=== PATIENT | female | born 1945 | race Caucasian/White ===

== ENCOUNTER → 2017-06-17 | Day surgery (SDC) | payer MEDICARE, BC ==
[~2017-06-17] VITALS: Ht 162.6 cm; Wt 83.9 kg
[~2017-06-17] MED LIST: ACET-1697 PO; ASCO100T6 PO; ASCORBIC ACID PO; ASP81CT PO; CA C1TAB26 PO; CARV12.52; CHELATED ZINC PO; CHOL10008 PO; CHOL200018 PO; CLOP75TA PO; CLPD75T PO; DCS100C PO; FISH1CAP15 PO; FLINTSTONES; FLONASE; GABA-488 PO; GLIP5TAB13 PO; GLUCOSAMINE; HYDR-2890 PO; HYDR-31; HYDR-34 PO; HYDR-3720 PO; HYDR-3816 PO; HYDR1TAB75 PO; HYDR1TAB86 PO; IBP800T PO; IRON; JANUVIA PO; LSRT50T; LTN005OP2 OU; LVT.025T PO; LVT.05T PO; MAG PO; MAGN250T7 PO; MAGN27TA2 PO; METO50TA7 PO; MNTL10T PO; MTF500T PO; MULT-241 PO; MULT-974 PO; NTR.4SL SL; OMG1KC PO; Oxycodone Hcl/Acetaminophen PO; PRV20T PO; PYRI100T6 PO; PYRI200T5 PO; SITA100T PO; SMV20T PO; SODI0.5GEL TOP; VITA1CAP42 PO; VITAMIN B6 PO; ZINC LOZENGES; ZINC PO; [UNRECOGNIZED DRUG - CODE] PO
[2017-06-17 09:03] VITALS: BP 168/74
--- NOTE | 2017-06-17 12:19 | Cardiac Procedure Note-CS/ASA ---
Pre-Procedure Note Pre-Op Procedure Note H&P Reviewed The H&P was reviewed, patient examined and no changes noted. Date H&P Reviewed: Jun 17, 2017 Time H&P Reviewed: 11:45 Conscious Sedation Pre-Proced Time Reviewed: 11:45 ASA Class: 3 Airway Mallampati Classification: ([place] appropriate class) I. II. III, IV Lungs Heart ASA score ASA 1: a normal healthy patient ASA 2: a patient with a mild systemic disease (mid diabetes, controlled hypertension, obesity ASA 3: a patient with a severe systemic disease that limits activity (angina , COPD, prior Myocardial infarction) ASA 4: a patient with an incapacitating disease that is a constant threat to life (CHF, renal failure) ASA 5: a moribund patient not expected to survive 24 hrs. (ruptured aneurysm) ASA 6: a declared brain patient whose organs are being harvested. For emergent operations, add the letter E after the classification Grade 3 Sedation Plan: Analgesia, Amnesia, Plan communicated to team members, Discussed options with patient/fam, Discussed risks with patient/fam Note The patient is an appropriate candidate to undergo the planned procedure, sedation, and anesthesia. The patient immediately re-assessed prior to indication. CLARICE RUTH MD FACP FAC CCDS Jun 17, 2017 12:19
--- NOTE | 2017-06-17 15:47 | OPERATIVE REPORT ---
PROCEDURE PHYSICIAN: CLARICE RUTH DATE OF PROCEDURE: 06/17/2017 PREOPERATIVE DIAGNOSIS: Syncope, near syncope. PROCEDURE: Syncope, near syncope. PROCEDURE: Implantable loop recorder implantation. Aleyda Fontanez is a 71-year-old lady who has been experiencing episodes of near syncope. Implantable loop recorder was implanted after having obtained an informed consent. The left prepectoral area and the sternal area were prepared and draped in the usual sterile fashion. We made a small incision just to the left the sternum and used the tool provided with the [employer] implantable loop recorder to tunnel the device into a subcutaneous pocket and the pocket was closed with 3.0 Vicryl. She tolerated the procedure well. The device is [employer] device with the reference number [id number] and serial number [id number]. Job ID: [id number] Dictated Date: 06/17/2017 12:11:18 Resp Therapist Date: 06/17/2017 15:43:54 / stephani
== END | disposition home or self-care (01) ==
LOC: CATH 08:35
PROVIDERS: ATTEND Internal Medicine Cardiovascular Disease
DX: R55 Syncope and collapse (principal); G47.33 Obstructive sleep apnea (adult) (pediatric); I25.10 Atherosclerotic heart disease of native coronary artery without angina pectoris; R00.2 Palpitations; E78.5 Hyperlipidemia, unspecified; I10 Essential (primary) hypertension; E03.9 Hypothyroidism, unspecified; E66.9 Obesity, unspecified; F41.9 Anxiety disorder, unspecified; Z79.899 Other long term (current) drug therapy; Z68.34 Body mass index [BMI] 34.0-34.9, adult; Z95.1 Presence of aortocoronary bypass graft
CPT/HCPCS: 33282

== ENCOUNTER → 2018-03-05 | Outpatient (CLI) | payer MEDICARE, BC ==
[~2018-03-05] VITALS: Ht 160 cm; Wt 85.7 kg
[~2018-03-05] MED LIST changes: +DEXAMETHASONE 10 MG/ML (DECADRON) 1 ML VIAL ONE; +methylPREDNISolone 80 MG/ML (DEPO MEDROL) VIAL ONE
[2018-03-05 14:40] VITALS: BP 177/74
[2018-03-05 15:11] VITALS: BP 186/74
--- NOTE | 2018-03-05 23:43 | OPERATIVE REPORT ---
DATE OF SERVICE: 03/05/2018 PREOPERATIVE AND POSTOPERATIVE DIAGNOSIS: Lumbar radiculopathy OPERATIVE PROCEDURE: Bilateral L5-S1 transforaminal epidural steroid injection. ANESTHESIA: Propofol. COMPLICATIONS: None. CLINICAL SURGICAL COURSE: After being placed in the prone position upon a procedure table, we then administered Propofol for anesthesia. The area overlying the (higher process, sacral ala) transverse process was identified under fluoroscopic guidance. The skin overlying the area was prepped with Betadine. The skin and the deep structures were anesthetized with 5 mL of 1% Lidocaine. A 25 gauge needle was then carried down to the neural foramen under direct fluoroscopic guidance. The needle was directed to lie under the pedicle at a 6 o'clock position. The needle depth was confirmed by lateral fluoroscopy. The tip of the needle was directed to the posterior aspect of the foramen. Following the appropriate positioning of the needle in the foramen, 1 cc of Isovue 300 was injected. A proximal and distal spread of the dye was noted. No vascular uptake was noted. Finally, 80 mg of Dexamethasone diluted in a total volume of 3 mms of preservative free saline was injected with good wash out of the contrast media observed. No blood, CSF or paresthesia was noted during the procedure. Job ID: [id number] DocumentID: [id number] Dictated Date: 03/05/2018 15:08:57 Studio Producer Date: 03/05/2018 23:43:28 Dictated By: ASH FRIEND DO
== END ==
LOC: CARD 13:39
PROVIDERS: ATTEND Pain Medicine Interventional Pain Medicine
DX: M54.16 Radiculopathy, lumbar region (principal)
CPT/HCPCS: 62321

== ENCOUNTER 2018-06-12 14:25 | Outpatient (RCR) | payer MEDICARE, BC ==
[~2018-06-12 14:25] MED LIST changes: -DEXAMETHASONE 10 MG/ML (DECADRON) 1 ML VIAL ONE; -methylPREDNISolone 80 MG/ML (DEPO MEDROL) VIAL ONE
== END 2018-06-15 | disposition home or self-care (01) ==
PROVIDERS: ATTEND Physician Assistant
DX: R26.9 Unspecified abnormalities of gait and mobility (principal)

== ENCOUNTER 2018-06-26 13:00 | Outpatient (RCR) | payer MEDICARE, BC | END 2018-06-26 15:11 | disposition home or self-care (01) | PROVIDERS: ATTEND Physician Assistant | DX: R26.9 Unspecified abnormalities of gait and mobility (principal); Z98.1 Arthrodesis status; E11.9 Type 2 diabetes mellitus without complications; F32.9 Major depressive disorder, single episode, unspecified; M81.0 Age-related osteoporosis without current pathological fracture; R42 Dizziness and giddiness ==

== ENCOUNTER → 2018-12-30 | Outpatient (CLI) | payer MEDICARE, BC ==
--- NOTE | 2018-12-30 19:45 | Diagnostic Imaging Report ---
INDICATION: Routine screening. Comparison is made with prior mammograms from 07/09/2016 and 11/19/2013. 2-D and 3-D bilateral screening mammography was performed with computer-aided Detection (CAD) system. FINDINGS: Scattered fibroglandular densities are identified bilaterally. There are benign calcifications bilaterally, more numerous on the right than the left. There is a biopsy clip in the upper right breast. No dominant mass or malignant-appearing microcalcifications are seen. A metallic device overlies the left axillary tail. The axillae are otherwise unremarkable. IMPRESSION: No mammographic features suspicious for malignancy are identified. ACR BI-RADS Category 2: Benign findings. Result letter will be mailed to the patient. Note: At least 10% of breast cancer is not imaged by mammography. Dictated by: Dictated on workstation # [id number]
== END ==
LOC: RAD 09:54
PROVIDERS: ATTEND Nurse Practitioner Family
DX: Z12.31 Encounter for screening mammogram for malignant neoplasm of breast (principal)
CPT/HCPCS: 77067

== ENCOUNTER → 2019-11-05 | Outpatient (CLI) | payer MEDICARE, BC | LOC: CARD 13:58 | PROVIDERS: ATTEND Nurse Practitioner Family | DX: I25.10 Atherosclerotic heart disease of native coronary artery without angina pectoris (principal); R07.9 Chest pain, unspecified; R06.09 Other forms of dyspnea; I10 Essential (primary) hypertension; E78.5 Hyperlipidemia, unspecified; I07.1 Rheumatic tricuspid insufficiency | CPT/HCPCS: 93306 ==

== ENCOUNTER → 2019-12-14 | Outpatient (CLI) | payer MEDICARE, BC ==
[~2019-12-14] VITALS: Ht 160 cm; Wt 87.0 kg
[~2019-12-14] MED LIST changes: +CATHETER FLUSH 10 ML SYR IV PRN; +REGADENOSON 0.4 MG/5 ML SYR (LEXISCAN) IV ONE; +meTOprolol 5 MG/5 ML (LOPRESSOR) VIAL IV ONE; +meTOprolol 5 MG/5 ML (LOPRESSOR) VIAL ONE
--- NOTE | 2019-12-14 11:11 | STRESS TEST ---
DATE OF SERVICE: 12/14/2019 RESTING AND POST REGADENOSON TECHNETIUM-99M TETROFOSMIN SPECT CT IMAGING ORDERING PHYSICIAN: Nataly Goodwin APRN PRIMARY PHYSICIAN: Dr. Ott. OTHER PHYSICIAN: Dr. Ruth. CLINICAL DIAGNOSES: Coronary artery disease. Baseline images were carried out after injection of 10.86 mCi of technetium-99m Tetrofosmin. This was followed by 0.4 mg regadenoson and 30.6 mCi of technetium-99m Tetrofosmin for stress imaging. There was subtle nonspecific ST abnormality at baseline. It did not change significantly with regadenoson infusion. The patient noted some headache following regadenoson infusion, which resolved in a few minutes. Overall, she tolerated the procedure well. Review of images at rest and following stress does not indicate significant perfusion defects consistent with myocardial ischemia or infarction. Gated images show normal global left ventricular systolic function with normal regional wall motion. Left ventricular ejection fraction is calculated to be 81%. Left ventricular end diastolic volume 37 mL. TID is absent (1). CONCLUSIONS: 1. No evidence of significant myocardial ischemia or infarction on this study. 2. Normal regional wall motion. 3. Normal to hyperdynamic left ventricular systolic function with a calculated ejection fraction of 81%. Job ID: [id number] DocumentID: [id number] Dictated Date: 12/14/2019 10:53:29 Math Professor Date: 12/14/2019 11:11:02 Dictated By: CLARICE RUTH MD, MA, FACP, FACC,
== END ==
LOC: CARD 07:33
PROVIDERS: ATTEND Nurse Practitioner Family
DX: I25.10 Atherosclerotic heart disease of native coronary artery without angina pectoris (principal); R07.89 Other chest pain; R06.09 Other forms of dyspnea; I10 Essential (primary) hypertension; E78.5 Hyperlipidemia, unspecified
CPT/HCPCS: 78452; 93017

== ENCOUNTER → 2020-01-27 | Outpatient (CLI) | payer MEDICARE, BC ==
[~2020-01-27] MED LIST changes: -CATHETER FLUSH 10 ML SYR IV PRN; -REGADENOSON 0.4 MG/5 ML SYR (LEXISCAN) IV ONE; -meTOprolol 5 MG/5 ML (LOPRESSOR) VIAL IV ONE; -meTOprolol 5 MG/5 ML (LOPRESSOR) VIAL ONE
== END ==
LOC: RAD 14:35
PROVIDERS: ATTEND Nurse Practitioner Family
DX: I70.213 Atherosclerosis of native arteries of extremities with intermittent claudication, bilateral legs (principal)
CPT/HCPCS: 93923

== ENCOUNTER 2020-05-23 06:28 | Outpatient (RCR) | payer MEDICARE, BC ==
[~2020-05-23] VITALS: Ht 162 cm; Wt 85.0 kg
[2020-05-24] MEDS ORDERED: CHOL20003 PO (13:34)
[2020-05-24] MEDS ORDERED: APIX5TAB PO (13:34)
[2020-05-24] MEDS ORDERED: NITR0.4T39 SL (13:34)
[2020-05-24] MEDS ORDERED: ASPI-586 PO (13:34)
[2020-05-24] MEDS ORDERED: [UNRECOGNIZED DRUG - CODE] PO (13:34)
[2020-05-24] MEDS ORDERED: FISH1CAP15 PO (13:34)
[2020-05-24] MEDS ORDERED: POLY15DR14 OP (13:34)
[2020-05-24] MEDS ORDERED: LEVO75TA PO (13:34)
[2020-05-24] MEDS ORDERED: CA C1TAB70 PO (13:34)
[2020-05-24] MEDS ORDERED: PEDI1TAB46 PO (13:34)
[2020-05-24] MEDS ORDERED: ATOR10TA66 PO (13:34)
[2020-05-24] MEDS ORDERED: PYRI100T10 PO (13:34)
[2020-05-24] MEDS ORDERED: LORA10CA PO (13:34)
[2020-05-24] MEDS ORDERED: LATA2.5D5 OP (13:34)
[2020-05-24] MEDS ORDERED: METO50TA7 PO (13:34)
== END 2020-05-24 13:47 | disposition home or self-care (01) ==
LOC: PREOP 06:28
PROVIDERS: ATTEND Specialist
DX: Z01.812 Encounter for preprocedural laboratory examination (principal); H26.9 Unspecified cataract; Z20.828 Contact with and (suspected) exposure to other viral communicable diseases
CPT/HCPCS: 87635

== ENCOUNTER 2020-05-26 07:57 | Day surgery (SDC) | payer MEDICARE, BC ==
[~2020-05-26] VITALS: Ht 160 cm; Wt 85.0 kg
[~2020-05-26 07:57] MED LIST changes: +APIX5TAB PO; +ASPI-586 PO; +ATOR10TA66 PO; +CA C1TAB70 PO; +CHOL20003 PO; +LATA2.5D5 OP; +LEVO75TA PO; +LORA10CA PO; +NITR0.4T39 SL; +PEDI1TAB46 PO; +POLY15DR14 OP; +PYRI100T10 PO; +[UNRECOGNIZED DRUG - CODE] PO
[2020-05-26] MEDS ORDERED: TIMOLOL MALEATE 0.5% 5 ML (TIMOPTIC) BTL OU PRN (08:00)
[2020-05-26] MEDS ORDERED: MOXIFLOXACIN OPHTH SOLN 5 MG/ML 0.3 ML SYRINGE OP ONE (08:00)
[2020-05-26] MEDS ORDERED: LIDOCAINE PF 1% 2 ML VIAL IR PRN (08:00)
[2020-05-26] MEDS ORDERED: POVIDONE (BETADINE) OPHTH SOLN 5% 30 ML OP ONE (08:00)
[2020-05-26 08:05] VITALS: BP 187/80
[2020-05-26] MEDS: TETRACAINE 0.5% OPHTH SOLN 4 ML BTL (SINGLE DOSE ONLY) OU PRN ×4 (08:16→08:32)
[2020-05-26] MEDS: PHENYLEPHRINE 10% OPHTH (NEO-SYN) 5 ML BTL OU SCH ×3 (08:22→08:32)
[2020-05-26] MEDS: CYCLOPENTOLATE 1% (CYCLOGYL) 2 ML DROPS OP SCH ×3 (08:22→08:32)
--- NOTE | 2020-05-26 09:22 | Ophthalmologist Pre-Op Note ---
Pre-Operative Progress Note H&P Reviewed The H&P was reviewed, patient examined and no changes noted. Date H&P Reviewed: May 26, 2020 Time H&P Reviewed: 09:22 Pre-Op Dx Cataract, Right Eye DEBBIE VIDAL MD May 26, 2020 09:22
[2020-05-26] MEDS ORDERED: MIDAZOLAM 2 MG/2 ML (VERSED) VIAL ONE (09:24)
[2020-05-26] MEDS ORDERED: acetaZOLAMIDE ER 500 MG CAP (DIAMOX SEQUELS) PO ONE (09:30)
--- NOTE | 2020-05-26 09:47 | Ophthalmology Operative Report ---
Cataract removal/placement IOL PREOPERATIVE DIAGNOSIS: Cataract Right Eye POSTOPERATIVE DIAGNOSIS: Cataract Right Eye PROCEDURE: Cataract removal and placement of posterior chamber implant, right eye SURGEON: Chuck Vidal ANESTHESIA: Topical with sedation COMPLICATIONS: None ESTIMATED BLOOD LOSS: Minimal DESCRIPTION OF PROCEDURE: After proper informed consent was obtained, the patient, a 75 female, was taken to the Operating Room and the right eye was anesthetized with tetracaine. The right eye was then prepped and draped in the usual manner. A wire lid speculum was placed. A paracentesis was made at the left hand position. Preservative free lidocaine was injected into the anterior chamber followed by viscoelastic. A clear corneal incision was made in the temporal position. A capsulorrhexis was preformed and the central nuclear and cortical material were removed. The posterior capsule was polished and Inder 22.5 AU00T0 IOL was placed into the capsular bag. The residual viscoelastic was aspirated and balanced saline solution was injected into the anterior chamber. Moxifloxacin was injected into the anterior chamber. The wound was checked and found to be water tight. The patient tolerated the procedure well without complications. CHUCK VIDAL MD May 26, 2020 09:47
[2020-05-26 09:55] VITALS: BP 172/75
--- OUTSIDE RECORDS SUMMARY | 2020-05-26 12:03 | XMS REPORT | CCD ---
Author Author Aleyda Ott la Organization Carmelina Ott MD, [facility] Address [facility] [place] [address] Phone Care Team Providers Care X Ray Developer Name Role Phone PP Unavailable CCM Unavailable Summary Purpose Interface Exchange Insurance Providers Payer name Policy type / Coverage type Covered alliance party ID Effective Begin Date Effective End Date WPS Medicare Part B Medicare Part B [id number] 2013 Unknown [facility] icare Part B [id number] 2013 Unkno wn Family history Brother Diagnosis Age At Onset Heart disease Unknown Sister Diagnosis Age At Onset endometrial cancer Unknown Father Diagnosis Age At Onset Heart disease Unknown Mother Diagnosis Age At Onset Heart disease Unknown Social History Social History Element Codes Description Effective Dates Marital status Unknown W idowed 01/14/[address]: [id number] Nonsmoker 01/14/2012 Has the patient ever used illegal drugs? Unknown Has never used illegal drugs 012 Allergies, Adverse Reactions, Alerts Substance Reaction Codes Entered Date Inactivated Date Status * NO KNOWN FOOD CAROLA RGIES Unknown 01/14/2012 No Inactive Date Active * NO KNOWN DRUG CAROLA RGIES Unknown 01/14/2012 No Inactive Date Active Past Medical History Illness Codes Condition Status Onset Date Resolved Date Essential (primary) hypertension ICD-9: 401.1 ICD-10: I10 Active 08/20/2016 Unknown Other specified hypo thyroidism ICD-9: 244.8 ICD-10: E03.8 Active 10/02/2016 Unknown Type 2 diabetes moisés itus without complications ICD-9: 250.00 ICD-10: E11.9 Active 07/07/2014 Unknown Allergic contact hortencia matitis due to cosmetics ICD-9: 692.81 ICD-10: L23.2 Active 06/24/2019 Unknown Rash and other nonsp ecific skin eruption ICD-9: 782.1 ICD-10: R21 Active 03/04/2017 Unknown Atrophy of thyroid ( acquired) ICD-9: 244.8 ICD-10: E03.4 Active 10/23/2016 Unknown Mixed hyperlipidemia ICD-9: 272.4 ICD-10: E78.2 Active 07/07/2014 Unknown Acute laryngopharyng itis ICD-9: 465.0 ICD-10: J06.0 Active 02/17/2019 Unknown Other allergic rhinitis ICD-9: 477.8 ICD-10: J30.89 Active 08/08/2017 Unknown Encounter for screen ing mammogram for malignant neoplasm of breast ICD-9: V76.10 ICD-10: Z12.31 Active 12/31/2018 Unknown Hypothyroidism, unsp ecified ICD-9: 244.9 ICD-10: E03.9 Active 07/07/2014 Unknown Other specified anemias ICD-9: 285.8 ICD-10: D64.89 Active 10/02/2016 Unknown 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 ICD-9: 250.60 ICD-10: E11.42 Active 01/17/2016 Unknown Pain in left leg ICD-9: 729.5 ICD-10: M79.605 Active 08/27/2018 Unknown Pain in right leg ICD-9: 729.5 ICD-10: M79.604 Active 08/27/2018 Unknown Other fatigue ICD-9: 780.79 ICD-10: R53.83 Active 07/23/2016 Unknown Chronic pain syndrome ICD-9: 338.4 ICD-10: G89.4 Active 07/10/2017 Unknown Unsteadiness on feet ICD-9: 781.2 ICD-10: R26.81 Active 02/24/2018 Unknown Vitamin B12 deficien cy anemia, unspecified ICD-9: 281.1 ICD-10: D51.9 Active 02/24/2018 Unknown Pain in left shoulder ICD-9: 719.41 ICD-10: M25.512 Active 11/03/2017 Unknown Major depressive dis order, recurrent, mild ICD-9: 296.31 ICD-10: F33.0 Active 07/10/2017 Unknown Myalgia ICD-9: 729.1 ICD-10: M79.1 Active 07/07/2014 Unknown Sacroiliitis, not el sewhere classified ICD-9: 720.2 ICD-10: M46.1 Active 03/06/2017 Unknown Encounter for genera l adult medical examination with abnormal findings ICD-9: V70.0 ICD-10: Z00.01 Active 11/03/2016 Unknown Pain in thoracic spine ICD-9: 724.1 ICD-10: M54.6 Active 10/02/2016 Unknown Insect bite (nonveno mous) of other part of head, initial encounter ICD-9: 910.4 ICD-10: S00.86XA Active 09/02/2016 Unknown Supraventricular tac hycardia ICD-9: 785.0 ICD-10: I47.1 Active 06/20/2015 Unknown Dermatographic urtic aria ICD-9: 708.3 ICD-10: L50.3 Active 12/20/2015 Unknown Essential (primary) hypertension ICD-9: 401.9 ICD-10: I10 Active 07/07/2014 Unknown Urticaria, unspecified ICD-9: 708.9 ICD-10: L50.9 Active 12/20/2015 Unknown EDEMA ICD-9: 782.3 Active 06/22/2015 Unknow n Elevated temperature ICD-9: 780.60 Active 06/22/2015 Unknown Dyspnea ICD-9: 786.09 Active 06/20/2015 Unknow n TACHYCARDIA ICD-9: 785.0 Active 06/20/2015 Unknow n LUMBAGO ICD-9: 724.2 Active 03/27/2015 Unknow n Sacroiliitis ICD-9: 720.2 Active 03/27/2015 Unknown Hyperlipidemia Unknown Active 07/07/2014 Unknow n DIABETES TYPE II ICD-9: 250.00 Active 07/07/2014 Unknown ESSENTIAL HYPERTENSION ICD-9: 401.9 Active 07/07/2014 Unknown HYPERLIPIDEMIA ICD-9: 272.4 Active 07/07/2014 Unknown HYPOTHYROIDISM ICD-9: 244.9 Active 07/07/2014 Unknown Muscle ache ICD-9: 729.1 Active 07/07/2014 Unknow n Peripheral neuropath y, idiopathic ICD-9: 356.9 Active 01/2014 Unknown Dietary counseling a nd surveillance ICD-9: V65.3 Active 07/2013 Unknown Hypertension Unknown Active 05/18/2012 Unknow n Diabetes Unknown Active 02/11/2012 Unknow n Hypothryroidism Unknown Active 02/11/2012 Unknow n Abdominal bloating ICD- 9: 787.3 Active 02/11/2012 Unknown Rectal lump ICD-9: 787.99 Active 02/11/2012 Unknown UTI (lower urinary t ract infection) ICD-9: 599.0 Active 01/16 Unknown Vaginal yeast infection ICD-9: 112.1 Active 02/11/2012 Unknown Allergies Unknown Inactive 01/14/2012 Unkn own Fibromyalgia Unknown Inactive 01/14/2012 Unkn own Glaucoma Unknown Inactive 01/14/2012 Unkn own Incontinence Unknown Inactive 01/14/2012 Unkn own Problems Condition Codes Effectiv e Dates Condition Status Essential (primary) hypertension ICD-9: 401.1 ICD-10: I10 08/20/2016 Active Other specified hypo thyroidism ICD-9: 244.8 ICD-10: E03.8 10/02/2016 Active Type 2 diabetes moisés itus without complications ICD-9: 250.00 ICD-10: E11.9 07/07/2014 Active Allergic contact hortencia matitis due to cosmetics ICD-9: 692.81 ICD-10: L23.2 06/24/2019 Active Rash and other nonsp ecific skin eruption ICD-9: 782.1 ICD-10: R21 03/04/2017 Active Atrophy of thyroid ( acquired) ICD-9: 244.8 ICD-10: E03.4 10/23/2016 Active Mixed hyperlipidemia ICD-9: 272.4 ICD-10: E78.2 07/07/2014 Active Acute laryngopharyng itis ICD-9: 465.0 ICD-10: J06.0 02/17/2019 Active Other allergic rhinitis ICD-9: 477.8 ICD-10: J30.89 08/08/2017 Active Encounter for screen ing mammogram for malignant neoplasm of breast ICD-9: V76.10 ICD-10: Z12.31 12/31/2018 Active Hypothyroidism, unsp ecified ICD-9: 244.9 ICD-10: E03.9 07/07/2014 Active Other specified anemias ICD-9: 285.8 ICD-10: D64.89 10/02/2016 Active 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 ICD-9: 250.60 ICD-10: E11.42 01/17/2016 Active Pain in left leg ICD-9: 729.5 ICD-10: M79.605 08/27/2018 Active Pain in right leg ICD-9: 729.5 ICD-10: M79.604 08/27/2018 Active Other fatigue ICD-9: 780.79 ICD-10: R53.83 07/23/2016 Active Chronic pain syndrome ICD-9: 338.4 ICD-10: G89.4 07/10/2017 Active Unsteadiness on feet ICD-9: 781.2 ICD-10: R26.81 02/24/2018 Active Vitamin B12 deficien cy anemia, unspecified ICD-9: 281.1 ICD-10: D51.9 02/24/2018 Active Pain in left shoulder ICD-9: 719.41 ICD-10: M25.512 11/03/2017 Active Major depressive dis order, recurrent, mild ICD-9: 296.31 ICD-10: F33.0 07/10/2017 Active Myalgia ICD-9: 729.1 ICD-10: M79.1 07/07/2014 Active Sacroiliitis, not el sewhere classified ICD-9: 720.2 ICD-10: M46.1 03/06/2017 Active Encounter for genera l adult medical examination with abnormal findings ICD-9: V70.0 ICD-10: Z00.01 11/03/2016 Active Pain in thoracic spine ICD-9: 724.1 ICD-10: M54.6 10/02/2016 Active Insect bite (nonveno mous) of other part of head, initial encounter ICD-9: 910.4 ICD-10: S00.86XA 09/02/2016 Active Supraventricular tac hycardia ICD-9: 785.0 ICD-10: I47.1 06/20/2015 Active Dermatographic urtic aria ICD-9: 708.3 ICD-10: L50.3 12/20/2015 Active Essential (primary) hypertension ICD-9: 401.9 ICD-10: I10 07/07/2014 Active Urticaria, unspecified ICD-9: 708.9 ICD-10: L50.9 12/20/2015 Active EDEMA ICD-9: 782.3 06/22/2015 Active Elevated temperature ICD-9: 780.60 06/22/2015 Active Dyspnea ICD-9: 786.09 06/20/2015 Active TACHYCARDIA ICD-9: 785.0 06/20/2015 Active LUMBAGO ICD-9: 724.2 03/27/2015 Active Sacroiliitis ICD-9: 720.2 03/27/2015 Active Hyperlipidemia Unknown 07/07/2014 Active DIABETES TYPE II ICD-9: 250.00 07/07/2014 Active ESSENTIAL HYPERTENSION ICD-9: 401.9 07/07/2014 Active HYPERLIPIDEMIA ICD-9: 272.4 07/07/2014 Active HYPOTHYROIDISM ICD-9: 244.9 07/07/2014 Active Muscle ache ICD-9: 729.1 07/07/2014 Active Peripheral neuropath y, idiopathic ICD-9: 356.9 12/20/2013 Active Dietary counseling a nd surveillance ICD-9: V65.3 10/25/2013 Active Hypertension Unknown 05/18/2012 Active Diabetes Unknown 02/11/2012 Active Hypothryroidism Unknown 02/11/2012 Active Abdominal bloating ICD- 9: 787.3 02/11/2012 Active Rectal lump ICD-9: 787.99 02/11/2012 Active UTI (lower urinary t ract infection) ICD-9: 599.0 02/11/2012 Active Vaginal yeast infection ICD-9: 112.1 02/11/2012 Active Allergies Unknown 01/14/2012 Inactive Fibromyalgia Unknown 01/14/2012 Inactive Glaucoma Unknown 01/14/2012 Inactive Incontinence Unknown 01/14/2012 Inactive Medications Medication Codes Instruc tions Start Date Stop Date Sta tus Fill Instructions atorvastatin 10 mg t ablet RxNorm: 981358 1 Tablet(s) PO every other day 06/30/2019 03/25/2020 Ac tive Synthroid 75 mcg tablet RxNorm: 674314 1 Tablet(s) PO daily 06/30/2019 06/23/2020 Active dispense brand name only - did not herminio ate generic Kenalog 40 mg/mL marguerite pension for injection RxNorm: 6958046 Milliliter(s) Inj 06/24/2019 06/24/2019 In active prednisone 20 mg tablet RxNorm: 158407 2 Tablet(s) PO daily 06/24/2019 06/28/2019 Inactive Zithromax Z-Sony 250 mg tablet RxNorm: 251433 Tablet(s) PO UD 02/17/2019 06/29/2019 Inactive Synthroid 50 mcg tablet RxNorm: 580064 TAKE ONE TABLET BY MOUTH DAILY (DISCONTI NUE LEVOTHYROXINE) 12/14/2018 06/29/2019 Inactive metoprolol succinate ER 50 mg tablet,extended release 24 hr RxNorm: 172267 1 Tablet(s) PO QPM TAKE ONE TABLET BY MOUTH EVERY EVENING 10/20/2018 03/18/2019 Inactive metoprolol succinate ER 50 mg tablet,extended release 24 hr RxNorm: 294741 1 Tablet(s) PO QPM TAKE ONE TABLET BY MOUTH EVERY EVENING 05/08/2018 10/19/2018 Inactive Cymbalta 30 mg capsu le,delayed release RxNorm: 503622 TAKE ONE CAPSULE BY M OUTH DAILY 11/24/2017 06/29/2019 Inactive Synthroid 50 mcg tablet RxNorm: 145250 TAKE ONE TABLET BY MOUTH DAILY (DISCONTI NUE LEVOTHYROXINE) 11/24/2017 12/13/2018 Inactive Voltaren 1 % topical gel RxNorm: 512719 TOP 11/0306/29/2019 Inactive metoprolol succinate ER 50 mg tablet,extended release 24 hr RxNorm: 111556 1 Tablet(s) PO QPM TAKE ONE TABLET BY MOUTH EVERY EVENING 10/06/2017 05/03/2018 Inactive Synthroid 50 mcg tablet RxNorm: 463245 TAKE ONE TABLET BY MOUTH DAILY (DISCONTI NUE LEVOTHYROXINE) 09/04/2017 11/23/2017 Inactive Cymbalta 30 mg capsu le,delayed release RxNorm: 441527 1 Capsule(s) PO daily 07/10/2017 10/07/2017 In active metoprolol succinate ER 50 mg tablet,extended release 24 hr RxNorm: 457121 TAKE ONE TABLET BY MOUTH EVERY EVENING 03/06/2017 10/01/2017 Inactive Kenalog 40 mg/mL marguerite pension for injection RxNorm: 9292732 Milliliter(s) Inj 09/03/2016 09/03/2016 In active Synthroid 50 mcg tablet RxNorm: 423972 1 Tablet(s) PO daily 08/21/2016 08/15/2017 Inactive DC levothyroxine tramadol 50 mg tablet RxNorm: 896614 1 Tablet(s) PO Q4-6H as needed 08/21/2016 06/29/2019 In active metoprolol succinate ER 25 mg tablet,extended release 24 hr RxNorm: 538550 1 Tablet(s) PO QAM 07/24/2016 08/20/2016 Inactive metoprolol succinate ER 50 mg tablet,extended release 24 hr RxNorm: 560676 1 Tablet(s) PO QPM 07/24/2016 02/18/2017 Inactive Synthroid 50 mcg tablet RxNorm: 035450 1 Tablet(s) PO daily 06/10/2016 08/20/2016 Inactive DC levothyroxine Synthroid 50 mcg tablet RxNorm: 798199 1 Tablet(s) PO daily 05/16/2016 06/09/2016 Inactive hydrocortisone 2.5 % topical cream RxNorm: 633912 1 Application TOP TID 05/08/2016 08/05/2016 In active hydrocortisone 2.5 % topical cream RxNorm: 161265 1 Application TOP TID 05/08/2016 05/07/2016 In active betamethasone diprop ionate 0.05 % topical cream RxNorm: 281662 1 Application TOP BID as needed 04/24/2016 05/07/2016 Inactive betamethasone diprop ionate 0.05 % topical cream RxNorm: 379847 1 Application TOP BID as needed 04/24/2016 04/23/2016 Inactive loratadine 10 mg tablet RxNorm: 139757 1 Tablet(s) PO daily 01/18/2016 05/16/2016 Inactive loratadine 10 mg dis integrating tablet RxNorm: 677733 1 Tablet(s) PO daily 01/18/2016 01/17/2016 In active Synthroid 50 mcg tablet RxNorm: 855773 1 Tablet(s) PO daily 01/01/2016 04/29/2016 Inactive Synthroid 50 mcg tablet RxNorm: 003560 1 Tablet(s) PO daily 01/01/2016 12/31/2015 Inactive prednisone 20 mg tablet RxNorm: 780968 3 Tablet(s) PO daily 09/11/2015 09/15/2015 Inactive prednisone 20 mg tablet RxNorm: 602968 3 Tablet(s) PO daily 09/11/2015 09/10/2015 Inactive Abreva 10 % topical cream RxNorm: 373093 1 Application TOP 5x daily 06/23/2015 07/12/2015 Inactive Apply to lip lesions 5 times per day for 10 days prednisone 20 mg tablet RxNorm: 740515 2 Tablet(s) PO daily x3 06/12/2015 06/14/2015 Inactive prednisone 20 mg tablet RxNorm: 635111 2 Tablet(s) PO daily x3 06/12/2015 06/11/2015 Inactive Kenalog 40 mg/mL marguerite pension for injection RxNorm: 2521378 1 Milliliter(s) Inj 03/28/2015 03/28/2015 In active hydrocodone 7.5 mg-a cetaminophen 325 mg tablet RxNorm: 730125 1 Tablet(s) PO Q4-6H as needed for back pain 03/28/2015 06/11/2015 Inactive Synthroid 50 mcg tablet RxNorm: 568384 1 Tablet(s) PO daily TAKE ONE TABLET BY MOUTH EVERY DAY 12/12/2014 12/11/2014 Inactive Synthroid 50 mcg tablet RxNorm: 660489 TAKE ONE TABLET BY MOUTH EVERY DAY 12/12/2014 12/20/2015 In active hydrocodone 7.5 mg-a cetaminophen 325 mg tablet RxNorm: 367018 1 Tablet(s) PO Q4-6H as needed for back pain 07/07/2014 09/04/2014 Inactive Synthroid 50 mcg tablet RxNorm: 492942 1 Tablet(s) PO daily TAKE ONE TABLET BY MOUTH EVERY DAY 07/07/2014 12/11/2014 Inactive Synthroid 50 mcg tablet RxNorm: 823084 TAKE ONE TABLET BY MOUTH EVERY DAY 06/06/2014 06/10/2014 In active Synthroid 50 mcg tablet RxNorm: 814687 TAKE ONE TABLET BY MOUTH EVERY DAY 06/06/2014 06/10/2014 In active Singulair 10 mg tablet RxNorm: 084920 Tablet(s) PO TAKE ONE TABLET BY MOUTH EV FCO03/03/2014 06/22/2015 Inactive hydrocodone 5 mg-kristofer taminophen 500 mg tablet RxNorm: 056237 Tablet(s) PO PRN 01/20/2014 07/06/2014 In active Synthroid 50 mcg tablet RxNorm: 877348 1 Tablet(s) PO daily name brand only 12/14/2013 12/13/2013 In active name brand only Synthroid 50 mcg tablet RxNorm: 107033 1 Tablet(s) PO daily name brand only 12/14/2013 06/05/2014 In active name brand only Januvia 50 mg tablet RxNorm: 828937 1 Tablet(s) PO daily 03/24/2013 05/25/2013 Inactive Singulair 10 mg tablet RxNorm: 629773 Tablet(s) PO TAKE ONE TABLET BY MOUTH EV FCO DAY 03/02/2013 03/02/2014 Inactive levothyroxine 50 mcg tablet RxNorm: 622812 1 Tablet(s) PO daily 02/03/2013 02/02/2013 Inactive levothyroxine 50 mcg tablet RxNorm: 377290 1 Tablet(s) PO daily 02/03/2013 10/18/2013 Inactive levothyroxine 25 mcg tablet RxNorm: 689876 1 1/2 Tablet(s) PO daily 01/29/2013 02/02/2013 Inactive one and one half tab daily (1 11/18)may zhang ve 90 day supply if cheaper levothyroxine 25 mcg tablet RxNorm: 515303 Tablet(s) PO TAKE 1 A ND 1/2 TABLETS ONCE DAILY 11/02/2012 05/25/2013 Inactive glipizide 5 mg tablet RxNorm: 620438 Tablet(s) PO TAKE ONE-HALF TABLET BY ADÁN TH EVERY DAY 10/19/2012 05/25/2013 Inactive metformin 500 mg tablet RxNorm: 837177 Tablet(s) PO TAKE ONE-HALF TABLET BY ADÁN TH TWICE A DAY 10/19/2012 05/25/2013 Inactive Voltaren 1 % Topical Gel RxNorm: 074030 4 Gram(s) TOP QID 10/01/2012 12/25/2015 Inactive levothyroxine 25 mcg tablet RxNorm: 625291 1 1/2 Tablet(s) PO daily 08/03/2012 01/28/2013 Inactive one and one half tab daily (1 2)may zhang ve 90 day supply if cheaper metformin 500 mg tablet RxNorm: 778252 1/2 Tablet(s) PO BID 03/03/2012 08/29/2012 Inactive glipizide 5 mg Tab RxNorm: 835437 1/2 Tablet(s) PO daily 03/03/2012 03/02/2012 Inactive metformin 500 mg Tab RxNorm: 658504 1/2 Tablet(s) PO BID 03/03/2012 03/02/2012 Inactive glipizide 5 mg tablet RxNorm: 931441 1/2 Tablet(s) PO daily 03/03/2012 08/29/2012 Inactive Singulair 10 mg tablet RxNorm: 963242 1 Tablet(s) PO daily 03/02/2012 03/01/2013 Inactive Bactrim DS 800 mg-16 0 mg Tab RxNorm: 345935 1 Tablet(s) PO BID 02/11/2012 02/20/2012 Inactive fluconazole 150 mg Tab RxNorm: 330726 1 Tablet(s) PO daily 02/11/2012 05/25/2013 Inactive levothyroxine 25 mcg tablet RxNorm: 854868 1 /2 Tablet(s) PO daily 01/15/2012 07/12/2012 Inactive one and one half tab daily (11/18)march ve 90 day supply if cheaper levothyroxine 100 mc g Tab RxNorm: 127709 1 Tablet(s) PO daily 09/04/2011 01/14/2012 Inactive Singulair 10 mg Tab RxNorm: 427451 1 Tablet(s) PO daily 09/04/2011 03/01/2012 Inactive Vitamin B-6 100 mg t ablet RxNorm: 302109 2 Tablet(s) PO QPM No Start Date Active Zinc Chelate 15 mg t ablet RxNorm: 1 Tablet(s) PO daily with 1 ,000 mg calcium No Start Date Active Vitamin D3 2,000 uni t tablet RxNorm: 504193 1 Tablet(s) PO QPM No Start Date Active Artificial Tears RxNorm: 966053 ophthalmic No Start Date Active Nitrostat 0.4 mg Sub lingual Tab RxNorm: 752590 Tablet(s) SL PRN No Start Date Active Fish Oil 360 mg-1,20 0 mg capsule RxNorm: 694694 1 Capsule(s) PO daily No Start Date Active latanoprost 0.005 % eye drops RxNorm: 170258 1 Drop(s) OPH each ey e QHS No Start Date Active Vitamin B-12 1,000 m cg tablet RxNorm: 658595 1 Tablet(s) PO daily No Start Date Active Iola Saline nasal RxNorm: 9863 nasal No Start Date Active Flintstones Complete oral RxNorm: oral No Start D ate Active aspirin 81 mg Tab, D elayed Release RxNorm: 100963 1 Tablet(s) PO daily No Start Date Active zinc lozenges RxNorm: 1 PO QHS No Start Date 06/30/2019 Inactive vitamin D3-menaquino ne 7 Oral RxNorm: Oral No Start D ate 12/26/2015 Inactive vitamin B6-vitamin E -magnesium Tab RxNorm: 1 Tablet(s) PO daily No Start Date 12/26/2015 Inactive Zinc Chelate 15 mg t ablet RxNorm: 1 Tablet(s) PO daily with 4 00 mg Magnesium No Start Date 10/23/2016 Inactive pravastatin 20 mg ta blet RxNorm: 609587 1 Tablet(s) PO daily No Start Date 01/19/2014 Inactive Zocor 20 mg Tab RxNorm: 478372 1 Tablet(s) PO QHS No Start Date 05/25/2013 Inactive Plavix 75 mg tablet RxNorm: 020986 1 Tablet(s) PO daily No Start Date 03/28/2015 Inactive metoprolol succinate ER 100 mg tablet,extended release 24 hr RxNorm: 595646 1 Tablet(s) PO daily No Start Date 07/23/2016 Inactive Januvia 100 mg Tab RxNorm: 005611 1 Tablet(s) PO daily No Start Date 05/25/2013 Inactive tramadol 50 mg tablet RxNorm: 331148 1 Tablet(s) PO as needed No Start Date 08/20/2016 Inactive Flintstones Complete Oral RxNorm: Oral No Start D ate 12/26/2015 Inactive Plavix 75 mg Tab RxNorm: 828102 1 Tablet(s) PO every other day No Start Date 05/25/2013 In[address] Accu-Chek Compact Te st strips RxNorm: 1 test Miscellaneous BID No Start Date 10/22/2016 Inactive accu-chek compact plus Accu-Chek Softclix L ancets RxNorm: 1 test Miscellaneous daily No Start Date 10/22/2016 Inactive Fish Oil 1,000 mg Cap RxNorm: 1 Capsule(s) PO daily No Start Date 12/26/2015 Inactive Januvia 50 mg tablet RxNorm: 285525 Tablet(s) PO No Start Date 03/23/2013 Inactive hydrocodone 5 mg-kristofer taminophen 500 mg tablet RxNorm: 967162 Tablet(s) PO PRN No Start Date 01/19/2014 Inactive Synthroid 50 mcg tablet RxNorm: 180034 1 Tablet(s) PO daily name brand only No Start Date 12/13/2013 Inactive name brand only pravastatin 20 mg ta blet RxNorm: 837113 1 Tablet(s) PO QHS No Start Date 06/24/2019 Inactive levothyroxine 25 mcg Tab RxNorm: 759800 1 Tablet(s) PO daily 1 tab q morning on empty stomach No Start Date 01/13/2012 Inactive metoprolol succinate ER 50 mg 24 hr Tab RxNorm: 139562 1 Tablet(s) PO daily No Start Date 12/25/2015 Inactive Vitamin C 100 mg tablet RxNorm: 115048 1 Tablet(s) PO QHS No Start Date 06/29/2019 Inactive pravastatin 40 mg ta blet RxNorm: 841331 Tablet(s) PO No Start Date 12/25/2015 Inactive latanoprost Opht RxNorm: Ophthalmic No Start Date 12/26/2015 Inactive cranberry Oral RxNorm: Oral No Start Date 06/22/2015 Inactive Medication Administered Medication Codes Instruc tions Start Date Status Kenalog 40 mg/mL suspension for injection RxNorm: 2046144 Milliliter 06/24/2019 No longer Active Kenalog 40 mg/mL suspension for injection RxNorm: 2953466 Milliliter 09/03/2016 No longer Active Kenalog 40 mg/mL suspension for injection RxNorm: 8454175 1Milliliter 03/28/2015 N o longer Active Immunizations Vaccine Codes Date Status PPD Unknown 06/23/2015 completed Influenza CVX: 141 10/19 completed Assessments Condition Codes Effectiv e Dates Other specified hypothyroidism ICD-1 0: E03.8 ICD-9: 244.8 06/30/2019 Type 2 diabetes mellitus without complications ICD-10: E11.9 ICD-9: 250.00 06/30/2019 Essential (primary) hypertension ICD -10: I10 ICD-9: 401.1 06/30/2019 Rash and other nonspecific skin eruption ICD-10: R21 ICD-9: 782.1 06/24/2019 Allergic contact dermatitis due to cosmetics ICD-10: L23.2 ICD-9: 692.81 06/24/2019 Atrophy of thyroid (acquired) ICD-10 : E03.4 ICD-9: 244.8 04/21/2019 Mixed hyperlipidemia ICD-10: E78.2 ICD-9: 272.4 04/21/2019 Other allergic rhinitis ICD-10: J30. 89 ICD-9: 477.8 02/17/2019 Acute laryngopharyngitis ICD-10: J06 .0 ICD-9: 465.0 02/17/2019 Encounter for screening mammogram for ma lignant neoplasm of breast ICD-10: Z12.31 ICD-9: V76.10 12/31/2018 Hypothyroidism, unspecified ICD-10: E03.9 ICD-9: 244.9 12/21/2018 Type 2 diabetes mellitus with diabetic polyneuropathy ICD-10: E11.42 ICD-9: 250.60 12/21/2018 Other specified anemias ICD-10: D64. 89 ICD-9: 285.8 12/21/2018 Pain in left leg ICD-10: M79.605 ICD-9: 729.5 08/27/2018 Pain in right leg ICD-10: M79.604 ICD-9: 729.5 08/27/2018 Other fatigue ICD-10: R53.83 ICD-9: 780.79 06/17/2018 Chronic pain syndrome ICD-10: G89.4 ICD-9: 338.4 02/24/2018 Vitamin B12 deficiency anemia, unspecified ICD-10: D51.9 ICD-9: 281.1 02/24/2018 Unsteadiness on feet ICD-10: R26.81 ICD-9: 781.2 02/24/2018 Pain in left shoulder ICD-10: M25.51 2 ICD-9: 719.41 11/03/2017 Major depressive disorder, recurrent, mild ICD-10: F33.0 ICD-9: 296.31 08/08/2017 Myalgia ICD-10: M79.1 ICD-9: 729.1 07/10/2017 Sacroiliitis, not elsewhere classified ICD-10: M46.1 ICD-9: 720.2 03/06/2017 Encounter for general adult medical exam ination with abnormal findings ICD-10: Z00.01 ICD-9: V70.0 11/04/2016 Pain in thoracic spine ICD-10: M54.6 ICD-9: 724.1 10/03/2016 Insect bite (nonvenomous) of other part of head, initial encounter ICD-10: S00.86XA ICD-9: 910.4 09/03/2016 Supraventricular tachycardia ICD-10: I47.1 ICD-9: 785.0 07/24/2016 Urticaria, unspecified ICD-10: L50.9 ICD-9: 708.9 12/21/2015 Essential (primary) hypertension ICD -10: I10 ICD-9: 401.9 12/21/2015 Dermatographic urticaria ICD-10: L50 .3 ICD-9: 708.3 12/21/2015 EDEMA ICD-9: 782.3 06/23 ESSENTIAL HYPERTENSION ICD-9: 401.9 06/23/2015 Elevated temperature ICD-9: 780.60 06/23/2015 TACHYCARDIA ICD-9: 785.0 06/21/2015 Dyspnea ICD-9: 786.09 LUMBAGO ICD-9: 724.2 10/2015 Sacroiliitis ICD-9: 720.2 03/28/2015 HYPOTHYROIDISM ICD-9: 244.9 07/07/2014 Muscle ache ICD-9: 729.1 07/07/2014 HYPERLIPIDEMIA ICD-9: 272.4 07/07/2014 DIABETES TYPE II ICD-9: 250.00 07/07/2014 Peripheral neuropathy, idiopathic IC D-9: 356.9 12/20/2013 Dietary counseling and surveillance ICD-9: V65.3 10/25/2013 Rectal lump ICD-9: 787.99 02/11/2012 UTI (lower urinary tract infection) ICD-9: 599.0 02/11/2012 Vaginal yeast infection ICD-9: 112.1 02/11/2012 DYSURIA ICD-9: 788.1 Abdominal bloating ICD-9: 787.3 02/11/2012 Reason For Visit Reason For Visit Effective Dates Notes hypertension 06/30/2019 rash 06/24/2019 hypertension 04/21/2019 sore throat 02/17/2019 diabetic foot exam 08/27/2018 hypertension 02/24/2018 depression 11/03/2017 le ft shoulder medication follow up 08/08/2017 hypertension 07/10/2017 hypertension 03/06/2017 rash 03/04/2017 Annual Medicare Wellness Exam 11/04/2016 hypertension 10/23/2016 flank pain 10/03/2016 rash 09/03/2016 hypertension 08/21/2016 hypertension 07/24/2016 hypertension 04/24/2016 hypertension 01/18/2016 hypertension 12/21/2015 hypertension 08/17/2015 edema 06/23/2015 shortness of breath 06/21/2015 back pain 03/28/2015 diabetes mellitus 07/07/2014 diabetes mellitus 03/24/2014 diabetes mellitus 01/20/2014 diabetes mellitus 12/20/2013 diabetes mellitus 10/25/2013 diabetes mellitus 10/19/2013 diabetes mellitus 05/25/2013 diabetes mellitus 02/18/2013 hip pain 10/01/2012 diabetes mellitus 05/18/2012 diabetes mellitus 02/11/2012 urinary incontinence 01/14/2012 pt states she had a hysterectomy on 05-27-11 and has had slight incontinence since Results Observation Observation Code Item Item Code Result Date Cbc With Differential Ord2 WBC 7.23 K/ul 06/25/2019 Cbc With Differential Ord2 RBC 4.05 M/ul 06/25/2019 Cbc With Differential Ord2 HGB 12.2 g/dl 06/25/2019 Cbc With Differential Ord2 HCT 37.0 % 06/25/2019 Cbc With Differential Ord2 Neut% 62.8 % 06/25/2019 Cbc With Differential Ord2 MCV 91.4 fl 06/25/2019 Cbc With Differential Ord2 Lymph% 26.3 % 06/25/2019 Cbc With Differential Ord2 MCH 30.1 pg 06/25/2019 Cbc With Differential Ord2 [place]% 9.1 % 06/25/2019 Cbc With Differential Ord2 Eos% 1.5 % 06/25/2019 Cbc With Differential Ord2 MCHC 33.0 pg 06/25/2019 Cbc With Differential Ord2 PLT 277 K/ul 06/25/2019 Cbc With Differential Ord2 Baso% 0.3 % 06/25/2019 Cbc With Differential Ord2 RDW 13.8 % 06/25/2019 Cbc With Differential Ord2 Neut ABS# 4.54 K/ul 06/25/2019 Cbc With Differential Ord2 Lymph ABS# 1.90 K/ul 06/25/2019 Cbc With Differential Ord2 [place] ABS# 0.7 K/ul 06/25/2019 Cbc With Differential Ord2 Eos ABS# 0.1 K/ul 06/25/2019 Cbc With Differential Ord2 Baso ABS# 0.0 K/ul 06/25/2019 Lipid Ord30 CHOL 225 mg/dL 06/25/2019 Lipid Ord30 HDL 46.0 mg/dl 06/25/2019 Lipid Ord30 TRIG 96 mg/dL 06/25/2019 Lipid Ord30 LDL 160 mg/dL 06/25/2019 Lipid Ord30 C/HDL 4.9 Ratio 06/25/2019 Comp Metabolic Aro835 NA 139 mEq/L 06/25/2019 Comp Metabolic Jww832 K 4.3 mEq/L 06/25/2019 Comp Metabolic Eid645 CL 104 mEq/L 06/25/2019 Comp Metabolic Byr640 CO2 28.0 mEq/L 06/25/2019 Comp Metabolic Zpf074 AN ION GAP 11 06/25/2019 Comp Metabolic Mdj784 GL UCOSE 111 mg/dL 06/25/2019 Comp Metabolic Gqg172 Cr eat 0.9 mg/dL 06/25/2019 Comp Metabolic Ibz766 eG FR 62 ml/min/1.73m2 06/25 Comp Metabolic Gwv551 BUN 21 mg/dL 06/25/2019 Comp Metabolic Gok284 B/ C Ratio 22.6 Ratio 06/25/2019 Comp Metabolic Gke149 CA LCIUM 9.6 mg/dL 06/25/2019 Comp Metabolic Hli565 AL K PHOS 66 U/L 06/25/2019 Comp Metabolic Pil830 T(SGOT) 21 U/L 06/25/2019 Comp Metabolic Hkj813 AL T(SGPT) 26 U/L 06/25/2019 Comp Metabolic Nag516 BI LI T 0.4 mg/dL 06/25/2019 Comp Metabolic Tfc817 AL BUMIN 4.2 g/dL 06/25/2019 Comp Metabolic Uuv113 TP RO 6.7 g/dL 06/25/2019 Comp Metabolic Bfv836 GL OB 2.6 g/dL 06/25/2019 Comp Metabolic Ppc811 A/ G Ratio 1.6 Ratio 06/25/2019 Comp Metabolic Hux498 Os mo 281 mOsmo 06/25/2019 %Hba1C Ybv447 % HbA1c 52406-8 6.7 % 06/25/2019 %Hba1C Ouh984 Gluc Ave 146 mg/dL 06/25/2019 Tsh Ord6 TSH (3rd IS) 8.61 uIU/mL 06/25/2019 Free T4 Hfc408 FREE T4 0.61 ng/dL 06/25/2019 Lipid Ord30 CHOL 152 mg/dL 12/30/2018 Lipid Ord30 HDL 44.0 mg/dl 12/30/2018 Lipid Ord30 TRIG 224 mg/dL 12/30/2018 Lipid Ord30 LDL 63 mg/dL 12/30/2018 Lipid Ord30 C/HDL 3.5 Ratio 12/30/2018 Free T4 Lyl683 FREE T4 0.64 ng/dL 12/30/2018 %Hba1C Bor005 % HbA1c 78474-3 6.9 % 12/30/2018 %Hba1C Smf014 Gluc Ave 151 mg/dL 12/30/2018 Comp Metabolic Ysy977 NA 140 mEq/L 12/30/2018 Comp Metabolic Hzn867 K 4.5 mEq/L 12/30/2018 Comp Metabolic Wcm363 CL 107 mEq/L 12/30/2018 Comp Metabolic Oju810 CO2 25.0 mEq/L 12/30/2018 Comp Metabolic Zhe219 AN ION GAP 13 12/30/2018 Comp Metabolic Irt867 GL UCOSE 117 mg/dL 12/30/2018 Comp Metabolic Ysc483 Cr eat 0.8 mg/dL 12/30/2018 Comp Metabolic Bny799 eG FR 79 ml/min/1.73m2 12/30 Comp Metabolic Kpb755 BUN 17 mg/dL 12/30/2018 Comp Metabolic Pyo418 B/ C Ratio 22.4 Ratio 12/30/2018 Comp Metabolic Ulv605 CA LCIUM 9.6 mg/dL 12/30/2018 Comp Metabolic Gpd814 AL K PHOS 69 U/L 12/30/2018 Comp Metabolic Icn486 T(SGOT) 23 U/L 12/30/2018 Comp Metabolic Pcg405 AL T(SGPT) 30 U/L 12/30/2018 Comp Metabolic Tgk548 BI LI T 0.4 mg/dL 12/30/2018 Comp Metabolic Kqr484 AL BUMIN 4.2 g/dL 12/30/2018 Comp Metabolic Hcv247 TP RO 6.6 g/dL 12/30/2018 Comp Metabolic Zrc546 GL OB 2.4 g/dL 12/30/2018 Comp Metabolic Qer302 A/ G Ratio 1.8 Ratio 12/30/2018 Comp Metabolic Dlj596 Os mo 282 mOsmo 12/30/2018 Tsh Ord6 TSH (3rd IS) 3.74 uIU/mL 12/30/2018 Cbc With Differential Ord2 WBC 6.54 K/ul 12/30/2018 Cbc With Differential Ord2 RBC 4.13 M/ul 12/30/2018 Cbc With Differential Ord2 HGB 12.8 g/dl 12/30/2018 Cbc With Differential Ord2 HCT 37.5 % 12/30/2018 Cbc With Differential Ord2 Neut% 61.6 % 12/30/2018 Cbc With Differential Ord2 MCV 90.8 fl 12/30/2018 Cbc With Differential Ord2 Lymph% 28.0 % 12/30/2018 Cbc With Differential Ord2 MCH 31.0 pg 12/30/2018 Cbc With Differential Ord2 [place]% 8.1 % 12/30/2018 Cbc With Differential Ord2 MCHC 34.1 pg 12/30/2018 Cbc With Differential Ord2 Eos% 2.0 % 12/30/2018 Cbc With Differential Ord2 PLT 276 K/ul 12/30/2018 Cbc With Differential Ord2 Baso% 0.3 % 12/30/2018 Cbc With Differential Ord2 RDW 13.6 % 12/30/2018 Cbc With Differential Ord2 Neut ABS# 4.03 K/ul 12/30/2018 Cbc With Differential Ord2 Lymph ABS# 1.83 K/ul 12/30/2018 Cbc With Differential Ord2 [place] ABS# 0.5 K/ul 12/30/2018 Cbc With Differential Ord2 Eos ABS# 0.1 K/ul 12/30/2018 Cbc With Differential Ord2 Baso ABS# 0.0 K/ul 12/30/2018 Comp Metabolic Cgy665 NA 138 mEq/L 02/24/2018 Comp Metabolic Gqd932 K 4.3 mEq/L 02/24/2018 Comp Metabolic Bac482 CL 103 mEq/L 02/24/2018 Comp Metabolic Fgp360 CO2 27.0 mEq/L 02/24/2018 Comp Metabolic Hlc402 AN ION GAP 12 02/24/2018 Comp Metabolic Vsx955 GL UCOSE 96 mg/dL 02/24/2018 Comp Metabolic Dfz457 Cr eat 0.7 mg/dL 02/24/2018 Comp Metabolic Ats297 eG FR 86 ml/min/1.73m2 02/24 Comp Metabolic Qaf757 BUN 17 mg/dL 02/24/2018 Comp Metabolic Abj501 B/ C Ratio 23.9 Ratio 02/24/2018 Comp Metabolic Vit211 CA LCIUM 9.2 mg/dL 02/24/2018 Comp Metabolic Ctr852 AL K PHOS 67 U/L 02/24/2018 Comp Metabolic Ntl161 T(SGOT) 25 U/L 02/24/2018 Comp Metabolic Got242 AL T(SGPT) 25 U/L 02/24/2018 Comp Metabolic Ewi971 BI LI T 0.3 mg/dL 02/24/2018 Comp Metabolic Yly194 AL BUMIN 3.9 g/dL 02/24/2018 Comp Metabolic Fav546 TP RO 6.5 g/dL 02/24/2018 Comp Metabolic Lpd853 GL OB 2.6 g/dL 02/24/2018 Comp Metabolic Otd147 A/ G Ratio 1.5 Ratio 02/24/2018 Comp Metabolic Ahw760 Os mo 277 mOsmo 02/24/2018 Free T4 Xlc792 FREE T4 0.71 ng/dL 02/24/2018 Tsh Ord6 TSH (3rd IS) 2.53 uIU/mL 02/24/2018 B12 Ogt714 B12 360.00 pg/ml 02/24/2018 Cbc With Differential Ord2 WBC 6.99 K/ul 02/24/2018 Cbc With Differential Ord2 RBC 3.98 M/ul 02/24/2018 Cbc With Differential Ord2 HGB 12.1 g/dl 02/24/2018 Cbc With Differential Ord2 HCT 36.4 % 02/24/2018 Cbc With Differential Ord2 Neut% 54.5 % 02/24/2018 Cbc With Differential Ord2 MCV 91.5 fl 02/24/2018 Cbc With Differential Ord2 Lymph% 31.2 % 02/24/2018 Cbc With Differential Ord2 MCH 30.4 pg 02/24/2018 Cbc With Differential Ord2 [place]% 11.3 % 02/24/2018 Cbc With Differential Ord2 MCHC 33.2 pg 02/24/2018 Cbc With Differential Ord2 Eos% 2.7 % 02/24/2018 Cbc With Differential Ord2 PLT 131 K/ul 02/24/2018 Cbc With Differential Ord2 Baso% 0.3 % 02/24/2018 Cbc With Differential Ord2 RDW 13.5 % 02/24/2018 Cbc With Differential Ord2 Neut ABS# 3.81 K/ul 02/24/2018 Cbc With Differential Ord2 Lymph ABS# 2.18 K/ul 02/24/2018 Cbc With Differential Ord2 [place] ABS# 0.8 K/ul 02/24/2018 Cbc With Differential Ord2 Eos ABS# 0.2 K/ul 02/24/2018 Cbc With Differential Ord2 Baso ABS# 0.0 K/ul 02/24/2018 %Hba1C Kqm855 % HbA1c 82349-3 6.5 % 02/24/2018 %Hba1C Aok240 Gluc Ave 140 mg/dL 02/24/2018 Tsh Ord6 hTSH II 3.98 uIU/mL 11/03/2017 Comp Metabolic Ayf584 NA 139 mEq/L 11/03/2017 Comp Metabolic Ggt293 K 4.1 mEq/L 11/03/2017 Comp Metabolic Jaz609 CL 102 mEq/L 11/03/2017 Comp Metabolic Uds067 CO2 28.0 mEq/L 11/03/2017 Comp Metabolic Kif399 AN ION GAP 13 11/03/2017 Comp Metabolic Xxd330 GL UCOSE 96 mg/dL 11/03/[address] Cr eat 0.8 mg/dL 11/03/2017 Comp Metabolic Srq287 eG FR 80 ml/min/1.73m2 11/03 Comp Metabolic Lmh069 BUN 16 mg/dL 11/03/2017 Comp Metabolic Lni868 B/ C Ratio 21.3 Ratio 11/03/2017 Comp Metabolic Oji619 CA LCIUM 9.5 mg/dL 11/03/2017 Comp Metabolic Xha268 AL K PHOS 73 U/L 11/03/2017 Comp Metabolic Zgm710 T(SGOT) 26 U/L 11/03/2017 Comp Metabolic Yzl257 AL T(SGPT) 22 U/L 11/03/2017 Comp Metabolic Kop367 BI LI T 0.4 mg/dL 11/03/2017 Comp Metabolic Tib474 AL BUMIN 4.1 g/dL 11/03/2017 Comp Metabolic Tlv439 TP RO 6.3 g/dL 11/03/2017 Comp Metabolic Fxv703 GL OB 2.2 g/dL 11/03/2017 Comp Metabolic Ihp062 A/ G Ratio 1.9 Ratio 11/03/2017 Comp Metabolic Irm657 Os mo 279 mOsmo 11/03/2017 Cbc With Differential Ord2 WBC 6.55 K/ul 11/03/2017 Cbc With Differential Ord2 RBC 4.09 M/ul 11/03/2017 Cbc With Differential Ord2 HGB 12.2 g/dl 11/03/2017 Cbc With Differential Ord2 HCT 37.5 % 11/03/2017 Cbc With Differential Ord2 Neut% 54.0 % 11/03/2017 Cbc With Differential Ord2 MCV 91.7 fl 11/03/2017 Cbc With Differential Ord2 Lymph% 33.3 % 11/03/2017 Cbc With Differential Ord2 MCH 29.8 pg 11/03/2017 Cbc With Differential Ord2 [place]% 10.4 % 11/03/2017 Cbc With Differential Ord2 MCHC 32.5 pg 11/03/2017 Cbc With Differential Ord2 Eos% 2.0 % 11/03/2017 Cbc With Differential Ord2 PLT 228 K/ul 11/03/2017 Cbc With Differential Ord2 Baso% 0.3 % 11/03/2017 Cbc With Differential Ord2 RDW 13.9 % 11/03/2017 Cbc With Differential Ord2 Neut ABS# 3.54 K/ul 11/03/2017 Cbc With Differential Ord2 Lymph ABS# 2.18 K/ul 11/03/2017 Cbc With Differential Ord2 [place] ABS# 0.7 K/ul 11/03/2017 Cbc With Differential Ord2 Eos ABS# 0.1 K/ul 11/03/2017 Cbc With Differential Ord2 Baso ABS# 0.0 K/ul 11/03/2017 Free T4 Lah912 FREE T4 0.75 ng/dL 11/03/2017 %Hba1C Ktj717 % HbA1c 14283-4 6.4 % 11/03/2017 %Hba1C Epc728 Gluc Ave 137 mg/dL 11/03/2017 Tsh Ord6 hTSH II 1.77 uIU/mL 03/04/2017 Lipid Ord30 CHOL 125 mg/dL 03/04/2017 Lipid Ord30 HDL 38.0 mg/dl 03/04/2017 Lipid Ord30 TRIG 144 mg/dL 03/04/2017 Lipid Ord30 LDL 58 mg/dL 03/04/2017 Lipid Ord30 C/HDL 3.3 Ratio 03/04/2017 Microalbumin Uub785 Micr oAlb <0.7 mg/dL 03/04/2017 Comp Metabolic Epg836 NA 139 mEq/L 03/04/2017 Comp Metabolic Ojg137 K 4.4 mEq/L 03/04/2017 Comp Metabolic Wqd988 CL 104 mEq/L 03/04/2017 Comp Metabolic Pzn328 CO2 27.0 mEq/L 03/04/2017 Comp Metabolic Kgu648 AN ION GAP 12 03/04/2017 Comp Metabolic Pxj358 GL UCOSE 95 mg/dL 03/04/2017 Comp Metabolic Shq498 Cr eat 0.8 mg/dL 03/04/2017 Comp Metabolic Xzb367 eG FR 79 ml/min/1.73m2 03/04 Comp Metabolic Poz970 BUN 13 mg/dL 03/04/2017 Comp Metabolic Sjk562 B/ C Ratio 17.1 Ratio 03/04/2017 Comp Metabolic Bru706 CA LCIUM 9.2 mg/dL 03/04/2017 Comp Metabolic Tar191 AL K PHOS 62 U/L 03/04/2017 Comp Metabolic Zpg865 T(SGOT) 22 U/L 03/04/2017 Comp Metabolic Lbb802 AL T(SGPT) 22 U/L 03/04/2017 Comp Metabolic Ych291 BI LI T 0.5 mg/dL 03/04/2017 Comp Metabolic Ovp620 AL BUMIN 3.8 g/dL 03/04/2017 Comp Metabolic Xpa576 TP RO 6.2 g/dL 03/04/2017 Comp Metabolic Ozd981 GL OB 2.4 g/dL 03/04/2017 Comp Metabolic Qic066 A/ G Ratio 1.6 Ratio 03/04/2017 Comp Metabolic Axc319 Os mo 277 mOsmo 03/04/2017 %Hba1C Mqs995 % HbA1c 50036-7 6.2 % 03/04/2017 %Hba1C Nok341 Gluc Ave 131 mg/dL 03/04/2017 Cbc With Differential Ord2 WBC 6.02 K/ul 03/04/2017 Cbc With Differential Ord2 RBC 4.15 M/ul 03/04/2017 Cbc With Differential Ord2 HGB 12.7 g/dl 03/04/2017 Cbc With Differential Ord2 HCT 38.5 % 03/04/2017 Cbc With Differential Ord2 Neut% 57.0 % 03/04/2017 Cbc With Differential Ord2 MCV 92.8 fl 03/04/2017 Cbc With Differential Ord2 Lymph% 30.6 % 03/04/2017 Cbc With Differential Ord2 MCH 30.6 pg 03/04/2017 Cbc With Differential Ord2 [place]% 9.6 % 03/04/2017 Cbc With Differential Ord2 MCHC 33.0 pg 03/04/2017 Cbc With Differential Ord2 Eos% 2.3 % 03/04/2017 Cbc With Differential Ord2 PLT 262 K/ul 03/04/2017 Cbc With Differential Ord2 Baso% 0.5 % 03/04/2017 Cbc With Differential Ord2 RDW 13.3 % 03/04/2017 Cbc With Differential Ord2 Neut ABS# 3.43 K/ul 03/04/2017 Cbc With Differential Ord2 Lymph ABS# 1.84 K/ul 03/04/2017 Cbc With Differential Ord2 [place] ABS# 0.6 K/ul 03/04/2017 Cbc With Differential Ord2 Eos ABS# 0.1 K/ul 03/04/2017 Cbc With Differential Ord2 Baso ABS# 0.0 K/ul 03/04/2017 B12 Agf651 B12 440.00 pg/ml 10/04/2016 Free T4 Kru308 FREE T4 0.77 ng/dL 10/04/2016 Cbc With Differential Ord2 WBC 9.00 K/ul 10/04/2016 Cbc With Differential Ord2 RBC 4.18 M/ul 10/04/2016 Cbc With Differential Ord2 HGB 12.8 g/dl 10/04/2016 Cbc With Differential Ord2 HCT 38.5 % 10/04/2016 Cbc With Differential Ord2 Neut% 59.4 % 10/04/2016 Cbc With Differential Ord2 MCV 92.1 fl 10/04/2016 Cbc With Differential Ord2 Lymph% 30.8 % 10/04/2016 Cbc With Differential Ord2 MCH 30.6 pg 10/04/2016 Cbc With Differential Ord2 [place]% 8.0 % 10/04/2016 Cbc With Differential Ord2 MCHC 33.2 pg 10/04/2016 Cbc With Differential Ord2 Eos% 1.6 % 10/04/2016 Cbc With Differential Ord2 PLT 303 K/ul 10/04/2016 Cbc With Differential Ord2 Baso% 0.2 % 10/04/2016 Cbc With Differential Ord2 RDW 14.1 % 10/04/2016 Cbc With Differential Ord2 Neut ABS# 5.35 K/ul 10/04/2016 Cbc With Differential Ord2 Lymph ABS# 2.77 K/ul 10/04/2016 Cbc With Differential Ord2 [place] ABS# 0.7 K/ul 10/04/2016 Cbc With Differential Ord2 Eos ABS# 0.1 K/ul 10/04/2016 Cbc With Differential Ord2 Baso ABS# 0.0 K/ul 10/04/2016 Comp Metabolic Znr294 NA 136 mEq/L 10/04/2016 Comp Metabolic Qur149 K 4.0 mEq/L 10/04/2016 Comp Metabolic Irm693 CL 100 mEq/L 10/04/2016 Comp Metabolic Tpx963 CO2 29.0 mEq/L 10/04/2016 Comp Metabolic Wgt391 AN ION GAP 11 10/04/2016 Comp Metabolic Tcw455 GL UCOSE 92 mg/dL 10/04/2016 Comp Metabolic Lnf714 Cr eat 0.7 mg/dL 10/04/2016 Comp Metabolic Cer747 eG FR 85 ml/min/1.73m2 10/04 Comp Metabolic Xja647 BUN 17 mg/dL 10/04/2016 Comp Metabolic Dtr360 B/ C Ratio 23.6 Ratio 10/04/2016 Comp Metabolic Suw024 CA LCIUM 9.7 mg/dL 10/04/2016 Comp Metabolic Cck950 AL K PHOS 86 U/L 10/04/2016 Comp Metabolic Apu114 T(SGOT) 23 U/L 10/04/2016 Comp Metabolic Uhy059 AL T(SGPT) 27 U/L 10/04/2016 Comp Metabolic Rza029 BI LI T 0.3 mg/dL 10/04/2016 Comp Metabolic Zki288 AL BUMIN 4.3 g/dL 10/04/2016 Comp Metabolic Zou010 TP RO 6.9 g/dL 10/04/2016 Comp Metabolic Etf512 GL OB 2.6 g/dL 10/04/2016 Comp Metabolic Qpu030 A/ G Ratio 1.6 Ratio 10/04/2016 Comp Metabolic Cnt492 Os mo 273 mOsmo 10/04/2016 Tsh Ord6 hTSH II 3.75 uIU/mL 10/04/2016 Free T4 Fvy210 FREE T4 0.68 ng/dL 05/17/2016 Tsh Ord6 hTSH II 3.31 uIU/mL 05/17/2016 Alyssa Reflex Profile [id number] ALYSSA (MARCELLA) SCREEN NONE DETECTED 016 Tsh Ord6 hTSH II 6.78 uIU/mL 12/22/2015 C-Reactive Protein Qnt Crqnt CRP 0.2 mg/dl 12/22/2015 Sed Rate Ord21 ESR 15 mm/hr 12/22/2015 Free T4 Luh685 FREE T4 0.70 ng/dL 12/22/2015 Comp Metabolic Zec212 NA 138 mEq/L 12/22/2015 Comp Metabolic Vku528 K 4.3 mEq/L 12/22/2015 Comp Metabolic Uek938 CL 102 mEq/L 12/22/2015 Comp Metabolic Qbt028 CO2 28.0 mEq/L 12/22/2015 Comp Metabolic Fkq131 AN ION GAP 12 12/22/2015 Comp Metabolic Qcj336 GL UCOSE 114 mg/dL 12/22/2015 Comp Metabolic Axm021 Cr eat 0.8 mg/dL 12/22/2015 Comp Metabolic Kum211 eG FR 80 ml/min/1.73m2 12/22 Comp Metabolic Xfr566 BUN 18 mg/dL 12/22/2015 Comp Metabolic Tbj237 B/ C Ratio 23.7 Ratio 12/22/2015 Comp Metabolic Wyv619 CA LCIUM 9.4 mg/dL 12/22/2015 Comp Metabolic Yuw788 AL K PHOS 75 U/L 12/22/2015 Comp Metabolic Hmr115 T(SGOT) 19 U/L 12/22/2015 Comp Metabolic Nca633 AL T(SGPT) 20 U/L 12/22/2015 Comp Metabolic Xec929 BI LI T 0.5 mg/dL 12/22/2015 Comp Metabolic Onw080 AL BUMIN 3.9 g/dL 12/22/2015 Comp Metabolic Fwv963 TP RO 6.2 g/dL 12/22/2015 Comp Metabolic Duz479 GL OB 2.3 g/dL 12/22/2015 Comp Metabolic Kzt958 A/ G Ratio 1.7 Ratio 12/22/2015 Comp Metabolic Fqu568 Os mo 278 mOsmo 12/22/2015 Ra Factor Szh725 RA FACT OR <10 IU/ml 12/22/2015 Lipid Ord30 CHOL 150 mg/dL 12/22/2015 Lipid Ord30 HDL 49.0 mg/dl 12/22/2015 Lipid Ord30 TRIG 108 mg/dL 12/22/2015 Lipid Ord30 LDL 79 mg/dL 12/22/2015 Lipid Ord30 C/HDL 3.1 Ratio 12/22/2015 %Hba1C Mgy772 % HbA1c 54848-3 6.2 % 12/22/2015 %Hba1C Jer184 Gluc Ave 131 mg/dL 12/22/2015 Cbc With Differential Ord2 WBC 5.83 K/ul 12/22/2015 Cbc With Differential Ord2 RBC 4.17 M/ul 12/22/2015 Cbc With Differential Ord2 HGB 12.5 g/dl 12/22/2015 Cbc With Differential Ord2 HCT 38.5 % 12/22/2015 Cbc With Differential Ord2 Neut% 54.7 % 12/22/2015 Cbc With Differential Ord2 MCV 92.3 fl 12/22/2015 Cbc With Differential Ord2 Lymph% 35.3 % 12/22/2015 Cbc With Differential Ord2 MCH 30.0 pg 12/22/2015 Cbc With Differential Ord2 [place]% 7.5 % 12/22/2015 Cbc With Differential Ord2 MCHC 32.5 pg 12/22/2015 Cbc With Differential Ord2 Eos% 2.2 % 12/22/2015 Cbc With Differential Ord2 PLT 260 K/ul 12/22/2015 Cbc With Differential Ord2 Baso% 0.3 % 12/22/2015 Cbc With Differential Ord2 RDW 14.1 % 12/22/2015 Cbc With Differential Ord2 Neut ABS# 3.18 K/ul 12/22/2015 Cbc With Differential Ord2 Lymph ABS# 2.06 K/ul 12/22/2015 Cbc With Differential Ord2 [place] ABS# 0.4 K/ul 12/22/2015 Cbc With Differential Ord2 Eos ABS# 0.1 K/ul 12/22/2015 Cbc With Differential Ord2 Baso ABS# 0.0 K/ul 12/22/2015 Cbc With Differential Ord2 New Analyzer Notice Please note new ref ranges s tarting 11-29-2015 due to implemntation of new five part differential hematolgy analyzer. 12/22/2015 Cbc With Differential Ord2 WBC 8.2 K/uL 06/21/2015 Cbc With Differential Ord2 LYM 2.1 K/uL 06/21/2015 Cbc With Differential Ord2 LYM% 25.3 % 06/21/2015 Cbc With Differential Ord2 NEUT/GRAN 5.5 K/uL 06/21/2015 Cbc With Differential Ord2 NEUT/GRAN % 67.6 % 06/21/2015 Cbc With Differential Ord2 MID 0.6 K/uL 06/21/2015 Cbc With Differential Ord2 MID% 7.1 % 06/21/2015 Cbc With Differential Ord2 RBC 3.72 M/uL 06/21/2015 Cbc With Differential Ord2 HGB 11.0 g/dL 06/21/2015 Cbc With Differential Ord2 HCT 34.6 % 06/21/2015 Cbc With Differential Ord2 MCV 93 fL 06/21/2015 Cbc With Differential Ord2 MCH 30 pg 06/21/2015 Cbc With Differential Ord2 MCHC 32 g/dL 06/21/2015 Cbc With Differential Ord2 PLT 469 K/uL 06/21/2015 Cbc With Differential Ord2 RDW 14.2 % 06/21/2015 Comp Metabolic Pny509 NA 135 mEq/L 06/21/2015 Comp Metabolic Tqh979 K 4.2 mEq/L 06/21/2015 Comp Metabolic Jdd798 CL 99 mEq/L 06/21/2015 Comp Metabolic Aoj135 CO2 27.0 mEq/L 06/21/2015 Comp Metabolic Lvu072 AN ION GAP 13 06/21/2015 Comp Metabolic Ozi009 GL UCOSE 94 mg/dL 06/21/2015 Comp Metabolic Fwu758 Cr eat 0.8 mg/dL 06/21/2015 Comp Metabolic Lzp359 eG FR 81 ml/min/1.73m2 06/21 Comp Metabolic Sri320 BUN 16 mg/dL 06/21/2015 Comp Metabolic Dfh873 B/ C Ratio 21.3 Ratio 06/21/2015 Comp Metabolic Ckw542 CA LCIUM 9.4 mg/dL 06/21/2015 Comp Metabolic Lti832 AL K PHOS 164 U/L 06/21/2015 Comp Metabolic Jtu286 T(SGOT) 22 U/L 06/21/2015 Comp Metabolic Wur332 AL T(SGPT) 23 U/L 06/21/2015 Comp Metabolic Zyv117 BI LI T 0.4 mg/dL 06/21/2015 Comp Metabolic Nld973 AL BUMIN 4.0 g/dL 06/21/2015 Comp Metabolic Key979 TP RO 6.6 g/dL 06/21/2015 Comp Metabolic Doy909 GL OB 2.6 g/dL 06/21/2015 Comp Metabolic Ode590 A/ G Ratio 1.5 Ratio 06/21/2015 Comp Metabolic Dhr938 Os mo 271 mOsmo 06/21/2015 URINALYSIS NONAUTO W/O SCOPE 89864 Specific [place] 1.010 DateTime(Free Text in Apr[employer]) URINALYSIS NONAUTO W/O SCOPE 09537 PH 6.0 DateTime(Free [place] t in ) URINALYSIS NONAUTO W/O SCOPE 38484 GLUCOSE NEG DateTime(Free [place] t in ) URINALYSIS NONAUTO W/O SCOPE 73025 Protein NEG DateTime(Free [place] in ) URINALYSIS NONAUTO W/O SCOPE 76039 Blood TRACE DateTime(Free T ext in ) URINALYSIS NONAUTO W/O SCOPE 08791 Bilirubin NEG DateTime(Free [place] t in [employer]) URINALYSIS NONAUTO W/O SCOPE 60589 Ketones NEG DateTime(Free Te xt in [employer]) URINALYSIS NONAUTO W/O SCOPE 46586 Urobilinogen NEG DateTime(Free Text in [employer]) URINALYSIS NONAUTO W/O SCOPE 36904 Nitrite NEG DateTime(Free [place] t in [employer]) URINALYSIS NONAUTO W/O SCOPE 98102 Leukocytes NEG DateTime(Free Text in Apr[employer]) UA 40397 Specific [place] 1.020 DateTime(Free Text in ) UA 13284 PH 5.0 DateTime(Free Text in ) UA 33041 Protein neg DateTime(Free Text in ) UA 47340 Blood neg DateTime(Free Text in ) UA 77841 Bilirubin neg DateTime(Free Text in ) UA 92789 Ketones neg DateTime(Free Text in ) UA 47694 Urobilinogen 0.2 DateTime(Free Text in ) UA 47605 Nitrite neg DateTime(Free Text in ) UA 62564 Leukocytes neg DateTime(Free Text in ) Review of Systems System Result Effective Dates Constitutional No recent illness 06/30/2019 Constitutional No anorexia 06/30/2019 Constitutional No night sweats 06/30/2019 Constitutional No chills 06/30/2019 Constitutional No diaphoresis 06/30/2019 Constitutional fatigue 0 06/30/2019 Constitutional No fever 06/30/2019 Constitutional No insomnia 06/30/2019 Constitutional No malaise 06/30/2019 Eyes No eye discharge Eyes No eye erythema Ears/Nose/Throat/Neck No dizziness 06/30/2019 Ears/Nose/Throat/Neck No headache 06/30/2019 Ears/Nose/Throat/Neck No otalgia 06/30/2019 Cardiovascular No chest pain/pressure 06/30/2019 Cardiovascular No dyspnea 06/30/2019 Respiratory No productive sputum 06/30/2019 Respiratory No cough Gastrointestinal No abdominal pain 06/30/2019 Gastrointestinal No constipation 06/30/2019 Gastrointestinal No diarrhea 06/30/2019 Genitourinary/Nephrology No dysuria 06/30/2019 Musculoskeletal arthralgia(s) 06/30/2019 Musculoskeletal back pain 06/30/2019 Musculoskeletal joint complaint 06/30/2019 Musculoskeletal myalgias 06/30/2019 Dermatologic pigmentation change 06/30/2019 Dermatologic No rash Neurologic No alteration of consciousness 06/30/2019 Neurologic paresthesia 0 06/30/2019 Psychiatric anxiety 06/17 Psychiatric depression 0 06/30/2019 Endocrine diabetes mellitus type 2 06/30/2019 Constitutional No recent illness 06/24/2019 Cardiovascular hypertension 06/24/2019 Cardiovascular No fatigue 06/24/2019 Dermatologic rash 2018 Respiratory No cough 06/2019 Respiratory No chest congestion 06/24/2019 Respiratory No dyspnea on exertion 06/24/2019 Constitutional No fever 06/24/2019 Constitutional No recent illness 04/21/2019 Constitutional No anorexia 04/21/2019 Constitutional No night sweats 04/21/2019 Constitutional No chills 04/21/2019 Constitutional No diaphoresis 04/21/2019 Constitutional fatigue 0 04/21/2019 Constitutional No fever 04/21/2019 Constitutional No insomnia 04/21/2019 Constitutional No malaise 04/21/2019 Eyes No eye discharge Eyes No eye erythema 03/2019 Ears/Nose/Throat/Neck No dizziness 04/21/2019 Ears/Nose/Throat/Neck No headache 04/21/2019 Ears/Nose/Throat/Neck No otalgia 04/21/2019 Ears/Nose/Throat/Neck sore throat 04/21/2019 Cardiovascular No chest pain/pressure 04/21/2019 Cardiovascular No dyspnea 04/21/2019 Respiratory No productive sputum 04/21/2019 Respiratory No cough 03/2019 Gastrointestinal No abdominal pain 04/21/2019 Gastrointestinal No constipation 04/21/2019 Gastrointestinal No diarrhea 04/21/2019 Genitourinary/Nephrology No dysuria 04/21/2019 Musculoskeletal arthralgia(s) 04/21/2019 Musculoskeletal back pain 04/21/2019 Musculoskeletal joint complaint 04/21/2019 Musculoskeletal myalgias 04/21/2019 Dermatologic No rash 03/2019 Neurologic No alteration of consciousness 04/21/2019 Neurologic paresthesia 0 04/21/2019 Psychiatric anxiety 03/2019 Psychiatric depression 0 04/21/2019 Endocrine diabetes mellitus type 2 04/21/2019 Dermatologic pigmentation change 04/21/2019 Constitutional recent illness 02/17/2019 Constitutional chills Constitutional No diaphoresis 02/17/2019 Constitutional No fever 02/17/2019 Eyes No eye erythema 01/2019 Ears/Nose/Throat/Neck nasal allergies 02/17/2019 Ears/Nose/Throat/Neck nasal discharge 02/17/2019 Ears/Nose/Throat/Neck postnasal drip 02/17/2019 Ears/Nose/Throat/Neck sinus congestion 02/17/2019 Ears/Nose/Throat/Neck sore throat 02/17/2019 Cardiovascular No chest pain/pressure 02/17/2019 Cardiovascular No dyspnea 02/17/2019 Respiratory No chest congestion 02/17/2019 Respiratory cough 2018 Respiratory No dyspnea 0 02/17/2019 Gastrointestinal No constipation 02/17/2019 Gastrointestinal No diarrhea 02/17/2019 Gastrointestinal No nausea 02/17/2019 Gastrointestinal No vomiting 02/17/2019 Dermatologic No rash 01/2019 Neurologic No alteration of consciousness 02/17/2019 Neurologic No mental status change 02/17/2019 Constitutional No recent illness 08/27/2018 Constitutional No anorexia 08/27/2018 Constitutional No night sweats 08/27/2018 Constitutional No chills 08/27/2018 Constitutional No diaphoresis 08/27/2018 Constitutional fatigue 1 Constitutional No fever 08/27/2018 Constitutional No insomnia 08/27/2018 Constitutional No malaise 08/27/2018 Eyes No eye discharge Eyes No eye erythema 09/2018 Ears/Nose/Throat/Neck nasal allergies 08/27/2018 Cardiovascular No chest pain/pressure 08/27/2018 Cardiovascular No dyspnea 08/27/2018 Cardiovascular No edema 08/27/2018 Respiratory No productive sputum 08/27/2018 Respiratory No cough 09/2018 Gastrointestinal No abdominal pain 08/27/2018 Gastrointestinal No constipation 08/27/2018 Gastrointestinal No diarrhea 08/27/2018 Genitourinary/Nephrology No dysuria 08/27/2018 Musculoskeletal back pain 08/27/2018 Musculoskeletal joint complaint 08/27/2018 Dermatologic No rash 09/2018 Neurologic No alteration of consciousness 08/27/2018 Psychiatric depression 1 Neurologic paresthesia 1 Neurologic pain, limb Constitutional No recent illness 02/24/2018 Constitutional No anorexia 02/24/2018 Constitutional No night sweats 02/24/2018 Constitutional No chills 02/24/2018 Constitutional No diaphoresis 02/24/2018 Constitutional fatigue 0 02/24/2018 Constitutional No fever 02/24/2018 Constitutional No insomnia 02/24/2018 Constitutional No malaise 02/24/2018 Constitutional No weight loss 02/24/2018 Constitutional No weight gain 02/24/2018 Eyes No eye discharge Eyes No eye erythema 08/2018 Ears/Nose/Throat/Neck nasal allergies 02/24/2018 Ears/Nose/Throat/Neck nasal discharge 02/24/2018 Cardiovascular No chest pain/pressure 02/24/2018 Cardiovascular No dyspnea 02/24/2018 Cardiovascular No edema 02/24/2018 Respiratory No productive sputum 02/24/2018 Respiratory No cough 08/2018 Gastrointestinal No abdominal pain 02/24/2018 Genitourinary/Nephrology No dysuria 02/24/2018 Musculoskeletal joint complaint 02/24/2018 Dermatologic No rash 08/2018 Neurologic No alteration of consciousness 02/24/2018 Psychiatric depression 0 02/24/2018 Musculoskeletal back pain 02/24/2018 Gastrointestinal No constipation 02/24/2018 Gastrointestinal No diarrhea 02/24/2018 Musculoskeletal No joint complaint 11/03/2017 Constitutional No recent illness 11/03/2017 Constitutional No anorexia 11/03/2017 Constitutional No night sweats 11/03/2017 Constitutional No chills 11/03/2017 Constitutional No diaphoresis 11/03/2017 Constitutional fatigue 1 01/04/2017 Constitutional No fever 11/03/2017 Constitutional No insomnia 11/03/2017 Constitutional No malaise 11/03/2017 Constitutional No weight loss 11/03/2017 Constitutional No weight gain 11/03/2017 Eyes No eye discharge Eyes No eye erythema Ears/Nose/Throat/Neck nasal allergies 11/03/2017 Ears/Nose/Throat/Neck nasal discharge 11/03/2017 Cardiovascular No chest pain/pressure 11/03/2017 Cardiovascular No dyspnea 11/03/2017 Cardiovascular No edema 11/03/2017 Respiratory No productive sputum 11/03/2017 Respiratory No cough Gastrointestinal No abdominal pain 11/03/2017 Genitourinary/Nephrology No dysuria 11/03/2017 Dermatologic No rash Neurologic No alteration of consciousness 11/03/2017 Psychiatric depression 1 01/04/2017 Constitutional No recent illness 08/08/2017 Constitutional No anorexia 08/08/2017 Constitutional No night sweats 08/08/2017 Constitutional No chills 08/08/2017 Constitutional No diaphoresis 08/08/2017 Constitutional fatigue 0 08/08/2017 Constitutional No fever 08/08/2017 Constitutional No insomnia 08/08/2017 Constitutional No malaise 08/08/2017 Constitutional No weight loss 08/08/2017 Constitutional No weight gain 08/08/2017 Eyes No eye erythema Eyes No eye discharge Ears/Nose/Throat/Neck nasal allergies 08/08/2017 Ears/Nose/Throat/Neck nasal discharge 08/08/2017 Cardiovascular No chest pain/pressure 08/08/2017 Cardiovascular No dyspnea 08/08/2017 Cardiovascular No edema 08/08/2017 Respiratory No productive sputum 08/08/2017 Respiratory chest congestion 08/08/2017 Respiratory No cough Gastrointestinal No abdominal pain 08/08/2017 Genitourinary/Nephrology No dysuria 08/08/2017 Dermatologic No rash Musculoskeletal No joint complaint 08/08/2017 Neurologic No alteration of consciousness 08/08/2017 Psychiatric depression 0 08/08/2017 Endocrine No dry or coarse skin 08/08/2017 Constitutional No recent illness 07/10/2017 Constitutional No anorexia 07/10/2017 Constitutional No night sweats 07/10/2017 Constitutional No chills 07/10/2017 Constitutional No diaphoresis 07/10/2017 Constitutional fatigue 0 07/10/2017 Constitutional No fever 07/10/2017 Constitutional No insomnia 07/10/2017 Constitutional No malaise 07/10/2017 Constitutional No weight loss 07/10/2017 Constitutional No weight gain 07/10/2017 Eyes No eye discharge Eyes No eye erythema Ears/Nose/Throat/Neck No dizziness 07/10/2017 Ears/Nose/Throat/Neck No headache 07/10/2017 Ears/Nose/Throat/Neck No otalgia 07/10/2017 Ears/Nose/Throat/Neck sore throat 07/10/2017 Cardiovascular No chest pain/pressure 07/10/2017 Cardiovascular No dyspnea 07/10/2017 Respiratory No productive sputum 07/10/2017 Respiratory No cough Gastrointestinal No abdominal pain 07/10/2017 Gastrointestinal No constipation 07/10/2017 Gastrointestinal No diarrhea 07/10/2017 Genitourinary/Nephrology No dysuria 07/10/2017 Musculoskeletal joint complaint 07/10/2017 Dermatologic No rash Neurologic No alteration of consciousness 07/10/2017 Musculoskeletal arthralgia(s) 07/10/2017 Musculoskeletal myalgias 07/10/2017 Musculoskeletal back pain 07/10/2017 Neurologic paresthesia 0 07/10/2017 Psychiatric anxiety 06/18 Psychiatric depression 0 07/10/2017 Constitutional No recent illness 03/06/2017 Constitutional No anorexia 03/06/2017 Constitutional No night sweats 03/06/2017 Constitutional No chills 03/06/2017 Constitutional No diaphoresis 03/06/2017 Constitutional fatigue 0 03/06/2017 Constitutional No fever 03/06/2017 Constitutional No insomnia 03/06/2017 Constitutional No malaise 03/06/2017 Eyes No blindness 2016 Eyes No vision change Ears/Nose/Throat/Neck No dizziness 03/06/2017 Ears/Nose/Throat/Neck No headache 03/06/2017 Ears/Nose/Throat/Neck No nasal allergies 03/06/2017 Cardiovascular No chest pain/pressure 03/06/2017 Cardiovascular No dyspnea 03/06/2017 Cardiovascular No edema 03/06/2017 Cardiovascular No exercise intolerance 03/06/2017 Cardiovascular No fatigue 03/06/2017 Cardiovascular No near-syncope/dizziness 03/06/2017 Respiratory No productive sputum 03/06/2017 Respiratory No chest congestion 03/06/2017 Respiratory No cough Gastrointestinal No abdominal pain 03/06/2017 Gastrointestinal No constipation 03/06/2017 Gastrointestinal No nausea 03/06/2017 Gastrointestinal No vomiting 03/06/2017 Dermatologic No rash Dermatologic No sores Neurologic No alteration of consciousness 03/06/2017 Psychiatric No anxiety 0 03/06/2017 Psychiatric No depression 03/06/2017 Musculoskeletal stiffness 03/06/2017 Constitutional No recent illness 03/04/2017 Constitutional No anorexia 03/04/2017 Constitutional No night sweats 03/04/2017 Constitutional No chills 03/04/2017 Constitutional No diaphoresis 03/04/2017 Constitutional fatigue 0 03/04/2017 Constitutional No fever 03/04/2017 Constitutional No insomnia 03/04/2017 Constitutional No malaise 03/04/2017 Constitutional No weight loss 03/04/2017 Constitutional No weight gain 03/04/2017 Dermatologic rash 2016 Musculoskeletal joint complaint 03/04/2017 Constitutional No recent illness 11/04/2016 Constitutional No chills 11/04/2016 Constitutional No diaphoresis 11/04/2016 Constitutional No fever 11/04/2016 Eyes No eye erythema Ears/Nose/Throat/Neck No nasal allergies 11/04/2016 Ears/Nose/Throat/Neck No nasal discharge 11/04/2016 Cardiovascular No dyspnea 11/04/2016 Respiratory No chest congestion 11/04/2016 Respiratory No cough Respiratory No dyspnea 1 01/05/2016 Gastrointestinal No abdominal pain 11/04/2016 Gastrointestinal No vomiting 11/04/2016 Musculoskeletal joint complaint 11/04/2016 Dermatologic No rash Neurologic No alteration of consciousness 11/04/2016 Neurologic No mental status change 11/04/2016 Cardiovascular No chest pain/pressure 11/04/2016 Respiratory dyspnea on exertion 11/04/2016 Constitutional No recent illness 10/23/2016 Constitutional No anorexia 10/23/2016 Constitutional No night sweats 10/23/2016 Constitutional No chills 10/23/2016 Constitutional No diaphoresis 10/23/2016 Constitutional fatigue 1 12/24/2015 Constitutional No fever 10/23/2016 Constitutional No insomnia 10/23/2016 Constitutional No malaise 10/23/2016 Ears/Nose/Throat/Neck No dizziness 10/23/2016 Ears/Nose/Throat/Neck No headache 10/23/2016 Ears/Nose/Throat/Neck No nasal allergies 10/23/2016 Cardiovascular No chest pain/pressure 10/23/2016 Cardiovascular No dyspnea 10/23/2016 Cardiovascular No edema 10/23/2016 Cardiovascular No exercise intolerance 10/23/2016 Cardiovascular No fatigue 10/23/2016 Cardiovascular No near-syncope/dizziness 10/23/2016 Respiratory No productive sputum 10/23/2016 Respiratory No chest congestion 10/23/2016 Respiratory No cough 05/2016 Gastrointestinal No abdominal pain 10/23/2016 Gastrointestinal No constipation 10/23/2016 Gastrointestinal No nausea 10/23/2016 Gastrointestinal No vomiting 10/23/2016 Musculoskeletal swelling 10/23/2016 Dermatologic No rash 05/2016 Dermatologic No sores Neurologic No alteration of consciousness 10/23/2016 Psychiatric No anxiety 1 12/24/2015 Psychiatric No depression 10/23/2016 Eyes No blindness 2015 Eyes No vision change Dermatologic ecchymosis 10/23/2016 Constitutional No recent illness 10/03/2016 Constitutional No chills 10/03/2016 Constitutional No fever 10/03/2016 Eyes No eye erythema Ears/Nose/Throat/Neck No nasal discharge 10/03/2016 Cardiovascular No chest pain/pressure 10/03/2016 Cardiovascular No dyspnea 10/03/2016 Respiratory No cough Respiratory No dyspnea 1 12/03/2015 Musculoskeletal joint complaint 10/03/2016 Neurologic No alteration of consciousness 10/03/2016 Neurologic No mental status change 10/03/2016 Constitutional No recent illness 09/03/2016 Constitutional No anorexia 09/03/2016 Constitutional No night sweats 09/03/2016 Constitutional No chills 09/03/2016 Constitutional No diaphoresis 09/03/2016 Constitutional fatigue 1 Constitutional No fever 09/03/2016 Constitutional No insomnia 09/03/2016 Constitutional No weight gain 09/03/2016 Constitutional No weight loss 09/03/2016 Constitutional No malaise 09/03/2016 Dermatologic erythema Constitutional No recent illness 08/21/2016 Constitutional No anorexia 08/21/2016 Constitutional No night sweats 08/21/2016 Constitutional No chills 08/21/2016 Constitutional No diaphoresis 08/21/2016 Constitutional fatigue 1 Constitutional No fever 08/21/2016 Constitutional No insomnia 08/21/2016 Constitutional No malaise 08/21/2016 Ears/Nose/Throat/Neck No dizziness 08/21/2016 Ears/Nose/Throat/Neck No headache 08/21/2016 Ears/Nose/Throat/Neck No nasal allergies 08/21/2016 Cardiovascular No chest pain/pressure 08/21/2016 Cardiovascular No dyspnea 08/21/2016 Cardiovascular No edema 08/21/2016 Cardiovascular No exercise intolerance 08/21/2016 Cardiovascular No fatigue 08/21/2016 Cardiovascular No near-syncope/dizziness 08/21/2016 Respiratory No productive sputum 08/21/2016 Respiratory No chest congestion 08/21/2016 Respiratory No cough 03/2016 Gastrointestinal No abdominal pain 08/21/2016 Gastrointestinal No constipation 08/21/2016 Gastrointestinal No nausea 08/21/2016 Gastrointestinal No vomiting 08/21/2016 Musculoskeletal swelling 08/21/2016 Dermatologic No rash 03/2016 Dermatologic No sores Dermatologic ecchymosis 08/21/2016 Neurologic No alteration of consciousness 08/21/2016 Psychiatric No anxiety 1 Psychiatric No depression 08/21/2016 Constitutional No anorexia 07/24/2016 Constitutional No night sweats 07/24/2016 Constitutional No chills 07/24/2016 Constitutional No diaphoresis 07/24/2016 Constitutional fatigue 0 07/24/2016 Constitutional No fever 07/24/2016 Constitutional No insomnia 07/24/2016 Constitutional No malaise 07/24/2016 Eyes No eye discharge Eyes No eye erythema 05/2016 Ears/Nose/Throat/Neck No dizziness 07/24/2016 Ears/Nose/Throat/Neck No headache 07/24/2016 Ears/Nose/Throat/Neck No nasal allergies 07/24/2016 Cardiovascular No chest pain/pressure 07/24/2016 Cardiovascular No dyspnea 07/24/2016 Cardiovascular No edema 07/24/2016 Cardiovascular No exercise intolerance 07/24/2016 Cardiovascular No fatigue 07/24/2016 Cardiovascular No near-syncope/dizziness 07/24/2016 Respiratory No productive sputum 07/24/2016 Respiratory No chest congestion 07/24/2016 Respiratory No cough 05/2016 Gastrointestinal No abdominal pain 07/24/2016 Gastrointestinal No constipation 07/24/2016 Gastrointestinal No nausea 07/24/2016 Gastrointestinal No vomiting 07/24/2016 Genitourinary/Nephrology No dysuria 07/24/2016 Musculoskeletal swelling 07/24/2016 Dermatologic rash 2015 Dermatologic No sores Dermatologic ecchymosis 07/24/2016 Neurologic No alteration of consciousness 07/24/2016 Psychiatric No anxiety 0 07/24/2016 Psychiatric No depression 07/24/2016 Constitutional No recent illness 04/24/2016 Constitutional No anorexia 04/24/2016 Constitutional No night sweats 04/24/2016 Constitutional No chills 04/24/2016 Constitutional No diaphoresis 04/24/2016 Constitutional fatigue 0 04/24/2016 Constitutional No fever 04/24/2016 Constitutional No insomnia 04/24/2016 Constitutional No malaise 04/24/2016 Eyes No eye discharge Eyes No eye erythema 06/2016 Ears/Nose/Throat/Neck No dizziness 04/24/2016 Ears/Nose/Throat/Neck No headache 04/24/2016 Ears/Nose/Throat/Neck No nasal allergies 04/24/2016 Cardiovascular No chest pain/pressure 04/24/2016 Cardiovascular No dyspnea 04/24/2016 Cardiovascular No edema 04/24/2016 Cardiovascular No exercise intolerance 04/24/2016 Cardiovascular No fatigue 04/24/2016 Cardiovascular No near-syncope/dizziness 04/24/2016 Respiratory No productive sputum 04/24/2016 Respiratory No chest congestion 04/24/2016 Respiratory No cough 06/2016 Gastrointestinal No abdominal pain 04/24/2016 Gastrointestinal No constipation 04/24/2016 Gastrointestinal No nausea 04/24/2016 Gastrointestinal No vomiting 04/24/2016 Genitourinary/Nephrology No dysuria 04/24/2016 Musculoskeletal swelling 04/24/2016 Dermatologic No rash 06/2016 Dermatologic No sores Dermatologic ecchymosis 04/24/2016 Neurologic No alteration of consciousness 04/24/2016 Constitutional No recent illness 01/18/2016 Constitutional No anorexia 01/18/2016 Constitutional No night sweats 01/18/2016 Constitutional No chills 01/18/2016 Constitutional No diaphoresis 01/18/2016 Constitutional fatigue 0 01/18/2016 Constitutional No fever 01/18/2016 Constitutional No insomnia 01/18/2016 Constitutional No malaise 01/18/2016 Eyes No eye discharge Eyes No eye erythema 01/2016 Ears/Nose/Throat/Neck No dizziness 01/18/2016 Ears/Nose/Throat/Neck No headache 01/18/2016 Ears/Nose/Throat/Neck No nasal allergies 01/18/2016 Respiratory No productive sputum 01/18/2016 Respiratory No chest congestion 01/18/2016 Respiratory No cough 01/2016 Gastrointestinal No abdominal pain 01/18/2016 Gastrointestinal No constipation 01/18/2016 Gastrointestinal No nausea 01/18/2016 Gastrointestinal No vomiting 01/18/2016 Genitourinary/Nephrology No dysuria 01/18/2016 Musculoskeletal swelling 01/18/2016 Dermatologic No rash 01/2016 Dermatologic No sores Dermatologic ecchymosis 01/18/2016 Neurologic No alteration of consciousness 01/18/2016 Cardiovascular No chest pain/pressure 01/18/2016 Cardiovascular No dyspnea 01/18/2016 Cardiovascular No edema 01/18/2016 Cardiovascular No exercise intolerance 01/18/2016 Cardiovascular No fatigue 01/18/2016 Cardiovascular No near-syncope/dizziness 01/18/2016 Constitutional No recent illness 12/21/2015 Constitutional No anorexia 12/21/2015 Constitutional No night sweats 12/21/2015 Constitutional No chills 12/21/2015 Constitutional No diaphoresis 12/21/2015 Constitutional fatigue 0 12/21/2015 Constitutional No fever 12/21/2015 Constitutional No insomnia 12/21/2015 Constitutional No malaise 12/21/2015 Eyes No eye discharge Eyes No eye erythema 02/2016 Ears/Nose/Throat/Neck No dizziness 12/21/2015 Ears/Nose/Throat/Neck No headache 12/21/2015 Ears/Nose/Throat/Neck No nasal allergies 12/21/2015 Respiratory No productive sputum 12/21/2015 Respiratory No chest congestion 12/21/2015 Respiratory No cough 02/2016 Gastrointestinal No abdominal pain 12/21/2015 Gastrointestinal No constipation 12/21/2015 Gastrointestinal No nausea 12/21/2015 Gastrointestinal No vomiting 12/21/2015 Genitourinary/Nephrology No dysuria 12/21/2015 Musculoskeletal swelling 12/21/2015 Dermatologic No rash 02/2016 Dermatologic No sores Dermatologic ecchymosis 12/21/2015 Neurologic No alteration of consciousness 12/21/2015 Constitutional No recent illness 08/17/2015 Constitutional No anorexia 08/17/2015 Constitutional No night sweats 08/17/2015 Constitutional No chills 08/17/2015 Constitutional No diaphoresis 08/17/2015 Constitutional fatigue 1 Constitutional No fever 08/17/2015 Constitutional No insomnia 08/17/2015 Constitutional No malaise 08/17/2015 Eyes No eye discharge Eyes No eye erythema 11/2014 Ears/Nose/Throat/Neck No dizziness 08/17/2015 Ears/Nose/Throat/Neck No headache 08/17/2015 Ears/Nose/Throat/Neck No nasal allergies 08/17/2015 Respiratory No productive sputum 08/17/2015 Respiratory No chest congestion 08/17/2015 Respiratory No cough 11/2014 Gastrointestinal No abdominal pain 08/17/2015 Gastrointestinal No constipation 08/17/2015 Gastrointestinal No nausea 08/17/2015 Gastrointestinal No vomiting 08/17/2015 Genitourinary/Nephrology No dysuria 08/17/2015 Musculoskeletal swelling 08/17/2015 Dermatologic No rash 11/2014 Dermatologic No sores Dermatologic ecchymosis 08/17/2015 Neurologic No alteration of consciousness 08/17/2015 Constitutional No recent illness 06/23/2015 Constitutional No anorexia 06/23/2015 Constitutional No night sweats 06/23/2015 Constitutional No chills 06/23/2015 Constitutional No diaphoresis 06/23/2015 Constitutional No fatigue 06/23/2015 Constitutional No fever 06/23/2015 Constitutional insomnia 06/23/2015 Eyes No blindness 2014 Eyes No eye discharge Eyes No eye erythema 05/2015 Ears/Nose/Throat/Neck No headache 06/23/2015 Ears/Nose/Throat/Neck No sore throat 06/23/2015 Cardiovascular No chest pain/pressure 06/23/2015 Cardiovascular No fatigue 06/23/2015 Respiratory No chest congestion 06/23/2015 Respiratory No chest tightness 06/23/2015 Respiratory cough 2014 Respiratory dyspnea on exertion 06/23/2015 Gastrointestinal No abdominal pain 06/23/2015 Gastrointestinal No constipation 06/23/2015 Gastrointestinal No diarrhea 06/23/2015 Gastrointestinal No nausea 06/23/2015 Gastrointestinal No vomiting 06/23/2015 Genitourinary/Nephrology No dysuria 06/23/2015 Genitourinary/Nephrology No hematuria 06/23/2015 Musculoskeletal back pain 06/23/2015 Dermatologic No rash 05/2015 Dermatologic sores 06/23 Gastrointestinal No constipation 06/21/2015 Gastrointestinal No diarrhea 06/21/2015 Gastrointestinal No abdominal pain 06/21/2015 Gastrointestinal No vomiting 06/21/2015 Gastrointestinal No nausea 06/21/2015 Constitutional No recent illness 06/21/2015 Constitutional No anorexia 06/21/2015 Constitutional No night sweats 06/21/2015 Constitutional No chills 06/21/2015 Constitutional No diaphoresis 06/21/2015 Constitutional No fatigue 06/21/2015 Constitutional No fever 06/21/2015 Constitutional insomnia 06/21/2015 Eyes No blindness 2014 Eyes No eye discharge Eyes No eye erythema 03/2015 Ears/Nose/Throat/Neck No sore throat 06/21/2015 Ears/Nose/Throat/Neck No headache 06/21/2015 Cardiovascular No chest pain/pressure 06/21/2015 Cardiovascular No fatigue 06/21/2015 Respiratory cough 2014 Respiratory No chest tightness 06/21/2015 Respiratory No chest congestion 06/21/2015 Genitourinary/Nephrology No dysuria 06/21/2015 Genitourinary/Nephrology No hematuria 06/21/2015 Dermatologic No rash 03/2015 Dermatologic sores 06/21 Musculoskeletal back pain 06/21/2015 Respiratory dyspnea on exertion 06/21/2015 Constitutional No recent illness 03/28/2015 Constitutional No anorexia 03/28/2015 Constitutional No night sweats 03/28/2015 Constitutional No chills 03/28/2015 Constitutional No diaphoresis 03/28/2015 Constitutional fatigue 0 03/28/2015 Constitutional No fever 03/28/2015 Constitutional No insomnia 03/28/2015 Constitutional No malaise 03/28/2015 Constitutional No weight loss 03/28/2015 Constitutional No weight gain 03/28/2015 Cardiovascular chest pain/pressure 03/28/2015 Cardiovascular No edema 03/28/2015 Respiratory No productive sputum 03/28/2015 Respiratory No chest congestion 03/28/2015 Respiratory cough 2014 Ears/Nose/Throat/Neck nasal allergies 03/28/2015 Ears/Nose/Throat/Neck nasal discharge 03/28/2015 Eyes No eye discharge Eyes No eye erythema 10/2015 Gastrointestinal No nausea 03/28/2015 Gastrointestinal No vomiting 03/28/2015 Genitourinary/Nephrology No dysuria 03/28/2015 Musculoskeletal back pain 03/28/2015 Dermatologic No rash 10/2015 Neurologic No alteration of consciousness 03/28/2015 Constitutional No recent illness 07/07/2014 Constitutional No anorexia 07/07/2014 Constitutional No night sweats 07/07/2014 Constitutional No chills 07/07/2014 Constitutional No diaphoresis 07/07/2014 Constitutional fatigue 0 07/07/2014 Constitutional No fever 07/07/2014 Constitutional No insomnia 07/07/2014 Constitutional No malaise 07/07/2014 Eyes No eye discharge Eyes No eye erythema Ears/Nose/Throat/Neck No dizziness 07/07/2014 Ears/Nose/Throat/Neck No headache 07/07/2014 Ears/Nose/Throat/Neck No nasal allergies 07/07/2014 Respiratory No productive sputum 07/07/2014 Respiratory No chest congestion 07/07/2014 Respiratory No cough Gastrointestinal No abdominal pain 07/07/2014 Gastrointestinal No constipation 07/07/2014 Gastrointestinal No nausea 07/07/2014 Gastrointestinal No vomiting 07/07/2014 Genitourinary/Nephrology No dysuria 07/07/2014 Musculoskeletal swelling 07/07/2014 Dermatologic No rash Dermatologic No sores Dermatologic ecchymosis 07/07/2014 Neurologic No alteration of consciousness 07/07/2014 Constitutional No recent illness 03/24/2014 Constitutional No anorexia 03/24/2014 Constitutional No night sweats 03/24/2014 Constitutional No chills 03/24/2014 Constitutional No diaphoresis 03/24/2014 Constitutional fatigue 0 03/24/2014 Constitutional No fever 03/24/2014 Constitutional No insomnia 03/24/2014 Constitutional No malaise 03/24/2014 Eyes No eye discharge Eyes No eye erythema 06/2014 Ears/Nose/Throat/Neck No dizziness 03/24/2014 Ears/Nose/Throat/Neck No headache 03/24/2014 Ears/Nose/Throat/Neck No nasal allergies 03/24/2014 Respiratory No productive sputum 03/24/2014 Respiratory No chest congestion 03/24/2014 Respiratory No cough 06/2014 Gastrointestinal No abdominal pain 03/24/2014 Gastrointestinal No constipation 03/24/2014 Gastrointestinal No diarrhea 03/24/2014 Gastrointestinal No nausea 03/24/2014 Gastrointestinal No vomiting 03/24/2014 Genitourinary/Nephrology No dysuria 03/24/2014 Musculoskeletal swelling 03/24/2014 Musculoskeletal joint complaint 03/24/2014 Dermatologic No rash 06/2014 Dermatologic No sores Dermatologic ecchymosis 03/24/2014 Neurologic No alteration of consciousness 03/24/2014 Constitutional No recent illness 01/20/2014 Constitutional No anorexia 01/20/2014 Constitutional No night sweats 01/20/2014 Constitutional No chills 01/20/2014 Constitutional No diaphoresis 01/20/2014 Constitutional fatigue 0 01/20/2014 Constitutional No fever 01/20/2014 Constitutional No insomnia 01/20/2014 Constitutional No malaise 01/20/2014 Eyes No eye erythema 04/2014 Eyes No eye discharge Ears/Nose/Throat/Neck No dizziness 01/20/2014 Ears/Nose/Throat/Neck No headache 01/20/2014 Ears/Nose/Throat/Neck No nasal allergies 01/20/2014 Respiratory No productive sputum 01/20/2014 Respiratory No chest congestion 01/20/2014 Respiratory No cough 04/2014 Gastrointestinal No abdominal pain 01/20/2014 Gastrointestinal No constipation 01/20/2014 Gastrointestinal No diarrhea 01/20/2014 Gastrointestinal No vomiting 01/20/2014 Gastrointestinal No nausea 01/20/2014 Genitourinary/Nephrology No dysuria 01/20/2014 Musculoskeletal swelling 01/20/2014 Dermatologic No sores Dermatologic No rash 04/2014 Neurologic No alteration of consciousness 01/20/2014 Musculoskeletal joint complaint 01/20/2014 Dermatologic ecchymosis 01/20/2014 Constitutional No recent illness 12/20/2013 Constitutional No anorexia 12/20/2013 Constitutional No night sweats 12/20/2013 Constitutional No chills 12/20/2013 Constitutional No diaphoresis 12/20/2013 Constitutional No fatigue 12/20/2013 Constitutional No fever 12/20/2013 Constitutional No insomnia 12/20/2013 Constitutional No malaise 12/20/2013 Eyes No eye discharge Eyes No eye erythema 01/2014 Ears/Nose/Throat/Neck No nasal discharge 12/20/2013 Cardiovascular No chest pain/pressure 12/20/2013 Respiratory No cough 01/2014 Gastrointestinal No nausea 12/20/2013 Gastrointestinal No vomiting 12/20/2013 Genitourinary/Nephrology No dysuria 12/20/2013 Psychiatric No anxiety 0 12/20/2013 Psychiatric No depression 12/20/2013 Dermatologic No rash 01/2014 Dermatologic No scar 01/2014 Constitutional No anorexia 10/25/2013 Constitutional No recent illness 10/25/2013 Constitutional No night sweats 10/25/2013 Constitutional No chills 10/25/2013 Constitutional No diaphoresis 10/25/2013 Constitutional No fatigue 10/25/2013 Constitutional No fever 10/25/2013 Constitutional No insomnia 10/25/2013 Constitutional No malaise 10/25/2013 Eyes No eye discharge Eyes No eye erythema 07/2013 Ears/Nose/Throat/Neck No nasal discharge 10/25/2013 Cardiovascular No chest pain/pressure 10/25/2013 Respiratory No cough 07/2013 Gastrointestinal No nausea 10/25/2013 Gastrointestinal No vomiting 10/25/2013 Genitourinary/Nephrology No dysuria 10/25/2013 Constitutional No recent illness 10/19/2013 Constitutional No anorexia 10/19/2013 Constitutional No night sweats 10/19/2013 Constitutional No chills 10/19/2013 Constitutional No diaphoresis 10/19/2013 Constitutional No fatigue 10/19/2013 Constitutional No fever 10/19/2013 Eyes No eye discharge Eyes No eye erythema 01/2013 Ears/Nose/Throat/Neck dizziness 10/19/2013 Ears/Nose/Throat/Neck No nasal discharge 10/19/2013 Ears/Nose/Throat/Neck No sore throat 10/19/2013 Ears/Nose/Throat/Neck No sinus congestion 10/19/2013 Cardiovascular No chest pain/pressure 10/19/2013 Cardiovascular No dyspnea 10/19/2013 Respiratory No chest congestion 10/19/2013 Respiratory No cough 01/2013 Gastrointestinal No abdominal pain 10/19/2013 Gastrointestinal constipation 10/19/2013 Gastrointestinal No diarrhea 10/19/2013 Gastrointestinal No nausea 10/19/2013 Gastrointestinal No vomiting 10/19/2013 Psychiatric No anxiety 1 12/20/2012 Psychiatric No depression 10/19/2013 Dermatologic No rash 01/2013 Dermatologic No scar 01/2013 Musculoskeletal No stiffness 10/19/2013 Musculoskeletal No swelling 10/19/2013 Musculoskeletal No muscle weakness 10/19/2013 Musculoskeletal No myalgias 10/19/2013 Musculoskeletal back pain 10/19/2013 Constitutional No recent illness 05/25/2013 Constitutional No anorexia 05/25/2013 Constitutional No night sweats 05/25/2013 Constitutional No chills 05/25/2013 Constitutional No diaphoresis 05/25/2013 Constitutional No fatigue 05/25/2013 Constitutional No fever 05/25/2013 Eyes No eye discharge Eyes No eye erythema 07/2013 Ears/Nose/Throat/Neck dizziness 05/25/2013 Ears/Nose/Throat/Neck No nasal discharge 05/25/2013 Ears/Nose/Throat/Neck No sore throat 05/25/2013 Ears/Nose/Throat/Neck No sinus congestion 05/25/2013 Cardiovascular No chest pain/pressure 05/25/2013 Cardiovascular No dyspnea 05/25/2013 Respiratory No chest congestion 05/25/2013 Respiratory No cough 07/2013 Gastrointestinal No abdominal pain 05/25/2013 Gastrointestinal constipation 05/25/2013 Gastrointestinal No diarrhea 05/25/2013 Gastrointestinal No nausea 05/25/2013 Gastrointestinal No vomiting 05/25/2013 Psychiatric No anxiety 0 05/25/2013 Psychiatric No depression 05/25/2013 Constitutional No recent illness 02/18/2013 Constitutional No anorexia 02/18/2013 Constitutional No night sweats 02/18/2013 Constitutional No chills 02/18/2013 Constitutional No diaphoresis 02/18/2013 Constitutional No fatigue 02/18/2013 Constitutional No fever 02/18/2013 Eyes No eye discharge Eyes No eye erythema 02/2013 Ears/Nose/Throat/Neck dizziness 02/18/2013 Ears/Nose/Throat/Neck No nasal discharge 02/18/2013 Ears/Nose/Throat/Neck No sore throat 02/18/2013 Ears/Nose/Throat/Neck No sinus congestion 02/18/2013 Cardiovascular No chest pain/pressure 02/18/2013 Cardiovascular No dyspnea 02/18/2013 Respiratory No chest congestion 02/18/2013 Respiratory No cough 02/2013 Gastrointestinal No abdominal pain 02/18/2013 Gastrointestinal constipation 02/18/2013 Gastrointestinal No diarrhea 02/18/2013 Gastrointestinal No nausea 02/18/2013 Gastrointestinal No vomiting 02/18/2013 Psychiatric No anxiety 0 02/18/2013 Psychiatric No depression 02/18/2013 Constitutional No recent illness 10/01/2012 Constitutional No anorexia 10/01/2012 Constitutional No night sweats 10/01/2012 Constitutional No chills 10/01/2012 Constitutional No diaphoresis 10/01/2012 Constitutional No fatigue 10/01/2012 Constitutional No fever 10/01/2012 Eyes No eye discharge Eyes No eye erythema Ears/Nose/Throat/Neck dizziness 10/01/2012 Ears/Nose/Throat/Neck No nasal discharge 10/01/2012 Ears/Nose/Throat/Neck No sinus congestion 10/01/2012 Ears/Nose/Throat/Neck No sore throat 10/01/2012 Cardiovascular No chest pain/pressure 10/01/2012 Cardiovascular No dyspnea 10/01/2012 Respiratory No chest congestion 10/01/2012 Respiratory No cough Gastrointestinal No abdominal pain 10/01/2012 Gastrointestinal constipation 10/01/2012 Gastrointestinal No diarrhea 10/01/2012 Gastrointestinal No nausea 10/01/2012 Gastrointestinal No vomiting 10/01/2012 Psychiatric No anxiety 1 12/01/2011 Psychiatric No depression 10/01/2012 Constitutional No chills 05/18/2012 Constitutional No anorexia 05/18/2012 Constitutional No diaphoresis 05/18/2012 Constitutional No fatigue 05/18/2012 Constitutional No fever 05/18/2012 Constitutional No night sweats 05/18/2012 Constitutional No recent illness 05/18/2012 Eyes No eye discharge Eyes No eye erythema 12/2011 Ears/Nose/Throat/Neck dizziness 05/18/2012 Ears/Nose/Throat/Neck No nasal discharge 05/18/2012 Ears/Nose/Throat/Neck No sinus congestion 05/18/2012 Ears/Nose/Throat/Neck No sore throat 05/18/2012 Cardiovascular No chest pain/pressure 05/18/2012 Cardiovascular No dyspnea 05/18/2012 Respiratory No chest congestion 05/18/2012 Respiratory No cough 12/2011 Gastrointestinal No abdominal pain 05/18/2012 Gastrointestinal constipation 05/18/2012 Gastrointestinal No diarrhea 05/18/2012 Gastrointestinal No nausea 05/18/2012 Gastrointestinal No vomiting 05/18/2012 Genitourinary/Nephrology urinary inc ontinence 05/18/2012 Genitourinary/Nephrology urinary urgency 05/18/2012 Genitourinary/Nephrology urinary frequency 05/18/2012 Psychiatric No anxiety 0 05/18/2012 Psychiatric No depression 05/18/2012 Constitutional No recent illness 02/11/2012 Constitutional No chills 02/11/2012 Constitutional fatigue 0 02/11/2012 Constitutional No fever 02/11/2012 Eyes No vision change Ears/Nose/Throat/Neck No dizziness 02/11/2012 Ears/Nose/Throat/Neck No headache 02/11/2012 Respiratory No chest congestion 02/11/2012 Respiratory No chest tightness 02/11/2012 Respiratory No cough Gastrointestinal No abdominal pain 02/11/2012 Gastrointestinal No constipation 02/11/2012 Gastrointestinal No diarrhea 02/11/2012 Genitourinary/Nephrology urinary urgency 02/11/2012 Genitourinary/Nephrology urinary inc ontinence 02/11/2012 Musculoskeletal No stiffness 02/11/2012 Musculoskeletal No arthralgia(s) 02/11/2012 Neurologic No ataxia Neurologic No dizziness 02/11/2012 Neurologic No headache 0 02/11/2012 Psychiatric anxiety 01/16 Psychiatric No depression 02/11/2012 Gastrointestinal gas and bloating 02/11/2012 Gastrointestinal hematochezia 02/11/2012 Constitutional No recent illness 01/14/2012 Constitutional No chills 01/14/2012 Constitutional fatigue 0 01/14/2012 Constitutional No fever 01/14/2012 Eyes No vision change Ears/Nose/Throat/Neck No dizziness 01/14/2012 Ears/Nose/Throat/Neck No headache 01/14/2012 Psychiatric anxiety 12/19 Psychiatric No depression 01/14/2012 Neurologic No ataxia Neurologic No dizziness 01/14/2012 Neurologic No headache 0 01/14/2012 Musculoskeletal No stiffness 01/14/2012 Musculoskeletal No arthralgia(s) 01/14/2012 Gastrointestinal No abdominal pain 01/14/2012 Gastrointestinal No constipation 01/14/2012 Gastrointestinal No diarrhea 01/14/2012 Genitourinary/Nephrology urinary inc ontinence 01/14/2012 Genitourinary/Nephrology urinary urgency 01/14/2012 Respiratory No cough Respiratory No chest congestion 01/14/2012 Respiratory No chest tightness 01/14/2012 Physical Exam Exam Name System Name It em Name Status Result Effective Dates Notes Full Exam - General 1994 Constitutional general appearance Overall: well developed 06/30/2019 None Full Exam - General 1994 Constitutional general appearance Overall: in no acute distress 06/30/2019 None Full Exam - General 1994 Constitutional general appearance Overall: well nourished 06/30/2019 None Full Exam - General 1994 Eyes pupils and irises Overall: pupils equal, round, reactive to light and accomodation 06/30/2019 None Full Exam - General 1994 Ears/Nose/Throat oral cavity/pharynx/larynx Overall: oral mucosa clear 06/30/2019 None Full Exam - General 1994 Ears/Nose/Throat oral cavity/pharynx/larynx Overall: oropharyngeal mucosa clear 06/30/2019 None Full Exam - General 1994 Ears/Nose/Throat oral cavity/pharynx/larynx Overall: no masses 06/30/2019 None Full Exam - General 1994 Respiratory auscultation Overall: breath sounds clear bilaterally 06/30/2019 None Full Exam - General 1994 Respiratory respiratory effort/rhythm Overall: no retractions 06/30/2019 None Full Exam - General 1994 Respiratory respiratory effort/rhythm Overall: normal rate 06/30/2019 None Full Exam - General 1994 Cardiovascular inspection of carotid pulses Overall: strong, bilaterally equal, no bruits 06/30/2019 None Full Exam - General 1994 Cardiovascular auscultation of heart Overall: regular rate 06/30/2019 None Full Exam - General 1994 Cardiovascular auscultation of heart Overall: normal heart sounds 06/30/2019 None Full Exam - General 1994 Cardiovascular auscultation of heart Overall: no murmurs 06/30/2019 None Full Exam - General 1994 Abdomen abdominal exam Overall: no tenderness 06/30/2019 None Full Exam - General 1994 Abdomen abdominal exam Overall: normal bowel sounds 06/30/2019 None Full Exam - General 1994 Musculoskeletal spine, ribs and pelvis Overall: good posture 06/30/2019 None Full Exam - General 1994 Musculoskeletal gait and station Overall: normal gait 06/30/2019 None Full Exam - General 1994 Musculoskeletal gait and station Overall: normal station 06/30/2019 None Full Exam - General 1994 Musculoskeletal head and neck Overall: head atraumatic 06/30/2019 None Full Exam - General 1994 Musculoskeletal head and neck Overall: cervical spine benign 06/30/2019 None Full Exam - General 1994 Neurologic cranial nerves Overall: crainial nerves 2 - 12 grossly intact 06/30/2019 None Full Exam - General 1994 Psychiatric orientation/consciousness Overall: oriented to person, place and time 06/30/2019 None Full Exam - General 1994 Psychiatric mood and affect Overall: normal mood and affect 06/30/2019 None Full Exam - General 1994 Psychiatric mood and affect Mood: happy 06/30/2019 None Full Exam - General 1994 Constitutional general appearance Overall: well nourished 06/24/2019 None Full Exam - General 1994 Constitutional general appearance Overall: well developed 06/24/2019 None Full Exam - General 1994 Constitutional general appearance Overall: in no acute distress 06/24/2019 None Full Exam - General 1995 Eyes pupils and irises Overall: pupils equal, round, reactive to light and accomodation 06/24/2019 None Full Exam - General 1995 Ears/Nose/Throat oral cavity/pharynx/larynx Overall: oropharyngeal mucosa clear 06/24/2019 None Full Exam - General 1995 Ears/Nose/Throat oral cavity/pharynx/larynx Overall: no masses 06/24/2019 None Full Exam - General 1995 Ears/Nose/Throat oral cavity/pharynx/larynx Overall: oral mucosa clear 06/24/2019 None Full Exam - General 1994 Respiratory auscultation Overall: breath sounds clear bilaterally 06/24/2019 None Full Exam - General 1994 Respiratory respiratory effort/rhythm Overall: normal rate 06/24/2019 None Full Exam - General 1994 Respiratory respiratory effort/rhythm Overall: no retractions 06/24/2019 None Full Exam - General 1994 Cardiovascular auscultation of heart Overall: regular rate 06/24/2019 None Full Exam - General 1994 Cardiovascular auscultation of heart Overall: normal heart sounds 06/24/2019 None Full Exam - General 1994 Cardiovascular auscultation of heart Overall: no murmurs 06/24/2019 None Full Exam - General 1994 Integument inspection of skin Location: face 06/24/2019 swelling below eyes, roug h skin over forehead, cheeks, chin, right lower neck Full Exam - General 1994 Psychiatric orientation/consciousness Overall: oriented to person, place and time 06/24/2019 None Full Exam - General 1994 Psychiatric mood and affect Mood: happy 06/24/2019 None Full Exam - General 1994 Psychiatric mood and affect Overall: normal mood and affect 06/24/2019 None Full Exam - General 1994 Constitutional general appearance Overall: well developed 04/21/2019 None Full Exam - General 1994 Constitutional general appearance Overall: in no acute distress 04/21/2019 None Full Exam - General 1994 Constitutional general appearance Overall: well nourished 04/21/2019 None Full Exam - General 1994 Eyes pupils and irises Overall: pupils equal, round, reactive to light and accomodation 04/21/2019 None Full Exam - General 1994 Ears/Nose/Throat otoscopic exam Overall: external auditory canals clear 04/21/2019 None Full Exam - General 1994 Ears/Nose/Throat otoscopic exam Overall: tympanic membranes clear 04/21/2019 None Full Exam - General 1995 Ears/Nose/Throat oral cavity/pharynx/larynx Overall: oral mucosa clear 04/21/2019 None Full Exam - General 1995 Ears/Nose/Throat oral cavity/pharynx/larynx Overall: oropharyngeal mucosa clear 04/21/2019 None Full Exam - General 1995 Ears/Nose/Throat oral cavity/pharynx/larynx Overall: no masses 04/21/2019 None Full Exam - General 1994 Respiratory auscultation Overall: breath sounds clear bilaterally 04/21/2019 None Full Exam - General 1994 Respiratory respiratory effort/rhythm Overall: no retractions 04/21/2019 None Full Exam - General 1994 Respiratory respiratory effort/rhythm Overall: normal rate 04/21/2019 None Full Exam - General 1994 Cardiovascular inspection of carotid pulses Overall: strong, bilaterally equal, no bruits 04/21/2019 None Full Exam - General 1994 Cardiovascular auscultation of heart Overall: regular rate 04/21/2019 None Full Exam - General 1994 Cardiovascular auscultation of heart Overall: normal heart sounds 04/21/2019 None Full Exam - General 1994 Cardiovascular auscultation of heart Overall: no murmurs 04/21/2019 None Full Exam - General 1994 Abdomen abdominal exam Overall: no tenderness 04/21/2019 None Full Exam - General 1994 Abdomen abdominal exam Overall: normal bowel sounds 04/21/2019 None Full Exam - General 1994 Musculoskeletal spine, ribs and pelvis Overall: good posture 04/21/2019 None Full Exam - General 1994 Musculoskeletal gait and station Overall: normal gait 04/21/2019 None Full Exam - General 1994 Musculoskeletal gait and station Overall: normal station 04/21/2019 None Full Exam - General 1994 Musculoskeletal head and neck Overall: head atraumatic 04/21/2019 None Full Exam - General 1994 Musculoskeletal head and neck Overall: cervical spine benign 04/21/2019 None Full Exam - General 1994 Neurologic cranial nerves Overall: crainial nerves 2 - 12 grossly intact 04/21/2019 None Full Exam - General 1994 Psychiatric orientation/consciousness Overall: oriented to person, place and time 04/21/2019 None Full Exam - General 1994 Psychiatric mood and affect Overall: normal mood and affect 04/21/2019 None Full Exam - General 1994 Psychiatric mood and affect Mood: happy 04/21/2019 None Full Exam - General 1994 Integument inspection of skin Dermatitis: erythema 04/21/2019 on back of neck - has bee n present for a long time per pt report - this area is blanchable, non indurated Full Exam - ENT Constitutional general appearance Overall: well nourished 02/17/2019 None Full Exam - ENT Constitutional general appearance Overall: well developed 02/17/2019 None Full Exam - ENT Constitutional general appearance Overall: in no acute distress 02/17/2019 None Full Exam - ENT Ears/Nose/Throat otoscopic exam Overall: external auditory canals normal 02/17/2019 None Full Exam - ENT Ears/Nose/Throat otoscopic exam Left tympanic membrane: air-fluid le martin 02/17/2019 None Full Exam - ENT Ears/Nose/Throat otoscopic exam Right tympanic membrane: air-fluid level 02/17/2019 None Full Exam - ENT Ears/Nose/Throat lips/teeth/gingiva Overall: benign lips 02/17/2019 None Full Exam - ENT Ears/Nose/Throat oropharynx Overall: oral mucosa clear 02/17/2019 None Full Exam - ENT Ears/Nose/Throat oropharynx Posterior Pharynx: clear post nasal drainage 02/17/2019 None Full Exam - ENT Ears/Nose/Throat oropharynx Posterior Pharynx: erythema 02/17/2019 None Full Exam - ENT Respiratory inspection Overall: no retractions 02/17/2019 None Full Exam - ENT Respiratory inspection Overall: normal rate 01/2019 None Full Exam - ENT Respiratory auscultation Overall: breath sounds clear bilater ally 02/17/2019 None Full Exam - ENT Cardiovascular auscultation of heart Rate: normal rate 02/17/2019 None Full Exam - ENT Cardiovascular auscultation of heart Rhythm: regular rhythm 02/17/2019 None Full Exam - ENT Lymphatic palpation of lymph nodes Overall: anterior cervical chain benign 02/17/2019 None Full Exam - ENT Lymphatic palpation of lymph nodes Overall: posterior cervical chain benign 02/17/2019 None Full Exam - ENT Neurologic mood and affect Overall: normal mood 02/17/2019 None Full Exam - ENT Neurologic mood and affect Overall: normal affect 02/17/2019 None Full Exam - ENT Neurologic orientation Overall: oriented to person, place a nd time 02/17/2019 None Full Exam - General 1994 Constitutional general appearance Overall: well developed 08/27/2018 None Full Exam - General 1994 Constitutional general appearance Overall: in no acute distress 08/27/2018 None Full Exam - General 1994 Constitutional general appearance Overall: well nourished 08/27/2018 None Full Exam - General 1994 Eyes pupils and irises Overall: pupils equal, round, reactive to light and accomodation 08/27/2018 None Full Exam - General 1994 Ears/Nose/Throat otoscopic exam Overall: external auditory canals clear 08/27/2018 None Full Exam - General 1994 Ears/Nose/Throat otoscopic exam Overall: tympanic membranes clear 08/27/2018 None Full Exam - General 1994 Ears/Nose/Throat oral cavity/pharynx/larynx Overall: oral mucosa clear 08/27/2018 None Full Exam - General 1994 Ears/Nose/Throat oral cavity/pharynx/larynx Overall: oropharyngeal mucosa clear 08/27/2018 None Full Exam - General 1994 Ears/Nose/Throat oral cavity/pharynx/larynx Overall: no masses 08/27/2018 None Full Exam - General 1994 Respiratory auscultation Overall: breath sounds clear bilaterally 08/27/2018 None Full Exam - General 1994 Respiratory respiratory effort/rhythm Overall: no retractions 08/27/2018 None Full Exam - General 1994 Respiratory respiratory effort/rhythm Overall: normal rate 08/27/2018 None Full Exam - General 1994 Cardiovascular inspection of carotid pulses Overall: strong, bilaterally equal, no bruits 08/27/2018 None Full Exam - General 1994 Cardiovascular auscultation of heart Overall: regular rate 08/27/2018 None Full Exam - General 1994 Cardiovascular auscultation of heart Overall: normal heart sounds 08/27/2018 None Full Exam - General 1994 Cardiovascular auscultation of heart Overall: no murmurs 08/27/2018 None Full Exam - General 1994 Musculoskeletal upper extremity Palpation - shoulder: tenderness @ bicipital groove 08/27/2018 None Full Exam - General 1994 Musculoskeletal spine, ribs and pelvis Overall: good posture 08/27/2018 None Full Exam - General 1994 Musculoskeletal gait and station Overall: normal gait 08/27/2018 None Full Exam - General 1994 Musculoskeletal gait and station Overall: normal station 08/27/2018 None Full Exam - General 1994 Musculoskeletal head and neck Overall: head atraumatic 08/27/2018 None Full Exam - General 1994 Musculoskeletal head and neck Overall: cervical spine benign 08/27/2018 None Full Exam - General 1994 Neurologic cranial nerves Overall: crainial nerves 2 - 12 grossly intact 08/27/2018 None Full Exam - General 1994 Psychiatric orientation/consciousness Overall: oriented to person, place and time 08/27/2018 None Full Exam - General 1994 Psychiatric mood and affect Mood: flat 08/27/2018 None Full Exam - General 1994 Neurologic sensation Touch: (specify location of deficit): vibration 7 seconds medial great toe, 6 seconds on end of great toes, left ankle 6 seconds medially and 9 seconds laterally, right ankle medially 4 seconds and laterally 4 seconds, at patella on right 4 seconds and left could not feel 08/27/2018 None Full Exam - General 1994 Neurologic sensation Touch: (specify location of deficit): light touch intact on plantar surface o f foot and on left intact on plantar surface except for great toe 08/27/2018 None Full Exam - General 1994 Neurologic deep tendon reflexes Overall: deep tendon reflexes intact 08/27/2018 None Full Exam - General 1994 Constitutional general appearance Overall: well developed 02/24/2018 None Full Exam - General 1994 Constitutional general appearance Overall: in no acute distress 02/24/2018 None Full Exam - General 1994 Constitutional general appearance Overall: well nourished 02/24/2018 None Full Exam - General 1994 Eyes pupils and irises Overall: pupils equal, round, reactive to light and accomodation 02/24/2018 None Full Exam - General 1994 Ears/Nose/Throat otoscopic exam Overall: external auditory canals clear 02/24/2018 None Full Exam - General 1994 Ears/Nose/Throat otoscopic exam Overall: tympanic membranes clear 02/24/2018 None Full Exam - General 1994 Ears/Nose/Throat oral cavity/pharynx/larynx Overall: oral mucosa clear 02/24/2018 None Full Exam - General 1994 Ears/Nose/Throat oral cavity/pharynx/larynx Overall: oropharyngeal mucosa clear 02/24/2018 None Full Exam - General 1994 Ears/Nose/Throat oral cavity/pharynx/larynx Overall: no masses 02/24/2018 None Full Exam - General 1994 Respiratory auscultation Overall: breath sounds clear bilaterally 02/24/2018 None Full Exam - General 1994 Respiratory respiratory effort/rhythm Overall: no retractions 02/24/2018 None Full Exam - General 1994 Respiratory respiratory effort/rhythm Overall: normal rate 02/24/2018 None Full Exam - General 1994 Cardiovascular inspection of carotid pulses Overall: strong, bilaterally equal, no bruits 02/24/2018 None Full Exam - General 1994 Cardiovascular auscultation of heart Overall: regular rate 02/24/2018 None Full Exam - General 1994 Cardiovascular auscultation of heart Overall: normal heart sounds 02/24/2018 None Full Exam - General 1994 Cardiovascular auscultation of heart Overall: no murmurs 02/24/2018 None Full Exam - General 1994 Abdomen abdominal exam Overall: no tenderness 02/24/2018 None Full Exam - General 1994 Abdomen abdominal exam Overall: normal bowel sounds 02/24/2018 None Full Exam - General 1994 Musculoskeletal upper extremity Palpation - shoulder: tenderness @ bicipital groove 02/24/2018 None Full Exam - General 1994 Musculoskeletal spine, ribs and pelvis Overall: good posture 02/24/2018 None Full Exam - General 1994 Musculoskeletal gait and station Overall: normal gait 02/24/2018 None Full Exam - General 1994 Musculoskeletal gait and station Overall: normal station 02/24/2018 None Full Exam - General 1994 Musculoskeletal head and neck Overall: head atraumatic 02/24/2018 None Full Exam - General 1994 Musculoskeletal head and neck Overall: cervical spine benign 02/24/2018 None Full Exam - General 1994 Neurologic cranial nerves Overall: crainial nerves 2 - 12 grossly intact 02/24/2018 None Full Exam - General 1994 Psychiatric orientation/consciousness Overall: oriented to person, place and time 02/24/2018 None Full Exam - General 1994 Psychiatric mood and affect Mood: flat 02/24/2018 None Full Exam - General 1994 Constitutional general appearance Overall: well developed 11/03/2017 None Full Exam - General 1994 Constitutional general appearance Overall: in no acute distress 11/03/2017 None Full Exam - General 1994 Constitutional general appearance Overall: well nourished 11/03/2017 None Full Exam - General 1994 Eyes pupils and irises Overall: pupils equal, round, reactive to light and accomodation 11/03/2017 None Full Exam - General 1994 Ears/Nose/Throat otoscopic exam Overall: external auditory canals clear 11/03/2017 None Full Exam - General 1994 Ears/Nose/Throat otoscopic exam Overall: tympanic membranes clear 11/03/2017 None Full Exam - General 1994 Ears/Nose/Throat oral cavity/pharynx/larynx Overall: oral mucosa clear 11/03/2017 None Full Exam - General 1994 Ears/Nose/Throat oral cavity/pharynx/larynx Overall: oropharyngeal mucosa clear 11/03/2017 None Full Exam - General 1994 Ears/Nose/Throat oral cavity/pharynx/larynx Overall: no masses 11/03/2017 None Full Exam - General 1994 Respiratory auscultation Overall: breath sounds clear bilaterally 11/03/2017 None Full Exam - General 1994 Respiratory respiratory effort/rhythm Overall: no retractions 11/03/2017 None Full Exam - General 1994 Respiratory respiratory effort/rhythm Overall: normal rate 11/03/2017 None Full Exam - General 1994 Cardiovascular inspection of carotid pulses Overall: strong, bilaterally equal, no bruits 11/03/2017 None Full Exam - General 1994 Cardiovascular auscultation of heart Overall: regular rate 11/03/2017 None Full Exam - General 1994 Cardiovascular auscultation of heart Overall: normal heart sounds 11/03/2017 None Full Exam - General 1994 Cardiovascular auscultation of heart Overall: no murmurs 11/03/2017 None Full Exam - General 1994 Abdomen abdominal exam Overall: no tenderness 11/03/2017 None Full Exam - General 1994 Abdomen abdominal exam Overall: normal bowel sounds 11/03/2017 None Full Exam - General 1994 Musculoskeletal spine, ribs and pelvis Overall: good posture 11/03/2017 None Full Exam - General 1994 Musculoskeletal gait and station Overall: normal gait 11/03/2017 None Full Exam - General 1994 Musculoskeletal gait and station Overall: normal station 11/03/2017 None Full Exam - General 1994 Musculoskeletal head and neck Overall: head atraumatic 11/03/2017 None Full Exam - General 1994 Musculoskeletal head and neck Overall: cervical spine benign 11/03/2017 None Full Exam - General 1994 Neurologic cranial nerves Overall: crainial nerves 2 - 12 grossly intact 11/03/2017 None Full Exam - General 1994 Psychiatric orientation/consciousness Overall: oriented to person, place and time 11/03/2017 None Full Exam - General 1994 Psychiatric mood and affect Mood: flat 11/03/2017 None Full Exam - General 1994 Musculoskeletal upper extremity Palpation - shoulder: tenderness @ bicipital groove 11/03/2017 None Full Exam - General 1994 Constitutional general appearance Overall: well developed 08/08/2017 None Full Exam - General 1994 Constitutional general appearance Overall: in no acute distress 08/08/2017 None Full Exam - General 1994 Constitutional general appearance Overall: well nourished 08/08/2017 None Full Exam - General 1994 Eyes pupils and irises Overall: pupils equal, round, reactive to light and accomodation 08/08/2017 None Full Exam - General 1994 Ears/Nose/Throat otoscopic exam Overall: external auditory canals clear 08/08/2017 None Full Exam - General 1994 Ears/Nose/Throat otoscopic exam Overall: tympanic membranes clear 08/08/2017 None Full Exam - General 1994 Ears/Nose/Throat oral cavity/pharynx/larynx Overall: oral mucosa clear 08/08/2017 None Full Exam - General 1994 Ears/Nose/Throat oral cavity/pharynx/larynx Overall: oropharyngeal mucosa clear 08/08/2017 None Full Exam - General 1994 Ears/Nose/Throat oral cavity/pharynx/larynx Overall: no masses 08/08/2017 None Full Exam - General 1994 Respiratory auscultation Overall: breath sounds clear bilaterally 08/08/2017 None Full Exam - General 1994 Respiratory respiratory effort/rhythm Overall: no retractions 08/08/2017 None Full Exam - General 1994 Respiratory respiratory effort/rhythm Overall: normal rate 08/08/2017 None Full Exam - General 1994 Cardiovascular inspection of carotid pulses Overall: strong, bilaterally equal, no bruits 08/08/2017 None Full Exam - General 1994 Cardiovascular auscultation of heart Overall: regular rate 08/08/2017 None Full Exam - General 1994 Cardiovascular auscultation of heart Overall: normal heart sounds 08/08/2017 None Full Exam - General 1994 Cardiovascular auscultation of heart Overall: no murmurs 08/08/2017 None Full Exam - General 1994 Abdomen abdominal exam Overall: no tenderness 08/08/2017 None Full Exam - General 1994 Abdomen abdominal exam Overall: normal bowel sounds 08/08/2017 None Full Exam - General 1994 Musculoskeletal spine, ribs and pelvis Overall: good posture 08/08/2017 None Full Exam - General 1994 Musculoskeletal gait and station Overall: normal gait 08/08/2017 None Full Exam - General 1994 Musculoskeletal gait and station Overall: normal station 08/08/2017 None Full Exam - General 1994 Musculoskeletal head and neck Overall: head atraumatic 08/08/2017 None Full Exam - General 1994 Musculoskeletal head and neck Overall: cervical spine benign 08/08/2017 None Full Exam - General 1994 Neurologic cranial nerves Overall: crainial nerves 2 - 12 grossly intact 08/08/2017 None Full Exam - General 1994 Psychiatric orientation/consciousness Overall: oriented to person, place and time 08/08/2017 None Full Exam - General 1994 Psychiatric mood and affect Mood: flat 08/08/2017 None Full Exam - General 1994 Constitutional general appearance Overall: well developed 07/10/2017 None Full Exam - General 1994 Constitutional general appearance Overall: in no acute distress 07/10/2017 None Full Exam - General 1994 Constitutional general appearance Overall: well nourished 07/10/2017 None Full Exam - General 1994 Eyes pupils and irises Overall: pupils equal, round, reactive to light and accomodation 07/10/2017 None Full Exam - General 1994 Ears/Nose/Throat otoscopic exam Overall: external auditory canals clear 07/10/2017 None Full Exam - General 1994 Ears/Nose/Throat otoscopic exam Overall: tympanic membranes clear 07/10/2017 None Full Exam - General 1994 Ears/Nose/Throat oral cavity/pharynx/larynx Overall: oral mucosa clear 07/10/2017 None Full Exam - General 1994 Ears/Nose/Throat oral cavity/pharynx/larynx Overall: oropharyngeal mucosa clear 07/10/2017 None Full Exam - General 1994 Ears/Nose/Throat oral cavity/pharynx/larynx Overall: no masses 07/10/2017 None Full Exam - General 1994 Respiratory auscultation Overall: breath sounds clear bilaterally 07/10/2017 None Full Exam - General 1994 Respiratory respiratory effort/rhythm Overall: no retractions 07/10/2017 None Full Exam - General 1994 Respiratory respiratory effort/rhythm Overall: normal rate 07/10/2017 None Full Exam - General 1994 Cardiovascular inspection of carotid pulses Overall: strong, bilaterally equal, no bruits 07/10/2017 None Full Exam - General 1994 Cardiovascular auscultation of heart Overall: regular rate 07/10/2017 None Full Exam - General 1994 Cardiovascular auscultation of heart Overall: normal heart sounds 07/10/2017 None Full Exam - General 1994 Cardiovascular auscultation of heart Overall: no murmurs 07/10/2017 None Full Exam - General 1994 Abdomen abdominal exam Overall: no tenderness 07/10/2017 None Full Exam - General 1994 Abdomen abdominal exam Overall: normal bowel sounds 07/10/2017 None Full Exam - General 1994 Musculoskeletal spine, ribs and pelvis Overall: good posture 07/10/2017 None Full Exam - General 1994 Musculoskeletal gait and station Overall: normal gait 07/10/2017 None Full Exam - General 1994 Musculoskeletal gait and station Overall: normal station 07/10/2017 None Full Exam - General 1994 Musculoskeletal head and neck Overall: head atraumatic 07/10/2017 None Full Exam - General 1994 Musculoskeletal head and neck Overall: cervical spine benign 07/10/2017 None Full Exam - General 1994 Neurologic cranial nerves Overall: crainial nerves 2 - 12 grossly intact 07/10/2017 None Full Exam - General 1994 Psychiatric orientation/consciousness Overall: oriented to person, place and time 07/10/2017 None Full Exam - General 1994 Psychiatric mood and affect Overall: normal mood and affect 07/10/2017 None Full Exam - General 1994 Psychiatric mood and affect Mood: happy 07/10/2017 None Full Exam - General 1994 Constitutional general appearance Overall: well developed 03/06/2017 None Full Exam - General 1994 Constitutional general appearance Overall: in no acute distress 03/06/2017 None Full Exam - General 1994 Constitutional general appearance Overall: well nourished 03/06/2017 None Full Exam - General 1994 Eyes pupils and irises Overall: pupils equal, round, reactive to light and accomodation 03/06/2017 None Full Exam - General 1994 Ears/Nose/Throat otoscopic exam Overall: external auditory canals clear 03/06/2017 None Full Exam - General 1994 Ears/Nose/Throat otoscopic exam Overall: tympanic membranes clear 03/06/2017 None Full Exam - General 1994 Ears/Nose/Throat oral cavity/pharynx/larynx Overall: oral mucosa clear 03/06/2017 None Full Exam - General 1994 Ears/Nose/Throat oral cavity/pharynx/larynx Overall: oropharyngeal mucosa clear 03/06/2017 None Full Exam - General 1994 Ears/Nose/Throat oral cavity/pharynx/larynx Overall: no masses 03/06/2017 None Full Exam - General 1994 Respiratory auscultation Overall: breath sounds clear bilaterally 03/06/2017 None Full Exam - General 1994 Respiratory respiratory effort/rhythm Overall: no retractions 03/06/2017 None Full Exam - General 1994 Respiratory respiratory effort/rhythm Overall: normal rate 03/06/2017 None Full Exam - General 1994 Cardiovascular inspection of carotid pulses Overall: strong, bilaterally equal, no bruits 03/06/2017 None Full Exam - General 1994 Cardiovascular auscultation of heart Overall: regular rate 03/06/2017 None Full Exam - General 1994 Cardiovascular auscultation of heart Overall: normal heart sounds 03/06/2017 None Full Exam - General 1994 Cardiovascular auscultation of heart Overall: no murmurs 03/06/2017 None Full Exam - General 1994 Abdomen abdominal exam Overall: no tenderness 03/06/2017 None Full Exam - General 1994 Abdomen abdominal exam Overall: normal bowel sounds 03/06/2017 None Full Exam - General 1994 Musculoskeletal spine, ribs and pelvis Overall: good posture 03/06/2017 None Full Exam - General 1994 Musculoskeletal gait and station Overall: normal gait 03/06/2017 None Full Exam - General 1994 Musculoskeletal gait and station Overall: normal station 03/06/2017 None Full Exam - General 1994 Musculoskeletal head and neck Overall: head atraumatic 03/06/2017 None Full Exam - General 1994 Musculoskeletal head and neck Overall: cervical spine benign 03/06/2017 None Full Exam - General 1994 Neurologic sensation Touch: (specify location of deficit): vibration no vibration sense on feet bi laterally until at ankles - the pt had sensation but decreased amount of time pt only had about 4 seconds 03/06/2017 None Full Exam - General 1994 Neurologic cranial nerves Overall: crainial nerves 2 - 12 grossly intact 03/06/2017 None Full Exam - General 1994 Psychiatric orientation/consciousness Overall: oriented to person, place and time 03/06/2017 None Full Exam - General 1994 Psychiatric mood and affect Overall: normal mood and affect 03/06/2017 None Full Exam - General 1994 Psychiatric mood and affect Mood: happy 03/06/2017 None Full Exam - Dermatology Constitutional general appearance Overall: well nourished 03/04/2017 None Full Exam - Dermatology Constitutional general appearance Overall: well developed 03/04/2017 None Full Exam - Dermatology Constitutional general appearance Overall: in no acute distress 03/04/2017 None Full Exam - Dermatology Constitutional general appearance Overall: of normal body habitus 03/04/2017 None Full Exam - Dermatology Constitutional general appearance Overall: well groomed 03/04/2017 None Full Exam - Dermatology Psychiatric orientation Overall: oriented to person, place and time 03/04/2017 None Full Exam - Dermatology Ears/Nose/Throat oropharynx Overall: clear oral mucosa 03/04/2017 None Full Exam - Dermatology Integument insp & palp - head/face Location: on the left cheek 03/04/2017 None Full Exam - Dermatology Integument insp & palp - head/face Location: on the right cheek 03/04/2017 None Full Exam - Dermatology Integument insp & palp - neck Location: on the anterior neck 03/04/2017 very small area of erythe ma to left and righ cheeks and anterior neck-culture obtained Full Exam - General 1994 Constitutional general appearance Overall: well developed 11/04/2016 None Full Exam - General 1994 Constitutional general appearance Overall: in no acute distress 11/04/2016 None Full Exam - General 1994 Constitutional general appearance Overall: well nourished 11/04/2016 None Full Exam - General 1994 Eyes conjunctiva/eyelids Overall: conjunctiva clear 11/04/2016 None Full Exam - General 1994 Eyes conjunctiva/eyelids Overall: eyelids normal 11/04/2016 None Full Exam - General 1994 Eyes pupils and irises Overall: pupils equal, round, reactive to light and accomodation 11/04/2016 None Full Exam - General 1994 Ears/Nose/Throat otoscopic exam Overall: external auditory canals clear 11/04/2016 None Full Exam - General 1994 Ears/Nose/Throat otoscopic exam Overall: tympanic membranes clear 11/04/2016 None Full Exam - General 1994 Ears/Nose/Throat lips/teeth/gingiva Overall: benign lips 11/04/2016 None Full Exam - General 1994 Ears/Nose/Throat oral cavity/pharynx/larynx Overall: oral mucosa clear 11/04/2016 None Full Exam - General 1994 Respiratory auscultation Overall: breath sounds clear bilaterally 11/04/2016 None Full Exam - General 1994 Respiratory respiratory effort/rhythm Overall: no retractions 11/04/2016 None Full Exam - General 1994 Respiratory respiratory effort/rhythm Overall: normal rate 11/04/2016 None Full Exam - General 1994 Cardiovascular extremities Overall: no clubbing 11/04/2016 None Full Exam - General 1994 Cardiovascular auscultation of heart Overall: regular rate 11/04/2016 None Full Exam - General 1994 Cardiovascular auscultation of heart Overall: normal heart sounds 11/04/2016 None Full Exam - General 1994 Abdomen abdominal exam Overall: no tenderness 11/04/2016 None Full Exam - General 1994 Abdomen abdominal exam Overall: normal bowel sounds 11/04/2016 None Full Exam - General 1994 Musculoskeletal head and neck Overall: head atraumatic 11/04/2016 None Full Exam - General 1994 Integument inspection of skin Overall: few scattered moles, no gross abnormalities 11/04/2016 None Full Exam - General 1994 Psychiatric orientation/consciousness Overall: oriented to person, place and time 11/04/2016 None Full Exam - General 1994 Psychiatric mood and affect Overall: normal mood and affect 11/04/2016 None Full Exam - General 1994 Psychiatric appearance Overall: well-groomed, good eye contact 11/04/2016 None Full Exam - General 1994 Constitutional general appearance Overall: well developed 10/23/2016 None Full Exam - General 1994 Constitutional general appearance Overall: in no acute distress 10/23/2016 None Full Exam - General 1994 Constitutional general appearance Overall: well nourished 10/23/2016 None Full Exam - General 1994 Eyes pupils and irises Overall: pupils equal, round, reactive to light and accomodation 10/23/2016 None Full Exam - General 1994 Ears/Nose/Throat otoscopic exam Overall: external auditory canals clear 10/23/2016 None Full Exam - General 1994 Ears/Nose/Throat otoscopic exam Overall: tympanic membranes clear 10/23/2016 None Full Exam - General 1994 Ears/Nose/Throat oral cavity/pharynx/larynx Overall: oral mucosa clear 10/23/2016 None Full Exam - General 1994 Ears/Nose/Throat oral cavity/pharynx/larynx Overall: oropharyngeal mucosa clear 10/23/2016 None Full Exam - General 1994 Ears/Nose/Throat oral cavity/pharynx/larynx Overall: no masses 10/23/2016 None Full Exam - General 1994 Respiratory auscultation Overall: breath sounds clear bilaterally 10/23/2016 None Full Exam - General 1994 Respiratory respiratory effort/rhythm Overall: no retractions 10/23/2016 None Full Exam - General 1994 Respiratory respiratory effort/rhythm Overall: normal rate 10/23/2016 None Full Exam - General 1994 Cardiovascular inspection of carotid pulses Overall: strong, bilaterally equal, no bruits 10/23/2016 None Full Exam - General 1994 Cardiovascular auscultation of heart Overall: regular rate 10/23/2016 None Full Exam - General 1994 Cardiovascular auscultation of heart Overall: normal heart sounds 10/23/2016 None Full Exam - General 1994 Cardiovascular auscultation of heart Overall: no murmurs 10/23/2016 None Full Exam - General 1994 Abdomen abdominal exam Overall: no tenderness 10/23/2016 None Full Exam - General 1994 Abdomen abdominal exam Overall: normal bowel sounds 10/23/2016 None Full Exam - General 1994 Musculoskeletal spine, ribs and pelvis Overall: good posture 10/23/2016 None Full Exam - General 1994 Musculoskeletal gait and station Overall: normal gait 10/23/2016 None Full Exam - General 1994 Musculoskeletal gait and station Overall: normal station 10/23/2016 None Full Exam - General 1994 Musculoskeletal head and neck Overall: head atraumatic 10/23/2016 None Full Exam - General 1994 Musculoskeletal head and neck Overall: cervical spine benign 10/23/2016 None Full Exam - General 1994 Neurologic sensation Touch: (specify location of deficit): vibration no vibration sense on feet bi laterally until at ankles - the pt had sensation but decreased amount of time pt only had about 4 seconds 10/23/2016 None Full Exam - General 1994 Neurologic cranial nerves Overall: crainial nerves 2 - 12 grossly intact 10/23/2016 None Full Exam - General 1994 Psychiatric orientation/consciousness Overall: oriented to person, place and time 10/23/2016 None Full Exam - General 1994 Psychiatric mood and affect Overall: normal mood and affect 10/23/2016 None Full Exam - General 1994 Psychiatric mood and affect Mood: happy 10/23/2016 None Full Exam - Orthopedics Constitutional general appearance Overall: well nourished 10/03/2016 None Full Exam - Orthopedics Constitutional general appearance Overall: well developed 10/03/2016 None Full Exam - Orthopedics Constitutional general appearance Overall: in no acute distress 10/03/2016 None Full Exam - Orthopedics Eyes conjunctiva/eyelids Overall: conjunctiva clear 10/03/2016 None Full Exam - Orthopedics Eyes conjunctiva/eyelids Overall: eyelids normal 10/03/2016 None Full Exam - Orthopedics Ears/Nose/Throat lips/teeth/gingiva Overall: benign lips 10/03/2016 None Full Exam - Orthopedics Ears/Nose/Throat oral cavity/pharynx/larynx Overall: oral mucosa clear 10/03/2016 None Full Exam - Orthopedics Respiratory respiratory effort/rhythm Overall: no retractions 10/03/2016 None Full Exam - Orthopedics Respiratory respiratory effort/rhythm Overall: normal rate 10/03/2016 None Full Exam - Orthopedics Psychiatric orientation/consciousness Overall: oriented to person, place and time 10/03/2016 None Full Exam - Orthopedics Psychiatric mood and affect Overall: normal mood and affect 10/03/2016 None Full Exam - Orthopedics Psychiatric appearance Overall: well-groomed, good eye contact 10/03/2016 None Full Exam - Orthopedics MS: spine/ri b/pelvis range of motion - S/R/P Right latera l thoracic bending: painful thoracic muscles with right late ral bending 10/03/2016 None Full Exam - Dermatology Constitutional general appearance Overall: well nourished 09/03/2016 None Full Exam - Dermatology Constitutional general appearance Overall: well developed 09/03/2016 None Full Exam - Dermatology Constitutional general appearance Overall: in no acute distress 09/03/2016 None Full Exam - Dermatology Constitutional general appearance Overall: of normal body habitus 09/03/2016 None Full Exam - Dermatology Constitutional general appearance Overall: well groomed 09/03/2016 None Full Exam - Dermatology Psychiatric orientation Overall: oriented to person, place and time 09/03/2016 None Full Exam - Dermatology Integument insp & palp - head/face Lesion: papule 09/03/2016 None Full Exam - Dermatology Integument insp & palp - head/face Distribution: localized 09/03/2016 None Full Exam - Dermatology Integument insp & palp - head/face Location: on the right cheek 09/03/2016 None Full Exam - Dermatology Integument insp & palp - head/face Color: erythematous 09/03/2016 None Full Exam - Dermatology Eyes conjunctiva/eyelids Overall: clear conjunctiva bilaterally 09/03/2016 None Full Exam - General 1994 Constitutional general appearance Overall: well developed 08/21/2016 None Full Exam - General 1994 Constitutional general appearance Overall: in no acute distress 08/21/2016 None Full Exam - General 1994 Constitutional general appearance Overall: well nourished 08/21/2016 None Full Exam - General 1994 Eyes pupils and irises Overall: pupils equal, round, reactive to light and accomodation 08/21/2016 None Full Exam - General 1994 Ears/Nose/Throat otoscopic exam Overall: external auditory canals clear 08/21/2016 None Full Exam - General 1994 Ears/Nose/Throat otoscopic exam Overall: tympanic membranes clear 08/21/2016 None Full Exam - General 1994 Ears/Nose/Throat oral cavity/pharynx/larynx Overall: oral mucosa clear 08/21/2016 None Full Exam - General 1994 Ears/Nose/Throat oral cavity/pharynx/larynx Overall: oropharyngeal mucosa clear 08/21/2016 None Full Exam - General 1994 Ears/Nose/Throat oral cavity/pharynx/larynx Overall: no masses 08/21/2016 None Full Exam - General 1994 Respiratory auscultation Overall: breath sounds clear bilaterally 08/21/2016 None Full Exam - General 1994 Respiratory respiratory effort/rhythm Overall: no retractions 08/21/2016 None Full Exam - General 1994 Respiratory respiratory effort/rhythm Overall: normal rate 08/21/2016 None Full Exam - General 1994 Cardiovascular inspection of carotid pulses Overall: strong, bilaterally equal, no bruits 08/21/2016 None Full Exam - General 1994 Cardiovascular auscultation of heart Overall: regular rate 08/21/2016 None Full Exam - General 1994 Cardiovascular auscultation of heart Overall: normal heart sounds 08/21/2016 None Full Exam - General 1994 Cardiovascular auscultation of heart Overall: no murmurs 08/21/2016 None Full Exam - General 1994 Abdomen abdominal exam Overall: no tenderness 08/21/2016 None Full Exam - General 1994 Abdomen abdominal exam Overall: normal bowel sounds 08/21/2016 None Full Exam - General 1994 Musculoskeletal spine, ribs and pelvis Overall: good posture 08/21/2016 None Full Exam - General 1994 Musculoskeletal gait and station Overall: normal gait 08/21/2016 None Full Exam - General 1994 Musculoskeletal gait and station Overall: normal station 08/21/2016 None Full Exam - General 1994 Musculoskeletal head and neck Overall: head atraumatic 08/21/2016 None Full Exam - General 1994 Musculoskeletal head and neck Overall: cervical spine benign 08/21/2016 None Full Exam - General 1994 Neurologic sensation Touch: (specify location of deficit): vibration no vibration sense on feet bi laterally until at ankles - the pt had sensation but decreased amount of time pt only had about 4 seconds 08/21/2016 None Full Exam - General 1994 Neurologic cranial nerves Overall: crainial nerves 2 - 12 grossly intact 08/21/2016 None Full Exam - General 1994 Psychiatric orientation/consciousness Overall: oriented to person, place and time 08/21/2016 None Full Exam - General 1994 Psychiatric mood and affect Overall: normal mood and affect 08/21/2016 None Full Exam - General 1994 Psychiatric mood and affect Mood: happy 08/21/2016 None Full Exam - General 1994 Constitutional general appearance Overall: well developed 07/24/2016 None Full Exam - General 1994 Constitutional general appearance Overall: in no acute distress 07/24/2016 None Full Exam - General 1994 Constitutional general appearance Overall: well nourished 07/24/2016 None Full Exam - General 1994 Eyes pupils and irises Overall: pupils equal, round, reactive to light and accomodation 07/24/2016 None Full Exam - General 1994 Ears/Nose/Throat otoscopic exam Overall: external auditory canals clear 07/24/2016 None Full Exam - General 1994 Ears/Nose/Throat otoscopic exam Overall: tympanic membranes clear 07/24/2016 None Full Exam - General 1994 Ears/Nose/Throat oral cavity/pharynx/larynx Overall: oral mucosa clear 07/24/2016 None Full Exam - General 1994 Ears/Nose/Throat oral cavity/pharynx/larynx Overall: oropharyngeal mucosa clear 07/24/2016 None Full Exam - General 1994 Ears/Nose/Throat oral cavity/pharynx/larynx Overall: no masses 07/24/2016 None Full Exam - General 1994 Respiratory auscultation Overall: breath sounds clear bilaterally 07/24/2016 None Full Exam - General 1994 Respiratory respiratory effort/rhythm Overall: no retractions 07/24/2016 None Full Exam - General 1994 Respiratory respiratory effort/rhythm Overall: normal rate 07/24/2016 None Full Exam - General 1994 Cardiovascular inspection of carotid pulses Overall: strong, bilaterally equal, no bruits 07/24/2016 None Full Exam - General 1994 Cardiovascular auscultation of heart Overall: regular rate 07/24/2016 None Full Exam - General 1994 Cardiovascular auscultation of heart Overall: normal heart sounds 07/24/2016 None Full Exam - General 1994 Cardiovascular auscultation of heart Overall: no murmurs 07/24/2016 None Full Exam - General 1994 Abdomen abdominal exam Overall: no tenderness 07/24/2016 None Full Exam - General 1994 Abdomen abdominal exam Overall: normal bowel sounds 07/24/2016 None Full Exam - General 1994 Musculoskeletal spine, ribs and pelvis Overall: good posture 07/24/2016 None Full Exam - General 1994 Musculoskeletal gait and station Overall: normal gait 07/24/2016 None Full Exam - General 1994 Musculoskeletal gait and station Overall: normal station 07/24/2016 None Full Exam - General 1994 Musculoskeletal head and neck Overall: head atraumatic 07/24/2016 None Full Exam - General 1994 Musculoskeletal head and neck Overall: cervical spine benign 07/24/2016 None Full Exam - General 1994 Neurologic sensation Touch: (specify location of deficit): vibration no vibration sense on feet bi laterally until at ankles - the pt had sensation but decreased amount of time pt only had about 4 seconds 07/24/2016 None Full Exam - General 1994 Neurologic cranial nerves Overall: crainial nerves 2 - 12 grossly intact 07/24/2016 None Full Exam - General 1994 Psychiatric orientation/consciousness Overall: oriented to person, place and time 07/24/2016 None Full Exam - General 1994 Psychiatric mood and affect Overall: normal mood and affect 07/24/2016 None Full Exam - General 1994 Psychiatric mood and affect Mood: happy 07/24/2016 None Full Exam - General 1994 Constitutional general appearance Overall: well developed 04/24/2016 None Full Exam - General 1994 Constitutional general appearance Overall: in no acute distress 04/24/2016 None Full Exam - General 1994 Constitutional general appearance Overall: well nourished 04/24/2016 None Full Exam - General 1994 Eyes pupils and irises Overall: pupils equal, round, reactive to light and accomodation 04/24/2016 None Full Exam - General 1994 Ears/Nose/Throat otoscopic exam Overall: external auditory canals clear 04/24/2016 None Full Exam - General 1994 Ears/Nose/Throat otoscopic exam Overall: tympanic membranes clear 04/24/2016 None Full Exam - General 1994 Ears/Nose/Throat oral cavity/pharynx/larynx Overall: oral mucosa clear 04/24/2016 None Full Exam - General 1994 Ears/Nose/Throat oral cavity/pharynx/larynx Overall: oropharyngeal mucosa clear 04/24/2016 None Full Exam - General 1994 Ears/Nose/Throat oral cavity/pharynx/larynx Overall: no masses 04/24/2016 None Full Exam - General 1994 Respiratory auscultation Overall: breath sounds clear bilaterally 04/24/2016 None Full Exam - General 1994 Respiratory respiratory effort/rhythm Overall: no retractions 04/24/2016 None Full Exam - General 1994 Respiratory respiratory effort/rhythm Overall: normal rate 04/24/2016 None Full Exam - General 1994 Cardiovascular inspection of carotid pulses Overall: strong, bilaterally equal, no bruits 04/24/2016 None Full Exam - General 1994 Cardiovascular auscultation of heart Overall: regular rate 04/24/2016 None Full Exam - General 1994 Cardiovascular auscultation of heart Overall: normal heart sounds 04/24/2016 None Full Exam - General 1994 Cardiovascular auscultation of heart Overall: no murmurs 04/24/2016 None Full Exam - General 1994 Abdomen abdominal exam Overall: no tenderness 04/24/2016 None Full Exam - General 1994 Abdomen abdominal exam Overall: normal bowel sounds 04/24/2016 None Full Exam - General 1994 Musculoskeletal spine, ribs and pelvis Overall: good posture 04/24/2016 None Full Exam - General 1994 Musculoskeletal gait and station Overall: normal gait 04/24/2016 None Full Exam - General 1994 Musculoskeletal gait and station Overall: normal station 04/24/2016 None Full Exam - General 1994 Musculoskeletal head and neck Overall: head atraumatic 04/24/2016 None Full Exam - General 1994 Musculoskeletal head and neck Overall: cervical spine benign 04/24/2016 None Full Exam - General 1994 Neurologic sensation Touch: (specify location of deficit): vibration no vibration sense on feet bi laterally until at ankles - the pt had sensation but decreased amount of time pt only had about 4 seconds 04/24/2016 None Full Exam - General 1994 Neurologic cranial nerves Overall: crainial nerves 2 - 12 grossly intact 04/24/2016 None Full Exam - General 1994 Psychiatric orientation/consciousness Overall: oriented to person, place and time 04/24/2016 None Full Exam - General 1994 Psychiatric mood and affect Overall: normal mood and affect 04/24/2016 None Full Exam - General 1994 Psychiatric mood and affect Mood: happy 04/24/2016 None Full Exam - General 1994 Constitutional general appearance Overall: well developed 01/18/2016 None Full Exam - General 1994 Constitutional general appearance Overall: in no acute distress 01/18/2016 None Full Exam - General 1994 Constitutional general appearance Overall: well nourished 01/18/2016 None Full Exam - General 1994 Eyes pupils and irises Overall: pupils equal, round, reactive to light and accomodation 01/18/2016 None Full Exam - General 1994 Ears/Nose/Throat otoscopic exam Overall: external auditory canals clear 01/18/2016 None Full Exam - General 1994 Ears/Nose/Throat otoscopic exam Overall: tympanic membranes clear 01/18/2016 None Full Exam - General 1994 Ears/Nose/Throat oral cavity/pharynx/larynx Overall: oral mucosa clear 01/18/2016 None Full Exam - General 1994 Ears/Nose/Throat oral cavity/pharynx/larynx Overall: oropharyngeal mucosa clear 01/18/2016 None Full Exam - General 1994 Ears/Nose/Throat oral cavity/pharynx/larynx Overall: no masses 01/18/2016 None Full Exam - General 1994 Respiratory auscultation Overall: breath sounds clear bilaterally 01/18/2016 None Full Exam - General 1994 Respiratory respiratory effort/rhythm Overall: no retractions 01/18/2016 None Full Exam - General 1994 Respiratory respiratory effort/rhythm Overall: normal rate 01/18/2016 None Full Exam - General 1994 Cardiovascular inspection of carotid pulses Overall: strong, bilaterally equal, no bruits 01/18/2016 None Full Exam - General 1994 Cardiovascular auscultation of heart Overall: regular rate 01/18/2016 None Full Exam - General 1994 Cardiovascular auscultation of heart Overall: normal heart sounds 01/18/2016 None Full Exam - General 1994 Cardiovascular auscultation of heart Overall: no murmurs 01/18/2016 None Full Exam - General 1994 Musculoskeletal spine, ribs and pelvis Overall: good posture 01/18/2016 None Full Exam - General 1994 Musculoskeletal gait and station Overall: normal gait 01/18/2016 None Full Exam - General 1994 Musculoskeletal gait and station Overall: normal station 01/18/2016 None Full Exam - General 1994 Musculoskeletal head and neck Overall: head atraumatic 01/18/2016 None Full Exam - General 1994 Musculoskeletal head and neck Overall: cervical spine benign 01/18/2016 None Full Exam - General 1994 Neurologic cranial nerves Overall: crainial nerves 2 - 12 grossly intact 01/18/2016 None Full Exam - General 1994 Psychiatric orientation/consciousness Overall: oriented to person, place and time 01/18/2016 None Full Exam - General 1994 Psychiatric mood and affect Overall: normal mood and affect 01/18/2016 None Full Exam - General 1994 Psychiatric mood and affect Mood: happy 01/18/2016 None Full Exam - General 1994 Abdomen abdominal exam Overall: no tenderness 01/18/2016 None Full Exam - General 1994 Abdomen abdominal exam Overall: normal bowel sounds 01/18/2016 None Full Exam - General 1994 Neurologic sensation Touch: (specify location of deficit): vibration no vibration sense on feet bi laterally until at ankles - the pt had sensation but decreased amount of time pt only had about 4 seconds 01/18/2016 None Full Exam - General 1994 Constitutional general appearance Overall: well developed 12/21/2015 None Full Exam - General 1994 Constitutional general appearance Overall: in no acute distress 12/21/2015 None Full Exam - General 1994 Constitutional general appearance Overall: well nourished 12/21/2015 None Full Exam - General 1994 Eyes pupils and irises Overall: pupils equal, round, reactive to light and accomodation 12/21/2015 None Full Exam - General 1994 Ears/Nose/Throat otoscopic exam Overall: external auditory canals clear 12/21/2015 None Full Exam - General 1994 Ears/Nose/Throat otoscopic exam Overall: tympanic membranes clear 12/21/2015 None Full Exam - General 1994 Ears/Nose/Throat oral cavity/pharynx/larynx Overall: oral mucosa clear 12/21/2015 None Full Exam - General 1994 Ears/Nose/Throat oral cavity/pharynx/larynx Overall: oropharyngeal mucosa clear 12/21/2015 None Full Exam - General 1994 Ears/Nose/Throat oral cavity/pharynx/larynx Overall: no masses 12/21/2015 None Full Exam - General 1994 Respiratory auscultation Overall: breath sounds clear bilaterally 12/21/2015 None Full Exam - General 1994 Respiratory respiratory effort/rhythm Overall: no retractions 12/21/2015 None Full Exam - General 1994 Respiratory respiratory effort/rhythm Overall: normal rate 12/21/2015 None Full Exam - General 1994 Cardiovascular inspection of carotid pulses Overall: strong, bilaterally equal, no bruits 12/21/2015 None Full Exam - General 1994 Cardiovascular auscultation of heart Overall: regular rate 12/21/2015 None Full Exam - General 1994 Cardiovascular auscultation of heart Overall: normal heart sounds 12/21/2015 None Full Exam - General 1994 Cardiovascular auscultation of heart Overall: no murmurs 12/21/2015 None Full Exam - General 1994 Musculoskeletal spine, ribs and pelvis Overall: good posture 12/21/2015 None Full Exam - General 1994 Musculoskeletal gait and station Overall: normal gait 12/21/2015 None Full Exam - General 1994 Musculoskeletal gait and station Overall: normal station 12/21/2015 None Full Exam - General 1994 Musculoskeletal head and neck Overall: head atraumatic 12/21/2015 None Full Exam - General 1994 Musculoskeletal head and neck Overall: cervical spine benign 12/21/2015 None Full Exam - General 1994 Neurologic cranial nerves Overall: crainial nerves 2 - 12 grossly intact 12/21/2015 None Full Exam - General 1994 Psychiatric orientation/consciousness Overall: oriented to person, place and time 12/21/2015 None Full Exam - General 1994 Psychiatric mood and affect Overall: normal mood and affect 12/21/2015 None Full Exam - General 1994 Psychiatric mood and affect Mood: happy 12/21/2015 None Full Exam - General 1994 Abdomen abdominal exam Overall: no tenderness 12/21/2015 None Full Exam - General 1994 Abdomen abdominal exam Overall: normal bowel sounds 12/21/2015 None Full Exam - General 1994 Constitutional general appearance Overall: well developed 08/17/2015 None Full Exam - General 1994 Constitutional general appearance Overall: in no acute distress 08/17/2015 None Full Exam - General 1994 Constitutional general appearance Overall: well nourished 08/17/2015 None Full Exam - General 1994 Eyes pupils and irises Overall: pupils equal, round, reactive to light and accomodation 08/17/2015 None Full Exam - General 1994 Ears/Nose/Throat otoscopic exam Overall: external auditory canals clear 08/17/2015 None Full Exam - General 1994 Ears/Nose/Throat otoscopic exam Overall: tympanic membranes clear 08/17/2015 None Full Exam - General 1994 Ears/Nose/Throat oral cavity/pharynx/larynx Overall: oral mucosa clear 08/17/2015 None Full Exam - General 1994 Ears/Nose/Throat oral cavity/pharynx/larynx Overall: oropharyngeal mucosa clear 08/17/2015 None Full Exam - General 1994 Ears/Nose/Throat oral cavity/pharynx/larynx Overall: no masses 08/17/2015 None Full Exam - General 1994 Respiratory auscultation Overall: breath sounds clear bilaterally 08/17/2015 None Full Exam - General 1994 Respiratory respiratory effort/rhythm Overall: no retractions 08/17/2015 None Full Exam - General 1994 Respiratory respiratory effort/rhythm Overall: normal rate 08/17/2015 None Full Exam - General 1994 Cardiovascular inspection of carotid pulses Overall: strong, bilaterally equal, no bruits 08/17/2015 None Full Exam - General 1994 Cardiovascular auscultation of heart Overall: regular rate 08/17/2015 None Full Exam - General 1994 Cardiovascular auscultation of heart Overall: normal heart sounds 08/17/2015 None Full Exam - General 1994 Cardiovascular auscultation of heart Overall: no murmurs 08/17/2015 None Full Exam - General 1994 Musculoskeletal spine, ribs and pelvis Overall: good posture 08/17/2015 None Full Exam - General 1994 Musculoskeletal gait and station Overall: normal gait 08/17/2015 None Full Exam - General 1994 Musculoskeletal gait and station Overall: normal station 08/17/2015 None Full Exam - General 1994 Musculoskeletal head and neck Overall: head atraumatic 08/17/2015 None Full Exam - General 1994 Musculoskeletal head and neck Overall: cervical spine benign 08/17/2015 None Full Exam - General 1994 Neurologic cranial nerves Overall: crainial nerves 2 - 12 grossly intact 08/17/2015 None Full Exam - General 1994 Psychiatric orientation/consciousness Overall: oriented to person, place and time 08/17/2015 None Full Exam - General 1994 Psychiatric mood and affect Overall: normal mood and affect 08/17/2015 None Full Exam - General 1994 Psychiatric mood and affect Mood: happy 08/17/2015 None Full Exam - General 1994 Constitutional general appearance Overall: well developed 06/23/2015 None Full Exam - General 1994 Constitutional general appearance Overall: in no acute distress 06/23/2015 None Full Exam - General 1994 Constitutional general appearance Overall: well nourished 06/23/2015 None Full Exam - General 1994 Eyes pupils and irises Overall: pupils equal, round, reactive to light and accomodation 06/23/2015 None Full Exam - General 1994 Ears/Nose/Throat otoscopic exam Overall: external auditory canals clear 06/23/2015 None Full Exam - General 1994 Ears/Nose/Throat oral cavity/pharynx/larynx Overall: oral mucosa clear 06/23/2015 None Full Exam - General 1994 Ears/Nose/Throat oral cavity/pharynx/larynx Overall: oropharyngeal mucosa clear 06/23/2015 None Full Exam - General 1994 Ears/Nose/Throat oral cavity/pharynx/larynx Overall: no masses 06/23/2015 None Full Exam - General 1994 Respiratory auscultation Overall: breath sounds clear bilaterally 06/23/2015 None Full Exam - General 1994 Respiratory respiratory effort/rhythm Overall: no retractions 06/23/2015 None Full Exam - General 1994 Respiratory respiratory effort/rhythm Overall: normal rate 06/23/2015 None Full Exam - General 1994 Cardiovascular extremities Overall: no clubbing 06/23/2015 None Full Exam - General 1994 Cardiovascular extremities Edema present: pitting 06/23/2015 left ankle/foot 2-3+ Full Exam - General 1994 Cardiovascular extremities Edema present: non-pitting 06/23/2015 right ankle 1+ Full Exam - General 1994 Cardiovascular auscultation of heart Overall: regular rate 06/23/2015 None Full Exam - General 1994 Cardiovascular auscultation of heart Overall: normal heart sounds 06/23/2015 None Full Exam - General 1994 Cardiovascular auscultation of heart Overall: no murmurs 06/23/2015 None Full Exam - General 1994 Abdomen abdominal exam Overall: no tenderness 06/23/2015 None Full Exam - General 1994 Abdomen abdominal exam Overall: normal bowel sounds 06/23/2015 None Full Exam - General 1994 Musculoskeletal lower extremity Inspection - foot: hallux valgus 06/23/2015 None Full Exam - General 1994 Integument inspection of skin Location: back 06/23/2015 None Full Exam - General 1994 Integument inspection of skin Overall: few scattered moles, no gross abnormalities 06/23/2015 None Full Exam - General 1994 Integument inspection of skin Rash/Lesions: surgical site 06/23/2015 midline low back with wel l approximated surgical incision, no redness, warmth, edema or drainage, left hip with well approximated surgical incision also with no redness, warmth, edema or drainage Full Exam - General 1994 Neurologic cranial nerves Overall: crainial nerves 2 - 12 grossly intact 06/23/2015 None Full Exam - General 1994 Psychiatric orientation/consciousness Overall: oriented to person, place and time 06/23/2015 None Full Exam - General 1994 Psychiatric mood and affect Overall: normal mood and affect 06/23/2015 None Full Exam - General 1994 Ears/Nose/Throat otoscopic exam Tympanic membrane: air-fluid level 06/23/2015 mild Full Exam - General 1994 Ears/Nose/Throat otoscopic exam Tympanic membrane: a normal exam 06/23/2015 None Full Exam - General 1994 Cardiovascular inspection of pedal pulses Dorsalis pedis: a normal exam 06/23/2015 None Full Exam - General 1994 Cardiovascular inspection of pedal pulses Overall: strong, equal bilaterally 06/23/2015 None Full Exam - General 1994 Cardiovascular inspection of pedal pulses Posterior tibial pulse: a normal exam 06/23/2015 None Full Exam - General 1994 Constitutional general appearance Overall: well developed 06/21/2015 None Full Exam - General 1994 Constitutional general appearance Overall: in no acute distress 06/21/2015 None Full Exam - General 1994 Constitutional general appearance Overall: well nourished 06/21/2015 None Full Exam - General 1994 Eyes pupils and irises Overall: pupils equal, round, reactive to light and accomodation 06/21/2015 None Full Exam - General 1994 Ears/Nose/Throat otoscopic exam Overall: external auditory canals clear 06/21/2015 None Full Exam - General 1994 Ears/Nose/Throat otoscopic exam Overall: tympanic membranes clear 06/21/2015 None Full Exam - General 1994 Ears/Nose/Throat oral cavity/pharynx/larynx Overall: oral mucosa clear 06/21/2015 None Full Exam - General 1994 Ears/Nose/Throat oral cavity/pharynx/larynx Overall: oropharyngeal mucosa clear 06/21/2015 None Full Exam - General 1994 Ears/Nose/Throat oral cavity/pharynx/larynx Overall: no masses 06/21/2015 None Full Exam - General 1994 Respiratory auscultation Overall: breath sounds clear bilaterally 06/21/2015 None Full Exam - General 1994 Respiratory respiratory effort/rhythm Overall: no retractions 06/21/2015 None Full Exam - General 1994 Respiratory respiratory effort/rhythm Overall: normal rate 06/21/2015 None Full Exam - General 1994 Cardiovascular inspection of carotid pulses Overall: strong, bilaterally equal, no bruits 06/21/2015 None Full Exam - General 1994 Cardiovascular auscultation of heart Overall: regular rate 06/21/2015 None Full Exam - General 1994 Cardiovascular auscultation of heart Overall: normal heart sounds 06/21/2015 None Full Exam - General 1994 Cardiovascular auscultation of heart Overall: no murmurs 06/21/2015 None Full Exam - General 1994 Abdomen abdominal exam Overall: no tenderness 06/21/2015 None Full Exam - General 1994 Abdomen abdominal exam Overall: normal bowel sounds 06/21/2015 None Full Exam - General 1994 Neurologic cranial nerves Overall: crainial nerves 2 - 12 grossly intact 06/21/2015 None Full Exam - General 1994 Psychiatric orientation/consciousness Overall: oriented to person, place and time 06/21/2015 None Full Exam - General 1994 Psychiatric mood and affect Overall: normal mood and affect 06/21/2015 None Full Exam - General 1994 Integument inspection of skin Overall: few scattered moles, no gross abnormalities 06/21/2015 None Full Exam - General 1994 Integument inspection of skin Location: back 06/21/2015 None Full Exam - General 1994 Integument inspection of skin Rash/Lesions: surgical site 06/21/2015 midline low back with wel l approximated surgical incision, no redness, warmth, edema or drainage, left hip with well approximated surgical incision also with no redness, warmth, edema or drainage Full Exam - General 1994 Musculoskeletal lower extremity Inspection - foot: hallux valgus 06/21/2015 None Full Exam - General 1994 Cardiovascular extremities Overall: no clubbing 06/21/2015 None Full Exam - General 1994 Cardiovascular extremities Edema present: pitting 06/21/2015 left ankle 1+ Full Exam - General 1994 Cardiovascular extremities Edema present: non-pitting 06/21/2015 right ankle 1+ Full Exam - General 1994 Constitutional general appearance Overall: well developed 03/28/2015 None Full Exam - General 1994 Constitutional general appearance Overall: in no acute distress 03/28/2015 None Full Exam - General 1994 Constitutional general appearance Overall: well nourished 03/28/2015 None Full Exam - General 1994 Eyes pupils and irises Overall: pupils equal, round, reactive to light and accomodation 03/28/2015 None Full Exam - General 1994 Ears/Nose/Throat otoscopic exam Overall: external auditory canals clear 03/28/2015 None Full Exam - General 1994 Ears/Nose/Throat otoscopic exam Overall: tympanic membranes clear 03/28/2015 None Full Exam - General 1994 Ears/Nose/Throat oral cavity/pharynx/larynx Overall: oral mucosa clear 03/28/2015 None Full Exam - General 1994 Ears/Nose/Throat oral cavity/pharynx/larynx Overall: oropharyngeal mucosa clear 03/28/2015 None Full Exam - General 1994 Ears/Nose/Throat oral cavity/pharynx/larynx Overall: no masses 03/28/2015 None Full Exam - General 1994 Respiratory auscultation Overall: breath sounds clear bilaterally 03/28/2015 None Full Exam - General 1994 Respiratory respiratory effort/rhythm Overall: no retractions 03/28/2015 None Full Exam - General 1994 Respiratory respiratory effort/rhythm Overall: normal rate 03/28/2015 None Full Exam - General 1994 Cardiovascular inspection of carotid pulses Overall: strong, bilaterally equal, no bruits 03/28/2015 None Full Exam - General 1994 Cardiovascular auscultation of heart Overall: regular rate 03/28/2015 None Full Exam - General 1994 Cardiovascular auscultation of heart Overall: normal heart sounds 03/28/2015 None Full Exam - General 1994 Cardiovascular auscultation of heart Overall: no murmurs 03/28/2015 None Full Exam - General 1994 Abdomen abdominal exam Overall: no tenderness 03/28/2015 None Full Exam - General 1994 Abdomen abdominal exam Overall: normal bowel sounds 03/28/2015 None Full Exam - General 1994 Neurologic cranial nerves Overall: crainial nerves 2 - 12 grossly intact 03/28/2015 None Full Exam - General 1994 Psychiatric orientation/consciousness Overall: oriented to person, place and time 03/28/2015 None Full Exam - General 1994 Psychiatric mood and affect Overall: normal mood and affect 03/28/2015 None Full Exam - General 1994 Psychiatric mood and affect Mood: happy 03/28/2015 None Full Exam - General 1994 Musculoskeletal spine, ribs and pelvis Sacroiliac joints: tender right sacroiliac joint 03/28/2015 None Full Exam - General 1994 Constitutional general appearance Overall: well developed 07/07/2014 None Full Exam - General 1994 Constitutional general appearance Overall: in no acute distress 07/07/2014 None Full Exam - General 1994 Constitutional general appearance Overall: well nourished 07/07/2014 None Full Exam - General 1994 Eyes pupils and irises Overall: pupils equal, round, reactive to light and accomodation 07/07/2014 None Full Exam - General 1994 Ears/Nose/Throat otoscopic exam Overall: external auditory canals clear 07/07/2014 None Full Exam - General 1994 Ears/Nose/Throat otoscopic exam Overall: tympanic membranes clear 07/07/2014 None Full Exam - General 1994 Ears/Nose/Throat oral cavity/pharynx/larynx Overall: oral mucosa clear 07/07/2014 None Full Exam - General 1994 Ears/Nose/Throat oral cavity/pharynx/larynx Overall: oropharyngeal mucosa clear 07/07/2014 None Full Exam - General 1994 Ears/Nose/Throat oral cavity/pharynx/larynx Overall: no masses 07/07/2014 None Full Exam - General 1994 Respiratory auscultation Overall: breath sounds clear bilaterally 07/07/2014 None Full Exam - General 1994 Respiratory respiratory effort/rhythm Overall: no retractions 07/07/2014 None Full Exam - General 1994 Respiratory respiratory effort/rhythm Overall: normal rate 07/07/2014 None Full Exam - General 1994 Cardiovascular inspection of carotid pulses Overall: strong, bilaterally equal, no bruits 07/07/2014 None Full Exam - General 1994 Cardiovascular auscultation of heart Overall: regular rate 07/07/2014 None Full Exam - General 1994 Cardiovascular auscultation of heart Overall: normal heart sounds 07/07/2014 None Full Exam - General 1994 Cardiovascular auscultation of heart Overall: no murmurs 07/07/2014 None Full Exam - General 1994 Musculoskeletal spine, ribs and pelvis Overall: good posture 07/07/2014 None Full Exam - General 1994 Neurologic cranial nerves Overall: crainial nerves 2 - 12 grossly intact 07/07/2014 None Full Exam - General 1994 Psychiatric orientation/consciousness Overall: oriented to person, place and time 07/07/2014 None Full Exam - General 1994 Psychiatric mood and affect Overall: normal mood and affect 07/07/2014 None Full Exam - General 1994 Psychiatric mood and affect Mood: happy 07/07/2014 None Full Exam - General 1994 Musculoskeletal gait and station Overall: normal gait 07/07/2014 None Full Exam - General 1994 Musculoskeletal gait and station Overall: normal station 07/07/2014 None Full Exam - General 1994 Musculoskeletal head and neck Overall: cervical spine benign 07/07/2014 None Full Exam - General 1994 Musculoskeletal head and neck Overall: head atraumatic 07/07/2014 None Full Exam - General 1994 Constitutional general appearance Overall: well developed 03/24/2014 None Full Exam - General 1994 Constitutional general appearance Overall: in no acute distress 03/24/2014 None Full Exam - General 1994 Constitutional general appearance Overall: well nourished 03/24/2014 None Full Exam - General 1994 Eyes pupils and irises Overall: pupils equal, round, reactive to light and accomodation 03/24/2014 None Full Exam - General 1994 Ears/Nose/Throat otoscopic exam Overall: external auditory canals clear 03/24/2014 None Full Exam - General 1994 Ears/Nose/Throat otoscopic exam Overall: tympanic membranes clear 03/24/2014 None Full Exam - General 1994 Ears/Nose/Throat oral cavity/pharynx/larynx Overall: oral mucosa clear 03/24/2014 None Full Exam - General 1994 Ears/Nose/Throat oral cavity/pharynx/larynx Overall: oropharyngeal mucosa clear 03/24/2014 None Full Exam - General 1994 Ears/Nose/Throat oral cavity/pharynx/larynx Overall: no masses 03/24/2014 None Full Exam - General 1994 Respiratory auscultation Overall: breath sounds clear bilaterally 03/24/2014 None Full Exam - General 1994 Respiratory respiratory effort/rhythm Overall: no retractions 03/24/2014 None Full Exam - General 1994 Respiratory respiratory effort/rhythm Overall: normal rate 03/24/2014 None Full Exam - General 1994 Cardiovascular inspection of carotid pulses Overall: strong, bilaterally equal, no bruits 03/24/2014 None Full Exam - General 1994 Cardiovascular auscultation of heart Overall: regular rate 03/24/2014 None Full Exam - General 1994 Cardiovascular auscultation of heart Overall: normal heart sounds 03/24/2014 None Full Exam - General 1994 Cardiovascular auscultation of heart Overall: no murmurs 03/24/2014 None Full Exam - General 1994 Abdomen abdominal exam Overall: no tenderness 03/24/2014 None Full Exam - General 1994 Abdomen abdominal exam Overall: normal bowel sounds 03/24/2014 None Full Exam - General 1994 Musculoskeletal spine, ribs and pelvis Overall: good posture 03/24/2014 None Full Exam - General 1994 Integument inspection of skin Location: right leg 03/24/2014 bruising noted for riight thigh to right foot Full Exam - General 1994 Neurologic cranial nerves Overall: crainial nerves 2 - 12 grossly intact 03/24/2014 None Full Exam - General 1994 Psychiatric orientation/consciousness Overall: oriented to person, place and time 03/24/2014 None Full Exam - General 1994 Psychiatric mood and affect Overall: normal mood and affect 03/24/2014 None Full Exam - General 1994 Psychiatric mood and affect Mood: happy 03/24/2014 None Full Exam - General 1994 Constitutional general appearance Overall: well developed 01/20/2014 None Full Exam - General 1994 Constitutional general appearance Overall: in no acute distress 01/20/2014 None Full Exam - General 1994 Constitutional general appearance Overall: well nourished 01/20/2014 None Full Exam - General 1994 Eyes pupils and irises Overall: pupils equal, round, reactive to light and accomodation 01/20/2014 None Full Exam - General 1994 Ears/Nose/Throat otoscopic exam Overall: external auditory canals clear 01/20/2014 None Full Exam - General 1994 Ears/Nose/Throat otoscopic exam Overall: tympanic membranes clear 01/20/2014 None Full Exam - General 1994 Ears/Nose/Throat oral cavity/pharynx/larynx Overall: oral mucosa clear 01/20/2014 None Full Exam - General 1994 Ears/Nose/Throat oral cavity/pharynx/larynx Overall: oropharyngeal mucosa clear 01/20/2014 None Full Exam - General 1994 Ears/Nose/Throat oral cavity/pharynx/larynx Overall: no masses 01/20/2014 None Full Exam - General 1994 Respiratory auscultation Overall: breath sounds clear bilaterally 01/20/2014 None Full Exam - General 1994 Respiratory respiratory effort/rhythm Overall: no retractions 01/20/2014 None Full Exam - General 1994 Respiratory respiratory effort/rhythm Overall: normal rate 01/20/2014 None Full Exam - General 1994 Cardiovascular inspection of carotid pulses Overall: strong, bilaterally equal, no bruits 01/20/2014 None Full Exam - General 1994 Cardiovascular auscultation of heart Overall: regular rate 01/20/2014 None Full Exam - General 1994 Cardiovascular auscultation of heart Overall: normal heart sounds 01/20/2014 None Full Exam - General 1994 Cardiovascular auscultation of heart Overall: no murmurs 01/20/2014 None Full Exam - General 1994 Abdomen abdominal exam Overall: no tenderness 01/20/2014 None Full Exam - General 1994 Abdomen abdominal exam Overall: normal bowel sounds 01/20/2014 None Full Exam - General 1994 Musculoskeletal spine, ribs and pelvis Overall: good posture 01/20/2014 None Full Exam - General 1994 Neurologic cranial nerves Overall: crainial nerves 2 - 12 grossly intact 01/20/2014 None Full Exam - General 1994 Psychiatric orientation/consciousness Overall: oriented to person, place and time 01/20/2014 None Full Exam - General 1994 Psychiatric mood and affect Overall: normal mood and affect 01/20/2014 None Full Exam - General 1994 Psychiatric mood and affect Mood: happy 01/20/2014 None Full Exam - General 1994 Integument inspection of skin Location: right leg 01/20/2014 bruising noted for riight thigh to right foot Full Exam - General 1994 Constitutional general appearance Overall: well developed 12/20/2013 None Full Exam - General 1994 Constitutional general appearance Overall: in no acute distress 12/20/2013 None Full Exam - General 1994 Constitutional general appearance Overall: well nourished 12/20/2013 None Full Exam - General 1994 Eyes pupils and irises Overall: pupils equal, round, reactive to light and accomodation 12/20/2013 None Full Exam - General 1994 Ears/Nose/Throat otoscopic exam Overall: external auditory canals clear 12/20/2013 None Full Exam - General 1994 Ears/Nose/Throat otoscopic exam Overall: tympanic membranes clear 12/20/2013 None Full Exam - General 1994 Ears/Nose/Throat oral cavity/pharynx/larynx Overall: oral mucosa clear 12/20/2013 None Full Exam - General 1994 Ears/Nose/Throat oral cavity/pharynx/larynx Overall: oropharyngeal mucosa clear 12/20/2013 None Full Exam - General 1994 Ears/Nose/Throat oral cavity/pharynx/larynx Overall: no masses 12/20/2013 None Full Exam - General 1994 Respiratory auscultation Overall: breath sounds clear bilaterally 12/20/2013 None Full Exam - General 1994 Respiratory respiratory effort/rhythm Overall: no retractions 12/20/2013 None Full Exam - General 1994 Respiratory respiratory effort/rhythm Overall: normal rate 12/20/2013 None Full Exam - General 1994 Cardiovascular inspection of carotid pulses Overall: strong, bilaterally equal, no bruits 12/20/2013 None Full Exam - General 1994 Cardiovascular auscultation of heart Overall: regular rate 12/20/2013 None Full Exam - General 1994 Cardiovascular auscultation of heart Overall: normal heart sounds 12/20/2013 None Full Exam - General 1994 Cardiovascular auscultation of heart Overall: no murmurs 12/20/2013 None Full Exam - General 1994 Abdomen abdominal exam Overall: no tenderness 12/20/2013 None Full Exam - General 1994 Abdomen abdominal exam Overall: normal bowel sounds 12/20/2013 None Full Exam - General 1994 Musculoskeletal spine, ribs and pelvis Overall: good posture 12/20/2013 None Full Exam - General 1994 Neurologic gait Overall: no ataxia, no unsteadiness 12/20/2013 None Full Exam - General 1994 Neurologic cranial nerves Overall: crainial nerves 2 - 12 grossly intact 12/20/2013 None Full Exam - General 1994 Psychiatric orientation/consciousness Overall: oriented to person, place and time 12/20/2013 None Full Exam - General 1994 Psychiatric mood and affect Overall: normal mood and affect 12/20/2013 None Full Exam - General 1994 Psychiatric mood and affect Mood: happy 12/20/2013 None Full Exam - General 1994 Neurologic sensation Touch: (specify location of deficit): vibration decreased - right greater braulio n left - right 6 seconds, left 10 seconds 12/20/2013 None Full Exam - General 1994 Neurologic sensation Touch: (specify location of deficit): point localization decreased on right - great toe, over callus at 5th toe, and metatarsal head on right foot great toe, digit #3, and 5th toe, on left great toe and 5th toe and heel with decreased sensation 12/20/2013 None Full Exam - General 1994 Constitutional general appearance Overall: well developed 10/25/2013 None Full Exam - General 1994 Constitutional general appearance Overall: in no acute distress 10/25/2013 None Full Exam - General 1994 Constitutional general appearance Overall: well nourished 10/25/2013 None Full Exam - General 1994 Eyes pupils and irises Overall: pupils equal, round, reactive to light and accomodation 10/25/2013 None Full Exam - General 1995 Ears/Nose/Throat otoscopic exam Overall: external auditory canals clear 10/25/2013 None Full Exam - General 1995 Ears/Nose/Throat otoscopic exam Overall: tympanic membranes clear 10/25/2013 None Full Exam - General 1995 Ears/Nose/Throat oral cavity/pharynx/larynx Overall: oral mucosa clear 10/25/2013 None Full Exam - General 1995 Ears/Nose/Throat oral cavity/pharynx/larynx Overall: oropharyngeal mucosa clear 10/25/2013 None Full Exam - General 1995 Ears/Nose/Throat oral cavity/pharynx/larynx Overall: no masses 10/25/2013 None Full Exam - General 1994 Respiratory auscultation Overall: breath sounds clear bilaterally 10/25/2013 None Full Exam - General 1994 Respiratory respiratory effort/rhythm Overall: no retractions 10/25/2013 None Full Exam - General 1994 Respiratory respiratory effort/rhythm Overall: normal rate 10/25/2013 None Full Exam - General 1994 Cardiovascular inspection of carotid pulses Overall: strong, bilaterally equal, no bruits 10/25/2013 None Full Exam - General 1994 Cardiovascular auscultation of heart Overall: regular rate 10/25/2013 None Full Exam - General 1994 Cardiovascular auscultation of heart Overall: normal heart sounds 10/25/2013 None Full Exam - General 1994 Cardiovascular auscultation of heart Overall: no murmurs 10/25/2013 None Full Exam - General 1994 Abdomen abdominal exam Overall: no tenderness 10/25/2013 None Full Exam - General 1994 Abdomen abdominal exam Overall: normal bowel sounds 10/25/2013 None Full Exam - General 1994 Musculoskeletal spine, ribs and pelvis Overall: good posture 10/25/2013 None Full Exam - General 1994 Neurologic gait Overall: no ataxia, no unsteadiness 10/25/2013 None Full Exam - General 1994 Neurologic cranial nerves Overall: crainial nerves 2 - 12 grossly intact 10/25/2013 None Full Exam - General 1994 Psychiatric orientation/consciousness Overall: oriented to person, place and time 10/25/2013 None Full Exam - General 1994 Psychiatric mood and affect Overall: normal mood and affect 10/25/2013 None Full Exam - General 1994 Psychiatric mood and affect Mood: happy 10/25/2013 None Full Exam - General 1994 Ears/Nose/Throat otoscopic exam Overall: tympanic membranes clear 10/19/2013 None Full Exam - General 1995 Ears/Nose/Throat oral cavity/pharynx/larynx Overall: oral mucosa clear 10/19/2013 None Full Exam - General 1995 Ears/Nose/Throat oral cavity/pharynx/larynx Overall: oropharyngeal mucosa clear 10/19/2013 None Full Exam - General 1995 Ears/Nose/Throat oral cavity/pharynx/larynx Overall: no masses 10/19/2013 None Full Exam - General 1994 Respiratory auscultation Overall: breath sounds clear bilaterally 10/19/2013 None Full Exam - General 1994 Respiratory respiratory effort/rhythm Overall: no retractions 10/19/2013 None Full Exam - General 1994 Respiratory respiratory effort/rhythm Overall: normal rate 10/19/2013 None Full Exam - General 1994 Cardiovascular inspection of carotid pulses Overall: strong, bilaterally equal, no bruits 10/19/2013 None Full Exam - General 1994 Cardiovascular auscultation of heart Overall: regular rate 10/19/2013 None Full Exam - General 1994 Cardiovascular auscultation of heart Overall: normal heart sounds 10/19/2013 None Full Exam - General 1994 Cardiovascular auscultation of heart Overall: no murmurs 10/19/2013 None Full Exam - General 1994 Abdomen abdominal exam Overall: no tenderness 10/19/2013 None Full Exam - General 1994 Abdomen abdominal exam Overall: normal bowel sounds 10/19/2013 None Full Exam - General 1994 Musculoskeletal spine, ribs and pelvis Overall: good posture 10/19/2013 None Full Exam - General 1994 Constitutional general appearance Overall: well developed 10/19/2013 None Full Exam - General 1994 Constitutional general appearance Overall: in no acute distress 10/19/2013 None Full Exam - General 1994 Constitutional general appearance Overall: well nourished 10/19/2013 None Full Exam - General 1994 Eyes pupils and irises Overall: pupils equal, round, reactive to light and accomodation 10/19/2013 None Full Exam - General 1994 Ears/Nose/Throat otoscopic exam Overall: external auditory canals clear 10/19/2013 None Full Exam - General 1994 Musculoskeletal spine, ribs and pelvis Palpation: a normal exam 10/19/2013 previous left inner thigh tenderness resolved. Full Exam - General 1994 Musculoskeletal head and neck Overall: head atraumatic 10/19/2013 None Full Exam - General 1994 Musculoskeletal head and neck Overall: cervical spine benign 10/19/2013 None Full Exam - General 1995 Neurologic gait Overall: no ataxia, no unsteadiness 10/19/2013 None Full Exam - General 1995 Neurologic cranial nerves Overall: crainial nerves 2 - 12 grossly intact 10/19/2013 None Full Exam - General 1995 Psychiatric orientation/consciousness Overall: oriented to person, place and time 10/19/2013 None Full Exam - General 1995 Psychiatric mood and affect Overall: normal mood and affect 10/19/2013 None Full Exam - General 1995 Psychiatric mood and affect Mood: happy 10/19/2013 None Full Exam - General 1995 Musculoskeletal head and neck Overall: cervical spine benign 05/25/2013 None Full Exam - General 1995 Neurologic gait Overall: no ataxia, no unsteadiness 05/25/2013 None Full Exam - General 1995 Neurologic cranial nerves Overall: crainial nerves 2 - 12 grossly intact 05/25/2013 None Full Exam - General 1994 Psychiatric orientation/consciousness Overall: oriented to person, place and time 05/25/2013 None Full Exam - General 1994 Psychiatric mood and affect Overall: normal mood and affect 05/25/2013 None Full Exam - General 1994 Psychiatric mood and affect Mood: happy 05/25/2013 None Full Exam - General 1994 Constitutional general appearance Overall: well developed 05/25/2013 None Full Exam - General 1994 Constitutional general appearance Overall: in no acute distress 05/25/2013 None Full Exam - General 1994 Constitutional general appearance Overall: well nourished 05/25/2013 None Full Exam - General 1994 Eyes pupils and irises Overall: pupils equal, round, reactive to light and accomodation 05/25/2013 None Full Exam - General 1994 Ears/Nose/Throat otoscopic exam Overall: external auditory canals clear 05/25/2013 None Full Exam - General 1994 Ears/Nose/Throat otoscopic exam Overall: tympanic membranes clear 05/25/2013 None Full Exam - General 1995 Ears/Nose/Throat oral cavity/pharynx/larynx Overall: oral mucosa clear 05/25/2013 None Full Exam - General 1995 Ears/Nose/Throat oral cavity/pharynx/larynx Overall: oropharyngeal mucosa clear 05/25/2013 None Full Exam - General 1995 Ears/Nose/Throat oral cavity/pharynx/larynx Overall: no masses 05/25/2013 None Full Exam - General 1994 Respiratory auscultation Overall: breath sounds clear bilaterally 05/25/2013 None Full Exam - General 1994 Respiratory respiratory effort/rhythm Overall: no retractions 05/25/2013 None Full Exam - General 1994 Respiratory respiratory effort/rhythm Overall: normal rate 05/25/2013 None Full Exam - General 1994 Cardiovascular inspection of carotid pulses Overall: strong, bilaterally equal, no bruits 05/25/2013 None Full Exam - General 1994 Cardiovascular auscultation of heart Overall: regular rate 05/25/2013 None Full Exam - General 1994 Cardiovascular auscultation of heart Overall: normal heart sounds 05/25/2013 None Full Exam - General 1994 Cardiovascular auscultation of heart Overall: no murmurs 05/25/2013 None Full Exam - General 1994 Abdomen abdominal exam Overall: no tenderness 05/25/2013 None Full Exam - General 1995 Abdomen abdominal exam Overall: normal bowel sounds 05/25/2013 None Full Exam - General 1994 Musculoskeletal spine, ribs and pelvis Overall: good posture 05/25/2013 None Full Exam - General 1994 Musculoskeletal spine, ribs and pelvis Palpation: a normal exam 05/25/2013 previous left inner thigh tenderness resolved. Full Exam - General 1994 Musculoskeletal head and neck Overall: head atraumatic 05/25/2013 None Full Exam - General 1994 Constitutional general appearance Overall: well developed 02/18/2013 None Full Exam - General 1994 Constitutional general appearance Overall: in no acute distress 02/18/2013 None Full Exam - General 1994 Constitutional general appearance Overall: well nourished 02/18/2013 None Full Exam - General 1994 Eyes pupils and irises Overall: pupils equal, round, reactive to light and accomodation 02/18/2013 None Full Exam - General 1994 Ears/Nose/Throat otoscopic exam Overall: external auditory canals clear 02/18/2013 None Full Exam - General 1994 Ears/Nose/Throat otoscopic exam Overall: tympanic membranes clear 02/18/2013 None Full Exam - General 1994 Ears/Nose/Throat oral cavity/pharynx/larynx Overall: oral mucosa clear 02/18/2013 None Full Exam - General 1995 Ears/Nose/Throat oral cavity/pharynx/larynx Overall: oropharyngeal mucosa clear 02/18/2013 None Full Exam - General 1995 Ears/Nose/Throat oral cavity/pharynx/larynx Overall: no masses 02/18/2013 None Full Exam - General 1994 Respiratory auscultation Overall: breath sounds clear bilaterally 02/18/2013 None Full Exam - General 1994 Respiratory respiratory effort/rhythm Overall: no retractions 02/18/2013 None Full Exam - General 1995 Respiratory respiratory effort/rhythm Overall: normal rate 02/18/2013 None Full Exam - General 1995 Cardiovascular inspection of carotid pulses Overall: strong, bilaterally equal, no bruits 02/18/2013 None Full Exam - General 1995 Cardiovascular auscultation of heart Overall: regular rate 02/18/2013 None Full Exam - General 1995 Cardiovascular auscultation of heart Overall: normal heart sounds 02/18/2013 None Full Exam - General 1995 Cardiovascular auscultation of heart Overall: no murmurs 02/18/2013 None Full Exam - General 1995 Abdomen abdominal exam Overall: no tenderness 02/18/2013 None Full Exam - General 1995 Abdomen abdominal exam Overall: normal bowel sounds 02/18/2013 None Full Exam - General 1995 Musculoskeletal spine, ribs and pelvis Overall: good posture 02/18/2013 None Full Exam - General 1994 Musculoskeletal spine, ribs and pelvis Palpation: a normal exam 02/18/2013 previous left inner thigh tenderness resolved. Full Exam - General 1994 Musculoskeletal head and neck Overall: head atraumatic 02/18/2013 None Full Exam - General 1994 Musculoskeletal head and neck Overall: cervical spine benign 02/18/2013 None Full Exam - General 1994 Neurologic gait Overall: no ataxia, no unsteadiness 02/18/2013 None Full Exam - General 1994 Neurologic cranial nerves Overall: crainial nerves 2 - 12 grossly intact 02/18/2013 None Full Exam - General 1994 Psychiatric orientation/consciousness Overall: oriented to person, place and time 02/18/2013 None Full Exam - General 1994 Psychiatric mood and affect Overall: normal mood and affect 02/18/2013 None Full Exam - General 1994 Psychiatric mood and affect Mood: happy 02/18/2013 None Full Exam - General 1994 Respiratory respiratory effort/rhythm Overall: no retractions 10/01/2012 None Full Exam - General 1994 Respiratory respiratory effort/rhythm Overall: normal rate 10/01/2012 None Full Exam - General 1994 Cardiovascular inspection of carotid pulses Overall: strong, bilaterally equal, no bruits 10/01/2012 None Full Exam - General 1994 Cardiovascular auscultation of heart Overall: regular rate 10/01/2012 None Full Exam - General 1994 Cardiovascular auscultation of heart Overall: normal heart sounds 10/01/2012 None Full Exam - General 1994 Cardiovascular auscultation of heart Overall: no murmurs 10/01/2012 None Full Exam - General 1994 Abdomen abdominal exam Overall: no tenderness 10/01/2012 None Full Exam - General 1994 Abdomen abdominal exam Overall: normal bowel sounds 10/01/2012 None Full Exam - General 1994 Musculoskeletal spine, ribs and pelvis Overall: good posture 10/01/2012 None Full Exam - General 1994 Musculoskeletal head and neck Overall: head atraumatic 10/01/2012 None Full Exam - General 1994 Musculoskeletal head and neck Overall: cervical spine benign 10/01/2012 None Full Exam - General 1994 Neurologic gait Overall: no ataxia, no unsteadiness 10/01/2012 None Full Exam - General 1994 Neurologic cranial nerves Overall: crainial nerves 2 - 12 grossly intact 10/01/2012 None Full Exam - General 1994 Psychiatric orientation/consciousness Overall: oriented to person, place and time 10/01/2012 None Full Exam - General 1994 Constitutional general appearance Overall: well developed 10/01/2012 None Full Exam - General 1994 Constitutional general appearance Overall: in no acute distress 10/01/2012 None Full Exam - General 1994 Constitutional general appearance Overall: well nourished 10/01/2012 None Full Exam - General 1994 Eyes pupils and irises Overall: pupils equal, round, reactive to light and accomodation 10/01/2012 None Full Exam - General 1994 Ears/Nose/Throat otoscopic exam Overall: external auditory canals clear 10/01/2012 None Full Exam - General 1994 Ears/Nose/Throat otoscopic exam Overall: tympanic membranes clear 10/01/2012 None Full Exam - General 1994 Ears/Nose/Throat oral cavity/pharynx/larynx Overall: oral mucosa clear 10/01/2012 None Full Exam - General 1994 Ears/Nose/Throat oral cavity/pharynx/larynx Overall: oropharyngeal mucosa clear 10/01/2012 None Full Exam - General 1995 Ears/Nose/Throat oral cavity/pharynx/larynx Overall: no masses 10/01/2012 None Full Exam - General 1994 Respiratory auscultation Overall: breath sounds clear bilaterally 10/01/2012 None Full Exam - General 1994 Psychiatric mood and affect Overall: normal mood and affect 10/01/2012 None Full Exam - General 1994 Psychiatric mood and affect Mood: happy 10/01/2012 None Full Exam - General 1994 Musculoskeletal spine, ribs and pelvis Palpation: a normal exam 10/01/2012 previous left inner thigh tenderness resolved. Full Exam - General 1994 Constitutional general appearance Overall: well developed 05/18/2012 None Full Exam - General 1994 Constitutional general appearance Overall: in no acute distress 05/18/2012 None Full Exam - General 1994 Constitutional general appearance Overall: well nourished 05/18/2012 None Full Exam - General 1994 Eyes pupils and irises Overall: pupils equal, round, reactive to light and accomodation 05/18/2012 None Full Exam - General 1994 Ears/Nose/Throat otoscopic exam Overall: external auditory canals clear 05/18/2012 None Full Exam - General 1994 Ears/Nose/Throat otoscopic exam Overall: tympanic membranes clear 05/18/2012 None Full Exam - General 1994 Ears/Nose/Throat oral cavity/pharynx/larynx Overall: oral mucosa clear 05/18/2012 None Full Exam - General 1994 Ears/Nose/Throat oral cavity/pharynx/larynx Overall: oropharyngeal mucosa clear 05/18/2012 None Full Exam - General 1994 Ears/Nose/Throat oral cavity/pharynx/larynx Overall: no masses 05/18/2012 None Full Exam - General 1994 Respiratory auscultation Overall: breath sounds clear bilaterally 05/18/2012 None Full Exam - General 1994 Respiratory respiratory effort/rhythm Overall: no retractions 05/18/2012 None Full Exam - General 1994 Respiratory respiratory effort/rhythm Overall: normal rate 05/18/2012 None Full Exam - General 1994 Cardiovascular auscultation of heart Overall: regular rate 05/18/2012 None Full Exam - General 1994 Cardiovascular auscultation of heart Overall: normal heart sounds 05/18/2012 None Full Exam - General 1994 Cardiovascular auscultation of heart Overall: no murmurs 05/18/2012 None Full Exam - General 1994 Cardiovascular inspection of carotid pulses Overall: strong, bilaterally equal, no bruits 05/18/2012 None Full Exam - General 1994 Abdomen abdominal exam Overall: no tenderness 05/18/2012 None Full Exam - General 1994 Abdomen abdominal exam Overall: normal bowel sounds 05/18/2012 None Full Exam - General 1994 Musculoskeletal head and neck Overall: head atraumatic 05/18/2012 None Full Exam - General 1994 Musculoskeletal head and neck Overall: cervical spine benign 05/18/2012 None Full Exam - General 1994 Musculoskeletal spine, ribs and pelvis Overall: good posture 05/18/2012 None Full Exam - General 1994 Neurologic gait Overall: no ataxia, no unsteadiness 05/18/2012 None Full Exam - General 1994 Neurologic cranial nerves Overall: crainial nerves 2 - 12 grossly intact 05/18/2012 None Full Exam - General 1994 Psychiatric orientation/consciousness Overall: oriented to person, place and time 05/18/2012 None Full Exam - General 1994 Psychiatric mood and affect Overall: normal mood and affect 05/18/2012 None Full Exam - General 1994 Psychiatric mood and affect Mood: happy 05/18/2012 None Full Exam - General 1995 Ears/Nose/Throat oral cavity/pharynx/larynx Overall: oral mucosa clear 02/11/2012 None Full Exam - General 1995 Ears/Nose/Throat oral cavity/pharynx/larynx Overall: oropharyngeal mucosa clear 02/11/2012 None Full Exam - General 1994 Ears/Nose/Throat oral cavity/pharynx/larynx Overall: no masses 02/11/2012 None Full Exam - General 1994 Respiratory auscultation Overall: breath sounds clear bilaterally 02/11/2012 None Full Exam - General 1994 Respiratory respiratory effort/rhythm Overall: no retractions 02/11/2012 None Full Exam - General 1994 Respiratory respiratory effort/rhythm Overall: normal rate 02/11/2012 None Full Exam - General 1994 Cardiovascular auscultation of heart Overall: regular rate 02/11/2012 None Full Exam - General 1994 Cardiovascular auscultation of heart Overall: normal heart sounds 02/11/2012 None Full Exam - General 1994 Cardiovascular auscultation of heart Overall: no murmurs 02/11/2012 None Full Exam - General 1994 Cardiovascular inspection of carotid pulses Overall: strong, bilaterally equal, no bruits 02/11/2012 None Full Exam - General 1994 Abdomen abdominal exam Overall: no tenderness 02/11/2012 None Full Exam - General 1994 Abdomen abdominal exam Overall: normal bowel sounds 02/11/2012 None Full Exam - General 1994 Musculoskeletal head and neck Overall: head atraumatic 02/11/2012 None Full Exam - General 1994 Constitutional general appearance Overall: well developed 02/11/2012 None Full Exam - General 1994 Constitutional general appearance Overall: in no acute distress 02/11/2012 None Full Exam - General 1994 Constitutional general appearance Overall: well nourished 02/11/2012 None Full Exam - General 1994 Eyes pupils and irises Overall: pupils equal, round, reactive to light and accomodation 02/11/2012 None Full Exam - General 1994 Ears/Nose/Throat otoscopic exam Overall: external auditory canals clear 02/11/2012 None Full Exam - General 1995 Ears/Nose/Throat otoscopic exam Overall: tympanic membranes clear 02/11/2012 None Full Exam - General 1995 Musculoskeletal head and neck Overall: cervical spine benign 02/11/2012 None Full Exam - General 1995 Musculoskeletal spine, ribs and pelvis Overall: good posture 02/11/2012 None Full Exam - General 1995 Neurologic gait Overall: no ataxia, no unsteadiness 02/11/2012 None Full Exam - General 1995 Neurologic cranial nerves Overall: crainial nerves 2 - 12 grossly intact 02/11/2012 None Full Exam - General 1995 Psychiatric orientation/consciousness Overall: oriented to person, place and time 02/11/2012 None Full Exam - General 1995 Psychiatric mood and affect Overall: normal mood and affect 02/11/2012 None Full Exam - General 1995 Psychiatric mood and affect Mood: happy 02/11/2012 None Full Exam - General 1995 Genitourinary urethra Overall: no masses 02/11/2012 None Full Exam - General 1994 Genitourinary cervix Overall: surgically absent 02/11/2012 None Full Exam - General 1994 Genitourinary labia and vagina Labia: no lesions present 02/11/2012 None Full Exam - General 1994 Genitourinary labia and vagina Vaginal discharge: white 02/11/2012 the vaginal cuff had irri tation of the tissue, there was a distinct change in the surface of the vagina at the region of the cuff from normal pink mucosa to an irritated beefy appearance in a roughly 3.5 cm x 4.5 cm oval region Full Exam - General 1994 Psychiatric orientation/consciousness Overall: oriented to person, place and time 01/14/2012 None Full Exam - General 1994 Psychiatric mood and affect Mood: happy 01/14/2012 None Full Exam - General 1994 Psychiatric mood and affect Overall: normal mood and affect 01/14/2012 None Full Exam - General 1994 Neurologic gait Overall: no ataxia, no unsteadiness 01/14/2012 None Full Exam - General 1994 Neurologic cranial nerves Overall: crainial nerves 2 - 12 grossly intact 01/14/2012 None Full Exam - General 1994 Musculoskeletal head and neck Overall: cervical spine benign 01/14/2012 None Full Exam - General 1994 Musculoskeletal head and neck Overall: head atraumatic 01/14/2012 None Full Exam - General 1994 Musculoskeletal spine, ribs and pelvis Overall: good posture 01/14/2012 None Full Exam - General 1994 Abdomen abdominal exam Overall: no tenderness 01/14/2012 None Full Exam - General 1994 Abdomen abdominal exam Overall: normal bowel sounds 01/14/2012 None Full Exam - General 1994 Cardiovascular auscultation of heart Overall: regular rate 01/14/2012 None Full Exam - General 1994 Cardiovascular auscultation of heart Overall: normal heart sounds 01/14/2012 None Full Exam - General 1994 Cardiovascular auscultation of heart Overall: no murmurs 01/14/2012 None Full Exam - General 1994 Cardiovascular inspection of carotid pulses Overall: strong, bilaterally equal, no bruits 01/14/2012 None Full Exam - General 1994 Constitutional general appearance Overall: well nourished 01/14/2012 None Full Exam - General 1994 Constitutional general appearance Overall: well developed 01/14/2012 None Full Exam - General 1994 Constitutional general appearance Overall: in no acute distress 01/14/2012 None Full Exam - General 1994 Respiratory auscultation Overall: breath sounds clear bilaterally 01/14/2012 None Full Exam - General 1994 Respiratory respiratory effort/rhythm Overall: normal rate 01/14/2012 None Full Exam - General 1994 Respiratory respiratory effort/rhythm Overall: no retractions 01/14/2012 None Full Exam - General 1994 Ears/Nose/Throat otoscopic exam Overall: tympanic membranes clear 01/14/2012 None Full Exam - General 1994 Ears/Nose/Throat otoscopic exam Overall: external auditory canals clear 01/14/2012 None Full Exam - General 1994 Ears/Nose/Throat oral cavity/pharynx/larynx Overall: oropharyngeal mucosa clear 01/14/2012 None Full Exam - General 1994 Ears/Nose/Throat oral cavity/pharynx/larynx Overall: no masses 01/14/2012 None Full Exam - General 1994 Ears/Nose/Throat oral cavity/pharynx/larynx Overall: oral mucosa clear 01/14/2012 None Full Exam - General 1994 Eyes pupils and irises Overall: pupils equal, round, reactive to light and accomodation 01/14/2012 None Procedures Procedure Codes Date THER/PROPH/DIAG INJ SC/IM CPT-4: 16047 06/24/2019 TRIAMCINOLONE ACET I [place] NOS CPT-4: J3301 06/24/2019 PPPS, SUBSEQ VISIT CPT- 4: G0439 11/04/2016 TRIAMCINOLONE ACET I [place] NOS CPT-4: J3301 09/03/2016 URINALYSIS NONAUTO W /O SCOPE CPT-4: 91481 06/23/2015 TRIAMCINOLONE ACET I [place] NOS CPT-4: J3301 03/28/2015 FOOT EXAM PERFORMED SNOMED CT: 44334357 CPT-4: 2028F 12/20/2013 PRESCRIP TRANSMIT A ERX SY CPT-4: G8553 10/25/2013 PRESCRIP TRANSMIT A ERX SY CPT-4: G8553 10/01/2012 URINALYSIS NONAUTO W /O SCOPE CPT-4: 66324 02/11/2012 PRESCRIP TRANSMIT A ERX SY CPT-4: G8553 02/11/2012 Vital Signs Date Vital 06/30/2019 Blood Pressure 1: 140/68 Code: 8480-6 BMI: 34.4 Code: 84533-7 Heart Rate 1: 73 bpm Height: 5'3" SpO2: 97% Weight: 194 lbs 06/24/2019 Blood Pressure 1: 118/74 Code: 8480-6 BMI: 34.2 Code: 14848-9 Heart Rate 1: 73 bpm Height: 5'3" SpO2: 98% Weight: 193 lbs 04/21/2019 Blood Pressure 1: 150/72 Code: 8480-6 BMI: 34.9 Code: 62065-4 Heart Rate 1: 81 bpm Height: 5'3" SpO2: 98% Weight: 197 lbs 02/17/2019 Blood Pressure 1: 140/72 Code: 8480-6 Heart Rate 1: 82 bpm Height: SpO2: 97% Temperature: 36.8 (C ) / 98.2 (F) Weight: 08/27/2018 Blood Pressure 1: 150/72 Code: 8480-6 BMI: 33.8 Code: 60747-6 Heart Rate 1: 77 bpm Height: 5'3" SpO2: 98% Weight: 191 lbs 02/24/2018 Blood Pressure 1: 140/72 Code: 8480-6 BMI: 33.5 Code: 94821-0 Heart Rate 1: 78 bpm Height: 5'3" SpO2: 98% Weight: 189 lbs 11/03/2017 Blood Pressure 1: 140/72 Code: 8480-6 BMI: 33.2 Code: 59262-6 Heart Rate 1: 71 bpm Height: 5'3" SpO2: 98% Weight: 187 lbs 8 oz 08/08/2017 Blood Pressure 1: 140/66 Code: 8480-6 BMI: 33.1 Code: 04373-8 Heart Rate 1: 73 bpm Height: 5'3" SpO2: 97% Weight: 187 lbs 07/10/2017 Blood Pressure 1: 144/74 Code: 8480-6 BMI: 33.5 Code: 38574-3 Heart Rate 1: 78 bpm Height: 5'3" SpO2: 94% Weight: 189 lbs 03/06/2017 Blood Pressure 1: 140/86 Code: 8480-6 BMI: 32.9 Code: 52181-1 Heart Rate 1: 68 bpm Height: 5'3" SpO2: 98% Weight: 186 lbs 03/04/2017 Blood Pressure 1: 136/82 Code: 8480-6 Heart Rate 1: 61 bpm Height: 5'3" SpO2: 97% Temperature: 36.6 (C ) / 97.8 (F) Weight: 11/04/2016 Blood Pressure 1: 146/76 Code: 8480-6 BMI: 34.7 Code: 01436-4 Heart Rate 1: 70 bpm Height: 5'3" SpO2: 97% Waist Measure (cm): 107 cm Weight: 196 lbs 10/23/2016 Blood Pressure 1: 148/78 Code: 8480-6 BMI: 34.7 Code: 06928-5 Heart Rate 1: 68 bpm Height: 5'3" SpO2: 97% Weight: 196 lbs 10/03/2016 Blood Pressure 1: 142/78 Code: 8480-6 BMI: 34.7 Code: 77682-6 Heart Rate 1: 72 bpm Height: 5'3" SpO2: 98% Weight: 196 lbs 09/03/2016 Blood Pressure 1: 128/88 Code: 8480-6 Heart Rate 1: 86 bpm SpO2: 96% 08/21/2016 Blood Pressure 1: 128/62 Code: 8480-6 BMI: 35.1 Code: 16659-0 Heart Rate 1: 80 bpm Height: 5'3" SpO2: 98% Weight: 198 lbs 07/24/2016 Blood Pressure 1: 150/86 Code: 8480-6 BMI: 34.4 Code: 20171-2 Heart Rate 1: 72 bpm Height: 5'3" SpO2: 97% Weight: 194 lbs 04/24/2016 Blood Pressure 1: 138/76 Code: 8480-6 BMI: 34.2 Code: 37961-7 Heart Rate 1: 71 bpm Height: 5'3" SpO2: 98% Weight: 193 lbs 01/18/2016 Blood Pressure 1: 140/72 Code: 8480-6 BMI: 33.4 Code: 33417-8 Heart Rate 1: 69 bpm Height: 5'3" SpO2: 98% Weight: 188 lbs 8 oz 12/21/2015 Blood Pressure 1: 158/78 Code: 8480-6 BMI: 33.3 Code: 97427-8 Heart Rate 1: 66 bpm Height: 5'3" SpO2: 98% Weight: 188 lbs 08/17/2015 Blood Pressure 1: 132/76 Code: 8480-6 BMI: 30.5 Code: 90826-9 Heart Rate 1: 66 bpm Height: 5'3" Respiratory Rate: 18 bpm SpO2: 97% Weight: 172 lbs 06/23/2015 Blood Pressure 1: 160/80 Code: 8480-6 Blood Pressure 2: 170/86 Code: 8480-6 BMI: 28.3 Code: 15622-4 Heart Rate 1: 96 bpm Height: 5'3" SpO2: 98% Temperature: 37.3 (C ) / 99.1 (F) Weight: 160 lbs 06/21/2015 Blood Pressure 1: 132/78 Code: 8480-6 Heart Rate 1: 106 bpm SpO2: 98% Temperature: 37.3 (C ) / 99.2 (F) Weight: 166 lbs 03/28/2015 Blood Pressure 1: 160/84 Code: 8480-6 Blood Pressure 2: 138/78 Code: 8480-6 BMI: 32.1 Code: 43318-9 Heart Rate 1: 86 bpm Height: 5'3" SpO2: 97% Weight: 181 lbs 07/07/2014 Blood Pressure 1: 138/82 Code: 8480-6 BMI: 32.6 Code: 09871-4 Heart Rate 1: 82 bpm Height: 5'3" SpO2: 96% Weight: 184 lbs 03/24/2014 Blood Pressure 1: 138/64 Code: 8480-6 BMI: 32.4 Code: 36502-2 Heart Rate 1: 72 bpm Height: 5'3" Weight: 183 lbs 01/20/2014 Blood Pressure 1: 149/69 Code: 8480-6 Blood Pressure 2: 170/82 Code: 8480-6 Heart Rate 1: 81 bpm Weight: 183 lbs 12/20/2013 Blood Pressure 1: 150/78 Code: 8480-6 BMI: 32.6 Code: 46416-6 Heart Rate 1: 76 bpm Height: 5'3" Weight: 184 lbs 10/25/2013 Blood Pressure 1: 167/80 Code: 8480-6 BMI: 33.3 Code: 43343-6 Heart Rate 1: 60 bpm Height: 5'3" Weight: 188 lbs 10/19/2013 Blood Pressure 1: 136/78 Code: 8480-6 BMI: 33.1 Code: 57118-6 Height: 5'3" Weight: 187 lbs 05/25/2013 Blood Pressure 1: 134/82 Code: 8480-6 BMI: 33.5 Code: 42814-0 Heart Rate 1: 80 bpm Height: 5'3" Weight: 189 lbs 02/18/2013 Blood Pressure 1: 158/88 Code: 8480-6 Blood Pressure 2: 158/90 Code: 8480-6 BMI: 33.7 Code: 20646-1 Heart Rate 1: 80 bpm Height: 5'3" Weight: 190 lbs 10/01/2012 Blood Pressure 1: 138/62 Code: 8480-6 Heart Rate 1: 76 bpm Weight: 184 lbs 05/18/2012 Blood Pressure 1: 150/82 Code: 8480-6 Blood Pressure 2: 136/84 Code: 8480-6 BMI: 32.1 Code: 42767-2 Heart Rate 1: 71 bpm Height: 5'3" SpO2: 98% Weight: 181 lbs 02/11/2012 Blood Pressure 1: 126/56 Code: 8480-6 Heart Rate 1: 68 bpm Respiratory Rate: 16 bpm Weight: 184 lbs 01/14/2012 Blood Pressure 1: 158/80 Code: 8480-6 BMI: 33.9 Code: 83388-3 Heart Rate 1: 60 bpm Height: 5'3" Respiratory Rate: 16 bpm Weight: 191 lbs 8 oz Functional Status No Functional Status data History of Present Illness Symptom Name Status Resu lt Effective Date Notes Quality chronic 06/30/2019 None Quality primary hypert ension 06/30/2019 None Onset and Resolution o ngoing 06/30/2019 None Onset of Symptom durin g adulthood 06/30/2019 None Blood Pressure Values patient checking blood pressure at home - did not bring in readings 06/30/2019 -Checks occasionally Severity mild 06/30/2019 None Alleviating Factors me dication 06/30/2019 None Pertinent Findings dec reased energy 06/30/2019 None Pertinent Findings Den ies edema 06/30/2019 None Quality non-insulin de pendent 06/30/2019 None Alleviating Factors di et only 06/30/2019 None Exacerbating Factors d iet 06/30/2019 None Pertinent Findings Den ies nausea 06/30/2019 None Onset and Resolution o ngoing 06/30/2019 None Alleviating Factors me dication 06/30/2019 None Test results HgbA1c le martin 6.7 06/30/2019 None Quality chronic 06/30/2019 None Quality chronic 06/30/2019 None Test results Pt checki ng blood glucose readings, did not bring results to clinic 06/30/2019 -Does not check very often Pertinent Findings dimarielos ziness 06/30/2019 this morning- ate a prote in bar and carrot cake Pertinent Findings dys pnea 06/30/2019 "some" Location-Major on the neck 06/24/2019 None Location-Head/Neck on both cheeks 06/24/2019 None Color red 06/24/2019 None Onset and Resolution s udden in onset 06/24/2019 None Onset of Symptom 5 day s ago 06/24/2019 None Quality primary hypert ension 04/21/2019 None Onset and Resolution o ngoing 04/21/2019 None Onset of Symptom durin g adulthood 04/21/2019 None Blood Pressure Values patient checking blood pressure at home - did not bring in readings 04/21/2019 -Checks occasionally Alleviating Factors me dication 04/21/2019 None Pertinent Findings dec reased energy 04/21/2019 None Pertinent Findings edema 04/21/2019 -has eaten more potato chips lately Quality non-insulin de pendent 04/21/2019 None Alleviating Factors di et only 04/21/2019 None Exacerbating Factors d iet 04/21/2019 None Pertinent Findings Den ies nausea 04/21/2019 None Quality chronic 04/21/2019 None Blood Pressure Values pt checking blood pressure - see scanned document 04/21/2019 None Severity mild 04/21/2019 None Quality NIDDM 04/21/2019 None Alleviating Factors diet 04/21/2019 None Onset and Resolution o ngoing 04/21/2019 None Alleviating Factors me dication 04/21/2019 None Location diffusely 02/17/2019 None Quality acute 02/17/2019 None Pertinent Findings Den ies fever 02/17/2019 None diabetic foot exam Quality chronic 08/27/2018 None diabetic foot exam Limitation on Activitie s allows weight bearing activity 08/27/2018 None diabetic foot exam Significant Medic al Conditions diabetes 08/27/2018 None diabetic foot exam Pertinent Findings pain with movement 08/27/2018 None hypertension Quality vera priya hypertension 02/24/2018 None hypertension Onset and Resolution ongoing 02/24/2018 None hypertension Onset of Symptom during adulthood 02/24/2018 None hypertension Alleviating Factors medication 02/24/2018 None diabetes mellitus Quality non-insulin dependent 02/24/2018 None diabetes mellitus Exacerbating Factors diet 02/24/2018 None hypertension Blood Pressure Values patient checking blood pressure at home - did not bring in readings 02/24/2018 -Checks occasionally hypertension Pertinent Findings dizziness 02/24/2018 "a little bit" hypertension Pertinent Findings dyspnea 02/24/2018 with activity- when she g ets around after her shower hypertension Pertinent Findings edema 02/24/2018 -has eaten more potato ch ips lately diabetes mellitus Test results Pt checking blood glucose readings, did not bring results to clinic 02/24/2018 None diabetes mellitus Glucose monitoring occasional glucose testing 02/24/2018 None diabetes mellitus Alleviating Factors diet only 02/24/2018 None hypertension Pertinent Findings decreased energy 02/24/2018 None diabetes mellitus Pertinent Findings Denies nausea 02/24/2018 None depression Quality chron ic 11/03/2017 None depression Onset and Resolution ongoing 11/03/2017 None depression Onset of Symptom during adulthood 11/03/2017 None depression Limitation on Activities does not limit activities 11/03/2017 None depression Frequency of Episodes decreasing 11/03/2017 states better with cymbal ta-not sleeping as much depression Triggers no k nown associated factors 11/03/2017 None depression Alleviating Factors medication 11/03/2017 None depression Pertinent Findings depressed mood 11/03/2017 None depression Pertinent Findings Denies helplessness 11/03/2017 None depression Pertinent Findings Denies hopelessness 11/03/2017 None muscle weakness Location in the proximal muscles 11/03/2017 None muscle weakness Onset and Resolution sudden in onset 11/03/2017 None muscle weakness Quality left-sided 11/03/2017 None muscle weakness Quality flaccid 11/03/2017 None muscle weakness Pertinent Findings Denies anxiety 11/03/2017 None muscle weakness Pertinent Findings Denies back pain 11/03/2017 None muscle weakness Pertinent Findings Denies fever 11/03/2017 None muscle weakness Pertinent Findings Denies muscle tenderness 11/03/2017 None muscle weakness Pertinent Findings Denies muscle swelling 11/03/2017 None muscle weakness Pertinent Findings Denies neck stiffness 11/03/2017 None muscle weakness Pertinent Findings Denies pain 11/03/2017 None muscle weakness Pertinent Findings Denies stiffness 11/03/2017 None muscle weakness Pertinent Findings Denies upper respiratory infection 11/03/2017 None medication follow up Additional Comments medication use 08/08/2017 None medication follow up Location oral intake 08/08/2017 None depression Quality chron ic 08/08/2017 None depression Onset and Resolution ongoing 08/08/2017 None depression Onset of Symptom during adulthood 08/08/2017 None depression Limitation on Activities does not limit activities 08/08/2017 None depression Frequency of Episodes decreasing 08/08/2017 states better with cymbal ta-not sleeping as much depression Triggers no k nown associated factors 08/08/2017 None depression Alleviating Factors medication 08/08/2017 None depression Pertinent Findings depressed mood 08/08/2017 None depression Pertinent Findings Denies helplessness 08/08/2017 None depression Pertinent Findings Denies hopelessness 08/08/2017 None hypertension Quality chr onic 07/10/2017 None hypertension Onset and Resolution ongoing 07/10/2017 None hypertension Onset of Symptom during adulthood 07/10/2017 None hypertension Blood Pressure Values pt checking blood pressure - see scanned document 07/10/2017 None hypertension Severity mi ld 07/10/2017 None hypertension Alleviating Factors medication 07/10/2017 None hypertension Pertinent Findings dizziness 07/10/2017 "not really" hypertension Pertinent Findings dyspnea 07/10/2017 "a little"- not as bad as she has been diabetes mellitus Quality NIDDM 07/10/2017 None diabetes mellitus Alleviating Factors diet 07/10/2017 None diabetes mellitus Exacerbating Factors diet 07/10/2017 None diabetes mellitus Pertinent Findings Denies nausea 07/10/2017 None hypothyroid Onset and Resolution ongoing 07/10/2017 None hypothyroid Alleviating Factors medication 07/10/2017 None hypertension Quality chr onic 03/06/2017 None hypertension Onset and Resolution ongoing 03/06/2017 None hypertension Onset of Symptom during adulthood 03/06/2017 None hypertension Blood Pressure Values pt checking blood pressure - see scanned document 03/06/2017 None hypertension Severity mi ld 03/06/2017 None hypertension Alleviating Factors medication 03/06/2017 None hypertension Pertinent Findings dizziness 03/06/2017 "not really" hypertension Pertinent Findings dyspnea 03/06/2017 "a little"- not as bad as she has been diabetes mellitus Quality NIDDM 03/06/2017 None diabetes mellitus Alleviating Factors diet 03/06/2017 None diabetes mellitus Exacerbating Factors diet 03/06/2017 None diabetes mellitus Pertinent Findings Denies nausea 03/06/2017 None hypothyroid Onset and Resolution ongoing 03/06/2017 None hypothyroid Alleviating Factors medication 03/06/2017 None rash Onset and Resolution ongoing 03/06/2017 None rash Onset of Symptom 4 weeks ago 03/06/2017 None rash Severity worsening 03/06/2017 None rash Triggers no known t riggers 03/06/2017 None rash Alleviating Factors no alleviating factors 03/06/2017 None rash Pertinent Findings itching 03/06/2017 None rash Pertinent Findings Denies tenderness 03/06/2017 None knee pain Location on th e right 03/06/2017 from hip on right side - down to knee - she hit a wheelbarrow with her thigh - her knee went down to the ground and she heard a "crack" in her thigh and felt a pain. knee pain Quality acute 03/06/2017 None knee pain Onset and Resolution sudden in onset 03/06/2017 None knee pain Onset of Symptom approx. 2 weeks ago 03/06/2017 None diabetes mellitus Test results Pt checking blood glucose at home, see scanned readings 03/06/2017 None diabetes mellitus Glucose monitoring occasional glucose testing 03/06/2017 -113 this morning rash Location-Head/Neck on both cheeks 03/06/2017 None rash Location-Head/Neck on the chin 03/06/2017 None rash Location-Head/Neck on the anterior neck 03/06/2017 None knee pain Alleviating Factors NSAID's 03/06/2017 (aleve) rash Location-Major on t he head 03/04/2017 None rash Location-Major on t he neck 03/04/2017 None rash Location-Head/Neck on both cheeks 03/04/2017 None rash Location-Head/Neck on the right cheek 03/04/2017 None rash Location-Head/Neck in the periorbital area 03/04/2017 None rash Location-Head/Neck on the left side of the jaw 03/04/2017 None rash Location-Head/Neck on the left side of the neck 03/04/2017 None rash Pertinent Findings Denies dizziness 03/04/2017 None rash Pertinent Findings Denies fever 03/04/2017 None rash Pertinent Findings Denies flushing 03/04/2017 None rash Pertinent Findings itching 03/04/2017 None rash Pertinent Findings Denies tenderness 03/04/2017 None rash Color erythematous 03/04/2017 None rash Onset and Resolution ongoing 03/04/2017 None rash Onset of Symptom 4 weeks ago 03/04/2017 None rash Frequency of Episodes unchanged 03/04/2017 None rash Severity worsening 03/04/2017 None rash Prior Treatments un responsive to treatment 03/04/2017 None rash Triggers no known t riggers 03/04/2017 None rash Alleviating Factors no alleviating factors 03/04/2017 None Annual Medicare Wellness Exam Aspirin Use yes 11/04/2016 None Annual Medicare Wellness Exam Blood Glucose (self reported) borderline high (100-125) 11/04/2016 None Annual Medicare Wellness Exam Blood Pressure (self reported) borderline (120/80 - 139/89) 016 None Annual Medicare Wellness Exam Choles terol (self reported) desireable (below 200) 11/04/2016 None Annual Medicare Wellness Exam Depres joaquim (last 6 months) most of the time 11/04/2016 None Annual Medicare Wellness Exam Depres joaquim or Hopelessness almost all of the time 11/04/2016 None Annual Medicare Wellness Exam Descri be Your Health fair 11/04/2016 None Annual Medicare Wellness Exam Exerci se Habits exercises 7 days per week 11/04/2016 None Annual Medicare Wellness Exam Exerci se Habits exercises 5 minutes per day 11/04/2016 None Annual Medicare Wellness Exam Handli ng Stress usually sahil effectively 11/04/2016 None Annual Medicare Wellness Exam Hemagl obin A-1C (self reported) borderline high (7) 11/04/2016 None Annual Medicare Wellness Exam Hours of Sleep 8 11/04/2016 None Annual Medicare Wellness Exam Intera ction with Friends yes 11/04/2016 None Annual Medicare Wellness Exam Intere sts & Pleasure some of the time 11/04/2016 None Annual Medicare Wellness Exam Life S atisfaction satisfied 11/04/2016 Non e Annual Medicare Wellness Exam Motor Vehicle Safety always fastens seat belt: y 11/04/20 16 None Annual Medicare Wellness Exam Motor Vehicle Safety rides with someone who has been drinking: n 11/04/2016 None Annual Medicare Wellness Exam Nutrition servings of fried food / high fat foods per day: 1 11/04/2016 None Annual Medicare Wellness Exam Nutrition servings of high fiber / whole grain per day: 1 11/04/2016 None Annual Medicare Wellness Exam Nutrition servings of vegetables / fruit per day: 1 11/04/2016 None Annual Medicare Wellness Exam Smokin g and Tobacco Use non smoker 11/04/2016 No ne Annual Medicare Wellness Exam Social & Emotional Support never 11/04/2016 None Annual Medicare Wellness Exam Stress almost all of the time 11/04/2016 None Annual Medicare Wellness Exam Sun Exposure protects skin when outdoors: y 11/04/2016 None hypertension Quality chr onic 10/23/2016 None hypertension Onset and Resolution ongoing 10/23/2016 None hypertension Onset of Symptom during adulthood 10/23/2016 None hypertension Blood Pressure Values pt checking blood pressure - see scanned document 10/23/2016 None hypertension Severity mi ld 10/23/2016 None hypertension Alleviating Factors medication 10/23/2016 None hypertension Pertinent Findings decreased energy 10/23/2016 None hypertension Pertinent Findings dizziness 10/23/2016 (occasional) hypertension Pertinent Findings dyspnea 10/23/2016 None hypertension Pertinent Findings Denies edema 10/23/2016 None diabetes mellitus Quality NIDDM 10/23/2016 None diabetes mellitus Alleviating Factors diet 10/23/2016 None diabetes mellitus Exacerbating Factors diet 10/23/2016 None diabetes mellitus Pertinent Findings Denies nausea 10/23/2016 None hypothyroid Onset and Resolution ongoing 10/23/2016 None hypothyroid Alleviating Factors medication 10/23/2016 None diabetes mellitus Test results Pt checking blood glucose at home, see scanned readings 10/23/2016 None diabetes mellitus Glucose monitoring occasional glucose testing 10/23/2016 None flank pain Location on t he right 10/03/2016 None flank pain Radiating the back 10/03/2016 None flank pain Quality const ant 10/03/2016 None flank pain Quality cramp ing 10/03/2016 None flank pain Quality squee zing 10/03/2016 None flank pain Onset and Resolution sudden in onset 10/03/2016 None flank pain Onset of Symptom 2 weeks ago 10/03/2016 None flank pain Frequency of Episodes daily 10/03/2016 None flank pain Triggers no k nown associated factors 10/03/2016 None lower leg pain Location on the right 10/03/2016 None lower leg pain Location on the left 10/03/2016 None lower leg pain Quality t ingling 10/03/2016 None lower leg pain Quality n umbness 10/03/2016 None lower leg pain Onset and Resolution sudden in onset 10/03/2016 None lower leg pain Onset of Symptom 1 months ago 10/03/2016 None lower leg pain Frequency of Episodes daily 10/03/2016 None lower leg pain Pertinent Findings pain with movement 10/03/2016 None lower leg pain Pertinent Findings numbness 10/03/2016 None lower leg pain Pertinent Findings stiffness 10/03/2016 None lower leg pain Pertinent Findings weakness 10/03/2016 None rash Location-Major on t he head 09/03/2016 under right eye rash Color pink 09/03/2016 None rash Pertinent Findings itching 09/03/2016 None rash Quality acute 09/03/2016 None rash Onset and Resolution ongoing 09/03/2016 None rash Onset of Symptom a couple days ago 09/03/2016 was outside and thinks sh e got bit by an insect-increased redness. Noticed a little hardness to area rash Severity mild 09/03/2016 None rash Prior Treatments pr eviously untreated 09/03/2016 None rash Triggers no known t riggers 09/03/2016 None hypertension Quality chr onic 08/21/2016 None hypertension Onset and Resolution ongoing 08/21/2016 None hypertension Onset of Symptom during adulthood 08/21/2016 None hypertension Blood Pressure Values pt checking blood pressure - see scanned document 08/21/2016 None hypertension Severity mi ld 08/21/2016 None hypertension Alleviating Factors medication 08/21/2016 None hypertension Pertinent Findings decreased energy 08/21/2016 None hypertension Pertinent Findings dizziness 08/21/2016 -had an episode the other morning when she got up hypertension Pertinent Findings dyspnea 08/21/2016 None hypertension Pertinent Findings edema 08/21/2016 -some- diabetes mellitus Quality NIDDM 08/21/2016 None diabetes mellitus Alleviating Factors diet 08/21/2016 None diabetes mellitus Exacerbating Factors diet 08/21/2016 None diabetes mellitus Pertinent Findings Denies nausea 08/21/2016 None fatigue Onset and Resolution ongoing 08/21/2016 None fatigue Limitation on Activities moderately limits activities 08/21/2016 None gait abnormality Quality unsteady 08/21/2016 None hypothyroid Onset and Resolution ongoing 08/21/2016 None hypothyroid Alleviating Factors medication 08/21/2016 None hypothyroid Pertinent Findings lethargy 08/21/2016 None gait abnormality Onset of Symptom months ago 08/21/2016 None diabetes mellitus Test results Pt checking blood glucose at home, see scanned readings 08/21/2016 None diabetes mellitus Glucose monitoring occasional glucose testing 08/21/2016 None hypertension Quality chr onic 07/24/2016 None hypertension Onset and Resolution ongoing 07/24/2016 None hypertension Onset of Symptom during adulthood 07/24/2016 None hypertension Blood Pressure Values pt checking blood pressure - see scanned document 07/24/2016 None hypertension Severity mi ld 07/24/2016 None hypertension Alleviating Factors medication 07/24/2016 None hypertension Pertinent Findings decreased energy 07/24/2016 None hypertension Pertinent Findings dizziness 07/24/2016 None hypertension Pertinent Findings Denies dyspnea 07/24/2016 None hypertension Pertinent Findings edema 07/24/2016 -some- diabetes mellitus Quality NIDDM 07/24/2016 None diabetes mellitus Quality stable 07/24/2016 None diabetes mellitus Alleviating Factors diet 07/24/2016 None diabetes mellitus Exacerbating Factors diet 07/24/2016 None diabetes mellitus Pertinent Findings Denies dyspnea 07/24/2016 None diabetes mellitus Pertinent Findings Denies nausea 07/24/2016 None hives (urticaria) Quality improving 07/24/2016 None hives (urticaria) Quality intermittent 07/24/2016 None hives (urticaria) Onset and Resolution ongoing 07/24/2016 None hives (urticaria) Onset of Symptom months ago 07/24/2016 since May 2015 hives (urticaria) Frequency of Episodes decreasing 07/24/2016 None hives (urticaria) Triggers no known triggers 07/24/2016 None hives (urticaria) Pertinent Findings itching 07/24/2016 None fatigue Onset and Resolution ongoing 07/24/2016 None fatigue Limitation on Activities moderately limits activities 07/24/2016 None diabetes mellitus Test results Pt checking blood glucose readings, did not bring results to clinic 07/24/2016 None diabetes mellitus Glucose monitoring occasional glucose testing 07/24/2016 None gait abnormality Quality unsteady 07/24/2016 None gait abnormality Onset of Symptom 1-2 months ago 07/24/2016 None hypothyroid Onset and Resolution ongoing 07/24/2016 None hypothyroid Alleviating Factors medication 07/24/2016 None hypothyroid Pertinent Findings lethargy 07/24/2016 None hypertension Quality chr onic 04/24/2016 None hypertension Onset and Resolution ongoing 04/24/2016 None hypertension Onset of Symptom during adulthood 04/24/2016 None hypertension Severity mi ld 04/24/2016 None hypertension Alleviating Factors medication 04/24/2016 None hypertension Pertinent Findings Denies dizziness 04/24/2016 None hypertension Pertinent Findings Denies dyspnea 04/24/2016 None diabetes mellitus Quality NIDDM 04/24/2016 None diabetes mellitus Quality stable 04/24/2016 None diabetes mellitus Alleviating Factors diet 04/24/2016 None diabetes mellitus Exacerbating Factors diet 04/24/2016 None hives (urticaria) Quality intermittent 04/24/2016 None hives (urticaria) Onset and Resolution ongoing 04/24/2016 None hives (urticaria) Onset of Symptom months ago 04/24/2016 since May 2015 hives (urticaria) Triggers no known triggers 04/24/2016 None hives (urticaria) Pertinent Findings itching 04/24/2016 None hypertension Blood Pressure Values pt checking blood pressure - see scanned document 04/24/2016 -Checks occasionally hypertension Pertinent Findings Denies edema 04/24/2016 None hypertension Pertinent Findings decreased energy 04/24/2016 None diabetes mellitus Test results Pt checking blood glucose at home, see scanned readings 04/24/2016 -Checks rarely- 111 this morning diabetes mellitus Glucose monitoring occasional glucose testing 04/24/2016 None diabetes mellitus Pertinent Findings Denies nausea 04/24/2016 None diabetes mellitus Pertinent Findings Denies dyspnea 04/24/2016 None diabetes mellitus Pertinent Findings Denies dizziness 04/24/2016 None hives (urticaria) Quality improving 04/24/2016 None hives (urticaria) Frequency of Episodes decreasing 04/24/2016 None fatigue Onset and Resolution ongoing 04/24/2016 None hypertension Quality chr onic 01/18/2016 None hypertension Onset and Resolution ongoing 01/18/2016 None hypertension Onset of Symptom during adulthood 01/18/2016 None hypertension Severity mi ld 01/18/2016 None hypertension Alleviating Factors medication 01/18/2016 None hypertension Pertinent Findings Denies dizziness 01/18/2016 None hypertension Pertinent Findings dyspnea 01/18/2016 with exertion diabetes mellitus Quality NIDDM 01/18/2016 None diabetes mellitus Quality stable 01/18/2016 None diabetes mellitus Alleviating Factors diet 01/18/2016 None diabetes mellitus Exacerbating Factors diet 01/18/2016 None hives (urticaria) Quality intermittent 01/18/2016 None hives (urticaria) Onset and Resolution ongoing 01/18/2016 None hives (urticaria) Onset of Symptom _ months ago 01/18/2016 since May 2015 hives (urticaria) Frequency of Episodes daily 01/18/2016 None hives (urticaria) Triggers no known triggers 01/18/2016 None hives (urticaria) Pertinent Findings itching 01/18/2016 None diabetes mellitus Glucose monitoring does not test 01/18/2016 -tested this morning- was 118- has not been hypertension Blood Pressure Values patient checking blood pressure at home - did not bring in readings 01/18/2016 checks occasionally hypertension Quality chr onic 12/21/2015 None hypertension Onset and Resolution ongoing 12/21/2015 None hypertension Onset of Symptom during adulthood 12/21/2015 None hypertension Severity mi ld 12/21/2015 None hypertension Alleviating Factors medication 12/21/2015 None hypertension Pertinent Findings Denies dizziness 12/21/2015 None hypertension Pertinent Findings dyspnea 12/21/2015 with exertion hypertension Blood Pressure Values pt checking blood pressure - see scanned document 12/21/2015 None diabetes mellitus Quality stable 12/21/2015 None diabetes mellitus Quality NIDDM 12/21/2015 None diabetes mellitus Test results Pt checking blood glucose at home, see scanned readings 12/21/2015 None diabetes mellitus Blood glucose levels between 60 and 120 12/21/2015 None diabetes mellitus Glucose monitoring occasional glucose testing 12/21/2015 None diabetes mellitus Alleviating Factors diet 12/21/2015 None diabetes mellitus Exacerbating Factors diet 12/21/2015 None hives (urticaria) Location-Major in a generalized area 12/21/2015 None hives (urticaria) Quality intermittent 12/21/2015 None hives (urticaria) Onset and Resolution ongoing 12/21/2015 None hives (urticaria) Onset of Symptom _ months ago 12/21/2015 since May 2015 hives (urticaria) Triggers no known triggers 12/21/2015 None hives (urticaria) Pertinent Findings itching 12/21/2015 None hives (urticaria) Severity improving 12/21/2015 None hives (urticaria) Frequency of Episodes daily 12/21/2015 None nosebleed Onset of Symptom 2 weeks ago 12/21/2015 None nosebleed Quality interm ittent 12/21/2015 None hypertension Quality chr onic 08/17/2015 None hypertension Onset and Resolution ongoing 08/17/2015 None hypertension Onset of Symptom during adulthood 08/17/2015 None hypertension Blood Pressure Values patient checking blood pressure at home - did not bring in readings 08/17/2015 None hypertension Pertinent Findings Denies dizziness 08/17/2015 None hypertension Alleviating Factors medication 08/17/2015 None hypertension Severity mi ld 08/17/2015 None hypertension Pertinent Findings Denies dyspnea 08/17/2015 None edema Location on both a nkles 06/23/2015 left worse than right edema Onset of Symptom 1 months ago 06/23/2015 since back surgery 05-29 edema Pertinent Findings back pain 06/23/2015 None edema Pertinent Findings dyspnea 06/23/2015 intermittent shortness of breath Onset of Symptom _ years ago 06/21/2015 2006 open heart surgery- having intermittent shortness of breath. Wore her out to get up and get ready to come here today shortness of breath Pertinent Findings cough 06/21/2015 None shortness of breath Pertinent Findings edema 06/21/2015 None shortness of breath Pertinent Findings back pain 06/21/2015 surgery on 05-29 shortness of breath Pertinent Findings weight loss 06/21/2015 None cough Onset of Symptom 1 months ago 06/21/2015 since Surgery, but has in termittent cough all the time anyway due to allergies cough Pertinent Findings dyspnea 06/21/2015 None cough Pertinent Findings sputum production 06/21/2015 white edema Location on both a nkles 06/21/2015 left worse than right edema Onset of Symptom 1 months ago 06/21/2015 since back surgery 05-29 edema Pertinent Findings back pain 06/21/2015 None edema Pertinent Findings dyspnea 06/21/2015 intermittent wound follow up Date of procedure 05/29/2015 06/21/[address] Curtis knutson- has incisions to be checked wound follow up Pertinent Findings pain 06/21/2015 back brace rubs incision on left side- told her incisions looked good wound follow up Pertinent Findings Denies fever 06/21/2015 None back pain Onset of Symptom 2-3 weeks ago 03/28/2015 None back pain Frequency of Episodes constant 03/28/2015 None back pain Exacerbating Factors rest 03/28/2015 sitting and driving is wo rse back pain Alleviating Factors activity 03/28/2015 standing and walking arou nd makes it better back pain Radiating down the right leg 03/28/2015 to right knee back pain Location in th e right lower back area 03/28/2015 None back pain Quality acute 03/28/2015 None back pain Onset and Resolution ongoing 03/28/2015 None back pain Limitation on Activities moderately limits activities 03/28/2015 None back pain Triggers activ ity 03/28/2015 None back pain Severity moder ate 03/28/2015 None back pain Initial treatment medication 03/28/2015 hydrocodone helps the mimi n diabetes mellitus Onset of Symptom onset as an adult 07/07/2014 None diabetes mellitus Quality non-insulin dependent 07/07/2014 None diabetes mellitus Severity mild 07/07/2014 None diabetes mellitus Nutrition ADA diet 07/07/2014 None diabetes mellitus Pertinent Findings Denies lethargy 07/07/2014 None diabetes mellitus Pertinent Findings Denies numbness 07/07/2014 None diabetes mellitus Test results Pt checking blood glucose at home, see scanned readings 07/07/2014 None diabetes mellitus Test results HgbA1c level 6.5 07/07/2014 None diabetes mellitus Glucose monitoring occasional glucose testing 07/07/2014 None diabetes mellitus Quality non-insulin dependent 03/24/2014 None diabetes mellitus Test results Pt checking blood glucose at home, see scanned readings 03/24/2014 states she is feeling well. states she has returned to cardiac rehab following stent diabetes mellitus Onset of Symptom onset as an adult 03/24/2014 None diabetes mellitus Severity mild 03/24/2014 None diabetes mellitus Nutrition ADA diet 03/24/2014 None diabetes mellitus Exercise minimal exercise 03/24/2014 None diabetes mellitus Pertinent Findings Denies lethargy 03/24/2014 None diabetes mellitus Pertinent Findings Denies numbness 03/24/2014 None diabetes mellitus Blood glucose levels between 60 and 120 03/24/2014 None diabetes mellitus Glucose monitoring occasional glucose testing 03/24/2014 None diabetes mellitus Test results Pt checking blood glucose at home, see scanned readings 01/20/2014 None diabetes mellitus Pertinent Findings Denies dizziness 01/20/2014 None diabetes mellitus Pertinent Findings Denies dyspnea 01/20/2014 None blood pressure followup Quality chronic 01/20/2014 None blood pressure followup Onset and Re solution ongoing 01/20/2014 None blood pressure followup Onset of Symptom during adulthood 01/20/2014 None blood pressure followup Blood Pressu re Values pt checking blood pressure - see scanned document 01/20/2014 None blood pressure followup Frequency of Episodes unchanged 01/20/2014 Non e blood pressure followup Triggers pt checking blood pressure - see scanned document 01/20/2014 None blood pressure followup Pertinent Findings decreased energy 01/20/2014 None blood pressure followup Pertinent Findings Denies dizziness 01/20/2014 None blood pressure followup Pertinent Findings Denies dyspnea 01/20/2014 None blood pressure followup Pertinent Findings Denies palpitations 01/20/2014 None blood pressure followup Pertinent Findings Denies tachycardia 01/20/2014 None diabetes mellitus Blood glucose levels between 60 and 120 01/20/2014 None diabetes mellitus Blood glucose levels greater than 120 01/20/2014 None diabetes mellitus Glucose monitoring daily 01/20/2014 None diabetes mellitus Alleviating Factors medication 01/20/2014 None diabetes mellitus Nutrition ADA diet 01/20/2014 None diabetes mellitus Exercise no exercise 01/20/2014 None diabetes mellitus Quality chronic 12/20/2013 None diabetes mellitus Test results Pt checking blood glucose readings, did not bring results to clinic 12/20/2013 None diabetes mellitus Severity mild 12/20/2013 pt states feet feel heavy hypertension Quality chr onic 12/20/2013 None hypertension Onset and Resolution ongoing 12/20/2013 None hypertension Blood Pressure Values patient checking blood pressure at home - did not bring in readings 12/20/2013 None back pain Location lumba r-sacral spine 12/20/2013 states was told she has a bulging disc by dr [email or web address] on clearance by dr saldana for surg diabetes mellitus Quality non-insulin dependent 12/20/2013 not taking any diabetic medication - pt had been on medication, but eventually stopped - due to renal function (metformin) and then due to pt's perception of side effects from januvia (not feeling well - fatigue, weakness, dizziness) diabetes mellitus Onset of Symptom onset as an adult 12/20/2013 None diabetes mellitus Blood glucose levels between 60 and 120 12/20/2013 None diabetes mellitus Glucose monitoring occasional glucose testing 12/20/2013 None diabetes mellitus Nutrition regular diet 12/20/2013 pt does not restrict her diet very stringently diabetes mellitus Exercise no exercise 12/20/2013 None diabetes mellitus Quality non-insulin dependent 10/25/2013 None diabetes mellitus Quality NIDDM 10/25/2013 None diabetes mellitus Quality worsening 10/25/2013 None diabetes mellitus Test results Pt checking blood glucose readings, did not bring results to clinic 10/25/2013 None diabetes mellitus Glucose monitoring occasional glucose testing 10/25/2013 None diabetes mellitus Pertinent Findings Denies dizziness 10/25/2013 None diabetes mellitus Pertinent Findings Denies dyspnea 10/25/2013 None diabetes mellitus Pertinent Findings Denies nausea 10/25/2013 None diabetes mellitus Pertinent Findings Denies vomiting 10/25/2013 None diabetes mellitus Alleviating Factors medication 10/25/2013 None diabetes mellitus Nutrition regular diet 10/25/2013 None diabetes mellitus Exercise no exercise 10/25/2013 None diabetes mellitus Onset of Symptom onset as an adult 10/25/2013 None diabetes mellitus Test results Pt checking blood glucose at home, see scanned readings 10/19/2013 but doesn''t check regularly hypertension Quality chr onic 10/19/2013 None hypertension Onset and Resolution ongoing 10/19/2013 None hypertension Blood Pressure Values patient checking blood pressure at home - did not bring in readings 10/19/2013 None hypertension Alleviating Factors medication 10/19/2013 None hypertension Pertinent Findings Denies dizziness 10/19/2013 None hypertension Pertinent Findings Denies dyspnea 10/19/2013 None diabetes mellitus Quality non-insulin dependent 10/19/2013 on no diabetic meds diabetes mellitus Nutrition regular diet 10/19/2013 None diabetes mellitus Pertinent Findings Denies dehydration 10/19/2013 None diabetes mellitus Pertinent Findings dizziness 10/19/2013 None diabetes mellitus Pertinent Findings lethargy 10/19/2013 None diabetes mellitus Pertinent Findings Denies nausea 10/19/2013 None diabetes mellitus Pertinent Findings Denies vomiting 10/19/2013 None hypertension Onset of Symptom during adulthood 10/19/2013 None hypertension Severity mi ld 10/19/2013 None diabetes mellitus Quality non-insulin dependent 05/25/2013 None diabetes mellitus Quality NIDDM 05/25/2013 None diabetes mellitus Quality stable 05/25/2013 None diabetes mellitus Test results Pt checking blood glucose readings, did not bring results to clinic 05/25/2013 None diabetes mellitus Blood glucose levels between 60 and 120 05/25/2013 None diabetes mellitus Glucose monitoring occasional glucose testing 05/25/2013 None diabetes mellitus Pertinent Findings Denies numbness 05/25/2013 None diabetes mellitus Pertinent Findings Denies tingling 05/25/2013 None diabetes mellitus Pertinent Findings Denies dizziness 05/25/2013 None diabetes mellitus Pertinent Findings Denies dyspnea 05/25/2013 None hypertension Quality chr onic 05/25/2013 None hypertension Quality sta ble 05/25/2013 None hypertension Blood Pressure Values patient checking blood pressure at home - did not bring in readings 05/25/2013 None hypertension Alleviating Factors diet changes 05/25/2013 None hypertension Exacerbating Factors change in dietary habits 05/25/2013 None hypertension Pertinent Findings Denies tachycardia 05/25/2013 None hypertension Pertinent Findings Denies palpitations 05/25/2013 None hypertension Pertinent Findings Denies orthostatic hypotension 05/25/2013 None hypertension Pertinent Findings Denies dizziness 05/25/2013 None hypertension Pertinent Findings Denies dyspnea 05/25/2013 None hypertension Pertinent Findings Denies edema 05/25/2013 None diabetes mellitus Quality non-insulin dependent 02/18/2013 None diabetes mellitus Test results Pt checking blood glucose readings, did not bring results to clinic 02/18/2013 None diabetes mellitus Glucose monitoring occasional glucose testing 02/18/2013 not daily diabetes mellitus Nutrition regular diet 02/18/2013 None diabetes mellitus Pertinent Findings Denies dehydration 02/18/2013 None diabetes mellitus Pertinent Findings dizziness 02/18/2013 None diabetes mellitus Pertinent Findings lethargy 02/18/2013 None diabetes mellitus Pertinent Findings Denies vomiting 02/18/2013 None diabetes mellitus Pertinent Findings Denies nausea 02/18/2013 None hypertension Pertinent Findings decreased energy 02/18/2013 None hypertension Pertinent Findings dizziness 02/18/2013 None hypertension Blood Pressure Values patient checking blood pressure at home - did not bring in readings 02/18/2013 occasionaly hypertension Onset and Resolution ongoing 02/18/2013 None hypertension Alleviating Factors medication 02/18/2013 None hypertension Pertinent Findings orthostatic hypotension 02/18/2013 None hypertension Pertinent Findings tachycardia 02/18/2013 None diabetes mellitus Onset of Symptom onset as an adult 02/18/2013 None hip pain Location on the left 10/01/2012 None hip pain Onset of Symptom 1 months ago 10/01/2012 None skin lesion Quality scab bed 10/01/2012 None skin lesion Quality enla rging 10/01/2012 None skin lesion Onset and Resolution ongoing 10/01/2012 None skin lesion Onset of Symptom 6 months ago 10/01/2012 None hip pain Quality improvi ng 10/01/2012 None hip pain Severity mild 10/01/2012 None hip pain Significant Medical Conditions advancing age 1110/01/2012 None diabetes mellitus Alleviating Factors diet 05/18/2012 None diabetes mellitus Onset of Symptom onset as an adult 05/18/2012 None diabetes mellitus Alleviating Factors medication 05/18/2012 None diabetes mellitus Quality chronic 05/18/2012 None diabetes mellitus Quality non-insulin dependent 05/18/2012 None obesity Alleviating Factors medication 05/18/2012 None obesity Alleviating Factors healthy food choices 05/18/2012 None obesity Exacerbating Factors poor food choices 05/18/2012 None obesity Frequency of Episodes unchanged 05/18/2012 None obesity Location diffuse ly 05/18/2012 None obesity Onset and Resolution ongoing 05/18/2012 None diabetes mellitus Severity mild 05/18/2012 None diabetes mellitus Test results Pt checking blood glucose at home, see scanned readings 05/18/2012 None diabetes mellitus Blood glucose levels between 60 and 120 05/18/2012 None diabetes mellitus Nutrition regular diet 05/18/2012 None diabetes mellitus Exercise minimal exercise 05/18/2012 None obesity Triggers change in diet 05/18/2012 None diabetes mellitus Test results Pt not checking blood glucose readings at home 02/11/2012 None 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 had a doseage change want s to talk diabetes mellitus Severity mild 02/11/2012 None diabetes mellitus Onset of Symptom onset as an adult 02/11/2012 None diabetes mellitus Glucose monitoring does not test 02/11/2012 None diabetes mellitus Alleviating Factors diet 02/11/2012 None diabetes mellitus Exacerbating Factors diet 02/11/2012 None diabetes mellitus Quality non-insulin dependent 02/11/2012 None diabetes mellitus Pertinent Findings Denies dizziness 02/11/2012 None diabetes mellitus Pertinent Findings Denies lethargy 02/11/2012 None diabetes mellitus Pertinent Findings Denies nausea 02/11/2012 None hypothyroid Severity mil d with subclinical signs 02/11/2012 None hypothyroid Triggers no known associated factors 02/11/2012 None hypothyroid Alleviating Factors medication 02/11/2012 None hypothyroid Pertinent Findings Denies coarse hair 02/11/2012 None hypothyroid Pertinent Findings Denies coarse skin 02/11/2012 None hemorrhoids Onset of Symptom 1 months ago 01/14/2012 None hemorrhoids Severity mild 01/14/2012 None hemorrhoids Quality blee ding 01/14/2012 pt states that she has a small amount of blood on the toilet paper when she wipes weight gain/obesity Location on the abdomen 01/14/2012 None Advance Directives No Advance Directive data Encounters Encounter Performer Loca tion Codes Date ([id number]) 61389 EST. P ATIENT, LEVEL IV Diagnosis: Essential (primary) hypertension[ICD10: I10] Diagnosis: Type 2 diabetes mellitus without complications[ICD10: E11.9] Diagnosis: Other specified hypothyroidism[ICD10: E03.8] Carmelina Ott MD, [facility] CPT-4: 26076 06/30/2019 ([id number]) 24273 EST. P ATIENT, LEVEL III Diagnosis: Rash and other nonspecific skin eruption[ICD10: R21] Diagnosis: Allergic contact dermatitis due to cosmetics[ICD10: L23.2] Carmelina Ott MD, [facility] CPT-4: 61205 06/24/2019 ([id number]) 38173 EST. P ATIENT, LEVEL IV Diagnosis: Essential (primary) hypertension[ICD10: I10] Diagnosis: Type 2 diabetes mellitus without complications[ICD10: E11.9] Diagnosis: Atrophy of thyroid (acquired)[ICD10: E03.4] Diagnosis: Mixed hyperlipidemia[ICD10: E78.2] Carmelina Ott MD, [facility] CPT- 4: 24489 04/21/2019 63098 EST. PATIENT, LEVEL III Diagnosis: Acute laryngopharyngitis[ICD10: J06.0] Diagnosis: Other allergic rhinitis[ICD10: J30.89] Luz Ott MD, [facility] CPT-4: 61708 02/17/2019 ([id number]) 37175 EST. P ATIENT, LEVEL IV Diagnosis: Type 2 diabetes mellitus with diabetic polyneuropathy[ICD10: E11.42] Diagnosis: Pain in left leg[ICD10: M79.605] Diagnosis: Pain in right leg[ICD10: M79.604] Carmelina Ott MD, [facility] CPT-4: 72482 08/27/2018 ([id number]) Miscellaneou s no charge Diagnosis: Other fatigue[ICD10: R53.83] Carmelina Ott MD, [facility] CPT-4: 28987 06/17/2018 ([id number]) 52862 EST. P ATIENT, LEVEL IV Diagnosis: Essential (primary) hypertension[ICD10: I10] Diagnosis: Hypothyroidism, unspecified[ICD10: E03.9] Diagnosis: Type 2 diabetes mellitus without complications[ICD10: E11.9] Diagnosis: Chronic pain syndrome[ICD10: G89.4] Diagnosis: Vitamin B12 deficiency anemia, unspecified[ICD10: D51.9] Diagnosis: Unsteadiness on feet[ICD10: R26.81] Nicki Ott MD, [facility] CPT-4: 67894 02/24/2018 ([id number]) 29212 EST. P ATIENT, LEVEL IV Diagnosis: Type 2 diabetes mellitus without complications[ICD10: E11.9] Diagnosis: Hypothyroidism, unspecified[ICD10: E03.9] Diagnosis: Essential (primary) hypertension[ICD10: I10] Diagnosis: Pain in left shoulder[ICD10: M25.512] Nicki Ott MD, [facility] CPT-4: 68962 11/03/2017 ([id number]) 04457 EST. P ATIENT, LEVEL III Diagnosis: Essential (primary) hypertension[ICD10: I10] Diagnosis: Major depressive disorder, recurrent, mild[ICD10: F33.0] Diagnosis: Other allergic rhinitis[ICD10: J30.89] Nicki Ott MD, [facility] CPT-4: 11300 08/08/2017 ([id number]) 03296 EST. P ATIENT, LEVEL IV Diagnosis: Hypothyroidism, unspecified[ICD10: E03.9] Diagnosis: Major depressive disorder, recurrent, mild[ICD10: F33.0] Diagnosis: Myalgia[ICD10: M79.1] Diagnosis: Chronic pain syndrome[ICD10: G89.4] Diagnosis: Essential (primary) hypertension[ICD10: I10] Nicki Ott MD, [facility] CPT-4: 67901 07/10/2017 ([id number]) 97305 EST. P ATIENT, LEVEL IV Diagnosis: Essential (primary) hypertension[ICD10: I10] Diagnosis: Atrophy of thyroid (acquired)[ICD10: E03.4] Diagnosis: Sacroiliitis, not elsewhere classified[ICD10: M46.1] Diagnosis: Mixed hyperlipidemia[ICD10: E78.2] Carmelina Ott MD, [facility] CPT- 4: 05437 03/06/2017 ([id number]) 20640 EST. P ATIENT, LEVEL II Diagnosis: Rash and other nonspecific skin eruption[ICD10: R21] Nicki Ott MD, [facility] CPT-4: 58738 03/04/2017 ([id number]) 62019 EST. P ATIENT, LEVEL IV Diagnosis: Type 2 diabetes mellitus without complications[ICD10: E11.9] Diagnosis: Essential (primary) hypertension[ICD10: I10] Diagnosis: Atrophy of thyroid (acquired)[ICD10: E03.4] Carmelina Ott MD, C CPT-4: 30100 10/23/2016 85039 EST. PATIENT, LEVEL III Diagnosis: Other specified hypothyroidism[ICD10: E03.8] Diagnosis: Other specified anemias[ICD10: D64.89] Diagnosis: Pain in thoracic spine[ICD10: M54.6] Luz Ott MD, [facility] CPT- 4: 02030 10/03/2016 08511 EST. PATIENT, LEVEL II Diagnosis: Insect bite (nonvenomous) of other part of head, initial encounter[ICD10: S00.86XA] Nicki Ott MD, [facility] CPT-4: 09176 09/03/2016 ([id number]) 49528 EST. P ATIENT, LEVEL IV Diagnosis: Type 2 diabetes mellitus without complications[ICD10: E11.9] Diagnosis: Hypothyroidism, unspecified[ICD10: E03.9] Diagnosis: Essential (primary) hypertension[ICD10: I10] Carmelina Ott MD, [facility] CPT-4: 29158 08/21/2016 ([id number]) 95976 EST. P ATIENT, LEVEL IV Diagnosis: Essential (primary) hypertension[ICD10: I10] Diagnosis: Supraventricular tachycardia[ICD10: I47.1] Diagnosis: Other fatigue[ICD10: R53.83] Carmelina Ott MD, [facility] CPT-4: 46737 07/24/2016 ([id number]) 55859 EST. P ATIENT, LEVEL IV Diagnosis: Type 2 diabetes mellitus without complications[ICD10: E11.9] Diagnosis: Essential (primary) hypertension[ICD10: I10] Diagnosis: Hypothyroidism, unspecified[ICD10: E03.9] Carmelina Ott MD, C CPT-4: 04394 04/24/2016 ([id number]) 02103 EST. P ATIENT, LEVEL IV Diagnosis: Type 2 diabetes mellitus without complications[ICD10: E11.9] Diagnosis: Type 2 diabetes mellitus with diabetic polyneuropathy[ICD10: E11.42] Carmelina Ott MD, [facility] CPT-4: 89787 01/18/2016 ([id number]) 69815 EST. 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 P ATIENT, LEVEL IV Diagnosis: Hypothyroidism, unspecified[ICD10: E03.9] Diagnosis: Essential (primary) hypertension[ICD10: I10] Diagnosis: Urticaria, unspecified[ICD10: L50.9] Carmelina Ott MD, [facility] CPT-4: 99003 08/17/2015 ([id number]) Miscellaneou s no charge Diagnosis: ESSENTIAL HYPERTENSION[ICD9: 401.9] Diagnosis: Elevated temperature[ICD9: 780.60] Diagnosis: EDEMA[ICD9: 782.3] Katja Ott MD, [facility] CPT-4: 93117 06/23/2015 ([id number]) 60738 EST. P ATIENT, LEVEL IV Diagnosis: ESSENTIAL HYPERTENSION[ICD9: 401.9] Diagnosis: TACHYCARDIA[ICD9: 785.0] Diagnosis: Dyspnea[ICD9: 786.09] Katja Ott MD, [facility] CPT-4: 99433 06/21/2015 ([id number]) 32603 EST. P ATIENT, LEVEL III Diagnosis: Sacroiliitis[ICD9: 720.2] Diagnosis: LUMBAGO[ICD9: 724.2] Nicki Ott MD, [facility] CPT-4: 93670 03/28/2015 ([id number]) 71532 EST. P ATIENT, LEVEL IV Diagnosis: HYPOTHYROIDISM[ICD9: 244.9] Diagnosis: ESSENTIAL HYPERTENSION[ICD9: 401.9] Diagnosis: DIABETES TYPE II[ICD9: 250.00] Diagnosis: HYPERLIPIDEMIA[ICD9: 272.4] Diagnosis: Muscle ache[ICD9: 729.1] Carmelina Ott MD, [facility] CPT-4: 28808 07/07/2014 ([id number]) 45153 EST. P ATIENT, LEVEL IV Diagnosis: DIABETES TYPE II[SNOMED: 053782026] Diagnosis: ESSENTIAL HYPERTENSION[SNOMED: 77003227] Diagnosis: HYPOTHYROIDISM[ICD9: 244.9] Carmelina Ott MD, [facility] CPT-4: 53522 03/24/2014 ([id number]) 59274 EST. P ATIENT, LEVEL III Diagnosis: DIABETES TYPE II[SNOMED: 392025020] Diagnosis: ESSENTIAL HYPERTENSION[SNOMED: 28412894] Carmelina Ott MD, [facility] CPT-4: 50662 01/20/2014 ([id number]) 08105 EST. P ATIENT, LEVEL IV Diagnosis: DIABETES TYPE II[SNOMED: 186467610] Diagnosis: ESSENTIAL HYPERTENSION[SNOMED: 64828543] Diagnosis: Peripheral neuropathy, idiopathic[ICD9: 356.9] Camrelina Ott MD, [facility] CPT-4: 06022 12/20/2013 ([id number]) 89361 EST. P ATIENT, LEVEL IV Diagnosis: DIABETES TYPE II[SNOMED: 634788985] Diagnosis: ESSENTIAL HYPERTENSION[SNOMED: 18324961] Diagnosis: Dietary counseling and surveillance[ICD9: V65.3] Carmelina Ott MD, [facility] CPT-4: 11935 10/25/2013 ([id number]) 85293 EST. P ATIENT, LEVEL IV Diagnosis: DIABETES TYPE II[SNOMED: 375544852] Diagnosis: ESSENTIAL HYPERTENSION[SNOMED: 02343513] Diagnosis: HYPOTHYROIDISM[ICD9: 244.9] Carmelina Ott MD, [facility] CPT-4: 82960 10/19/2013 ([id number]) 62364 EST. P ATIENT, LEVEL IV Diagnosis: ESSENTIAL HYPERTENSION[SNOMED: 45271735] Diagnosis: DIABETES TYPE II[SNOMED: 052695359] Diagnosis: HYPOTHYROIDISM[ICD9: 244.9] Carmelina Ott MD, [facility] CPT-4: 37807 05/25/2013 ([id number]) 42858 EST. P ATIENT, LEVEL IV Diagnosis: DIABETES TYPE II[SNOMED: 840998188] Diagnosis: ESSENTIAL HYPERTENSION[SNOMED: 28888617] Diagnosis: HYPOTHYROIDISM[ICD9: 244.9] Carmelina Ott MD, [facility] CPT-4: 49747 02/18/2013 ([id number]) 96977 EST. P ATIENT, LEVEL III Diagnosis: ESSENTIAL HYPERTENSION[SNOMED: 70728428] Carmelina Ott MD, C CPT-4: 07584 10/01/2012 ([id number]) 33523 EST. P ATIENT, LEVEL IV Diagnosis: DIABETES TYPE II[SNOMED: 484351721] Diagnosis: ESSENTIAL HYPERTENSION[SNOMED: 87821844] Carmelina Ott MD, C CPT-4: 18164 05/18/2012 ([id number]) 90893 EST. P ATIENT, LEVEL IV Diagnosis: DIABETES TYPE II[SNOMED: 556377090] Diagnosis: HYPOTHYROIDISM[ICD9: 244.9] Diagnosis: UTI (lower urinary tract infection)[ICD9: 599.0] Diagnosis: Vaginal yeast infection[ICD9: 112.1] Diagnosis: Rectal lump[ICD9: 787.99] Diagnosis: Abdominal bloating[ICD9: 787.3] Carmelina Ott MD, [facility] CPT-4: 60888 02/11/2012 ([id number]) 73447 EST. P ATIENT, LEVEL IV Diagnosis: ESSENTIAL HYPERTENSION[SNOMED: 67553810] Diagnosis: DIABETES TYPE II[SNOMED: 224037709] Diagnosis: HYPERLIPIDEMIA[ICD9: 272.4] Diagnosis: HYPOTHYROIDISM[ICD9: 244.9] Carmelina Ott MD, [facility] CPT-4: 83749 01/14/2012 Plan of Care Planned Activity Notes C odes Status Date Visit Plan: Hypertension - well con trolled - continue with current medications, continue with no added salt diet. Pt has been encouraged to exercise daily. The pt has been advised to call the office if there are any acute concerns about change in blood pressure readings at home. Diabetes Mellitus - not optimally controlled - cut back on sugary foods, carbs, etc- per recent FSBS reports. I have recommended for the patient to have follow up labs prior to the next office visit. The patient has been instructed to continue with current medications as previously directed, continue with regular FSBS monitoring to assure continued control of diabetes. Pt to call for any acute concerns, complaints, or if the blood glucose readings are starting to become less controlled. Hypothyroidism - pt with chronic hypothyroidism, continue with current medication, will monitor pt to signs or symptoms of lack of adequate supplementation. Pt is to continue with current dose of medication unless directed otherwise. Check labs at regular intervals q 3 months or q 6 months based on previous levels of control. Not well controlled - increase Synthroid to 75mcg daily. 06/30/2019 Patient Education: Patient Medication Summary Completed 06/30/2019 Patient Education: Diabetes Completed 06/30/2019 Visit Plan: Allergic contact dermat itis - discussed with the patient - avoid the eugene product that has caused this reaction - kenalog injection today, prednisone rx sent to pharmacy. 06/24/2019 Appointment: Carmelina Ott WPtel: [address] [place], [place] [id number] (15 min) Moderate 06/24/2019 Patient Education: Patient Medication Summary Completed 06/24/2019 Visit Plan: Hypertension - well con trolled - continue with current medications, continue with no added salt diet. Pt has been encouraged to exercise daily. The pt has been advised to call the office if there are any acute concerns about change in blood pressure readings at home. Diabetes Mellitus - pt has not really been checking her FSBS and with her last hgba1c of 6.9, she does not have good control- per recent FSBS reports. I have recommended for the patient to have follow up labs prior to the next office visit. The patient has been instructed to continue with current medications as previously directed, continue with regular FSBS monitoring to assure continued control of diabetes. Pt to call for any acute concerns, complaints, or if the blood glucose readings are starting to become less controlled. I have recommended for the patient to follow more strictly to the diabetic diet as discussed in clinic to allow for greater blood glucose control. I have counseled Aleyda that if she does not start restricting her diet, I will be forced to restart diabetic medications. Hypothyroidism - pt with chronic hypothyroidism, continue with current medication, will monitor pt to signs or symptoms of lack of adequate hutchins pplementation. Pt is to continue with current dose of medication unless directed otherwise. Check labs at regular intervals q 3 months or q 6 months based on previous levels of control. Hyperlipidemia - pt has been counseled about appropriate diet, exercise, and need for low fat food choices. I have discussed the need for the patient to take medications as prescribed. If the patient has negative side effects from the medication, they are to CALL the office and not abruptly discontinue the medication without discussion with a practitioner in the office. We will check labs in 3-6 months for follow up on the patient's chronic medical problem and to assure normal liver response to medications. 04/21/2019 Appointment: Carmelina Ott WPtel: [address] [place], [place] [id number] (15 min) Moderate 04/21/2019 Patient Education: Patient Medication Summary Completed 04/21/2019 Patient Education: Diabetes Completed 04/21/2019 Visit Plan: URI - Pt advised to inc rease fluids, vitamin C. Discussed natural and expected course of this diagnosis and need to alert me if symptoms do not follow expected course, or if any worse. RX sent to patient's pharmacy. Allergies - chronic - recommended pt to use allergy medication as prescribed. Pt has been counseled as to the appropriate use of the medication. Pt to call if allergy symptoms are not controlled with the medication. If using nasal spray, instructions as follows: Nasal spray- use twice daily, one spray per nostril twice daily, after 30 minutes, rinse out nose with saline spray.. Use opposite hand per nostril to spray in the nasal steroid allergy spray. 02/17/2019 Appointment: Luz Latham WPtel[facility] (15 min) Moderate 02/17/2019 Patient Education: Patient Medication Summary Completed 02/17/2019 Patient Education: Patient Medication Summary Completed 12/31/2018 Appointment: Carmel[facility] Ott WPtel[facility] (15 min) Moderate 12/28/2018 Patient Education: Patient Medication Summary Completed 12/21/2018 Visit Plan: Diabetes Mellitus - con trolled - per recent FSBS reports. I have recommended for the patient to have follow up labs prior to the next office visit. The patient has been instructed to continue with current medications as previously directed, continue with regular FSBS monitoring to assure continued control of diabetes. Pt to call for any acute concerns, complaints, or if the blood glucose readings are starting to become less controlled. Peripheral neuropathy - recommendation is for the patient to continue with Cymbalta. 08/27/2018 Appointment: Carmel[facility] Ott [facility]Ptel[facility] [phone] [facility] (15 min) Moderate 08/27/2018 Patient Education: Patient Medication Summary Completed 08/27/2018 Appointment: Nurse Visit 06/17/2018 Patient Education: Patient Medication Summary Completed 06/17/2018 Visit Plan: Hypertension - well con trolled - continue with current medications, continue with no added salt diet. Pt has been encouraged to exercise daily. The pt has been advised to call the office if there are any acute concerns about change in blood pressure readings at home. Hypothyroidism - pt with chronic hypothyroidism, continue with current medication, will monitor pt to signs or symptoms of lack of adequate supplementation. Pt is to continue with current dose of medication unless directed otherwise. Check labs at regular intervals wither q 3 months or q 6 months based on previous levels of control. D iabetes Mellitus - I have recommended for the patient to have follow up labs prior to the next office visit. The patient has been instructed to continue with current medications as previously directed, continue with regular FSBS monitoring to assure continued control of diabetes. Pt to call for any acute concerns, complaints, or if the blood glucose readings are starting to become less controlled. Chronic pain-decrease cymbalta as directed and stop-monitor symptoms and call if uncontrolled Gait instabilty-patient going to do PT at [facility] 02/24/2018 Appointment: Nicki Cabral [facility]Ptel[facility] [address] [phone] (30 min) Complex 02/24/2018 Patient Education: Patient Medication Summary Completed 02/24/2018 Visit Plan: Hypertension - well con trolled - continue with current medications, continue with no added salt diet. Pt has been encouraged to exercise daily. The pt has been advised to call the office if there are any acute concerns about change in blood pressure readings at home. Diabetes Mellitus - controlled - per recent FSBS reports. I have recommended for the patient to have follow up labs prior to the next office visit. The patient has been instructed to continue with current medications as previously directed, continue with regular FSBS monitoring to assure continued control of diabetes. Pt to call for any acute concerns, complaints, or if the blood glucose readings are starting to become less controlled. Hypothyroidism - pt with chronic hypothyroidism, continue with current medication, will monitor pt to signs or symptoms of lack of adequate supplementation. Pt is to continue with current dose of medication unless directed otherwise. Check labs at regular intervals wither q 3 months or q 6 months based on previous levels of control. Left shoulder pain-biceps tendinitis - pt to do exercises as directed, ant- inflammatories directed to be taken per RX instructions and pt to call if symptoms are not improved. 11/03/2017 Appointment: Nicki Cabral WPtel: [facility] [address] (30 min) Complex 11/03/2017 Patient Education: Patient Medication Summary Completed 11/03/2017 Patient Education: Obesity Completed 11/03/2017 Visit Plan: Hypertension - well con trolled - continue with current medications, continue with no added salt diet. Pt has been encouraged to exercise daily. The pt has been advised to call the office if there are any acute concerns about change in blood pressure readings at home. Allergies - chronic - recommended pt to use allergy medication as prescribed. Pt has been counseled as to the appropriate use of the medication. Pt to call if allergy symptoms are not controlled with the medication. If using nasal spray, instructions as follows: Nasal spray- use twice daily, one spray per nostril twice daily, after 30 minutes, rinse out nose with saline spray.. Use opposite hand per nostril to spray in the nasal steroid allergy spray. [id number] cymbalta 08/08/2017 Appointment: Nicki Cabral WPtel: [phone] [phone] (30 min) Complex 08/08/2017 Patient Education: Patient Medication Summary Completed 08/08/2017 Patient Education: Obesity Completed 08/08/2017 Visit Plan: Hypertension - well con trolled - continue with current medications, continue with no added salt diet. Pt has been encouraged to exercise daily. The pt has been advised to call the office if there are any acute concerns about change in blood pressure readings at home. Hypothyroidism - pt with chronic hypothyroidism, continue with current medication, will monitor pt to signs or symptoms of lack of adequate supplementation. Pt is to continue with current dose of medication unless directed otherwise. Check labs at regular intervals wither q 3 months or q 6 months based on previous levels of control. D epression - uncontrolled - Pt has been counseled about the diagnosis of depression, the potential causes, and risks associated with the diagnosis. The pt denies suicidal ideation, or plans. The patient has been counseled about treatment options, and understands the risks associated with treatment of depression, as well as the risks associated with NOT treating the depression. I believe the pt will benefit from medical intervention and an antidepressant has been appropriately prescribed for this patient. 07/10/2017 App[facility]ment[id number] (15 min) Moderate 07/10/2017 [facility]ment[phone] (30 min) Complex 07/10/2017 Patient Education: Patient Medication Summary Completed 07/10/2017 Patient Education: Obesity Completed 07/10/2017 Visit Plan: Hypertension - well con trolled - continue with current medications, continue with no added salt diet. Pt has been encouraged to exercise daily. The pt has been advised to call the office if there are any acute concerns about change in blood pressure readings at home. Diabetes Mellitus - controlled - per recent FSBS reports. I have recommended for the patient to have follow up labs prior to the next office visit. The patient has been instructed to continue with current medications as previously directed, continue with regular FSBS monitoring to assure continued control of diabetes. Pt to call for any acute concerns, complaints, or if the blood glucose readings are starting to become less controlled. Knee and hip pain - recommended pt to continue with aleve, get [place] to use on your knee and hip three times daily Hypothyroidism - pt with chronic hypothyroidism, continue with current medication, will monitor pt to signs or symptoms of lack of adequate supplementation. Pt is to continue with current dose of medication unless directed otherwise. Check labs at regular intervals wither q 3 months or q 6 months based on previous levels of control. 03/06/2017 Appointment: Carmelina Ott WPtel: [phone] [id number] (15 min) Moderate 03/06/2017 Patient Education: Patient Medication Summary Completed 03/06/2017 Patient Education: Obesity Completed 03/06/2017 Visit Plan: Rash-very faint-will cu lture the rash today- recommend emollient such as eucerin cream or cerave-call if rash does not resolve or if any worse. Patient verbalized understanding of plan. 03/04/2017 Appointment: Nicki Cabral WPtel: [phone] [phone] [place] (15 min) Moderate 03/04/2017 Patient Education: Patient Medication Summary Completed 03/04/2017 Appointment: Carmelina Ott WPtel: [phone] [facility] (15 min) Moderate 02/19/2017 Visit Plan: Medicare Exam - today w e discussed the patients past history, immunizations, preventative exams/evaluations - colonoscopy, fecal occult blood testing, routine labs for renal function, glucose, cholesterol, osteoporosis evaluations, cardiovascular testing and cancer screenings. We have also discussed mental health and the signs/symptoms of depression. The patient was advised of home safety evaluations and the need to make sure that as the aging process continues, we need to be aware of different ways to make the home a safer place to reside. The patient has also been counseled that exercise is necessary - and of utmost importance as we age to help decrease fall risk and to maintain independece in the home. Today we discussed the need for the patient to create paperwork for Advanced directives as well as for the patient to provide this office with a copy of her DOPA paperwork for health care surrogate. 11/04/2016 Appointment: Luz Latham WPtel: [phone] [id number] [facility] - Annual Wellness Visit 11/04/2016 Patient Education: Patient Medication Summary Completed 11/04/2016 Visit Plan: Hypertension - well con trolled - continue with current medications, continue with no added salt diet. Pt has been encouraged to exercise daily. The pt has been advised to call the office if there are any acute concerns about change in blood pressure readings at home. Decrease dose of metoprolol to 50mg at bedtime. Diabetes Mellitus - controlled - per recent FSBS reports. I have recommended for the patient to have follow up labs prior to the next office visit. The patient has been instructed to continue with current medications as previously directed, continue with regular FSBS monitoring to assure continued control of diabetes. Pt to call for any acute concerns, complaints, or if the blood glucose readings are starting to become less controlled. Hypothyroidism - pt with chronic hypothyroidism, continue with current medication, will monitor pt to signs or symptoms of lack of adequate supplementation. Pt is to continue with current dose of medication unless directed otherwise. Check labs at regular intervals wither q 3 months or q 6 months based on previous levels of control. 10/23/2016 Appointment: [facility]el[phone] [facility] (15 min) Moderate 10/23/2016 Patient Education: Patient Medication Summary Completed 10/23/2016 Patient Education: Obesity Completed 10/23/2016 Visit Plan: Right side pain - The p t is to use prn antiinflammatories to manage acute pain. The patient is to call the office if the pain is worsening or does not improve. Voltaren gel sample given. Hypothyroidism - pt with chronic hypothyroidism, continue with current medication, will monitor pt to signs or symptoms of lack of adequate supplementation. Pt is to continue with current dose of medication unless dir ected otherwise. Check labs at regular intervals wither q 3 months or q 6 months based on previous levels of control. 10/03/2016 Appointment: Luz Latham [facility]Ptel: [phone] [facility] [place] (30 min) Complex 10/03/2016 Patient Education: Patient Medication Summary Completed 10/03/2016 Patient Education: Obesity Completed 10/03/2016 Visit Plan: Insect bite-right cheek -kenalog injection today in the office-use benadryl cream as needed for itching. Call for s/s of infection-increase redness, warmth, induration. Patient verbalized understanding of plan. 09/03/2016 Appointment: Nicki Cabral [facility]Ptel: [phone] [phone] (15 min) Moderate 09/03/2016 Patient Education: Patient Medication Summary Completed 09/03/2016 Visit Plan: Hypertension - well con trolled - continue with current medications, continue with no added salt diet. Pt has been encouraged to exercise daily. The pt has been advised to call the office if there are any acute concerns about change in blood pressure readings at home. Decrease dose of metoprolol to 50mg at bedtime. Diabetes Mellitus - controlled - per recent FSBS reports. I have recommended for the patient to have follow up labs prior to the next office visit. The patient has been instructed to continue with current medications as previously directed, continue with regular FSBS monitoring to assure continued control of diabetes. Pt to call for any acute concerns, complaints, or if the blood glucose readings are starting to become less controlled. Hypothyroidism - pt with chronic hypothyroidism, continue with current medication, will monitor pt to signs or symptoms of lack of adequate supplementation. Pt is to continue with current dose of medication unless directed otherwise. Check labs at regular intervals wither q 3 months or q 6 months based on previous levels of control. 08/21/2016 Appointment: Carm[facility] Ott [facility]Ptel[phone] [facility] (15 min) Moderate 08/21/2016 Patient Education: Patient Medication Summary Completed 08/21/2016 Patient Education: Obesity Completed 08/21/2016 Visit Plan: HTN and Tachycardia - h tn - controlled at home - see list - and fatigue - therefore, will decrease dose of toprol to 50mg at hs and 25mg in the morning. We will send our note to Dr. Saldana to alert him to the medication changes and the reason behind the change - if her fatigue is improved - this will be a successful change, if not, will need to consider increase back to 100mg toprol XL 07/24/2016 Patient Education: Patient Medication Summary Completed 07/24/2016 Patient Education: Obesity Completed 07/24/2016 Patient Education: Patient Medication Summary Completed 05/16/2016 Visit Plan: Hypertension - well con trolled - continue with current medications, continue with no added salt diet. Pt has been encouraged to exercise daily. The pt has been advised to call the office if there are any acute concerns about change in blood pressure readings at home. Diabetes Mellitus - controlled - per recent FSBS reports. I have recommended for the patient to have follow up labs prior to the next office visit. The patient has been instructed to continue with current medications as previously directed, continue with regular FSBS monitoring to assure continued control of diabetes. Pt to call for any acute concerns, complaints, or if the blood glucose readings are starting to become less controlled. Hypothyroidism - pt with chronic hypothyroidism, continue with current medication, will monitor pt to signs or symptoms of lack of adequate supplementation. Pt is to continue with current dose of medication unless directed otherwise. Check labs at regular intervals wither q 3 months or q 6 months based on previous levels of control. 04/24/2016 Appointment: Carmelina Ott WPtel: [phone] [id number] (15 min) Moderate 04/24/2016 Patient Education: Patient Medication Summary Completed 04/24/2016 Patient Education: Obesity Completed 04/24/2016 Visit Plan: Diabetes Mellitus - con trolled - per recent FSBS reports. I have recommended for the patient to have follow up labs prior to the next office visit. Pt is not on glucose medications at this time, but is controlled with diet, however with neuropathy, i would like for her to continue with regular FSBS monitoring to assure continued control of diabetes. Pt to call for any acute concerns, complaints, or if the blood glucose readings are starting to become less controlled. Pt has peripheral neuropathy - I have recommended that the patient needs to have diabetic shoes- I believe that the combination of her diabetes and back surgery has led to peripheral neuropathy. 01/18/2016 Appointment: Carmelina Ott WPtel: [phone] [facility] (15 min) Moderate 01/18/2016 Patient Education: Patient Medication Summary Completed 01/18/2016 Visit Plan: Urticaria - allergy karina ting - our office will call to zhang's office to see if they will do allergy testing on her. Check ALYSSA, RA, CRP, ESR, CMP, CBC Hypertension - well controlled - continue with current medications, continue with no added salt diet. Pt has been encouraged to exercise daily. The pt has been advised to call the office if there are any acute concerns about change in blood pressure readings at home. Hyperlipidemia - controlled per last few reports - check Lipids today. 12/21/2015 Appointment: Carmelina Ott WPtel: [phone] [phone] (15 min) Moderate 12/21/2015 Patient Education: Patient Medication Summary Completed 12/21/2015 Patient Education: Hypertension Completed 12/21/2015 Visit Plan: Hypertension - well con trosudhakared - continue with current medications, continue with no added salt diet. Pt has been encouraged to exercise daily. The pt has been advised to call the office if there are any acute concerns about change in blood pressure readings at home. Hypothyroidism - pt with chronic hypothyroidism, continue with current medication, will monitor pt to signs or symptoms of lack of adequate supplementation. Pt is to continue with current dose of medication unless directed otherwise. Check labs at regular intervals wither q 3 months or q 6 months based on previous levels of control. Aminta veliz - hold the pravastatin x 1 month 08/17/2015 Appointment: Carmelina Ott WPtel: [phone] [phone] (15 min) Moderate 08/17/2015 Patient Education: Patient Medication Summary Completed 08/17/2015 Appointment: (30 min) Complex 07/06/2015 Visit Plan: Edema- Increased since Friday. pt has been advised to elevate legs to prevent dependent edema, compression has been recommended to help to naturally decrease peripheral edema. Avoid salt intake. C racked/dry lower lip-RX to pt's pharmacy. Call office if symptoms worsen. Hypertension - The patient has been counseled to cut back on salt in diet for a no added salt diet, low fat diet, start an exercise program with low weight bearing exercises and higher aerobic activity for heart health. The patient is to check blood pressure readings as an outpatient and either fax, call, or email the readings to the office next week for practitioner to review. The pt is to call for acute concerns. Low grade fever, fatigue- recheck labs today. UA negative, Chest XRAY negative, surgical incisions without s/s infection. CBC, CMP and blood culture today. Patient lives alone and is currently unable to drive. Home Health referral for weakness, weight loss, hypertension, management of edema, recent back surgery. 06/23/2015 Appointment: (30 min) Complex 06/23/2015 Patient Education: Patient Medication Summary Completed 06/23/2015 Patient Education: Hypertension Completed 06/23/2015 Visit Plan: Tachycardia/Dyspnea S/P Back Surgery- Pulse and o2 saturation improved by discharge to 88 BPM and 98% on RA. Check labs and chest X-Ray today. Edema- Mild, Continue to elevate lower extremities and watch salt intake. Cracked/dry lower lip- Increase fluids and apply chapstick frequently. Call office if symptoms worsen. Hospital follow up - This was a follow up appointment from the patient's hospitalization during which time Dr. Ott formulated the assessment and plan for the follow up on this patient's medical condition. 06/21/2015 Visit Plan: Tachycardia/Dyspnea S/P Back Surgery- Pulse and o2 saturation improved by discharge to 88 BPM and 98% on RA. Check labs and chest X-Ray today. Edema- Mild, Continue to elevate lower extremities and watch salt intake. Cracked/dry lower lip- Increase fluids and apply chapstick frequently. Call office if symptoms worsen. Hospital follow up - This was a follow up appointment from the patient's hospitalization during which time Dr. Ott formulated the assessment and plan for the follow up on this patient's medical condition. 06/21/2015 Appointment: (30 min) Complex 06/21/2015 Patient Education: Patient Medication Summary Completed 06/21/2015 Patient Education: Hypertension Completed 06/21/2015 Visit Plan: Sacroiliitis - back exe rcises discussed with the patient, pt to continue with anti-inflammatories. Pt is to call if the symptoms do not improve or if they worsen. Kenalog injection today in the office. Refill hydrocodone 03/28/2015 Patient Education: Patient Medication Summary Completed 03/28/2015 Visit Plan: Hypothyroidism - pt wit h chronic hypothyroidism, continue with current medication, will monitor pt to signs or symptoms of lack of adequate supplementation. Pt is to continue with current dose of medication unless directed otherwise. Check labs at regular intervals wither q 3 months or q 6 months based on previous levels of control. Diabetes Mellitus - controlled - per recent FSBS reports. I have recommended for the patient to have follow up labs prior to the next office visit. The patient has been instructed to continue with current medications as previously directed, continue with regular FSBS mon itoring to assure continued control of diabetes. Pt to call for any acute concerns, complaints, or if the blood glucose readings are starting to become less controlled. Pt is to decrease her extra sweets - she is to call the office with her FSBS report in the next month. Hypertension - well controlled - continue with current medications, continue with no added salt diet. Pt has been encouraged to exercise daily. The pt has been advised to call the office if there are any acute concerns about change in blood pressure readings at home. Hyperlipidemia - pt has been counseled about appropriate diet, exercise, and need for low fat food choices. I have discussed the need for the patient to take medications as prescribed. If the patient has negative side effects from the medication, they are to CALL the office and not abruptly discontinue the medication without discussion with a practitioner in the office. We will check labs in 3-6 months for follow up on the patient's chronic medical problem and to assure normal liver response to medications. Pt has increase in muscle aches - recommended pt to decrease her pravastatin to 20mg daily x 2weeks and to talk to her solar installation foreman about potential permanent decrease in her medication if the two week trial of a lower dose has helped to improve her symptoms of muscle aches and joint pain. 07/07/2014 Appointment: Carmelina Ott WPtel: [facility] Follow up 07/07/2014 Patient Education: Patient Medication Summary Completed 07/07/2014 Patient Education: Hypertension Completed 07/07/2014 Visit Plan: Diabetes Mellitus - soraida vasquez - per recent FSBS reports. I have recommended for the patient to have follow up labs prior to the next office visit. The patient has been instructed to continue with current medications as previously directed, continue with regular FSBS monitoring to assure continued control of diabetes. Pt to call for any acute concerns, complaints, or if the blood glucose readings are starting to become less controlled. Hypertension - well controlled - continue with current medications, continue with no added salt diet. Pt has been encouraged to exercise daily. The pt has been advised to call the office if there are any acute concerns about change in blood pressure readings at home. Hypothyroidism - pt with chronic hypothyroidism, continue with current medication, will monitor pt to signs or symptoms of lack of adequate supplementation. Pt is to continue with current dose of medication unless directed otherwise. Check labs at regular intervals wither q 3 months or q 6 months based on previous levels of control. 03/24/2014 Appointment: Carmelina Ott WPtel: [facility]5 [place] [id number] Follow up 03/24/2014 Patient Education: Patient Medication Summary Completed 03/24/2014 Patient Education: Hypertension Completed 03/24/2014 Visit Plan: Hypertension - well con trolled - continue with current medications, continue with no added salt diet. Pt has been encouraged to exercise daily. The pt has been advised to call the office if there are any acute concerns about change in blood pressure readings at home. Diabetes Mellitus - controlled - per recent FSBS reports. I have recommended for the patient to have follow up labs prior to the next office visit. The patient has been instructed to continue with current medications as previously directed, continue with regular FSBS monitoring to assure continued control of diabetes. Pt to call for any acute concerns, complaints, or if the blood glucose readings are starting to become less controlled. 01/20/2014 Appointment: Carmelina tOt WPtel: [facility]5 [id number] Follow up 01/20/2014 Patient Education: Patient Medication Summary Completed 01/20/2014 Patient Education: Hypertension Completed 01/20/2014 Appointment: Carmelina Ott WPtel: [facility]5 [facility] Follow up 01/17/2014 Visit Plan: Diabetes Mellitus - con trolled - per recent FSBS reports. I have recommended for the patient to have follow up labs prior to the next office visit. The patient has been instructed to continue with current medications as previously directed, continue with regular FSBS monitoring to assure continued control of diabetes. Pt to call for any acute concerns, complaints, or if the blood glucose readings are starting to become less controlled. Pt is to start more rigorously checking her FSBS - she is to bring by to the office in one month for review - if uncontrolled - will need to consider starting her on new medications. Hypertension - not optimally - continue with current medications, continue with no added salt diet. Pt has been encouraged to exercise daily. The pt has been advised to call the office if there are any acute concerns about change in blood pressure readings at home. Peripheral neuropathy - recommended pt to have new diabetic shoes, need greater diabetic control. 12/20/2013 Appointment: Carmelina Ott WPtel: [phone] [facility] Other 12/20/2013 Patient Education: Patient Medication Summary Completed 12/20/2013 Patient Education: Hypertension Completed 12/20/2013 Visit Plan: Diabetes Mellitus-DIABE KARINA AND DIET EDUCATION DISCUSSED IN DETAIL TODAY - I have recommended for the patient to have follow up labs prior to the next office visit. The patient has been instructed to continue with current medications as previously directed, continue with regular FSBS monitoring to assure continued control of diabetes. Pt to call for any acute concerns, complaints, or if the blood glucose readings are starting to become less controlled. I have recommended for the patient to follow more strictly to the diabetic diet as discussed in clinic to allow for greater blood glucose control. Hypertension-ELEVATED TODAY - continue with current medications, continue with no added salt diet. Pt has been encouraged to exercise daily. The pt has been advised to call the office if there are any acute concerns about change in blood pressure readings at home. CALL WITH BLOOD PRESSURE AND PULSE READINGS IN 1 WEEK 10/25/2013 Appointment: Carmelina Ott WPtel: [phone] [facility] Diabetic education 10/25/2013 Patient Education: Patient Medication Summary Completed 10/25/2013 Patient Education: Hypertension Completed 10/25/2013 Patient Education: .Amazing charts Diabe tic meal planning guide Completed 10/25/2013 Visit Plan: Diabetes Mellitus - wor sening control - per recent FSBS reports. I have recommended for the patient to have follow up labs prior to the next office visit. The patient has been instructed to continue with current medications as previously directed, continue with regular FSBS monitoring to assure continued control of diabetes. Pt to call for any acute concerns, complaints, or if the blood glucose readings are starting to become less controlled. Hypertension - well controlled - continue with current medications, continue with no added salt diet. Pt has been encouraged to exercise daily. The pt has been advised to call the office if there are any acute concerns about change in blood pressure readings at home. Hypothyroidism - pt with chronic hypothyroidism, continue with current medication, will monitor pt to signs or symptoms of lack of adequate supplementation. Pt is to continue with current dose of medication unless directed otherwise. Check labs at regular intervals wither q 3 months or q 6 months based on previous levels of control. 10/19/2013 Appointment: Carmelina Ott WPtel: [phone] [id number] Follow up 10/19/2013 Patient Education: Patient Medication Summary Completed 10/19/2013 Patient Education: Hypertension Completed 10/19/2013 Appointment: Carmelina Ott WPtel: [address] [place], [place] [id number] Follow up 09/23/2013 Visit Plan: Hypertension - well con trolled - continue with current medications, continue with no added salt diet. Pt has been encouraged to exercise daily. The pt has been advised to call the office if there are any acute concerns about change in blood pressure readings at home. Diabetes Mellitus - controlled - per recent FSBS reports. I have recommended for the patient to have follow up labs prior to the next office visit. The patient has been instructed to continue with current medications as previously directed, continue with regular FSBS monitoring to assure continued control of diabetes. Pt to call for any acute concerns, complaints, or if the blood glucose readings are starting to become less controlled. Hypothyroidism - pt with chronic hypothyroidism, continue with current medication, will monitor pt to signs or symptoms of lack of adequate supplementation. Pt is to continue with current dose of medication unless directed otherwise. Check labs at regular intervals wither q 3 months or q 6 months based on previous levels of control. 05/25/2013 Appointment: Carmelina Ott WPtel: [id number] Follow up 05/25/2013 Patient Education: Patient Medication Summary Completed 05/25/2013 Patient Education: Hypertension Completed 05/25/2013 Appointment: Carmelina Ott WPtel: [id number] Follow up 05/19/2013 Visit Plan: Diabetes Mellitus - con trolled - per recent FSBS reports. I have recommended for the patient to have follow up labs prior to the next office visit. The patient has been instructed to continue with current medications as previously directed, continue with regular FSBS monitoring to assure continued control of diabetes. Pt to call for any acute concerns, complaints, or if the blood glucose readings are starting to become less controlled. Hypertension - well controlled - continue with current medications, continue with no added salt diet. Pt has been encouraged to exercise daily. The pt has been advised to call the office if there are any acute concerns about change in blood pressure readings at home. Hypothryoidism - continue with thyroid medication at higher dose - repeat thyroid function studies in 3 months. 02/18/2013 Appointment: Carmelina Ott WPtel: [phone] [id number] Follow up 02/18/2013 Patient Education: Patient Medication Summary Completed 02/18/2013 Patient Education: Hypertension Completed 02/18/2013 Visit Plan: Hypertension - well con trolled - continue with current medications, continue with no added salt diet. Pt has been encouraged to exercise daily. The pt has been advised to call the office if there are any acute concerns about change in blood pressure readings at home. Lateral femoral nerve entrapment - controlled and resolved. 10/01/2012 [facility]ment[id number] Other 10/01/2012 Patient Education: Patient Medication Summary Completed 10/01/2012 Patient Education: High Blood Pressure: Essential Hypertension Completed 10/01/2012 Visit Plan: Diabetes Mellitus - con trolled - per recent FSBS reports. I have recommended for the patient to have follow up labs prior to the next office visit. The patient has been instructed to continue with current medications as previously directed, continue with regular FSBS monitoring to assure continued control of diabetes. Pt to call for any acute concerns, complaints, or if the blood glucose readings are starting to become less controlled. Hypertension - well controlled - continue with current medications, continue with no added salt diet. Pt has been encouraged to exercise daily. The pt has been advised to call the office if there are any acute concerns about change in blood pressure readings at home. 05/18/2012 Patient Education: Patient Medication Summary Completed 05/18/2012 Patient Education: High Blood Pressure: Essential Hypertension Completed 05/18/2012 Visit Plan: Diabetes Mellitus - unc ertain of the level of control - I have recommended for the patient to have follow up labs prior to the next office visit. The patient has been instructed to continue with current medications as previously directed, continue with regular FSBS monitoring to assure continued control of diabetes. Pt to call for any acute concerns, complaints, or if the blood glucose readings are starting to become less controlled. Hypothyroidism - pt with chronic hypothyroidism, continue with current medication, will monitor pt to signs or symptoms of lack of adequate supplementation. Pt is to continue with current dose of medication unless directed otherwise. Check labs at regular intervals wither q 3 months or q 6 months based on previous levels of control. UTI - pt with positive urinalysis - culture sent if appropriate. Antibiotic electronically prescribed to pt's pharmacy of choice. Pt to call if symptoms do not improve. Rectal lump - may be due to her hysterectomy and a suture that has not dissolved. I have recommended the following: recommend colonoscopy ct scan of abdomen and pelvis Vaginal yeast infection - rx for diflucan for yeast 02/11/2012 Appointment: Carmelina Ott WPtel[id number] pt will comment on meaningful use (from 01/14/12) Other 02/11/2012 Patient Education: Patient Medication Summary Completed 02/11/2012 Visit Plan: Diabetes Mellitus - con hooded - per recent FSBS reports. I have recommended for the patient to have follow up labs prior to the next office visit. The patient has been instructed to continue with current medications as previously directed, continue with regular FSBS monitoring to assure continued control of diabetes. Pt to call for any acute concerns, complaints, or if the blood glucose readings are starting to become less controlled. Hyperlipidemia - pt has been counseled about appropriate diet, exercise, and need for low fat food choices. I have discussed the need for the patient to take medications as prescribed. If the patient has negative side effects from the medication, they are to CALL the office and not abruptly discontinue the medication without discussion with a practicioner in the office. We will check labs in 3-6 months for follow up on the patient's chronic medical problem and to assure normal liver response to medications. Hypertension - uncontrolled - the patient's medications have been modified as documented in the visit note. The patient has been counseled to cut back on salt in diet for a no added salt diet, low fat diet, start an exercise program with low weight bearing exercises and higher aerobic activity for heart health. The patient is to check blood pressure readings as an outpatient and either fax, call, or email the readings to the office next week for practicioner to review. The pt is to call for acute concerns. Hypothyroidism - pt with chronic hypothyroidism, continue with current medication, will monitor pt to signs or symptoms of lack of adequate supplementation. Pt is to continue with current dose of medication unless directed otherwise. Check labs at regular intervals wither q 3 months or q 6 months based on previous levels of control. INCREASE THE LEVOTHYROXINE TO TWO PILLS DAILY- repeat labs in 3 months for the thyroid. RECOMMENDED DIET. Ureg incontinenece - recommended kegel exercises. 01/14/2012 Appointment: [phone] [facility] Other 01/14/2012 Patient Education: Patient Medication Summary Completed 01/14/2012 Patient Education: High Blood Pressure: Essential Hypertension Completed 01/14/2012 Referral: Andrew Madera Referral Relationship Referral: Ravi Gaston WPtel: [phone] [id number] [place] Referral Relationship Referral: Ella Saldana Referral Relationship Instructions Comment . Hypertension - wel l controlled - continue with current medications, continue with no added salt diet. Pt has been encouraged to exercise daily. The pt has been advised to call the office if there are any acute concerns about change in blood pressure readings at home. Lateral femoral nerve entrapment - controlled and resolved. . Hypertension - wel l controlled - continue with current medications, continue with no added salt diet. Pt has been encouraged to exercise daily. The pt has been advised to call the office if there are any acute concerns about change in blood pressure readings at home. Diabetes Mellitus - pt has not really been checking her FSBS and with her last hgba1c of 6.9, she does not have good control- per recent FSBS reports. I have recommended for the patient to have follow up labs prior to the next office visit. The patient has been instructed to continue with current medications as previously directed, continue with regular FSBS monitoring to assure continued control of diabetes. Pt to call for any acute concerns, complaints, or if the blood glucose readings are starting to become less controlled. I have recommended for the patient to follow more strictly to the diabetic diet as discussed in clinic to allow for greater blood glucose control. I have counseled Aleyda that if she does not start restricting her diet, I will be forced to restart diabetic medications. Hypothyroidism - pt with chronic hypothyroidism, continue with current medication, will monitor pt to signs or symptoms of lack of adequate supplementation. Pt is to continue with current dose of medication unless directed otherwise. Check labs at regular intervals q 3 months or q 6 months based on previous levels of control. Hyperlipidemia - pt has been counseled about appropriate diet, exercise, and need for low fat food choices. I have discussed the need for the patient to take medications as prescribed. If the patient has negative side effects from the medication, they are to CALL the office and not abruptly discontinue the medication without discussion with a practitioner in the office. We will check labs in 3-6 months for follow up on the patient's chronic medical problem and to assure normal liver response to medications. vitamin b12 2000mcg daily folate 1mg daily start claritin 10mg daily . Diabetes Mellitus - controlled - per r ecent FSBS reports. I have recommended for the patient to have follow up labs prior to the next office visit. Pt is not on glucose medications at this time, but is controlled with diet, however with neuropathy, i would like for her to continue with regular FSBS monitoring to assure continued control of diabetes. Pt to call for any acute concerns, complaints, or if the blood glucose readings are starting to become less controlled. Pt has peripheral neuropathy - I have recommended that the patient needs to have diabetic shoes- I believe that the combination of her diabetes and back surgery has led to peripheral neuropathy. . Diabetes Mellitus - controlled - per recent FSBS reports. I have recommended for the patient to have follow up labs prior to the next office visit. The patient has been instructed to continue with current medications as previously directed, continue with regular FSBS monitoring to assure continued control of diabetes. Pt to call for any acute concerns, complaints, or if the blood glucose readings are starting to become less controlled. Hyperlipidemia - pt has been counseled about appropriate diet, exercise, and need for low fat food choices. I have discussed the need for the patient to take medications as prescribed. If the patient has negative side effects from the medication, they are to CALL the office and not abruptly discontinue the medication without discussion with a practicioner in the office. We will check labs in 3-6 months for follow up on the patient's chronic medical problem and to assure normal liver response to medications. Hypertension - uncontrolled - the patient's medications have been modified as documented in the visit note. The patient has been counseled to cut back on salt in diet for a no added salt diet, low fat diet, start an exercise program with low weight bearing exercises and higher aerobic activity for heart health. The patient is to check blood pressure readings as an outpatient and either fax, call, or email the readings to the office next week for practicioner to review. The pt is to call for acute concerns. Hypothyroidism - pt with chronic hypothyroidism, continue with current medication, will monitor pt to signs or symptoms of lack of adequate supplementation. Pt is to continue with current dose of medication unless directed otherwise. Check labs at regular intervals wither q 3 months or q 6 months based on previous levels of control. INCREASE THE LEVOTHYROXINE TO TWO PILLS DAILY- repeat labs in 3 months for the thyroid. RECOMMENDED DIET. Ureg incontinenece - recommended kegel exercises. Keep applying chapst ick to lip Chest X-Ray at [facility] today We will write referral order for Dr. Bae to evaluate for diabetic shoes Call office if symptoms worsen or continue . Tachycardia/Dyspnea S/P Back Surgery- Pulse and o2 saturation improved by discharge to 88 BPM and 98% on RA. Check labs and chest X-Ray today. Edema- Mild, Continue to elevate lower extremities and watch salt intake. Cracked/dry lower lip- Increase fluids and apply chapstick frequently. Call office if symptoms worsen. Hospital follow up - This was a follow up appointment from the patient's hospitalization during which time Dr. Ott formulated the assessment and plan for the follow up on this patient's medical condition. Keep applying chapst ick to lip Chest X-Ray at [facility] today We will write referral order for Dr. Bae to evaluate for diabetic shoes Call office if symptoms worsen or continue . Tachycardia/Dyspnea S/P Back Surgery- Pulse and o2 saturation improved by discharge to 88 BPM and 98% on RA. Check labs and chest X-Ray today. Edema- Mild, Continue to elevate lower extremities and watch salt intake. Cracked/dry lower lip- Increase fluids and apply chapstick frequently. Call office if symptoms worsen. Hospital follow up - This was a follow up appointment from the patient's hospitalization during which time Dr. Ott formulated the assessment and plan for the follow up on this patient's medical condition. CALL FRIDAY IF MIMI N NOT BETTER, WE CAN SEND FOR XRAYS AND LABS . Sacroiliitis - back exercises discusse d with the patient, pt to continue with anti-inflammatories. Pt is to call if the symptoms do not improve or if they worsen. Kenalog injection today in the office. Refill hydrocodone . Insect bite-right cheek-kenalog injection today in the office-use benadryl cream as needed for itching. Call for s/s of infection- increase redness, warmth, induration. Patient verbalized understanding of plan. . Diabetes Mellitus - controlled - per recent FSBS reports. I have recommended for the patient to have follow up labs prior to the next office visit. The patient has been instructed to continue with current medications as previously directed, continue with regular FSBS monitoring to assure continued control of diabetes. Pt to call for any acute concerns, complaints, or if the blood glucose readings are starting to become less controlled. Hypertension - well controlled - continue with current medications, continue with no added salt diet. Pt has been encouraged to exercise daily. The pt has been advised to call the office if there are any acute concerns about change in blood pressure readings at home. . Diabetes Mellitus - uncertain of the level of control - I have recommended for the patient to have follow up labs prior to the next office visit. The patient has been instructed to continue with current medications as previously directed, continue with regular FSBS monitoring to assure continued control of diabetes. Pt to call for any acute concerns, complaints, or if the blood glucose readings are starting to become less controlled. Hypothyroidism - pt with chronic hypothyroidism, continue with current medication, will monitor pt to signs or symptoms of lack of adequate supplementation. Pt is to continue with current dose of medication unless directed otherwise. Check labs at regular intervals wither q 3 months or q 6 months based on previous levels of control. UTI - pt with positive urinalysis - culture sent if appropriate. Antibiotic electronically prescribed to pt's pharmacy of choice. Pt to call if symptoms do not improve. Rectal lump - may be due to her hysterectomy and a suture that has not dissolved. I have recommended the following: recommend colonoscopy ct scan of abdomen and pelvis Vaginal yeast infection - rx for diflucan for yeast DECREASE THE METOPRO LOL ER TO 50MG AT BEDTIME LET US KNOW WHAT YOUR BLOOD PRESSURE READINGS AND HEART RATE READINGS ARE IN 2 WEEKS - . Hypertension - well controlled - christoph nue with current medications, continue with no added salt diet. Pt has been encouraged to exercise daily. The pt has been advised to call the office if there are any acute concerns about change in blood pressure readings at home. Decrease dose of metoprolol to 50mg at bedtime. Diabetes Mellitus - controlled - per recent FSBS reports. I have recommended for the patient to have follow up labs prior to the next office visit. The patient has been instructed to continue with current medications as previously directed, continue with regular FSBS monitoring to assure continued control of diabetes. Pt to call for any acute concerns, complaints, or if the blood glucose readings are starting to become less controlled. Hypothyroidism - pt with chronic hypothyroidism, continue with current medication, will monitor pt to signs or symptoms of lack of adequate supplementation. Pt is to continue with current dose of medication unless directed otherwise. Check labs at regular intervals wither q 3 months or q 6 months based on previous levels of control. . Diabetes Mellitus - controlled - per recent FSBS reports. I have recommended for the patient to have follow up labs prior to the next office visit. The patient has been instructed to continue with current medications as previously directed, continue with regular FSBS monitoring to assure continued control of diabetes. Pt to call for any acute concerns, complaints, or if the blood glucose readings are starting to become less controlled. Peripheral neuropathy - recommendation is for the patient to continue with Cymbalta. . Medicare Exam - to day we discussed the patients past history, immunizations, preventative exams/evaluations - colonoscopy, fecal occult blood testing, routine labs for renal function, glucose, cholesterol, osteoporosis evaluations, cardiovascular testing and cancer screenings. We have also discussed mental health and the signs/symptoms of depression. The patient was advised of home safety evaluations and the need to make sure that as the aging process continues, we need to be aware of different ways to make the home a safer place to reside. The patient has also been counseled that exercise is necessary - and of utmost importance as we age to help decrease fall risk and to maintain independece in the home. Today we discussed the need for the patient to create paperwork for Advanced directives as well as for the patient to provide this office with a copy of her DOPA paperwork for health care surrogate. hold pravastatin x 1 month - if the hives do not go away within two weeks, call the office we will probably have you restart the pravastatin. Hypertension - well controlled - continue with current medications, continue with no added salt diet. Pt has been encouraged to exercise daily. The pt has been advised to call the office if there are any acute concerns about change in blood pressure readings at home. Hypothyroidism - pt with chronic hypothyroidism, continue with current medication, will monitor pt to signs or symptoms of lack of adequate supplementation. Pt is to continue with current dose of medication unless directed otherwise. Check labs at regular intervals wither q 3 months or q 6 months based on previous levels of control. Hives - hold the pravastatin x 1 month . Diabetes Mellitus - controlled - per recent FSBS reports. I have recommended for the patient to have follow up labs prior to the next office visit. The patient has been instructed to continue with current medications as previously directed, continue with regular FSBS monitoring to assure continued control of diabetes. Pt to call for any acute concerns, complaints, or if the blood glucose readings are starting to become less controlled. Hypertension - well controlled - continue with current medications, continue with no added salt diet. Pt has been encouraged to exercise daily. The pt has been advised to call the office if there are any acute concerns about change in blood pressure readings at home. Hypothyroidism - pt with chronic hypothyroidism, continue with current medication, will monitor pt to signs or symptoms of lack of adequate supplementation. Pt is to continue with current dose of medication unless directed otherwise. Check labs at regular intervals wither q 3 months or q 6 months based on previous levels of control. . Hypertension - wel l controlled - continue with current medications, continue with no added salt diet. Pt has been encouraged to exercise daily. The pt has been advised to call the office if there are any acute concerns about change in blood pressure readings at home. Diabetes Mellitus - controlled - per recent FSBS reports. I have recommended for the patient to have follow up labs prior to the next office visit. The patient has been instructed to continue with current medications as previously directed, continue with regular FSBS monitoring to assure continued control of diabetes. Pt to call for any acute concerns, complaints, or if the blood glucose readings are starting to become less controlled. Hypothyroidism - pt with chronic hypothyroidism, continue with current medication, will monitor pt to signs or symptoms of lack of adequate supplementation. Pt is to continue with current dose of medication unless directed otherwise. Check labs at regular intervals wither q 3 months or q 6 months based on previous levels of control. ZYRTEC (CETIRIZINE) 10MG DAILY FOR ALLERGIES CONTINUE CYMBALTA 30MG DAILY-WE CAN INCREASE TO 60MG DAILY IF NEEDED-CALL US . Hypertension - well controlled - christoph nue with current medications, continue with no added salt diet. Pt has been encouraged to exercise daily. The pt has been advised to call the office if there are any acute concerns about change in blood pressure readings at home. Allergies - chronic - recommended pt to use allergy medication as prescribed. Pt has been counseled as to the appropriate use of the medication. Pt to call if allergy symptoms are not controlled with the medication. If using nasal spray, instructions as follows: Nasal spray- use twice daily, one spray per nostril twice daily, after 30 minutes, rinse out nose with saline spray.. Use opposite hand per nostril to spray in the nasal steroid allergy spray. [id number] cymbalta CYMBALTA 30MG DAILY . Hypertension - well controlled - christoph nue with current medications, continue with no added salt diet. Pt has been encouraged to exercise daily. The pt has been advised to call the office if there are any acute concerns about change in blood pressure readings at home. Hypothyroidism - pt with chronic hypothyroidism, continue with current medication, will monitor pt to signs or symptoms of lack of adequate supplementation. Pt is to continue with current dose of medication unless directed otherwise. Check labs at regular intervals wither q 3 months or q 6 months based on previous levels of control. Depression - uncontrolled - Pt has been counseled about the diagnosis of depression, the potential causes, and risks associated with the diagnosis. The pt denies suicidal ideation, or plans. The patient has been counseled about treatment options, and understands the risks associated with treatment of depression, as well as the risks associated with NOT treating the depression. I believe the pt will benefit from medical intervention and an antidepressant has been appropriately prescribed for this patient. . Hypertension - wel l controlled - continue with current medications, continue with no added salt diet. Pt has been encouraged to exercise daily. The pt has been advised to call the office if there are any acute concerns about change in blood pressure readings at home. Diabetes Mellitus - controlled - per recent FSBS reports. I have recommended for the patient to have follow up labs prior to the next office visit. The patient has been instructed to continue with current medications as previously directed, continue with regular FSBS monitoring to assure continued control of diabetes. Pt to call for any acute concerns, complaints, or if the blood glucose readings are starting to become less controlled. Hypothyroidism - pt with chronic hypothyroidism, continue with current medication, will monitor pt to signs or symptoms of lack of adequate supplementation. Pt is to continue with current dose of medication unless directed otherwise. Check labs at regular intervals wither q 3 months or q 6 months based on previous levels of control. Left shoulder pain-biceps tendinitis - pt to do exercises as directed, ant- inflammatories directed to be taken per RX instructions and pt to call if symptoms are not improved. . Urticaria - allerg y testing - our office will call to zhang's office to see if they will do allergy testing on her. Check ALYSSA, RA, CRP, ESR, CMP, CBC Hypertension - well controlled - continue with current medications, continue with no added salt diet. Pt has been encouraged to exercise daily. The pt has been advised to call the office if there are any acute concerns about change in blood pressure readings at home. Hyperlipidemia - controlled per last few reports - check Lipids today. . Hypertension - wel l controlled - continue with current medications, continue with no added salt diet. Pt has been encouraged to exercise daily. The pt has been advised to call the office if there are any acute concerns about change in blood pressure readings at home. Diabetes Mellitus - controlled - per recent FSBS reports. I have recommended for the patient to have follow up labs prior to the next office visit. The patient has been instructed to continue with current medications as previously directed, continue with regular FSBS monitoring to assure continued control of diabetes. Pt to call for any acute concerns, complaints, or if the blood glucose readings are starting to become less controlled. . Diabetes Mellitus - worsening control - per recent FSBS reports. I have recommended for the patient to have follow up labs prior to the next office visit. The patient has been instructed to continue with current medications as previously directed, continue with regular FSBS monitoring to assure continued control of diabetes. Pt to call for any acute concerns, complaints, or if the blood glucose readings are starting to become less controlled. Hypertension - well controlled - continue with current medications, continue with no added salt diet. Pt has been encouraged to exercise daily. The pt has been advised to call the office if there are any acute concerns about change in blood pressure readings at home. Hypothyroidism - pt with chronic hypothyroidism, continue with current medication, will monitor pt to signs or symptoms of lack of adequate supplementation. Pt is to continue with current dose of medication unless directed otherwise. Check labs at regular intervals wither q 3 months or q 6 months based on previous levels of control. . Rash-very faint-wi ll culture the rash today-recommend emollient such as eucerin cream or cerave-call if rash does not resolve or if any worse. Patient verbalized understanding of plan. decrease CYMBALTA (D ULOXETINE) TO EVERY OTHER DAY THEN STOP . Hypertension - well controlled - christoph nue with current medications, continue with no added salt diet. Pt has been encouraged to exercise daily. The pt has been advised to call the office if there are any acute concerns about change in blood pressure readings at home. Hypothyroidism - pt with chronic hypothyroidism, continue with current medication, will monitor pt to signs or symptoms of lack of adequate supplementation. Pt is to continue with current dose of medication unless directed otherwise. Check labs at regular intervals wither q 3 months or q 6 months based on previous levels of control. Diabetes Mellitus - I have recommended for the patient to have follow up labs prior to the next office visit. The patient has been instructed to continue with current medications as previously directed, continue with regular FSBS monitoring to assure continued control of diabetes. Pt to call for any acute concerns, complaints, or if the blood glucose readings are starting to become less controlled. Chronic pain-decrease cymbalta as directed and stop-monitor symptoms and call if uncontrolled Gait instabilty-patient going to do PT at [facility] . URI - Pt advised t o increase fluids, vitamin C. Discussed natural and expected course of this diagnosis and need to alert me if symptoms do not follow expected course, or if any worse. RX sent to patient's pharmacy. Allergies - chronic - recommended pt to use allergy medication as prescribed. Pt has been counseled as to the appropriate use of the medication. Pt to call if allergy symptoms are not controlled with the medication. If using nasal spray, instructions as follows: Nasal spray- use twice daily, one spray per nostril twice daily, after 30 minutes, rinse out nose with saline spray.. Use opposite hand per nostril to spray in the nasal steroid allergy spray. . Hypertension - wel l controlled - continue with current medications, continue with no added salt diet. Pt has been encouraged to exercise daily. The pt has been advised to call the office if there are any acute concerns about change in blood pressure readings at home. Decrease dose of metoprolol to 50mg at bedtime. Diabetes Mellitus - controlled - per recent FSBS reports. I have recommended for the patient to have follow up labs prior to the next office visit. The patient has been instructed to continue with current medications as previously directed, continue with regular FSBS monitoring to assure continued control of diabetes. Pt to call for any acute concerns, complaints, or if the blood glucose readings are starting to become less controlled. Hypothyroidism - pt with chronic hypothyroidism, continue with current medication, will monitor pt to signs or symptoms of lack of adequate supplementation. Pt is to continue with current dose of medication unless directed otherwise. Check labs at regular intervals wither q 3 months or q 6 months based on previous levels of control. . HTN and Tachycardi a - htn - controlled at home - see list - and fatigue - therefore, will decrease dose of toprol to 50mg at hs and 25mg in the morning. We will send our note to Dr. Saldana to alert him to the medication changes and the reason behind the change - if her fatigue is improved - this will be a successful change, if not, will need to consider increase back to 100mg toprol XL Monitor you blood hutchins gars as directed at home, record, and bring to the office at your next appointment, or as directed. Monitor your blood sugars at different times throughout the day-fasting, 30 minutes before a meal, 2 hours after a meal, or bedtime are good times to monitor your blood sugars. Monitor your blood pressure at home and record. Bring in your readings to your next appointment, or as directed. Call for chest pain, shortness of breath, headaches, or other concerns. CALL WITH BLOOD PRESSUREI N 1 WEEK. . Diabetes Mellitus-DIABETES AND DIET EDUCATION DISCUSSED IN DETAIL TODAY - I have recommended for the patient to have follow up labs prior to the next office visit. The patient has been instructed to continue with current medications as previously directed, continue with regular FSBS monitoring to assure continued control of diabetes. Pt to call for any acute concerns, complaints, or if the blood glucose readings are starting to become less controlled. I have recommended for the patient to follow more strictly to the diabetic diet as discussed in clinic to allow for greater blood glucose control. Hypertension-ELEVATED TODAY - continue with current medications, continue with no added salt diet. Pt has been encouraged to exercise daily. The pt has been advised to call the office if there are any acute concerns about change in blood pressure readings at home. CALL WITH BLOOD PRESSURE AND PULSE READINGS IN 1 WEEK Pt has increase in muscle aches - recommended pt to decrease her pravastatin to 20mg daily x 2weeks and to talk to her solar installation foreman about potential permanent decrease in her medication if the two week trial of a lower dose has helped to improve her symptoms of muscle aches and joint pain. . Hypothyroidism - pt with chronic hypot hyroidism, continue with current medication, will monitor pt to signs or symptoms of lack of adequate supplementation. Pt is to continue with current dose of medication unless directed otherwise. Check labs at regular intervals wither q 3 months or q 6 months based on previous levels of control. Diabetes Mellitus - controlled - per recent FSBS reports. I have recommended for the patient to have follow up labs prior to the next office visit. The patient has been instructed to continue with current medications as previously directed, continue with regular FSBS monitoring to assure continued control of diabetes. Pt to call for any acute concerns, complaints, or if the blood glucose readings are starting to become less controlled. Pt is to decrease her extra sweets - she is to call the office with her FSBS report in the next month. Hypertension - well controlled - continue with current medications, continue with no added salt diet. Pt has been encouraged to exercise daily. The pt has been advised to call the office if there are any acute concerns about change in blood pressure readings at home. Hyperlipidemia - pt has been counseled about appropriate diet, exercise, and need for low fat food choices. I have discussed the need for the patient to take medications as prescribed. If the patient has negative side effects from the medication, they are to CALL the office and not abruptly discontinue the medication without discussion with a practitioner in the office. We will check labs in 3-6 months for follow up on the patient's chronic medical problem and to assure normal liver response to medications. Pt has increase in muscle aches - recommended pt to decrease her pravastatin to 20mg daily x 2weeks and to talk to her solar installation foreman about potential permanent decrease in her medication if the two week trial of a lower dose has helped to improve her symptoms of muscle aches and joint pain. . Right side pain - The pt is to use prn antiinflammatories to manage acute pain. The patient is to call the office if the pain is worsening or does not improve. Voltaren gel sample given. Hypothyroidism - pt with chronic hypothyroidism, continue with current medication, will monitor pt to signs or symptoms of lack of adequate supplementation. Pt is to continue with current dose of medication unless directed otherwise. Check labs at regular intervals wither q 3 months or q 6 months based on previous levels of control. . Hypertension - wel l controlled - continue with current medications, continue with no added salt diet. Pt has been encouraged to exercise daily. The pt has been advised to call the office if there are any acute concerns about change in blood pressure readings at home. Diabetes Mellitus - controlled - per recent FSBS reports. I have recommended for the patient to have follow up labs prior to the next office visit. The patient has been instructed to continue with current medications as previously directed, continue with regular FSBS monitoring to assure continued control of diabetes. Pt to call for any acute concerns, complaints, or if the blood glucose readings are starting to become less controlled. Hypothyroidism - pt with chronic hypothyroidism, continue with current medication, will monitor pt to signs or symptoms of lack of adequate supplementation. Pt is to continue with current dose of medication unless directed otherwise. Check labs at regular intervals wither q 3 months or q 6 months based on previous levels of control. Try to avoid salt in take Keep lower extremities elevated Keep track of blood pressure, pulse, temperature and weight everyday. Keep a log and bring to next appointment. . Edema- Increased since Friday. pt h as been advised to elevate legs to prevent dependent edema, compression has been recommended to help to naturally decrease peripheral edema. Avoid salt intake. Cracked/dry lower lip-RX to pt's pharmacy. Call office if symptoms worsen. Hypertension - The patient has been counseled to cut back on salt in diet for a no added salt diet, low fat diet, start an exercise program with low weight bearing exercises and higher aerobic activity for heart health. The patient is to check blood pressure readings as an outpatient and either fax, call, or email the readings to the office next week for practitioner to review. The pt is to call for acute concerns. Low grade fever, fatigue- recheck labs today. UA negative, Chest XRAY negative, surgical incisions without s/s infection. CBC, CMP and blood culture today. Patient lives alone and is currently unable to drive. Home Health referral for weakness, weight loss, hypertension, management of edema, recent back surgery. take 1.5 of the curr ent synthroid dose and then once you are out of the 50mcg pill - you will start on the new 75mcg synthroid. increase your protein intake and then decrease your sweets/sugars/carbs start on cholesterol pill every other day . Hypertension - well controlled - christoph nue with current medications, continue with no added salt diet. Pt has been encouraged to exercise daily. The pt has been advised to call the office if there are any acute concerns about change in blood pressure readings at home. Diabetes Mellitus - not optimally controlled - cut back on sugary foods, carbs, etc- per recent FSBS reports. I have recommended for the patient to have follow up labs prior to the next office visit. The patient has been instructed to continue with current medications as previously directed, continue with regular FSBS monitoring to assure continued control of diabetes. Pt to call for any acute concerns, complaints, or if the blood glucose readings are starting to become less controlled. Hypothyroidism - pt with chronic hypothyroidism, continue with current medication, will monitor pt to signs or symptoms of lack of adequate supplementation. Pt is to continue with current dose of medication unless directed otherwise. Check labs at regular intervals q 3 months or q 6 months based on previous levels of control. Not well controlled - increase Synthroid to 75mcg daily. Knee and hip pain - recommended pt to continue with aleve, get [place] to use on your knee and hip three times daily. Hypertension - well controlled - continue with current medications, continue with no added salt diet. Pt has been encouraged to exercise daily. The pt has been advised to call the office if there are any acute concerns about change in blood pressure readings at home. Diabetes Mellitus - controlled - per recent FSBS reports. I have recommended for the patient to have follow up labs prior to the next office visit. The patient has been instructed to continue with current medications as previously directed, continue with regular FSBS monitoring to assure continued control of diabetes. Pt to call for any acute concerns, complaints, or if the blood glucose readings are starting to become less controlled. Knee and hip pain - recommended pt to continue with aleve, get [place] to use on your knee and hip three times daily Hypothyroidism - pt with chronic hypothyroidism, continue with current medication, will monitor pt to signs or symptoms of lack of adequate supplementation. Pt is to continue with current dose of medication unless directed otherwise. Check labs at regular intervals wither q 3 months or q 6 months based on previous levels of control. PT IS TO CHECK HER B LOOD SUGAR LEVELS WHEN SHE HAS SHAKEY SPELLS.. Diabetes Mellitus - controlled - per recent FSBS reports. I have recommended for the patient to have follow up labs prior to the next office visit. The patient has been instructed to continue with current medications as previously directed, continue with regular FSBS monitoring to assure continued control of diabetes. Pt to call for any acute concerns, complaints, or if the blood glucose readings are starting to become less controlled. Hypertension - well controlled - continue with current medications, continue with no added salt diet. Pt has been encouraged to exercise daily. The pt has been advised to call the office if there are any acute concerns about change in blood pressure readings at home. Hypothryoidism - continue with thyroid medication at higher dose - repeat thyroid function studies in 3 months. . Allergic contact d ermatitis - discussed with the patient - avoid the eugene product that has caused this reaction - kenalog injection today, prednisone rx sent to pharmacy. . Diabetes Mellitus - controlled - per recent FSBS reports. I have recommended for the patient to have follow up labs prior to the next office visit. The patient has been instructed to continue with current medications as previously directed, continue with regular FSBS monitoring to assure continued control of diabetes. Pt to call for any acute concerns, complaints, or if the blood glucose readings are starting to become less controlled. Pt is to start more rigorously checking her FSBS - she is to bring by to the office in one month for review - if uncontrolled - will need to consider starting her on new medications. Hypertension - not optimally - continue with current medications, continue with no added salt diet. Pt has been encouraged to exercise daily. The pt has been advised to call the office if there are any acute concerns about change in blood pressure readings at home. Peripheral neuropathy - recommended pt to have new diabetic shoes, need greater diabetic control.
--- OUTSIDE RECORDS SUMMARY | 2020-05-26 12:06 | XMS REPORT | CCD ---
Author Author Aleyda Ott ak Organization Carmelina Ott MD, [facility] Address [facility] [place] [address] Phone Care Team Providers Care Digital Media Intern Name Role Phone PP Unavailable CCM Unavailable Summary Purpose Interface Exchange Insurance Providers Payer name Policy type / Coverage type Covered alliance party ID Effective Begin Date Effective End Date WPS Medicare Part B Medicare Part B [id number] 2013 Unknown [facility] icare Part B [id number] 2013 Unkno wn Family history Brother Diagnosis Age At Onset Heart disease Unknown Sister Diagnosis Age At Onset endometrial cancer Unknown Father Diagnosis Age At Onset Heart disease Unknown Mother Diagnosis Age At Onset Heart disease Unknown Social History Social History Element Codes Description Effective Dates Marital status Unknown W idowed 01/14/[address]: 804331212 Nonsmoker 01/14/2012 Has the patient ever used illegal drugs? Unknown Has never used illegal drugs 012 Allergies, Adverse Reactions, Alerts Substance Reaction Codes Entered Date Inactivated Date Status * NO KNOWN FOOD CAROLA RGIES Unknown 01/14/2012 No Inactive Date Active * NO KNOWN DRUG CAROLA RGIES Unknown 01/14/2012 No Inactive Date Active Past Medical History Illness Codes Condition Status Onset Date Resolved Date Allergic contact hortencia matitis due to cosmetics ICD-9: 692.81 ICD-10: L23.2 Active 06/24/2019 Unknown Rash and other nonsp ecific skin eruption ICD-9: 782.1 ICD-10: R21 Active 03/04/2017 Unknown Atrophy of thyroid ( acquired) ICD-9: 244.8 ICD-10: E03.4 Active 10/23/2016 Unknown Essential (primary) hypertension ICD-9: 401.1 ICD-10: I10 Active 08/20/2016 Unknown Mixed hyperlipidemia ICD-9: 272.4 ICD-10: E78.2 Active 07/07/2014 Unknown Type 2 diabetes moisés itus without complications ICD-9: 250.00 ICD-10: E11.9 Active 07/07/2014 Unknown Acute laryngopharyng itis ICD-9: [...] ICD-9: V70.0 ICD-10: Z00.01 Active 11/03/2016 Unknown Other specified hypo thyroidism ICD-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 ICD-10: E03.8 Active 10/02/2016 Unknown Pain in thoracic spine ICD-9: 724.1 [...] Condition Codes Effectiv e Dates Condition Status Allergic contact hortencia matitis due to cosmetics ICD-9: 692.81 ICD-10: L23.2 06/24/2019 Active Rash and other nonsp ecific skin eruption ICD-9: 782.1 ICD-10: R21 03/04/2017 Active Atrophy of thyroid ( acquired) ICD-9: 244.8 ICD-10: E03.4 10/23/2016 Active Essential (primary) hypertension ICD-9: 401.1 ICD-10: I10 08/20/2016 Active Mixed hyperlipidemia ICD-9: 272.4 ICD-10: E78.2 07/07/2014 Active Type 2 diabetes moisés itus without complications ICD-9: 250.00 ICD-10: E11.9 07/07/2014 Active Acute laryngopharyng itis ICD-9: 465.0 [...] 720.2 ICD-10: M46.1 03/06/2017 Active Encounter for [facility] adult medical examination with abnormal findings ICD-9: V70.0 ICD-10: Z00.01 11/03/2016 Active Other specified hypo thyroidism ICD-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 ICD-10: E03.8 10/02/2016 Active Pain in thoracic spine ICD-9: 724.1 [...] Date Stop Date Sta tus Fill Instructions prednisone 20 mg tablet RxNorm: 842656 2 Tablet(s) PO daily 06/24/2019 06/28/2019 Active Kenalog 40 mg/mL [employer] pension for injection RxNorm: 6317878 Milliliter(s) Inj 06/24/2019 06/24/2019 In active Zithromax Z-Sony 250 mg tablet RxNorm: 397919 Tablet(s) PO UD 02/17/2019 No Stop Date Active Synthroid 50 mcg tablet RxNorm: 092925 TAKE ONE TABLET BY MOUTH DAILY (DISCONTI NUE LEVOTHYROXINE) 12/14/2018 12/08/2019 Active metoprolol succinate ER 50 mg tablet,extended release 24 hr RxNorm: 833003 1 Tablet(s) PO QPM TAKE ONE TABLET BY MOUTH EVERY EVENING 10/20/2018 03/18/2019 Inactive metoprolol succinate ER 50 mg tablet,extended release 24 hr RxNorm: 792547 1 Tablet(s) PO QPM TAKE ONE TABLET BY MOUTH EVERY EVENING 05/08/2018 10/19/2018 Inactive Cymbalta 30 mg capsu le,delayed release RxNorm: 316862 TAKE ONE CAPSULE BY M OUTH DAILY 11/24/2017 11/18/2018 Inactive Synthroid 50 mcg tablet RxNorm: 727813 TAKE ONE TABLET BY MOUTH DAILY (DISCONTI NUE LEVOTHYROXINE) 11/24/2017 12/13/2018 Inactive Voltaren 1 % topical gel RxNorm: 549140 [facility] 11/03 No Stop Date Active metoprolol succinate ER 50 mg tablet,extended release 24 hr RxNorm: 609891 1 Tablet(s) PO QPM TAKE ONE TABLET BY MOUTH EVERY EVENING 10/06/2017 05/03/2018 Inactive Synthroid 50 mcg tablet RxNorm: 848774 TAKE ONE TABLET BY MOUTH DAILY (DISCONTI NUE LEVOTHYROXINE) 09/04/2017 11/23/2017 Inactive Cymbalta 30 mg capsu le,delayed release RxNorm: 218154 1 Capsule(s) PO daily 07/10/2017 10/07/2017 In active metoprolol succinate ER 50 mg tablet,extended release 24 hr RxNorm: 325956 TAKE ONE TABLET BY MOUTH EVERY EVENING 03/06/2017 10/01/2017 Inactive Kenalog 40 mg/mL marguerite pension for injection RxNorm: 4513023 Milliliter(s) Inj 09/03/2016 09/03/2016 In active tramadol 50 mg tablet RxNorm: 427912 1 Tablet(s) PO Q4-6H as needed 08/21/2016 No Stop Date Active Synthroid 50 mcg tablet RxNorm: 078680 1 Tablet(s) PO daily 08/21/2016 08/15/2017 Inactive DC levothyroxine metoprolol succinate ER 25 mg tablet,extended release 24 hr RxNorm: 521144 1 Tablet(s) PO QAM 07/24/2016 08/20/2016 Inactive metoprolol succinate ER 50 mg tablet,extended release 24 hr RxNorm: 268495 1 Tablet(s) PO QPM 07/24/2016 02/18/2017 Inactive Synthroid 50 mcg tablet RxNorm: 812418 1 Tablet(s) PO daily 06/10/2016 08/20/2016 Inactive DC levothyroxine Synthroid 50 mcg tablet RxNorm: 379659 1 Tablet(s) PO daily 05/16/2016 06/09/2016 Inactive hydrocortisone 2.5 % topical cream RxNorm: 485919 1 Application TOP TID 05/08/2016 08/05/2016 In active hydrocortisone 2.5 % topical cream RxNorm: 467861 1 Application TOP TID 05/08/2016 05/07/2016 In active betamethasone diprop ionate 0.05 % topical cream RxNorm: 727811 1 Application TOP BID as needed 04/24/2016 05/07/2016 Inactive betamethasone diprop ionate 0.05 % topical cream RxNorm: 755296 1 Application TOP BID as needed 04/24/2016 04/23/2016 Inactive loratadine 10 mg tablet RxNorm: 142445 1 Tablet(s) PO daily 01/18/2016 05/16/2016 Inactive loratadine 10 mg dis integrating tablet RxNorm: 052855 1 Tablet(s) PO daily 01/18/2016 01/17/2016 In active Synthroid 50 mcg tablet RxNorm: 888775 1 Tablet(s) PO daily 01/01/2016 04/29/2016 Inactive Synthroid 50 mcg tablet RxNorm: 607982 1 Tablet(s) PO daily 01/01/2016 12/31/2015 Inactive prednisone 20 mg tablet RxNorm: 284028 3 Tablet(s) PO daily 09/11/2015 09/15/2015 Inactive prednisone 20 mg tablet RxNorm: 270153 3 Tablet(s) PO daily 09/11/2015 09/10/2015 Inactive Abreva 10 % topical cream RxNorm: 008859 1 Application TOP 5x daily 06/23/2015 07/12/2015 Inactive Apply to lip lesions 5 times per day for 10 days prednisone 20 mg tablet RxNorm: 778883 2 Tablet(s) PO daily x3 06/12/2015 06/14/2015 Inactive prednisone 20 mg tablet RxNorm: 145531 2 Tablet(s) PO daily x3 06/12/2015 06/11/2015 Inactive Kenalog 40 mg/mL marguerite pension for injection RxNorm: 4883258 1 Milliliter(s) Inj 03/28/2015 03/28/2015 In active hydrocodone 7.5 mg-a cetaminophen 325 mg tablet RxNorm: 840277 1 Tablet(s) PO Q4-6H as needed for back pain 03/28/2015 06/11/2015 Inactive Synthroid 50 mcg tablet RxNorm: 819738 1 Tablet(s) PO daily TAKE ONE TABLET BY MOUTH EVERY DAY 12/12/2014 12/11/2014 Inactive Synthroid 50 mcg tablet RxNorm: 433945 TAKE ONE TABLET BY MOUTH EVERY DAY 12/12/2014 12/20/2015 In active hydrocodone 7.5 mg-a cetaminophen 325 mg tablet RxNorm: 685706 1 Tablet(s) PO Q4-6H as needed for back pain 07/07/2014 09/04/2014 Inactive Synthroid 50 mcg tablet RxNorm: 953181 1 Tablet(s) PO daily TAKE ONE TABLET BY MOUTH EVERY DAY 07/07/2014 12/11/2014 Inactive Synthroid 50 mcg tablet RxNorm: 778725 TAKE ONE TABLET BY MOUTH EVERY DAY 06/06/2014 06/10/2014 In active Synthroid 50 mcg tablet RxNorm: 648941 TAKE ONE TABLET BY MOUTH EVERY DAY 06/06/2014 06/10/2014 In active Singulair 10 mg tablet RxNorm: 788816 Tablet(s) PO TAKE ONE TABLET BY MOUTH EV FCO DAY 03/03/2014 06/22/2015 Inactive hydrocodone 5 mg-kristofer taminophen 500 mg tablet RxNorm: 946645 Tablet(s) PO PRN 01/20/2014 07/06/2014 In active Synthroid 50 mcg tablet RxNorm: 214816 1 Tablet(s) PO daily name brand only 12/14/2013 12/13/2013 In active name brand only Synthroid 50 mcg tablet RxNorm: 191957 1 Tablet(s) PO daily name brand only 12/14/2013 06/05/2014 In active name brand only Januvia 50 mg tablet RxNorm: 817909 1 Tablet(s) PO daily 03/24/2013 05/25/2013 Inactive Singulair 10 mg tablet RxNorm: 174221 Tablet(s) PO TAKE ONE TABLET BY MOUTH EV FCO DAY 03/02/2013 03/02/2014 Inactive levothyroxine 50 mcg tablet RxNorm: 677514 1 Tablet(s) PO daily 02/03/2013 02/02/2013 Inactive levothyroxine 50 mcg tablet RxNorm: 639997 1 Tablet(s) PO daily 02/03/2013 10/18/2013 Inactive levothyroxine 25 mcg tablet RxNorm: 582992 1 1/2 Tablet(s) PO daily 01/29/2013 02/02/2013 Inactive one and one half tab daily (1 2)march zhang ve 90 day supply if cheaper levothyroxine 25 mcg tablet RxNorm: 263309 Tablet(s) PO TAKE 1 A ND 1/2 TABLETS ONCE DAILY 11/02/2012 05/25/2013 Inactive glipizide 5 mg tablet RxNorm: 207707 Tablet(s) PO TAKE ONE-HALF TABLET BY ADÁN TH EVERY DAY 10/19/2012 05/25/2013 Inactive metformin 500 mg tablet RxNorm: 733151 Tablet(s) PO TAKE ONE-HALF TABLET BY ADÁN TH TWICE A DAY 10/19/2012 05/25/2013 Inactive Voltaren 1 % Topical Gel RxNorm: 384693 4 Gram(s) TOP QID 10/01/2012 12/25/2015 Inactive levothyroxine 25 mcg tablet RxNorm: 316773 1 1/2 Tablet(s) PO daily 08/03/2012 01/28/2013 Inactive one and one half tab daily (1 11/18)may zhang ve 90 day supply if cheaper metformin 500 mg tablet RxNorm: 254760 1/2 Tablet(s) PO BID 03/03/2012 08/29/2012 Inactive glipizide 5 mg Tab RxNorm: 781576 1/2 Tablet(s) PO daily 03/03/2012 03/02/2012 Inactive metformin 500 mg Tab RxNorm: 013917 1/2 Tablet(s) PO BID 03/03/2012 03/02/2012 Inactive glipizide 5 mg tablet RxNorm: 033636 1/2 Tablet(s) PO daily 03/03/2012 08/29/2012 Inactive Singulair 10 mg tablet RxNorm: 120860 1 Tablet(s) PO daily 03/02/2012 03/01/2013 Inactive Bactrim DS 800 mg-16 0 mg Tab RxNorm: 327850 1 Tablet(s) PO BID 02/11/2012 02/20/2012 Inactive fluconazole 150 mg Tab RxNorm: 017294 1 Tablet(s) PO daily 02/11/2012 05/25/2013 Inactive levothyroxine 25 mcg tablet RxNorm: 681197 1 /2 Tablet(s) PO daily 01/15/2012 07/12/2012 Inactive one and one half tab daily (11/18)march zhang ve 90 day supply if cheaper levothyroxine 100 mc g Tab RxNorm: 079365 1 Tablet(s) PO daily 09/04/2011 01/14/2012 Inactive Singulair 10 mg Tab RxNorm: 631655 1 Tablet(s) PO daily 09/04/2011 03/01/2012 Inactive zinc lozenges RxNorm: 1 PO QHS No Start Date Active Vitamin B-6 100 mg t ablet RxNorm: 230681 2 Tablet(s) PO QPM No Start Date Active Zinc Chelate 15 mg t ablet RxNorm: 1 Tablet(s) PO daily with 1 ,000 mg calcium No Start Date Active Vitamin D3 2,000 uni t tablet RxNorm: 766014 1 Tablet(s) PO QPM No Start Date Active Artificial Tears RxNorm: 447377 ophthalmic No Start Date Active Nitrostat 0.4 mg Sub lingual Tab RxNorm: 884857 Tablet(s) SL PRN No Start Date Active Vitamin C 100 mg tablet RxNorm: 207849 1 Tablet(s) PO QHS No Start Date Active Fish Oil 360 mg-1,20 0 mg capsule RxNorm: 367754 1 Capsule(s) PO daily No Start Date Active latanoprost 0.005 % eye drops RxNorm: 143013 1 Drop(s) OPH each ey e QHS No Start Date Active Vitamin B-12 1,000 m cg tablet RxNorm: 676618 1 Tablet(s) PO daily No Start Date Active [place] Saline nasal RxNorm: 9863 nasal No Start Date Active Flintstones Complete oral RxNorm: oral No Start D ate Active aspirin 81 mg Tab, D elayed Release RxNorm: 865971 1 Tablet(s) PO daily No Start Date Active vitamin D3-[place] ne 7 Oral RxNorm: Oral No Start D ate 12/26/2015 Inactive vitamin B6-vitamin E -magnesium Tab RxNorm: 1 Tablet(s) PO daily No Start Date 12/26/2015 Inactive Zinc Chelate 15 mg t ablet RxNorm: 1 Tablet(s) PO daily with 4 00 mg Magnesium No Start Date 10/23/2016 Inactive pravastatin 20 mg ta blet RxNorm: 982971 1 Tablet(s) PO daily No Start Date 01/19/2014 Inactive Zocor 20 mg Tab RxNorm: 083510 1 Tablet(s) PO QHS No Start Date 05/25/2013 Inactive Plavix 75 mg tablet RxNorm: 854902 1 Tablet(s) PO daily No Start Date 03/28/2015 Inactive metoprolol succinate ER 100 mg tablet,extended release 24 hr RxNorm: 977378 1 Tablet(s) PO daily No Start Date 07/23/2016 Inactive Januvia 100 mg Tab RxNorm: 285452 1 Tablet(s) PO daily No Start Date 05/25/2013 Inactive tramadol 50 mg tablet RxNorm: 206046 1 Tablet(s) PO as needed No Start Date 08/20/2016 Inactive Flintstones Complete Oral RxNorm: Oral No Start D ate 12/26/2015 Inactive Plavix 75 mg Tab RxNorm: 205505 1 Tablet(s) PO every other day No Start Date 05/25/2013 Inactive Accu-Chek Compact Te st strips RxNorm: 1 test Miscellaneous BID No Start Date 10/22/2016 Inactive accu-chek compact plus Accu-Chek Softclix L ancets RxNorm: 1 test Miscellaneous daily No Start Date 10/22/2016 Inactive Fish Oil 1,000 mg Cap RxNorm: 1 Capsule(s) PO daily No Start Date 12/26/2015 Inactive Januvia 50 mg tablet RxNorm: 595384 Tablet(s) PO No Start Date 03/23/2013 Inactive hydrocodone 5 mg-kristofer taminophen 500 mg tablet RxNorm: 719511 Tablet(s) PO PRN No Start Date 01/19/2014 Inactive Synthroid 50 mcg tablet RxNorm: 869858 1 Tablet(s) PO daily name brand only No Start Date 12/13/2013 Inactive name brand only pravastatin 20 mg ta blet RxNorm: 429710 1 Tablet(s) PO QHS No Start Date 06/24/2019 Inactive levothyroxine 25 mcg Tab RxNorm: 040456 1 Tablet(s) PO daily 1 tab q morning on empty stomach No Start Date 01/13/2012 Inactive metoprolol succinate ER 50 mg 24 hr Tab RxNorm: 743680 1 Tablet(s) PO daily No Start Date 12/25/2015 Inactive pravastatin 40 mg ta blet RxNorm: 923832 Tablet(s) PO No Start Date 12/25/2015 Inactive latanoprost Opht RxNorm: Ophthalmic No Start Date 12/26/2015 Inactive cranberry Oral RxNorm: Oral No Start Date 06/22/2015 Inactive Medication Administered Medication Codes Instruc tions Start Date Status Kenalog 40 mg/mL suspension for injection RxNorm: 6125785 Milliliter 06/24/2019 No longer Active Kenalog 40 mg/mL suspension for injection RxNorm: 8024366 Milliliter 09/03/2016 No longer Active Kenalog 40 mg/mL suspension for injection RxNorm: 0220208 1Milliliter 03/28/2015 N o longer Active Immunizations Vaccine Codes Date Status PPD Unknown 06/23/2015 completed Influenza CVX: 141 10/19 completed Assessments Condition Codes Effectiv e Dates Rash and other nonspecific skin eruption ICD-10: R21 ICD-9: 782.1 06/24/2019 Allergic contact dermatitis due to cosmetics ICD-10: L23.2 ICD-9: 692.81 06/24/2019 Atrophy of thyroid (acquired) ICD-10 : E03.4 ICD-9: 244.8 04/21/2019 Essential (primary) hypertension ICD -10: I10 ICD-9: 401.1 04/21/2019 Type 2 diabetes mellitus without complications ICD-10: E11.9 ICD-9: 250.00 04/21/2019 Mixed hyperlipidemia ICD-10: E78.2 ICD-9: 272.4 [...] abnormal findings ICD-10: Z00.01 ICD-9: V70.0 11/04/2016 Other specified hypothyroidism ICD-1 0: E03.8 ICD-9: 244.8 10/03/2016 Pain in thoracic spine ICD-10: M54.6 ICD-9: [...] Visit Reason For Visit Effective Dates Notes rash 06/24/2019 hypertension 04/21/2019 sore throat 02/17/2019 [...] 30.1 pg 06/25/2019 Cbc With Differential Ord2 Storey% 9.1 % 06/25/2019 Cbc With Differential Ord2 MCHC 33.0 pg 06/25/2019 Cbc With Differential Ord2 Eos% 1.5 % 06/25/2019 Cbc With Differential Ord2 PLT 277 K/ul 06/25/2019 Cbc With Differential Ord2 Baso% 0.3 % 06/25/2019 Cbc With Differential Ord2 RDW 13.8 % 06/25/2019 Cbc With Differential Ord2 Neut ABS# 4.54 K/ul 06/25/2019 Cbc With Differential Ord2 Lymph ABS# 1.90 K/ul 06/25/2019 Cbc With Differential Ord2 Storey ABS# 0.7 K/ul 06/25/2019 Cbc With Differential Ord2 Eos ABS# 0.1 K/ul 06/25/2019 Cbc With Differential Ord2 Baso ABS# 0.0 K/ul 06/25/2019 Lipid Ord30 CHOL 152 mg/dL 12/30/2018 Lipid Ord30 HDL 44.0 mg/dl 12/30/2018 Lipid Ord30 TRIG 224 mg/dL 12/30/2018 Lipid Ord30 LDL 63 mg/dL 12/30/2018 Lipid Ord30 C/HDL 3.5 Ratio 12/30/2018 Free T4 Fux002 FREE T4 0.64 ng/dL 12/30/2018 %Hba1C Iuq950 % HbA1c 75040-3 6.9 % 12/30/2018 %Hba1C Fni246 Gluc Ave 151 mg/dL 12/30/2018 Comp Metabolic Nsm437 NA 140 mEq/L 12/30/2018 Comp Metabolic Sva347 K 4.5 mEq/L 12/30/2018 Comp Metabolic Rab087 CL 107 mEq/L 12/30/2018 Comp Metabolic Knj258 CO2 25.0 mEq/L 12/30/2018 Comp Metabolic Grd874 AN ION GAP 13 12/30/2018 Comp Metabolic Igd822 GL UCOSE 117 mg/dL 12/30/2018 Comp Metabolic Ihb735 Cr eat 0.8 mg/dL 12/30/2018 Comp Metabolic Imj804 eG FR 79 ml/min/1.73m2 12/30 Comp Metabolic Uhm173 BUN 17 mg/dL 12/30/2018 Comp Metabolic Hdk924 B/ C Ratio 22.4 Ratio 12/30/2018 Comp Metabolic Qif063 CA LCIUM 9.6 mg/dL 12/30/2018 Comp Metabolic Wbm648 AL K PHOS 69 U/L 12/30/2018 Comp Metabolic Xjg354 T(SGOT) 23 U/L 12/30/2018 Comp Metabolic Ptq005 AL T(SGPT) 30 U/L 12/30/2018 Comp Metabolic Fec150 BI LI T 0.4 mg/dL 12/30/2018 Comp Metabolic Qyw027 AL BUMIN 4.2 g/dL 12/30/2018 Comp Metabolic Lua540 TP RO 6.6 g/dL 12/30/2018 Comp Metabolic Ang085 GL OB 2.4 g/dL 12/30/2018 Comp Metabolic Dpy475 A/ G Ratio 1.8 Ratio 12/30/2018 Comp Metabolic Qgv698 Os mo 282 mOsmo 12/30/2018 Tsh Ord6 [...] 31.0 pg 12/30/2018 Cbc With Differential Ord2 Storey% 8.1 % 12/30/2018 Cbc With Differential Ord2 [...] 1.83 K/ul 12/30/2018 Cbc With Differential Ord2 Storey ABS# 0.5 K/ul 12/30/2018 Cbc With Differential Ord2 Eos ABS# 0.1 K/ul 12/30/2018 Cbc With Differential Ord2 Baso ABS# 0.0 K/ul 12/30/2018 Comp Metabolic Jqj117 NA 138 mEq/L 02/24/2018 Comp Metabolic Jbr725 K 4.3 mEq/L 02/24/2018 Comp Metabolic Cbw093 CL 103 mEq/L 02/24/2018 Comp Metabolic Bbf137 CO2 27.0 mEq/L 02/24/2018 Comp Metabolic Zva600 AN ION GAP 12 02/24/2018 Comp Metabolic Nmg536 GL UCOSE 96 mg/dL 02/24/2018 Comp Metabolic Rra502 Cr eat 0.7 mg/dL 02/24/2018 Comp Metabolic Bpe369 eG FR 86 ml/min/1.73m2 02/24 Comp Metabolic Leq565 BUN 17 mg/dL 02/24/2018 Comp Metabolic Dss171 B/ C Ratio 23.9 Ratio 02/24/2018 Comp Metabolic Bbb589 CA LCIUM 9.2 mg/dL 02/24/2018 Comp Metabolic Igd661 AL K PHOS 67 U/L 02/24/2018 Comp Metabolic Ctl833 T(SGOT) 25 U/L 02/24/2018 Comp Metabolic Ukf789 AL T(SGPT) 25 U/L 02/24/2018 Comp Metabolic Tsq454 BI LI T 0.3 mg/dL 02/24/2018 Comp Metabolic Eyv378 AL BUMIN 3.9 g/dL 02/24/2018 Comp Metabolic Yxo400 TP RO 6.5 g/dL 02/24/2018 Comp Metabolic Xjt746 GL OB 2.6 g/dL 02/24/2018 Comp Metabolic Aeq909 A/ G Ratio 1.5 Ratio 02/24/2018 Comp Metabolic Ded026 Os mo 277 mOsmo 02/24/2018 Free T4 Kff853 FREE T4 0.71 ng/dL 02/24/2018 Tsh Ord6 TSH (3rd IS) 2.53 uIU/mL 02/24/2018 B12 Bnq554 B12 360.00 pg/ml 02/24/2018 Cbc With Differential [...] 30.4 pg 02/24/2018 Cbc With Differential Ord2 Storey% 11.3 % 02/24/2018 Cbc With Differential Ord2 [...] 2.18 K/ul 02/24/2018 Cbc With Differential Ord2 Storey ABS# 0.8 K/ul 02/24/2018 Cbc With Differential Ord2 Eos ABS# 0.2 K/ul 02/24/2018 Cbc With Differential Ord2 Baso ABS# 0.0 K/ul 02/24/2018 %Hba1C Ihv282 % HbA1c 16158-3 6.5 % 02/24/2018 %Hba1C Wrl097 Gluc Ave 140 mg/dL 02/24/2018 Tsh Ord6 hTSH II 3.98 uIU/mL 11/03/2017 Comp Metabolic Zqc280 NA 139 mEq/L 11/03/2017 Comp Metabolic Zpp242 K 4.1 mEq/L 11/03/2017 Comp Metabolic Typ320 CL 102 mEq/L 11/03/2017 Comp Metabolic Nza587 CO2 28.0 mEq/L 11/03/2017 Comp Metabolic Kqb476 AN ION GAP 13 11/03/2017 Comp Metabolic Ktz264 GL UCOSE 96 mg/dL 11/03/2017 Comp Metabolic Kcz807 Cr eat 0.8 mg/dL 11/03/2017 Comp Metabolic Heg395 eG FR 80 ml/min/1.73m2 11/03 Comp Metabolic Ioo480 BUN 16 mg/dL 11/03/2017 Comp Metabolic Qhc015 B/ C Ratio 21.3 Ratio 11/03/2017 Comp Metabolic Rih438 CA LCIUM 9.5 mg/dL 11/03/2017 Comp Metabolic Rgy686 AL K PHOS 73 U/L 11/03/2017 Comp Metabolic Efq606 T(SGOT) 26 U/L 11/03/2017 Comp Metabolic Zef765 AL T(SGPT) 22 U/L 11/03/2017 Comp Metabolic Wyv603 BI LI T 0.4 mg/dL 11/03/2017 Comp Metabolic Ivn528 AL BUMIN 4.1 g/dL 11/03/2017 Comp Metabolic Pau105 TP RO 6.3 g/dL 11/03/2017 Comp Metabolic Ati301 GL OB 2.2 g/dL 11/03/2017 Comp Metabolic Ept316 A/ G Ratio 1.9 Ratio 11/03/2017 Comp Metabolic Fub741 Os mo 279 mOsmo 11/03/2017 Cbc With [...] 29.8 pg 11/03/2017 Cbc With Differential Ord2 Storey% 10.4 % 11/03/2017 Cbc With Differential Ord2 [...] 2.18 K/ul 11/03/2017 Cbc With Differential Ord2 Storey ABS# 0.7 K/ul 11/03/2017 Cbc With Differential Ord2 Eos ABS# 0.1 K/ul 11/03/2017 Cbc With Differential Ord2 Baso ABS# 0.0 K/ul 11/03/2017 Free T4 Cec608 FREE T4 0.75 ng/dL 11/03/2017 %Hba1C Czi801 % HbA1c 65892-2 6.4 % 11/03/2017 %Hba1C Erw672 Gluc Ave 137 mg/dL 11/03/2017 Tsh Ord6 hTSH II 1.77 uIU/mL 03/04/2017 Lipid Ord30 CHOL 125 mg/dL 03/04/2017 Lipid Ord30 HDL 38.0 mg/dl 03/04/2017 Lipid Ord30 TRIG 144 mg/dL 03/04/2017 Lipid Ord30 LDL 58 mg/dL 03/04/2017 Lipid Ord30 C/HDL 3.3 Ratio 03/04/2017 Microalbumin Wlp448 Micr oAlb <0.7 mg/dL 03/04/2017 Comp Metabolic Iui445 NA 139 mEq/L 03/04/2017 Comp Metabolic Tec136 K 4.4 mEq/L 03/04/2017 Comp Metabolic Gtt408 CL 104 mEq/L 03/04/2017 Comp Metabolic Xax610 CO2 27.0 mEq/L 03/04/2017 Comp Metabolic Ctq140 AN ION GAP 12 03/04/2017 Comp Metabolic Sdc866 GL UCOSE 95 mg/dL 03/04/2017 Comp Metabolic Wll319 Cr eat 0.8 mg/dL 03/04/2017 Comp Metabolic Qkz853 eG FR 79 ml/min/1.73m2 03/04 Comp Metabolic Mlk030 BUN 13 mg/dL 03/04/2017 Comp Metabolic Fmu401 B/ C Ratio 17.1 Ratio 03/04/2017 Comp Metabolic Etg591 CA LCIUM 9.2 mg/dL 03/04/2017 Comp Metabolic Pgr036 AL K PHOS 62 U/L 03/04/2017 Comp Metabolic Inb332 T(SGOT) 22 U/L 03/04/2017 Comp Metabolic Ern684 AL T(SGPT) 22 U/L 03/04/2017 Comp Metabolic Jdh841 BI LI T 0.5 mg/dL 03/04/2017 Comp Metabolic Wcb282 AL BUMIN 3.8 g/dL 03/04/2017 Comp Metabolic Kto917 TP RO 6.2 g/dL 03/04/2017 Comp Metabolic Llh782 GL OB 2.4 g/dL 03/04/2017 Comp Metabolic Xac452 A/ G Ratio 1.6 Ratio 03/04/2017 Comp Metabolic Yko621 Os mo 277 mOsmo 03/04/2017 %Hba1C Bzb047 % HbA1c 41202-7 6.2 % 03/04/2017 %Hba1C Bob430 Gluc Ave 131 mg/dL 03/04/2017 Cbc With [...] 30.6 pg 03/04/2017 Cbc With Differential Ord2 Storey% 9.6 % 03/04/2017 Cbc With Differential Ord2 [...] 1.84 K/ul 03/04/2017 Cbc With Differential Ord2 Storey ABS# 0.6 K/ul 03/04/2017 Cbc With Differential Ord2 Eos ABS# 0.1 K/ul 03/04/2017 Cbc With Differential Ord2 Baso ABS# 0.0 K/ul 03/04/2017 B12 Pfx068 B12 440.00 pg/ml 10/04/2016 Free T4 Oqg516 FREE T4 0.77 ng/dL 10/04/2016 Cbc With [...] 30.6 pg 10/04/2016 Cbc With Differential Ord2 Storey% 8.0 % 10/04/2016 Cbc With Differential Ord2 [...] 2.77 K/ul 10/04/2016 Cbc With Differential Ord2 Storey ABS# 0.7 K/ul 10/04/2016 Cbc With Differential Ord2 Eos ABS# 0.1 K/ul 10/04/2016 Cbc With Differential Ord2 Baso ABS# 0.0 K/ul 10/04/2016 Comp Metabolic Tjc205 NA 136 mEq/L 10/04/2016 Comp Metabolic Iuz589 K 4.0 mEq/L 10/04/2016 Comp Metabolic Qbt559 CL 100 mEq/L 10/04/2016 Comp Metabolic Kjp872 CO2 29.0 mEq/L 10/04/2016 Comp Metabolic Zhv439 AN ION GAP 11 10/04/2016 Comp Metabolic Fka957 GL UCOSE 92 mg/dL 10/04/2016 Comp Metabolic Rat812 Cr eat 0.7 mg/dL 10/04/2016 Comp Metabolic Zgh838 eG FR 85 ml/min/1.73m2 10/04 Comp Metabolic Efx203 BUN 17 mg/dL 10/04/2016 Comp Metabolic Zig936 B/ C Ratio 23.6 Ratio 10/04/2016 Comp Metabolic Ula970 CA LCIUM 9.7 mg/dL 10/04/2016 Comp Metabolic Eqt126 AL K PHOS 86 U/L 10/04/2016 Comp Metabolic Fnw520 T(SGOT) 23 U/L 10/04/2016 Comp Metabolic Kwx594 AL T(SGPT) 27 U/L 10/04/2016 Comp Metabolic Pxk595 BI LI T 0.3 mg/dL 10/04/2016 Comp Metabolic Pgs121 AL BUMIN 4.3 g/dL 10/04/2016 Comp Metabolic Aht806 TP RO 6.9 g/dL 10/04/2016 Comp Metabolic Ckv481 GL OB 2.6 g/dL 10/04/2016 Comp Metabolic Gzq490 A/ G Ratio 1.6 Ratio 10/04/2016 Comp Metabolic Kku761 Os mo 273 mOsmo 10/04/2016 Tsh Ord6 hTSH II 3.75 uIU/mL 10/04/2016 Free T4 Pjs018 FREE T4 0.68 ng/dL 05/17/2016 Tsh Ord6 hTSH II 3.31 uIU/mL 05/17/2016 Alyssa Reflex Profile [id number] ALYSSA (MARCELLA) SCREEN NONE DETECTED 016 Tsh Ord6 hTSH II 6.78 uIU/mL 12/22/2015 C-Reactive Protein Qnt Crqnt CRP 0.2 mg/dl 12/22/2015 Sed Rate Ord21 ESR 15 mm/hr 12/22/2015 Free T4 Hoh718 FREE T4 0.70 ng/dL 12/22/2015 Comp Metabolic Ohk812 NA 138 mEq/L 12/22/2015 Comp Metabolic Uzn167 K 4.3 mEq/L 12/22/2015 Comp Metabolic Lgp909 CL 102 mEq/L 12/22/2015 Comp Metabolic Nfr839 CO2 28.0 mEq/L 12/22/2015 Comp Metabolic Igf092 AN ION GAP 12 12/22/2015 Comp Metabolic Kaj248 GL UCOSE 114 mg/dL 12/22/2015 Comp Metabolic Pgt201 Cr eat 0.8 mg/dL 12/22/2015 Comp Metabolic Hbt452 eG FR 80 ml/min/1.73m2 12/22 Comp Metabolic Yhu067 BUN 18 mg/dL 12/22/2015 Comp Metabolic Guq954 B/ C Ratio 23.7 Ratio 12/22/2015 Comp Metabolic Cxl450 CA LCIUM 9.4 mg/dL 12/22/2015 Comp Metabolic Arb035 AL K PHOS 75 U/L 12/22/2015 Comp Metabolic Gia791 T(SGOT) 19 U/L 12/22/2015 Comp Metabolic Ckw818 AL T(SGPT) 20 U/L 12/22/2015 Comp Metabolic Dlw723 BI LI T 0.5 mg/dL 12/22/2015 Comp Metabolic Lxq092 AL BUMIN 3.9 g/dL 12/22/2015 Comp Metabolic Yrq360 TP RO 6.2 g/dL 12/22/2015 Comp Metabolic Zda372 GL OB 2.3 g/dL 12/22/2015 Comp Metabolic Goa167 A/ G Ratio 1.7 Ratio 12/22/2015 Comp Metabolic Xmi853 Os mo 278 mOsmo 12/22/2015 Ra Factor Vmd799 RA FACT OR <10 IU/ml 12/22/2015 Lipid Ord30 CHOL 150 mg/dL 12/22/2015 Lipid Ord30 HDL 49.0 mg/dl 12/22/2015 Lipid Ord30 TRIG 108 mg/dL 12/22/2015 Lipid Ord30 LDL 79 mg/dL 12/22/2015 Lipid Ord30 C/HDL 3.1 Ratio 12/22/2015 %Hba1C Cny075 % HbA1c 09031-0 6.2 % 12/22/2015 %Hba1C Dfw677 Gluc Ave 131 mg/dL 12/22/2015 Cbc With [...] 30.0 pg 12/22/2015 Cbc With Differential Ord2 Storey% 7.5 % 12/22/2015 Cbc With Differential Ord2 [...] 2.06 K/ul 12/22/2015 Cbc With Differential Ord2 Storey ABS# 0.4 K/ul 12/22/2015 Cbc With Differential [...] Ord2 RDW 14.2 % 06/21/2015 Comp Metabolic Ttf738 NA 135 mEq/L 06/21/2015 Comp Metabolic Nxt412 K 4.2 mEq/L 06/21/2015 Comp Metabolic Rhg074 CL 99 mEq/L 06/21/2015 Comp Metabolic Uri025 CO2 27.0 mEq/L 06/21/2015 Comp Metabolic Vri018 AN ION GAP 13 06/21/2015 Comp Metabolic Gwq546 GL UCOSE 94 mg/dL 06/21/2015 Comp Metabolic Hsp024 Cr eat 0.8 mg/dL 06/21/2015 Comp Metabolic Ify195 eG FR 81 ml/min/1.73m2 06/21 Comp Metabolic Ibf041 BUN 16 mg/dL 06/21/2015 Comp Metabolic Gxx610 B/ C Ratio 21.3 Ratio 06/21/2015 Comp Metabolic Fky555 CA LCIUM 9.4 mg/dL 06/21/2015 Comp Metabolic Don615 AL K PHOS 164 U/L 06/21/2015 Comp Metabolic Vjc214 T(SGOT) 22 U/L 06/21/2015 Comp Metabolic Ofm104 AL T(SGPT) 23 U/L 06/21/2015 Comp Metabolic Nmi121 BI LI T 0.4 mg/dL 06/21/2015 Comp Metabolic Yjg357 AL BUMIN 4.0 g/dL 06/21/2015 Comp Metabolic Tto230 TP RO 6.6 g/dL 06/21/2015 Comp Metabolic Apl303 GL OB 2.6 g/dL 06/21/2015 Comp Metabolic Nna213 A/ G Ratio 1.5 Ratio 06/21/2015 Comp Metabolic Vaf010 Os mo 271 mOsmo 06/21/2015 URINALYSIS NONAUTO W/O SCOPE 80621 Specific [place] 1.010 DateTime(Free Text in ) URINALYSIS NONAUTO W/O SCOPE 25786 PH 6.0 DateTime(Free [place] t in ) URINALYSIS NONAUTO W/O SCOPE 58136 GLUCOSE NEG DateTime(Free [place] t in ) URINALYSIS NONAUTO W/O SCOPE 55097 Protein NEG DateTime(Free [place] t in Apr) URINALYSIS NONAUTO W/O SCOPE 87816 Blood TRACE DateTime(Free T ext in ) URINALYSIS NONAUTO W/O SCOPE 99564 Bilirubin NEG DateTime(Free [place] t in ) URINALYSIS NONAUTO W/O SCOPE 62422 Ketones NEG DateTime(Free Te xt in ) URINALYSIS NONAUTO W/O SCOPE 04823 Urobilinogen NEG DateTime(Free Text in Aprima) URINALYSIS NONAUTO W/O SCOPE 52550 Nitrite NEG DateTime(Free [place] t in Apr) URINALYSIS NONAUTO W/O SCOPE 27444 Leukocytes NEG DateTime(Free Text in Apr) UA 90165 Specific [place] 1.020 DateTime(Free Text in ) UA 64953 PH 5.0 DateTime(Free Text in Aprima ) UA 67248 Protein neg DateTime(Free Text in Aprima ) UA 06419 Blood neg DateTime(Free Text in Aprima ) UA 46042 Bilirubin neg DateTime(Free Text in Aprima ) UA 88195 Ketones neg DateTime(Free Text in ) UA 63033 Urobilinogen 0.2 DateTime(Free Text in ) UA 49085 Nitrite neg DateTime(Free Text in ) UA 66483 Leukocytes neg DateTime(Free Text in ) Review of Systems System Result Effective Dates Constitutional No recent illness 06/24/2019 Cardiovascular hypertension [...] 04/21/2019 Neurologic paresthesia 0 04/21/2019 Psychiatric anxiety 06/03/2019 Psychiatric depression 0 04/21/2019 Endocrine diabetes mellitus [...] Effective Dates Notes Full Exam - General 1995 Constitutional general appearance Overall: well nourished 06/24/2019 None Full Exam - General 1994 Constitutional general appearance Overall: well developed 06/24/2019 None Full Exam - General 1994 Constitutional general appearance Overall: in no acute distress 06/24/2019 None Full Exam - General 1994 Eyes pupils and irises Overall: pupils equal, round, reactive to light and accomodation 06/24/2019 None Full Exam - General 1995 Ears/Nose/Throat oral cavity/pharynx/larynx Overall: oropharyngeal mucosa clear 06/24/2019 None Full Exam - General 1994 Ears/Nose/Throat oral cavity/pharynx/larynx Overall: no masses 06/24/2019 [...] accomodation 04/21/2019 None Full Exam - General 1995 [...] 1994 Ears/Nose/Throat oral cavity/pharynx/larynx Overall: no masses 04/21/2019 [...] tenderness 01/20/2014 None Full Exam - General 1995 Abdomen [...] clear 10/25/2013 None Full Exam - General 1994 Ears/Nose/Throat otoscopic exam Overall: tympanic membranes clear 10/25/2013 None Full Exam - General 1995 Ears/Nose/Throat oral cavity/pharynx/larynx Overall: oral mucosa clear 10/25/2013 None Full Exam - General 1995 Ears/Nose/Throat oral cavity/pharynx/larynx Overall: oropharyngeal mucosa clear 10/25/2013 None Full Exam - General 1994 Ears/Nose/Throat oral cavity/pharynx/larynx Overall: no masses 10/25/2013 [...] happy 10/25/2013 None Full Exam - General 1995 Ears/Nose/Throat otoscopic exam Overall: tympanic membranes clear 10/19/2013 None Full Exam - General 1995 Ears/Nose/Throat oral cavity/pharynx/larynx Overall: oral mucosa clear 10/19/2013 None Full Exam - General 1995 Ears/Nose/Throat oral cavity/pharynx/larynx Overall: oropharyngeal mucosa clear 10/19/2013 None Full Exam - General 1994 Ears/Nose/Throat oral cavity/pharynx/larynx Overall: no masses 10/19/2013 [...] thigh tenderness resolved. Full Exam - General 1995 Musculoskeletal head and neck Overall: head atraumatic 10/19/2013 None Full Exam - General 1995 [...] affect 05/25/2013 None Full Exam - General 1995 Psychiatric mood and affect Mood: happy 05/25/2013 [...] accomodation 05/25/2013 None Full Exam - General 1995 [...] masses 05/25/2013 None Full Exam - General 1995 Respiratory auscultation Overall: breath sounds clear bilaterally 05/25/2013 None Full Exam - General 1995 Respiratory respiratory effort/rhythm Overall: no retractions 05/25/2013 None Full Exam - General 1995 Respiratory respiratory effort/rhythm Overall: normal rate 05/25/2013 [...] tenderness 05/25/2013 None Full Exam - General 1994 [...] 1994 Ears/Nose/Throat oral cavity/pharynx/larynx Overall: no masses 02/18/2013 None Full Exam - General 1995 Respiratory auscultation Overall: breath sounds clear bilaterally 02/18/2013 None Full Exam - General 1995 Respiratory respiratory effort/rhythm Overall: no retractions 02/18/2013 [...] sounds 02/18/2013 None Full Exam - General 1994 [...] 1994 Ears/Nose/Throat oral cavity/pharynx/larynx Overall: no masses 10/01/2012 [...] accomodation 02/11/2012 None Full Exam - General 1995 Ears/Nose/Throat otoscopic exam Overall: external auditory canals clear 02/11/2012 None Full Exam - General 1995 Ears/Nose/Throat otoscopic exam Overall: tympanic membranes clear 02/11/2012 None Full Exam - General 1995 Musculoskeletal head and neck Overall: cervical spine benign 02/11/2012 None Full Exam - General 1994 Musculoskeletal spine, ribs and pelvis Overall: good posture 02/11/2012 None Full Exam - General 1994 Neurologic gait Overall: no ataxia, no unsteadiness 02/11/2012 None Full Exam - General 1995 Neurologic cranial nerves Overall: crainial nerves 2 - 12 grossly intact 02/11/2012 None Full Exam - General 1994 Psychiatric orientation/consciousness Overall: oriented to person, place and time 02/11/2012 None Full Exam - General 1994 Psychiatric mood and affect Overall: normal mood and affect 02/11/2012 None Full Exam - General 1994 Psychiatric mood and affect Mood: happy 02/11/2012 None Full Exam - General 1994 Genitourinary urethra Overall: no masses 02/11/2012 None [...] Procedure Codes Date THER/PROPH/DIAG INJ SC/IM CPT-4: 27418 06/24/2019 TRIAMCINOLONE ACET I [place] NOS CPT-4: J3301 06/24/2019 PPPS, SUBSEQ VISIT CPT- 4: G0439 11/04/2016 TRIAMCINOLONE ACET I [place] NOS CPT-4: J3301 09/03/2016 URINALYSIS NONAUTO W /O SCOPE CPT-4: 76641 06/23/2015 TRIAMCINOLONE ACET I [place] NOS CPT-4: J3301 03/28/2015 FOOT EXAM PERFORMED SNOMED CT: 29210010 CPT-4: 2028F 12/20/2013 PRESCRIP TRANSMIT A ERX SY CPT-4: G8553 10/25/2013 PRESCRIP TRANSMIT A ERX SY CPT-4: G8553 10/01/2012 URINALYSIS NONAUTO W /O SCOPE CPT-4: 35718 02/11/2012 PRESCRIP TRANSMIT A ERX SY CPT-4: G8553 02/11/2012 Vital Signs Date Vital 06/24/2019 Blood Pressure 1: 118/74 Code: 8480-6 BMI: 34.2 Code: 42948-8 Heart Rate 1: 73 bpm Height: 5'3" SpO2: 98% Weight: 193 lbs 04/21/2019 Blood Pressure 1: 150/72 Code: 8480-6 BMI: 34.9 Code: 67959-5 Heart Rate 1: 81 bpm Height: 5'3" SpO2: 98% Weight: 197 lbs 02/17/2019 Blood Pressure 1: 140/72 Code: 8480-6 Heart Rate 1: 82 bpm Height: SpO2: 97% Temperature: 36.8 (C ) / 98.2 (F) Weight: 08/27/2018 Blood Pressure 1: 150/72 Code: 8480-6 BMI: 33.8 Code: 99123-3 Heart Rate 1: 77 bpm Height: 5'3" SpO2: 98% Weight: 191 lbs 02/24/2018 Blood Pressure 1: 140/72 Code: 8480-6 BMI: 33.5 Code: 48060-5 Heart Rate 1: 78 bpm Height: 5'3" SpO2: 98% Weight: 189 lbs 11/03/2017 Blood Pressure 1: 140/72 Code: 8480-6 BMI: 33.2 Code: 47144-4 Heart Rate 1: 71 bpm Height: 5'3" SpO2: 98% Weight: 187 lbs 8 oz 08/08/2017 Blood Pressure 1: 140/66 Code: 8480-6 BMI: 33.1 Code: 01901-0 Heart Rate 1: 73 bpm Height: 5'3" SpO2: 97% Weight: 187 lbs 07/10/2017 Blood Pressure 1: 144/74 Code: 8480-6 BMI: 33.5 Code: 01423-2 Heart Rate 1: 78 bpm Height: 5'3" SpO2: 94% Weight: 189 lbs 03/06/2017 Blood Pressure 1: 140/86 Code: 8480-6 BMI: 32.9 Code: 17678-2 Heart Rate 1: 68 bpm Height: 5'3" SpO2: 98% Weight: 186 lbs 03/04/2017 Blood Pressure 1: 136/82 Code: 8480-6 Heart Rate 1: 61 bpm Height: 5'3" SpO2: 97% Temperature: 36.6 (C ) / 97.8 (F) Weight: 11/04/2016 Blood Pressure 1: 146/76 Code: 8480-6 BMI: 34.7 Code: 91450-0 Heart Rate 1: 70 bpm Height: 5'3" SpO2: 97% Waist Measure (cm): 107 cm Weight: 196 lbs 10/23/2016 Blood Pressure 1: 148/78 Code: 8480-6 BMI: 34.7 Code: 14751-9 Heart Rate 1: 68 bpm Height: 5'3" SpO2: 97% Weight: 196 lbs 10/03/2016 Blood Pressure 1: 142/78 Code: 8480-6 BMI: 34.7 Code: 12670-9 Heart Rate 1: 72 bpm Height: 5'3" SpO2: 98% Weight: 196 lbs 09/03/2016 Blood Pressure 1: 128/88 Code: 8480-6 Heart Rate 1: 86 bpm SpO2: 96% 08/21/2016 Blood Pressure 1: 128/62 Code: 8480-6 BMI: 35.1 Code: 10624-5 Heart Rate 1: 80 bpm Height: 5'3" SpO2: 98% Weight: 198 lbs 07/24/2016 Blood Pressure 1: 150/86 Code: 8480-6 BMI: 34.4 Code: 35188-3 Heart Rate 1: 72 bpm Height: 5'3" SpO2: 97% Weight: 194 lbs 04/24/2016 Blood Pressure 1: 138/76 Code: 8480-6 BMI: 34.2 Code: 37098-1 Heart Rate 1: 71 bpm Height: 5'3" SpO2: 98% Weight: 193 lbs 01/18/2016 Blood Pressure 1: 140/72 Code: 8480-6 BMI: 33.4 Code: 64518-3 Heart Rate 1: 69 bpm Height: 5'3" SpO2: 98% Weight: 188 lbs 8 oz 12/21/2015 Blood Pressure 1: 158/78 Code: 8480-6 BMI: 33.3 Code: 23658-9 Heart Rate 1: 66 bpm Height: 5'3" SpO2: 98% Weight: 188 lbs 08/17/2015 Blood Pressure 1: 132/76 Code: 8480-6 BMI: 30.5 Code: 20692-8 Heart Rate 1: 66 bpm Height: 5'3" Respiratory Rate: 18 bpm SpO2: 97% Weight: 172 lbs 06/23/2015 Blood Pressure 1: 160/80 Code: 8480-6 Blood Pressure 2: 170/86 Code: 8480-6 BMI: 28.3 Code: 73289-8 Heart Rate 1: 96 bpm Height: 5'3" SpO2: 98% Temperature: 37.3 (C ) / 99.1 (F) Weight: 160 lbs 06/21/2015 Blood Pressure 1: 132/78 Code: 8480-6 Heart Rate 1: 106 bpm SpO2: 98% Temperature: 37.3 (C ) / 99.2 (F) Weight: 166 lbs 03/28/2015 Blood Pressure 1: 160/84 Code: 8480-6 Blood Pressure 2: 138/78 Code: 8480-6 BMI: 32.1 Code: 18653-8 Heart Rate 1: 86 bpm Height: 5'3" SpO2: 97% Weight: 181 lbs 07/07/2014 Blood Pressure 1: 138/82 Code: 8480-6 BMI: 32.6 Code: 11290-9 Heart Rate 1: 82 bpm Height: 5'3" SpO2: 96% Weight: 184 lbs 03/24/2014 Blood Pressure 1: 138/64 Code: 8480-6 BMI: 32.4 Code: 05906-8 Heart Rate 1: 72 bpm Height: 5'3" Weight: 183 lbs 01/20/2014 Blood Pressure 1: 149/69 Code: 8480-6 Blood Pressure 2: 170/82 Code: 8480-6 Heart Rate 1: 81 bpm Weight: 183 lbs 12/20/2013 Blood Pressure 1: 150/78 Code: 8480-6 BMI: 32.6 Code: 14436-9 Heart Rate 1: 76 bpm Height: 5'3" Weight: 184 lbs 10/25/2013 Blood Pressure 1: 167/80 Code: 8480-6 BMI: 33.3 Code: 49134-3 Heart Rate 1: 60 bpm Height: 5'3" Weight: 188 lbs 10/19/2013 Blood Pressure 1: 136/78 Code: 8480-6 BMI: 33.1 Code: 87376-3 Height: 5'3" Weight: 187 lbs 05/25/2013 Blood Pressure 1: 134/82 Code: 8480-6 BMI: 33.5 Code: 43320-5 Heart Rate 1: 80 bpm Height: 5'3" Weight: 189 lbs 02/18/2013 Blood Pressure 1: 158/88 Code: 8480-6 Blood Pressure 2: 158/90 Code: 8480-6 BMI: 33.7 Code: 72956-1 Heart Rate 1: 80 bpm Height: 5'3" Weight: 190 lbs 10/01/2012 Blood Pressure 1: 138/62 Code: 8480-6 Heart Rate 1: 76 bpm Weight: 184 lbs 05/18/2012 Blood Pressure 1: 150/82 Code: 8480-6 Blood Pressure 2: 136/84 Code: 8480-6 BMI: 32.1 Code: 49137-5 Heart Rate 1: 71 bpm Height: 5'3" SpO2: 98% Weight: 181 lbs 02/11/2012 Blood Pressure 1: 126/56 Code: 8480-6 Heart Rate 1: 68 bpm Respiratory Rate: 16 bpm Weight: 184 lbs 01/14/2012 Blood Pressure 1: 158/80 Code: 8480-6 BMI: 33.9 Code: 76841-7 Heart Rate 1: 60 bpm Height: 5'3" Respiratory Rate: 16 bpm Weight: 191 lbs 8 oz Functional Status No Functional Status data History of Present Illness Symptom Name Status Resu lt Effective Date Notes Location-Major on the neck 06/24/2019 None Location-Head/Neck [...] back brace rubs incision on left side- HH told her incisions looked good wound follow [...] readings at home 02/11/2012 None hypothyroid Quality clinic nurse miranda 02/11/2012 had a doseage change want [...] Encounters Encounter Performer Loca tion Codes Date ([id number]) 66804 EST. P ATIENT, LEVEL III Diagnosis: Rash and other nonspecific skin eruption[ICD10: R21] Diagnosis: Allergic contact dermatitis due to cosmetics[ICD10: L23.2] Carmelina Ott MD, [facility] CPT-4: 37061 06/24/2019 ([id number] EST. P ATIENT, LEVEL IV Diagnosis: Essential (primary) hypertension[ICD10: I10] Diagnosis: Type 2 diabetes mellitus without complications[ICD10: E11.9] Diagnosis: Atrophy of thyroid (acquired)[ICD10: E03.4] Diagnosis: Mixed hyperlipidemia[ICD10: E78.2] Carmelina Ott MD, [facility] CPT- 4: 27022 04/21/2019 58848 EST. PATIENT, LEVEL III Diagnosis: Acute laryngopharyngitis[ICD10: J06.0] Diagnosis: Other allergic rhinitis[ICD10: J30.89] Luz Ott MD, [facility] CPT-4: 58745 02/17/2019 ([id number]) 20114 EST. P ATIENT, LEVEL IV Diagnosis: Type 2 diabetes mellitus with diabetic polyneuropathy[ICD10: E11.42] Diagnosis: Pain in left leg[ICD10: M79.605] Diagnosis: Pain in right leg[ICD10: M79.604] Carmelina Ott MD, [facility] CPT-4: 59863 08/27/2018 ([id number]) Miscellaneou s no charge Diagnosis: Other fatigue[ICD10: R53.83] [facility] CPT-4: 54191 06/17/2018 ([id number]) 05393 EST. P ATIENT, LEVEL IV Diagnosis: Essential (primary) hypertension[ICD10: I10] Diagnosis: Hypothyroidism, unspecified[ICD10: E03.9] Diagnosis: Type 2 diabetes mellitus without complications[ICD10: E11.9] Diagnosis: Chronic pain syndrome[ICD10: G89.4] Diagnosis: Vitamin B12 deficiency anemia, unspecified[ICD10: D51.9] Diagnosis: Unsteadiness on feet[ICD10: R26.81] Nicki Ott MD, [facility] CPT-4: 14861 02/24/2018 ([id number]) 03411 EST. P ATIENT, LEVEL IV Diagnosis: Type 2 diabetes mellitus without complications[ICD10: E11.9] Diagnosis: Hypothyroidism, unspecified[ICD10: E03.9] Diagnosis: Essential (primary) hypertension[ICD10: I10] Diagnosis: Pain in left shoulder[ICD10: M25.512] Nicki Ott MD, [facility] CPT-4: 27817 11/03/2017 ([id number]) 40070 EST. P ATIENT, LEVEL III Diagnosis: Essential (primary) hypertension[ICD10: I10] Diagnosis: Major depressive disorder, recurrent, mild[ICD10: F33.0] Diagnosis: Other allergic rhinitis[ICD10: J30.89] Nicki Ott MD, [facility] CPT-4: 62837 08/08/2017 ([id number]) 77888 EST. P ATIENT, LEVEL IV Diagnosis: Hypothyroidism, unspecified[ICD10: E03.9] Diagnosis: Major depressive disorder, recurrent, mild[ICD10: F33.0] Diagnosis: Myalgia[ICD10: M79.1] Diagnosis: Chronic pain syndrome[ICD10: G89.4] Diagnosis: Essential (primary) hypertension[ICD10: I10] Nicki Ott MD, [facility] CPT-4: 73128 07/10/2017 ([id number]) 32823 EST. P ATIENT, LEVEL IV Diagnosis: Essential (primary) hypertension[ICD10: I10] Diagnosis: Atrophy of thyroid (acquired)[ICD10: E03.4] Diagnosis: Sacroiliitis, not elsewhere classified[ICD10: M46.1] Diagnosis: Mixed hyperlipidemia[ICD10: E78.2] Carmelina Ott MD, [facility] CPT- 4: 53897 03/06/2017 ([id number]) 76167 EST. P ATIENT, LEVEL II Diagnosis: Rash and other nonspecific skin eruption[ICD10: R21] Nicki Ott MD, [facility] CPT-4: 18097 03/04/2017 ([id number]) 57787 EST. P ATIENT, LEVEL IV Diagnosis: Type 2 diabetes mellitus without complications[ICD10: E11.9] Diagnosis: Essential (primary) hypertension[ICD10: I10] Diagnosis: Atrophy of thyroid (acquired)[ICD10: E03.4] Carmelina Ott MD, [facility] CPT-4: 09567 10/23/2016 70401 EST. PATIENT, LEVEL III Diagnosis: Other specified hypothyroidism[ICD10: E03.8] Diagnosis: Other specified anemias[ICD10: D64.89] Diagnosis: Pain in thoracic spine[ICD10: M54.6] Luz Ott MD, [facility] CPT- 4: 49578 10/03/2016 17992 EST. PATIENT, LEVEL II Diagnosis: Insect bite (nonvenomous) of other part of head, initial encounter[ICD10: S00.86XA] Nicki Ott MD, [facility] CPT-4: 36047 09/03/2016 ([id number]) 36893 EST. P ATIENT, LEVEL IV Diagnosis: Type 2 diabetes mellitus without complications[ICD10: E11.9] Diagnosis: Hypothyroidism, unspecified[ICD10: E03.9] Diagnosis: Essential (primary) hypertension[ICD10: I10] Carmelina Ott MD[facility] CPT-4: 57930 08/21/2016 ([id number]) 01739 EST. P ATIENT, LEVEL IV Diagnosis: Essential (primary) hypertension[ICD10: I10] Diagnosis: Supraventricular tachycardia[ICD10: I47.1] Diagnosis: Other fatigue[ICD10: R53.83] Carmelina Ott MD, [facility] CPT-4: 14133 07/24/2016 ([id number]) 22424 EST. P ATIENT, LEVEL IV Diagnosis: Type 2 diabetes mellitus without complications[ICD10: E11.9] Diagnosis: Essential (primary) hypertension[ICD10: I10] Diagnosis: Hypothyroidism, unspecified[ICD10: E03.9] Carmelina Ott MD[facility] CPT-4: 06754 04/24/2016 ([id number]) 42370 EST. P ATIENT, LEVEL IV Diagnosis: Type 2 diabetes mellitus without complications[ICD10: E11.9] Diagnosis: Type 2 diabetes mellitus with diabetic polyneuropathy[ICD10: E11.42] Carmelina Ott MD, [facility] CPT-4: 76418 01/18/2016 ([id number]) 67706 EST. P ATIENT, LEVEL IV Diagnosis: Urticaria, unspecified[ICD10: L50.9] Diagnosis: Dermatographic urticaria[ICD10: L50.3] Diagnosis: Hypothyroidism, unspecified[ICD10: E03.9] Diagnosis: Type 2 diabetes mellitus without complications[ICD10: E11.9] Diagnosis: Mixed hyperlipidemia[ICD10: E78.2] Diagnosis: Myalgia[ICD10: M79.1] Diagnosis: Essential (primary) hypertension[ICD10: I10] Carmelina Ott MD[facility] CPT-4: 00696 12/21/2015 ([id number]) 24987 EST. P ATIENT, LEVEL IV Diagnosis: Hypothyroidism, unspecified[ICD10: E03.9] Diagnosis: Essential (primary) hypertension[ICD10: I10] Diagnosis: Urticaria, unspecified[ICD10: L50.9] Carmelina Ott MD, [facility] CPT-4: 38840 08/17/2015 ([id number]) Miscellaneou s no charge Diagnosis: ESSENTIAL HYPERTENSION[ICD9: 401.9] Diagnosis: Elevated temperature[ICD9: 780.60] Diagnosis: EDEMA[ICD9: 782.3] Katja Ott MD, [facility] CPT-4: 00947 06/23/2015 ([id number]) 57702 EST. P ATIENT, LEVEL IV Diagnosis: ESSENTIAL HYPERTENSION[ICD9: 401.9] Diagnosis: TACHYCARDIA[ICD9: 785.0] Diagnosis: Dyspnea[ICD9: 786.09] Katja Ott MD, [facility] CPT-4: 62057 06/21/2015 ([id number]) 48753 EST. P ATIENT, LEVEL III Diagnosis: Sacroiliitis[ICD9: 720.2] Diagnosis: LUMBAGO[ICD9: 724.2] Nicki Ott MD, [facility] CPT-4: 46505 03/28/2015 ([id number]) 70852 EST. P ATIENT, LEVEL IV Diagnosis: HYPOTHYROIDISM[ICD9: 244.9] Diagnosis: ESSENTIAL HYPERTENSION[ICD9: 401.9] Diagnosis: DIABETES TYPE II[ICD9: 250.00] Diagnosis: HYPERLIPIDEMIA[ICD9: 272.4] Diagnosis: Muscle ache[ICD9: 729.1] Carmelina Ott MD, [facility] CPT-4: 85450 07/07/2014 ([id number]) 80129 EST. P ATIENT, LEVEL IV Diagnosis: DIABETES TYPE II[SNOMED: 193777453] Diagnosis: ESSENTIAL HYPERTENSION[SNOMED: 22385748] Diagnosis: HYPOTHYROIDISM[ICD9: 244.9] Carmelina Ott MD, [facility] CPT-4: 68261 03/24/2014 ([id number]) 10743 EST. P ATIENT, LEVEL III Diagnosis: DIABETES TYPE II[SNOMED: 653912989] Diagnosis: ESSENTIAL HYPERTENSION[SNOMED: 29583062] Carmelina Ott MD, [facility] CPT-4: 79973 01/20/2014 ([id number]) 94084 EST. P ATIENT, LEVEL IV Diagnosis: DIABETES TYPE II[SNOMED: 350589805] Diagnosis: ESSENTIAL HYPERTENSION[SNOMED: 70477796] Diagnosis: Peripheral neuropathy, idiopathic[ICD9: 356.9] Carmelina Ott MD, [facility] CPT-4: 97639 12/20/2013 ([id number]) 69566 EST. P ATIENT, LEVEL IV Diagnosis: DIABETES TYPE II[SNOMED: 853021662] Diagnosis: ESSENTIAL HYPERTENSION[SNOMED: 15104907] Diagnosis: Dietary counseling and surveillance[ICD9: V65.3] Carmelina Ott MD, [facility] CPT-4: 69960 10/25/2013 ([id number]) 18061 EST. P ATIENT, LEVEL IV Diagnosis: DIABETES TYPE II[SNOMED: 187764071] Diagnosis: ESSENTIAL HYPERTENSION[SNOMED: 21659758] Diagnosis: HYPOTHYROIDISM[ICD9: 244.9] Carmelina Ott MD, [facility] CPT-4: 97374 10/19/2013 ([id number]) 76788 EST. P ATIENT, LEVEL IV Diagnosis: ESSENTIAL HYPERTENSION[SNOMED: 10584545] Diagnosis: DIABETES TYPE II[SNOMED: 373637664] Diagnosis: HYPOTHYROIDISM[ICD9: 244.9] Carmelina Ott MD, [facility] CPT-4: 95822 05/25/2013 ([id number]) 78953 EST. P ATIENT, LEVEL IV Diagnosis: DIABETES TYPE II[SNOMED: 265306200] Diagnosis: ESSENTIAL HYPERTENSION[SNOMED: 34259470] Diagnosis: HYPOTHYROIDISM[ICD9: 244.9] Carmelina Ott MD, [facility] CPT-4: 81365 02/18/2013 ([id number]) 27905 EST. P ATIENT, LEVEL III Diagnosis: ESSENTIAL HYPERTENSION[SNOMED: 14332005] Carmelina Ott MD, [facility] CPT-4: 19115 10/01/2012 ([id number]) 94386 EST. P ATIENT, LEVEL IV Diagnosis: DIABETES TYPE II[SNOMED: 678493546] Diagnosis: ESSENTIAL HYPERTENSION[SNOMED: 48351330] Carmelina Ott MD, [facility] CPT-4: 24794 05/18/2012 ([id number]) 97026 EST. P ATIENT, LEVEL IV Diagnosis: DIABETES TYPE II[SNOMED: 365181023] Diagnosis: HYPOTHYROIDISM[ICD9: 244.9] Diagnosis: UTI (lower urinary tract infection)[ICD9: 599.0] Diagnosis: Vaginal yeast infection[ICD9: 112.1] Diagnosis: Rectal lump[ICD9: 787.99] Diagnosis: Abdominal bloating[ICD9: 787.3] Carmelina Ott MD, [facility] CPT-4: 69114 02/11/2012 ([id number]) 26238 EST. P ATIENT, LEVEL IV Diagnosis: ESSENTIAL HYPERTENSION[SNOMED: 24017068] Diagnosis: DIABETES TYPE II[SNOMED: 948877702] Diagnosis: HYPERLIPIDEMIA[ICD9: 272.4] Diagnosis: HYPOTHYROIDISM[ICD9: 244.9] [facility] CPT-4: 04083 01/14/2012 Plan of Care Planned Activity Notes C odes Status Date Visit Plan: Allergic contact dermat itis - discussed with the patient - avoid the eugene product that has caused this reaction - kenalog injection today, prednisone rx sent to pharmacy. 06/24/2019 Appointment: Carmelina Ott WPtel[id number] (15 min) Moderate 06/24/2019 Patient Education: Patient [...] to medications. 04/21/2019 Appointment: Carmelina Ott WPtel: [facility] (15 min) Moderate 04/21/2019 Patient Education: Patient [...] allergy spray. 02/17/2019 Appointment: Luz Latham WPtel: [facility] (15 min) Moderate 02/17/2019 Patient Education: Patient Medication Summary Completed 02/17/2019 Patient Education: Patient Medication Summary Completed 12/31/2018 Appointment: Carmelina Ott WPtel: [facility] (15 min) Moderate 12/28/2018 Patient Education: Patient Medication Summary Completed 12/21/2018 Visit Plan: Diabetes Mellitus - con christina - per recent FSBS reports. I have [...] with Cymbalta. 08/27/2018 Appointment: Carmelina Ott WPtel: [phone] [facility] [place] (15 min) Moderate 08/27/2018 Patient Education: Patient [...] Gait instabilty-patient going to do PT at [facility] 02/24/2018 Appointment: Nicki Cabral WPtel: [phone] (30 min) Complex 02/24/2018 Patient Education: Patient [...] not improved. 11/03/2017 Appointment: Nicki Cabral WPtel: [facility] [address] (30 min) Complex 11/03/2017 Patient Education: Patient [...] spray in the nasal steroid allergy spray. Oumzobzocq-jykyvofu-rwjhduge cymbalta 08/08/2017 Appointment: Nicki Cabral WPtel: [phone] (30 min) Complex 08/08/2017 Patient Education: Patient [...] patient. 07/10/2017 Appointment: Carmelina Ott WPtel: [phone] [facility] (15 min) Moderate 07/10/2017 Appointment: Nicki Cabral WPtel: [phone] [phone] [place] (30 min) Complex 07/10/2017 Patient Education: Patient [...] recommended pt to continue with aleve, get [place] to use on your knee and hip [...] of control. 03/06/2017 Appointment: Carmelina Ott WPtel: [phone] [facility] (15 min) Moderate 03/06/2017 Patient Education: Patient Medication Summary Completed 03/06/2017 Patient Education: Obesity Completed 03/06/2017 Visit Plan: Rash-very faint-will cu lture the rash today- recommend emollient such as eucerin cream or cerave-call if rash does not resolve or if any worse. Patient verbalized understanding of plan. 03/04/2017 Appointment: Nicki Cabral WPtel: [facility] [place] [address] (15 min) Moderate 03/04/2017 Patient Education: Patient Medication Summary Completed 03/04/2017 Appointment: Carmelina Ott WPtel: [address] [place], [place] [id number] (15 min) Moderate 02/19/2017 Visit Plan: Medicare [...] care surrogate. 11/04/2016 Appointment: Luz Latham WPtel: [facility] [address] - Annual Wellness Visit 11/04/2016 Patient Education: [...] of control. 10/23/2016 Appointment: [facility] Ott [phone] (15 min) Moderate 10/23/2016 Patient Education: Patient [...] of control. 10/03/2016 Appointment: Luz Latham [facility]Ptel: [phone] [place] (30 min) Complex 10/03/2016 Patient Education: Patient Medication Summary Completed 10/03/2016 Patient Education: Obesity Completed 10/03/2016 Visit Plan: Insect bite-right cheek -kenalog injection today in the office-use benadryl cream as needed for itching. Call for s/s of infection-increase redness, warmth, induration. Patient verbalized understanding of plan. 09/03/2016 Appointment: Nicki Cabral WPtel: [phone] [place] (15 min) Moderate 09/03/2016 Patient Education: Patient [...] of control. 08/21/2016 Appointment: Carmelina Ott WPtel: [address] [place] [address] (15 min) Moderate 08/21/2016 Patient Education: Patient [...] control. 04/24/2016 Appointment: Carmelina Ott WPtel: [phone] [facility] (15 min) Moderate 04/24/2016 Patient Education: Patient [...] peripheral neuropathy. 01/18/2016 Appointment: Carmelina Ott WPtel: [phone] [facility] (15 min) Moderate 01/18/2016 Patient Education: Patient [...] Lipids today. 12/21/2015 Appointment: [facility] Ott [facility]Ptel[phone] (15 min) Moderate 12/21/2015 Patient Education: Patient Medication Summary Completed 12/21/2015 Patient Education: Hypertension Completed 12/21/2015 Visit Plan: Hypertension - well con trolled [...] based on previous levels of control. Aminta keren - hold the pravastatin x 1 month 08/17/2015 Appointment: Carmel[facility] Ott [facility]Ptel[phone] (15 min) Moderate 08/17/2015 Patient Education: Patient [...] x 2weeks and to talk to her corn cutter about potential permanent decrease in her medication if the two week trial of a lower dose has helped to improve her symptoms of muscle aches and joint pain. 07/07/2014 Appointment: Carmelina Ott WPtel: [phone] [facility] Follow up 07/07/2014 Patient Education: Patient Medication Summary Completed 07/07/2014 Patient Education: Hypertension Completed 07/07/2014 Visit Plan: Diabetes Mellitus - con trolled [...] of control. 03/24/2014 Appointment: Carmel[facility] Ott [facility]Ptel: [phone] Follow up 03/24/2014 Patient Education: Patient Medication [...] to become less controlled. 01/20/2014 Appointment: Carmelina Ott WPtel: [phone] [facility] Follow up 01/20/2014 Patient Education: Patient Medication Summary Completed 01/20/2014 Patient Education: Hypertension Completed 01/20/2014 Appointment: Carmelina Ott WPtel: [phone] [facility] Follow up 01/17/2014 Visit Plan: Diabetes Mellitus [...] diabetic control. 12/20/2013 Appointment: Carmel[facility] Ott [facility]Ptel: [phone] Other 12/20/2013 Patient Education: Patient Medication Summary [...] WEEK 10/25/2013 Appointment: Carmelina Ott WPtel: [phone] Diabetic education 10/25/2013 Patient Education: Patient Medication [...] control. 10/19/2013 Appointment: Carmelina Ott WPtel: [phone] Follow up 10/19/2013 Patient Education: Patient Medication Summary Completed 10/19/2013 Patient Education: Hypertension Completed 10/19/2013 Appointment: Carmelina Ott WPtel: [facility] Follow up 09/23/2013 Visit Plan: Hypertension - [...] of control. 05/25/2013 Appointment: Carmelina Ott WPtel: [phone] [facility] Follow up 05/25/2013 Patient Education: Patient Medication Summary Completed 05/25/2013 Patient Education: Hypertension Completed 05/25/2013 Appointment: Carmelina Ott WPtel: [phone] [facility] Follow up 05/19/2013 Visit Plan: Diabetes Mellitus [...] months. 02/18/2013 Appointment: Carmelina Ott WPtel: [phone] [facility] Follow up 02/18/2013 Patient Education: Patient Medication [...] and resolved. 10/01/2012 Appointment: Carmel[facility] Ott WPtel: [phone] [place] Other 10/01/2012 Patient Education: Patient Medication Summary [...] for yeast 02/11/2012 Appointment: Carmelina Ott WPtel: [phone] pt will comment on meaningful use (from [...] kegel exercises. 01/14/2012 Appointment: Carmelina Ott WPtel: [phone] Other 01/14/2012 Patient Education: Patient Medication Summary Completed 01/14/2012 Patient Education: High Blood Pressure: Essential Hypertension Completed 01/14/2012 Referral: Andrew Madera Referral Relationship Referral: Ravi Gaston WPtel: [address] [address] [id number] Referral Relationship Referral: Ella Saldana Referral Relationship [...] ick to lip Chest X-Ray at [facility] today We will write referral order for [...] ick to lip Chest X-Ray at [facility] today We will write referral order for [...] spray in the nasal steroid allergy spray. Yhczahxmfx-ujupivmv-ixweekrv cymbalta CYMBALTA 30MG DAILY . Hypertension - [...] Gait instabilty-patient going to do PT at [facility] . URI - Pt advised t o [...] x 2weeks and to talk to her corn cutter about potential permanent decrease in her medication [...] x 2weeks and to talk to her corn cutter about potential permanent decrease in her medication [...] hypertension, management of edema, recent back surgery. Knee and hip pain - recommended pt to continue with aleve, get [place] to use on your knee and hip [...] - recommended pt to continue with aleve, adam [place] to use on your knee and hip [...]
--- OUTSIDE RECORDS SUMMARY | 2020-05-26 12:09 | XMS REPORT | CCD ---
Author Author Aleyda Ott tn Organization Carmelina Ott MD, [facility] Address [facility] [place] [address] Phone Care Team Providers Care Manager Transportation Planning Name Role Phone PP Unavailable CCM Unavailable Summary Purpose Interface Exchange Insurance Providers Payer name Policy type / Coverage type Covered libertarian ID Effective Begin Date Effective End Date WPS Medicare Part B Medicare Part B [id number] 2013 Unknown [facility] icare Part B [id number] 2013 Unkno wn Family history Brother Diagnosis Age At Onset Heart disease Unknown Sister Diagnosis Age At Onset endometrial cancer Unknown Father Diagnosis Age At Onset Heart disease Unknown Mother Diagnosis Age At Onset Heart disease Unknown Social History Social History Element Codes Description Effective Dates Marital status Unknown W idowed 01/14/[address]: [id number] Nonsmoker 01/14/2012 Has the patient ever used [...] 720.2 ICD-10: M46.1 03/06/2017 Active Encounter for [facility] adult medical examination with abnormal findings ICD-9: [...] Date Stop Date Sta tus Fill Instructions Kenalog 40 mg/mL marguerite pension for injection RxNorm: 7647945 Milliliter(s) Inj 06/24/2019 06/24/2019 In active prednisone 20 mg tablet RxNorm: 008034 2 Tablet(s) PO daily 06/24/2019 06/28/2019 Active Zithromax Z-Sony 250 mg tablet RxNorm: 275790 Tablet(s) PO UD 02/17/2019 No Stop Date Active Synthroid 50 mcg tablet RxNorm: 505513 TAKE ONE TABLET BY MOUTH DAILY (DISCONTI NUE LEVOTHYROXINE) 12/14/2018 12/08/2019 Active metoprolol succinate ER 50 mg tablet,extended release 24 hr RxNorm: 001875 1 Tablet(s) PO QPM TAKE ONE TABLET BY MOUTH EVERY EVENING 10/20/2018 03/18/2019 Inactive metoprolol succinate ER 50 mg tablet,extended release 24 hr RxNorm: 179956 1 Tablet(s) PO QPM TAKE ONE TABLET BY MOUTH EVERY EVENING 05/08/2018 10/19/2018 Inactive Cymbalta 30 mg capsu le,delayed release RxNorm: 209930 TAKE ONE CAPSULE BY M OUTH DAILY 11/24/2017 11/18/2018 Inactive Synthroid 50 mcg tablet RxNorm: 714300 TAKE ONE TABLET BY MOUTH DAILY (DISCONTI NUE LEVOTHYROXINE) 11/24/2017 12/13/2018 Inactive Voltaren 1 % topical gel RxNorm: 572074 [facility] 11/03 No Stop Date Active metoprolol succinate ER 50 mg tablet,extended release 24 hr RxNorm: 343692 1 Tablet(s) PO QPM TAKE ONE TABLET BY MOUTH EVERY EVENING 10/06/2017 05/03/2018 Inactive Synthroid 50 mcg tablet RxNorm: 081726 TAKE ONE TABLET BY MOUTH DAILY (DISCONTI NUE LEVOTHYROXINE) 09/04/2017 11/23/2017 Inactive Cymbalta 30 mg capsu le,delayed release RxNorm: 995307 1 Capsule(s) PO daily 07/10/2017 10/07/2017 In active metoprolol succinate ER 50 mg tablet,extended release 24 hr RxNorm: 218614 TAKE ONE TABLET BY MOUTH EVERY EVENING 03/06/2017 10/01/2017 Inactive Kenalog 40 mg/mL marguerite pension for injection RxNorm: 7132502 Milliliter(s) Inj 09/03/2016 09/03/2016 In active tramadol 50 mg tablet RxNorm: 566219 1 Tablet(s) PO Q4-6H as needed 08/21/2016 No Stop Date Active Synthroid 50 mcg tablet RxNorm: 448219 1 Tablet(s) PO daily 08/21/2016 08/15/2017 Inactive DC levothyroxine metoprolol succinate ER 25 mg tablet,extended release 24 hr RxNorm: 897120 1 Tablet(s) PO QAM 07/24/2016 08/20/2016 Inactive metoprolol succinate ER 50 mg tablet,extended release 24 hr RxNorm: 834368 1 Tablet(s) PO QPM 07/24/2016 02/18/2017 Inactive Synthroid 50 mcg tablet RxNorm: 710844 1 Tablet(s) PO daily 06/10/2016 08/20/2016 Inactive DC levothyroxine Synthroid 50 mcg tablet RxNorm: 289484 1 Tablet(s) PO daily 05/16/2016 06/09/2016 Inactive hydrocortisone 2.5 % topical cream RxNorm: 479008 1 Application TOP TID 05/08/2016 08/05/2016 In active hydrocortisone 2.5 % topical cream RxNorm: 807359 1 Application TOP TID 05/08/2016 05/07/2016 In active betamethasone diprop ionate 0.05 % topical cream RxNorm: 408355 1 Application TOP BID as needed 04/24/2016 05/07/2016 Inactive betamethasone diprop ionate 0.05 % topical cream RxNorm: 862637 1 Application TOP BID as needed 04/24/2016 04/23/2016 Inactive loratadine 10 mg tablet RxNorm: 794029 1 Tablet(s) PO daily 01/18/2016 05/16/2016 Inactive loratadine 10 mg dis integrating tablet RxNorm: 960280 1 Tablet(s) PO daily 01/18/2016 01/17/2016 In active Synthroid 50 mcg tablet RxNorm: 654896 1 Tablet(s) PO daily 01/01/2016 04/29/2016 Inactive Synthroid 50 mcg tablet RxNorm: 898345 1 Tablet(s) PO daily 01/01/2016 12/31/2015 Inactive prednisone 20 mg tablet RxNorm: 873942 3 Tablet(s) PO daily 09/11/2015 09/15/2015 Inactive prednisone 20 mg tablet RxNorm: 844594 3 Tablet(s) PO daily 09/11/2015 09/10/2015 Inactive Abreva 10 % topical cream RxNorm: 170872 1 Application TOP 5x daily 06/23/2015 07/12/2015 Inactive Apply to lip lesions 5 times per day for 10 days prednisone 20 mg tablet RxNorm: 513047 2 Tablet(s) PO daily x3 06/12/2015 06/14/2015 Inactive prednisone 20 mg tablet RxNorm: 874326 2 Tablet(s) PO daily x3 06/12/2015 06/11/2015 Inactive Kenalog 40 mg/mL marguerite pension for injection RxNorm: 0395141 1 Milliliter(s) Inj 03/28/2015 03/28/2015 In active hydrocodone 7.5 mg-a cetaminophen 325 mg tablet RxNorm: 876868 1 Tablet(s) PO Q4-6H as needed for back pain 03/28/2015 06/11/2015 Inactive Synthroid 50 mcg tablet RxNorm: 227324 1 Tablet(s) PO daily TAKE ONE TABLET BY MOUTH EVERY DAY 12/12/2014 12/11/2014 Inactive Synthroid 50 mcg tablet RxNorm: 201158 TAKE ONE TABLET BY MOUTH EVERY DAY 12/12/2014 12/20/2015 In active hydrocodone 7.5 mg-a cetaminophen 325 mg tablet RxNorm: 453420 1 Tablet(s) PO Q4-6H as needed for back pain 07/07/2014 09/04/2014 Inactive Synthroid 50 mcg tablet RxNorm: 859286 1 Tablet(s) PO daily TAKE ONE TABLET BY MOUTH EVERY DAY 07/07/2014 12/11/2014 Inactive Synthroid 50 mcg tablet RxNorm: 304692 TAKE ONE TABLET BY MOUTH EVERY DAY 06/06/2014 06/10/2014 In active Synthroid 50 mcg tablet RxNorm: 131072 TAKE ONE TABLET BY MOUTH EVERY DAY 06/06/2014 06/10/2014 In active Singulair 10 mg tablet RxNorm: 113875 Tablet(s) PO TAKE ONE TABLET BY MOUTH EV FCO DAY 03/03/2014 06/22/2015 Inactive hydrocodone 5 mg-kristofer taminophen 500 mg tablet RxNorm: 183982 Tablet(s) PO PRN 01/20/2014 07/06/2014 In active Synthroid 50 mcg tablet RxNorm: 266313 1 Tablet(s) PO daily name brand only 12/14/2013 12/13/2013 In active name brand only Synthroid 50 mcg tablet RxNorm: 477140 1 Tablet(s) PO daily name brand only 12/14/2013 06/05/2014 In active name brand only Januvia 50 mg tablet RxNorm: 718169 1 Tablet(s) PO daily 03/24/2013 05/25/2013 Inactive Singulair 10 mg tablet RxNorm: 053460 Tablet(s) PO TAKE ONE TABLET BY MOUTH EV FCO DAY 03/02/2013 03/02/2014 Inactive levothyroxine 50 mcg tablet RxNorm: 097235 1 Tablet(s) PO daily 02/03/2013 02/02/2013 Inactive levothyroxine 50 mcg tablet RxNorm: 840228 1 Tablet(s) PO daily 02/03/2013 10/18/2013 Inactive levothyroxine 25 mcg tablet RxNorm: 225716 1 1/2 Tablet(s) PO daily 01/29/2013 02/02/2013 Inactive one and one half tab daily (1 2)march zhang ve 90 day supply if cheaper levothyroxine 25 mcg tablet RxNorm: 250467 Tablet(s) PO TAKE 1 A ND 1/2 TABLETS ONCE DAILY 11/02/2012 05/25/2013 Inactive glipizide 5 mg tablet RxNorm: 975956 Tablet(s) PO TAKE ONE-HALF TABLET BY ADÁN TH EVERY DAY 10/19/2012 05/25/2013 Inactive metformin 500 mg tablet RxNorm: 217488 Tablet(s) PO TAKE ONE-HALF TABLET BY ADÁN TH TWICE A DAY 10/19/2012 05/25/2013 Inactive Voltaren 1 % Topical Gel RxNorm: 143953 4 Gram(s) TOP QID 10/01/2012 12/25/2015 Inactive levothyroxine 25 mcg tablet RxNorm: 047013 1 1/2 Tablet(s) PO daily 08/03/2012 01/28/2013 Inactive one and one half tab daily (1 11/18)may zhang ve 90 day supply if cheaper metformin 500 mg tablet RxNorm: 148702 1/2 Tablet(s) PO BID 03/03/2012 08/29/2012 Inactive glipizide 5 mg Tab RxNorm: 710177 1/2 Tablet(s) PO daily 03/03/2012 03/02/2012 Inactive metformin 500 mg Tab RxNorm: 872089 1/2 Tablet(s) PO BID 03/03/2012 03/02/2012 Inactive glipizide 5 mg tablet RxNorm: 296235 1/2 Tablet(s) PO daily 03/03/2012 08/29/2012 Inactive Singulair 10 mg tablet RxNorm: 104998 1 Tablet(s) PO daily 03/02/2012 03/01/2013 Inactive Bactrim DS 800 mg-16 0 mg Tab RxNorm: 961816 1 Tablet(s) PO BID 02/11/2012 02/20/2012 Inactive fluconazole 150 mg Tab RxNorm: 883937 1 Tablet(s) PO daily 02/11/2012 05/25/2013 Inactive levothyroxine 25 mcg tablet RxNorm: 578330 1 /2 Tablet(s) PO daily 01/15/2012 07/12/2012 Inactive one and one half tab daily (11/18)march zhang ve 90 day supply if cheaper levothyroxine 100 mc g Tab RxNorm: 972819 1 Tablet(s) PO daily 09/04/2011 01/14/2012 Inactive Singulair 10 mg Tab RxNorm: 120889 1 Tablet(s) PO daily 09/04/2011 03/01/2012 Inactive zinc lozenges RxNorm: 1 PO QHS No Start Date Active Vitamin B-6 100 mg t ablet RxNorm: 875116 2 Tablet(s) PO QPM No Start Date Active Zinc Chelate 15 mg t ablet RxNorm: 1 Tablet(s) PO daily with 1 ,000 mg calcium No Start Date Active Vitamin D3 2,000 uni t tablet RxNorm: 962381 1 Tablet(s) PO QPM No Start Date Active Artificial Tears RxNorm: 689885 ophthalmic No Start Date Active Nitrostat 0.4 mg Sub lingual Tab RxNorm: 469162 Tablet(s) SL PRN No Start Date Active Vitamin C 100 mg tablet RxNorm: 698619 1 Tablet(s) PO QHS No Start Date Active Fish Oil 360 mg-1,20 0 mg capsule RxNorm: 196667 1 Capsule(s) PO daily No Start Date Active latanoprost 0.005 % eye drops RxNorm: 103913 1 Drop(s) OPH each ey e QHS No Start Date Active Vitamin B-12 1,000 m cg tablet RxNorm: 696911 1 Tablet(s) PO daily No Start Date Active [place] Saline nasal RxNorm: 9863 nasal No Start Date Active Flintstones Complete oral RxNorm: oral No Start D ate Active aspirin 81 mg Tab, D elayed Release RxNorm: 467954 1 Tablet(s) PO daily No Start Date Active vitamin D3-[place] ne 7 Oral RxNorm: Oral No Start D ate 12/26/2015 Inactive vitamin B6-vitamin E -magnesium Tab RxNorm: 1 Tablet(s) PO daily No Start Date 12/26/2015 Inactive Zinc Chelate 15 mg t ablet RxNorm: 1 Tablet(s) PO daily with 4 00 mg Magnesium No Start Date 10/23/2016 Inactive pravastatin 20 mg ta blet RxNorm: 551840 1 Tablet(s) PO daily No Start Date 01/19/2014 Inactive Zocor 20 mg Tab RxNorm: 346528 1 Tablet(s) PO QHS No Start Date 05/25/2013 Inactive Plavix 75 mg tablet RxNorm: 194436 1 Tablet(s) PO daily No Start Date 03/28/2015 Inactive metoprolol succinate ER 100 mg tablet,extended release 24 hr RxNorm: 071969 1 Tablet(s) PO daily No Start Date 07/23/2016 Inactive Januvia 100 mg Tab RxNorm: 651610 1 Tablet(s) PO daily No Start Date 05/25/2013 Inactive tramadol 50 mg tablet RxNorm: 372401 1 Tablet(s) PO as needed No Start Date 08/20/2016 Inactive [place]stones Complete Oral RxNorm: Oral No Start D ate 12/26/2015 Inactive Plavix 75 mg Tab RxNorm: 538263 1 Tablet(s) PO every other day No Start Date 05/25/2013 Inactive Accu-Chek Compact Te st strips RxNorm: 1 test Miscellaneous BID No Start Date 10/22/2016 Inactive accu-chek compact plus Accu-Chek Softclix L ancets RxNorm: 1 test Miscellaneous daily No Start Date 10/22/2016 Inactive Fish Oil 1,000 mg Cap RxNorm: 1 Capsule(s) PO daily No Start Date 12/26/2015 Inactive Januvia 50 mg tablet RxNorm: 413718 Tablet(s) PO No Start Date 03/23/2013 Inactive hydrocodone 5 mg-kristofer taminophen 500 mg tablet RxNorm: 787609 Tablet(s) PO PRN No Start Date 01/19/2014 Inactive Synthroid 50 mcg tablet RxNorm: 198943 1 Tablet(s) PO daily name brand only No Start Date 12/13/2013 Inactive name brand only pravastatin 20 mg ta blet RxNorm: 739028 1 Tablet(s) PO QHS No Start Date 06/24/2019 Inactive levothyroxine 25 mcg Tab RxNorm: 448497 1 Tablet(s) PO daily 1 tab q morning on empty stomach No Start Date 01/13/2012 Inactive metoprolol succinate ER 50 mg 24 hr Tab RxNorm: 931410 1 Tablet(s) PO daily No Start Date 12/25/2015 Inactive pravastatin 40 mg ta blet RxNorm: 310526 Tablet(s) PO No Start Date 12/25/2015 Inactive latanoprost Opht RxNorm: Ophthalmic No Start Date 12/26/2015 Inactive cranberry Oral RxNorm: Oral No Start Date 06/22/2015 Inactive Medication Administered Medication Codes Instruc tions Start Date Status Kenalog 40 mg/mL suspension for injection RxNorm: 4063877 Milliliter 06/24/2019 Ac tive Kenalog 40 mg/mL suspension for injection RxNorm: 9750049 Milliliter 09/03/2016 No longer Active Kenalog 40 mg/mL suspension for injection RxNorm: 1721977 1Milliliter 03/28/2015 N o longer Active Immunizations [...] Observation Code Item Item Code Result Date Lipid Ord30 CHOL 152 mg/dL 12/30/2018 Lipid Ord30 HDL 44.0 mg/dl 12/30/2018 Lipid Ord30 TRIG 224 mg/dL 12/30/2018 Lipid Ord30 LDL 63 mg/dL 12/30/2018 Lipid Ord30 C/HDL 3.5 Ratio 12/30/2018 Free T4 Szx349 FREE T4 0.64 ng/dL 12/30/2018 %Hba1C Ktj581 % HbA1c 13392-2 6.9 % 12/30/2018 %Hba1C Cse470 Gluc Ave 151 mg/dL 12/30/2018 Comp Metabolic Wut618 NA 140 mEq/L 12/30/2018 Comp Metabolic Whz298 K 4.5 mEq/L 12/30/2018 Comp Metabolic Aum379 CL 107 mEq/L 12/30/2018 Comp Metabolic Pma499 CO2 25.0 mEq/L 12/30/2018 Comp Metabolic Uib290 AN ION GAP 13 12/30/2018 Comp Metabolic Gla409 GL UCOSE 117 mg/dL 12/30/2018 Comp Metabolic Try075 Cr eat 0.8 mg/dL 12/30/2018 Comp Metabolic Exc109 eG FR 79 ml/min/1.73m2 12/30 Comp Metabolic Xws974 BUN 17 mg/dL 12/30/2018 Comp Metabolic Edv757 B/ C Ratio 22.4 Ratio 12/30/2018 Comp Metabolic Bpb481 CA LCIUM 9.6 mg/dL 12/30/2018 Comp Metabolic Vqm487 AL K PHOS 69 U/L 12/30/2018 Comp Metabolic Gqn272 T(SGOT) 23 U/L 12/30/2018 Comp Metabolic Txo627 AL T(SGPT) 30 U/L 12/30/2018 Comp Metabolic Xyl635 BI LI T 0.4 mg/dL 12/30/2018 Comp Metabolic Ddk032 AL BUMIN 4.2 g/dL 12/30/2018 Comp Metabolic Vrs617 TP RO 6.6 g/dL 12/30/2018 Comp Metabolic Ekc637 GL OB 2.4 g/dL 12/30/2018 Comp Metabolic Oqz596 A/ G Ratio 1.8 Ratio 12/30/2018 Comp Metabolic Yud173 Os mo 282 mOsmo 12/30/2018 Tsh Ord6 [...] 31.0 pg 12/30/2018 Cbc With Differential Ord2 [place]% 8.1 % 12/30/2018 Cbc With Differential Ord2 [...] 1.83 K/ul 12/30/2018 Cbc With Differential Ord2 [place] ABS# 0.5 K/ul 12/30/2018 Cbc With Differential Ord2 Eos ABS# 0.1 K/ul 12/30/2018 Cbc With Differential Ord2 Baso ABS# 0.0 K/ul 12/30/2018 Comp Metabolic Gkp120 NA 138 mEq/L 02/24/2018 Comp Metabolic Hvn312 K 4.3 mEq/L 02/24/2018 Comp Metabolic Qxp650 CL 103 mEq/L 02/24/2018 Comp Metabolic Bso324 CO2 27.0 mEq/L 02/24/2018 Comp Metabolic Cab878 AN ION GAP 12 02/24/2018 Comp Metabolic Baz252 GL UCOSE 96 mg/dL 02/24/2018 Comp Metabolic Ird126 Cr eat 0.7 mg/dL 02/24/2018 Comp Metabolic Oda329 eG FR 86 ml/min/1.73m2 02/24 Comp Metabolic Yat807 BUN 17 mg/dL 02/24/2018 Comp Metabolic Jxb874 B/ C Ratio 23.9 Ratio 02/24/2018 Comp Metabolic Vkh142 CA LCIUM 9.2 mg/dL 02/24/2018 Comp Metabolic Rzv912 AL K PHOS 67 U/L 02/24/2018 Comp Metabolic Ept726 T(SGOT) 25 U/L 02/24/2018 Comp Metabolic Ukb352 AL T(SGPT) 25 U/L 02/24/2018 Comp Metabolic Nqd041 BI LI T 0.3 mg/dL 02/24/2018 Comp Metabolic Zcv214 AL BUMIN 3.9 g/dL 02/24/2018 Comp Metabolic Uhl635 TP RO 6.5 g/dL 02/24/2018 Comp Metabolic Nrl369 GL OB 2.6 g/dL 02/24/2018 Comp Metabolic Kgp730 A/ G Ratio 1.5 Ratio 02/24/2018 Comp Metabolic Ojl916 Os mo 277 mOsmo 02/24/2018 Free T4 Oto004 FREE T4 0.71 ng/dL 02/24/2018 Tsh Ord6 TSH (3rd IS) 2.53 uIU/mL 02/24/2018 B12 Eky174 B12 360.00 pg/ml 02/24/2018 Cbc With Differential [...] 30.4 pg 02/24/2018 Cbc With Differential Ord2 [place]% 11.3 % 02/24/2018 Cbc With Differential Ord2 [...] 2.18 K/ul 02/24/2018 Cbc With Differential Ord2 [place] ABS# 0.8 K/ul 02/24/2018 Cbc With Differential Ord2 Eos ABS# 0.2 K/ul 02/24/2018 Cbc With Differential Ord2 Baso ABS# 0.0 K/ul 02/24/2018 %Hba1C Twe711 % HbA1c 66171-7 6.5 % 02/24/2018 %Hba1C Yrr077 Gluc Ave 140 mg/dL 02/24/2018 Tsh Ord6 hTSH II 3.98 uIU/mL 11/03/2017 Comp Metabolic Vsn362 NA 139 mEq/L 11/03/2017 Comp Metabolic Kad131 K 4.1 mEq/L 11/03/2017 Comp Metabolic Ocr115 CL 102 mEq/L 11/03/2017 Comp Metabolic Umo916 CO2 28.0 mEq/L 11/03/2017 Comp Metabolic Jtp789 AN ION GAP 13 11/03/2017 Comp Metabolic Ett764 GL UCOSE 96 mg/dL 11/03/2017 Comp Metabolic Duv426 Cr eat 0.8 mg/dL 11/03/2017 Comp Metabolic Dtl452 eG FR 80 ml/min/1.73m2 11/03 Comp Metabolic Kcq049 BUN 16 mg/dL 11/03/2017 Comp Metabolic Gtu108 B/ C Ratio 21.3 Ratio 11/03/2017 Comp Metabolic Qpe053 CA LCIUM 9.5 mg/dL 11/03/2017 Comp Metabolic Cqg640 AL K PHOS 73 U/L 11/03/2017 Comp Metabolic Mtd384 T(SGOT) 26 U/L 11/03/2017 Comp Metabolic Jre191 AL T(SGPT) 22 U/L 11/03/2017 Comp Metabolic Gdu014 BI LI T 0.4 mg/dL 11/03/2017 Comp Metabolic Iko522 AL BUMIN 4.1 g/dL 11/03/2017 Comp Metabolic Lof019 TP RO 6.3 g/dL 11/03/2017 Comp Metabolic Rpv701 GL OB 2.2 g/dL 11/03/2017 Comp Metabolic Zjo990 A/ G Ratio 1.9 Ratio 11/03/2017 Comp Metabolic Ord813 Os mo 279 mOsmo 11/03/2017 Cbc With [...] 29.8 pg 11/03/2017 Cbc With Differential Ord2 [place]% 10.4 % 11/03/2017 Cbc With Differential Ord2 [...] 2.18 K/ul 11/03/2017 Cbc With Differential Ord2 [place] ABS# 0.7 K/ul 11/03/2017 Cbc With Differential Ord2 Eos ABS# 0.1 K/ul 11/03/2017 Cbc With Differential Ord2 Baso ABS# 0.0 K/ul 11/03/2017 Free T4 Prm619 FREE T4 0.75 ng/dL 11/03/2017 %Hba1C Cwb608 % HbA1c 12205-8 6.4 % 11/03/2017 %Hba1C Byf563 Gluc Ave 137 mg/dL 11/03/2017 Tsh Ord6 hTSH II 1.77 uIU/mL 03/04/2017 Lipid Ord30 CHOL 125 mg/dL 03/04/2017 Lipid Ord30 HDL 38.0 mg/dl 03/04/2017 Lipid Ord30 TRIG 144 mg/dL 03/04/2017 Lipid Ord30 LDL 58 mg/dL 03/04/2017 Lipid Ord30 C/HDL 3.3 Ratio 03/04/2017 Microalbumin Mmg660 Micr oAlb <0.7 mg/dL 03/04/2017 Comp Metabolic Jss709 NA 139 mEq/L 03/04/2017 Comp Metabolic Lce240 K 4.4 mEq/L 03/04/2017 Comp Metabolic Ceu944 CL 104 mEq/L 03/04/2017 Comp Metabolic Obo266 CO2 27.0 mEq/L 03/04/2017 Comp Metabolic Ehp052 AN ION GAP 12 03/04/2017 Comp Metabolic Dcj268 GL UCOSE 95 mg/dL 03/04/2017 Comp Metabolic Buj350 Cr eat 0.8 mg/dL 03/04/2017 Comp Metabolic Cgm363 eG FR 79 ml/min/1.73m2 03/04 Comp Metabolic Jxu376 BUN 13 mg/dL 03/04/2017 Comp Metabolic Gdu497 B/ C Ratio 17.1 Ratio 03/04/2017 Comp Metabolic Qcn272 CA LCIUM 9.2 mg/dL 03/04/2017 Comp Metabolic Iss512 AL K PHOS 62 U/L 03/04/2017 Comp Metabolic Nae641 T(SGOT) 22 U/L 03/04/2017 Comp Metabolic Tkp392 AL T(SGPT) 22 U/L 03/04/2017 Comp Metabolic Dxp053 BI LI T 0.5 mg/dL 03/04/2017 Comp Metabolic Xqk024 AL BUMIN 3.8 g/dL 03/04/2017 Comp Metabolic Aoj518 TP RO 6.2 g/dL 03/04/2017 Comp Metabolic Tvd171 GL OB 2.4 g/dL 03/04/2017 Comp Metabolic Gew788 A/ G Ratio 1.6 Ratio 03/04/2017 Comp Metabolic Qky600 Os mo 277 mOsmo 03/04/2017 %Hba1C Ntr978 % HbA1c 32560-5 6.2 % 03/04/2017 %Hba1C Zqf175 Gluc Ave 131 mg/dL 03/04/2017 Cbc With [...] 30.6 pg 03/04/2017 Cbc With Differential Ord2 [place]% 9.6 % 03/04/2017 Cbc With Differential Ord2 [...] 1.84 K/ul 03/04/2017 Cbc With Differential Ord2 [place] ABS# 0.6 K/ul 03/04/2017 Cbc With Differential Ord2 Eos ABS# 0.1 K/ul 03/04/2017 Cbc With Differential Ord2 Baso ABS# 0.0 K/ul 03/04/2017 B12 Hjv473 B12 440.00 pg/ml 10/04/2016 Free T4 Lmw018 FREE T4 0.77 ng/dL 10/04/2016 Cbc With [...] 30.6 pg 10/04/2016 Cbc With Differential Ord2 [place]% 8.0 % 10/04/2016 Cbc With Differential Ord2 [...] 2.77 K/ul 10/04/2016 Cbc With Differential Ord2 [place] ABS# 0.7 K/ul 10/04/2016 Cbc With Differential Ord2 Eos ABS# 0.1 K/ul 10/04/2016 Cbc With Differential Ord2 Baso ABS# 0.0 K/ul 10/04/2016 Comp Metabolic Bzk509 NA 136 mEq/L 10/04/2016 Comp Metabolic Sut764 K 4.0 mEq/L 10/04/2016 Comp Metabolic Ecy839 CL 100 mEq/L 10/04/2016 Comp Metabolic Nqq508 CO2 29.0 mEq/L 10/04/2016 Comp Metabolic Ydv771 AN ION GAP 11 10/04/2016 Comp Metabolic Qdh826 GL UCOSE 92 mg/dL 10/04/2016 Comp Metabolic Dkz021 Cr eat 0.7 mg/dL 10/04/2016 Comp Metabolic Goh927 eG FR 85 ml/min/1.73m2 10/04 Comp Metabolic Qnv817 BUN 17 mg/dL 10/04/2016 Comp Metabolic Gnb955 B/ C Ratio 23.6 Ratio 10/04/2016 Comp Metabolic Ove575 CA LCIUM 9.7 mg/dL 10/04/2016 Comp Metabolic Yem528 AL K PHOS 86 U/L 10/04/2016 Comp Metabolic Ryj776 T(SGOT) 23 U/L 10/04/2016 Comp Metabolic Ani145 AL T(SGPT) 27 U/L 10/04/2016 Comp Metabolic Oci668 BI LI T 0.3 mg/dL 10/04/2016 Comp Metabolic Sxr805 AL BUMIN 4.3 g/dL 10/04/2016 Comp Metabolic Zfb794 TP RO 6.9 g/dL 10/04/2016 Comp Metabolic Dql617 GL OB 2.6 g/dL 10/04/2016 Comp Metabolic Rsh381 A/ G Ratio 1.6 Ratio 10/04/2016 Comp Metabolic Dku749 Os mo 273 mOsmo 10/04/2016 Tsh Ord6 hTSH II 3.75 uIU/mL 10/04/2016 Free T4 Mxf212 FREE T4 0.68 ng/dL 05/17/2016 Tsh Ord6 hTSH II 3.31 uIU/mL 05/17/2016 Alyssa Reflex Profile [id number] ALYSSA (MARCELLA) SCREEN NONE DETECTED 016 Tsh Ord6 hTSH II 6.78 uIU/mL 12/22/2015 C-Reactive Protein Qnt Crqnt CRP 0.2 mg/dl 12/22/2015 Sed Rate Ord21 ESR 15 mm/hr 12/22/2015 Free T4 Bcp459 FREE T4 0.70 ng/dL 12/22/2015 Comp Metabolic Hjg293 NA 138 mEq/L 12/22/2015 Comp Metabolic Ltl571 K 4.3 mEq/L 12/22/2015 Comp Metabolic Rps488 CL 102 mEq/L 12/22/2015 Comp Metabolic Luj829 CO2 28.0 mEq/L 12/22/2015 Comp Metabolic Hsz893 AN ION GAP 12 12/22/2015 Comp Metabolic Nic725 GL UCOSE 114 mg/dL 12/22/2015 Comp Metabolic Tbk673 Cr eat 0.8 mg/dL 12/22/2015 Comp Metabolic Hog617 eG FR 80 ml/min/1.73m2 12/22 Comp Metabolic Vie095 BUN 18 mg/dL 12/22/2015 Comp Metabolic Rnf355 B/ C Ratio 23.7 Ratio 12/22/2015 Comp Metabolic Fuq440 CA LCIUM 9.4 mg/dL 12/22/2015 Comp Metabolic Lpz202 AL K PHOS 75 U/L 12/22/2015 Comp Metabolic Yih668 T(SGOT) 19 U/L 12/22/2015 Comp Metabolic Hed543 AL T(SGPT) 20 U/L 12/22/2015 Comp Metabolic Shp371 BI LI T 0.5 mg/dL 12/22/2015 Comp Metabolic Qrn032 AL BUMIN 3.9 g/dL 12/22/2015 Comp Metabolic Hht857 TP RO 6.2 g/dL 12/22/2015 Comp Metabolic Mgo146 GL OB 2.3 g/dL 12/22/2015 Comp Metabolic Tdw602 A/ G Ratio 1.7 Ratio 12/22/2015 Comp Metabolic Tht824 Os mo 278 mOsmo 12/22/2015 Ra Factor Gav509 RA FACT OR <10 IU/ml 12/22/2015 Lipid Ord30 CHOL 150 mg/dL 12/22/2015 Lipid Ord30 HDL 49.0 mg/dl 12/22/2015 Lipid Ord30 TRIG 108 mg/dL 12/22/2015 Lipid Ord30 LDL 79 mg/dL 12/22/2015 Lipid Ord30 C/HDL 3.1 Ratio 12/22/2015 %Hba1C Feb368 % HbA1c 25403-6 6.2 % 12/22/2015 %Hba1C Jns769 Gluc Ave 131 mg/dL 12/22/2015 Cbc With [...] 30.0 pg 12/22/2015 Cbc With Differential Ord2 [place]% 7.5 % 12/22/2015 Cbc With Differential Ord2 [...] 2.06 K/ul 12/22/2015 Cbc With Differential Ord2 [place] ABS# 0.4 K/ul 12/22/2015 Cbc With Differential [...] Ord2 RDW 14.2 % 06/21/2015 Comp Metabolic Gbi143 NA 135 mEq/L 06/21/2015 Comp Metabolic Iac587 K 4.2 mEq/L 06/21/2015 Comp Metabolic Vof275 CL 99 mEq/L 06/21/2015 Comp Metabolic Poy377 CO2 27.0 mEq/L 06/21/2015 Comp Metabolic Ddu247 AN ION GAP 13 06/21/2015 Comp Metabolic Pgj616 GL UCOSE 94 mg/dL 06/21/2015 Comp Metabolic Qxp108 Cr eat 0.8 mg/dL 06/21/2015 Comp Metabolic Xym105 eG FR 81 ml/min/1.73m2 06/21 Comp Metabolic Tqw475 BUN 16 mg/dL 06/21/2015 Comp Metabolic Doc618 B/ C Ratio 21.3 Ratio 06/21/2015 Comp Metabolic Njy283 CA LCIUM 9.4 mg/dL 06/21/2015 Comp Metabolic Ubb566 AL K PHOS 164 U/L 06/21/2015 Comp Metabolic Tgb206 T(SGOT) 22 U/L 06/21/2015 Comp Metabolic Mfz512 AL T(SGPT) 23 U/L 06/21/2015 Comp Metabolic Zbt945 BI LI T 0.4 mg/dL 06/21/2015 Comp Metabolic Dkl042 AL BUMIN 4.0 g/dL 06/21/2015 Comp Metabolic Hia732 TP RO 6.6 g/dL 06/21/2015 Comp Metabolic Tja922 GL OB 2.6 g/dL 06/21/2015 Comp Metabolic Ebv622 A/ G Ratio 1.5 Ratio 06/21/2015 Comp Metabolic Qzk063 Os mo 271 mOsmo 06/21/2015 URINALYSIS NONAUTO W/O SCOPE 03388 Specific Sesser 1.010 DateTime(Free Text in ) URINALYSIS NONAUTO W/O SCOPE 90922 PH 6.0 DateTime(Free [place]ism[place] t in ) URINALYSIS NONAUTO W/O SCOPE 49702 GLUCOSE NEG DateTime(Free [place] t in Apr) URINALYSIS NONAUTO W/O SCOPE 22072 Protein NEG DateTime(Free [place] t in Apr) URINALYSIS NONAUTO W/O SCOPE 88929 Blood TRACE DateTime(Free T ext in ) URINALYSIS NONAUTO W/O SCOPE 19499 Bilirubin NEG DateTime(Free [place] t in Apr) URINALYSIS NONAUTO W/O SCOPE 88535 Ketones NEG DateTime(Free Te xt in ) URINALYSIS NONAUTO W/O SCOPE 18790 Urobilinogen NEG DateTime(Free Text in Apr) URINALYSIS NONAUTO W/O SCOPE 67093 Nitrite NEG DateTime(Free [place]ism[place] t in Aprima) URINALYSIS NONAUTO W/O SCOPE 47656 Leukocytes NEG DateTime(Free Text in Apr) UA 09202 Specific Sesser 1.020 DateTime(Free Text in ) UA 43721 PH 5.0 DateTime(Free Text in Apr ) UA 49420 Protein neg DateTime(Free Text in ) UA 30098 Blood neg DateTime(Free Text in ) UA 83335 Bilirubin neg DateTime(Free Text in ) UA 74380 Ketones neg DateTime(Free Text in Febima ) UA 93636 Urobilinogen 0.2 DateTime(Free Text in ) UA 12062 Nitrite neg DateTime(Free Text in ) UA 97524 Leukocytes neg DateTime(Free Text in ) Review [...] accomodation 06/24/2019 None Full Exam - General 1994 [...] clear 03/24/2014 None Full Exam - General 1995 Ears/Nose/Throat oral cavity/pharynx/larynx Overall: oral mucosa clear 03/24/2014 None Full Exam - General 1995 Ears/Nose/Throat [...] accomodation 01/20/2014 None Full Exam - General 1995 Ears/Nose/Throat otoscopic exam Overall: external auditory canals clear 01/20/2014 None Full Exam - General 1995 Ears/Nose/Throat otoscopic exam Overall: tympanic membranes clear 01/20/2014 None Full Exam - General 1995 Ears/Nose/Throat oral cavity/pharynx/larynx Overall: oral mucosa clear 01/20/2014 None Full Exam - General 1994 Ears/Nose/Throat oral cavity/pharynx/larynx Overall: oropharyngeal mucosa clear 01/20/2014 None Full Exam - General 1995 Ears/Nose/Throat oral cavity/pharynx/larynx Overall: no masses 01/20/2014 [...] clear 12/20/2013 None Full Exam - General 1995 Ears/Nose/Throat oral cavity/pharynx/larynx Overall: oral mucosa clear 12/20/2013 None Full Exam - General 1995 Ears/Nose/Throat [...] accomodation 10/25/2013 None Full Exam - General 1994 [...] tenderness 10/25/2013 None Full Exam - General 1995 Abdomen [...] sounds 10/19/2013 None Full Exam - General 1995 Musculoskeletal spine, ribs and pelvis Overall: good posture 10/19/2013 None Full Exam - General 1995 Constitutional general appearance Overall: well developed 10/19/2013 None Full Exam - General 1995 Constitutional general appearance Overall: in no acute distress 10/19/2013 None Full Exam - General 1995 Constitutional general appearance Overall: well nourished 10/19/2013 None Full Exam - General 1994 Eyes pupils and irises Overall: pupils equal, round, reactive to light and accomodation 10/19/2013 None Full Exam - General 1995 Ears/Nose/Throat otoscopic exam Overall: external auditory canals clear 10/19/2013 None Full Exam - General 1995 Musculoskeletal spine, ribs and pelvis Palpation: a normal exam 10/19/2013 previous left inner thigh tenderness resolved. Full Exam - General 1995 Musculoskeletal head and neck Overall: head atraumatic 10/19/2013 None Full Exam - General 1995 Musculoskeletal head and neck Overall: cervical spine benign 10/19/2013 None Full Exam - General 1994 Neurologic gait Overall: no ataxia, no unsteadiness 10/19/2013 None Full Exam - General 1995 Neurologic cranial nerves Overall: crainial nerves 2 - 12 grossly intact 10/19/2013 None Full Exam - General 1994 Psychiatric orientation/consciousness Overall: oriented to person, place and time 10/19/2013 None Full Exam - General 1994 Psychiatric mood and affect Overall: normal mood and affect 10/19/2013 None Full Exam - General 1994 Psychiatric mood and affect Mood: happy 10/19/2013 None Full Exam - General 1994 Musculoskeletal head and neck Overall: cervical spine benign 05/25/2013 None Full Exam - General 1994 Neurologic gait Overall: no ataxia, no unsteadiness 05/25/2013 None Full Exam - General 1994 Neurologic [...] distress 05/25/2013 None Full Exam - General 1995 Constitutional general appearance Overall: well nourished 05/25/2013 [...] accomodation 02/18/2013 None Full Exam - General 1995 [...] retractions 02/18/2013 None Full Exam - General 1994 Respiratory respiratory effort/rhythm Overall: normal rate 02/18/2013 None Full Exam - General 1994 Cardiovascular inspection of carotid pulses Overall: strong, bilaterally equal, no bruits 02/18/2013 None Full Exam - General 1994 Cardiovascular auscultation of heart Overall: regular rate 02/18/2013 None Full Exam - General 1994 Cardiovascular auscultation of heart Overall: normal heart sounds 02/18/2013 None Full Exam - General 1994 Cardiovascular auscultation of heart Overall: no murmurs 02/18/2013 None Full Exam - General 1994 Abdomen abdominal exam Overall: no tenderness 02/18/2013 None Full Exam - General 1994 Abdomen [...] rate 05/18/2012 None Full Exam - General 1995 Cardiovascular auscultation of heart Overall: regular rate 05/18/2012 None Full Exam - General 1995 Cardiovascular auscultation of heart Overall: normal heart sounds 05/18/2012 None Full Exam - General 1995 Cardiovascular [...] happy 05/18/2012 None Full Exam - General 1994 [...] developed 02/11/2012 None Full Exam - General 1995 Constitutional general appearance Overall: in no acute [...] unsteadiness 02/11/2012 None Full Exam - General 1994 [...] time 01/14/2012 None Full Exam - General 1995 Psychiatric mood and affect Mood: happy 01/14/2012 [...] Procedure Codes Date THER/PROPH/DIAG INJ SC/IM CPT-4: 17213 06/24/2019 TRIAMCINOLONE ACET I [place] NOS CPT-4: J3301 06/24/2019 PPPS, SUBSEQ VISIT CPT- 4: G0439 11/04/2016 TRIAMCINOLONE ACET I [place] NOS CPT-4: J3301 09/03/2016 URINALYSIS NONAUTO W /O SCOPE CPT-4: 89193 06/23/2015 TRIAMCINOLONE ACET I [place] NOS CPT-4: J3301 03/28/2015 FOOT EXAM PERFORMED SNOMED CT: 21166406 CPT-4: 2028F 12/20/2013 PRESCRIP TRANSMIT A ERX SY CPT-4: G8553 10/25/2013 PRESCRIP TRANSMIT A ERX SY CPT-4: G8553 10/01/2012 URINALYSIS NONAUTO W /O SCOPE CPT-4: 40480 02/11/2012 PRESCRIP TRANSMIT A ERX SY CPT-4: G8553 02/11/2012 Vital Signs Date Vital 06/24/2019 Blood Pressure 1: 118/74 Code: 8480-6 BMI: 34.2 Code: 31646-7 Heart Rate 1: 73 bpm Height: 5'3" SpO2: 98% Weight: 193 lbs 04/21/2019 Blood Pressure 1: 150/72 Code: 8480-6 BMI: 34.9 Code: 49660-0 Heart Rate 1: 81 bpm Height: 5'3" SpO2: 98% Weight: 197 lbs 02/17/2019 Blood Pressure 1: 140/72 Code: 8480-6 Heart Rate 1: 82 bpm Height: SpO2: 97% Temperature: 36.8 (C ) / 98.2 (F) Weight: 08/27/2018 Blood Pressure 1: 150/72 Code: 8480-6 BMI: 33.8 Code: 30953-2 Heart Rate 1: 77 bpm Height: 5'3" SpO2: 98% Weight: 191 lbs 02/24/2018 Blood Pressure 1: 140/72 Code: 8480-6 BMI: 33.5 Code: 26441-5 Heart Rate 1: 78 bpm Height: 5'3" SpO2: 98% Weight: 189 lbs 11/03/2017 Blood Pressure 1: 140/72 Code: 8480-6 BMI: 33.2 Code: 28265-9 Heart Rate 1: 71 bpm Height: 5'3" SpO2: 98% Weight: 187 lbs 8 oz 08/08/2017 Blood Pressure 1: 140/66 Code: 8480-6 BMI: 33.1 Code: 79413-8 Heart Rate 1: 73 bpm Height: 5'3" SpO2: 97% Weight: 187 lbs 07/10/2017 Blood Pressure 1: 144/74 Code: 8480-6 BMI: 33.5 Code: 31094-4 Heart Rate 1: 78 bpm Height: 5'3" SpO2: 94% Weight: 189 lbs 03/06/2017 Blood Pressure 1: 140/86 Code: 8480-6 BMI: 32.9 Code: 00337-9 Heart Rate 1: 68 bpm Height: 5'3" SpO2: 98% Weight: 186 lbs 03/04/2017 Blood Pressure 1: 136/82 Code: 8480-6 Heart Rate 1: 61 bpm Height: 5'3" SpO2: 97% Temperature: 36.6 (C ) / 97.8 (F) Weight: 11/04/2016 Blood Pressure 1: 146/76 Code: 8480-6 BMI: 34.7 Code: 56776-8 Heart Rate 1: 70 bpm Height: 5'3" SpO2: 97% Waist Measure (cm): 107 cm Weight: 196 lbs 10/23/2016 Blood Pressure 1: 148/78 Code: 8480-6 BMI: 34.7 Code: 98832-4 Heart Rate 1: 68 bpm Height: 5'3" SpO2: 97% Weight: 196 lbs 10/03/2016 Blood Pressure 1: 142/78 Code: 8480-6 BMI: 34.7 Code: 13117-5 Heart Rate 1: 72 bpm Height: 5'3" SpO2: 98% Weight: 196 lbs 09/03/2016 Blood Pressure 1: 128/88 Code: 8480-6 Heart Rate 1: 86 bpm SpO2: 96% 08/21/2016 Blood Pressure 1: 128/62 Code: 8480-6 BMI: 35.1 Code: 84946-6 Heart Rate 1: 80 bpm Height: 5'3" SpO2: 98% Weight: 198 lbs 07/24/2016 Blood Pressure 1: 150/86 Code: 8480-6 BMI: 34.4 Code: 39174-8 Heart Rate 1: 72 bpm Height: 5'3" SpO2: 97% Weight: 194 lbs 04/24/2016 Blood Pressure 1: 138/76 Code: 8480-6 BMI: 34.2 Code: 93020-0 Heart Rate 1: 71 bpm Height: 5'3" SpO2: 98% Weight: 193 lbs 01/18/2016 Blood Pressure 1: 140/72 Code: 8480-6 BMI: 33.4 Code: 40486-5 Heart Rate 1: 69 bpm Height: 5'3" SpO2: 98% Weight: 188 lbs 8 oz 12/21/2015 Blood Pressure 1: 158/78 Code: 8480-6 BMI: 33.3 Code: 94228-4 Heart Rate 1: 66 bpm Height: 5'3" SpO2: 98% Weight: 188 lbs 08/17/2015 Blood Pressure 1: 132/76 Code: 8480-6 BMI: 30.5 Code: 28135-6 Heart Rate 1: 66 bpm Height: 5'3" Respiratory Rate: 18 bpm SpO2: 97% Weight: 172 lbs 06/23/2015 Blood Pressure 1: 160/80 Code: 8480-6 Blood Pressure 2: 170/86 Code: 8480-6 BMI: 28.3 Code: 87720-8 Heart Rate 1: 96 bpm Height: 5'3" SpO2: 98% Temperature: 37.3 (C ) / 99.1 (F) Weight: 160 lbs 06/21/2015 Blood Pressure 1: 132/78 Code: 8480-6 Heart Rate 1: 106 bpm SpO2: 98% Temperature: 37.3 (C ) / 99.2 (F) Weight: 166 lbs 03/28/2015 Blood Pressure 1: 160/84 Code: 8480-6 Blood Pressure 2: 138/78 Code: 8480-6 BMI: 32.1 Code: 00117-0 Heart Rate 1: 86 bpm Height: 5'3" SpO2: 97% Weight: 181 lbs 07/07/2014 Blood Pressure 1: 138/82 Code: 8480-6 BMI: 32.6 Code: 74222-3 Heart Rate 1: 82 bpm Height: 5'3" SpO2: 96% Weight: 184 lbs 03/24/2014 Blood Pressure 1: 138/64 Code: 8480-6 BMI: 32.4 Code: 05854-6 Heart Rate 1: 72 bpm Height: 5'3" Weight: 183 lbs 01/20/2014 Blood Pressure 1: 149/69 Code: 8480-6 Blood Pressure 2: 170/82 Code: 8480-6 Heart Rate 1: 81 bpm Weight: 183 lbs 12/20/2013 Blood Pressure 1: 150/78 Code: 8480-6 BMI: 32.6 Code: 54460-3 Heart Rate 1: 76 bpm Height: 5'3" Weight: 184 lbs 10/25/2013 Blood Pressure 1: 167/80 Code: 8480-6 BMI: 33.3 Code: 21201-7 Heart Rate 1: 60 bpm Height: 5'3" Weight: 188 lbs 10/19/2013 Blood Pressure 1: 136/78 Code: 8480-6 BMI: 33.1 Code: 56227-6 Height: 5'3" Weight: 187 lbs 05/25/2013 Blood Pressure 1: 134/82 Code: 8480-6 BMI: 33.5 Code: 78828-7 Heart Rate 1: 80 bpm Height: 5'3" Weight: 189 lbs 02/18/2013 Blood Pressure 1: 158/88 Code: 8480-6 Blood Pressure 2: 158/90 Code: 8480-6 BMI: 33.7 Code: 36598-6 Heart Rate 1: 80 bpm Height: 5'3" Weight: 190 lbs 10/01/2012 Blood Pressure 1: 138/62 Code: 8480-6 Heart Rate 1: 76 bpm Weight: 184 lbs 05/18/2012 Blood Pressure 1: 150/82 Code: 8480-6 Blood Pressure 2: 136/84 Code: 8480-6 BMI: 32.1 Code: 40157-2 Heart Rate 1: 71 bpm Height: 5'3" SpO2: 98% Weight: 181 lbs 02/11/2012 Blood Pressure 1: 126/56 Code: 8480-6 Heart Rate 1: 68 bpm Respiratory Rate: 16 bpm Weight: 184 lbs 01/14/2012 Blood Pressure 1: 158/80 Code: 8480-6 BMI: 33.9 Code: 03807-2 Heart Rate 1: 60 bpm Height: 5'3" [...] 1 months ago 06/23/2015 since back surgery 7-13 edema Pertinent Findings back pain 06/23/2015 None [...] readings at home 02/11/2012 None 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 P ATIENT, LEVEL III Diagnosis: Rash and other nonspecific skin eruption[ICD10: R21] Diagnosis: Allergic contact dermatitis due to cosmetics[ICD10: L23.2] Carmelina Ott MD, [facility] CPT-4: 28660 06/24/2019 ([id number]) 38178 EST. P ATIENT, LEVEL IV Diagnosis: Essential (primary) hypertension[ICD10: I10] Diagnosis: Type 2 diabetes mellitus without complications[ICD10: E11.9] Diagnosis: Atrophy of thyroid (acquired)[ICD10: E03.4] Diagnosis: Mixed hyperlipidemia[ICD10: E78.2] Carmelina Ott MD, [facility] CPT- 4: 56079 04/21/2019 23702 EST. PATIENT, LEVEL III Diagnosis: Acute laryngopharyngitis[ICD10: J06.0] Diagnosis: Other allergic rhinitis[ICD10: J30.89] Luz Ott MD, [facility] CPT-4: 47730 02/17/2019 ([id number]) 34277 EST. P ATIENT, LEVEL IV Diagnosis: Type 2 diabetes mellitus with diabetic polyneuropathy[ICD10: E11.42] Diagnosis: Pain in left leg[ICD10: M79.605] Diagnosis: Pain in right leg[ICD10: M79.604] Carmelina Ott MD, [facility] CPT-4: 91601 08/27/2018 ([id number]) Miscellaneou s no charge Diagnosis: Other fatigue[ICD10: R53.83] Carmelina Ott MD, [facility] CPT-4: 10256 06/17/2018 ([id number]) 69358 EST. P [facility], LEVEL IV Diagnosis: Essential (primary) hypertension[ICD10: I10] Diagnosis: Hypothyroidism, unspecified[ICD10: E03.9] Diagnosis: Type 2 diabetes mellitus without complications[ICD10: E11.9] Diagnosis: Chronic pain syndrome[ICD10: G89.4] Diagnosis: Vitamin B12 deficiency anemia, unspecified[ICD10: D51.9] Diagnosis: Unsteadiness on feet[ICD10: R26.81] Nicki Ott MD, [facility] CPT-4: 72222 02/24/2018 ([id number]) 81325 EST. P [facility], LEVEL IV Diagnosis: Type 2 diabetes mellitus without complications[ICD10: E11.9] Diagnosis: Hypothyroidism, unspecified[ICD10: E03.9] Diagnosis: Essential (primary) hypertension[ICD10: I10] Diagnosis: Pain in left shoulder[ICD10: M25.512] [facility] CPT-4: 26844 11/03/2017 ([id number]) 68786 EST. P [facility], LEVEL III Diagnosis: Essential (primary) hypertension[ICD10: I10] Diagnosis: Major depressive disorder, recurrent, mild[ICD10: F33.0] Diagnosis: Other allergic rhinitis[ICD10: J30.89] Nicki Ott MD, [facility] CPT-4: 79747 08/08/2017 ([id number]) 28420 EST. P ATIENT, LEVEL IV Diagnosis: Hypothyroidism, unspecified[ICD10: E03.9] Diagnosis: Major depressive disorder, recurrent, mild[ICD10: F33.0] Diagnosis: Myalgia[ICD10: M79.1] Diagnosis: Chronic pain syndrome[ICD10: G89.4] Diagnosis: Essential (primary) hypertension[ICD10: I10] Nicki Ott MD, [facility] CPT-4: 05379 07/10/2017 ([id number]) 70012 EST. P ATIENT, LEVEL IV Diagnosis: Essential (primary) hypertension[ICD10: I10] Diagnosis: Atrophy of thyroid (acquired)[ICD10: E03.4] Diagnosis: Sacroiliitis, not elsewhere classified[ICD10: M46.1] Diagnosis: Mixed hyperlipidemia[ICD10: E78.2] Carmelina Ott MD, [facility] CPT- 4: 74106 03/06/2017 ([id number]) 15279 EST. P ATIENT, LEVEL II Diagnosis: Rash and other nonspecific skin eruption[ICD10: R21] Nicki Ott MD, [facility] CPT-4: 77423 03/04/2017 ([id number]) 42368 EST. P ATIENT, LEVEL IV Diagnosis: Type 2 diabetes mellitus without complications[ICD10: E11.9] Diagnosis: Essential (primary) hypertension[ICD10: I10] Diagnosis: Atrophy of thyroid (acquired)[ICD10: E03.4] Carmelina Ott MD, [facility] CPT-4: 28463 10/23/2016 59226 EST. PATIENT, LEVEL III Diagnosis: Other specified hypothyroidism[ICD10: E03.8] Diagnosis: Other specified anemias[ICD10: D64.89] Diagnosis: Pain in thoracic spine[ICD10: M54.6] Luz Ott MD, [facility] CPT- 4: 74377 10/03/2016 73790 EST. PATIENT, LEVEL II Diagnosis: Insect bite (nonvenomous) of other part of head, initial encounter[ICD10: S00.86XA] Nicki Ott MD, [facility] CPT-4: 68441 09/03/2016 ([id number]) 59414 EST. P ATIENT, LEVEL IV Diagnosis: Type 2 diabetes mellitus without complications[ICD10: E11.9] Diagnosis: Hypothyroidism, unspecified[ICD10: E03.9] Diagnosis: Essential (primary) hypertension[ICD10: I10] Carmelina Ott MD, [facility] CPT-4: 92596 08/21/2016 ([id number]) 43215 EST. P ATIENT, LEVEL IV Diagnosis: Essential (primary) hypertension[ICD10: I10] Diagnosis: Supraventricular tachycardia[ICD10: I47.1] Diagnosis: Other fatigue[ICD10: R53.83] Carmelina Ott MD, [facility] CPT-4: 47865 07/24/2016 ([id number]) 28159 EST. P ATIENT, LEVEL IV Diagnosis: Type 2 diabetes mellitus without complications[ICD10: E11.9] Diagnosis: Essential (primary) hypertension[ICD10: I10] Diagnosis: Hypothyroidism, unspecified[ICD10: E03.9] Carmelina Ott MD, [facility] CPT-4: 79151 04/24/2016 ([id number]) 78403 EST. P ATIENT, LEVEL IV Diagnosis: Type 2 diabetes mellitus without complications[ICD10: E11.9] Diagnosis: Type 2 diabetes mellitus with diabetic polyneuropathy[ICD10: E11.42] Carmelina Ott MD, [facility] CPT-4: 76359 01/18/2016 ([id number]) 52734 EST. P ATIENT, LEVEL IV Diagnosis: Urticaria, unspecified[ICD10: L50.9] Diagnosis: Dermatographic urticaria[ICD10: L50.3] Diagnosis: Hypothyroidism, unspecified[ICD10: E03.9] Diagnosis: Type 2 diabetes mellitus without complications[ICD10: E11.9] Diagnosis: Mixed hyperlipidemia[ICD10: E78.2] Diagnosis: Myalgia[ICD10: M79.1] Diagnosis: Essential (primary) hypertension[ICD10: I10] Carmelina Ott MD, [facility] CPT-4: 81774 12/21/2015 ([id number]) 11209 EST. P ATIENT, LEVEL IV Diagnosis: Hypothyroidism, unspecified[ICD10: E03.9] Diagnosis: Essential (primary) hypertension[ICD10: I10] Diagnosis: Urticaria, unspecified[ICD10: L50.9] Carmelina Ott MD, [facility] CPT-4: 94678 08/17/2015 ([id number]) Miscellaneou s no charge Diagnosis: ESSENTIAL HYPERTENSION[ICD9: 401.9] Diagnosis: Elevated temperature[ICD9: 780.60] Diagnosis: EDEMA[ICD9: 782.3] Katja Ott MD, [facility] CPT-4: 06038 06/23/2015 ([id number]) 35553 EST. P ATIENT, LEVEL IV Diagnosis: ESSENTIAL HYPERTENSION[ICD9: 401.9] Diagnosis: TACHYCARDIA[ICD9: 785.0] Diagnosis: Dyspnea[ICD9: 786.09] Katja Ott MD, [facility] CPT-4: 08780 06/21/2015 ([id number]) 98286 EST. P ATIENT, LEVEL III Diagnosis: Sacroiliitis[ICD9: 720.2] Diagnosis: LUMBAGO[ICD9: 724.2] Nicki Ott MD, [facility] CPT-4: 03489 03/28/2015 ([id number]) 37537 EST. P ATIENT, LEVEL IV Diagnosis: HYPOTHYROIDISM[ICD9: 244.9] Diagnosis: ESSENTIAL HYPERTENSION[ICD9: 401.9] Diagnosis: DIABETES TYPE II[ICD9: 250.00] Diagnosis: HYPERLIPIDEMIA[ICD9: 272.4] Diagnosis: Muscle ache[ICD9: 729.1] Carmelina Ott MD, [facility] CPT-4: 27778 07/07/2014 ([id number]) 11812 EST. P ATIENT, LEVEL IV Diagnosis: DIABETES TYPE II[SNOMED: 097311032] Diagnosis: ESSENTIAL HYPERTENSION[SNOMED: 70594517] Diagnosis: HYPOTHYROIDISM[ICD9: 244.9] Carmelina Ott MD, [facility] CPT-4: 29788 03/24/2014 ([id number]) 34937 EST. P ATIENT, LEVEL III Diagnosis: DIABETES TYPE II[SNOMED: 360802431] Diagnosis: ESSENTIAL HYPERTENSION[SNOMED: 49837559] Carmelina Ott MD, [facility] CPT-4: 45248 01/20/2014 ([id number]) 94377 EST. P ATIENT, LEVEL IV Diagnosis: DIABETES TYPE II[SNOMED: 256531324] Diagnosis: ESSENTIAL HYPERTENSION[SNOMED: 00531585] Diagnosis: Peripheral neuropathy, idiopathic[ICD9: 356.9] Carmelina Ott MD, C CPT-4: 91062 12/20/2013 ([id number]) 83073 EST. P ATIENT, LEVEL IV Diagnosis: DIABETES TYPE II[SNOMED: 181363623] Diagnosis: ESSENTIAL HYPERTENSION[SNOMED: 62208615] Diagnosis: Dietary counseling and surveillance[ICD9: V65.3] Carmelina Ott MD, C CPT-4: 03025 10/25/2013 ([id number]) 77399 EST. P ATIENT, LEVEL IV Diagnosis: DIABETES TYPE II[SNOMED: 142247753] Diagnosis: ESSENTIAL HYPERTENSION[SNOMED: 83131713] Diagnosis: HYPOTHYROIDISM[ICD9: 244.9] Carmelina Ott MD, [facility] CPT-4: 53904 10/19/2013 ([id number]) 21917 EST. P ATIENT, LEVEL IV Diagnosis: ESSENTIAL HYPERTENSION[SNOMED: 57262430] Diagnosis: DIABETES TYPE II[SNOMED: 559841809] Diagnosis: HYPOTHYROIDISM[ICD9: 244.9] Carmelina Ott MD, [facility] CPT-4: 84516 05/25/2013 ([id number]) 67400 EST. P ATIENT, LEVEL IV Diagnosis: DIABETES TYPE II[SNOMED: 617935847] Diagnosis: ESSENTIAL HYPERTENSION[SNOMED: 37936761] Diagnosis: HYPOTHYROIDISM[ICD9: 244.9] Carmelina Ott MD, [facility] CPT-4: 28335 02/18/2013 ([id number]) 94552 EST. P ATIENT, LEVEL III Diagnosis: ESSENTIAL HYPERTENSION[SNOMED: 85484422] Carmelina Ott MD, [facility] CPT-4: 97516 10/01/2012 ([id number]) 43839 EST. P ATIENT, LEVEL IV Diagnosis: DIABETES TYPE II[SNOMED: 447324299] Diagnosis: ESSENTIAL HYPERTENSION[SNOMED: 69245827] Carmelina Ott MD, [facility] CPT-4: 49410 05/18/2012 ([id number]) 14386 EST. P ATIENT, LEVEL IV Diagnosis: DIABETES TYPE II[SNOMED: 221753561] Diagnosis: HYPOTHYROIDISM[ICD9: 244.9] Diagnosis: UTI (lower urinary tract infection)[ICD9: 599.0] Diagnosis: Vaginal yeast infection[ICD9: 112.1] Diagnosis: Rectal lump[ICD9: 787.99] Diagnosis: Abdominal bloating[ICD9: 787.3] Carmelina Ott MD, [facility] CPT-4: 65731 02/11/2012 ([id number] 37100 EST. P ATIENT, LEVEL IV Diagnosis: ESSENTIAL HYPERTENSION[SNOMED: 51586000] Diagnosis: DIABETES TYPE II[SNOMED: 263573621] Diagnosis: HYPERLIPIDEMIA[ICD9: 272.4] Diagnosis: HYPOTHYROIDISM[ICD9: 244.9] Carmelina Ott MD, [facility] CPT-4: 12742 01/14/2012 Plan of Care Planned Activity Notes C odes Status Date Visit Plan: Allergic contact dermat itis - discussed with the patient - avoid the eugene product that has caused this reaction - kenalog injection today, prednisone rx sent to pharmacy. 06/24/2019 Patient Education: Patient Medication Summary Completed [...] to medications. 04/21/2019 Appointment: Carmelina Ott WPtel: [facility] (15 min) Moderate 04/21/2019 Patient Education: [...] allergy spray. 02/17/2019 Appointment: Luz Latham WPtel: [facility] (15 min) Moderate 02/17/2019 Patient Education: Patient Medication Summary Completed 02/17/2019 Patient Education: Patient Medication Summary Completed 12/31/2018 Appointment: Carmelina Ott WPtel: [facility] (15 min) Moderate 12/28/2018 Patient Education: Patient [...] with Cymbalta. 08/27/2018 [facility]ment[phone] (15 min) Moderate 08/27/2018 Patient Education: Patient [...] Gait instabilty-patient going to do PT at [facility] 02/24/2018 Appointment: Nicki Cabral [facility]Ptel: [phone] [facility] (30 min) Complex 02/24/2018 Patient Education: Patient [...] not improved. 11/03/2017 Appointment: Nicki Cabral WPtel: [facility] [address] (30 min) Complex 11/03/2017 Patient Education: [...] spray in the nasal steroid allergy spray. [id number] cymbalta 08/08/2017 Appointment: Nicki Cabral WPtel: [phone] [phone] (30 min) Complex 08/08/2017 Patient Education: Patient [...] patient. 07/10/2017 Appointment: [phone] [facility] (15 min) Moderate 07/10/2017 Appointment: Nicki Cabral WPtel: [phone] [facility] [address] (30 min) Complex 07/10/2017 Patient Education: Patient [...] recommended pt to continue with aleve, get [place] to use on your knee and hip [...] control. 03/06/2017 Appointment: Carmelina Ott WPtel: [phone] [facility] (15 min) Moderate 03/06/2017 Patient Education: Patient Medication Summary Completed 03/06/2017 Patient Education: Obesity Completed 03/06/2017 Visit Plan: Rash-very faint-will cu lture the rash today- recommend emollient such as eucerin cream or cerave-call if rash does not resolve or if any worse. Patient verbalized understanding of plan. 03/04/2017 Appointment: Nicki Cabral WPtel: [phone] [place] (15 min) Moderate 03/04/2017 Patient Education: Patient Medication Summary Completed 03/04/2017 Appointment: Carmelina Ott WPtel: [facility] (15 min) Moderate 02/19/2017 Visit Plan: [...] care surrogate. 11/04/2016 Appointment: Luz Latham WPtel: [facility] [facility] - Annual Wellness Visit 11/04/2016 Patient Education: [...] control. 10/23/2016 Appointment: [phone] [facility] (15 min) Moderate 10/23/2016 Patient Education: Patient [...] control. 10/03/2016 Appointment: Luz Latham WPtel: [phone] [facility] [address] (30 min) Complex 10/03/2016 Patient Education: Patient Medication Summary Completed 10/03/2016 Patient Education: Obesity Completed 10/03/2016 Visit Plan: Insect bite-right cheek -kenalog injection today in the office-use benadryl cream as needed for itching. Call for s/s of infection-increase redness, warmth, induration. Patient verbalized understanding of plan. 09/03/2016 Appointment: Nicki Cabral WPtel: [phone] [facility] [place] [address] (15 min) Moderate 09/03/2016 Patient Education: Patient [...] control. 08/21/2016 Appointment: Carmel[facility] Ott [phone] [facility] (15 min) Moderate 08/21/2016 Patient Education: Patient [...] control. 04/24/2016 Appointment: [phone] [facility] (15 min) Moderate 04/24/2016 Patient Education: Patient [...] neuropathy. 01/18/2016 App[facility]ment[id number] [place] (15 min) Moderate 01/18/2016 Patient Education: Patient [...] today. 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 07/07/2014 Appointment: Carmelina Ott WPtel: [address] [place], [place] [id number] Follow up 07/07/2014 Patient Education: Patient Medication [...] of control. 03/24/2014 Appointment: Carmelina Ott WPtel: [phone] [facility] Follow up 03/24/2014 Patient Education: Patient Medication [...] controlled. 01/20/2014 Appointment: [phone] [id number] [facility] 01/20/2014 Patient Education: Patient Medication Summary Completed 01/20/2014 Patient Education: Hypertension Completed 01/20/2014 Appointment: Carmelina Ott WPtel: [id number] [facility] 01/17/2014 Visit Plan: Diabetes Mellitus [...] control. 12/20/2013 Appointment: [facility]el[phone] [id number] [facility] 12/20/2013 Patient Education: Patient Medication Summary Completed [...] WEEK 10/25/2013 Appointment: [id number] Di[facility] education 10/25/2013 Patient Education: Patient Medication [...] control. 10/19/2013 Appointment: Carmelina Ott WPtel: [phone] [facility] Follow up 10/19/2013 Patient Education: Patient Medication Summary Completed 10/19/2013 Patient Education: Hypertension Completed 10/19/2013 Appointment: Carmelina Ott WPtel: [phone] [facility] Follow up 09/23/2013 Visit Plan: Hypertension - [...] of control. 05/25/2013 Appointment: Carmelina Ott WPtel: [facility] Follow up 05/25/2013 Patient Education: Patient Medication Summary Completed 05/25/2013 Patient Education: Hypertension Completed 05/25/2013 Appointment: Carmelina Ott WPtel: [facility] Follow up 05/19/2013 Visit Plan: Diabetes Mellitus [...] months. 02/18/2013 Appointment: [id number] [facility] 02/18/2013 Patient Education: Patient Medication [...] resolved. 10/01/2012 Appointment: [id number] Other 10/01/2012 Patient Education: Patient Medication Summary [...] for yeast 02/11/2012 Appointment: Carmelina Ott WPtel: [address] [place], [place] [id number] pt will comment on meaningful use (from 01/14/12) Other 02/11/2012 Patient Education: Patient Medication Summary Completed 02/11/2012 Visit Plan: Diabetes Mellitus - con trolled [...] exercises. 01/14/2012 Appointment: [phone] [id number] Other 01/14/2012 Patient Education: Patient Medication Summary Completed 01/14/2012 Patient Education: High Blood Pressure: Essential Hypertension Completed 01/14/2012 Referral: Andrew Madera Referral Relationship Referral: Ravi Gaston WPtel: [phone] [id number] [place] Referral Relationship Referral: Ella Saldana Referral [...] ick to lip Chest X-Ray at [facility] today We will write referral order for [...] ick to lip Chest X-Ray at [facility] today We will write referral order for [...] spray in the nasal steroid allergy spray. [id number]-[id number] cymbalta CYMBALTA 30MG DAILY . Hypertension - [...] Gait instabilty-patient going to do PT at [facility] . URI - Pt advised t o [...] x 2weeks and to talk to her brake lining maker about potential permanent decrease in her medication [...] x 2weeks and to talk to her brake lining maker about potential permanent decrease in her medication [...] recommended pt to continue with aleve, get [place] to use on your knee and hip [...] recommended pt to continue with aleve, get [place] to use on your knee and hip [...]
--- OUTSIDE RECORDS SUMMARY | 2020-05-26 12:11 | XMS REPORT | CCD ---
Author Author Aleyda Ott me Organization Carmelina Ott MD, [facility] Address [address] [place] [address] Phone Care Team Providers Care Silver Plater Name Role Phone PP Unavailable CCM Unavailable Summary Purpose Interface Exchange Insurance Providers Payer name Policy type / Coverage type Covered republican ID Effective Begin Date Effective End Date WPS Medicare Part B Medicare Part B [id number] 2013 Unknown [facility] icare Part B [id number] 2013 Unkno wn Family history Brother Diagnosis Age At Onset Heart disease Unknown Sister Diagnosis Age At Onset endometrial cancer Unknown Father Diagnosis Age At Onset Heart disease Unknown Mother Diagnosis Age At Onset Heart disease Unknown Social History Social History Element Codes Description Effective Dates Marital status Unknown W idowed 01/14/[address]: [id number] Nonsmoker 01/14/2012 Has the patient ever used illegal drugs? Unknown Has never used illegal drugs 012 Allergies, Adverse Reactions, Alerts Substance Reaction Codes Entered Date Inactivated Date Status * NO KNOWN FOOD CAROLA RGIES Unknown 01/14/2012 No Inactive Date Active * NO KNOWN DRUG CAROLA RGIES Unknown 01/14/2012 No Inactive Date Active Past Medical History Illness Codes Condition Status Onset Date Resolved Date Atrophy of thyroid ( acquired) ICD-9: 244.8 [...] ICD-9: 720.2 ICD-10: M46.1 Active 03/06/2017 Unknown Rash and other nonsp ecific skin eruption ICD-9: 782.1 ICD-10: R21 Active 03/04/2017 Unknown Encounter for genera l adult medical [...] Condition Codes Effectiv e Dates Condition Status Atrophy of thyroid ( acquired) ICD-9: 244.8 [...] classified ICD-9: 720.2 ICD-10: M46.1 03/06/2017 Active Rash and other nonsp ecific skin eruption ICD-9: 782.1 ICD-10: R21 03/04/2017 Active Encounter for genera l adult medical [...] Date Stop Date Sta tus Fill Instructions Zithromax Z-Sony 250 mg tablet RxNorm: 279005 Tablet(s) PO UD 02/17/2019 No Stop Date Active Synthroid 50 mcg tablet RxNorm: 843559 TAKE ONE TABLET BY MOUTH DAILY (DISCONTI NUE LEVOTHYROXINE) 12/14/2018 12/08/2019 Active metoprolol succinate ER 50 mg tablet,extended release 24 hr RxNorm: 388764 1 Tablet(s) PO QPM TAKE ONE TABLET BY MOUTH EVERY EVENING 10/20/2018 03/18/2019 Inactive metoprolol succinate ER 50 mg tablet,extended release 24 hr RxNorm: 586252 1 Tablet(s) PO QPM TAKE ONE TABLET BY MOUTH EVERY EVENING 05/08/2018 10/19/2018 Inactive Cymbalta 30 mg capsu le,delayed release RxNorm: 090671 TAKE ONE CAPSULE BY M OUTH DAILY 11/24/2017 11/18/2018 Inactive Synthroid 50 mcg tablet RxNorm: 016305 TAKE ONE TABLET BY MOUTH DAILY (DISCONTI NUE LEVOTHYROXINE) 11/24/2017 12/13/2018 Inactive Voltaren 1 % topical gel RxNorm: 698254 TOP 11/03 No Stop Date Active metoprolol succinate ER 50 mg tablet,extended release 24 hr RxNorm: 472358 1 Tablet(s) PO QPM TAKE ONE TABLET BY MOUTH EVERY EVENING 10/06/2017 05/03/2018 Inactive Synthroid 50 mcg tablet RxNorm: 773279 TAKE ONE TABLET BY MOUTH DAILY (DISCONTI NUE LEVOTHYROXINE) 09/04/2017 11/23/2017 Inactive Cymbalta 30 mg capsu le,delayed release RxNorm: 313028 1 Capsule(s) PO daily 07/10/2017 10/07/2017 In active metoprolol succinate ER 50 mg tablet,extended release 24 hr RxNorm: 465725 TAKE ONE TABLET BY MOUTH EVERY EVENING 03/06/2017 10/01/2017 Inactive Kenalog 40 mg/mL marguerite pension for injection RxNorm: 5546948 Milliliter(s) Inj 09/03/2016 09/03/2016 In active tramadol 50 mg tablet RxNorm: 177140 1 Tablet(s) PO Q4-6H as needed 08/21/2016 No Stop Date Active Synthroid 50 mcg tablet RxNorm: 515983 1 Tablet(s) PO daily 08/21/2016 08/15/2017 Inactive DC levothyroxine metoprolol succinate ER 25 mg tablet,extended release 24 hr RxNorm: 222409 1 Tablet(s) PO QAM 07/24/2016 08/20/2016 Inactive metoprolol succinate ER 50 mg tablet,extended release 24 hr RxNorm: 660204 1 Tablet(s) PO QPM 07/24/2016 02/18/2017 Inactive Synthroid 50 mcg tablet RxNorm: 453910 1 Tablet(s) PO daily 06/10/2016 08/20/2016 Inactive DC levothyroxine Synthroid 50 mcg tablet RxNorm: 032205 1 Tablet(s) PO daily 05/16/2016 06/09/2016 Inactive hydrocortisone 2.5 % topical cream RxNorm: 293155 1 Application TOP TID 05/08/2016 08/05/2016 In active hydrocortisone 2.5 % topical cream RxNorm: 252810 1 Application TOP TID 05/08/2016 05/07/2016 In active betamethasone diprop ionate 0.05 % topical cream RxNorm: 669907 1 Application TOP BID as needed 04/24/2016 05/07/2016 Inactive betamethasone diprop ionate 0.05 % topical cream RxNorm: 237407 1 Application TOP BID as needed 04/24/2016 04/23/2016 Inactive loratadine 10 mg tablet RxNorm: 241021 1 Tablet(s) PO daily 01/18/2016 05/16/2016 Inactive loratadine 10 mg dis integrating tablet RxNorm: 635354 1 Tablet(s) PO daily 01/18/2016 01/17/2016 In active Synthroid 50 mcg tablet RxNorm: 577931 1 Tablet(s) PO daily 01/01/2016 04/29/2016 Inactive Synthroid 50 mcg tablet RxNorm: 010946 1 Tablet(s) PO daily 01/01/2016 12/31/2015 Inactive prednisone 20 mg tablet RxNorm: 752829 3 Tablet(s) PO daily 09/11/2015 09/15/2015 Inactive prednisone 20 mg tablet RxNorm: 028172 3 Tablet(s) PO daily 09/11/2015 09/10/2015 Inactive Abreva 10 % topical cream RxNorm: 490812 1 Application TOP 5x daily 06/23/2015 07/12/2015 Inactive Apply to lip lesions 5 times per day for 10 days prednisone 20 mg tablet RxNorm: 436849 2 Tablet(s) PO daily x3 06/12/2015 06/14/2015 Inactive prednisone 20 mg tablet RxNorm: 561695 2 Tablet(s) PO daily x3 06/12/2015 06/11/2015 Inactive Kenalog 40 mg/mL marguerite pension for injection RxNorm: 2640606 1 Milliliter(s) Inj 03/28/2015 03/28/2015 In active hydrocodone 7.5 mg-a cetaminophen 325 mg tablet RxNorm: 103934 1 Tablet(s) PO Q4-6H as needed for back pain 03/28/2015 06/11/2015 Inactive Synthroid 50 mcg tablet RxNorm: 580355 1 Tablet(s) PO daily TAKE ONE TABLET BY MOUTH EVERY DAY 12/12/2014 12/11/2014 Inactive Synthroid 50 mcg tablet RxNorm: 487318 TAKE ONE TABLET BY MOUTH EVERY DAY 12/12/2014 12/20/2015 In active hydrocodone 7.5 mg-a cetaminophen 325 mg tablet RxNorm: 446591 1 Tablet(s) PO Q4-6H as needed for back pain 07/07/2014 09/04/2014 Inactive Synthroid 50 mcg tablet RxNorm: 012997 1 Tablet(s) PO daily TAKE ONE TABLET BY MOUTH EVERY DAY 07/07/2014 12/11/2014 Inactive Synthroid 50 mcg tablet RxNorm: 883895 TAKE ONE TABLET BY MOUTH EVERY DAY 06/06/2014 06/10/2014 In active Synthroid 50 mcg tablet RxNorm: 556722 TAKE ONE TABLET BY MOUTH EVERY DAY 06/06/2014 06/10/2014 In active Singulair 10 mg tablet RxNorm: 000217 Tablet(s) PO TAKE ONE TABLET BY MOUTH EV FCO03/03/2014 06/22/2015 Inactive hydrocodone 5 mg-kristofer taminophen 500 mg tablet RxNorm: 562894 Tablet(s) PO PRN 01/20/2014 07/06/2014 In active Synthroid 50 mcg tablet RxNorm: 291814 1 Tablet(s) PO daily name brand only 12/14/2013 12/13/2013 In active name brand only Synthroid 50 mcg tablet RxNorm: 337776 1 Tablet(s) PO daily name brand only 12/14/2013 06/05/2014 In active name brand only Januvia 50 mg tablet RxNorm: 044800 1 Tablet(s) PO daily 03/24/2013 05/25/2013 Inactive Singulair 10 mg tablet RxNorm: 849354 Tablet(s) PO TAKE ONE TABLET BY MOUTH FCO03/02/2013 03/02/2014 Inactive levothyroxine 50 mcg tablet RxNorm: 741832 1 Tablet(s) PO daily 02/03/2013 02/02/2013 Inactive levothyroxine 50 mcg tablet RxNorm: 843061 1 Tablet(s) PO daily 02/03/2013 10/18/2013 Inactive levothyroxine 25 mcg tablet RxNorm: 179177 1 /2 Tablet(s) PO daily 01/29/2013 02/02/2013 Inactive one and one half tab daily (1 /2)may zhang ve 90 day supply if cheaper levothyroxine 25 mcg tablet RxNorm: 916867 Tablet(s) PO TAKE 1 A ND 1/2 TABLETS ONCE DAILY 11/02/2012 05/25/2013 Inactive glipizide 5 mg tablet RxNorm: 318853 Tablet(s) PO TAKE ONE-HALF TABLET BY ADÁN TH EVERY DAY 10/19/2012 05/25/2013 Inactive metformin 500 mg tablet RxNorm: 355858 Tablet(s) PO TAKE ONE-HALF TABLET BY ADÁN TH TWICE A DAY 10/19/2012 05/25/2013 Inactive Voltaren 1 % Topical Gel RxNorm: 504165 4 Gram(s) TOP QID 10/01/2012 12/25/2015 Inactive levothyroxine 25 mcg tablet RxNorm: 594351 1 1/2 Tablet(s) PO daily 08/03/2012 01/28/2013 Inactive one and one half tab daily (1 2)may zhang ve 90 day supply if cheaper metformin 500 mg tablet RxNorm: 188633 1/2 Tablet(s) PO BID 03/03/2012 08/29/2012 Inactive glipizide 5 mg Tab RxNorm: 712493 1/2 Tablet(s) PO daily 03/03/2012 03/02/2012 Inactive metformin 500 mg Tab RxNorm: 638956 1/2 Tablet(s) PO BID 03/03/2012 03/02/2012 Inactive glipizide 5 mg tablet RxNorm: 489513 1/2 Tablet(s) PO daily 03/03/2012 08/29/2012 Inactive Singulair 10 mg tablet RxNorm: 957180 1 Tablet(s) PO daily 03/02/2012 03/01/2013 Inactive Bactrim DS 800 mg-16 0 mg Tab RxNorm: 888999 1 Tablet(s) PO BID 02/11/2012 02/20/2012 Inactive fluconazole 150 mg Tab RxNorm: 332439 1 Tablet(s) PO daily 02/11/2012 05/25/2013 Inactive levothyroxine 25 mcg tablet RxNorm: 953041 1 1/2 Tablet(s) PO daily 01/15/2012 07/12/2012 Inactive one and one half tab daily (1 1/2)may zhang ve 90 day supply if cheaper levothyroxine 100 mc g Tab RxNorm: 627579 1 Tablet(s) PO daily 09/04/2011 01/14/2012 Inactive Singulair 10 mg Tab RxNorm: 841780 1 Tablet(s) PO daily 09/04/2011 03/01/2012 Inactive zinc lozenges RxNorm: 1 PO QHS No Start Date Active Vitamin B-6 100 mg t ablet RxNorm: 181479 2 Tablet(s) PO QPM No Start Date Active Zinc Chelate 15 mg t ablet RxNorm: 1 Tablet(s) PO daily with 1 ,000 mg calcium No Start Date Active Vitamin D3 2,000 uni t tablet RxNorm: 470360 1 Tablet(s) PO QPM No Start Date Active Artificial Tears RxNorm: 542312 ophthalmic No Start Date Active pravastatin 20 mg ta blet RxNorm: 932958 1 Tablet(s) PO QHS No Start Date Active Nitrostat 0.4 mg Sub lingual Tab RxNorm: 071791 Tablet(s) SL PRN No Start Date Active Vitamin C 100 mg tablet RxNorm: 512622 1 Tablet(s) PO QHS No Start Date Active Fish Oil 360 mg-1,20 0 mg capsule RxNorm: 589759 1 Capsule(s) PO daily No Start Date Active latanoprost 0.005 % eye drops RxNorm: 803861 1 Drop(s) OPH each ey e QHS No Start Date Active Vitamin B-12 1,000 m cg tablet RxNorm: 240106 1 Tablet(s) PO daily No Start Date Active Etta Saline nasal RxNorm: 9863 nasal No Start Date Active Flintstones Complete oral RxNorm: oral No Start D ate Active aspirin 81 mg Tab, D elayed Release RxNorm: 755813 1 Tablet(s) PO daily No Start Date Active vitamin D3-menaquino ne 7 Oral RxNorm: Oral No Start D ate 12/26/2015 Inactive vitamin B6-vitamin E -magnesium Tab RxNorm: 1 Tablet(s) PO daily No Start Date 12/26/2015 Inactive Zinc Chelate 15 mg t ablet RxNorm: 1 Tablet(s) PO daily with 4 00 mg Magnesium No Start Date 10/23/2016 Inactive pravastatin 20 mg ta blet RxNorm: 573670 1 Tablet(s) PO daily No Start Date 01/19/2014 Inactive Zocor 20 mg Tab RxNorm: 612710 1 Tablet(s) PO QHS No Start Date 05/25/2013 Inactive Plavix 75 mg tablet RxNorm: 363216 1 Tablet(s) PO daily No Start Date 03/28/2015 Inactive metoprolol succinate ER 100 mg tablet,extended release 24 hr RxNorm: 895655 1 Tablet(s) PO daily No Start Date 07/23/2016 Inactive Januvia 100 mg Tab RxNorm: 333929 1 Tablet(s) PO daily No Start Date 05/25/2013 Inactive tramadol 50 mg tablet RxNorm: 519496 1 Tablet(s) PO as needed No Start Date 08/20/2016 Inactive Flintstones Complete Oral RxNorm: Oral No Start D ate 12/26/2015 Inactive Plavix 75 mg Tab RxNorm: 926978 1 Tablet(s) PO every other day No Start Date 05/25/2013 Inactive Accu-Chek Compact Te st strips RxNorm: 1 test Miscellaneous BID No Start Date 10/22/2016 Inactive accu-chek compact plus Accu-Chek Softclix L ancets RxNorm: 1 test Miscellaneous daily No Start Date 10/22/2016 Inactive Fish Oil 1,000 mg Cap RxNorm: 1 Capsule(s) PO daily No Start Date 12/26/2015 Inactive Januvia 50 mg tablet RxNorm: 307247 Tablet(s) PO No Start Date 03/23/2013 Inactive hydrocodone 5 mg-kristofer taminophen 500 mg tablet RxNorm: 013579 Tablet(s) PO PRN No Start Date 01/19/2014 Inactive Synthroid 50 mcg tablet RxNorm: 579991 1 Tablet(s) PO daily name brand only No Start Date 12/13/2013 Inactive name brand only levothyroxine 25 mcg Tab RxNorm: 115061 1 Tablet(s) PO daily 1 tab q morning on empty stomach No Start Date 01/13/2012 Inactive metoprolol succinate ER 50 mg 24 hr Tab RxNorm: 357841 1 Tablet(s) PO daily No Start Date 12/25/2015 Inactive pravastatin 40 mg ta blet RxNorm: 827016 Tablet(s) PO No Start Date 12/25/2015 Inactive latanoprost Opht RxNorm: Ophthalmic No Start Date 12/26/2015 Inactive cranberry Oral RxNorm: Oral No Start Date 06/22/2015 Inactive Medication Administered Medication Codes Instruc tions Start Date Status Kenalog 40 mg/mL suspension for injection RxNorm: 2705805 Milliliter 09/03/2016 No longer Active Kenalog 40 mg/mL suspension for injection RxNorm: 8915560 1Milliliter 03/28/2015 N o longer Active Immunizations Vaccine Codes Date Status PPD Unknown 06/23/2015 completed Influenza CVX: 141 10/19 completed Assessments Condition Codes Effectiv e Dates Atrophy of thyroid (acquired) ICD-10 : E03.4 [...] elsewhere classified ICD-10: M46.1 ICD-9: 720.2 03/06/2017 Rash and other nonspecific skin eruption ICD-10: R21 ICD-9: 782.1 03/04/2017 Encounter for general adult medical exam ination [...] Reason For Visit Effective Dates Notes hypertension 04/21/2019 sore throat 02/17/2019 diabetic foot [...] Ord30 C/HDL 3.5 Ratio 12/30/2018 Free T4 Bik645 FREE T4 0.64 ng/dL 12/30/2018 %Hba1C Nmj114 % HbA1c 75779-7 6.9 % 12/30/2018 %Hba1C Uka720 Gluc Ave 151 mg/dL 12/30/2018 Comp Metabolic Fdx768 NA 140 mEq/L 12/30/2018 Comp Metabolic Gxk635 K 4.5 mEq/L 12/30/2018 Comp Metabolic Utp564 CL 107 mEq/L 12/30/2018 Comp Metabolic Clw476 CO2 25.0 mEq/L 12/30/2018 Comp Metabolic Xwc992 AN ION GAP 13 12/30/2018 Comp Metabolic Nka668 GL UCOSE 117 mg/dL 12/30/2018 Comp Metabolic Tek738 Cr eat 0.8 mg/dL 12/30/2018 Comp Metabolic Sys041 eG FR 79 ml/min/1.73m2 12/30 Comp Metabolic Cmx670 BUN 17 mg/dL 12/30/2018 Comp Metabolic Apy257 B/ C Ratio 22.4 Ratio 12/30/2018 Comp Metabolic Xjx066 CA LCIUM 9.6 mg/dL 12/30/2018 Comp Metabolic Wvo479 AL K PHOS 69 U/L 12/30/2018 Comp Metabolic Cgb931 T(SGOT) 23 U/L 12/30/2018 Comp Metabolic Xss154 AL T(SGPT) 30 U/L 12/30/2018 Comp Metabolic Mxu556 BI LI T 0.4 mg/dL 12/30/2018 Comp Metabolic Edk942 AL BUMIN 4.2 g/dL 12/30/2018 Comp Metabolic Mxp927 TP RO 6.6 g/dL 12/30/2018 Comp Metabolic Aiv739 GL OB 2.4 g/dL 12/30/2018 Comp Metabolic Hrd328 A/ G Ratio 1.8 Ratio 12/30/2018 Comp Metabolic Ija561 Os mo 282 mOsmo 12/30/2018 Tsh Ord6 [...] 31.0 pg 12/30/2018 Cbc With Differential Ord2 Lynn% 8.1 % 12/30/2018 Cbc With Differential Ord2 [...] 1.83 K/ul 12/30/2018 Cbc With Differential Ord2 Lynn ABS# 0.5 K/ul 12/30/2018 Cbc With Differential Ord2 Eos ABS# 0.1 K/ul 12/30/2018 Cbc With Differential Ord2 Baso ABS# 0.0 K/ul 12/30/2018 Comp Metabolic Yiu814 NA 138 mEq/L 02/24/2018 Comp Metabolic Qrd358 K 4.3 mEq/L 02/24/2018 Comp Metabolic Hga248 CL 103 mEq/L 02/24/2018 Comp Metabolic Rwi504 CO2 27.0 mEq/L 02/24/2018 Comp Metabolic Occ276 AN ION GAP 12 02/24/2018 Comp Metabolic Wor817 GL UCOSE 96 mg/dL 02/24/2018 Comp Metabolic Ygr002 Cr eat 0.7 mg/dL 02/24/2018 Comp Metabolic Nee946 eG FR 86 ml/min/1.73m2 02/24 Comp Metabolic Riu847 BUN 17 mg/dL 02/24/2018 Comp Metabolic Ncx762 B/ C Ratio 23.9 Ratio 02/24/2018 Comp Metabolic Rhr911 CA LCIUM 9.2 mg/dL 02/24/2018 Comp Metabolic Fqr299 AL K PHOS 67 U/L 02/24/2018 Comp Metabolic Guf153 T(SGOT) 25 U/L 02/24/2018 Comp Metabolic Ehn375 AL T(SGPT) 25 U/L 02/24/2018 Comp Metabolic Eea869 BI LI T 0.3 mg/dL 02/24/2018 Comp Metabolic Cto783 AL BUMIN 3.9 g/dL 02/24/2018 Comp Metabolic Bfn144 TP RO 6.5 g/dL 02/24/2018 Comp Metabolic Qfp835 GL OB 2.6 g/dL 02/24/2018 Comp Metabolic Bct134 A/ G Ratio 1.5 Ratio 02/24/2018 Comp Metabolic Oco633 Os mo 277 mOsmo 02/24/2018 Free T4 Vxi182 FREE T4 0.71 ng/dL 02/24/2018 Tsh Ord6 TSH (3rd IS) 2.53 uIU/mL 02/24/2018 B12 Jhd496 B12 360.00 pg/ml 02/24/2018 Cbc With Differential [...] 30.4 pg 02/24/2018 Cbc With Differential Ord2 Lynn% 11.3 % 02/24/2018 Cbc With Differential Ord2 [...] 2.18 K/ul 02/24/2018 Cbc With Differential Ord2 Lynn ABS# 0.8 K/ul 02/24/2018 Cbc With Differential Ord2 Eos ABS# 0.2 K/ul 02/24/2018 Cbc With Differential Ord2 Baso ABS# 0.0 K/ul 02/24/2018 %Hba1C Jwk798 % HbA1c 63683-0 6.5 % 02/24/2018 %Hba1C Slz202 Gluc Ave 140 mg/dL 02/24/2018 Tsh Ord6 hTSH II 3.98 uIU/mL 11/03/2017 Comp Metabolic Rce015 NA 139 mEq/L 11/03/2017 Comp Metabolic Rwd445 K 4.1 mEq/L 11/03/2017 Comp Metabolic Nha118 CL 102 mEq/L 11/03/2017 Comp Metabolic Hlu187 CO2 28.0 mEq/L 11/03/2017 Comp Metabolic Lzf457 AN ION GAP 13 11/03/2017 Comp Metabolic Jgi986 GL UCOSE 96 mg/dL 11/03/2017 Comp Metabolic Uvg892 Cr eat 0.8 mg/dL 11/03/2017 Comp Metabolic Qlg753 eG FR 80 ml/min/1.73m2 11/03 Comp Metabolic Rmq997 BUN 16 mg/dL 11/03/2017 Comp Metabolic Xdu622 B/ C Ratio 21.3 Ratio 11/03/2017 Comp Metabolic Djy712 CA LCIUM 9.5 mg/dL 11/03/2017 Comp Metabolic Feh737 AL K PHOS 73 U/L 11/03/2017 Comp Metabolic Qmg239 T(SGOT) 26 U/L 11/03/2017 Comp Metabolic Nfv777 AL T(SGPT) 22 U/L 11/03/2017 Comp Metabolic Wik833 BI LI T 0.4 mg/dL 11/03/2017 Comp Metabolic Bwf396 AL BUMIN 4.1 g/dL 11/03/2017 Comp Metabolic Fmb843 TP RO 6.3 g/dL 11/03/2017 Comp Metabolic Mhi015 GL OB 2.2 g/dL 11/03/2017 Comp Metabolic Vpn099 A/ G Ratio 1.9 Ratio 11/03/2017 Comp Metabolic Wyh273 Os mo 279 mOsmo 11/03/2017 Cbc With [...] 29.8 pg 11/03/2017 Cbc With Differential Ord2 Lynn% 10.4 % 11/03/2017 Cbc With Differential Ord2 [...] 2.18 K/ul 11/03/2017 Cbc With Differential Ord2 Lynn ABS# 0.7 K/ul 11/03/2017 Cbc With Differential Ord2 Eos ABS# 0.1 K/ul 11/03/2017 Cbc With Differential Ord2 Baso ABS# 0.0 K/ul 11/03/2017 Free T4 Ygo409 FREE T4 0.75 ng/dL 11/03/2017 %Hba1C Ejv083 % HbA1c 41928-3 6.4 % 11/03/2017 %Hba1C Jsu570 Gluc Ave 137 mg/dL 11/03/2017 Tsh Ord6 hTSH II 1.77 uIU/mL 03/04/2017 Lipid Ord30 CHOL 125 mg/dL 03/04/2017 Lipid Ord30 HDL 38.0 mg/dl 03/04/2017 Lipid Ord30 TRIG 144 mg/dL 03/04/2017 Lipid Ord30 LDL 58 mg/dL 03/04/2017 Lipid Ord30 C/HDL 3.3 Ratio 03/04/2017 Microalbumin Loi188 Micr oAlb <0.7 mg/dL 03/04/2017 Comp Metabolic Dxu091 NA 139 mEq/L 03/04/2017 Comp Metabolic Kif391 K 4.4 mEq/L 03/04/2017 Comp Metabolic Ups930 CL 104 mEq/L 03/04/2017 Comp Metabolic Ixu377 CO2 27.0 mEq/L 03/04/2017 Comp Metabolic Bew102 AN ION GAP 12 03/04/2017 Comp Metabolic Xan101 GL UCOSE 95 mg/dL 03/04/2017 Comp Metabolic Wrn140 Cr eat 0.8 mg/dL 03/04/2017 Comp Metabolic Iyk218 eG FR 79 ml/min/1.73m2 03/04 Comp Metabolic Otr665 BUN 13 mg/dL 03/04/2017 Comp Metabolic Wek730 B/ C Ratio 17.1 Ratio 03/04/2017 Comp Metabolic Peq872 CA LCIUM 9.2 mg/dL 03/04/2017 Comp Metabolic Gth986 AL K PHOS 62 U/L 03/04/2017 Comp Metabolic Mnu748 T(SGOT) 22 U/L 03/04/2017 Comp Metabolic Wmy789 AL T(SGPT) 22 U/L 03/04/2017 Comp Metabolic Ipv446 BI LI T 0.5 mg/dL 03/04/2017 Comp Metabolic Wik554 AL BUMIN 3.8 g/dL 03/04/2017 Comp Metabolic Qxo841 TP RO 6.2 g/dL 03/04/2017 Comp Metabolic Fom417 GL OB 2.4 g/dL 03/04/2017 Comp Metabolic Unq227 A/ G Ratio 1.6 Ratio 03/04/2017 Comp Metabolic Jib419 Os mo 277 mOsmo 03/04/2017 %Hba1C Hqc794 % HbA1c 49394-7 6.2 % 03/04/2017 %Hba1C Qqe862 Gluc Ave 131 mg/dL 03/04/2017 Cbc With [...] 30.6 pg 03/04/2017 Cbc With Differential Ord2 Lynn% 9.6 % 03/04/2017 Cbc With Differential Ord2 [...] 1.84 K/ul 03/04/2017 Cbc With Differential Ord2 Lynn ABS# 0.6 K/ul 03/04/2017 Cbc With Differential Ord2 Eos ABS# 0.1 K/ul 03/04/2017 Cbc With Differential Ord2 Baso ABS# 0.0 K/ul 03/04/2017 B12 Xmx884 B12 440.00 pg/ml 10/04/2016 Free T4 Xrr148 FREE T4 0.77 ng/dL 10/04/2016 Cbc With [...] 30.6 pg 10/04/2016 Cbc With Differential Ord2 Lynn% 8.0 % 10/04/2016 Cbc With Differential Ord2 [...] 2.77 K/ul 10/04/2016 Cbc With Differential Ord2 Lynn ABS# 0.7 K/ul 10/04/2016 Cbc With Differential Ord2 Eos ABS# 0.1 K/ul 10/04/2016 Cbc With Differential Ord2 Baso ABS# 0.0 K/ul 10/04/2016 Comp Metabolic Wxk121 NA 136 mEq/L 10/04/2016 Comp Metabolic Qof596 K 4.0 mEq/L 10/04/2016 Comp Metabolic Ivg693 CL 100 mEq/L 10/04/2016 Comp Metabolic Qhj756 CO2 29.0 mEq/L 10/04/2016 Comp Metabolic Yxa097 AN ION GAP 11 10/04/2016 Comp Metabolic Lay140 GL UCOSE 92 mg/dL 10/04/2016 Comp Metabolic Mqb833 Cr eat 0.7 mg/dL 10/04/2016 Comp Metabolic Rhz278 eG FR 85 ml/min/1.73m2 10/04 Comp Metabolic Ocz731 BUN 17 mg/dL 10/04/2016 Comp Metabolic Mee652 B/ C Ratio 23.6 Ratio 10/04/2016 Comp Metabolic Lrc733 CA LCIUM 9.7 mg/dL 10/04/2016 Comp Metabolic Adz206 AL K PHOS 86 U/L 10/04/2016 Comp Metabolic Ovp334 T(SGOT) 23 U/L 10/04/2016 Comp Metabolic Bcp882 AL T(SGPT) 27 U/L 10/04/2016 Comp Metabolic Dks034 BI LI T 0.3 mg/dL 10/04/2016 Comp Metabolic Dkk414 AL BUMIN 4.3 g/dL 10/04/2016 Comp Metabolic Isd098 TP RO 6.9 g/dL 10/04/2016 Comp Metabolic Aeu016 GL OB 2.6 g/dL 10/04/2016 Comp Metabolic Xdr806 A/ G Ratio 1.6 Ratio 10/04/2016 Comp Metabolic Qso805 Os mo 273 mOsmo 10/04/2016 Tsh Ord6 hTSH II 3.75 uIU/mL 10/04/2016 Free T4 Xik893 FREE T4 0.68 ng/dL 05/17/2016 Tsh Ord6 hTSH II 3.31 uIU/mL 05/17/2016 Alyssa Reflex Profile [id number] ALYSSA (MARCELLA) SCREEN NONE DETECTED 016 Tsh Ord6 hTSH II 6.78 uIU/mL 12/22/2015 C-Reactive Protein Qnt Crqnt CRP 0.2 mg/dl 12/22/2015 Sed Rate Ord21 ESR 15 mm/hr 12/22/2015 Free T4 Ugd105 FREE T4 0.70 ng/dL 12/22/2015 Comp Metabolic Onf999 NA 138 mEq/L 12/22/2015 Comp Metabolic Wjz096 K 4.3 mEq/L 12/22/2015 Comp Metabolic Pan643 CL 102 mEq/L 12/22/2015 Comp Metabolic Crc857 CO2 28.0 mEq/L 12/22/2015 Comp Metabolic Uyx940 AN ION GAP 12 12/22/2015 Comp Metabolic Qpk545 GL UCOSE 114 mg/dL 12/22/2015 Comp Metabolic Yho342 Cr eat 0.8 mg/dL 12/22/2015 Comp Metabolic Yry838 eG FR 80 ml/min/1.73m2 12/22 Comp Metabolic Brb407 BUN 18 mg/dL 12/22/2015 Comp Metabolic Wwj794 B/ C Ratio 23.7 Ratio 12/22/2015 Comp Metabolic Wou187 CA LCIUM 9.4 mg/dL 12/22/2015 Comp Metabolic Mze883 AL K PHOS 75 U/L 12/22/2015 Comp Metabolic Dvq285 T(SGOT) 19 U/L 12/22/2015 Comp Metabolic Jpr168 AL T(SGPT) 20 U/L 12/22/2015 Comp Metabolic Pli985 BI LI T 0.5 mg/dL 12/22/2015 Comp Metabolic Okw595 AL BUMIN 3.9 g/dL 12/22/2015 Comp Metabolic Ksa690 TP RO 6.2 g/dL 12/22/2015 Comp Metabolic Vcp953 GL OB 2.3 g/dL 12/22/2015 Comp Metabolic Vqa956 A/ G Ratio 1.7 Ratio 12/22/2015 Comp Metabolic Zkd777 Os mo 278 mOsmo 12/22/2015 Ra Factor Uce965 RA FACT OR <10 IU/ml 12/22/2015 Lipid Ord30 CHOL 150 mg/dL 12/22/2015 Lipid Ord30 HDL 49.0 mg/dl 12/22/2015 Lipid Ord30 TRIG 108 mg/dL 12/22/2015 Lipid Ord30 LDL 79 mg/dL 12/22/2015 Lipid Ord30 C/HDL 3.1 Ratio 12/22/2015 %Hba1C Fyf935 % HbA1c 24484-5 6.2 % 12/22/2015 %Hba1C Sec369 Gluc Ave 131 mg/dL 12/22/2015 Cbc With [...] 30.0 pg 12/22/2015 Cbc With Differential Ord2 Lynn% 7.5 % 12/22/2015 Cbc With Differential Ord2 [...] 2.06 K/ul 12/22/2015 Cbc With Differential Ord2 Lynn ABS# 0.4 K/ul 12/22/2015 Cbc With Differential [...] Ord2 RDW 14.2 % 06/21/2015 Comp Metabolic Lrj647 NA 135 mEq/L 06/21/2015 Comp Metabolic Mqw943 K 4.2 mEq/L 06/21/2015 Comp Metabolic Sfe852 CL 99 mEq/L 06/21/2015 Comp Metabolic Qkl271 CO2 27.0 mEq/L 06/21/2015 Comp Metabolic Yqr964 AN ION GAP 13 06/21/2015 Comp Metabolic Oor023 GL UCOSE 94 mg/dL 06/21/2015 Comp Metabolic Mbh755 Cr eat 0.8 mg/dL 06/21/2015 Comp Metabolic Iwg662 eG FR 81 ml/min/1.73m2 06/21 Comp Metabolic Zbf483 BUN 16 mg/dL 06/21/2015 Comp Metabolic Zjw373 B/ C Ratio 21.3 Ratio 06/21/2015 Comp Metabolic Qba773 CA LCIUM 9.4 mg/dL 06/21/2015 Comp Metabolic Yny072 AL K PHOS 164 U/L 06/21/2015 Comp Metabolic Ycj859 T(SGOT) 22 U/L 06/21/2015 Comp Metabolic Fcp338 AL T(SGPT) 23 U/L 06/21/2015 Comp Metabolic Iup253 BI LI T 0.4 mg/dL 06/21/2015 Comp Metabolic Rkj392 AL BUMIN 4.0 g/dL 06/21/2015 Comp Metabolic Tcq908 TP RO 6.6 g/dL 06/21/2015 Comp Metabolic Nqu779 GL OB 2.6 g/dL 06/21/2015 Comp Metabolic Oxa651 A/ G Ratio 1.5 Ratio 06/21/2015 Comp Metabolic Vwl041 Os mo 271 mOsmo 06/21/2015 URINALYSIS NONAUTO W/O SCOPE 58585 Specific [place] 1.010 DateTime(Free Text in ) URINALYSIS NONAUTO W/O SCOPE 38148 PH 6.0 DateTime(Free [place] t in ) URINALYSIS NONAUTO W/O SCOPE 46236 GLUCOSE NEG DateTime(Free [place] t in ) URINALYSIS NONAUTO W/O SCOPE 64201 Protein NEG DateTime(Free [place] t in Apr) URINALYSIS NONAUTO W/O SCOPE 23723 Blood TRACE DateTime(Free T ext in ) URINALYSIS NONAUTO W/O SCOPE 63537 Bilirubin NEG DateTime(Free [place] t in Apr) URINALYSIS NONAUTO W/O SCOPE 47666 Ketones NEG DateTime(Free Te xt in ) URINALYSIS NONAUTO W/O SCOPE 40722 Urobilinogen NEG DateTime(Free Text in Aprima) URINALYSIS NONAUTO W/O SCOPE 42108 Nitrite NEG DateTime(Free [place] t in Aprima) URINALYSIS NONAUTO W/O SCOPE 25226 Leukocytes NEG DateTime(Free Text in Aprima) UA 72402 Specific [place] 1.020 DateTime(Free Text in Apr ) UA 71859 PH 5.0 DateTime(Free Text in Aprima ) UA 08532 Protein neg DateTime(Free Text in Aprima ) UA 31996 Blood neg DateTime(Free Text in Aprima ) UA 97499 Bilirubin neg DateTime(Free Text in Aprima ) UA 29285 Ketones neg DateTime(Free Text in Aprima ) UA 19605 Urobilinogen 0.2 DateTime(Free Text in ) UA 81036 Nitrite neg DateTime(Free Text in ) UA 52465 Leukocytes neg DateTime(Free Text in ) Review of Systems System Result Effective Dates Constitutional No recent illness 04/21/2019 Constitutional No [...] 04/21/2019 Neurologic paresthesia 0 04/21/2019 Psychiatric anxiety 060 03/2019 Psychiatric depression 0 04/21/2019 Endocrine diabetes [...] intact 05/25/2013 None Full Exam - General 1995 Psychiatric orientation/consciousness Overall: oriented to person, place and time 05/25/2013 None Full Exam - General 1995 [...] accomodation 01/14/2012 None Procedures Procedure Codes Date PPPS, SUBSEQ VISIT CPT- 4: G0439 11/04/2016 TRIAMCINOLONE ACET [place] NOS CPT-4: J3301 09/03/2016 URINALYSIS NONAUTO W /O SCOPE CPT-4: 22508 06/23/2015 TRIAM[place]INOLONE ACET [place] NOS CPT-4: J3301 03/28/2015 FOOT EXAM PERFORMED SNOMED CT: 01907432 CPT-4: 2028F 12/20/2013 PRESCRIP TRANSMIT A ERX SY CPT-4: G8553 10/25/2013 PRESCRIP TRANSMIT A ERX SY CPT-4: G8553 10/01/2012 URINALYSIS NONAUTO W /O SCOPE CPT-4: 03399 02/11/2012 PRESCRIP TRANSMIT A ERX SY CPT-4: G8553 02/11/2012 Vital Signs Date Vital 04/21/2019 Blood Pressure 1: 150/72 Code: 8480-6 BMI: 34.9 Code: 45926-9 Heart Rate 1: 81 bpm Height: 5'3" SpO2: 98% Weight: 197 lbs 02/17/2019 Blood Pressure 1: 140/72 Code: 8480-6 Heart Rate 1: 82 bpm Height: SpO2: 97% Temperature: 36.8 (C ) / 98.2 (F) Weight: 08/27/2018 Blood Pressure 1: 150/72 Code: 8480-6 BMI: 33.8 Code: 36561-8 Heart Rate 1: 77 bpm Height: 5'3" SpO2: 98% Weight: 191 lbs 02/24/2018 Blood Pressure 1: 140/72 Code: 8480-6 BMI: 33.5 Code: 28434-9 Heart Rate 1: 78 bpm Height: 5'3" SpO2: 98% Weight: 189 lbs 11/03/2017 Blood Pressure 1: 140/72 Code: 8480-6 BMI: 33.2 Code: 01714-2 Heart Rate 1: 71 bpm Height: 5'3" SpO2: 98% Weight: 187 lbs 8 oz 08/08/2017 Blood Pressure 1: 140/66 Code: 8480-6 BMI: 33.1 Code: 37061-7 Heart Rate 1: 73 bpm Height: 5'3" SpO2: 97% Weight: 187 lbs 07/10/2017 Blood Pressure 1: 144/74 Code: 8480-6 BMI: 33.5 Code: 27894-8 Heart Rate 1: 78 bpm Height: 5'3" SpO2: 94% Weight: 189 lbs 03/06/2017 Blood Pressure 1: 140/86 Code: 8480-6 BMI: 32.9 Code: 19006-4 Heart Rate 1: 68 bpm Height: 5'3" SpO2: 98% Weight: 186 lbs 03/04/2017 Blood Pressure 1: 136/82 Code: 8480-6 Heart Rate 1: 61 bpm Height: 5'3" SpO2: 97% Temperature: 36.6 (C ) / 97.8 (F) Weight: 11/04/2016 Blood Pressure 1: 146/76 Code: 8480-6 BMI: 34.7 Code: 49766-8 Heart Rate 1: 70 bpm Height: 5'3" SpO2: 97% Waist Measure (cm): 107 cm Weight: 196 lbs 10/23/2016 Blood Pressure 1: 14878 Code: 8480-6 BMI: 34.7 Code: 83253-2 Heart Rate 1: 68 bpm Height: 5'3" SpO2: 97% Weight: 196 lbs 10/03/2016 Blood Pressure 1: 14278 Code: 8480-6 BMI: 34.7 Code: 27870-8 Heart Rate 1: 72 bpm Height: 5'3" SpO2: 98% Weight: 196 lbs 09/03/2016 Blood Pressure 1: 128/88 Code: 8480-6 Heart Rate 1: 86 bpm SpO2: 96% 08/21/2016 Blood Pressure 1: 128/62 Code: 8480-6 BMI: 35.1 Code: 65805-9 Heart Rate 1: 80 bpm Height: 5'3" SpO2: 98% Weight: 198 lbs 07/24/2016 Blood Pressure 1: 150/86 Code: 8480-6 BMI: 34.4 Code: 92636-2 Heart Rate 1: 72 bpm Height: 5'3" SpO2: 97% Weight: 194 lbs 04/24/2016 Blood Pressure 1: 138/76 Code: 8480-6 BMI: 34.2 Code: 88376-5 Heart Rate 1: 71 bpm Height: 5'3" SpO2: 98% Weight: 193 lbs 01/18/2016 Blood Pressure 1: 140/72 Code: 8480-6 BMI: 33.4 Code: 74237-5 Heart Rate 1: 69 bpm Height: 5'3" SpO2: 98% Weight: 188 lbs 8 oz 12/21/2015 Blood Pressure 1: 158/78 Code: 8480-6 BMI: 33.3 Code: 82654-8 Heart Rate 1: 66 bpm Height: 5'3" SpO2: 98% Weight: 188 lbs 08/17/2015 Blood Pressure 1: 132/76 Code: 8480-6 BMI: 30.5 Code: 00049-3 Heart Rate 1: 66 bpm Height: 5'3" Respiratory Rate: 18 bpm SpO2: 97% Weight: 172 lbs 06/23/2015 Blood Pressure 1: 160/80 Code: 8480-6 Blood Pressure 2: 170/86 Code: 8480-6 BMI: 28.3 Code: 83573-9 Heart Rate 1: 96 bpm Height: 5'3" SpO2: 98% Temperature: 37.3 (C ) / 99.1 (F) Weight: 160 lbs 06/21/2015 Blood Pressure 1: 132/78 Code: 8480-6 Heart Rate 1: 106 bpm SpO2: 98% Temperature: 37.3 (C ) / 99.2 (F) Weight: 166 lbs 03/28/2015 Blood Pressure 1: 160/84 Code: 8480-6 Blood Pressure 2: 138/78 Code: 8480-6 BMI: 32.1 Code: 93764-0 Heart Rate 1: 86 bpm Height: 5'3" SpO2: 97% Weight: 181 lbs 07/07/2014 Blood Pressure 1: 138/82 Code: 8480-6 BMI: 32.6 Code: 74852-9 Heart Rate 1: 82 bpm Height: 5'3" SpO2: 96% Weight: 184 lbs 03/24/2014 Blood Pressure 1: 138/64 Code: 8480-6 BMI: 32.4 Code: 01321-2 Heart Rate 1: 72 bpm Height: 5'3" Weight: 183 lbs 01/20/2014 Blood Pressure 1: 149/69 Code: 8480-6 Blood Pressure 2: 170/82 Code: 8480-6 Heart Rate 1: 81 bpm Weight: 183 lbs 12/20/2013 Blood Pressure 1: 150/78 Code: 8480-6 BMI: 32.6 Code: 09229-4 Heart Rate 1: 76 bpm Height: 5'3" Weight: 184 lbs 10/25/2013 Blood Pressure 1: 167/80 Code: 8480-6 BMI: 33.3 Code: 56360-9 Heart Rate 1: 60 bpm Height: 5'3" Weight: 188 lbs 10/19/2013 Blood Pressure 1: 136/78 Code: 8480-6 BMI: 33.1 Code: 22441-3 Height: 5'3" Weight: 187 lbs 05/25/2013 Blood Pressure 1: 134/82 Code: 8480-6 BMI: 33.5 Code: 00356-0 Heart Rate 1: 80 bpm Height: 5'3" Weight: 189 lbs 02/18/2013 Blood Pressure 1: 158/88 Code: 8480-6 Blood Pressure 2: 158/90 Code: 8480-6 BMI: 33.7 Code: 75988-4 Heart Rate 1: 80 bpm Height: 5'3" Weight: 190 lbs 10/01/2012 Blood Pressure 1: 138/62 Code: 8480-6 Heart Rate 1: 76 bpm Weight: 184 lbs 05/18/2012 Blood Pressure 1: 150/82 Code: 8480-6 Blood Pressure 2: 136/84 Code: 8480-6 BMI: 32.1 Code: 89120-2 Heart Rate 1: 71 bpm Height: 5'3" SpO2: 98% Weight: 181 lbs 02/11/2012 Blood Pressure 1: 126/56 Code: 8480-6 Heart Rate 1: 68 bpm Respiratory Rate: 16 bpm Weight: 184 lbs 01/14/2012 Blood Pressure 1: 158/80 Code: 8480-6 BMI: 33.9 Code: 63998-2 Heart Rate 1: 60 bpm Height: 5'3" Respiratory Rate: 16 bpm Weight: 191 lbs 8 oz Functional Status No Functional Status data History of Present Illness Symptom Name Status Resu lt Effective Date Notes Quality primary hypert ension 04/21/2019 None Onset [...] readings at home 02/11/2012 None hypothyroid 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 P ATIENT, LEVEL IV Diagnosis: Essential (primary) hypertension[ICD10: I10] Diagnosis: Type 2 diabetes mellitus without complications[ICD10: E11.9] Diagnosis: Atrophy of thyroid (acquired)[ICD10: E03.4] Diagnosis: Mixed hyperlipidemia[ICD10: E78.2] Carmelina Ott MD, [facility] CPT- 4: 10838 04/21/2019 20829 EST. PATIENT, LEVEL III Diagnosis: Acute laryngopharyngitis[ICD10: J06.0] Diagnosis: Other allergic rhinitis[ICD10: J30.89] Luz Ott MD, [facility] CPT-4: 46747 02/17/2019 ([id number]) 10644 EST. P ATIENT, LEVEL IV Diagnosis: Type 2 diabetes mellitus with diabetic polyneuropathy[ICD10: E11.42] Diagnosis: Pain in left leg[ICD10: M79.605] Diagnosis: Pain in right leg[ICD10: M79.604] Carmelina Ott MD, [facility] CPT-4: 29123 08/27/2018 ([id number]) Miscellaneou s no charge Diagnosis: Other fatigue[ICD10: R53.83] Carmelina Ott MD, [facility] CPT-4: 70048 06/17/2018 ([id number]) 19345 EST. P ATIENT, LEVEL IV Diagnosis: Essential (primary) hypertension[ICD10: I10] Diagnosis: Hypothyroidism, unspecified[ICD10: E03.9] Diagnosis: Type 2 diabetes mellitus without complications[ICD10: E11.9] Diagnosis: Chronic pain syndrome[ICD10: G89.4] Diagnosis: Vitamin B12 deficiency anemia, unspecified[ICD10: D51.9] Diagnosis: Unsteadiness on feet[ICD10: R26.81] Nicki Ott MD, [facility] CPT-4: 65656 02/24/2018 ([id number]) 93378 EST. P ATIENT, LEVEL IV Diagnosis: Type 2 diabetes mellitus without complications[ICD10: E11.9] Diagnosis: Hypothyroidism, unspecified[ICD10: E03.9] Diagnosis: Essential (primary) hypertension[ICD10: I10] Diagnosis: Pain in left shoulder[ICD10: M25.512] Nicki Ott MD, [facility] CPT-4: 80693 11/03/2017 ([id number] 21415 EST. P ATIENT, LEVEL III Diagnosis: Essential (primary) hypertension[ICD10: I10] Diagnosis: Major depressive disorder, recurrent, mild[ICD10: F33.0] Diagnosis: Other allergic rhinitis[ICD10: J30.89] Nicki Ott MD, [facility] CPT-4: 71125 08/08/2017 ([id number]) 93836 EST. P ATIENT, LEVEL IV Diagnosis: Hypothyroidism, unspecified[ICD10: E03.9] Diagnosis: Major depressive disorder, recurrent, mild[ICD10: F33.0] Diagnosis: Myalgia[ICD10: M79.1] Diagnosis: Chronic pain syndrome[ICD10: G89.4] Diagnosis: Essential (primary) hypertension[ICD10: I10] Nicki Ott MD, [facility] CPT-4: 78765 07/10/2017 ([id number]) 85736 EST. P ATIENT, LEVEL IV Diagnosis: Essential (primary) hypertension[ICD10: I10] Diagnosis: Atrophy of thyroid (acquired)[ICD10: E03.4] Diagnosis: Sacroiliitis, not elsewhere classified[ICD10: M46.1] Diagnosis: Mixed hyperlipidemia[ICD10: E78.2] Carmelina Ott MD, [facility] CPT- 4: 84443 03/06/2017 ([id number]) 67650 EST. P ATIENT, LEVEL II Diagnosis: Rash and other nonspecific skin eruption[ICD10: R21] Nicki Ott MD, [facility] CPT-4: 07632 03/04/2017 ([id number]) 02329 EST. P ATIENT, LEVEL IV Diagnosis: Type 2 diabetes mellitus without complications[ICD10: E11.9] Diagnosis: Essential (primary) hypertension[ICD10: I10] Diagnosis: Atrophy of thyroid (acquired)[ICD10: E03.4] Carmelina Ott MD, [facility] CPT-4: 26378 10/23/2016 52756 EST. PATIENT, LEVEL III Diagnosis: Other specified hypothyroidism[ICD10: E03.8] Diagnosis: Other specified anemias[ICD10: D64.89] Diagnosis: Pain in thoracic spine[ICD10: M54.6] Luz Ott MD, [facility] CPT- 4: 33519 10/03/2016 12405 EST. PATIENT, LEVEL II Diagnosis: Insect bite (nonvenomous) of other part of head, initial encounter[ICD10: S00.86XA] Nicki Ott MD, [facility] CPT-4: 18952 09/03/2016 ([id number]) 57715 EST. P ATIENT, LEVEL IV Diagnosis: Type 2 diabetes mellitus without complications[ICD10: E11.9] Diagnosis: Hypothyroidism, unspecified[ICD10: E03.9] Diagnosis: Essential (primary) hypertension[ICD10: I10] Carmelina Ott MD, C CPT-4: 22057 08/21/2016 ([id number]) 16876 EST. P ATIENT, LEVEL IV Diagnosis: Essential (primary) hypertension[ICD10: I10] Diagnosis: Supraventricular tachycardia[ICD10: I47.1] Diagnosis: Other fatigue[ICD10: R53.83] Carmelina Ott MD, [facility] CPT-4: 89722 07/24/2016 ([id number]) 07778 EST. P ATIENT, LEVEL IV Diagnosis: Type 2 diabetes mellitus without complications[ICD10: E11.9] Diagnosis: Essential (primary) hypertension[ICD10: I10] Diagnosis: Hypothyroidism, unspecified[ICD10: E03.9] Carmelina Ott MD, C CPT-4: 99951 04/24/2016 ([id number]) 94030 EST. P ATIENT, LEVEL IV Diagnosis: Type 2 diabetes mellitus without complications[ICD10: E11.9] Diagnosis: Type 2 diabetes mellitus with diabetic polyneuropathy[ICD10: E11.42] Carmelina Ott MD, [facility] CPT-4: 81033 01/18/2016 ([id number]) 13073 EST. P ATIENT, LEVEL IV Diagnosis: Urticaria, unspecified[ICD10: L50.9] Diagnosis: Dermatographic urticaria[ICD10: L50.3] Diagnosis: Hypothyroidism, unspecified[ICD10: E03.9] Diagnosis: Type 2 diabetes mellitus without complications[ICD10: E11.9] Diagnosis: Mixed hyperlipidemia[ICD10: E78.2] Diagnosis: Myalgia[ICD10: M79.1] Diagnosis: Essential (primary) hypertension[ICD10: I10] Carmelina Ott MD, [facility] CPT-4: 65278 12/21/2015 ([id number]) 46958 EST. P ATIENT, LEVEL IV Diagnosis: Hypothyroidism, unspecified[ICD10: E03.9] Diagnosis: Essential (primary) hypertension[ICD10: I10] Diagnosis: Urticaria, unspecified[ICD10: L50.9] Carmelina Ott MD, [facility] CPT-4: 65493 08/17/2015 ([id number]) Miscellaneou s no charge Diagnosis: ESSENTIAL HYPERTENSION[ICD9: 401.9] Diagnosis: Elevated temperature[ICD9: 780.60] Diagnosis: EDEMA[ICD9: 782.3] Katja Ott MD, [facility] CPT-4: 77935 06/23/2015 ([id number]) 37918 EST. P ATIENT, LEVEL IV Diagnosis: ESSENTIAL HYPERTENSION[ICD9: 401.9] Diagnosis: TACHYCARDIA[ICD9: 785.0] Diagnosis: Dyspnea[ICD9: 786.09] Katja Ott MD, [facility] CPT-4: 61907 06/21/2015 ([id number]) 95314 EST. P ATIENT, LEVEL III Diagnosis: Sacroiliitis[ICD9: 720.2] Diagnosis: LUMBAGO[ICD9: 724.2] Nicki Ott MD, [facility] CPT-4: 23234 03/28/2015 ([id number]) 95928 EST. P ATIENT, LEVEL IV Diagnosis: HYPOTHYROIDISM[ICD9: 244.9] Diagnosis: ESSENTIAL HYPERTENSION[ICD9: 401.9] Diagnosis: DIABETES TYPE II[ICD9: 250.00] Diagnosis: HYPERLIPIDEMIA[ICD9: 272.4] Diagnosis: Muscle ache[ICD9: 729.1] Carmelina Ott MD, [facility] CPT-4: 16460 07/07/2014 ([id number]) 56999 EST. P ATIENT, LEVEL IV Diagnosis: DIABETES TYPE II[SNOMED: 643377624] Diagnosis: ESSENTIAL HYPERTENSION[SNOMED: 06721740] Diagnosis: HYPOTHYROIDISM[ICD9: 244.9] Carmelina Ott MD, [facility] CPT-4: 19885 03/24/2014 ([id number]) 38689 EST. P ATIENT, LEVEL III Diagnosis: DIABETES TYPE II[SNOMED: 750489654] Diagnosis: ESSENTIAL HYPERTENSION[SNOMED: 76011010] Carmelina Ott MD, C CPT-4: 63874 01/20/2014 ([id number]) 60551 EST. P ATIENT, LEVEL IV Diagnosis: DIABETES TYPE II[SNOMED: 415018870] Diagnosis: ESSENTIAL HYPERTENSION[SNOMED: 66119829] Diagnosis: Peripheral neuropathy, idiopathic[ICD9: 356.9] Carmelina Ott MD, [facility] CPT-4: 76106 12/20/2013 ([id number]) 79759 EST. P ATIENT, LEVEL IV Diagnosis: DIABETES TYPE II[SNOMED: 985628762] Diagnosis: ESSENTIAL HYPERTENSION[SNOMED: 28420693] Diagnosis: Dietary counseling and surveillance[ICD9: V65.3] Carmelina Ott MD, [facility] CPT-4: 51948 10/25/2013 ([id number]) 74300 EST. P ATIENT, LEVEL IV Diagnosis: DIABETES TYPE II[SNOMED: 527494839] Diagnosis: ESSENTIAL HYPERTENSION[SNOMED: 46605844] Diagnosis: HYPOTHYROIDISM[ICD9: 244.9] Carmelina Ott MD, [facility] CPT-4: 70628 10/19/2013 ([id number]) 38926 EST. P ATIENT, LEVEL IV Diagnosis: ESSENTIAL HYPERTENSION[SNOMED: 36065207] Diagnosis: DIABETES TYPE II[SNOMED: 474221842] Diagnosis: HYPOTHYROIDISM[ICD9: 244.9] Carmelina Ott MD, [facility] CPT-4: 22574 05/25/2013 ([id number]) 58208 EST. P ATIENT, LEVEL IV Diagnosis: DIABETES TYPE II[SNOMED: 600759463] Diagnosis: ESSENTIAL HYPERTENSION[SNOMED: 99984414] Diagnosis: HYPOTHYROIDISM[ICD9: 244.9] Carmelina Ott MD, [facility] CPT-4: 56574 02/18/2013 ([id number]) 13607 EST. P ATIENT, LEVEL III Diagnosis: ESSENTIAL HYPERTENSION[SNOMED: 25870322] Carmelina Ott MD, C CPT-4: 06263 10/01/2012 ([id number]) 52036 EST. P ATIENT, LEVEL IV Diagnosis: DIABETES TYPE II[SNOMED: 831084371] Diagnosis: ESSENTIAL HYPERTENSION[SNOMED: 20021274] Carmelina Ott MD, C CPT-4: 52250 05/18/2012 ([id number]) 89743 EST. P ATIENT, LEVEL IV Diagnosis: DIABETES TYPE II[SNOMED: 001112981] Diagnosis: HYPOTHYROIDISM[ICD9: 244.9] Diagnosis: UTI (lower urinary tract infection)[ICD9: 599.0] Diagnosis: Vaginal yeast infection[ICD9: 112.1] Diagnosis: Rectal lump[ICD9: 787.99] Diagnosis: Abdominal bloating[ICD9: 787.3] Carmelina Ott MD, [facility] CPT-4: 52448 02/11/2012 ([id number]) 77183 EST. P ATIENT, LEVEL IV Diagnosis: ESSENTIAL HYPERTENSION[SNOMED: 64978166] Diagnosis: DIABETES TYPE II[SNOMED: 320741215] Diagnosis: HYPERLIPIDEMIA[ICD9: 272.4] Diagnosis: HYPOTHYROIDISM[ICD9: 244.9] Carmelina Ott MD, [facility] CPT-4: 59415 01/14/2012 Plan of Care Planned Activity Notes [...] assure normal liver response to medications. 04/21/2019 Patient Education: Patient Medication Summary Completed [...] allergy spray. 02/17/2019 Appointment: Lu[facility] Latham [facility] [place] (15 min) Moderate 02/17/2019 Patient Education: Patient Medication Summary Completed 02/17/2019 Patient Education: Patient Medication Summary Completed 12/31/2018 Appointment: Carmelina Ott [facility]Ptel: [facility] (15 min) Moderate 12/28/2018 Patient Education: [...] with Cymbalta. 08/27/2018 Appointment: Carmel[facility] Ott [facility]Ptel[phone] (15 min) Moderate 08/27/2018 Patient Education: [...] Gait instabilty-patient going to do PT at [facility] 02/24/2018 Appointment: Nick[facility] Cab[phone] (30 min) Complex 02/24/2018 Patient Education: [...] not improved. 11/03/2017 Appointment: Nicki Cabral WPtel: [facility] [address] (30 min) Complex 11/03/2017 Patient Education: [...] spray in the nasal steroid allergy spray. Lddohjmplp-ksjepfzx-aswpsalh cymbalta 08/08/2017 Appointment: Nicki Cabral WPtel: [phone] [phone] (30 min) Complex 08/08/2017 Patient Education: Patient [...] patient. 07/10/2017 Appointment: Carmelina Ott [facility]Ptel[phone] (15 min) Moderate 07/10/2017 Appointment: [facility] Cab[phone] (30 min) Complex 07/10/2017 Patient Education: Patient [...] recommended pt to continue with aleve, get [place] to use on your knee and hip [...] control. 03/06/2017 Appointment: Carmelina Ott WPtel: [phone] [facility] (15 min) Moderate 03/06/2017 Patient Education: Patient Medication Summary Completed 03/06/2017 Patient Education: Obesity Completed 03/06/2017 Visit Plan: Rash-very faint-will cu lture the rash today- recommend emollient such as eucerin cream or cerave-call if rash does not resolve or if any worse. Patient verbalized understanding of plan. 03/04/2017 Appointment: Nicki Cabral WPtel: [phone] [place] (15 min) Moderate 03/04/2017 Patient Education: Patient Medication Summary Completed 03/04/2017 Appointment: Carmelina Ott WPtel: [facility] (15 min) Moderate 02/19/2017 Visit [...] care surrogate. 11/04/2016 Appointment: Luz Latham WPtel: [facility] [facility] - Annual Wellness Visit 11/04/2016 Patient Education: [...] control. 10/23/2016 Appointment: Carmelina Ott [facility]Ptel: [phone] (15 min) Moderate 10/23/2016 Patient Education: [...] control. 10/03/2016 App[facility]ment: [phone] (30 min) Complex 10/03/2016 Patient Education: Patient Medication Summary Completed 10/03/2016 Patient Education: Obesity Completed 10/03/2016 Visit Plan: Insect bite-right cheek -kenalog injection today in the office-use benadryl cream as needed for itching. Call for s/s of infection-increase redness, warmth, induration. Patient verbalized understanding of plan. 09/03/2016 Appointment: Nicki Cabral WPtel: [phone] [phone] [place] [address] (15 min) Moderate 09/03/2016 Patient Education: Patient [...] control. 08/21/2016 Appointment: Carmelina Ott [facility]Ptel[phone] (15 min) Moderate 08/21/2016 Patient Education: [...] control. 04/24/2016 Appointment: Carmelina Ott [facility]Ptel: [phone] (15 min) Moderate 04/24/2016 Patient Education: Patient [...] neuropathy. 01/18/2016 Appointment: Carmelina Ott WPtel: [phone] [facility] [place] (15 min) Moderate 01/18/2016 Patient Education: [...] today. 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 07/07/2014 Appointment: Carmelina Ott WPtel: [address] [place], [place] [address] Follow up 07/07/2014 Patient Education: Patient Medication [...] control. 03/24/2014 Appointment: Carmelina Ott WPtel: [phone] [facility] Follow up 03/24/2014 Patient Education: Patient Medication [...] controlled. 01/20/2014 Appointment: Carmel[facility] Ott [facility]Ptel: [phone] [facility] 01/20/2014 Patient Education: Patient Medication Summary Completed 01/20/2014 Patient Education: Hypertension Completed 01/20/2014 Appointment: Carmelina Ott WPtel: [facility] Follow [facility] 01/17/2014 Visit Plan: Diabetes Mellitus [...] control. 12/20/2013 Appointment: Carmelina Ott WPtel: [phone] [facility] [facility] 12/20/2013 Patient Education: Patient Medication Summary Completed [...] WEEK 10/25/2013 Appointment: Carmelina Ott WPtel: [phone] Diabetic education 10/25/2013 Patient Education: Patient [...] control. 10/19/2013 Appointment: Carmelina Ott WPtel: [phone] [facility] Follow up 10/19/2013 Patient Education: Patient Medication Summary Completed 10/19/2013 Patient Education: Hypertension Completed 10/19/2013 Appointment: Carmelina Ott WPtel: [phone] [facility] Follow up 09/23/2013 Visit Plan: Hypertension - [...] of control. 05/25/2013 Appointment: Carmelina Ott WPtel: [facility] Follow up 05/25/2013 Patient Education: Patient Medication Summary Completed 05/25/2013 Patient Education: Hypertension Completed 05/25/2013 Appointment: Carmelina Ott WPtel: [facility] Follow up 05/19/2013 Visit Plan: Diabetes Mellitus [...] months. 02/18/2013 Appointment: Carmelina Ott [facility]Ptel: [phone] [facility] 02/18/2013 Patient Education: Patient Medication [...] resolved. 10/01/2012 Appointment: Carmelina Ott WPtel: [phone] Other 10/01/2012 Patient Education: Patient Medication [...] for yeast 02/11/2012 Appointment: Carmelina Ott WPtel: [address] [place] [address] pt will comment on meaningful use (from [...] exercises. 01/14/2012 Appointment: Carmel[facility] Ott [facility]Ptel: [phone] Other 01/14/2012 Patient Education: Patient Medication Summary Completed 01/14/2012 Patient Education: High Blood Pressure: Essential Hypertension Completed 01/14/2012 Referral: Andrew Madera Referral Relationship Referral: Ravi Gaston WPtel: [address] [id number] [place] Referral Relationship Referral: Ella Saldana Referral [...] ick to lip Chest X-Ray at [facility] today We will write referral order for [...] ick to lip Chest X-Ray at [facility] today We will write referral order for [...] spray in the nasal steroid allergy spray. Etzadoangc-fspokgvm-ciowairx cymbalta CYMBALTA 30MG DAILY . Hypertension - [...] Gait instabilty-patient going to do PT at [facility] . URI - Pt advised t [...] x 2weeks and to talk to her plant technician about potential permanent decrease in her medication [...] x 2weeks and to talk to her plant technician about potential permanent decrease in her medication [...] recommended pt to continue with aleve, get [place] to use on your knee and hip [...] recommended pt to continue with aleve, get [place] to use on your knee and hip [...] thyroid function studies in 3 months. . Diabetes Mellitus - controlled - per [...]
--- OUTSIDE RECORDS SUMMARY | 2020-05-26 12:14 | XMS REPORT | CCD ---
Author Author Aleyda Ott nm Organization Carmelina Ott MD, [facility] Address [facility] [place] [address] Phone Care Team Providers Care Director Of Instructional Technology Name Role Phone PP Unavailable CCM Unavailable Summary Purpose Interface Exchange Insurance Providers Payer name Policy type / Coverage type Covered green party ID Effective Begin Date Effective End Date WPS Medicare Part B Medicare Part B [id number] 2013 Unknown [facility] ica Part B [id number] 2013 Unkno wn Family history Brother Diagnosis Age At Onset Heart disease Unknown Sister Diagnosis Age At Onset endometrial cancer Unknown Father Diagnosis Age At Onset Heart disease Unknown Mother Diagnosis Age At Onset Heart disease Unknown Social History Social History Element Codes Description Effective Dates Marital status Unknown W idowed 01/14/[address]: [id number] Nonsmoker 01/14/2012 Has the patient ever used illegal drugs? Unknown Has never used illegal drugs 012 Allergies, Adverse Reactions, Alerts Substance Reaction Codes Entered Date Inactivated Date Status * NO KNOWN FOOD [place] RGIES Unknown 01/14/2012 No Inactive Date Active * NO KNOWN DRUG [place] RGIES Unknown 01/14/2012 No Inactive Date Active Past Medical History Illness Codes Condition Status Onset Date Resolved Date Acute laryngopharyng itis ICD-9: 465.0 ICD-10: J06.0 Active 02/17/2019 Unknown Other allergic rhinitis ICD-9: 477.8 ICD-10: J30.89 Active 08/08/2017 Unknown Encounter for screen ing mammogram for malignant neoplasm of breast ICD-9: V76.10 ICD-10: Z12.31 Active 12/31/2018 Unknown Essential (primary) hypertension ICD-9: 401.1 ICD-10: I10 Active 08/20/2016 Unknown Hypothyroidism, unsp ecified ICD-9: 244.9 ICD-10: E03.9 Active 07/07/2014 Unknown Mixed hyperlipidemia ICD-9: 272.4 ICD-10: E78.2 Active 07/07/2014 Unknown Other specified anemias ICD-9: [...] ICD-9: 338.4 ICD-10: G89.4 Active 07/10/2017 Unknown Type 2 diabetes moisés itus without complications ICD-9: 250.00 ICD-10: E11.9 Active 07/07/2014 Unknown Unsteadiness on feet ICD-9: 781.2 ICD-10: R26.81 Active 02/24/2018 Unknown Vitamin B12 deficien cy anemia, unspecified ICD-9: 281.1 ICD-10: D51.9 Active 02/24/2018 Unknown Pain in left shoulder ICD-9: 719.41 ICD-10: M25.512 Active 11/03/2017 Unknown Major depressive dis order, recurrent, mild ICD-9: 296.31 ICD-10: F33.0 Active 07/10/2017 Unknown Myalgia ICD-9: 729.1 ICD-10: M79.1 Active 07/07/2014 Unknown Atrophy of thyroid ( acquired) ICD-9: 244.8 ICD-10: E03.4 Active 10/23/2016 Unknown Sacroiliitis, not el sewhere classified ICD-9: [...] Condition Codes Effectiv e Dates Condition Status Acute laryngopharyng itis ICD-9: 465.0 ICD-10: J06.0 02/17/2019 Active Other allergic rhinitis ICD-9: 477.8 ICD-10: J30.89 08/08/2017 Active Encounter for screen ing mammogram for malignant neoplasm of breast ICD-9: V76.10 ICD-10: Z12.31 12/31/2018 Active Essential (primary) hypertension ICD-9: 401.1 ICD-10: I10 08/20/2016 Active Hypothyroidism, unsp ecified ICD-9: 244.9 ICD-10: E03.9 07/07/2014 Active Mixed hyperlipidemia ICD-9: 272.4 ICD-10: E78.2 07/07/2014 Active Other specified anemias ICD-9: 285.8 ICD-10: D64.89 10/02/2016 Active 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 ICD-9: 250.60 ICD-10: E11.42 01/17/2016 Active Pain in left leg ICD-9: 729.5 ICD-10: M79.605 08/27/2018 Active Pain in right leg ICD-9: 729.5 ICD-10: M79.604 08/27/2018 Active Other fatigue ICD-9: 780.79 ICD-10: R53.83 07/23/2016 Active Chronic pain syndrome ICD-9: 338.4 ICD-10: G89.4 07/10/2017 Active Type 2 diabetes moisés itus without complications ICD-9: 250.00 ICD-10: E11.9 07/07/2014 Active Unsteadiness on feet ICD-9: 781.2 ICD-10: R26.81 02/24/2018 Active Vitamin B12 deficien cy anemia, unspecified ICD-9: 281.1 ICD-10: D51.9 02/24/2018 Active Pain in left shoulder ICD-9: 719.41 ICD-10: M25.512 11/03/2017 Active Major depressive dis order, recurrent, mild ICD-9: 296.31 ICD-10: F33.0 07/10/2017 Active Myalgia ICD-9: 729.1 ICD-10: M79.1 07/07/2014 Active Atrophy of thyroid ( acquired) ICD-9: 244.8 ICD-10: E03.4 10/23/2016 Active Sacroiliitis, not el sewhere classified ICD-9: [...] Instructions Zithromax Z-Sony 250 mg tablet RxNorm: 652451 Tablet(s) PO UD 02/17/2019 No Stop Date Active Synthroid 50 mcg tablet RxNorm: 542411 TAKE ONE TABLET BY MOUTH DAILY (DISCONTI NUE LEVOTHYROXINE) 12/14/2018 12/08/2019 Active metoprolol succinate ER 50 mg tablet,extended release 24 hr RxNorm: 738806 1 Tablet(s) PO QPM TAKE ONE TABLET BY MOUTH EVERY EVENING 10/20/2018 03/18/2019 Active metoprolol succinate ER 50 mg tablet,extended release 24 hr RxNorm: 931596 1 Tablet(s) PO QPM TAKE ONE TABLET BY MOUTH EVERY EVENING 05/08/2018 10/19/2018 Inactive Cymbalta 30 mg capsu le,delayed release RxNorm: 349909 TAKE ONE CAPSULE BY M OUTH DAILY 11/24/2017 11/18/2018 Inactive Synthroid 50 mcg tablet RxNorm: 320127 TAKE ONE TABLET BY MOUTH DAILY (DISCONTI NUE LEVOTHYROXINE) 11/24/2017 12/13/2018 Inactive Voltaren 1 % topical gel RxNorm: 755515 TOP 11/03 No Stop Date Active metoprolol succinate ER 50 mg tablet,extended release 24 hr RxNorm: 661634 1 Tablet(s) PO QPM TAKE ONE TABLET BY MOUTH EVERY EVENING 10/06/2017 05/03/2018 Inactive Synthroid 50 mcg tablet RxNorm: 836875 TAKE ONE TABLET BY MOUTH DAILY (DISCONTI NUE LEVOTHYROXINE) 09/04/2017 11/23/2017 Inactive Cymbalta 30 mg capsu le,delayed release RxNorm: 435497 1 Capsule(s) PO daily 07/10/2017 10/07/2017 In active metoprolol succinate ER 50 mg tablet,extended release 24 hr RxNorm: 961521 TAKE ONE TABLET BY MOUTH EVERY EVENING 03/06/2017 10/01/2017 Inactive Kenalog 40 mg/mL marguerite pension for injection RxNorm: 4724160 Milliliter(s) Inj 09/03/2016 09/03/2016 In active tramadol 50 mg tablet RxNorm: 537106 1 Tablet(s) PO Q4-6H as needed 08/21/2016 No Stop Date Active Synthroid 50 mcg tablet RxNorm: 430526 1 Tablet(s) PO daily 08/21/2016 08/15/2017 Inactive DC levothyroxine metoprolol succinate ER 25 mg tablet,extended release 24 hr RxNorm: 470693 1 Tablet(s) PO QAM 07/24/2016 08/20/2016 Inactive metoprolol succinate ER 50 mg tablet,extended release 24 hr RxNorm: 530772 1 Tablet(s) PO QPM 07/24/2016 02/18/2017 Inactive Synthroid 50 mcg tablet RxNorm: 419554 1 Tablet(s) PO daily 06/10/2016 08/20/2016 Inactive DC levothyroxine Synthroid 50 mcg tablet RxNorm: 686700 1 Tablet(s) PO daily 05/16/2016 06/09/2016 Inactive hydrocortisone 2.5 % topical cream RxNorm: 059484 1 Application TOP TID 05/08/2016 08/05/2016 In active hydrocortisone 2.5 % topical cream RxNorm: 181473 1 Application TOP TID 05/08/2016 05/07/2016 In active betamethasone diprop ionate 0.05 % topical cream RxNorm: 636364 1 Application TOP BID as needed 04/24/2016 05/07/2016 Inactive betamethasone diprop ionate 0.05 % topical cream RxNorm: 041218 1 Application TOP BID as needed 04/24/2016 04/23/2016 Inactive loratadine 10 mg tablet RxNorm: 873044 1 Tablet(s) PO daily 01/18/2016 05/16/2016 Inactive loratadine 10 mg dis integrating tablet RxNorm: 535774 1 Tablet(s) PO daily 01/18/2016 01/17/2016 In active Synthroid 50 mcg tablet RxNorm: 789619 1 Tablet(s) PO daily 01/01/2016 04/29/2016 Inactive Synthroid 50 mcg tablet RxNorm: 483458 1 Tablet(s) PO daily 01/01/2016 12/31/2015 Inactive prednisone 20 mg tablet RxNorm: 507010 3 Tablet(s) PO daily 09/11/2015 09/15/2015 Inactive prednisone 20 mg tablet RxNorm: 301907 3 Tablet(s) PO daily 09/11/2015 09/10/2015 Inactive Abreva 10 % topical cream RxNorm: 327170 1 Application TOP 5x daily 06/23/2015 07/12/2015 Inactive Apply to lip lesions 5 times per day for 10 days prednisone 20 mg tablet RxNorm: 882340 2 Tablet(s) PO daily x3 06/12/2015 06/14/2015 Inactive prednisone 20 mg tablet RxNorm: 400494 2 Tablet(s) PO daily x3 06/12/2015 06/11/2015 Inactive Kenalog 40 mg/mL marguerite pension for injection RxNorm: 8889475 1 Milliliter(s) Inj 03/28/2015 03/28/2015 In active hydrocodone 7.5 mg-a cetaminophen 325 mg tablet RxNorm: 362405 1 Tablet(s) PO Q4-6H as needed for back pain 03/28/2015 06/11/2015 Inactive Synthroid 50 mcg tablet RxNorm: 006343 1 Tablet(s) PO daily TAKE ONE TABLET BY MOUTH EVERY DAY 12/12/2014 12/11/2014 Inactive Synthroid 50 mcg tablet RxNorm: 995387 TAKE ONE TABLET BY MOUTH EVERY DAY 12/12/2014 12/20/2015 In active hydrocodone 7.5 mg-a cetaminophen 325 mg tablet RxNorm: 931699 1 Tablet(s) PO Q4-6H as needed for back pain 07/07/2014 09/04/2014 Inactive Synthroid 50 mcg tablet RxNorm: 997608 1 Tablet(s) PO daily TAKE ONE TABLET BY MOUTH EVERY DAY 07/07/2014 12/11/2014 Inactive Synthroid 50 mcg tablet RxNorm: 546038 TAKE ONE TABLET BY MOUTH EVERY DAY 06/06/2014 06/10/2014 In active Synthroid 50 mcg tablet RxNorm: 182884 TAKE ONE TABLET BY MOUTH EVERY DAY 06/06/2014 06/10/2014 In active Singulair 10 mg tablet RxNorm: 242228 Tablet(s) PO TAKE ONE TABLET BY MOUTH EV FCO03/03/2014 06/22/2015 Inactive hydrocodone 5 mg-kristofer taminophen 500 mg tablet RxNorm: 265575 Tablet(s) PO PRN 01/20/2014 07/06/2014 In active Synthroid 50 mcg tablet RxNorm: 156704 1 Tablet(s) PO daily name brand only 12/14/2013 12/13/2013 In active name brand only Synthroid 50 mcg tablet RxNorm: 706960 1 Tablet(s) PO daily name brand only 12/14/2013 06/05/2014 In active name brand only Januvia 50 mg tablet RxNorm: 914570 1 Tablet(s) PO daily 03/24/2013 05/25/2013 Inactive Singulair 10 mg tablet RxNorm: 979209 Tablet(s) PO TAKE ONE TABLET BY MOUTH FCO03/02/2013 03/02/2014 Inactive levothyroxine 50 mcg tablet RxNorm: 334722 1 Tablet(s) PO daily 02/03/2013 02/02/2013 Inactive levothyroxine 50 mcg tablet RxNorm: 112671 1 Tablet(s) PO daily 02/03/2013 10/18/2013 Inactive levothyroxine 25 mcg tablet RxNorm: 628278 1 /2 Tablet(s) PO daily 01/29/2013 02/02/2013 Inactive one and one half tab daily (1 /2)may zhang ve 90 day supply if cheaper levothyroxine 25 mcg tablet RxNorm: 160270 Tablet(s) PO TAKE 1 A ND 1/2 TABLETS ONCE DAILY 11/02/2012 05/25/2013 Inactive glipizide 5 mg tablet RxNorm: 260312 Tablet(s) PO TAKE ONE-HALF TABLET BY ADÁN TH EVERY DAY 10/19/2012 05/25/2013 Inactive metformin 500 mg tablet RxNorm: 029790 Tablet(s) PO TAKE ONE-HALF TABLET BY ADÁN TH TWICE A DAY 10/19/2012 05/25/2013 Inactive Voltaren 1 % Topical Gel RxNorm: 675113 4 Gram(s) TOP QID 10/01/2012 12/25/2015 Inactive levothyroxine 25 mcg tablet RxNorm: 338682 1 1/2 Tablet(s) PO daily 08/03/2012 01/28/2013 Inactive one and one half tab daily (1 2)may zhang ve 90 day supply if cheaper metformin 500 mg tablet RxNorm: 414924 1/2 Tablet(s) PO BID 03/03/2012 08/29/2012 Inactive glipizide 5 mg Tab RxNorm: 785553 1/2 Tablet(s) PO daily 03/03/2012 03/02/2012 Inactive metformin 500 mg Tab RxNorm: 427521 1/2 Tablet(s) PO BID 03/03/2012 03/02/2012 Inactive glipizide 5 mg tablet RxNorm: 118183 1/2 Tablet(s) PO daily 03/03/2012 08/29/2012 Inactive Singulair 10 mg tablet RxNorm: 556964 1 Tablet(s) PO daily 03/02/2012 03/01/2013 Inactive Bactrim DS 800 mg-16 0 mg Tab RxNorm: 755419 1 Tablet(s) PO BID 02/11/2012 02/20/2012 Inactive fluconazole 150 mg Tab RxNorm: 794208 1 Tablet(s) PO daily 02/11/2012 05/25/2013 Inactive levothyroxine 25 mcg tablet RxNorm: 141772 1 1/2 Tablet(s) PO daily 01/15/2012 07/12/2012 Inactive one and one half tab daily (1 1/2)may zhang ve 90 day supply if cheaper levothyroxine 100 mc g Tab RxNorm: 813178 1 Tablet(s) PO daily 09/04/2011 01/14/2012 Inactive Singulair 10 mg Tab RxNorm: 214451 1 Tablet(s) PO daily 09/04/2011 03/01/2012 Inactive zinc lozenges RxNorm: 1 PO QHS No Start Date Active Vitamin B-6 100 mg t ablet RxNorm: 346830 2 Tablet(s) PO QPM No Start Date Active Zinc Chelate 15 mg t ablet RxNorm: 1 Tablet(s) PO daily with 1 ,000 mg calcium No Start Date Active Vitamin D3 2,000 uni t tablet RxNorm: 928575 1 Tablet(s) PO QPM No Start Date Active Artificial Tears RxNorm: 179375 ophthalmic No Start Date Active pravastatin 20 mg ta blet RxNorm: 275078 1 Tablet(s) PO QHS No Start Date Active Nitrostat 0.4 mg Sub lingual Tab RxNorm: 473473 Tablet(s) SL PRN No Start Date Active Vitamin C 100 mg tablet RxNorm: 829950 1 Tablet(s) PO QHS No Start Date Active Fish Oil 360 mg-1,20 0 mg capsule RxNorm: 779285 1 Capsule(s) PO daily No Start Date Active latanoprost 0.005 % eye drops RxNorm: 862539 1 Drop(s) OPH each ey e QHS No Start Date Active Vitamin B-12 1,000 m cg tablet RxNorm: 752196 1 Tablet(s) PO daily No Start Date Active [place] Saline nasal RxNorm: 9863 nasal No Start Date Active [place] Complete oral RxNorm: oral No Start D ate Active aspirin 81 mg Tab, D elayed Release RxNorm: 002104 1 Tablet(s) PO daily No Start Date Active vitamin D3-[place] ne 7 Oral RxNorm: Oral No Start D ate 12/26/2015 Inactive vitamin B6-vitamin E -magnesium Tab RxNorm: 1 Tablet(s) PO daily No Start Date 12/26/2015 Inactive Zinc Chelate 15 mg t ablet RxNorm: 1 Tablet(s) PO daily with 4 00 mg Magnesium No Start Date 10/23/2016 Inactive pravastatin 20 mg ta blet RxNorm: 265326 1 Tablet(s) PO daily No Start Date 01/19/2014 Inactive Zocor 20 mg Tab RxNorm: 477232 1 Tablet(s) PO QHS No Start Date 05/25/2013 Inactive Plavix 75 mg tablet RxNorm: 263874 1 Tablet(s) PO daily No Start Date 03/28/2015 Inactive metoprolol succinate ER 100 mg tablet,extended release 24 hr RxNorm: 223614 1 Tablet(s) PO daily No Start Date 07/23/2016 Inactive Januvia 100 mg Tab RxNorm: 533655 1 Tablet(s) PO daily No Start Date 05/25/2013 Inactive tramadol 50 mg tablet RxNorm: 584268 1 Tablet(s) PO as needed No Start Date 08/20/2016 Inactive [place] Complete Oral RxNorm: Oral No Start D ate 12/26/2015 Inactive Plavix 75 mg Tab RxNorm: 275192 1 Tablet(s) PO every other day No Start Date 05/25/2013 Inactive Accu-Chek Compact Te st strips RxNorm: 1 test Miscellaneous BID No Start Date 10/22/2016 Inactive accu-chek compact plus Accu-Chek Softclix L ancets RxNorm: 1 test Miscellaneous daily No Start Date 10/22/2016 Inactive Fish Oil 1,000 mg Cap RxNorm: 1 Capsule(s) PO daily No Start Date 12/26/2015 Inactive Januvia 50 mg tablet RxNorm: 638018 Tablet(s) PO No Start Date 03/23/2013 Inactive hydrocodone 5 mg-kristofer taminophen 500 mg tablet RxNorm: 008923 Tablet(s) PO PRN No Start Date 01/19/2014 Inactive Synthroid 50 mcg tablet RxNorm: 833084 1 Tablet(s) PO daily name brand only No Start Date 12/13/2013 Inactive name brand only levothyroxine 25 mcg Tab RxNorm: 561691 1 Tablet(s) PO daily 1 tab q morning on empty stomach No Start Date 01/13/2012 Inactive metoprolol succinate ER 50 mg 24 hr Tab RxNorm: 291745 1 Tablet(s) PO daily No Start Date 12/25/2015 Inactive pravastatin 40 mg ta blet RxNorm: 155480 Tablet(s) PO No Start Date 12/25/2015 Inactive latanoprost Opht RxNorm: Ophthalmic No Start Date 12/26/2015 Inactive cranberry Oral RxNorm: Oral No Start Date 06/22/2015 Inactive Medication Administered Medication Codes Instruc tions Start Date Status Kenalog 40 mg/mL suspension for injection RxNorm: 4669083 Milliliter 09/03/2016 No longer Active Kenalog 40 mg/mL suspension for injection RxNorm: 6999700 1Milliliter 03/28/2015 N o longer Active Immunizations Vaccine Codes Date Status PPD Unknown 06/23/2015 completed Influenza CVX: 141 10/19 completed Assessments Condition Codes Effectiv e Dates Other allergic rhinitis ICD-10: J30. 89 ICD-9: 477.8 02/17/2019 Acute laryngopharyngitis ICD-10: J06 .0 ICD-9: 465.0 02/17/2019 Encounter for screening mammogram for ma lignant neoplasm of breast ICD-10: Z12.31 ICD-9: V76.10 12/31/2018 Essential (primary) hypertension ICD -10: I10 ICD-9: 401.1 12/21/2018 Hypothyroidism, unspecified ICD-10: E03.9 ICD-9: 244.9 12/21/2018 Type 2 diabetes mellitus with diabetic polyneuropathy ICD-10: E11.42 ICD-9: 250.60 12/21/2018 Mixed hyperlipidemia ICD-10: E78.2 ICD-9: 272.4 12/21/2018 Other specified anemias ICD-10: D64. 89 ICD-9: 285.8 12/21/2018 Pain in left leg ICD-10: M79.605 ICD-9: 729.5 08/27/2018 Pain in right leg ICD-10: M79.604 ICD-9: 729.5 08/27/2018 Other fatigue ICD-10: R53.83 ICD-9: 780.79 06/17/2018 Chronic pain syndrome ICD-10: G89.4 ICD-9: 338.4 02/24/2018 Vitamin B12 deficiency anemia, unspecified ICD-10: D51.9 ICD-9: 281.1 02/24/2018 Unsteadiness on feet ICD-10: R26.81 ICD-9: 781.2 02/24/2018 Type 2 diabetes mellitus without complications ICD-10: E11.9 ICD-9: 250.00 02/24/2018 Pain in left shoulder ICD-10: M25.51 2 ICD-9: 719.41 11/03/2017 Major depressive disorder, recurrent, mild ICD-10: F33.0 ICD-9: 296.31 08/08/2017 Myalgia ICD-10: M79.1 ICD-9: 729.1 07/10/2017 Atrophy of thyroid (acquired) ICD-10 : E03.4 ICD-9: 244.8 03/06/2017 Sacroiliitis, not elsewhere classified ICD-10: M46.1 ICD-9: [...] Visit Reason For Visit Effective Dates Notes sore throat 02/17/2019 diabetic foot exam 08/27/2018 [...] Ord30 C/HDL 3.5 Ratio 12/30/2018 Free T4 Ild683 FREE T4 0.64 ng/dL 12/30/2018 %Hba1C Hun070 % HbA1c 82481-8 6.9 % 12/30/2018 %Hba1C Mar311 Gluc Ave 151 mg/dL 12/30/2018 Comp Metabolic Fsw165 NA 140 mEq/L 12/30/2018 Comp Metabolic Wym766 K 4.5 mEq/L 12/30/2018 Comp Metabolic Bsl781 CL 107 mEq/L 12/30/2018 Comp Metabolic Fuf613 CO2 25.0 mEq/L 12/30/2018 Comp Metabolic Mps792 AN ION GAP 13 12/30/2018 Comp Metabolic Cmr832 GL UCOSE 117 mg/dL 12/30/2018 Comp Metabolic Vro473 Cr eat 0.8 mg/dL 12/30/2018 Comp Metabolic Awu854 eG FR 79 ml/min/1.73m2 12/30 Comp Metabolic Nou257 BUN 17 mg/dL 12/30/2018 Comp Metabolic Xma295 B/ C Ratio 22.4 Ratio 12/30/2018 Comp Metabolic Ldg558 CA LCIUM 9.6 mg/dL 12/30/2018 Comp Metabolic Uux730 AL K PHOS 69 U/L 12/30/2018 Comp Metabolic Xlj155 T(SGOT) 23 U/L 12/30/2018 Comp Metabolic Bsw797 AL T(SGPT) 30 U/L 12/30/2018 Comp Metabolic Psl070 BI LI T 0.4 mg/dL 12/30/2018 Comp Metabolic Xpt686 AL BUMIN 4.2 g/dL 12/30/2018 Comp Metabolic Iiw866 TP RO 6.6 g/dL 12/30/2018 Comp Metabolic Hwf733 GL OB 2.4 g/dL 12/30/2018 Comp Metabolic Kqi670 A/ G Ratio 1.8 Ratio 12/30/2018 Comp Metabolic Efp259 Os mo 282 mOsmo 12/30/2018 Tsh Ord6 [...] 31.0 pg 12/30/2018 Cbc With Differential Ord2 Hall% 8.1 % 12/30/2018 Cbc With Differential Ord2 [...] 1.83 K/ul 12/30/2018 Cbc With Differential Ord2 Hall ABS# 0.5 K/ul 12/30/2018 Cbc With Differential Ord2 Eos ABS# 0.1 K/ul 12/30/2018 Cbc With Differential Ord2 Baso ABS# 0.0 K/ul 12/30/2018 Comp Metabolic Nvd404 NA 138 mEq/L 02/24/2018 Comp Metabolic Ico904 K 4.3 mEq/L 02/24/2018 Comp Metabolic Jet533 CL 103 mEq/L 02/24/2018 Comp Metabolic Cbc710 CO2 27.0 mEq/L 02/24/2018 Comp Metabolic Jqi208 AN ION GAP 12 02/24/2018 Comp Metabolic Aui444 GL UCOSE 96 mg/dL 02/24/2018 Comp Metabolic Ors762 Cr eat 0.7 mg/dL 02/24/2018 Comp Metabolic Gwe997 eG FR 86 ml/min/1.73m2 02/24 Comp Metabolic Mzr061 BUN 17 mg/dL 02/24/2018 Comp Metabolic Nnl731 B/ C Ratio 23.9 Ratio 02/24/2018 Comp Metabolic Mnr611 CA LCIUM 9.2 mg/dL 02/24/2018 Comp Metabolic Yzj191 AL K PHOS 67 U/L 02/24/2018 Comp Metabolic Ech901 T(SGOT) 25 U/L 02/24/2018 Comp Metabolic Rka105 AL T(SGPT) 25 U/L 02/24/2018 Comp Metabolic Pud890 BI LI T 0.3 mg/dL 02/24/2018 Comp Metabolic Fjk339 AL BUMIN 3.9 g/dL 02/24/2018 Comp Metabolic Moc330 TP RO 6.5 g/dL 02/24/2018 Comp Metabolic Zrm120 GL OB 2.6 g/dL 02/24/2018 Comp Metabolic Khb829 A/ G Ratio 1.5 Ratio 02/24/2018 Comp Metabolic Suq336 Os mo 277 mOsmo 02/24/2018 Free T4 Zjc245 FREE T4 0.71 ng/dL 02/24/2018 Tsh Ord6 TSH (3rd IS) 2.53 uIU/mL 02/24/2018 B12 Wmz144 B12 360.00 pg/ml 02/24/2018 Cbc With Differential [...] 30.4 pg 02/24/2018 Cbc With Differential Ord2 Hall% 11.3 % 02/24/2018 Cbc With Differential Ord2 [...] 2.18 K/ul 02/24/2018 Cbc With Differential Ord2 Hall ABS# 0.8 K/ul 02/24/2018 Cbc With Differential Ord2 Eos ABS# 0.2 K/ul 02/24/2018 Cbc With Differential Ord2 Baso ABS# 0.0 K/ul 02/24/2018 %Hba1C Bpx282 % HbA1c 08579-0 6.5 % 02/24/2018 %Hba1C Zrz545 Gluc Ave 140 mg/dL 02/24/2018 Tsh Ord6 hTSH II 3.98 uIU/mL 11/03/2017 Comp Metabolic Txt650 NA 139 mEq/L 11/03/2017 Comp Metabolic Nqq665 K 4.1 mEq/L 11/03/2017 Comp Metabolic Igk415 CL 102 mEq/L 11/03/2017 Comp Metabolic Mxk425 CO2 28.0 mEq/L 11/03/2017 Comp Metabolic Waz086 AN ION GAP 13 11/03/2017 Comp Metabolic Ojr339 GL UCOSE 96 mg/dL 11/03/2017 Comp Metabolic Lqb708 Cr eat 0.8 mg/dL 11/03/2017 Comp Metabolic Tsz656 eG FR 80 ml/min/1.73m2 11/03 Comp Metabolic Tho514 BUN 16 mg/dL 11/03/2017 Comp Metabolic Crk558 B/ C Ratio 21.3 Ratio 11/03/2017 Comp Metabolic Loc199 CA LCIUM 9.5 mg/dL 11/03/2017 Comp Metabolic Fkr909 AL K PHOS 73 U/L 11/03/2017 Comp Metabolic Qbn361 T(SGOT) 26 U/L 11/03/2017 Comp Metabolic Qqu816 AL T(SGPT) 22 U/L 11/03/2017 Comp Metabolic Wld459 BI LI T 0.4 mg/dL 11/03/2017 Comp Metabolic Fwp657 AL BUMIN 4.1 g/dL 11/03/2017 Comp Metabolic Gdc714 TP RO 6.3 g/dL 11/03/2017 Comp Metabolic Tlf556 GL OB 2.2 g/dL 11/03/2017 Comp Metabolic Ynv212 A/ G Ratio 1.9 Ratio 11/03/2017 Comp Metabolic Rlj720 Os mo 279 mOsmo 11/03/2017 Cbc With [...] 29.8 pg 11/03/2017 Cbc With Differential Ord2 Hall% 10.4 % 11/03/2017 Cbc With Differential Ord2 [...] 2.18 K/ul 11/03/2017 Cbc With Differential Ord2 Hall ABS# 0.7 K/ul 11/03/2017 Cbc With Differential Ord2 Eos ABS# 0.1 K/ul 11/03/2017 Cbc With Differential Ord2 Baso ABS# 0.0 K/ul 11/03/2017 Free T4 Gqa652 FREE T4 0.75 ng/dL 11/03/2017 %Hba1C Hos520 % HbA1c 00862-7 6.4 % 11/03/2017 %Hba1C Qlz542 Gluc Ave 137 mg/dL 11/03/2017 Tsh Ord6 hTSH II 1.77 uIU/mL 03/04/2017 Lipid Ord30 CHOL 125 mg/dL 03/04/2017 Lipid Ord30 HDL 38.0 mg/dl 03/04/2017 Lipid Ord30 TRIG 144 mg/dL 03/04/2017 Lipid Ord30 LDL 58 mg/dL 03/04/2017 Lipid Ord30 C/HDL 3.3 Ratio 03/04/2017 Microalbumin Tgx342 Micr oAlb <0.7 mg/dL 03/04/2017 Comp Metabolic Enx375 NA 139 mEq/L 03/04/2017 Comp Metabolic Ydn024 K 4.4 mEq/L 03/04/2017 Comp Metabolic Yvt925 CL 104 mEq/L 03/04/2017 Comp Metabolic Fda787 CO2 27.0 mEq/L 03/04/2017 Comp Metabolic Klz790 AN ION GAP 12 03/04/2017 Comp Metabolic Slf604 GL UCOSE 95 mg/dL 03/04/2017 Comp Metabolic Hak019 Cr eat 0.8 mg/dL 03/04/2017 Comp Metabolic Vre024 eG FR 79 ml/min/1.73m2 03/04 Comp Metabolic Unc456 BUN 13 mg/dL 03/04/2017 Comp Metabolic Dkj442 B/ C Ratio 17.1 Ratio 03/04/2017 Comp Metabolic Olc935 CA LCIUM 9.2 mg/dL 03/04/2017 Comp Metabolic Jba110 AL K PHOS 62 U/L 03/04/2017 Comp Metabolic Ixk530 T(SGOT) 22 U/L 03/04/2017 Comp Metabolic Cwl242 AL T(SGPT) 22 U/L 03/04/2017 Comp Metabolic Wzf820 BI LI T 0.5 mg/dL 03/04/2017 Comp Metabolic Fjh529 AL BUMIN 3.8 g/dL 03/04/2017 Comp Metabolic Yzy444 TP RO 6.2 g/dL 03/04/2017 Comp Metabolic Fdl787 GL OB 2.4 g/dL 03/04/2017 Comp Metabolic Znc340 A/ G Ratio 1.6 Ratio 03/04/2017 Comp Metabolic Ftp904 Os mo 277 mOsmo 03/04/2017 %Hba1C Lzw981 % HbA1c 13441-1 6.2 % 03/04/2017 %Hba1C Fta799 Gluc Ave 131 mg/dL 03/04/2017 Cbc With [...] 30.6 pg 03/04/2017 Cbc With Differential Ord2 Hall% 9.6 % 03/04/2017 Cbc With Differential Ord2 [...] 1.84 K/ul 03/04/2017 Cbc With Differential Ord2 Hall ABS# 0.6 K/ul 03/04/2017 Cbc With Differential Ord2 Eos ABS# 0.1 K/ul 03/04/2017 Cbc With Differential Ord2 Baso ABS# 0.0 K/ul 03/04/2017 B12 Fjy383 B12 440.00 pg/ml 10/04/2016 Free T4 Koq980 FREE T4 0.77 ng/dL 10/04/2016 Cbc With [...] 30.6 pg 10/04/2016 Cbc With Differential Ord2 Hall% 8.0 % 10/04/2016 Cbc With Differential Ord2 [...] 2.77 K/ul 10/04/2016 Cbc With Differential Ord2 Hall ABS# 0.7 K/ul 10/04/2016 Cbc With Differential Ord2 Eos ABS# 0.1 K/ul 10/04/2016 Cbc With Differential Ord2 Baso ABS# 0.0 K/ul 10/04/2016 Comp Metabolic Ylu249 NA 136 mEq/L 10/04/2016 Comp Metabolic Fon330 K 4.0 mEq/L 10/04/2016 Comp Metabolic Pne473 CL 100 mEq/L 10/04/2016 Comp Metabolic Mnh925 CO2 29.0 mEq/L 10/04/2016 Comp Metabolic Ugx505 AN ION GAP 11 10/04/2016 Comp Metabolic Qhf126 GL UCOSE 92 mg/dL 10/04/2016 Comp Metabolic Bft593 Cr eat 0.7 mg/dL 10/04/2016 Comp Metabolic Wrj987 eG FR 85 ml/min/1.73m2 10/04 Comp Metabolic Tsz409 BUN 17 mg/dL 10/04/2016 Comp Metabolic Mgb789 B/ C Ratio 23.6 Ratio 10/04/2016 Comp Metabolic Ggu567 CA LCIUM 9.7 mg/dL 10/04/2016 Comp Metabolic Dsd088 AL K PHOS 86 U/L 10/04/2016 Comp Metabolic Sqi640 T(SGOT) 23 U/L 10/04/2016 Comp Metabolic Hou064 AL T(SGPT) 27 U/L 10/04/2016 Comp Metabolic Exj821 BI LI T 0.3 mg/dL 10/04/2016 Comp Metabolic Vfu421 AL BUMIN 4.3 g/dL 10/04/2016 Comp Metabolic Pid778 TP RO 6.9 g/dL 10/04/2016 Comp Metabolic Xhx809 GL OB 2.6 g/dL 10/04/2016 Comp Metabolic Rgb397 A/ G Ratio 1.6 Ratio 10/04/2016 Comp Metabolic Mfi964 Os mo 273 mOsmo 10/04/2016 Tsh Ord6 hTSH II 3.75 uIU/mL 10/04/2016 Free T4 Ukp803 FREE T4 0.68 ng/dL 05/17/2016 Tsh Ord6 hTSH II 3.31 uIU/mL 05/17/2016 Alyssa Reflex Profile [id number] ALYSSA (MARCELLA) SCREEN NONE DETECTED 016 Tsh Ord6 hTSH II 6.78 uIU/mL 12/22/2015 C-Reactive Protein Qnt Crqnt CRP 0.2 mg/dl 12/22/2015 Sed Rate Ord21 ESR 15 mm/hr 12/22/2015 Free T4 Zbn616 FREE T4 0.70 ng/dL 12/22/2015 Comp Metabolic Yxc815 NA 138 mEq/L 12/22/2015 Comp Metabolic Spx326 K 4.3 mEq/L 12/22/2015 Comp Metabolic Lin667 CL 102 mEq/L 12/22/2015 Comp Metabolic Ief693 CO2 28.0 mEq/L 12/22/2015 Comp Metabolic Pob762 AN ION GAP 12 12/22/2015 Comp Metabolic Gzp847 GL UCOSE 114 mg/dL 12/22/2015 Comp Metabolic Dhp886 Cr eat 0.8 mg/dL 12/22/2015 Comp Metabolic Ywr318 eG FR 80 ml/min/1.73m2 12/22 Comp Metabolic Lfs500 BUN 18 mg/dL 12/22/2015 Comp Metabolic Urs155 B/ C Ratio 23.7 Ratio 12/22/2015 Comp Metabolic Itt109 CA LCIUM 9.4 mg/dL 12/22/2015 Comp Metabolic Rax540 AL K PHOS 75 U/L 12/22/2015 Comp Metabolic Eor914 T(SGOT) 19 U/L 12/22/2015 Comp Metabolic Zdc650 AL T(SGPT) 20 U/L 12/22/2015 Comp Metabolic Qdv390 BI LI T 0.5 mg/dL 12/22/2015 Comp Metabolic Pov218 AL BUMIN 3.9 g/dL 12/22/2015 Comp Metabolic Ukx722 TP RO 6.2 g/dL 12/22/2015 Comp Metabolic Rip559 GL OB 2.3 g/dL 12/22/2015 Comp Metabolic Xjg116 A/ G Ratio 1.7 Ratio 12/22/2015 Comp Metabolic Egl878 Os mo 278 mOsmo 12/22/2015 Ra Factor Onl164 RA FACT OR <10 IU/ml 12/22/2015 Lipid Ord30 CHOL 150 mg/dL 12/22/2015 Lipid Ord30 HDL 49.0 mg/dl 12/22/2015 Lipid Ord30 TRIG 108 mg/dL 12/22/2015 Lipid Ord30 LDL 79 mg/dL 12/22/2015 Lipid Ord30 C/HDL 3.1 Ratio 12/22/2015 %Hba1C Lpc363 % HbA1c 99974-5 6.2 % 12/22/2015 %Hba1C Zmn472 Gluc Ave 131 mg/dL 12/22/2015 Cbc With [...] 30.0 pg 12/22/2015 Cbc With Differential Ord2 Hall% 7.5 % 12/22/2015 Cbc With Differential Ord2 [...] 2.06 K/ul 12/22/2015 Cbc With Differential Ord2 Hall ABS# 0.4 K/ul 12/22/2015 Cbc With Differential [...] Ord2 RDW 14.2 % 06/21/2015 Comp Metabolic Nra078 NA 135 mEq/L 06/21/2015 Comp Metabolic Lto807 K 4.2 mEq/L 06/21/2015 Comp Metabolic Nyr746 CL 99 mEq/L 06/21/2015 Comp Metabolic Yap346 CO2 27.0 mEq/L 06/21/2015 Comp Metabolic Kgu496 AN ION GAP 13 06/21/2015 Comp Metabolic Zwz813 GL UCOSE 94 mg/dL 06/21/2015 Comp Metabolic Pvh332 Cr eat 0.8 mg/dL 06/21/2015 Comp Metabolic Gpb265 eG FR 81 ml/min/1.73m2 06/21 Comp Metabolic Zpm394 BUN 16 mg/dL 06/21/2015 Comp Metabolic Jgd526 B/ C Ratio 21.3 Ratio 06/21/2015 Comp Metabolic Kch356 CA LCIUM 9.4 mg/dL 06/21/2015 Comp Metabolic Lka260 AL K PHOS 164 U/L 06/21/2015 Comp Metabolic Tuq906 T(SGOT) 22 U/L 06/21/2015 Comp Metabolic Yzg305 AL T(SGPT) 23 U/L 06/21/2015 Comp Metabolic Cio869 BI LI T 0.4 mg/dL 06/21/2015 Comp Metabolic Xsg007 AL BUMIN 4.0 g/dL 06/21/2015 Comp Metabolic Abv553 TP RO 6.6 g/dL 06/21/2015 Comp Metabolic Bhv882 GL OB 2.6 g/dL 06/21/2015 Comp Metabolic Jsj572 A/ G Ratio 1.5 Ratio 06/21/2015 Comp Metabolic Izq478 Os mo 271 mOsmo 06/21/2015 URINALYSIS NONAUTO W/O SCOPE 64904 Specific [place] 1.010 DateTime(Free Text in ) URINALYSIS NONAUTO W/O SCOPE 70336 PH 6.0 DateTime(Free [place] t in ) URINALYSIS NONAUTO W/O SCOPE 85659 GLUCOSE NEG DateTime(Free [place] t in ) URINALYSIS NONAUTO W/O SCOPE 93605 Protein NEG DateTime(Free [place] t in ) URINALYSIS NONAUTO W/O SCOPE 12556 Blood TRACE DateTime(Free T ext in ) URINALYSIS NONAUTO W/O SCOPE 30014 Bilirubin NEG DateTime(Free [place] in ) URINALYSIS NONAUTO W/O SCOPE 27135 Ketones NEG DateTime(Free Te xt in ) URINALYSIS NONAUTO W/O SCOPE 90028 Urobilinogen NEG DateTime(Free Text in Apr) URINALYSIS NONAUTO W/O SCOPE 83538 Nitrite NEG DateTime(Free [place] t in Aprima) URINALYSIS NONAUTO W/O SCOPE 93362 Leukocytes NEG DateTime(Free Text in Aprima) UA 18897 Specific [place] 1.020 DateTime(Free Text in ) UA 22418 PH 5.0 DateTime(Free Text in Apr ) UA 17206 Protein neg DateTime(Free Text in Aprima ) UA 91471 Blood neg DateTime(Free Text in Aprima ) UA 15935 Bilirubin neg DateTime(Free Text in Aprima ) UA 16265 Ketones neg DateTime(Free Text in Aprima ) UA 06783 Urobilinogen 0.2 DateTime(Free Text in ) UA 56851 Nitrite neg DateTime(Free Text in ) UA 14527 Leukocytes neg DateTime(Free Text in ) Review of Systems System Result Effective Dates Constitutional recent illness 02/17/2019 Constitutional chills Constitutional [...] Result Effective Dates Notes Full Exam - ENT Constitutional general appearance [...] time 02/17/2019 None Full Exam - General [facility] Constitutional general appearance Overall: well developed 08/27/2018 [...] 1995 Ears/Nose/Throat oral cavity/pharynx/larynx Overall: no masses 12/20/2013 [...] 09/03/2016 URINALYSIS NONAUTO W /O SCOPE CPT-4: 40751 06/23/2015 TRIAMCINOLONE ACET I [place] NOS CPT-4: J3301 03/28/2015 FOOT EXAM PERFORMED SNOMED CT: 51333561 CPT-4: 2028F 12/20/2013 PRESCRIP TRANSMIT A ERX SY CPT-4: G8553 10/25/2013 PRESCRIP TRANSMIT A ERX SY CPT-4: G8553 10/01/2012 URINALYSIS NONAUTO W /O SCOPE CPT-4: 31235 02/11/2012 PRESCRIP TRANSMIT A ERX SY CPT-4: G8553 02/11/2012 Vital Signs Date Vital 02/17/2019 Blood Pressure 1: 140/72 Code: 8480-6 Heart Rate 1: 82 bpm Height: SpO2: 97% Temperature: 36.8 (C ) / 98.2 (F) Weight: 08/27/2018 Blood Pressure 1: 150/72 Code: 8480-6 BMI: 33.8 Code: 11656-2 Heart Rate 1: 77 bpm Height: 5'3" SpO2: 98% Weight: 191 lbs 02/24/2018 Blood Pressure 1: 140/72 Code: 8480-6 BMI: 33.5 Code: 59577-2 Heart Rate 1: 78 bpm Height: 5'3" SpO2: 98% Weight: 189 lbs 11/03/2017 Blood Pressure 1: 140/72 Code: 8480-6 BMI: 33.2 Code: 54351-9 Heart Rate 1: 71 bpm Height: 5'3" SpO2: 98% Weight: 187 lbs 8 oz 08/08/2017 Blood Pressure 1: 140/66 Code: 8480-6 BMI: 33.1 Code: 67976-4 Heart Rate 1: 73 bpm Height: 5'3" SpO2: 97% Weight: 187 lbs 07/10/2017 Blood Pressure 1: 144/74 Code: 8480-6 BMI: 33.5 Code: 27789-4 Heart Rate 1: 78 bpm Height: 5'3" SpO2: 94% Weight: 189 lbs 03/06/2017 Blood Pressure 1: 140/86 Code: 8480-6 BMI: 32.9 Code: 28245-5 Heart Rate 1: 68 bpm Height: 5'3" SpO2: 98% Weight: 186 lbs 03/04/2017 Blood Pressure 1: 136/82 Code: 8480-6 Heart Rate 1: 61 bpm Height: 5'3" SpO2: 97% Temperature: 36.6 (C ) / 97.8 (F) Weight: 11/04/2016 Blood Pressure 1: 146/76 Code: 8480-6 BMI: 34.7 Code: 09140-5 Heart Rate 1: 70 bpm Height: 5'3" SpO2: 97% Waist Measure (cm): 107 cm Weight: 196 lbs 10/23/2016 Blood Pressure 1: 148/78 Code: 8480-6 BMI: 34.7 Code: 27430-2 Heart Rate 1: 68 bpm Height: 5'3" SpO2: 97% Weight: 196 lbs 10/03/2016 Blood Pressure 1: 142/78 Code: 8480-6 BMI: 34.7 Code: 11558-1 Heart Rate 1: 72 bpm Height: 5'3" SpO2: 98% Weight: 196 lbs 09/03/2016 Blood Pressure 1: 128/88 Code: 8480-6 Heart Rate 1: 86 bpm SpO2: 96% 08/21/2016 Blood Pressure 1: 128/62 Code: 8480-6 BMI: 35.1 Code: 19633-0 Heart Rate 1: 80 bpm Height: 5'3" SpO2: 98% Weight: 198 lbs 07/24/2016 Blood Pressure 1: 150/86 Code: 8480-6 BMI: 34.4 Code: 32366-1 Heart Rate 1: 72 bpm Height: 5'3" SpO2: 97% Weight: 194 lbs 04/24/2016 Blood Pressure 1: 138/76 Code: 8480-6 BMI: 34.2 Code: 73716-4 Heart Rate 1: 71 bpm Height: 5'3" SpO2: 98% Weight: 193 lbs 01/18/2016 Blood Pressure 1: 140/72 Code: 8480-6 BMI: 33.4 Code: 54762-3 Heart Rate 1: 69 bpm Height: 5'3" SpO2: 98% Weight: 188 lbs 8 oz 12/21/2015 Blood Pressure 1: 158/78 Code: 8480-6 BMI: 33.3 Code: 49175-4 Heart Rate 1: 66 bpm Height: 5'3" SpO2: 98% Weight: 188 lbs 08/17/2015 Blood Pressure 1: 132/76 Code: 8480-6 BMI: 30.5 Code: 56094-5 Heart Rate 1: 66 bpm Height: 5'3" Respiratory Rate: 18 bpm SpO2: 97% Weight: 172 lbs 06/23/2015 Blood Pressure 1: 160/80 Code: 8480-6 Blood Pressure 2: 170/86 Code: 8480-6 BMI: 28.3 Code: 39957-1 Heart Rate 1: 96 bpm Height: 5'3" SpO2: 98% Temperature: 37.3 (C ) / 99.1 (F) Weight: 160 lbs 06/21/2015 Blood Pressure 1: 132/78 Code: 8480-6 Heart Rate 1: 106 bpm SpO2: 98% Temperature: 37.3 (C ) / 99.2 (F) Weight: 166 lbs 03/28/2015 Blood Pressure 1: 160/84 Code: 8480-6 Blood Pressure 2: 138/78 Code: 8480-6 BMI: 32.1 Code: 42623-6 Heart Rate 1: 86 bpm Height: 5'3" SpO2: 97% Weight: 181 lbs 07/07/2014 Blood Pressure 1: 138/82 Code: 8480-6 BMI: 32.6 Code: 32664-1 Heart Rate 1: 82 bpm Height: 5'3" SpO2: 96% Weight: 184 lbs 03/24/2014 Blood Pressure 1: 138/64 Code: 8480-6 BMI: 32.4 Code: 34016-7 Heart Rate 1: 72 bpm Height: 5'3" Weight: 183 lbs 01/20/2014 Blood Pressure 1: 149/69 Code: 8480-6 Blood Pressure 2: 170/82 Code: 8480-6 Heart Rate 1: 81 bpm Weight: 183 lbs 12/20/2013 Blood Pressure 1: 150/78 Code: 8480-6 BMI: 32.6 Code: 05638-8 Heart Rate 1: 76 bpm Height: 5'3" Weight: 184 lbs 10/25/2013 Blood Pressure 1: 167/80 Code: 8480-6 BMI: 33.3 Code: 80415-2 Heart Rate 1: 60 bpm Height: 5'3" Weight: 188 lbs 10/19/2013 Blood Pressure 1: 136/78 Code: 8480-6 BMI: 33.1 Code: 34474-3 Height: 5'3" Weight: 187 lbs 05/25/2013 Blood Pressure 1: 134/82 Code: 8480-6 BMI: 33.5 Code: 67637-5 Heart Rate 1: 80 bpm Height: 5'3" Weight: 189 lbs 02/18/2013 Blood Pressure 1: 158/88 Code: 8480-6 Blood Pressure 2: 158/90 Code: 8480-6 BMI: 33.7 Code: 49225-1 Heart Rate 1: 80 bpm Height: 5'3" Weight: 190 lbs 10/01/2012 Blood Pressure 1: 138/62 Code: 8480-6 Heart Rate 1: 76 bpm Weight: 184 lbs 05/18/2012 Blood Pressure 1: 150/82 Code: 8480-6 Blood Pressure 2: 136/84 Code: 8480-6 BMI: 32.1 Code: 89001-5 Heart Rate 1: 71 bpm Height: 5'3" SpO2: 98% Weight: 181 lbs 02/11/2012 Blood Pressure 1: 126/56 Code: 8480-6 Heart Rate 1: 68 bpm Respiratory Rate: 16 bpm Weight: 184 lbs 01/14/2012 Blood Pressure 1: 158/80 Code: 8480-6 BMI: 33.9 Code: 58363-1 Heart Rate 1: 60 bpm Height: 5'3" Respiratory Rate: 16 bpm Weight: 191 lbs 8 oz Functional Status No Functional Status data History of Present Illness Symptom Name Status Resu lt Effective Date Notes Location diffusely 02/17/2019 None Quality acute 02/17/2019 [...] readings at home 02/11/2012 None hypothyroid 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 PATIENT, LEVEL III Diagnosis: Acute laryngopharyngitis[ICD10: J06.0] Diagnosis: Other allergic rhinitis[ICD10: J30.89] Luz Ott MD, [facility] CPT-4: 92908 02/17/2019 ([id number]) 31200 EST. P ATIENT, LEVEL IV Diagnosis: Type 2 diabetes mellitus with diabetic polyneuropathy[ICD10: E11.42] Diagnosis: Pain in left leg[ICD10: M79.605] Diagnosis: Pain in right leg[ICD10: M79.604] Carmelina Ott MD, [facility] CPT-4: 24769 08/27/2018 ([id number]) Tee sweet no charge Diagnosis: Other fatigue[ICD10: R53.83] Carmelina Ott MD, [facility] CPT-4: 01310 06/17/2018 ([id number]) 22050 EST. P ATIENT, LEVEL IV Diagnosis: Essential (primary) hypertension[ICD10: I10] Diagnosis: Hypothyroidism, unspecified[ICD10: E03.9] Diagnosis: Type 2 diabetes mellitus without complications[ICD10: E11.9] Diagnosis: Chronic pain syndrome[ICD10: G89.4] Diagnosis: Vitamin B12 deficiency anemia, unspecified[ICD10: D51.9] Diagnosis: Unsteadiness on feet[ICD10: R26.81] Nicki Ott MD, [facility] CPT-4: 02947 02/24/2018 ([id number]) 45145 EST. P ATIENT, LEVEL IV Diagnosis: Type 2 diabetes mellitus without complications[ICD10: E11.9] Diagnosis: Hypothyroidism, unspecified[ICD10: E03.9] Diagnosis: Essential (primary) hypertension[ICD10: I10] Diagnosis: Pain in left shoulder[ICD10: M25.512] Nicki Ott MD, [facility] CPT-4: 97977 11/03/2017 ([id number]) 16250 EST. P ATIENT, LEVEL III Diagnosis: Essential (primary) hypertension[ICD10: I10] Diagnosis: Major depressive disorder, recurrent, mild[ICD10: F33.0] Diagnosis: Other allergic rhinitis[ICD10: J30.89] Nicki Ott MD, [facility] CPT-4: 52720 08/08/2017 ([id number]) 62235 EST. P ATIENT, LEVEL IV Diagnosis: Hypothyroidism, unspecified[ICD10: E03.9] Diagnosis: Major depressive disorder, recurrent, mild[ICD10: F33.0] Diagnosis: Myalgia[ICD10: M79.1] Diagnosis: Chronic pain syndrome[ICD10: G89.4] Diagnosis: Essential (primary) hypertension[ICD10: I10] Nicki Ott MD, [facility] CPT-4: 78378 07/10/2017 ([id number]) 80695 EST. P ATIENT, LEVEL IV Diagnosis: Essential (primary) hypertension[ICD10: I10] Diagnosis: Atrophy of thyroid (acquired)[ICD10: E03.4] Diagnosis: Sacroiliitis, not elsewhere classified[ICD10: M46.1] Diagnosis: Mixed hyperlipidemia[ICD10: E78.2] Carmelina Ott MD, [facility] CPT- 4: 78645 03/06/2017 ([id number]) 95598 EST. P ATIENT, LEVEL II Diagnosis: Rash and other nonspecific skin eruption[ICD10: R21] Nicki Ott MD, [facility] CPT-4: 08906 03/04/2017 ([id number]) 35779 EST. P ATIENT, LEVEL IV Diagnosis: Type 2 diabetes mellitus without complications[ICD10: E11.9] Diagnosis: Essential (primary) hypertension[ICD10: I10] Diagnosis: Atrophy of thyroid (acquired)[ICD10: E03.4] Carmelina Ott MD, C CPT-4: 73675 10/23/2016 08764 EST. PATIENT, LEVEL III Diagnosis: Other specified hypothyroidism[ICD10: E03.8] Diagnosis: Other specified anemias[ICD10: D64.89] Diagnosis: Pain in thoracic spine[ICD10: M54.6] Luz Ott MD, [facility] CPT- 4: 05002 10/03/2016 39443 EST. PATIENT, LEVEL II Diagnosis: Insect bite (nonvenomous) of other part of head, initial encounter[ICD10: S00.86XA] Nicki Ott MD, [facility] CPT-4: 92650 09/03/2016 ([id number]) 97190 EST. P ATIENT, LEVEL IV Diagnosis: Type 2 diabetes mellitus without complications[ICD10: E11.9] Diagnosis: Hypothyroidism, unspecified[ICD10: E03.9] Diagnosis: Essential (primary) hypertension[ICD10: I10] Carmelina Ott MD, C CPT-4: 89148 08/21/2016 ([id number]) 91940 EST. P ATIENT, LEVEL IV Diagnosis: Essential (primary) hypertension[ICD10: I10] Diagnosis: Supraventricular tachycardia[ICD10: I47.1] Diagnosis: Other fatigue[ICD10: R53.83] Carmelina Ott MD, [facility] CPT-4: 49254 07/24/2016 ([id number]) 53245 EST. P ATIENT, LEVEL IV Diagnosis: Type 2 diabetes mellitus without complications[ICD10: E11.9] Diagnosis: Essential (primary) hypertension[ICD10: I10] Diagnosis: Hypothyroidism, unspecified[ICD10: E03.9] Carmelina Ott MD, C CPT-4: 51790 04/24/2016 ([id number]) 78888 EST. P ATIENT, LEVEL IV Diagnosis: Type 2 diabetes mellitus without complications[ICD10: E11.9] Diagnosis: Type 2 diabetes mellitus with diabetic polyneuropathy[ICD10: E11.42] Carmelina Ott MD, [facility] CPT-4: 57063 01/18/2016 ([id number]) 10722 EST. P ATIENT, LEVEL IV Diagnosis: Urticaria, unspecified[ICD10: L50.9] Diagnosis: Dermatographic urticaria[ICD10: L50.3] Diagnosis: Hypothyroidism, unspecified[ICD10: E03.9] Diagnosis: Type 2 diabetes mellitus without complications[ICD10: E11.9] Diagnosis: Mixed hyperlipidemia[ICD10: E78.2] Diagnosis: Myalgia[ICD10: M79.1] Diagnosis: Essential (primary) hypertension[ICD10: I10] Carmelina Ott MD, [facility] CPT-4: 41611 12/21/2015 ([id number]) 36199 EST. P ATIENT, LEVEL IV Diagnosis: Hypothyroidism, unspecified[ICD10: E03.9] Diagnosis: Essential (primary) hypertension[ICD10: I10] Diagnosis: Urticaria, unspecified[ICD10: L50.9] Carmelina Ott MD, [facility] CPT-4: 39418 08/17/2015 ([id number]) Miscellaneou s no charge Diagnosis: ESSENTIAL HYPERTENSION[ICD9: 401.9] Diagnosis: Elevated temperature[ICD9: 780.60] Diagnosis: EDEMA[ICD9: 782.3] Katja Ott MD, [facility] CPT-4: 88918 06/23/2015 ([id number]) 51489 EST. P ATIENT, LEVEL IV Diagnosis: ESSENTIAL HYPERTENSION[ICD9: 401.9] Diagnosis: TACHYCARDIA[ICD9: 785.0] Diagnosis: Dyspnea[ICD9: 786.09] Katja Ott MD, [facility] CPT-4: 41010 06/21/2015 ([id number]) 19282 EST. P ATIENT, LEVEL III Diagnosis: Sacroiliitis[ICD9: 720.2] Diagnosis: LUMBAGO[ICD9: 724.2] Nicki Ott MD, [facility] CPT-4: 60956 03/28/2015 ([id number]) 49219 EST. P ATIENT, LEVEL IV Diagnosis: HYPOTHYROIDISM[ICD9: 244.9] Diagnosis: ESSENTIAL HYPERTENSION[ICD9: 401.9] Diagnosis: DIABETES TYPE II[ICD9: 250.00] Diagnosis: HYPERLIPIDEMIA[ICD9: 272.4] Diagnosis: Muscle ache[ICD9: 729.1] Carmelina Ott MD, [facility] CPT-4: 19569 07/07/2014 ([id number]) 51222 EST. P ATIENT, LEVEL IV Diagnosis: DIABETES TYPE II[SNOMED: 903256616] Diagnosis: ESSENTIAL HYPERTENSION[SNOMED: 70314889] Diagnosis: HYPOTHYROIDISM[ICD9: 244.9] Carmelina Ott MD, [facility] CPT-4: 95795 03/24/2014 ([id number]) 88853 EST. P ATIENT, LEVEL III Diagnosis: DIABETES TYPE II[SNOMED: 565807217] Diagnosis: ESSENTIAL HYPERTENSION[SNOMED: 44669006] Carmelina Ott MD, [facility] CPT-4: 31176 01/20/2014 ([id number]) 83578 EST. P ATIENT, LEVEL IV Diagnosis: DIABETES TYPE II[SNOMED: 501800806] Diagnosis: ESSENTIAL HYPERTENSION[SNOMED: 84033278] Diagnosis: Peripheral neuropathy, idiopathic[ICD9: 356.9] Carmelina Ott MD, [facility] CPT-4: 82059 12/20/2013 ([id number]) 54518 EST. P ATIENT, LEVEL IV Diagnosis: DIABETES TYPE II[SNOMED: 755402723] Diagnosis: ESSENTIAL HYPERTENSION[SNOMED: 26711708] Diagnosis: Dietary counseling and surveillance[ICD9: V65.3] Carmelina Ott MD, [facility] CPT-4: 64530 10/25/2013 ([id number]) 25297 EST. P ATIENT, LEVEL IV Diagnosis: DIABETES TYPE II[SNOMED: 222512567] Diagnosis: ESSENTIAL HYPERTENSION[SNOMED: 60184343] Diagnosis: HYPOTHYROIDISM[ICD9: 244.9] Carmelina Ott MD, [facility] CPT-4: 64108 10/19/2013 ([id number]) 56547 EST. P ATIENT, LEVEL IV Diagnosis: ESSENTIAL HYPERTENSION[SNOMED: 76297136] Diagnosis: DIABETES TYPE II[SNOMED: 533467597] Diagnosis: HYPOTHYROIDISM[ICD9: 244.9] Carmelina Ott MD, [facility] CPT-4: 50366 05/25/2013 ([id number]) 39556 EST. P ATIENT, LEVEL IV Diagnosis: DIABETES TYPE II[SNOMED: 145331115] Diagnosis: ESSENTIAL HYPERTENSION[SNOMED: 07334000] Diagnosis: HYPOTHYROIDISM[ICD9: 244.9] Carmelina Ott MD, [facility] CPT-4: 15562 02/18/2013 ([id number]) 40613 EST. P ATIENT, LEVEL III Diagnosis: ESSENTIAL HYPERTENSION[SNOMED: 40740730] Carmelina Ott MD, C CPT-4: 93816 10/01/2012 ([id number]) 12138 EST. P ATIENT, LEVEL IV Diagnosis: DIABETES TYPE II[SNOMED: 723834400] Diagnosis: ESSENTIAL HYPERTENSION[SNOMED: 82733183] Carmelina Ott MD, C CPT-4: 90358 05/18/2012 ([id number]) 57794 EST. P ATIENT, LEVEL IV Diagnosis: DIABETES TYPE II[SNOMED: 462939935] Diagnosis: HYPOTHYROIDISM[ICD9: 244.9] Diagnosis: UTI (lower urinary tract infection)[ICD9: 599.0] Diagnosis: Vaginal yeast infection[ICD9: 112.1] Diagnosis: Rectal lump[ICD9: 787.99] Diagnosis: Abdominal bloating[ICD9: 787.3] Carmelina Ott MD, [facility] CPT-4: 66370 02/11/2012 ([id number]) 81767 EST. P ATIENT, LEVEL IV Diagnosis: ESSENTIAL HYPERTENSION[SNOMED: 69748745] Diagnosis: DIABETES TYPE II[SNOMED: 945436719] Diagnosis: HYPERLIPIDEMIA[ICD9: 272.4] Diagnosis: HYPOTHYROIDISM[ICD9: 244.9] Carmelina Ott MD, [facility] CPT-4: 70197 01/14/2012 Plan of Care Planned Activity Notes C odes Status Date Visit Plan: URI - Pt advised to [...] allergy spray. 02/17/2019 Appointment: Luz Latham WPtel: [facility]5 [facility] (15 min) Moderate 02/17/2019 Patient Education: Patient Medication Summary Completed 02/17/2019 Patient Education: Patient Medication Summary Completed 12/31/2018 Appointment: Carmelina Ott WPtel: [facility]5 [facility] (15 min) Moderate 12/28/2018 Patient Education: Patient Medication Summary Completed 12/21/2018 Visit Plan: Diabetes Mellitus - con hooded [...] with Cymbalta. 08/27/2018 Appointment: Carmelina Ott WPtel: [facility]5 [facility] (15 min) Moderate 08/27/2018 Patient Education: Patient Medication Summary Completed 08/27/2018 Appointment: Nurse Visit 06/17/2018 Patient Education: Patient Medication Summary Completed 06/17/2018 Visit Plan: Hypertension - well con hooded [...] Gait instabilty-patient going to do PT at [facility] 02/24/2018 Appointment: Nicki Cabral WPtel: [phone] [phone] (30 min) Complex 02/24/2018 Patient Education: Patient [...] not improved. 11/03/2017 Appointment: Nicki Cabral WPtel: [facility]1 [phone] (30 min) Complex 11/03/2017 Patient Education: Patient [...] spray in the nasal steroid allergy spray. Ufjfcfzknw-ppovsgvt-qvscydys cymbalta 08/08/2017 Appointment: Nicki Cabral WPtel: [phone] [phone] (30 min) Complex 08/08/2017 Patient Education: [...] patient. 07/10/2017 [phone] (15 min) Moderate 07/10/2017 Appointment: Nicki Cabral WPtel: [phone] [phone] (30 min) Complex 07/10/2017 Patient Education: Patient [...] recommended pt to continue with aleve, get [employer] [place] to use on your knee and hip [...] of control. 03/06/2017 Appointment: Carmelina Ott WPtel: [address] [place], [place] [address] (15 min) Moderate 03/06/2017 Patient Education: Patient Medication Summary Completed 03/06/2017 Patient Education: Obesity Completed 03/06/2017 Visit Plan: Rash-very faint-will cu lture the rash today- recommend emollient such as eucerin cream or cerave-call if rash does not resolve or if any worse. Patient verbalized understanding of plan. 03/04/2017 Appointment: Nicki Cabral WPtel: [facility]5 [phone] (15 min) Moderate 03/04/2017 Patient Education: Patient Medication Summary Completed 03/04/2017 Appointment: Carmelina Ott WPtel: [facility]5 [facility] (15 min) Moderate 02/19/2017 Visit Plan: Medicare [...] care surrogate. 11/04/2016 Appointment: Luz Latham [facility]el[phone] [facility] - Annual Wellness Visit 11/04/2016 Patient Education: Patient Medication Summary Completed 11/04/2016 Visit Plan: Hypertension - soraya vasquez - continue with current medications, continue with [...] of control. 10/23/2016 Appointment: [phone] (15 min) Moderate 10/23/2016 Patient Education: Patient [...] of control. 10/03/2016 Appointment: Lu[facility] Latham [facility]el[phone] (30 min) Complex 10/03/2016 Patient Education: Patient Medication Summary Completed 10/03/2016 Patient Education: Obesity Completed 10/03/2016 Visit Plan: Insect bite-right cheek -kenalog injection today in the office-use benadryl cream as needed for itching. Call for s/s of infection-increase redness, warmth, induration. Patient verbalized understanding of plan. 09/03/2016 Appointment: Nick[facility] Cabral [facility]Ptel[phone] [phone] (15 min) Moderate 09/03/2016 Patient Education: Patient [...] control. 08/21/2016 Appointment: [phone] [facility] (15 min) Moderate 08/21/2016 Patient Education: Patient [...] of control. 04/24/2016 Appointment: [phone] (15 min) Moderate 04/24/2016 Patient Education: Patient [...] neuropathy. 01/18/2016 Appointment: Carmelina Ott WPtel: [phone] [facility] (15 min) Moderate 01/18/2016 Patient Education: Patient [...] today. 12/21/2015 Appointment: Carmelina Ott WPtel: [phone] [facility] (15 min) Moderate 12/21/2015 Patient Education: Patient [...] Ott WPtel: [phone] [facility] (15 min) Moderate 08/17/2015 Patient Education: Patient [...] x 2weeks and to talk to her material control associate about potential permanent decrease in her medication if the two week trial of a lower dose has helped to improve her symptoms of muscle aches and joint pain. 07/07/2014 Appointment: [id number] Follow [facility] 07/07/2014 Patient Education: Patient Medication [...] control. 03/24/2014 Appointment: [id number] Follow [facility] 03/24/2014 Patient Education: Patient Medication [...] controlled. 01/20/2014 Appointment: [id number] [facility] 01/20/2014 Patient Education: Patient Medication Summary Completed 01/20/2014 Patient Education: Hypertension Completed 01/20/2014 Appointment: Carmelina Ott WPtel: [phone] [id number] Follow up 01/17/2014 Visit Plan: Diabetes Mellitus - soraida moratayaed - per recent FSBS reports. I have [...] diabetic control. 12/20/2013 Appointment: Carmelina Ott WPtel: [phone] [facility] Other 12/20/2013 Patient Education: Patient Medication Summary [...] WEEK 10/25/2013 [facility]ment[id number] Di[facility] education 10/25/2013 Patient Education: Patient Medication Summary Completed 10/25/2013 Patient Education: Hypertension Completed 10/25/2013 Patient Education: .Amazing charts Garthromario tic meal planning guide Completed 10/25/2013 Visit [...] of control. 10/19/2013 Appointment: Carmelina Ott WPtel: [facility]5 [facility] Follow up 10/19/2013 Patient Education: Patient Medication Summary Completed 10/19/2013 Patient Education: Hypertension Completed 10/19/2013 Appointment: Carmelina Ott WPtel: [facility]5 [facility] Follow up 09/23/2013 Visit Plan: Hypertension - [...] of control. 05/25/2013 Appointment: Carmelina Ott WPtel: [phone] [facility] Follow up 05/25/2013 Patient Education: Patient Medication Summary Completed 05/25/2013 Patient Education: Hypertension Completed 05/25/2013 Appointment: Carmelina Ott WPtel: [phone] [facility] Follow up 05/19/2013 Visit Plan: Diabetes Mellitus [...] 3 months. 02/18/2013 Appointment: Carmelina Ott WPtel: [facility]5 [facility] Follow up 02/18/2013 Patient Education: Patient Medication [...] and resolved. 10/01/2012 Appointment: Carmelina Ott WPtel: [phone] [facility] Other 10/01/2012 Patient Education: Patient Medication Summary [...] for yeast 02/11/2012 Appointment: Carm[facility] Ott [facility]Ptel[facility] pt will comment on meaningful use (from [...] kegel exercises. 01/14/2012 Appointment: Carmel[facility] Ott WPtel[facility] [place] Other 01/14/2012 Patient Education: Patient Medication Summary Completed 01/14/2012 Patient Education: High Blood Pressure: Essential Hypertension Completed 01/14/2012 Referral: Andrew Madera Referral Relationship Referral: Ravi Gaston WPtel: [id number] Referral Relationship Referral: Ella Saldana Referral Relationship [...] femoral nerve entrapment - controlled and resolved. vitamin b12 2000mcg daily folate 1mg daily [...] ick to lip Chest X-Ray at [facility] today We will write referral order for [...] to lip Chest X-Ray at [facility] today We will write referral order for [...] today in the office. Refill hydrocodone . Medicare Exam - to day we [...] her DOPA paperwork for health care surrogate. . URI - Pt advised t o [...] spray in the nasal steroid allergy spray. Monitor you blood hutchins gars as directed [...] PRESSURE AND PULSE READINGS IN 1 WEEK . HTN and Tachycardi a - htn [...] consider increase back to 100mg toprol XL . Hypertension - wel l controlled - [...] months based on previous levels of control. decrease CYMBALTA (D ULOXETINE) TO EVERY OTHER [...] Gait instabilty-patient going to do PT at [facility] . Diabetes Mellitus - controlled - per [...] new diabetic shoes, need greater diabetic control. . Rash-very faint-wi ll culture the rash today-recommend emollient such as eucerin cream or cerave-call if rash does not resolve or if any worse. Patient verbalized understanding of plan. . Diabetes Mellitus - worsening control - [...] are starting to become less controlled. . Urticaria - allerg y testing - [...] to call if symptoms are not improved. CYMBALTA 30MG DAILY . Hypertension - well [...] has been appropriately prescribed for this patient. ZYRTEC (CETIRIZINE) 10MG DAILY FOR ALLERGIES CONTINUE [...] spray in the nasal steroid allergy spray. [id number] cymbalta . Hypertension - wel l controlled - [...] months based on previous levels of control. hold pravastatin x 1 month - if [...] for the patient to continue with Cymbalta. DECREASE THE METOPRO LOL ER TO 50MG [...] levels of control. . Diabetes Mellitus - uncertain of the [...] infection - rx for diflucan for yeast . Diabetes Mellitus - controlled - per [...] in blood pressure readings at home. . Insect bite-right cheek-kenalog injection today in the office-use benadryl cream as needed for itching. Call for s/s of infection- increase redness, warmth, induration. Patient verbalized understanding of plan. Try to avoid salt in take Keep [...] hypertension, management of edema, recent back surgery. . Hypertension - wel l controlled - [...] based on previous levels of control. . Right side pain - The pt [...] months based on previous levels of control. Pt has increase in muscle aches - recommended pt to decrease her pravastatin to 20mg daily x 2weeks and to talk to her material control associate about potential permanent decrease in her medication [...] x 2weeks and to talk to her material control associate about potential permanent decrease in her medication if the two week trial of a lower dose has helped to improve her symptoms of muscle aches and joint pain. Knee and hip pain - recommended pt to continue with aleve, get [employer] [place] to use on your knee and hip [...] recommended pt to continue with aleve, get [employer] [place] to use on your knee and hip [...]
--- OUTSIDE RECORDS SUMMARY | 2020-05-26 12:16 | XMS REPORT | CCD ---
Author Author Aleyda Ott or Organization Carmelina Ott MD, [facility] Address [facility] [place] [address] Phone Care Team Providers Care Internal Medicine Specialist Name Role Phone PP Unavailable CCM Unavailable Summary Purpose Interface Exchange Insurance Providers Payer name Policy type / Coverage type Covered republican ID Effective Begin Date Effective End Date WPS Medicare Part B Medicare Part B [id number] 2013 Unknown [facility] ica Part B [id number] 2013 Unkno wn Family history Brother Diagnosis Age At Onset Heart disease Unknown Sister Diagnosis Age At Onset endometrial cancer Unknown Father Diagnosis Age At Onset Heart disease Unknown Mother Diagnosis Age At Onset Heart disease Unknown Social History Social History Element Codes Description Effective Dates Marital status Unknown W idowed 01/14/[address]: 994079020 Nonsmoker 01/14/2012 Has the patient ever used [...] Instructions Zithromax Z-Sony 250 mg tablet RxNorm: 952154 Tablet(s) PO UD 02/17/2019 No Stop Date Active Synthroid 50 mcg tablet RxNorm: 736174 TAKE ONE TABLET BY MOUTH DAILY (DISCONTI NUE LEVOTHYROXINE) 12/14/2018 12/08/2019 Active metoprolol succinate ER 50 mg tablet,extended release 24 hr RxNorm: 995020 1 Tablet(s) PO QPM TAKE ONE TABLET BY MOUTH EVERY EVENING 10/20/2018 03/18/2019 Active metoprolol succinate ER 50 mg tablet,extended release 24 hr RxNorm: 061054 1 Tablet(s) PO QPM TAKE ONE TABLET BY MOUTH EVERY EVENING 05/08/2018 10/19/2018 Inactive Cymbalta 30 mg capsu le,delayed release RxNorm: 425256 TAKE ONE CAPSULE BY M OUTH DAILY 11/24/2017 11/18/2018 Inactive Synthroid 50 mcg tablet RxNorm: 494353 TAKE ONE TABLET BY MOUTH DAILY (DISCONTI NUE LEVOTHYROXINE) 11/24/2017 12/13/2018 Inactive Voltaren 1 % topical gel RxNorm: 253452 TOP 11/03 No Stop Date Active metoprolol succinate ER 50 mg tablet,extended release 24 hr RxNorm: 500665 1 Tablet(s) PO QPM TAKE ONE TABLET BY MOUTH EVERY EVENING 10/06/2017 05/03/2018 Inactive Synthroid 50 mcg tablet RxNorm: 429294 TAKE ONE TABLET BY MOUTH DAILY (DISCONTI NUE LEVOTHYROXINE) 09/04/2017 11/23/2017 Inactive Cymbalta 30 mg capsu le,delayed release RxNorm: 265521 1 Capsule(s) PO daily 07/10/2017 10/07/2017 In active metoprolol succinate ER 50 mg tablet,extended release 24 hr RxNorm: 723557 TAKE ONE TABLET BY MOUTH EVERY EVENING 03/06/2017 10/01/2017 Inactive Kenalog 40 mg/mL marguerite pension for injection RxNorm: 2421592 Milliliter(s) Inj 09/03/2016 09/03/2016 In active tramadol 50 mg tablet RxNorm: 570493 1 Tablet(s) PO Q4-6H as needed 08/21/2016 No Stop Date Active Synthroid 50 mcg tablet RxNorm: 489164 1 Tablet(s) PO daily 08/21/2016 08/15/2017 Inactive DC levothyroxine metoprolol succinate ER 25 mg tablet,extended release 24 hr RxNorm: 195491 1 Tablet(s) PO QAM 07/24/2016 08/20/2016 Inactive metoprolol succinate ER 50 mg tablet,extended release 24 hr RxNorm: 969493 1 Tablet(s) PO QPM 07/24/2016 02/18/2017 Inactive Synthroid 50 mcg tablet RxNorm: 970989 1 Tablet(s) PO daily 06/10/2016 08/20/2016 Inactive DC levothyroxine Synthroid 50 mcg tablet RxNorm: 750714 1 Tablet(s) PO daily 05/16/2016 06/09/2016 Inactive hydrocortisone 2.5 % topical cream RxNorm: 903014 1 Application TOP TID 05/08/2016 08/05/2016 In active hydrocortisone 2.5 % topical cream RxNorm: 897381 1 Application TOP TID 05/08/2016 05/07/2016 In active betamethasone diprop ionate 0.05 % topical cream RxNorm: 846794 1 Application TOP BID as needed 04/24/2016 05/07/2016 Inactive betamethasone diprop ionate 0.05 % topical cream RxNorm: 065509 1 Application TOP BID as needed 04/24/2016 04/23/2016 Inactive loratadine 10 mg tablet RxNorm: 303205 1 Tablet(s) PO daily 01/18/2016 05/16/2016 Inactive loratadine 10 mg dis integrating tablet RxNorm: 637568 1 Tablet(s) PO daily 01/18/2016 01/17/2016 In active Synthroid 50 mcg tablet RxNorm: 431125 1 Tablet(s) PO daily 01/01/2016 04/29/2016 Inactive Synthroid 50 mcg tablet RxNorm: 598631 1 Tablet(s) PO daily 01/01/2016 12/31/2015 Inactive prednisone 20 mg tablet RxNorm: 916034 3 Tablet(s) PO daily 09/11/2015 09/15/2015 Inactive prednisone 20 mg tablet RxNorm: 310146 3 Tablet(s) PO daily 09/11/2015 09/10/2015 Inactive Abreva 10 % topical cream RxNorm: 515662 1 Application TOP 5x daily 06/23/2015 07/12/2015 Inactive Apply to lip lesions 5 times per day for 10 days prednisone 20 mg tablet RxNorm: 431031 2 Tablet(s) PO daily x3 06/12/2015 06/14/2015 Inactive prednisone 20 mg tablet RxNorm: 151042 2 Tablet(s) PO daily x3 06/12/2015 06/11/2015 Inactive Kenalog 40 mg/mL marguerite pension for injection RxNorm: 0767948 1 Milliliter(s) Inj 03/28/2015 03/28/2015 In active hydrocodone 7.5 mg-a cetaminophen 325 mg tablet RxNorm: 700537 1 Tablet(s) PO Q4-6H as needed for back pain 03/28/2015 06/11/2015 Inactive Synthroid 50 mcg tablet RxNorm: 628201 1 Tablet(s) PO daily TAKE ONE TABLET BY MOUTH EVERY DAY 12/12/2014 12/11/2014 Inactive Synthroid 50 mcg tablet RxNorm: 143106 TAKE ONE TABLET BY MOUTH EVERY DAY 12/12/2014 12/20/2015 In active hydrocodone 7.5 mg-a cetaminophen 325 mg tablet RxNorm: 430515 1 Tablet(s) PO Q4-6H as needed for back pain 07/07/2014 09/04/2014 Inactive Synthroid 50 mcg tablet RxNorm: 532553 1 Tablet(s) PO daily TAKE ONE TABLET BY MOUTH EVERY DAY 07/07/2014 12/11/2014 Inactive Synthroid 50 mcg tablet RxNorm: 189516 TAKE ONE TABLET BY MOUTH EVERY DAY 06/06/2014 06/10/2014 In active Synthroid 50 mcg tablet RxNorm: 788247 TAKE ONE TABLET BY MOUTH EVERY DAY 06/06/2014 06/10/2014 In active Singulair 10 mg tablet RxNorm: 287931 Tablet(s) PO TAKE ONE TABLET BY MOUTH EV FCO03/03/2014 06/22/2015 Inactive hydrocodone 5 mg-kristofer taminophen 500 mg tablet RxNorm: 666629 Tablet(s) PO PRN 01/20/2014 07/06/2014 In active Synthroid 50 mcg tablet RxNorm: 593752 1 Tablet(s) PO daily name brand only 12/14/2013 12/13/2013 In active name brand only Synthroid 50 mcg tablet RxNorm: 978662 1 Tablet(s) PO daily name brand only 12/14/2013 06/05/2014 In active name brand only Januvia 50 mg tablet RxNorm: 892426 1 Tablet(s) PO daily 03/24/2013 05/25/2013 Inactive Singulair 10 mg tablet RxNorm: 863990 Tablet(s) PO TAKE ONE TABLET BY MOUTH FCO03/02/2013 03/02/2014 Inactive levothyroxine 50 mcg tablet RxNorm: 330178 1 Tablet(s) PO daily 02/03/2013 02/02/2013 Inactive levothyroxine 50 mcg tablet RxNorm: 586934 1 Tablet(s) PO daily 02/03/2013 10/18/2013 Inactive levothyroxine 25 mcg tablet RxNorm: 170144 1 /2 Tablet(s) PO daily 01/29/2013 02/02/2013 Inactive one and one half tab daily (1 /2)may zhang ve 90 day supply if cheaper levothyroxine 25 mcg tablet RxNorm: 084399 Tablet(s) PO TAKE 1 A ND 1/2 TABLETS ONCE DAILY 11/02/2012 05/25/2013 Inactive glipizide 5 mg tablet RxNorm: 664573 Tablet(s) PO TAKE ONE-HALF TABLET BY ADÁN TH EVERY DAY 10/19/2012 05/25/2013 Inactive metformin 500 mg tablet RxNorm: 569339 Tablet(s) PO TAKE ONE-HALF TABLET BY ADÁN TH TWICE A DAY 10/19/2012 05/25/2013 Inactive Voltaren 1 % Topical Gel RxNorm: 469166 4 Gram(s) TOP QID 10/01/2012 12/25/2015 Inactive levothyroxine 25 mcg tablet RxNorm: 475276 1 1/2 Tablet(s) PO daily 08/03/2012 01/28/2013 Inactive one and one half tab daily (1 2)may zhang ve 90 day supply if cheaper metformin 500 mg tablet RxNorm: 156140 1/2 Tablet(s) PO BID 03/03/2012 08/29/2012 Inactive glipizide 5 mg Tab RxNorm: 335471 1/2 Tablet(s) PO daily 03/03/2012 03/02/2012 Inactive metformin 500 mg Tab RxNorm: 248324 1/2 Tablet(s) PO BID 03/03/2012 03/02/2012 Inactive glipizide 5 mg tablet RxNorm: 538768 1/2 Tablet(s) PO daily 03/03/2012 08/29/2012 Inactive Singulair 10 mg tablet RxNorm: 145610 1 Tablet(s) PO daily 03/02/2012 03/01/2013 Inactive Bactrim DS 800 mg-16 0 mg Tab RxNorm: 289874 1 Tablet(s) PO BID 02/11/2012 02/20/2012 Inactive fluconazole 150 mg Tab RxNorm: 845130 1 Tablet(s) PO daily 02/11/2012 05/25/2013 Inactive levothyroxine 25 mcg tablet RxNorm: 912147 1 1/2 Tablet(s) PO daily 01/15/2012 07/12/2012 Inactive one and one half tab daily (1 1/2)may zhang ve 90 day supply if cheaper levothyroxine 100 mc g Tab RxNorm: 352873 1 Tablet(s) PO daily 09/04/2011 01/14/2012 Inactive Singulair 10 mg Tab RxNorm: 220866 1 Tablet(s) PO daily 09/04/2011 03/01/2012 Inactive zinc lozenges RxNorm: 1 PO QHS No Start Date Active Vitamin B-6 100 mg t ablet RxNorm: 910811 2 Tablet(s) PO QPM No Start Date Active Zinc Chelate 15 mg t ablet RxNorm: 1 Tablet(s) PO daily with 1 ,000 mg calcium No Start Date Active Vitamin D3 2,000 uni t tablet RxNorm: 506790 1 Tablet(s) PO QPM No Start Date Active Artificial Tears RxNorm: 780521 ophthalmic No Start Date Active pravastatin 20 mg ta blet RxNorm: 467938 1 Tablet(s) PO QHS No Start Date Active Nitrostat 0.4 mg Sub lingual Tab RxNorm: 589789 Tablet(s) SL PRN No Start Date Active Vitamin C 100 mg tablet RxNorm: 340646 1 Tablet(s) PO QHS No Start Date Active Fish Oil 360 mg-1,20 0 mg capsule RxNorm: 085565 1 Capsule(s) PO daily No Start Date Active latanoprost 0.005 % eye drops RxNorm: 170951 1 Drop(s) OPH each ey e QHS No Start Date Active Vitamin B-12 1,000 m cg tablet RxNorm: 893833 1 Tablet(s) PO daily No Start Date Active Leeton Saline nasal RxNorm: 9863 nasal No Start Date Active Flintstones Complete oral RxNorm: oral No Start D ate Active aspirin 81 mg Tab, D elayed Release RxNorm: 888412 1 Tablet(s) PO daily No Start Date Active vitamin D3-menaquino ne 7 Oral RxNorm: Oral No Start D ate 12/26/2015 Inactive vitamin B6-vitamin E -magnesium Tab RxNorm: 1 Tablet(s) PO daily No Start Date 12/26/2015 Inactive Zinc Chelate 15 mg t ablet RxNorm: 1 Tablet(s) PO daily with 4 00 mg Magnesium No Start Date 10/23/2016 Inactive pravastatin 20 mg ta blet RxNorm: 275560 1 Tablet(s) PO daily No Start Date 01/19/2014 Inactive Zocor 20 mg Tab RxNorm: 744901 1 Tablet(s) PO QHS No Start Date 05/25/2013 Inactive Plavix 75 mg tablet RxNorm: 658756 1 Tablet(s) PO daily No Start Date 03/28/2015 Inactive metoprolol succinate ER 100 mg tablet,extended release 24 hr RxNorm: 860995 1 Tablet(s) PO daily No Start Date 07/23/2016 Inactive Januvia 100 mg Tab RxNorm: 304769 1 Tablet(s) PO daily No Start Date 05/25/2013 Inactive tramadol 50 mg tablet RxNorm: 350905 1 Tablet(s) PO as needed No Start Date 08/20/2016 Inactive Flintstones Complete Oral RxNorm: Oral No Start D ate 12/26/2015 Inactive Plavix 75 mg Tab RxNorm: 772061 1 Tablet(s) PO every other day No Start Date 05/25/2013 Inactive Accu-Chek Compact Te st strips RxNorm: 1 test Miscellaneous BID No Start Date 10/22/2016 Inactive accu-chek compact plus Accu-Chek Softclix L ancets RxNorm: 1 test Miscellaneous daily No Start Date 10/22/2016 Inactive Fish Oil 1,000 mg Cap RxNorm: 1 Capsule(s) PO daily No Start Date 12/26/2015 Inactive Januvia 50 mg tablet RxNorm: 173442 Tablet(s) PO No Start Date 03/23/2013 Inactive hydrocodone 5 mg-kristofer taminophen 500 mg tablet RxNorm: 851796 Tablet(s) PO PRN No Start Date 01/19/2014 Inactive Synthroid 50 mcg tablet RxNorm: 291169 1 Tablet(s) PO daily name brand only No Start Date 12/13/2013 Inactive name brand only levothyroxine 25 mcg Tab RxNorm: 594584 1 Tablet(s) PO daily 1 tab q morning on empty stomach No Start Date 01/13/2012 Inactive metoprolol succinate ER 50 mg 24 hr Tab RxNorm: 106158 1 Tablet(s) PO daily No Start Date 12/25/2015 Inactive pravastatin 40 mg ta blet RxNorm: 858565 Tablet(s) PO No Start Date 12/25/2015 Inactive latanoprost Opht RxNorm: Ophthalmic No Start Date 12/26/2015 Inactive cranberry Oral RxNorm: Oral No Start Date 06/22/2015 Inactive Medication Administered Medication Codes Instruc tions Start Date Status Kenalog 40 mg/mL suspension for injection RxNorm: 6771371 Milliliter 09/03/2016 No longer Active Kenalog 40 mg/mL suspension for injection RxNorm: 4484687 1Milliliter 03/28/2015 N o longer Active Immunizations [...] Ord30 C/HDL 3.5 Ratio 12/30/2018 Free T4 Biw958 FREE T4 0.64 ng/dL 12/30/2018 %Hba1C Qpa941 % HbA1c 47785-5 6.9 % 12/30/2018 %Hba1C Fmi458 Gluc Ave 151 mg/dL 12/30/2018 Comp Metabolic Nyq081 NA 140 mEq/L 12/30/2018 Comp Metabolic Qwb943 K 4.5 mEq/L 12/30/2018 Comp Metabolic Ezu415 CL 107 mEq/L 12/30/2018 Comp Metabolic Gbb976 CO2 25.0 mEq/L 12/30/2018 Comp Metabolic Hcl990 AN ION GAP 13 12/30/2018 Comp Metabolic Ixd219 GL UCOSE 117 mg/dL 12/30/2018 Comp Metabolic Lik593 Cr eat 0.8 mg/dL 12/30/2018 Comp Metabolic Gav957 eG FR 79 ml/min/1.73m2 12/30 Comp Metabolic Axr246 BUN 17 mg/dL 12/30/2018 Comp Metabolic Qxq554 B/ C Ratio 22.4 Ratio 12/30/2018 Comp Metabolic Dkr728 CA LCIUM 9.6 mg/dL 12/30/2018 Comp Metabolic Lyv737 AL K PHOS 69 U/L 12/30/2018 Comp Metabolic Jti525 T(SGOT) 23 U/L 12/30/2018 Comp Metabolic Vzw060 AL T(SGPT) 30 U/L 12/30/2018 Comp Metabolic Ibn401 BI LI T 0.4 mg/dL 12/30/2018 Comp Metabolic Guy365 AL BUMIN 4.2 g/dL 12/30/2018 Comp Metabolic Gfp856 TP RO 6.6 g/dL 12/30/2018 Comp Metabolic Bdj821 GL OB 2.4 g/dL 12/30/2018 Comp Metabolic Hku596 A/ G Ratio 1.8 Ratio 12/30/2018 Comp Metabolic Eux692 Os mo 282 mOsmo 12/30/2018 Tsh Ord6 [...] 31.0 pg 12/30/2018 Cbc With Differential Ord2 [place]% 8.1 % 12/30/2018 Cbc With Differential Ord2 [...] 1.83 K/ul 12/30/2018 Cbc With Differential Ord2 [place] ABS# 0.5 K/ul 12/30/2018 Cbc With Differential Ord2 Eos ABS# 0.1 K/ul 12/30/2018 Cbc With Differential Ord2 Baso ABS# 0.0 K/ul 12/30/2018 Comp Metabolic Iml969 NA 138 mEq/L 02/24/2018 Comp Metabolic Ukb200 K 4.3 mEq/L 02/24/2018 Comp Metabolic Red592 CL 103 mEq/L 02/24/2018 Comp Metabolic Gtz278 CO2 27.0 mEq/L 02/24/2018 Comp Metabolic Xkc636 AN ION GAP 12 02/24/2018 Comp Metabolic Raq079 GL UCOSE 96 mg/dL 02/24/2018 Comp Metabolic Aul530 Cr eat 0.7 mg/dL 02/24/2018 Comp Metabolic Mdn336 eG FR 86 ml/min/1.73m2 02/24 Comp Metabolic Ibr435 BUN 17 mg/dL 02/24/2018 Comp Metabolic Lla457 B/ C Ratio 23.9 Ratio 02/24/2018 Comp Metabolic Nml533 CA LCIUM 9.2 mg/dL 02/24/2018 Comp Metabolic Eaq731 AL K PHOS 67 U/L 02/24/2018 Comp Metabolic Fyc358 T(SGOT) 25 U/L 02/24/2018 Comp Metabolic Ypn982 AL T(SGPT) 25 U/L 02/24/2018 Comp Metabolic Uzg514 BI LI T 0.3 mg/dL 02/24/2018 Comp Metabolic Opb702 AL BUMIN 3.9 g/dL 02/24/2018 Comp Metabolic Pqy503 TP RO 6.5 g/dL 02/24/2018 Comp Metabolic Ndb401 GL OB 2.6 g/dL 02/24/2018 Comp Metabolic Ijo107 A/ G Ratio 1.5 Ratio 02/24/2018 Comp Metabolic Ppo232 Os mo 277 mOsmo 02/24/2018 Free T4 And283 FREE T4 0.71 ng/dL 02/24/2018 Tsh Ord6 TSH (3rd IS) 2.53 uIU/mL 02/24/2018 B12 Icq885 B12 360.00 pg/ml 02/24/2018 Cbc With Differential [...] 30.4 pg 02/24/2018 Cbc With Differential Ord2 [place]% 11.3 % 02/24/2018 Cbc With Differential Ord2 [...] 2.18 K/ul 02/24/2018 Cbc With Differential Ord2 [place] ABS# 0.8 K/ul 02/24/2018 Cbc With Differential Ord2 Eos ABS# 0.2 K/ul 02/24/2018 Cbc With Differential Ord2 Baso ABS# 0.0 K/ul 02/24/2018 %Hba1C Fcg242 % HbA1c 71106-8 6.5 % 02/24/2018 %Hba1C Fha745 Gluc Ave 140 mg/dL 02/24/2018 Tsh Ord6 hTSH II 3.98 uIU/mL 11/03/2017 Comp Metabolic Yfc138 NA 139 mEq/L 11/03/2017 Comp Metabolic Vwe893 K 4.1 mEq/L 11/03/2017 Comp Metabolic Rdr262 CL 102 mEq/L 11/03/2017 Comp Metabolic Bml186 CO2 28.0 mEq/L 11/03/2017 Comp Metabolic Acb571 AN ION GAP 13 11/03/2017 Comp Metabolic Afw270 GL UCOSE 96 mg/dL 11/03/2017 Comp Metabolic Hab238 Cr eat 0.8 mg/dL 11/03/2017 Comp Metabolic Tmn916 eG FR 80 ml/min/1.73m2 11/03 Comp Metabolic Kub659 BUN 16 mg/dL 11/03/2017 Comp Metabolic Rsa287 B/ C Ratio 21.3 Ratio 11/03/2017 Comp Metabolic Ipk384 CA LCIUM 9.5 mg/dL 11/03/2017 Comp Metabolic Jmt806 AL K PHOS 73 U/L 11/03/2017 Comp Metabolic Ygp075 T(SGOT) 26 U/L 11/03/2017 Comp Metabolic Orf771 AL T(SGPT) 22 U/L 11/03/2017 Comp Metabolic Yaz052 BI LI T 0.4 mg/dL 11/03/2017 Comp Metabolic Yla191 AL BUMIN 4.1 g/dL 11/03/2017 Comp Metabolic Zyb842 TP RO 6.3 g/dL 11/03/2017 Comp Metabolic Ncr499 GL OB 2.2 g/dL 11/03/2017 Comp Metabolic Uhl409 A/ G Ratio 1.9 Ratio 11/03/2017 Comp Metabolic Doz413 Os mo 279 mOsmo 11/03/2017 Cbc With [...] 29.8 pg 11/03/2017 Cbc With Differential Ord2 [place]% 10.4 % 11/03/2017 Cbc With Differential Ord2 [...] 2.18 K/ul 11/03/2017 Cbc With Differential Ord2 [place] ABS# 0.7 K/ul 11/03/2017 Cbc With Differential Ord2 Eos ABS# 0.1 K/ul 11/03/2017 Cbc With Differential Ord2 Baso ABS# 0.0 K/ul 11/03/2017 Free T4 Cgh646 FREE T4 0.75 ng/dL 11/03/2017 %Hba1C Tps444 % HbA1c 69382-2 6.4 % 11/03/2017 %Hba1C Mxi625 Gluc Ave 137 mg/dL 11/03/2017 Tsh Ord6 hTSH II 1.77 uIU/mL 03/04/2017 Lipid Ord30 CHOL 125 mg/dL 03/04/2017 Lipid Ord30 HDL 38.0 mg/dl 03/04/2017 Lipid Ord30 TRIG 144 mg/dL 03/04/2017 Lipid Ord30 LDL 58 mg/dL 03/04/2017 Lipid Ord30 C/HDL 3.3 Ratio 03/04/2017 Microalbumin Ioh202 Micr oAlb <0.7 mg/dL 03/04/2017 Comp Metabolic Gcu560 NA 139 mEq/L 03/04/2017 Comp Metabolic Aol452 K 4.4 mEq/L 03/04/2017 Comp Metabolic Hcs325 CL 104 mEq/L 03/04/2017 Comp Metabolic Fjl793 CO2 27.0 mEq/L 03/04/2017 Comp Metabolic Hhh797 AN ION GAP 12 03/04/2017 Comp Metabolic Vmp144 GL UCOSE 95 mg/dL 03/04/2017 Comp Metabolic Wid360 Cr eat 0.8 mg/dL 03/04/2017 Comp Metabolic Ius613 eG FR 79 ml/min/1.73m2 03/04 Comp Metabolic Yaq310 BUN 13 mg/dL 03/04/2017 Comp Metabolic Vxm395 B/ C Ratio 17.1 Ratio 03/04/2017 Comp Metabolic Ttk755 CA LCIUM 9.2 mg/dL 03/04/2017 Comp Metabolic Nin490 AL K PHOS 62 U/L 03/04/2017 Comp Metabolic Uhc495 T(SGOT) 22 U/L 03/04/2017 Comp Metabolic Prc724 AL T(SGPT) 22 U/L 03/04/2017 Comp Metabolic Yep813 BI LI T 0.5 mg/dL 03/04/2017 Comp Metabolic Beq343 AL BUMIN 3.8 g/dL 03/04/2017 Comp Metabolic Tbo825 TP RO 6.2 g/dL 03/04/2017 Comp Metabolic Git808 GL OB 2.4 g/dL 03/04/2017 Comp Metabolic Gjy027 A/ G Ratio 1.6 Ratio 03/04/2017 Comp Metabolic Uav024 Os mo 277 mOsmo 03/04/2017 %Hba1C Hka398 % HbA1c 35761-9 6.2 % 03/04/2017 %Hba1C Exx281 Gluc Ave 131 mg/dL 03/04/2017 Cbc With [...] 30.6 pg 03/04/2017 Cbc With Differential Ord2 [place]% 9.6 % 03/04/2017 Cbc With Differential Ord2 [...] 1.84 K/ul 03/04/2017 Cbc With Differential Ord2 [place] ABS# 0.6 K/ul 03/04/2017 Cbc With Differential Ord2 Eos ABS# 0.1 K/ul 03/04/2017 Cbc With Differential Ord2 Baso ABS# 0.0 K/ul 03/04/2017 B12 Bfl403 B12 440.00 pg/ml 10/04/2016 Free T4 Cdx287 FREE T4 0.77 ng/dL 10/04/2016 Cbc With [...] 30.6 pg 10/04/2016 Cbc With Differential Ord2 [place]% 8.0 % 10/04/2016 Cbc With Differential Ord2 [...] 2.77 K/ul 10/04/2016 Cbc With Differential Ord2 [place] ABS# 0.7 K/ul 10/04/2016 Cbc With Differential Ord2 Eos ABS# 0.1 K/ul 10/04/2016 Cbc With Differential Ord2 Baso ABS# 0.0 K/ul 10/04/2016 Comp Metabolic Aay478 NA 136 mEq/L 10/04/2016 Comp Metabolic Oma451 K 4.0 mEq/L 10/04/2016 Comp Metabolic Sif806 CL 100 mEq/L 10/04/2016 Comp Metabolic Shs503 CO2 29.0 mEq/L 10/04/2016 Comp Metabolic Vml530 AN ION GAP 11 10/04/2016 Comp Metabolic Bud188 GL UCOSE 92 mg/dL 10/04/2016 Comp Metabolic Jmd449 Cr eat 0.7 mg/dL 10/04/2016 Comp Metabolic Xsz831 eG FR 85 ml/min/1.73m2 10/04 Comp Metabolic Sth058 BUN 17 mg/dL 10/04/2016 Comp Metabolic Svj882 B/ C Ratio 23.6 Ratio 10/04/2016 Comp Metabolic Pog152 CA LCIUM 9.7 mg/dL 10/04/2016 Comp Metabolic Mvu516 AL K PHOS 86 U/L 10/04/2016 Comp Metabolic Nge795 T(SGOT) 23 U/L 10/04/2016 Comp Metabolic Jij825 AL T(SGPT) 27 U/L 10/04/2016 Comp Metabolic Nle467 BI LI T 0.3 mg/dL 10/04/2016 Comp Metabolic Icn141 AL BUMIN 4.3 g/dL 10/04/2016 Comp Metabolic Idx145 TP RO 6.9 g/dL 10/04/2016 Comp Metabolic Clv777 GL OB 2.6 g/dL 10/04/2016 Comp Metabolic Xyc303 A/ G Ratio 1.6 Ratio 10/04/2016 Comp Metabolic Xom960 Os mo 273 mOsmo 10/04/2016 Tsh Ord6 hTSH II 3.75 uIU/mL 10/04/2016 Free T4 Xow583 FREE T4 0.68 ng/dL 05/17/2016 Tsh Ord6 hTSH II 3.31 uIU/mL 05/17/2016 Alyssa Reflex Profile [id number] ALYSSA (MARCELLA) SCREEN NONE DETECTED 016 Tsh Ord6 hTSH II 6.78 uIU/mL 12/22/2015 C-Reactive Protein Qnt Crqnt CRP 0.2 mg/dl 12/22/2015 Sed Rate Ord21 ESR 15 mm/hr 12/22/2015 Free T4 Fyi797 FREE T4 0.70 ng/dL 12/22/2015 Comp Metabolic Mpd540 NA 138 mEq/L 12/22/2015 Comp Metabolic Imx060 K 4.3 mEq/L 12/22/2015 Comp Metabolic Ahi177 CL 102 mEq/L 12/22/2015 Comp Metabolic Ffi981 CO2 28.0 mEq/L 12/22/2015 Comp Metabolic Nhv287 AN ION GAP 12 12/22/2015 Comp Metabolic Hxs739 GL UCOSE 114 mg/dL 12/22/2015 Comp Metabolic Gbf900 Cr eat 0.8 mg/dL 12/22/2015 Comp Metabolic Lwh636 eG FR 80 ml/min/1.73m2 12/22 Comp Metabolic Gmi636 BUN 18 mg/dL 12/22/2015 Comp Metabolic Ulj364 B/ C Ratio 23.7 Ratio 12/22/2015 Comp Metabolic Myz648 CA LCIUM 9.4 mg/dL 12/22/2015 Comp Metabolic Puh358 AL K PHOS 75 U/L 12/22/2015 Comp Metabolic Kaz836 T(SGOT) 19 U/L 12/22/2015 Comp Metabolic Ziq963 AL T(SGPT) 20 U/L 12/22/2015 Comp Metabolic Vog492 BI LI T 0.5 mg/dL 12/22/2015 Comp Metabolic Bqr340 AL BUMIN 3.9 g/dL 12/22/2015 Comp Metabolic Irv415 TP RO 6.2 g/dL 12/22/2015 Comp Metabolic Glu511 GL OB 2.3 g/dL 12/22/2015 Comp Metabolic Qxo070 A/ G Ratio 1.7 Ratio 12/22/2015 Comp Metabolic Dqk969 Os mo 278 mOsmo 12/22/2015 Ra Factor Geu140 RA FACT OR <10 IU/ml 12/22/2015 Lipid Ord30 CHOL 150 mg/dL 12/22/2015 Lipid Ord30 HDL 49.0 mg/dl 12/22/2015 Lipid Ord30 TRIG 108 mg/dL 12/22/2015 Lipid Ord30 LDL 79 mg/dL 12/22/2015 Lipid Ord30 C/HDL 3.1 Ratio 12/22/2015 %Hba1C Qfj096 % HbA1c 86456-0 6.2 % 12/22/2015 %Hba1C Uiw239 Gluc Ave 131 mg/dL 12/22/2015 Cbc With [...] 30.0 pg 12/22/2015 Cbc With Differential Ord2 [place]% 7.5 % 12/22/2015 Cbc With Differential Ord2 [...] 2.06 K/ul 12/22/2015 Cbc With Differential Ord2 [place] ABS# 0.4 K/ul 12/22/2015 Cbc With Differential [...] Ord2 RDW 14.2 % 06/21/2015 Comp Metabolic Cgd967 NA 135 mEq/L 06/21/2015 Comp Metabolic Ico996 K 4.2 mEq/L 06/21/2015 Comp Metabolic Rvu496 CL 99 mEq/L 06/21/2015 Comp Metabolic Vor268 CO2 27.0 mEq/L 06/21/2015 Comp Metabolic Amg974 AN ION GAP 13 06/21/2015 Comp Metabolic Bve834 GL UCOSE 94 mg/dL 06/21/2015 Comp Metabolic Mpd896 Cr eat 0.8 mg/dL 06/21/2015 Comp Metabolic Tbp499 eG FR 81 ml/min/1.73m2 06/21 Comp Metabolic Rtl355 BUN 16 mg/dL 06/21/2015 Comp Metabolic Ten223 B/ C Ratio 21.3 Ratio 06/21/2015 Comp Metabolic Uil917 CA LCIUM 9.4 mg/dL 06/21/2015 Comp Metabolic Hdq491 AL K PHOS 164 U/L 06/21/2015 Comp Metabolic Zsw821 T(SGOT) 22 U/L 06/21/2015 Comp Metabolic Qpn374 AL T(SGPT) 23 U/L 06/21/2015 Comp Metabolic Fsq902 BI LI T 0.4 mg/dL 06/21/2015 Comp Metabolic Yrj404 AL BUMIN 4.0 g/dL 06/21/2015 Comp Metabolic Rmu645 TP RO 6.6 g/dL 06/21/2015 Comp Metabolic Fpb832 GL OB 2.6 g/dL 06/21/2015 Comp Metabolic Dgp888 A/ G Ratio 1.5 Ratio 06/21/2015 Comp Metabolic Eeb628 Os mo 271 mOsmo 06/21/2015 URINALYSIS NONAUTO W/O SCOPE 57282 Specific Calvin 1.010 DateTime(Free Text in ) URINALYSIS NONAUTO W/O SCOPE 83938 PH 6.0 DateTime(Free [place] t in ) URINALYSIS NONAUTO W/O SCOPE 03228 GLUCOSE NEG DateTime(Free [place] t in ) URINALYSIS NONAUTO W/O SCOPE 61144 Protein NEG DateTime(Free [place] t in ) URINALYSIS NONAUTO W/O SCOPE 37871 Blood TRACE DateTime(Free T ext in ) URINALYSIS NONAUTO W/O SCOPE 23507 Bilirubin NEG DateTime(Free [place] t in ) URINALYSIS NONAUTO W/O SCOPE 24644 Ketones NEG DateTime(Free Te xt in ) URINALYSIS NONAUTO W/O SCOPE 99358 Urobilinogen NEG DateTime(Free Text in Apr) URINALYSIS NONAUTO W/O SCOPE 26954 Nitrite NEG DateTime(Free [place] t in Aprima) URINALYSIS NONAUTO W/O SCOPE 50965 Leukocytes NEG DateTime(Free Text in Aprima) UA 26456 Specific Calvin 1.020 DateTime(Free Text in ) UA 65117 PH 5.0 DateTime(Free Text in Apr ) UA 39809 Protein neg DateTime(Free Text in Aprima ) UA 51210 Blood neg DateTime(Free Text in Aprima ) UA 97925 Bilirubin neg DateTime(Free Text in Aprima ) UA 25992 Ketones neg DateTime(Free Text in Aprima ) UA 54258 Urobilinogen 0.2 DateTime(Free Text in ) UA 78810 Nitrite neg DateTime(Free Text in ) UA 27985 Leukocytes neg DateTime(Free Text in ) Review [...] time 02/17/2019 None Full Exam - General [facility] Constitutional general appearance Overall: well developed 08/27/2018 [...] 09/03/2016 URINALYSIS NONAUTO W /O SCOPE CPT-4: 47254 06/23/2015 TRIAMCINOLONE ACET I [place] NOS CPT-4: J3301 03/28/2015 FOOT EXAM PERFORMED SNOMED CT: [id number] CPT-4: 2028F 12/20/2013 PRESCRIP TRANSMIT A ERX SY CPT-4: G8553 10/25/2013 PRESCRIP TRANSMIT A ERX SY CPT-4: G8553 10/01/2012 URINALYSIS NONAUTO W /O SCOPE CPT-4: 65907 02/11/2012 PRESCRIP TRANSMIT A ERX SY CPT-4: G8553 02/11/2012 Vital Signs Date Vital 02/17/2019 Blood Pressure 1: 140/72 Code: 8480-6 Heart Rate 1: 82 bpm Height: SpO2: 97% Temperature: 36.8 (C ) / 98.2 (F) Weight: 08/27/2018 Blood Pressure 1: 150/72 Code: 8480-6 BMI: 33.8 Code: 26468-1 Heart Rate 1: 77 bpm Height: 5'3" SpO2: 98% Weight: 191 lbs 02/24/2018 Blood Pressure 1: 140/72 Code: 8480-6 BMI: 33.5 Code: 63141-4 Heart Rate 1: 78 bpm Height: 5'3" SpO2: 98% Weight: 189 lbs 11/03/2017 Blood Pressure 1: 140/72 Code: 8480-6 BMI: 33.2 Code: 69022-7 Heart Rate 1: 71 bpm Height: 5'3" SpO2: 98% Weight: 187 lbs 8 oz 08/08/2017 Blood Pressure 1: 140/66 Code: 8480-6 BMI: 33.1 Code: 39205-1 Heart Rate 1: 73 bpm Height: 5'3" SpO2: 97% Weight: 187 lbs 07/10/2017 Blood Pressure 1: 144/74 Code: 8480-6 BMI: 33.5 Code: 05275-5 Heart Rate 1: 78 bpm Height: 5'3" SpO2: 94% Weight: 189 lbs 03/06/2017 Blood Pressure 1: 140/86 Code: 8480-6 BMI: 32.9 Code: 88147-0 Heart Rate 1: 68 bpm Height: 5'3" SpO2: 98% Weight: 186 lbs 03/04/2017 Blood Pressure 1: 136/82 Code: 8480-6 Heart Rate 1: 61 bpm Height: 5'3" SpO2: 97% Temperature: 36.6 (C ) / 97.8 (F) Weight: 11/04/2016 Blood Pressure 1: 146/76 Code: 8480-6 BMI: 34.7 Code: 61791-1 Heart Rate 1: 70 bpm Height: 5'3" SpO2: 97% Waist Measure (cm): 107 cm Weight: 196 lbs 10/23/2016 Blood Pressure 1: 148/78 Code: 8480-6 BMI: 34.7 Code: 78876-0 Heart Rate 1: 68 bpm Height: 5'3" SpO2: 97% Weight: 196 lbs 10/03/2016 Blood Pressure 1: 142/78 Code: 8480-6 BMI: 34.7 Code: 39995-9 Heart Rate 1: 72 bpm Height: 5'3" SpO2: 98% Weight: 196 lbs 09/03/2016 Blood Pressure 1: 128/88 Code: 8480-6 Heart Rate 1: 86 bpm SpO2: 96% 08/21/2016 Blood Pressure 1: 128/62 Code: 8480-6 BMI: 35.1 Code: 75701-8 Heart Rate 1: 80 bpm Height: 5'3" SpO2: 98% Weight: 198 lbs 07/24/2016 Blood Pressure 1: 150/86 Code: 8480-6 BMI: 34.4 Code: 01132-4 Heart Rate 1: 72 bpm Height: 5'3" SpO2: 97% Weight: 194 lbs 04/24/2016 Blood Pressure 1: 138/76 Code: 8480-6 BMI: 34.2 Code: 59533-9 Heart Rate 1: 71 bpm Height: 5'3" SpO2: 98% Weight: 193 lbs 01/18/2016 Blood Pressure 1: 140/72 Code: 8480-6 BMI: 33.4 Code: 63807-0 Heart Rate 1: 69 bpm Height: 5'3" SpO2: 98% Weight: 188 lbs 8 oz 12/21/2015 Blood Pressure 1: 158/78 Code: 8480-6 BMI: 33.3 Code: 04341-1 Heart Rate 1: 66 bpm Height: 5'3" SpO2: 98% Weight: 188 lbs 08/17/2015 Blood Pressure 1: 132/76 Code: 8480-6 BMI: 30.5 Code: 19128-6 Heart Rate 1: 66 bpm Height: 5'3" Respiratory Rate: 18 bpm SpO2: 97% Weight: 172 lbs 06/23/2015 Blood Pressure 1: 160/80 Code: 8480-6 Blood Pressure 2: 170/86 Code: 8480-6 BMI: 28.3 Code: 29383-6 Heart Rate 1: 96 bpm Height: 5'3" SpO2: 98% Temperature: 37.3 (C ) / 99.1 (F) Weight: 160 lbs 06/21/2015 Blood Pressure 1: 132/78 Code: 8480-6 Heart Rate 1: 106 bpm SpO2: 98% Temperature: 37.3 (C ) / 99.2 (F) Weight: 166 lbs 03/28/2015 Blood Pressure 1: 160/84 Code: 8480-6 Blood Pressure 2: 138/78 Code: 8480-6 BMI: 32.1 Code: 76320-4 Heart Rate 1: 86 bpm Height: 5'3" SpO2: 97% Weight: 181 lbs 07/07/2014 Blood Pressure 1: 138/82 Code: 8480-6 BMI: 32.6 Code: 14783-1 Heart Rate 1: 82 bpm Height: 5'3" SpO2: 96% Weight: 184 lbs 03/24/2014 Blood Pressure 1: 138/64 Code: 8480-6 BMI: 32.4 Code: 50916-0 Heart Rate 1: 72 bpm Height: 5'3" Weight: 183 lbs 01/20/2014 Blood Pressure 1: 149/69 Code: 8480-6 Blood Pressure 2: 170/82 Code: 8480-6 Heart Rate 1: 81 bpm Weight: 183 lbs 12/20/2013 Blood Pressure 1: 150/78 Code: 8480-6 BMI: 32.6 Code: 39361-5 Heart Rate 1: 76 bpm Height: 5'3" Weight: 184 lbs 10/25/2013 Blood Pressure 1: 167/80 Code: 8480-6 BMI: 33.3 Code: 53356-3 Heart Rate 1: 60 bpm Height: 5'3" Weight: 188 lbs 10/19/2013 Blood Pressure 1: 136/78 Code: 8480-6 BMI: 33.1 Code: 76965-0 Height: 5'3" Weight: 187 lbs 05/25/2013 Blood Pressure 1: 134/82 Code: 8480-6 BMI: 33.5 Code: 92834-4 Heart Rate 1: 80 bpm Height: 5'3" Weight: 189 lbs 02/18/2013 Blood Pressure 1: 158/88 Code: 8480-6 Blood Pressure 2: 158/90 Code: 8480-6 BMI: 33.7 Code: 90705-0 Heart Rate 1: 80 bpm Height: 5'3" Weight: 190 lbs 10/01/2012 Blood Pressure 1: 138/62 Code: 8480-6 Heart Rate 1: 76 bpm Weight: 184 lbs 05/18/2012 Blood Pressure 1: 150/82 Code: 8480-6 Blood Pressure 2: 136/84 Code: 8480-6 BMI: 32.1 Code: 32881-1 Heart Rate 1: 71 bpm Height: 5'3" SpO2: 98% Weight: 181 lbs 02/11/2012 Blood Pressure 1: 126/56 Code: 8480-6 Heart Rate 1: 68 bpm Respiratory Rate: 16 bpm Weight: 184 lbs 01/14/2012 Blood Pressure 1: 158/80 Code: 8480-6 BMI: 33.9 Code: 40939-3 Heart Rate 1: 60 bpm Height: 5'3" [...] readings at home 02/11/2012 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 PATIENT, LEVEL III Diagnosis: Acute laryngopharyngitis[ICD10: J06.0] Diagnosis: Other allergic rhinitis[ICD10: J30.89] Luz Ott MD, [facility] CPT-4: 86712 02/17/2019 ([id number]) 45408 EST. P ATIENT, LEVEL IV Diagnosis: Type 2 diabetes mellitus with diabetic polyneuropathy[ICD10: E11.42] Diagnosis: Pain in left leg[ICD10: M79.605] Diagnosis: Pain in right leg[ICD10: M79.604] Carmelina Ott MD, [facility] CPT-4: 53889 08/27/2018 ([id number]) Tee sweet no charge Diagnosis: Other fatigue[ICD10: R53.83] Carmelina Ott MD, [facility] CPT-4: 33924 06/17/2018 ([id number]) 73684 EST. P ATIENT, LEVEL IV Diagnosis: Essential (primary) hypertension[ICD10: I10] Diagnosis: Hypothyroidism, unspecified[ICD10: E03.9] Diagnosis: Type 2 diabetes mellitus without complications[ICD10: E11.9] Diagnosis: Chronic pain syndrome[ICD10: G89.4] Diagnosis: Vitamin B12 deficiency anemia, unspecified[ICD10: D51.9] Diagnosis: Unsteadiness on feet[ICD10: R26.81] Nicki Ott MD, [facility] CPT-4: 32893 02/24/2018 ([id number]) 84539 EST. P ATIENT, LEVEL IV Diagnosis: Type 2 diabetes mellitus without complications[ICD10: E11.9] Diagnosis: Hypothyroidism, unspecified[ICD10: E03.9] Diagnosis: Essential (primary) hypertension[ICD10: I10] Diagnosis: Pain in left shoulder[ICD10: M25.512] Nicki Ott MD, [facility] CPT-4: 26303 11/03/2017 ([id number]) 10932 EST. P ATIENT, LEVEL III Diagnosis: Essential (primary) hypertension[ICD10: I10] Diagnosis: Major depressive disorder, recurrent, mild[ICD10: F33.0] Diagnosis: Other allergic rhinitis[ICD10: J30.89] Nicki Ott MD, [facility] CPT-4: 45849 08/08/2017 ([id number]) 68393 EST. P ATIENT, LEVEL IV Diagnosis: Hypothyroidism, unspecified[ICD10: E03.9] Diagnosis: Major depressive disorder, recurrent, mild[ICD10: F33.0] Diagnosis: Myalgia[ICD10: M79.1] Diagnosis: Chronic pain syndrome[ICD10: G89.4] Diagnosis: Essential (primary) hypertension[ICD10: I10] Nicki Ott MD, [facility] CPT-4: 21835 07/10/2017 ([id number]) 43735 EST. P ATIENT, LEVEL IV Diagnosis: Essential (primary) hypertension[ICD10: I10] Diagnosis: Atrophy of thyroid (acquired)[ICD10: E03.4] Diagnosis: Sacroiliitis, not elsewhere classified[ICD10: M46.1] Diagnosis: Mixed hyperlipidemia[ICD10: E78.2] Carmelina Ott MD, [facility] CPT- 4: 29418 03/06/2017 ([id number]) 66783 EST. P ATIENT, LEVEL II Diagnosis: Rash and other nonspecific skin eruption[ICD10: R21] Nicki Ott MD, [facility] CPT-4: 87482 03/04/2017 ([id number]) 36425 EST. P ATIENT, LEVEL IV Diagnosis: Type 2 diabetes mellitus without complications[ICD10: E11.9] Diagnosis: Essential (primary) hypertension[ICD10: I10] Diagnosis: Atrophy of thyroid (acquired)[ICD10: E03.4] Carmelina Ott MD, C CPT-4: 62250 10/23/2016 68955 EST. PATIENT, LEVEL III Diagnosis: Other specified hypothyroidism[ICD10: E03.8] Diagnosis: Other specified anemias[ICD10: D64.89] Diagnosis: Pain in thoracic spine[ICD10: M54.6] Luz Ott MD, [facility] CPT- 4: 02425 10/03/2016 25622 EST. PATIENT, LEVEL II Diagnosis: Insect bite (nonvenomous) of other part of head, initial encounter[ICD10: S00.86XA] Nicki Ott MD, [facility] CPT-4: 14837 09/03/2016 ([id number]) 24896 EST. P ATIENT, LEVEL IV Diagnosis: Type 2 diabetes mellitus without complications[ICD10: E11.9] Diagnosis: Hypothyroidism, unspecified[ICD10: E03.9] Diagnosis: Essential (primary) hypertension[ICD10: I10] Carmelina Ott MD, C CPT-4: 85592 08/21/2016 ([id number]) 07397 EST. P ATIENT, LEVEL IV Diagnosis: Essential (primary) hypertension[ICD10: I10] Diagnosis: Supraventricular tachycardia[ICD10: I47.1] Diagnosis: Other fatigue[ICD10: R53.83] Carmelina Ott MD, [facility] CPT-4: 02322 07/24/2016 ([id number]) 16477 EST. P ATIENT, LEVEL IV Diagnosis: Type 2 diabetes mellitus without complications[ICD10: E11.9] Diagnosis: Essential (primary) hypertension[ICD10: I10] Diagnosis: Hypothyroidism, unspecified[ICD10: E03.9] Carmelina Ott MD, C CPT-4: 33129 04/24/2016 ([id number]) 26774 EST. P ATIENT, LEVEL IV Diagnosis: Type 2 diabetes mellitus without complications[ICD10: E11.9] Diagnosis: Type 2 diabetes mellitus with diabetic polyneuropathy[ICD10: E11.42] Carmelina Ott MD, [facility] CPT-4: 93204 01/18/2016 ([id number]) 56735 EST. P ATIENT, LEVEL IV Diagnosis: Urticaria, unspecified[ICD10: L50.9] Diagnosis: Dermatographic urticaria[ICD10: L50.3] Diagnosis: Hypothyroidism, unspecified[ICD10: E03.9] Diagnosis: Type 2 diabetes mellitus without complications[ICD10: E11.9] Diagnosis: Mixed hyperlipidemia[ICD10: E78.2] Diagnosis: Myalgia[ICD10: M79.1] Diagnosis: Essential (primary) hypertension[ICD10: I10] Carmelina Ott MD, [facility] CPT-4: 05285 12/21/2015 ([id number]) 73697 EST. P ATIENT, LEVEL IV Diagnosis: Hypothyroidism, unspecified[ICD10: E03.9] Diagnosis: Essential (primary) hypertension[ICD10: I10] Diagnosis: Urticaria, unspecified[ICD10: L50.9] Carmelina Ott MD, [facility] CPT-4: 54480 08/17/2015 ([id number]) Miscellaneou s no charge Diagnosis: ESSENTIAL HYPERTENSION[ICD9: 401.9] Diagnosis: Elevated temperature[ICD9: 780.60] Diagnosis: EDEMA[ICD9: 782.3] Katja Ott MD, [facility] CPT-4: 21284 06/23/2015 ([id number]) 60471 EST. P ATIENT, LEVEL IV Diagnosis: ESSENTIAL HYPERTENSION[ICD9: 401.9] Diagnosis: TACHYCARDIA[ICD9: 785.0] Diagnosis: Dyspnea[ICD9: 786.09] Katja Ott MD, [facility] CPT-4: 57536 06/21/2015 ([id number]) 01067 EST. P ATIENT, LEVEL III Diagnosis: Sacroiliitis[ICD9: 720.2] Diagnosis: LUMBAGO[ICD9: 724.2] Nicki Ott MD, [facility] CPT-4: 08933 03/28/2015 ([id number]) 54712 EST. P ATIENT, LEVEL IV Diagnosis: HYPOTHYROIDISM[ICD9: 244.9] Diagnosis: ESSENTIAL HYPERTENSION[ICD9: 401.9] Diagnosis: DIABETES TYPE II[ICD9: 250.00] Diagnosis: HYPERLIPIDEMIA[ICD9: 272.4] Diagnosis: Muscle ache[ICD9: 729.1] Carmelina Ott MD, [facility] CPT-4: 18694 07/07/2014 ([id number]) 36447 EST. P ATIENT, LEVEL IV Diagnosis: DIABETES TYPE II[SNOMED: 487940361] Diagnosis: ESSENTIAL HYPERTENSION[SNOMED: 94058481] Diagnosis: HYPOTHYROIDISM[ICD9: 244.9] Carmelina Ott MD, [facility] CPT-4: 97566 03/24/2014 ([id number]) 19792 EST. P ATIENT, LEVEL III Diagnosis: DIABETES TYPE II[SNOMED: 748576748] Diagnosis: ESSENTIAL HYPERTENSION[SNOMED: 73129179] Carmelina Ott MD, [facility] CPT-4: 88407 01/20/2014 ([id number]) 29175 EST. P ATIENT, LEVEL IV Diagnosis: DIABETES TYPE II[SNOMED: 944364980] Diagnosis: ESSENTIAL HYPERTENSION[SNOMED: 76682287] Diagnosis: Peripheral neuropathy, idiopathic[ICD9: 356.9] Carmelina Ott MD, [facility] CPT-4: 27300 12/20/2013 ([id number]) 45086 EST. P ATIENT, LEVEL IV Diagnosis: DIABETES TYPE II[SNOMED: 158449875] Diagnosis: ESSENTIAL HYPERTENSION[SNOMED: 81087883] Diagnosis: Dietary counseling and surveillance[ICD9: V65.3] Carmelina Ott MD, [facility] CPT-4: 25233 10/25/2013 ([id number]) 72957 EST. P ATIENT, LEVEL IV Diagnosis: DIABETES TYPE II[SNOMED: 058967259] Diagnosis: ESSENTIAL HYPERTENSION[SNOMED: 44387348] Diagnosis: HYPOTHYROIDISM[ICD9: 244.9] Carmelina Ott MD, [facility] CPT-4: 12309 10/19/2013 ([id number]) 04826 EST. P ATIENT, LEVEL IV Diagnosis: ESSENTIAL HYPERTENSION[SNOMED: 88290094] Diagnosis: DIABETES TYPE II[SNOMED: 764866401] Diagnosis: HYPOTHYROIDISM[ICD9: 244.9] Carmelina Ott MD, [facility] CPT-4: 89146 05/25/2013 ([id number]) 95678 EST. P ATIENT, LEVEL IV Diagnosis: DIABETES TYPE II[SNOMED: 835329787] Diagnosis: ESSENTIAL HYPERTENSION[SNOMED: 17140471] Diagnosis: HYPOTHYROIDISM[ICD9: 244.9] Carmelina Ott MD, [facility] CPT-4: 36478 02/18/2013 ([id number]) 35166 EST. P ATIENT, LEVEL III Diagnosis: ESSENTIAL HYPERTENSION[SNOMED: 78502068] Carmelina Ott MD, C CPT-4: 34448 10/01/2012 ([id number]) 54771 EST. P ATIENT, LEVEL IV Diagnosis: DIABETES TYPE II[SNOMED: 950668356] Diagnosis: ESSENTIAL HYPERTENSION[SNOMED: 77804629] Carmelina Ott MD, C CPT-4: 04939 05/18/2012 ([id number]) 72077 EST. P ATIENT, LEVEL IV Diagnosis: DIABETES TYPE II[SNOMED: 075709798] Diagnosis: HYPOTHYROIDISM[ICD9: 244.9] Diagnosis: UTI (lower urinary tract infection)[ICD9: 599.0] Diagnosis: Vaginal yeast infection[ICD9: 112.1] Diagnosis: Rectal lump[ICD9: 787.99] Diagnosis: Abdominal bloating[ICD9: 787.3] Carmelina Ott MD, [facility] CPT-4: 05916 02/11/2012 ([id number]) 64688 EST. P ATIENT, LEVEL IV Diagnosis: ESSENTIAL HYPERTENSION[SNOMED: 01331698] Diagnosis: DIABETES TYPE II[SNOMED: 065189912] Diagnosis: HYPERLIPIDEMIA[ICD9: 272.4] Diagnosis: HYPOTHYROIDISM[ICD9: 244.9] Carmelina Ott MD, [facility] CPT-4: 98015 01/14/2012 Plan of Care Planned Activity Notes [...] allergy spray. 02/17/2019 Appointment: Luz Latham WPtel: [facility]5 [facility]66[facility] (15 min) Moderate 02/17/2019 Patient Education: Patient Medication Summary Completed 02/17/2019 Patient Education: Patient Medication Summary Completed 12/31/2018 Appointment: Carmelina Ott WPtel: [facility]5 [facility] (15 min) Moderate 12/28/2018 Patient Education: Patient [...] with Cymbalta. 08/27/2018 Appointment: Carmelina Ott WPtel: [facility]5 [facility]66[facility] (15 min) Moderate 08/27/2018 Patient Education: [...] Gait instabilty-patient going to do PT at [facility] 02/24/2018 Appointment: Nicki Cabral WPtel: [phone] [phone] (30 min) Complex 02/24/2018 Patient Education: Patient [...] not improved. 11/03/2017 Appointment: Nicki Cabral WPtel: [phone] (30 min) Complex 11/03/2017 Patient Education: Patient [...] spray in the nasal steroid allergy spray. Mwxptgmmad-afrdfqzs-faiwhiob cymbalta 08/08/2017 Appointment: Nicki Cabral WPtel: [phone] [phone] (30 min) Complex 08/08/2017 Patient Education: Patient [...] 07/10/2017 App[facility]ment: [phone] (15 min) Moderate 07/10/2017 Appointment: Nicki Cabral WPtel: [phone] [phone] (30 min) Complex 07/10/2017 Patient Education: Patient [...] recommended pt to continue with aleve, get [place] to use on your knee and hip [...] of control. 03/06/2017 Appointment: Carmelina Ott WPtel: [address] [place], [place] [address] (15 min) Moderate 03/06/2017 Patient Education: Patient Medication Summary Completed 03/06/2017 Patient Education: Obesity Completed 03/06/2017 Visit Plan: Rash-very faint-will cu lture the rash today- recommend emollient such as eucerin cream or cerave-call if rash does not resolve or if any worse. Patient verbalized understanding of plan. 03/04/2017 Appointment: Nicki Cabral WPtel: [facility]5 [phone] (15 min) Moderate 03/04/2017 Patient Education: Patient Medication Summary Completed 03/04/2017 Appointment: Carmelina Ott WPtel: [facility]5 [facility] (15 min) Moderate 02/19/2017 Visit Plan: [...] care surrogate. 11/04/2016 [facility]ment: [phone] [facility] - Annual Wellness Visit 11/04/2016 Patient [...] of control. 10/23/2016 Appointment: Carmel[facility] Ott [facility]Ptel[phone] [facility] (15 min) Moderate 10/23/2016 Patient Education: [...] of control. 10/03/2016 Appointment: Lu[facility] Latham [phone] (30 min) Complex 10/03/2016 Patient Education: Patient Medication Summary Completed 10/03/2016 Patient Education: Obesity Completed 10/03/2016 Visit Plan: Insect bite-right cheek -kenalog injection today in the office-use benadryl cream as needed for itching. Call for s/s of infection-increase redness, warmth, induration. Patient verbalized understanding of plan. 09/03/2016 Appointment: [facility] Cab[phone] [phone] (15 min) Moderate 09/03/2016 Patient Education: Patient [...] 08/21/2016 Appointment: Carmelina Ott [facility]Ptel[facility] [phone] [facility] (15 min) Moderate 08/21/2016 Patient Education: [...] of control. 04/24/2016 Appointment: Carm[facility] Ott [facility]Ptel[facility] [phone] [facility] (15 min) Moderate 04/24/2016 Patient Education: [...] neuropathy. 01/18/2016 Appointment: Carmelina Ott WPtel: [phone] [facility] (15 min) Moderate 01/18/2016 Patient Education: Patient [...] today. 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 07/07/2014 Appointment: Carmelina Ott: [phone] [facility] Follow up 07/07/2014 Patient Education: Patient [...] 03/24/2014 Appointment: Carmel[facility] Ott WPtel: [phone] [facility] Follow [facility] 03/24/2014 Patient Education: Patient Medication [...] 01/20/2014 Appointment: Carmelina Ott WPtel: [phone] [facility] Follow [facility] 01/20/2014 Patient Education: Patient Medication Summary Completed 01/20/2014 Patient Education: Hypertension Completed 01/20/2014 Appointment: Carmelina Ott WPtel: [phone] [facility] Follow up 01/17/2014 Visit Plan: Diabetes Mellitus [...] control. 12/20/2013 Appointment: Carmelina Ott WPtel: [phone] [facility] Other 12/20/2013 Patient Education: Patient Medication Summary [...] 10/25/2013 Appointment: Carmelina Ott WPtel: [phone] [facility] Diabetic education 10/25/2013 Patient Education: Patient [...] of control. 10/19/2013 Appointment: Carmelina Ott WPtel: [facility]5 [facility] Follow up 10/19/2013 Patient Education: Patient Medication Summary Completed 10/19/2013 Patient Education: Hypertension Completed 10/19/2013 Appointment: Carmelina Ott WPtel: [facility]5 [facility] Follow up 09/23/2013 Visit Plan: Hypertension - [...] of control. 05/25/2013 Appointment: Carmelina Ott WPtel: [phone] [facility] Follow up 05/25/2013 Patient Education: Patient Medication Summary Completed 05/25/2013 Patient Education: Hypertension Completed 05/25/2013 Appointment: Carmelina Ott WPtel: [phone] [facility] Follow up 05/19/2013 Visit Plan: Diabetes Mellitus [...] 3 months. 02/18/2013 Appointment: Carmelina Ott WPtel: [facility]5 [facility] Follow up 02/18/2013 Patient Education: Patient Medication [...] and resolved. 10/01/2012 Appointment: Carmelina Ott WPtel: [phone] [facility] Other 10/01/2012 Patient Education: Patient Medication Summary [...] for yeast 02/11/2012 Appointment: Carmelina Ott WPtel: [facility] pt will comment on meaningful use [...] kegel exercises. 01/14/2012 Appointment: Carmelina Ott WPtel: [facility] [place] Other 01/14/2012 Patient Education: Patient Medication Summary Completed 01/14/2012 Patient Education: High Blood Pressure: Essential Hypertension Completed 01/14/2012 Referral: Andrew Madera Referral Relationship Referral: Ravi Gaston WPtel: [phone] Referral Relationship Referral: Ella Saldana Referral [...] spray in the nasal steroid allergy spray. DECREASE THE METOPRO LOL ER TO 50MG [...] warmth, induration. Patient verbalized understanding of plan. CALL FRIDAY IF MIMI N NOT BETTER, WE CAN SEND FOR XRAYS AND LABS . Sacroiliitis - back exercises discusse d with the patient, pt to continue with anti-inflammatories. Pt is to call if the symptoms do not improve or if they worsen. Kenalog injection today in the office. Refill hydrocodone Keep applying chapst ick to lip Chest X-Ray at [facility] today We will write referral order for [...] ick to lip Chest X-Ray at [facility] today We will write referral order for [...] follow up on this patient's medical condition. . Diabetes Mellitus - controlled - per [...] DIET. Ureg incontinenece - recommended kegel exercises. . Diabetes Mellitus - controlled - per [...] new diabetic shoes, need greater diabetic control. 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 Monitor you blood hutchins gars as directed [...] Gait instabilty-patient going to do PT at [facility] . Rash-very faint-wi ll culture the rash [...] spray in the nasal steroid allergy spray. Luvlmwkbpy-iujqhjmt-tnuxqgjp cymbalta . Hypertension - wel l controlled [...] hold the pravastatin x 1 month . Right side pain - The pt [...] recommended pt to continue with aleve, get [place] to use on your knee and hip [...] recommended pt to continue with aleve, get [place] to use on your knee and hip [...]
--- OUTSIDE RECORDS SUMMARY | 2020-05-26 12:19 | XMS REPORT | CCD ---
Author Author Aleyda Ott tx Organization Carmelina Ott MD, [facility] Address [facility] [place] [address] Phone Care Team Providers Care Integration Director Name Role Phone PP Unavailable CCM Unavailable Summary Purpose Interface Exchange Insurance Providers Payer name Policy type / Coverage type Covered libertarian ID Effective Begin Date Effective End Date WPS Medicare Part B Medicare Part B [id number] 2013 Unknown [facility] ica Part B [id number] 2013 Unkno wn Family history Brother Diagnosis Age At Onset Heart disease Unknown Sister Diagnosis Age At Onset endometrial cancer Unknown Father Diagnosis Age At Onset Heart disease Unknown Mother Diagnosis Age At Onset Heart disease Unknown Social History Social History Element Codes Description Effective Dates Marital status Unknown W idowed 01/14/[address]: [id number] Nonsmoker 01/14/2012 Has the patient ever used illegal drugs? Unknown Has never used illegal drugs 012 Allergies, Adverse Reactions, Alerts Substance Reaction Codes Entered Date Inactivated Date Status * NO KNOWN FOOD CAROLA RGIES Unknown 01/14/2012 No Inactive Date Active * NO KNOWN DRUG CAROLA RGIES Unknown 01/14/2012 No Inactive Date Active Past Medical History Illness Codes Condition Status Onset Date Resolved Date Encounter for screen ing mammogram for malignant [...] ICD-9: 296.31 ICD-10: F33.0 Active 07/10/2017 Unknown Other allergic rhinitis ICD-9: 477.8 ICD-10: J30.89 Active 08/08/2017 Unknown Myalgia ICD-9: 729.1 ICD-10: M79.1 Active [...] Condition Codes Effectiv e Dates Condition Status Encounter for screen ing mammogram for malignant [...] mild ICD-9: 296.31 ICD-10: F33.0 07/10/2017 Active Other allergic rhinitis ICD-9: 477.8 ICD-10: J30.89 08/08/2017 Active Myalgia ICD-9: 729.1 ICD-10: M79.1 07/07/2014 Active Atrophy of thyroid ( acquired) ICD-9: 244.8 ICD-10: E03.4 10/23/2016 Active Sacroiliitis, not el sewhere classified ICD-9: 720.2 ICD-10: M46.1 03/06/2017 Active Rash and other nonsp ecific skin eruption ICD-9: 782.1 ICD-10: R21 03/04/2017 Active Encounter for [facility] adult medical examination with abnormal findings ICD-9: [...] Date Stop Date Sta tus Fill Instructions Synthroid 50 mcg tablet RxNorm: 209150 TAKE ONE TABLET BY MOUTH DAILY (DISCONTI NUE LEVOTHYROXINE) 12/14/2018 12/08/2019 Active metoprolol succinate ER 50 mg tablet,extended release 24 hr RxNorm: 480762 1 Tablet(s) PO QPM TAKE ONE TABLET BY MOUTH EVERY EVENING 10/20/2018 03/18/2019 Active metoprolol succinate ER 50 mg tablet,extended release 24 hr RxNorm: 097741 1 Tablet(s) PO QPM TAKE ONE TABLET BY MOUTH EVERY EVENING 05/08/2018 10/19/2018 Inactive Cymbalta 30 mg capsu le,delayed release RxNorm: 349808 TAKE ONE CAPSULE BY M OUTH DAILY 11/24/2017 11/18/2018 Inactive Synthroid 50 mcg tablet RxNorm: 380817 TAKE ONE TABLET BY MOUTH DAILY (DISCONTI NUE LEVOTHYROXINE) 11/24/2017 12/13/2018 Inactive Voltaren 1 % topical gel RxNorm: 022614 [facility] 11/03 No Stop Date Active metoprolol succinate ER 50 mg tablet,extended release 24 hr RxNorm: 785248 1 Tablet(s) PO QPM TAKE ONE TABLET BY MOUTH EVERY EVENING 10/06/2017 05/03/2018 Inactive Synthroid 50 mcg tablet RxNorm: 609692 TAKE ONE TABLET BY MOUTH DAILY (DISCONTI NUE LEVOTHYROXINE) 09/04/2017 11/23/2017 Inactive Cymbalta 30 mg capsu le,delayed release RxNorm: 327679 1 Capsule(s) PO daily 07/10/2017 10/07/2017 In active metoprolol succinate ER 50 mg tablet,extended release 24 hr RxNorm: 990409 TAKE ONE TABLET BY MOUTH EVERY EVENING 03/06/2017 10/01/2017 Inactive Kenalog 40 mg/mL [employer] pension for injection RxNorm: 5699499 Milliliter(s) Inj 09/03/2016 09/03/2016 In active tramadol 50 mg tablet RxNorm: 076303 1 Tablet(s) PO Q4-6H as needed 08/21/2016 No Stop Date Active Synthroid 50 mcg tablet RxNorm: 332648 1 Tablet(s) PO daily 08/21/2016 08/15/2017 Inactive DC levothyroxine metoprolol succinate ER 25 mg tablet,extended release 24 hr RxNorm: 193839 1 Tablet(s) PO QAM 07/24/2016 08/20/2016 Inactive metoprolol succinate ER 50 mg tablet,extended release 24 hr RxNorm: 021502 1 Tablet(s) PO QPM 07/24/2016 02/18/2017 Inactive Synthroid 50 mcg tablet RxNorm: 319376 1 Tablet(s) PO daily 06/10/2016 08/20/2016 Inactive DC levothyroxine Synthroid 50 mcg tablet RxNorm: 382122 1 Tablet(s) PO daily 05/16/2016 06/09/2016 Inactive hydrocortisone 2.5 % topical cream RxNorm: 377219 1 Application TOP TID 05/08/2016 08/05/2016 In active hydrocortisone 2.5 % topical cream RxNorm: 584024 1 Application TOP TID 05/08/2016 05/07/2016 In active betamethasone diprop ionate 0.05 % topical cream RxNorm: 734721 1 Application TOP BID as needed 04/24/2016 05/07/2016 Inactive betamethasone diprop ionate 0.05 % topical cream RxNorm: 993574 1 Application TOP BID as needed 04/24/2016 04/23/2016 Inactive loratadine 10 mg tablet RxNorm: 136948 1 Tablet(s) PO daily 01/18/2016 05/16/2016 Inactive loratadine 10 mg dis integrating tablet RxNorm: 204831 1 Tablet(s) PO daily 01/18/2016 01/17/2016 In active Synthroid 50 mcg tablet RxNorm: 710960 1 Tablet(s) PO daily 01/01/2016 04/29/2016 Inactive Synthroid 50 mcg tablet RxNorm: 565777 1 Tablet(s) PO daily 01/01/2016 12/31/2015 Inactive prednisone 20 mg tablet RxNorm: 681381 3 Tablet(s) PO daily 09/11/2015 09/15/2015 Inactive prednisone 20 mg tablet RxNorm: 752687 3 Tablet(s) PO daily 09/11/2015 09/10/2015 Inactive Abreva 10 % topical cream RxNorm: 620326 1 Application TOP 5x daily 06/23/2015 07/12/2015 Inactive Apply to lip lesions 5 times per day for 10 days prednisone 20 mg tablet RxNorm: 609355 2 Tablet(s) PO daily x3 06/12/2015 06/14/2015 Inactive prednisone 20 mg tablet RxNorm: 138171 2 Tablet(s) PO daily x3 06/12/2015 06/11/2015 Inactive Kenalog 40 mg/mL [place] pension for injection RxNorm: 4889994 1 Milliliter(s) Inj 03/28/2015 03/28/2015 In active hydrocodone 7.5 mg-a cetaminophen 325 mg tablet RxNorm: 064240 1 Tablet(s) PO Q4-6H as needed for back pain 03/28/2015 06/11/2015 Inactive Synthroid 50 mcg tablet RxNorm: 435217 1 Tablet(s) PO daily TAKE ONE TABLET BY MOUTH EVERY DAY 12/12/2014 12/11/2014 Inactive Synthroid 50 mcg tablet RxNorm: 462043 TAKE ONE TABLET BY MOUTH EVERY DAY 12/12/2014 12/20/2015 In active hydrocodone 7.5 mg-a cetaminophen 325 mg tablet RxNorm: 540642 1 Tablet(s) PO Q4-6H as needed for back pain 07/07/2014 09/04/2014 Inactive Synthroid 50 mcg tablet RxNorm: 873483 1 Tablet(s) PO daily TAKE ONE TABLET BY MOUTH EVERY DAY 07/07/2014 12/11/2014 Inactive Synthroid 50 mcg tablet RxNorm: 217198 TAKE ONE TABLET BY MOUTH EVERY DAY 06/06/2014 06/10/2014 In active Synthroid 50 mcg tablet RxNorm: 943831 TAKE ONE TABLET BY MOUTH EVERY DAY 06/06/2014 06/10/2014 In active Singulair 10 mg tablet RxNorm: 815343 Tablet(s) PO TAKE ONE TABLET BY MOUTH EV FCO DAY 03/03/2014 06/22/2015 Inactive hydrocodone 5 mg-kristofer taminophen 500 mg tablet RxNorm: 756550 Tablet(s) PO PRN 01/20/2014 07/06/2014 In active Synthroid 50 mcg tablet RxNorm: 998076 1 Tablet(s) PO daily name brand only 12/14/2013 12/13/2013 In active name brand only Synthroid 50 mcg tablet RxNorm: 721673 1 Tablet(s) PO daily name brand only 12/14/2013 06/05/2014 In active name brand only Januvia 50 mg tablet RxNorm: 783454 1 Tablet(s) PO daily 03/24/2013 05/25/2013 Inactive Singulair 10 mg tablet RxNorm: 245266 Tablet(s) PO TAKE ONE TABLET BY MOUTH EV FCO DAY 03/02/2013 03/02/2014 Inactive levothyroxine 50 mcg tablet RxNorm: 830597 1 Tablet(s) PO daily 02/03/2013 02/02/2013 Inactive levothyroxine 50 mcg tablet RxNorm: 593389 1 Tablet(s) PO daily 02/03/2013 10/18/2013 Inactive levothyroxine 25 mcg tablet RxNorm: 365810 1 1/2 Tablet(s) PO daily 01/29/2013 02/02/2013 Inactive one and one half tab daily (1 1/2)may zhang ve 90 day supply if cheaper levothyroxine 25 mcg tablet RxNorm: 885605 Tablet(s) PO TAKE 1 A ND 1/2 TABLETS ONCE DAILY 11/02/2012 05/25/2013 Inactive glipizide 5 mg tablet RxNorm: 523274 Tablet(s) PO TAKE ONE-HALF TABLET BY ADÁN TH EVERY DAY 10/19/2012 05/25/2013 Inactive metformin 500 mg tablet RxNorm: 240477 Tablet(s) PO TAKE ONE-HALF TABLET BY ADÁN TH TWICE A DAY 10/19/2012 05/25/2013 Inactive Voltaren 1 % Topical Gel RxNorm: 370183 4 Gram(s) TOP QID 10/01/2012 12/25/2015 Inactive levothyroxine 25 mcg tablet RxNorm: 276546 1 1/2 Tablet(s) PO daily 08/03/2012 01/28/2013 Inactive one and one half tab daily (11/18)may zhang ve 90 day supply if cheaper metformin 500 mg tablet RxNorm: 541398 1/2 Tablet(s) PO BID 03/03/2012 08/29/2012 Inactive glipizide 5 mg Tab RxNorm: 365878 1/2 Tablet(s) PO daily 03/03/2012 03/02/2012 Inactive metformin 500 mg Tab RxNorm: 833360 1/2 Tablet(s) PO BID 03/03/2012 03/02/2012 Inactive glipizide 5 mg tablet RxNorm: 219569 1/2 Tablet(s) PO daily 03/03/2012 08/29/2012 Inactive Singulair 10 mg tablet RxNorm: 159841 1 Tablet(s) PO daily 03/02/2012 03/01/2013 Inactive Bactrim DS 800 mg-16 0 mg Tab RxNorm: 708813 1 Tablet(s) PO BID 02/11/2012 02/20/2012 Inactive fluconazole 150 mg Tab RxNorm: 725029 1 Tablet(s) PO daily 02/11/2012 05/25/2013 Inactive levothyroxine 25 mcg tablet RxNorm: 688092 1 1/2 Tablet(s) PO daily 01/15/2012 07/12/2012 Inactive one and one half tab daily (11/18)may zhang ve 90 day supply if cheaper levothyroxine 100 mc g Tab RxNorm: 506742 1 Tablet(s) PO daily 09/04/2011 01/14/2012 Inactive Singulair 10 mg Tab RxNorm: 794619 1 Tablet(s) PO daily 09/04/2011 03/01/2012 Inactive zinc lozenges RxNorm: 1 PO QHS No Start Date Active Vitamin B-6 100 mg t ablet RxNorm: 868860 2 Tablet(s) PO QPM No Start Date Active Zinc Chelate 15 mg t ablet RxNorm: 1 Tablet(s) PO daily with 1 ,000 mg calcium No Start Date Active Vitamin D3 2,000 uni t tablet RxNorm: 192497 1 Tablet(s) PO QPM No Start Date Active Artificial Tears RxNorm: 242000 ophthalmic No Start Date Active pravastatin 20 mg ta blet RxNorm: 062252 1 Tablet(s) PO QHS No Start Date Active Nitrostat 0.4 mg Sub lingual Tab RxNorm: 488585 Tablet(s) SL PRN No Start Date Active Vitamin C 100 mg tablet RxNorm: 101576 1 Tablet(s) PO QHS No Start Date Active Fish Oil 360 mg-1,20 0 mg capsule RxNorm: 420655 1 Capsule(s) PO daily No Start Date Active latanoprost 0.005 % eye drops RxNorm: 709111 1 Drop(s) OPH each ey e QHS No Start Date Active Vitamin B-12 1,000 m cg tablet RxNorm: 539329 1 Tablet(s) PO daily No Start Date Active [place] Saline nasal RxNorm: 9863 nasal No Start Date Active [place] Complete oral RxNorm: oral No Start D ate Active aspirin 81 mg Tab, D elayed Release RxNorm: 497092 1 Tablet(s) PO daily No Start Date Active vitamin D3-[place] ne 7 Oral RxNorm: Oral No Start D ate 12/26/2015 Inactive vitamin B6-vitamin E -magnesium Tab RxNorm: 1 Tablet(s) PO daily No Start Date 12/26/2015 Inactive Zinc Chelate 15 mg t ablet RxNorm: 1 Tablet(s) PO daily with 4 00 mg Magnesium No Start Date 10/23/2016 Inactive pravastatin 20 mg ta blet RxNorm: 153797 1 Tablet(s) PO daily No Start Date 01/19/2014 Inactive Zocor 20 mg Tab RxNorm: 316511 1 Tablet(s) PO QHS No Start Date 05/25/2013 Inactive Plavix 75 mg tablet RxNorm: 548516 1 Tablet(s) PO daily No Start Date 03/28/2015 Inactive metoprolol succinate ER 100 mg tablet,extended release 24 hr RxNorm: 017283 1 Tablet(s) PO daily No Start Date 07/23/2016 Inactive Januvia 100 mg Tab RxNorm: 968071 1 Tablet(s) PO daily No Start Date 05/25/2013 Inactive tramadol 50 mg tablet RxNorm: 854068 1 Tablet(s) PO as needed No Start Date 08/20/2016 Inactive [place] Complete Oral RxNorm: Oral No Start D ate 12/26/2015 Inactive Plavix 75 mg Tab RxNorm: 538264 1 Tablet(s) PO every other day No Start Date 05/25/2013 Inactive Accu-Chek Compact Te st strips RxNorm: 1 test Miscellaneous BID No Start Date 10/22/2016 Inactive accu-chek compact plus Accu-Chek Softclix L ancets RxNorm: 1 test Miscellaneous daily No Start Date 10/22/2016 Inactive Fish Oil 1,000 mg Cap RxNorm: 1 Capsule(s) PO daily No Start Date 12/26/2015 Inactive Januvia 50 mg tablet RxNorm: 335584 Tablet(s) PO No Start Date 03/23/2013 Inactive hydrocodone 5 mg-kristofer taminophen 500 mg tablet RxNorm: 128070 Tablet(s) PO PRN No Start Date 01/19/2014 Inactive Synthroid 50 mcg tablet RxNorm: 524112 1 Tablet(s) PO daily name brand only No Start Date 12/13/2013 Inactive name brand only levothyroxine 25 mcg Tab RxNorm: 358129 1 Tablet(s) PO daily 1 tab q morning on empty stomach No Start Date 01/13/2012 Inactive metoprolol succinate ER 50 mg 24 hr Tab RxNorm: 490603 1 Tablet(s) PO daily No Start Date 12/25/2015 Inactive pravastatin 40 mg ta blet RxNorm: 348973 Tablet(s) PO No Start Date 12/25/2015 Inactive latanoprost Opht RxNorm: Ophthalmic No Start Date 12/26/2015 Inactive cranberry Oral RxNorm: Oral No Start Date 06/22/2015 Inactive Medication Administered Medication Codes Instruc tions Start Date Status Kenalog 40 mg/mL suspension for injection RxNorm: 2209427 Milliliter 09/03/2016 No longer Active Kenalog 40 mg/mL suspension for injection RxNorm: 8083695 1Milliliter 03/28/2015 N o longer Active Immunizations Vaccine Codes Date Status PPD Unknown 06/23/2015 completed Influenza CVX: 141 10/19 completed Assessments Condition Codes Effectiv e Dates Encounter for screening mammogram for ma lignant neoplasm of breast ICD-10: Z12.31 ICD-9: V76.10 12/31/2018 Essential (primary) hypertension ICD -10: I10 ICD-9: 401.1 12/21/2018 Type 2 diabetes mellitus with diabetic polyneuropathy ICD-10: E11.42 ICD-9: 250.60 12/21/2018 Mixed hyperlipidemia ICD-10: E78.2 ICD-9: 272.4 12/21/2018 Hypothyroidism, unspecified ICD-10: E03.9 ICD-9: 244.9 12/21/2018 Other specified anemias ICD-10: D64. 89 ICD-9: 285.8 12/21/2018 Pain in left leg ICD-10: M79.605 ICD-9: 729.5 08/27/2018 Pain in right leg ICD-10: M79.604 ICD-9: 729.5 08/27/2018 Other fatigue ICD-10: R53.83 ICD-9: 780.79 06/17/2018 Vitamin B12 deficiency anemia, unspecified ICD-10: D51.9 ICD-9: 281.1 02/24/2018 Unsteadiness on feet ICD-10: R26.81 ICD-9: 781.2 02/24/2018 Type 2 diabetes mellitus without complications ICD-10: E11.9 ICD-9: 250.00 02/24/2018 Chronic pain syndrome ICD-10: G89.4 ICD-9: 338.4 02/24/2018 Pain in left shoulder ICD-10: M25.51 2 ICD-9: 719.41 11/03/2017 Other allergic rhinitis ICD-10: J30. 89 ICD-9: 477.8 08/08/2017 Major depressive disorder, recurrent, mild ICD-10: F33.0 ICD-9: 296.31 08/08/2017 Myalgia ICD-10: M79.1 ICD-9: 729.1 07/10/2017 Sacroiliitis, not elsewhere classified ICD-10: M46.1 ICD-9: 720.2 03/06/2017 Atrophy of thyroid (acquired) ICD-10 : E03.4 ICD-9: 244.8 03/06/2017 Rash and other nonspecific skin eruption ICD-10: R21 ICD-9: 782.1 03/04/2017 Encounter for general adult medical exam ination with abnormal findings ICD-10: Z00.01 ICD-9: V70.0 11/04/2016 Pain in thoracic spine ICD-10: M54.6 ICD-9: 724.1 10/03/2016 Other specified hypothyroidism ICD-1 0: E03.8 ICD-9: 244.8 10/03/2016 Insect bite (nonvenomous) of other part of head, initial encounter ICD-10: S00.86XA ICD-9: 910.4 09/03/2016 Supraventricular tachycardia ICD-10: I47.1 ICD-9: 785.0 07/24/2016 Urticaria, unspecified ICD-10: L50.9 ICD-9: 708.9 12/21/2015 Essential (primary) hypertension ICD -10: I10 ICD-9: 401.9 12/21/2015 Dermatographic urticaria ICD-10: 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 .3 ICD-9: 708.3 12/21/2015 ESSENTIAL HYPERTENSION ICD-9: 401.9 06/23/2015 EDEMA ICD-9: 782.3 06/23 Elevated temperature ICD-9: 780.60 06/23/2015 TACHYCARDIA ICD-9: 785.0 06/21/2015 Dyspnea ICD-9: 786.09 LUMBAGO ICD-9: 724.2 10/2015 Sacroiliitis ICD-9: 720.2 03/28/2015 HYPERLIPIDEMIA ICD-9: 272.4 07/07/2014 DIABETES TYPE II ICD-9: 250.00 07/07/2014 HYPOTHYROIDISM ICD-9: 244.9 07/07/2014 Muscle ache ICD-9: 729.1 07/07/2014 Peripheral neuropathy, idiopathic IC D-9: 356.9 12/20/2013 Dietary counseling and surveillance ICD-9: V65.3 10/25/2013 Vaginal yeast infection ICD-9: 112.1 02/11/2012 DYSURIA ICD-9: 788.1 Abdominal bloating ICD-9: 787.3 02/11/2012 Rectal lump ICD-9: 787.99 02/11/2012 UTI (lower urinary tract infection) ICD-9: 599.0 02/11/2012 Reason For Visit Reason For Visit Effective Dates Notes diabetic foot exam 08/27/2018 hypertension 02/24/2018 depression [...] Ord30 C/HDL 3.5 Ratio 12/30/2018 Free T4 Lpt339 FREE T4 0.64 ng/dL 12/30/2018 %Hba1C Ymw644 % HbA1c 43061-0 6.9 % 12/30/2018 %Hba1C Ugq644 Gluc Ave 151 mg/dL 12/30/2018 Comp Metabolic Fka898 NA 140 mEq/L 12/30/2018 Comp Metabolic Nbr599 K 4.5 mEq/L 12/30/2018 Comp Metabolic Qey387 CL 107 mEq/L 12/30/2018 Comp Metabolic Gcs524 CO2 25.0 mEq/L 12/30/2018 Comp Metabolic Hiz402 AN ION GAP 13 12/30/2018 Comp Metabolic Crb594 GL UCOSE 117 mg/dL 12/30/2018 Comp Metabolic Nci582 Cr eat 0.8 mg/dL 12/30/2018 Comp Metabolic Msy316 eG FR 79 ml/min/1.73m2 12/30 Comp Metabolic Myv633 BUN 17 mg/dL 12/30/2018 Comp Metabolic Jha833 B/ C Ratio 22.4 Ratio 12/30/2018 Comp Metabolic Msn279 CA LCIUM 9.6 mg/dL 12/30/2018 Comp Metabolic Mob906 AL K PHOS 69 U/L 12/30/2018 Comp Metabolic Ted170 T(SGOT) 23 U/L 12/30/2018 Comp Metabolic Eey991 AL T(SGPT) 30 U/L 12/30/2018 Comp Metabolic Qby480 BI LI T 0.4 mg/dL 12/30/2018 Comp Metabolic Ijm111 AL BUMIN 4.2 g/dL 12/30/2018 Comp Metabolic Iiv622 TP RO 6.6 g/dL 12/30/2018 Comp Metabolic Uwv356 GL OB 2.4 g/dL 12/30/2018 Comp Metabolic Yma718 A/ G Ratio 1.8 Ratio 12/30/2018 Comp Metabolic Mts453 Os mo 282 mOsmo 12/30/2018 Tsh Ord6 TSH (3rd IS) 3.74 uIU/mL 12/30/2018 Cbc With Differential Ord2 WBC 6.54 K/ul 12/30/2018 Cbc With Differential Ord2 RBC 4.13 M/ul 12/30/2018 Cbc With Differential Ord2 HGB 12.8 g/dl 12/30/2018 Cbc With Differential Ord2 Neut% 61.6 % 12/30/2018 Cbc With Differential Ord2 HCT 37.5 % 12/30/2018 Cbc With Differential Ord2 MCV 90.8 fl 12/30/2018 Cbc With Differential Ord2 Lymph% 28.0 % 12/30/2018 Cbc With Differential Ord2 MCH 31.0 pg 12/30/2018 Cbc With Differential Ord2 [place]% 8.1 % 12/30/2018 Cbc With Differential Ord2 MCHC 34.1 pg 12/30/2018 Cbc With Differential Ord2 Eos% 2.0 % 12/30/2018 Cbc With Differential Ord2 PLT 276 K/ul 12/30/2018 Cbc With Differential Ord2 Baso% 0.3 % 12/30/2018 Cbc With Differential Ord2 Neut ABS# 4.03 K/ul 12/30/2018 Cbc With Differential Ord2 RDW 13.6 % 12/30/2018 Cbc With Differential Ord2 Lymph ABS# 1.83 K/ul 12/30/2018 Cbc With Differential Ord2 [place] ABS# 0.5 K/ul 12/30/2018 Cbc With Differential Ord2 Eos ABS# 0.1 K/ul 12/30/2018 Cbc With Differential Ord2 Baso ABS# 0.0 K/ul 12/30/2018 Comp Metabolic Jom501 NA 138 mEq/L 02/24/2018 Comp Metabolic Tcv275 K 4.3 mEq/L 02/24/2018 Comp Metabolic Zbw196 CL 103 mEq/L 02/24/2018 Comp Metabolic Ynf623 CO2 27.0 mEq/L 02/24/2018 Comp Metabolic Vur167 AN ION GAP 12 02/24/2018 Comp Metabolic Obz901 GL UCOSE 96 mg/dL 02/24/2018 Comp Metabolic Haf649 Cr eat 0.7 mg/dL 02/24/2018 Comp Metabolic Ymn513 eG FR 86 ml/min/1.73m2 02/24 Comp Metabolic Zwe867 BUN 17 mg/dL 02/24/2018 Comp Metabolic Xth454 B/ C Ratio 23.9 Ratio 02/24/2018 Comp Metabolic Tbm736 CA LCIUM 9.2 mg/dL 02/24/2018 Comp Metabolic Xqc533 AL K PHOS 67 U/L 02/24/2018 Comp Metabolic Bnj947 T(SGOT) 25 U/L 02/24/2018 Comp Metabolic Jfe910 AL T(SGPT) 25 U/L 02/24/2018 Comp Metabolic Hab236 BI LI T 0.3 mg/dL 02/24/2018 Comp Metabolic Eak620 AL BUMIN 3.9 g/dL 02/24/2018 Comp Metabolic Etz629 TP RO 6.5 g/dL 02/24/2018 Comp Metabolic Reu740 GL OB 2.6 g/dL 02/24/2018 Comp Metabolic Cgu592 A/ G Ratio 1.5 Ratio 02/24/2018 Comp Metabolic Fwu359 Os mo 277 mOsmo 02/24/2018 Free T4 Rxp270 FREE T4 0.71 ng/dL 02/24/2018 Tsh Ord6 TSH (3rd IS) 2.53 uIU/mL 02/24/2018 B12 Jcf741 B12 360.00 pg/ml 02/24/2018 Cbc With Differential [...] 30.4 pg 02/24/2018 Cbc With Differential Ord2 [place]% 11.3 % 02/24/2018 Cbc With Differential Ord2 [...] 2.18 K/ul 02/24/2018 Cbc With Differential Ord2 [place] ABS# 0.8 K/ul 02/24/2018 Cbc With Differential Ord2 Eos ABS# 0.2 K/ul 02/24/2018 Cbc With Differential Ord2 Baso ABS# 0.0 K/ul 02/24/2018 %Hba1C Sjc476 % HbA1c 71983-8 6.5 % 02/24/2018 %Hba1C Fsf460 Gluc Ave 140 mg/dL 02/24/2018 Comp Metabolic Cdh847 NA 139 mEq/L 11/03/2017 Comp Metabolic Lek453 K 4.1 mEq/L 11/03/2017 Comp Metabolic Kae793 CL 102 mEq/L 11/03/2017 Comp Metabolic Kzt074 CO2 28.0 mEq/L 11/03/2017 Comp Metabolic Wyd098 AN ION GAP 13 11/03/2017 Comp Metabolic Aee199 GL UCOSE 96 mg/dL 11/03/2017 Comp Metabolic Nvx231 Cr eat 0.8 mg/dL 11/03/2017 Comp Metabolic Qwp211 eG FR 80 ml/min/1.73m2 11/03 Comp Metabolic Cjt546 BUN 16 mg/dL 11/03/2017 Comp Metabolic Uli403 B/ C Ratio 21.3 Ratio 11/03/2017 Comp Metabolic Qoe454 CA LCIUM 9.5 mg/dL 11/03/2017 Comp Metabolic Iza665 AL K PHOS 73 U/L 11/03/2017 Comp Metabolic Lyp667 T(SGOT) 26 U/L 11/03/2017 Comp Metabolic Rnd899 AL T(SGPT) 22 U/L 11/03/2017 Comp Metabolic Zpu967 BI LI T 0.4 mg/dL 11/03/2017 Comp Metabolic Vos039 AL BUMIN 4.1 g/dL 11/03/2017 Comp Metabolic Xta811 TP RO 6.3 g/dL 11/03/2017 Comp Metabolic Knm086 GL OB 2.2 g/dL 11/03/2017 Comp Metabolic Oas469 A/ G Ratio 1.9 Ratio 11/03/2017 Comp Metabolic Tym196 Os mo 279 mOsmo 11/03/2017 Free T4 Dze480 FREE T4 0.75 ng/dL 11/03/2017 %Hba1C Kbi051 % HbA1c 21136-0 6.4 % 11/03/2017 %Hba1C Bur010 Gluc Ave 137 mg/dL 11/03/2017 Cbc With Differential Ord2 WBC 6.55 [...] 29.8 pg 11/03/2017 Cbc With Differential Ord2 [place]% 10.4 % 11/03/2017 Cbc With Differential Ord2 Eos% 2.0 % 11/03/2017 Cbc With Differential Ord2 MCHC 32.5 pg 11/03/2017 Cbc With Differential Ord2 PLT 228 K/ul 11/03/2017 Cbc With Differential Ord2 Baso% 0.3 % 11/03/2017 Cbc With Differential Ord2 RDW 13.9 % 11/03/2017 Cbc With Differential Ord2 Neut ABS# 3.54 K/ul 11/03/2017 Cbc With Differential Ord2 Lymph ABS# 2.18 K/ul 11/03/2017 Cbc With Differential Ord2 [place] ABS# 0.7 K/ul 11/03/2017 Cbc With Differential Ord2 Eos ABS# 0.1 K/ul 11/03/2017 Cbc With Differential Ord2 Baso ABS# 0.0 K/ul 11/03/2017 Tsh Ord6 hTSH II 3.98 uIU/mL 11/03/2017 Microalbumin Rrc841 Micr oAlb <0.7 mg/dL 03/04/2017 %Hba1C Jjs078 % HbA1c 44797-5 6.2 % 03/04/2017 %Hba1C Guo554 Gluc Ave 131 mg/dL 03/04/2017 Cbc With Differential Ord2 WBC 6.02 K/ul 03/04/2017 Cbc With Differential Ord2 RBC 4.15 M/ul 03/04/2017 Cbc With Differential Ord2 HGB 12.7 g/dl 03/04/2017 Cbc With Differential Ord2 Neut% 57.0 % 03/04/2017 Cbc With Differential Ord2 HCT 38.5 % 03/04/2017 Cbc With Differential Ord2 Lymph% 30.6 % 03/04/2017 Cbc With Differential Ord2 MCV 92.8 fl 03/04/2017 Cbc With Differential Ord2 [place]% 9.6 % 03/04/2017 Cbc With Differential Ord2 MCH 30.6 pg 03/04/2017 Cbc With Differential Ord2 Eos% 2.3 % 03/04/2017 Cbc With Differential Ord2 MCHC 33.0 pg 03/04/2017 Cbc With Differential Ord2 PLT 262 K/ul 03/04/2017 Cbc With Differential Ord2 Baso% 0.5 % 03/04/2017 Cbc With Differential Ord2 Neut ABS# 3.43 K/ul 03/04/2017 Cbc With Differential Ord2 RDW 13.3 % 03/04/2017 Cbc With Differential Ord2 Lymph ABS# 1.84 K/ul 03/04/2017 Cbc With Differential Ord2 [place] ABS# 0.6 K/ul 03/04/2017 Cbc With Differential Ord2 Eos ABS# 0.1 K/ul 03/04/2017 Cbc With Differential Ord2 Baso ABS# 0.0 K/ul 03/04/2017 Comp Metabolic Ueb317 NA 139 mEq/L 03/04/2017 Comp Metabolic Fli526 K 4.4 mEq/L 03/04/2017 Comp Metabolic Omn227 CL 104 mEq/L 03/04/2017 Comp Metabolic Hff221 CO2 27.0 mEq/L 03/04/2017 Comp Metabolic Tms572 AN ION GAP 12 03/04/2017 Comp Metabolic Wzm169 GL UCOSE 95 mg/dL 03/04/2017 Comp Metabolic Xaw015 Cr eat 0.8 mg/dL 03/04/2017 Comp Metabolic Duw833 eG FR 79 ml/min/1.73m2 03/04 Comp Metabolic Wqi345 BUN 13 mg/dL 03/04/2017 Comp Metabolic Sjn407 B/ C Ratio 17.1 Ratio 03/04/2017 Comp Metabolic Gwf671 CA LCIUM 9.2 mg/dL 03/04/2017 Comp Metabolic Wwx732 AL K PHOS 62 U/L 03/04/2017 Comp Metabolic Ewu011 T(SGOT) 22 U/L 03/04/2017 Comp Metabolic Wqr269 AL T(SGPT) 22 U/L 03/04/2017 Comp Metabolic Ugk998 BI LI T 0.5 mg/dL 03/04/2017 Comp Metabolic Ldw329 AL BUMIN 3.8 g/dL 03/04/2017 Comp Metabolic Van512 TP RO 6.2 g/dL 03/04/2017 Comp Metabolic Cud616 GL OB 2.4 g/dL 03/04/2017 Comp Metabolic Flv612 A/ G Ratio 1.6 Ratio 03/04/2017 Comp Metabolic Glj520 Os mo 277 mOsmo 03/04/2017 Lipid Ord30 CHOL 125 mg/dL 03/04/2017 Lipid Ord30 HDL 38.0 mg/dl 03/04/2017 Lipid Ord30 TRIG 144 mg/dL 03/04/2017 Lipid Ord30 LDL 58 mg/dL 03/04/2017 Lipid Ord30 C/HDL 3.3 Ratio 03/04/2017 Tsh Ord6 hTSH II 1.77 uIU/mL 03/04/2017 Comp Metabolic Osd972 NA 136 mEq/L 10/04/2016 Comp Metabolic Xrn715 K 4.0 mEq/L 10/04/2016 Comp Metabolic Wcz882 CL 100 mEq/L 10/04/2016 Comp Metabolic Wjb271 CO2 29.0 mEq/L 10/04/2016 Comp Metabolic Zvm860 AN ION GAP 11 10/04/2016 Comp Metabolic Bzp933 GL UCOSE 92 mg/dL 10/04/2016 Comp Metabolic Fnp843 Cr eat 0.7 mg/dL 10/04/2016 Comp Metabolic Yzb981 eG FR 85 ml/min/1.73m2 10/04 Comp Metabolic Vbl653 BUN 17 mg/dL 10/04/2016 Comp Metabolic Udd504 B/ C Ratio 23.6 Ratio 10/04/2016 Comp Metabolic Wmt082 CA LCIUM 9.7 mg/dL 10/04/2016 Comp Metabolic Aqj057 AL K PHOS 86 U/L 10/04/2016 Comp Metabolic Wqi065 T(SGOT) 23 U/L 10/04/2016 Comp Metabolic Ggq867 AL T(SGPT) 27 U/L 10/04/2016 Comp Metabolic Ipj011 BI LI T 0.3 mg/dL 10/04/2016 Comp Metabolic Xvu717 AL BUMIN 4.3 g/dL 10/04/2016 Comp Metabolic Ret969 TP RO 6.9 g/dL 10/04/2016 Comp Metabolic Kti693 GL OB 2.6 g/dL 10/04/2016 Comp Metabolic Taf986 A/ G Ratio 1.6 Ratio 10/04/2016 Comp Metabolic Buv814 Os mo 273 mOsmo 10/04/2016 Tsh Ord6 hTSH II 3.75 uIU/mL 10/04/2016 B12 Mzp569 B12 440.00 pg/ml 10/04/2016 Free T4 Duh816 FREE T4 0.77 ng/dL 10/04/2016 Cbc With [...] 30.6 pg 10/04/2016 Cbc With Differential Ord2 [place]% 8.0 % 10/04/2016 Cbc With Differential Ord2 [...] 2.77 K/ul 10/04/2016 Cbc With Differential Ord2 [place] ABS# 0.7 K/ul 10/04/2016 Cbc With Differential Ord2 Eos ABS# 0.1 K/ul 10/04/2016 Cbc With Differential Ord2 Baso ABS# 0.0 K/ul 10/04/2016 Free T4 Wzk788 FREE T4 0.68 ng/dL 05/17/2016 Tsh Ord6 hTSH II 3.31 uIU/mL 05/17/2016 Alyssa Reflex Profile [id number] ALYSSA (MARCELLA) SCREEN NONE DETECTED 016 C-Reactive Protein Qnt Crqnt CRP 0.2 mg/dl 12/22/2015 Free T4 Pbf763 FREE T4 0.70 ng/dL 12/22/2015 Cbc With Differential Ord2 WBC 5.83 K/ul 12/22/2015 Cbc With Differential Ord2 RBC 4.17 M/ul 12/22/2015 Cbc With Differential Ord2 HGB 12.5 g/dl 12/22/2015 Cbc With Differential Ord2 Neut% 54.7 % 12/22/2015 Cbc With Differential Ord2 HCT 38.5 % 12/22/2015 Cbc With Differential Ord2 Lymph% 35.3 % 12/22/2015 Cbc With Differential Ord2 MCV 92.3 fl 12/22/2015 Cbc With Differential Ord2 MCH 30.0 pg 12/22/2015 Cbc With Differential Ord2 [place]% 7.5 % 12/22/2015 Cbc With Differential Ord2 MCHC 32.5 pg 12/22/2015 Cbc With Differential Ord2 Eos% 2.2 % 12/22/2015 Cbc With Differential Ord2 Baso% 0.3 % 12/22/2015 Cbc With Differential Ord2 PLT 260 K/ul 12/22/2015 Cbc With Differential Ord2 RDW 14.1 % 12/22/2015 Cbc With Differential Ord2 Neut ABS# 3.18 K/ul 12/22/2015 Cbc With Differential Ord2 Lymph ABS# 2.06 K/ul 12/22/2015 Cbc With Differential Ord2 [place] ABS# 0.4 K/ul 12/22/2015 Cbc With Differential Ord2 Eos ABS# 0.1 K/ul 12/22/2015 Cbc With Differential Ord2 Baso ABS# 0.0 K/ul 12/22/2015 Cbc With Differential Ord2 New Analyzer Notice Please note new ref ranges s tarting 11-29-2015 due to implemntation of new five part differential hematolgy analyzer. 12/22/2015 Ra Factor Yri214 RA FACT OR <10 IU/ml 12/22/2015 Comp Metabolic Tuh381 NA 138 mEq/L 12/22/2015 Comp Metabolic Dmc454 K 4.3 mEq/L 12/22/2015 Comp Metabolic Bhy654 CL 102 mEq/L 12/22/2015 Comp Metabolic Faa065 CO2 28.0 mEq/L 12/22/2015 Comp Metabolic Wyr459 AN ION GAP 12 12/22/2015 Comp Metabolic Hwn088 GL UCOSE 114 mg/dL 12/22/2015 Comp Metabolic Zmk322 Cr eat 0.8 mg/dL 12/22/2015 Comp Metabolic Que634 eG FR 80 ml/min/1.73m2 12/22 Comp Metabolic Hdf310 BUN 18 mg/dL 12/22/2015 Comp Metabolic Uee401 B/ C Ratio 23.7 Ratio 12/22/2015 Comp Metabolic Wcj000 CA LCIUM 9.4 mg/dL 12/22/2015 Comp Metabolic Ijm463 AL K PHOS 75 U/L 12/22/2015 Comp Metabolic Dwv082 T(SGOT) 19 U/L 12/22/2015 Comp Metabolic Izg471 AL T(SGPT) 20 U/L 12/22/2015 Comp Metabolic Fvi672 BI LI T 0.5 mg/dL 12/22/2015 Comp Metabolic Lxk820 AL BUMIN 3.9 g/dL 12/22/2015 Comp Metabolic Jst184 TP RO 6.2 g/dL 12/22/2015 Comp Metabolic Zip065 GL OB 2.3 g/dL 12/22/2015 Comp Metabolic Rir969 A/ G Ratio 1.7 Ratio 12/22/2015 Comp Metabolic Zsw904 Os mo 278 mOsmo 12/22/2015 Sed Rate Ord21 ESR 15 mm/hr 12/22/2015 %Hba1C Zie225 % HbA1c 08189-6 6.2 % 12/22/2015 %Hba1C Buo585 Gluc Ave 131 mg/dL 12/22/2015 Lipid Ord30 CHOL 150 mg/dL 12/22/2015 Lipid Ord30 HDL 49.0 mg/dl 12/22/2015 Lipid Ord30 TRIG 108 mg/dL 12/22/2015 Lipid Ord30 LDL 79 mg/dL 12/22/2015 Lipid Ord30 C/HDL 3.1 Ratio 12/22/2015 Tsh Ord6 hTSH II 6.78 uIU/mL 12/22/2015 Cbc With Differential Ord2 WBC 8.2 [...] Ord2 RDW 14.2 % 06/21/2015 Comp Metabolic Izt491 NA 135 mEq/L 06/21/2015 Comp Metabolic Syp734 K 4.2 mEq/L 06/21/2015 Comp Metabolic Vny698 CL 99 mEq/L 06/21/2015 Comp Metabolic Ovf285 CO2 27.0 mEq/L 06/21/2015 Comp Metabolic Ice720 AN ION GAP 13 06/21/2015 Comp Metabolic Xls028 GL UCOSE 94 mg/dL 06/21/2015 Comp Metabolic Qgj828 Cr eat 0.8 mg/dL 06/21/2015 Comp Metabolic Zmx117 eG FR 81 ml/min/1.73m2 06/21 Comp Metabolic Wge048 BUN 16 mg/dL 06/21/2015 Comp Metabolic Vsr169 B/ C Ratio 21.3 Ratio 06/21/2015 Comp Metabolic Uub844 CA LCIUM 9.4 mg/dL 06/21/2015 Comp Metabolic Xhe342 AL K PHOS 164 U/L 06/21/2015 Comp Metabolic Fbw337 T(SGOT) 22 U/L 06/21/2015 Comp Metabolic Qlo952 AL T(SGPT) 23 U/L 06/21/2015 Comp Metabolic Lqm694 BI LI T 0.4 mg/dL 06/21/2015 Comp Metabolic Mfu052 AL BUMIN 4.0 g/dL 06/21/2015 Comp Metabolic Lka644 TP RO 6.6 g/dL 06/21/2015 Comp Metabolic Njb349 GL OB 2.6 g/dL 06/21/2015 Comp Metabolic Ciy237 A/ G Ratio 1.5 Ratio 06/21/2015 Comp Metabolic Prz490 Os mo 271 mOsmo 06/21/2015 URINALYSIS NONAUTO W/O SCOPE 45928 Specific [place] 1.010 DateTime(Free Text in ) URINALYSIS NONAUTO W/O SCOPE 93478 PH 6.0 DateTime(Free [place] t in Aprima) URINALYSIS NONAUTO W/O SCOPE 54736 GLUCOSE NEG DateTime(Free [place] t in Aprima) URINALYSIS NONAUTO W/O SCOPE 62948 Protein NEG DateTime(Free [place] t in Aprima) URINALYSIS NONAUTO W/O SCOPE 85754 Blood TRACE DateTime(Free T ext in ) URINALYSIS NONAUTO W/O SCOPE 69650 Bilirubin NEG DateTime(Free [place] t in ) URINALYSIS NONAUTO W/O SCOPE 08180 Ketones NEG DateTime(Free Te xt in Apr) URINALYSIS NONAUTO W/O SCOPE 12340 Urobilinogen NEG DateTime(Free Text in ) URINALYSIS NONAUTO W/O SCOPE 25643 Nitrite NEG DateTime(Free [place] t in Aprima) URINALYSIS NONAUTO W/O SCOPE 71912 Leukocytes NEG DateTime(Free Text in ) UA 51871 Specific [place] 1.020 DateTime(Free Text in ) UA 82124 PH 5.0 DateTime(Free Text in ) UA 15873 Protein neg DateTime(Free Text in Febima ) UA 61229 Blood neg DateTime(Free Text in ) UA 07746 Bilirubin neg DateTime(Free Text in ) UA 12978 Ketones neg DateTime(Free Text in Aprima ) UA 96604 Urobilinogen 0.2 DateTime(Free Text in ) UA 62228 Nitrite neg DateTime(Free Text in ) UA 40662 Leukocytes neg DateTime(Free Text in ) Review of Systems System Result Effective Dates Constitutional No recent illness 08/27/2018 Constitutional No [...] bilaterally 09/03/2016 None Full Exam - General 1995 Constitutional general appearance Overall: well developed 08/21/2016 [...] murmurs 10/19/2013 None Full Exam - General 1995 Abdomen abdominal exam Overall: no tenderness 10/19/2013 None Full Exam - General 1995 Abdomen [...] nourished 10/19/2013 None Full Exam - General 1995 Eyes [...] 1994 Ears/Nose/Throat oral cavity/pharynx/larynx Overall: no masses 05/25/2013 [...] clear 05/18/2012 None Full Exam - General 1995 Ears/Nose/Throat oral cavity/pharynx/larynx Overall: no masses 05/18/2012 [...] rate 02/11/2012 None Full Exam - General 1995 Cardiovascular auscultation of heart Overall: normal heart sounds 02/11/2012 None Full Exam - General 1994 Cardiovascular auscultation of heart Overall: no murmurs 02/11/2012 None Full Exam - General 1994 Cardiovascular inspection of carotid pulses Overall: strong, bilaterally equal, no bruits 02/11/2012 None Full Exam - General 1995 Abdomen abdominal exam Overall: no tenderness 02/11/2012 None Full Exam - General 1994 Abdomen abdominal exam Overall: normal bowel sounds 02/11/2012 None Full Exam - General 1995 Musculoskeletal head and neck Overall: head atraumatic 02/11/2012 None Full Exam - General 1995 Constitutional general appearance Overall: well developed 02/11/2012 [...] 09/03/2016 URINALYSIS NONAUTO W /O SCOPE CPT-4: 51488 06/23/2015 TRIAMCINOLONE ACET I [place] NOS CPT-4: J3301 03/28/2015 FOOT EXAM PERFORMED SNOMED CT: 70949618 CPT-4: 2028F 12/20/2013 PRESCRIP TRANSMIT A ERX SY CPT-4: G8553 10/25/2013 PRESCRIP TRANSMIT A ERX SY CPT-4: G8553 10/01/2012 URINALYSIS NONAUTO W /O SCOPE CPT-4: 01097 02/11/2012 PRESCRIP TRANSMIT A ERX SY CPT-4: G8553 02/11/2012 Vital Signs Date Vital 08/27/2018 Blood Pressure 1: 150/72 Code: 8480-6 BMI: 33.8 Code: 05548-9 Heart Rate 1: 77 bpm Height: 5'3" SpO2: 98% Weight: 191 lbs 02/24/2018 Blood Pressure 1: 140/72 Code: 8480-6 BMI: 33.5 Code: 70632-5 Heart Rate 1: 78 bpm Height: 5'3" SpO2: 98% Weight: 189 lbs 11/03/2017 Blood Pressure 1: 140/72 Code: 8480-6 BMI: 33.2 Code: 67714-9 Heart Rate 1: 71 bpm Height: 5'3" SpO2: 98% Weight: 187 lbs 8 oz 08/08/2017 Blood Pressure 1: 140/66 Code: 8480-6 BMI: 33.1 Code: 56430-4 Heart Rate 1: 73 bpm Height: 5'3" SpO2: 97% Weight: 187 lbs 07/10/2017 Blood Pressure 1: 144/74 Code: 8480-6 BMI: 33.5 Code: 45441-4 Heart Rate 1: 78 bpm Height: 5'3" SpO2: 94% Weight: 189 lbs 03/06/2017 Blood Pressure 1: 140/86 Code: 8480-6 BMI: 32.9 Code: 30200-7 Heart Rate 1: 68 bpm Height: 5'3" SpO2: 98% Weight: 186 lbs 03/04/2017 Blood Pressure 1: 136/82 Code: 8480-6 Heart Rate 1: 61 bpm Height: 5'3" SpO2: 97% Temperature: 36.6 (C ) / 97.8 (F) Weight: 11/04/2016 Blood Pressure 1: 146/76 Code: 8480-6 BMI: 34.7 Code: 13250-6 Heart Rate 1: 70 bpm Height: 5'3" SpO2: 97% Waist Measure (cm): 107 cm Weight: 196 lbs 10/23/2016 Blood Pressure 1: 148/78 Code: 8480-6 BMI: 34.7 Code: 36058-0 Heart Rate 1: 68 bpm Height: 5'3" SpO2: 97% Weight: 196 lbs 10/03/2016 Blood Pressure 1: 142/78 Code: 8480-6 BMI: 34.7 Code: 80566-2 Heart Rate 1: 72 bpm Height: 5'3" SpO2: 98% Weight: 196 lbs 09/03/2016 Blood Pressure 1: 128/88 Code: 8480-6 Heart Rate 1: 86 bpm SpO2: 96% 08/21/2016 Blood Pressure 1: 128/62 Code: 8480-6 BMI: 35.1 Code: 64515-8 Heart Rate 1: 80 bpm Height: 5'3" SpO2: 98% Weight: 198 lbs 07/24/2016 Blood Pressure 1: 150/86 Code: 8480-6 BMI: 34.4 Code: 15659-8 Heart Rate 1: 72 bpm Height: 5'3" SpO2: 97% Weight: 194 lbs 04/24/2016 Blood Pressure 1: 138/76 Code: 8480-6 BMI: 34.2 Code: 85902-5 Heart Rate 1: 71 bpm Height: 5'3" SpO2: 98% Weight: 193 lbs 01/18/2016 Blood Pressure 1: 140/72 Code: 8480-6 BMI: 33.4 Code: 63901-1 Heart Rate 1: 69 bpm Height: 5'3" SpO2: 98% Weight: 188 lbs 8 oz 12/21/2015 Blood Pressure 1: 158/78 Code: 8480-6 BMI: 33.3 Code: 86096-9 Heart Rate 1: 66 bpm Height: 5'3" SpO2: 98% Weight: 188 lbs 08/17/2015 Blood Pressure 1: 132/76 Code: 8480-6 BMI: 30.5 Code: 82967-2 Heart Rate 1: 66 bpm Height: 5'3" Respiratory Rate: 18 bpm SpO2: 97% Weight: 172 lbs 06/23/2015 Blood Pressure 1: 160/80 Code: 8480-6 Blood Pressure 2: 170/86 Code: 8480-6 BMI: 28.3 Code: 24204-7 Heart Rate 1: 96 bpm Height: 5'3" SpO2: 98% Temperature: 37.3 (C ) / 99.1 (F) Weight: 160 lbs 06/21/2015 Blood Pressure 1: 132/78 Code: 8480-6 Heart Rate 1: 106 bpm SpO2: 98% Temperature: 37.3 (C ) / 99.2 (F) Weight: 166 lbs 03/28/2015 Blood Pressure 1: 160/84 Code: 8480-6 Blood Pressure 2: 138/78 Code: 8480-6 BMI: 32.1 Code: 99506-1 Heart Rate 1: 86 bpm Height: 5'3" SpO2: 97% Weight: 181 lbs 07/07/2014 Blood Pressure 1: 138/82 Code: 8480-6 BMI: 32.6 Code: 16198-7 Heart Rate 1: 82 bpm Height: 5'3" SpO2: 96% Weight: 184 lbs 03/24/2014 Blood Pressure 1: 138/64 Code: 8480-6 BMI: 32.4 Code: 80927-1 Heart Rate 1: 72 bpm Height: 5'3" Weight: 183 lbs 01/20/2014 Blood Pressure 1: 149/69 Code: 8480-6 Blood Pressure 2: 170/82 Code: 8480-6 Heart Rate 1: 81 bpm Weight: 183 lbs 12/20/2013 Blood Pressure 1: 150/78 Code: 8480-6 BMI: 32.6 Code: 88315-6 Heart Rate 1: 76 bpm Height: 5'3" Weight: 184 lbs 10/25/2013 Blood Pressure 1: 167/80 Code: 8480-6 BMI: 33.3 Code: 89361-3 Heart Rate 1: 60 bpm Height: 5'3" Weight: 188 lbs 10/19/2013 Blood Pressure 1: 136/78 Code: 8480-6 BMI: 33.1 Code: 92462-9 Height: 5'3" Weight: 187 lbs 05/25/2013 Blood Pressure 1: 134/82 Code: 8480-6 BMI: 33.5 Code: 35636-6 Heart Rate 1: 80 bpm Height: 5'3" Weight: 189 lbs 02/18/2013 Blood Pressure 1: 158/88 Code: 8480-6 Blood Pressure 2: 158/90 Code: 8480-6 BMI: 33.7 Code: 93370-3 Heart Rate 1: 80 bpm Height: 5'3" Weight: 190 lbs 10/01/2012 Blood Pressure 1: 138/62 Code: 8480-6 Heart Rate 1: 76 bpm Weight: 184 lbs 05/18/2012 Blood Pressure 1: 150/82 Code: 8480-6 Blood Pressure 2: 136/84 Code: 8480-6 BMI: 32.1 Code: 47215-6 Heart Rate 1: 71 bpm Height: 5'3" SpO2: 98% Weight: 181 lbs 02/11/2012 Blood Pressure 1: 126/56 Code: 8480-6 Heart Rate 1: 68 bpm Respiratory Rate: 16 bpm Weight: 184 lbs 01/14/2012 Blood Pressure 1: 158/80 Code: 8480-6 BMI: 33.9 Code: 58005-8 Heart Rate 1: 60 bpm Height: 5'3" Respiratory Rate: 16 bpm Weight: 191 lbs 8 oz Functional Status No Functional Status data History of Present Illness Symptom Name Status Resu lt Effective Date Notes diabetic foot exam Quality chronic 08/27/2018 None [...] readings at home 02/11/2012 None hypothyroid Quality colorer miranda 02/11/2012 had a doseage change want [...] Encounters Encounter Performer Loca tion Codes Date ([id number]) 79353 EST. P ATIENT, LEVEL IV Diagnosis: Type 2 diabetes mellitus with diabetic polyneuropathy[ICD10: E11.42] Diagnosis: Pain in left leg[ICD10: M79.605] Diagnosis: Pain in right leg[ICD10: M79.604] [facility] CPT-4: 71786 08/27/2018 ([id number]) Miscellaneou s no charge Diagnosis: Other fatigue[ICD10: R53.83] [facility] CPT-4: 47186 06/17/2018 ([id number]) 87239 EST. P ATIENT, LEVEL IV Diagnosis: Essential (primary) hypertension[ICD10: I10] Diagnosis: Hypothyroidism, unspecified[ICD10: E03.9] Diagnosis: Type 2 diabetes mellitus without complications[ICD10: E11.9] Diagnosis: Chronic pain syndrome[ICD10: G89.4] Diagnosis: Vitamin B12 deficiency anemia, unspecified[ICD10: D51.9] Diagnosis: Unsteadiness on feet[ICD10: R26.81] Nicki Ott MD, [facility] CPT-4: 87017 02/24/2018 ([id number]) 03304 EST. P ATIENT, LEVEL IV Diagnosis: Type 2 diabetes mellitus without complications[ICD10: E11.9] Diagnosis: Hypothyroidism, unspecified[ICD10: E03.9] Diagnosis: Essential (primary) hypertension[ICD10: I10] Diagnosis: Pain in left shoulder[ICD10: M25.512] Nicki Ott MD, [facility] CPT-4: 73993 11/03/2017 ([id number]) 16760 EST. P ATIENT, LEVEL III Diagnosis: Essential (primary) hypertension[ICD10: I10] Diagnosis: Major depressive disorder, recurrent, mild[ICD10: F33.0] Diagnosis: Other allergic rhinitis[ICD10: J30.89] Nicki Ott MD, [facility] CPT-4: 35106 08/08/2017 ([id number]) 22079 EST. P ATIENT, LEVEL IV Diagnosis: Hypothyroidism, unspecified[ICD10: E03.9] Diagnosis: Major depressive disorder, recurrent, mild[ICD10: F33.0] Diagnosis: Myalgia[ICD10: M79.1] Diagnosis: Chronic pain syndrome[ICD10: G89.4] Diagnosis: Essential (primary) hypertension[ICD10: I10] Nicki Ott MD, [facility] CPT-4: 32796 07/10/2017 ([id number]) 28295 EST. P ATIENT, LEVEL IV Diagnosis: Essential (primary) hypertension[ICD10: I10] Diagnosis: Atrophy of thyroid (acquired)[ICD10: E03.4] Diagnosis: Sacroiliitis, not elsewhere classified[ICD10: M46.1] Diagnosis: Mixed hyperlipidemia[ICD10: E78.2] Carmelina Ott MD, [facility] CPT- 4: 31880 03/06/2017 ([id number]) 78944 EST. P ATIENT, LEVEL II Diagnosis: Rash and other nonspecific skin eruption[ICD10: R21] Nicki Ott MD, [facility] CPT-4: 03615 03/04/2017 ([id number]) 18616 EST. P ATIENT, LEVEL IV Diagnosis: Type 2 diabetes mellitus without complications[ICD10: E11.9] Diagnosis: Essential (primary) hypertension[ICD10: I10] Diagnosis: Atrophy of thyroid (acquired)[ICD10: E03.4] [facility] CPT-4: 01814 10/23/2016 [id number] EST. PATIENT, LEVEL III Diagnosis: Other specified hypothyroidism[ICD10: E03.8] Diagnosis: Other specified anemias[ICD10: D64.89] Diagnosis: Pain in thoracic spine[ICD10: M54.6] Luz Ott MD, [facility] CPT- 4: 39374 10/03/2016 64512 EST. PATIENT, LEVEL II Diagnosis: Insect bite (nonvenomous) of other part of head, initial encounter[ICD10: S00.86XA] Nicki Ott MD, [facility] CPT-4: 57060 09/03/2016 ([id number]) 07999 EST. P ATIENT, LEVEL IV Diagnosis: Type 2 diabetes mellitus without complications[ICD10: E11.9] Diagnosis: Hypothyroidism, unspecified[ICD10: E03.9] Diagnosis: Essential (primary) hypertension[ICD10: I10] [facility] CPT-4: 14477 08/21/2016 ([id number]) 75934 EST. P ATIENT, LEVEL IV Diagnosis: Essential (primary) hypertension[ICD10: I10] Diagnosis: Supraventricular tachycardia[ICD10: I47.1] Diagnosis: Other fatigue[ICD10: R53.83] Carmelina Ott MD, [facility] CPT-4: 73129 07/24/2016 ([id number]) 01693 EST. P ATIENT, LEVEL IV Diagnosis: Type 2 diabetes mellitus without complications[ICD10: E11.9] Diagnosis: Essential (primary) hypertension[ICD10: I10] Diagnosis: Hypothyroidism, unspecified[ICD10: E03.9] [facility] CPT-4: 82951 04/24/2016 ([id number]) 06733 EST. P ATIENT, LEVEL IV Diagnosis: Type 2 diabetes mellitus without complications[ICD10: E11.9] Diagnosis: Type 2 diabetes mellitus with diabetic polyneuropathy[ICD10: E11.42] Carmelina Ott MD, [facility] CPT-4: 36502 01/18/2016 ([id number]) 46249 EST. P ATIENT, LEVEL IV Diagnosis: Urticaria, unspecified[ICD10: L50.9] Diagnosis: Dermatographic urticaria[ICD10: L50.3] Diagnosis: Hypothyroidism, unspecified[ICD10: E03.9] Diagnosis: Type 2 diabetes mellitus without complications[ICD10: E11.9] Diagnosis: Mixed hyperlipidemia[ICD10: E78.2] Diagnosis: Myalgia[ICD10: M79.1] Diagnosis: Essential (primary) hypertension[ICD10: I10] [facility] CPT-4: 78385 12/21/2015 ([id number]) 77343 EST. P ATIENT, LEVEL IV Diagnosis: Hypothyroidism, unspecified[ICD10: E03.9] Diagnosis: Essential (primary) hypertension[ICD10: I10] Diagnosis: Urticaria, unspecified[ICD10: L50.9] Carmelina Ott MD, [facility] CPT-4: 00018 08/17/2015 ([id number]) Miscellaneou s no charge Diagnosis: ESSENTIAL HYPERTENSION[ICD9: 401.9] Diagnosis: Elevated temperature[ICD9: 780.60] Diagnosis: EDEMA[ICD9: 782.3] Katja Ott MD, [facility] CPT-4: 99852 06/23/2015 ([id number]) 58832 EST. P ATIENT, LEVEL IV Diagnosis: ESSENTIAL HYPERTENSION[ICD9: 401.9] Diagnosis: TACHYCARDIA[ICD9: 785.0] Diagnosis: Dyspnea[ICD9: 786.09] Katja Ott MD, [facility] CPT-4: 62981 06/21/2015 ([id number]) 36352 EST. P ATIENT, LEVEL III Diagnosis: Sacroiliitis[ICD9: 720.2] Diagnosis: LUMBAGO[ICD9: 724.2] Nicki Ott MD, [facility] CPT-4: 53086 03/28/2015 ([id number]) 25319 EST. P ATIENT, LEVEL IV Diagnosis: HYPOTHYROIDISM[ICD9: 244.9] Diagnosis: ESSENTIAL HYPERTENSION[ICD9: 401.9] Diagnosis: DIABETES TYPE II[ICD9: 250.00] Diagnosis: HYPERLIPIDEMIA[ICD9: 272.4] Diagnosis: Muscle ache[ICD9: 729.1] Carmelina Ott MD, [facility] CPT-4: 77298 07/07/2014 ([id number]) 08159 EST. P ATIENT, LEVEL IV Diagnosis: DIABETES TYPE II[SNOMED: 709570242] Diagnosis: ESSENTIAL HYPERTENSION[SNOMED: 89838300] Diagnosis: HYPOTHYROIDISM[ICD9: 244.9] Carmelina Ott MD, [facility] CPT-4: 61339 03/24/2014 ([id number]) 81021 EST. P ATIENT, LEVEL III Diagnosis: DIABETES TYPE II[SNOMED: 937006305] Diagnosis: ESSENTIAL HYPERTENSION[SNOMED: 98732136] [facility] CPT-4: 30565 01/20/2014 ([id number]) 18909 EST. P ATIENT, LEVEL IV Diagnosis: DIABETES TYPE II[SNOMED: 612268698] Diagnosis: ESSENTIAL HYPERTENSION[SNOMED: 38941018] Diagnosis: Peripheral neuropathy, idiopathic[ICD9: 356.9] [facility] CPT-4: 26258 12/20/2013 ([id number]) 95636 EST. P ATIENT, LEVEL IV Diagnosis: DIABETES TYPE II[SNOMED: 042492837] Diagnosis: ESSENTIAL HYPERTENSION[SNOMED: 62346666] Diagnosis: Dietary counseling and surveillance[ICD9: V65.3] [facility] CPT-4: 34184 10/25/2013 ([id number]) 62331 EST. P ATIENT, LEVEL IV Diagnosis: DIABETES TYPE II[SNOMED: 694806412] Diagnosis: ESSENTIAL HYPERTENSION[SNOMED: 78153595] Diagnosis: HYPOTHYROIDISM[ICD9: 244.9] Carmelina Ott MD, [facility] CPT-4: 69660 10/19/2013 ([id number]) 80421 EST. P ATIENT, LEVEL IV Diagnosis: ESSENTIAL HYPERTENSION[SNOMED: 36703246] Diagnosis: DIABETES TYPE II[SNOMED: 801604525] Diagnosis: HYPOTHYROIDISM[ICD9: 244.9] Carmelina Ott MD [facility] CPT-4: 50184 05/25/2013 ([id number]) 92380 EST. P ATIENT, LEVEL IV Diagnosis: DIABETES TYPE II[SNOMED: 926909457] Diagnosis: ESSENTIAL HYPERTENSION[SNOMED: 13799740] Diagnosis: HYPOTHYROIDISM[ICD9: 244.9] Carmelina Ott MD [facility] CPT-4: 21596 02/18/2013 ([id number]) 25988 EST. P ATIENT, LEVEL III Diagnosis: ESSENTIAL HYPERTENSION[SNOMED: 40898748] Carmelina Ott MD, [facility] CPT-4: 31221 10/01/2012 ([id number]) 64582 EST. P ATIENT, LEVEL IV Diagnosis: DIABETES TYPE II[SNOMED: 503744263] Diagnosis: ESSENTIAL HYPERTENSION[SNOMED: 69711465] Carmelina Ott MD, [facility] CPT-4: 03366 05/18/2012 ([id number]) 38388 EST. P ATIENT, LEVEL IV Diagnosis: DIABETES TYPE II[SNOMED: 117279323] Diagnosis: HYPOTHYROIDISM[ICD9: 244.9] Diagnosis: UTI (lower urinary tract infection)[ICD9: 599.0] Diagnosis: Vaginal yeast infection[ICD9: 112.1] Diagnosis: Rectal lump[ICD9: 787.99] Diagnosis: Abdominal bloating[ICD9: 787.3] Carmelina Ott MD, [facility] CPT-4: 62857 02/11/2012 ([id number]) 37649 EST. P ATIENT, LEVEL IV Diagnosis: ESSENTIAL HYPERTENSION[SNOMED: 53229597] Diagnosis: DIABETES TYPE II[SNOMED: 713703750] Diagnosis: HYPERLIPIDEMIA[ICD9: 272.4] Diagnosis: HYPOTHYROIDISM[ICD9: 244.9] [facility] CPT-4: 13957 01/14/2012 Plan of Care Planned Activity Notes C odes Status Date Patient Education: Patient Medication Summary Completed 12/31/2018 Care Plan: SCREENINGMAMMOGRAPHYDIGITAL LOINC : 47227-7 Pending 12/31/2018 [phone] ([facility] min) Moderate 12/28/2018 Patient Education: Patient Medication Summary Completed 12/21/2018 Visit Plan: Diabetes Mellitus - con leilalled - per recent FSBS reports. I have [...] Cymbalta. 08/27/2018 [phone] (15 min) Moderate 08/27/2018 Patient Education: [...] Gait instabilty-patient going to do PT at [facility] 02/24/2018 Appointment: Nicki Cabral WPtel: [phone] [facility] [place] [address] (30 min) Complex 02/24/2018 Patient Education: Patient [...] not improved. 11/03/2017 Appointment: Nicki Cabral WPtel: [phone] [phone] (30 min) Complex 11/03/2017 Patient Education: Patient [...] spray in the nasal steroid allergy spray. Drdkbqklhq-tasutwjb-zviquinx cymbalta 08/08/2017 Appointment: Nicki Cabral WPtel: [phone] [phone] (30 min) Complex 08/08/2017 Patient Education: [...] this patient. 07/10/2017 Appointment: Carmelina Ott WPtel: [facility] (15 min) Moderate 07/10/2017 Appointment: Nicki Cabral WPtel: [phone] (30 min) Complex 07/10/2017 Patient Education: [...] recommended pt to continue with aleve, get [place] to use on your knee and hip [...] of control. 03/06/2017 Appointment: Carmelina Ott WPtel: [facility] (15 min) Moderate 03/06/2017 Patient Education: Patient Medication Summary Completed 03/06/2017 Patient Education: Obesity Completed 03/06/2017 Visit Plan: Rash-very faint-will cu lture the rash today- recommend emollient such as eucerin cream or cerave-call if rash does not resolve or if any worse. Patient verbalized understanding of plan. 03/04/2017 Appointment: Nicki Cabral WPtel: [facility]8 [phone] [place] (15 min) Moderate 03/04/2017 Patient Education: Patient Medication Summary Completed 03/04/2017 Appointment: Carmelina Ott WPtel: [facility]5 [id number] (15 min) Moderate 02/19/2017 Visit Plan: Medicare [...] care surrogate. 11/04/2016 Appointment: Luz Latham [facility]Ptel[phone] [facility] - Annual Wellness Visit 11/04/2016 Patient Education: Patient Medication Summary Completed 11/04/2016 Visit Plan: Hypertension - well con christina - continue with current medications, continue with [...] control. 10/23/2016 App[facility]ment[phone] (15 min) Moderate 10/23/2016 Patient Education: [...] control. 10/03/2016 Appointment: Luz Latham WPtel: [phone] [facility] (30 min) Complex 10/03/2016 Patient Education: Patient Medication Summary Completed 10/03/2016 Patient Education: Obesity Completed 10/03/2016 Visit Plan: Insect bite-right cheek -kenalog injection today in the office-use benadryl cream as needed for itching. Call for s/s of infection-increase redness, warmth, induration. Patient verbalized understanding of plan. 09/03/2016 Appointment: Nicki Cabral WPtel: [facility]5 [phone] (15 min) Moderate 09/03/2016 Patient Education: Patient [...] control. 08/21/2016 Appointment: Carmelina Ott WPtel: [phone] [facility] (15 min) Moderate 08/21/2016 Patient Education: Patient [...] of control. 04/24/2016 Appointment: Carm[facility] Ott [facility]Ptel[facility] ([facility] min) Moderate 04/24/2016 Patient Education: [...] peripheral neuropathy. 01/18/2016 Appointment: Carmelina Ott WPtel: [facility]3 [facility] (15 min) Moderate 01/18/2016 Patient Education: [...] Lipids today. 12/21/2015 Appointment: Carmelina Ott WPtel: [facility]9 [facility] (15 min) Moderate 12/21/2015 Patient Education: [...] 1 month 08/17/2015 Appointment[phone] ([facility] min) Moderate 08/17/2015 Patient Education: [...] x 2weeks and to talk to her boiler tube blower about potential permanent decrease in her medication if the two week trial of a lower dose has helped to improve her symptoms of muscle aches and joint pain. 07/07/2014 Appointment: Carmelina Ott WPtel: [address] [place], [place] [id number] Follow up 07/07/2014 Patient Education: Patient Medication [...] control. 03/24/2014 Appointment: Carmelina Ott WPtel: [phone] [facility] Follow up 03/24/2014 Patient Education: Patient Medication [...] less controlled. 01/20/2014 Appointment: [phone] [place] Follow up 01/20/2014 Patient Education: Patient Medication Summary Completed 01/20/2014 Patient Education: Hypertension Completed 01/20/2014 Appointment: Carmelina Ott WPtel: [facility]3 [facility] [place] Follow up 01/17/2014 Visit Plan: Diabetes Mellitus [...] control. 12/20/2013 Appointment: Carmelina Ott WPtel: [phone] [facility] Other 12/20/2013 Patient Education: Patient Medication [...] WEEK 10/25/2013 Appointment: Carmelina Ott WPtel: [phone] [facility] Diabetic education 10/25/2013 Patient Education: Patient Medication [...] of control. 10/19/2013 Appointment: Carmelina Ott WPtel: [facility]5 [facility] Follow up 10/19/2013 Patient Education: Patient Medication Summary Completed 10/19/2013 Patient Education: Hypertension Completed 10/19/2013 Appointment: Carmelina Ott WPtel: [facility]5 [facility] Follow up 09/23/2013 Visit Plan: Hypertension [...] of control. 05/25/2013 Appointment: Carmelina Ott WPtel: [facility] Follow up 05/25/2013 Patient Education: Patient Medication Summary Completed 05/25/2013 Patient Education: Hypertension Completed 05/25/2013 Appointment: Carmelina Ott WPtel: [phone] [facility] Follow up 05/19/2013 Visit Plan: Diabetes [...] months. 02/18/2013 Appointment: Carmelina Ott WPtel: [phone] [facility] Follow up 02/18/2013 Patient Education: Patient [...] resolved. 10/01/2012 Appointment: [phone] [facility] 10/01/2012 Patient Education: Patient Medication [...] for yeast 02/11/2012 Appointment: Carmelina Ott WPtel: [address] [place], [place] [id number] pt will comment on meaningful use (from [...] kegel exercises. 01/14/2012 Appointment: Carmelina Ott WPtel: [address] [place], [place] [address] Other 01/14/2012 Patient Education: Patient Medication Summary Completed 01/14/2012 Patient Education: High Blood Pressure: Essential Hypertension Completed 01/14/2012 Referral: Andrew Madera Referral Relationship Referral: Ravi Gaston WPtel: [id number] [place] Referral Relationship Referral: Ella Saldana Referral [...] Gait instabilty-patient going to do PT at [facility] . Rash-very faint-wi ll culture the rash [...] spray in the nasal steroid allergy spray. [id number] cymbalta . Hypertension - wel l controlled [...] hold the pravastatin x 1 month . Medicare Exam - to day we [...] DOPA paperwork for health care surrogate. . Diabetes Mellitus - controlled - per [...] DIET. Ureg incontinenece - recommended kegel exercises. vitamin b12 2000mcg daily folate 1mg daily start claritin 10mg daily . Diabetes Mellitus - controlled - per r ent FSBS reports. I have recommended for the [...] surgery has led to peripheral neuropathy. . HTN and Tachycardi a - htn [...] x 2weeks and to talk to her boiler tube blower about potential permanent decrease in her medication [...] x 2weeks and to talk to her boiler tube blower about potential permanent decrease in her medication [...] recommended pt to continue with aleve, get Marietta Antelope to use on your knee and hip [...] recommended pt to continue with aleve, get Marietta Antelope to use on your knee and hip [...]
--- OUTSIDE RECORDS SUMMARY | 2020-05-26 12:21 | XMS REPORT | CCD ---
Author Author Aleyda Ott ok Organization Carmelina Ott MD, [facility] Address [facility] [place] [address] Phone Care Team Providers Care Solar Sales Rep Name Role Phone PP Unavailable CCM Unavailable Summary Purpose Interface Exchange Insurance Providers Payer name Policy type / Coverage type Covered constitution party ID Effective Begin Date Effective End Date WPS Medicare Part B Medicare Part B [id number] 2013 Unknown [facility] icare Part B [id number] 2013 Unkno wn Family history Brother Diagnosis Age At Onset Heart disease Unknown Sister Diagnosis Age At Onset endometrial cancer Unknown Father Diagnosis Age At Onset Heart disease Unknown Mother Diagnosis Age At Onset Heart disease Unknown Social History Social History Element Codes Description Effective Dates Marital status Unknown W idowed 01/14/[address]: 869480412 Nonsmoker 01/14/2012 Has the patient ever used [...] Fill Instructions Synthroid 50 mcg tablet RxNorm: 640431 TAKE ONE TABLET BY MOUTH DAILY (DISCONTI NUE LEVOTHYROXINE) 12/14/2018 12/08/2019 Active metoprolol succinate ER 50 mg tablet,extended release 24 hr RxNorm: 289300 1 Tablet(s) PO QPM TAKE ONE TABLET BY MOUTH EVERY EVENING 10/20/2018 03/18/2019 Active metoprolol succinate ER 50 mg tablet,extended release 24 hr RxNorm: 617144 1 Tablet(s) PO QPM TAKE ONE TABLET BY MOUTH EVERY EVENING 05/08/2018 10/19/2018 Inactive Cymbalta 30 mg capsu le,delayed release RxNorm: 905685 TAKE ONE CAPSULE BY M OUTH DAILY 11/24/2017 11/18/2018 Inactive Synthroid 50 mcg tablet RxNorm: 947054 TAKE ONE TABLET BY MOUTH DAILY (DISCONTI NUE LEVOTHYROXINE) 11/24/2017 12/13/2018 Inactive Voltaren 1 % topical gel RxNorm: 008562 [facility] 11/03 No Stop Date Active metoprolol succinate ER 50 mg tablet,extended release 24 hr RxNorm: 640098 1 Tablet(s) PO QPM TAKE ONE TABLET BY MOUTH EVERY EVENING 10/06/2017 05/03/2018 Inactive Synthroid 50 mcg tablet RxNorm: 533064 TAKE ONE TABLET BY MOUTH DAILY (DISCONTI NUE LEVOTHYROXINE) 09/04/2017 11/23/2017 Inactive Cymbalta 30 mg capsu le,delayed release RxNorm: 411870 1 Capsule(s) PO daily 07/10/2017 10/07/2017 In active metoprolol succinate ER 50 mg tablet,extended release 24 hr RxNorm: 698331 TAKE ONE TABLET BY MOUTH EVERY EVENING 03/06/2017 10/01/2017 Inactive Kenalog 40 mg/mL marguerite pension for injection RxNorm: 1117156 Milliliter(s) Inj 09/03/2016 09/03/2016 In active tramadol 50 mg tablet RxNorm: 012396 1 Tablet(s) PO Q4-6H as needed 08/21/2016 No Stop Date Active Synthroid 50 mcg tablet RxNorm: 558918 1 Tablet(s) PO daily 08/21/2016 08/15/2017 Inactive DC levothyroxine metoprolol succinate ER 25 mg tablet,extended release 24 hr RxNorm: 951788 1 Tablet(s) PO QAM 07/24/2016 08/20/2016 Inactive metoprolol succinate ER 50 mg tablet,extended release 24 hr RxNorm: 079481 1 Tablet(s) PO QPM 07/24/2016 02/18/2017 Inactive Synthroid 50 mcg tablet RxNorm: 950336 1 Tablet(s) PO daily 06/10/2016 08/20/2016 Inactive DC levothyroxine Synthroid 50 mcg tablet RxNorm: 189143 1 Tablet(s) PO daily 05/16/2016 06/09/2016 Inactive hydrocortisone 2.5 % topical cream RxNorm: 573165 1 Application TOP TID 05/08/2016 08/05/2016 In active hydrocortisone 2.5 % topical cream RxNorm: 799911 1 Application TOP TID 05/08/2016 05/07/2016 In active betamethasone diprop ionate 0.05 % topical cream RxNorm: 603476 1 Application TOP BID as needed 04/24/2016 05/07/2016 Inactive betamethasone diprop ionate 0.05 % topical cream RxNorm: 280517 1 Application TOP BID as needed 04/24/2016 04/23/2016 Inactive loratadine 10 mg tablet RxNorm: 114637 1 Tablet(s) PO daily 01/18/2016 05/16/2016 Inactive loratadine 10 mg dis integrating tablet RxNorm: 846229 1 Tablet(s) PO daily 01/18/2016 01/17/2016 In active Synthroid 50 mcg tablet RxNorm: 554774 1 Tablet(s) PO daily 01/01/2016 04/29/2016 Inactive Synthroid 50 mcg tablet RxNorm: 276004 1 Tablet(s) PO daily 01/01/2016 12/31/2015 Inactive prednisone 20 mg tablet RxNorm: 208971 3 Tablet(s) PO daily 09/11/2015 09/15/2015 Inactive prednisone 20 mg tablet RxNorm: 382853 3 Tablet(s) PO daily 09/11/2015 09/10/2015 Inactive Abreva 10 % topical cream RxNorm: 544152 1 Application TOP 5x daily 06/23/2015 07/12/2015 Inactive Apply to lip lesions 5 times per day for 10 days prednisone 20 mg tablet RxNorm: 986027 2 Tablet(s) PO daily x3 06/12/2015 06/14/2015 Inactive prednisone 20 mg tablet RxNorm: 720292 2 Tablet(s) PO daily x3 06/12/2015 06/11/2015 Inactive Kenalog 40 mg/mL marguerite pension for injection RxNorm: 4800388 1 Milliliter(s) Inj 03/28/2015 03/28/2015 In active hydrocodone 7.5 mg-a cetaminophen 325 mg tablet RxNorm: 461850 1 Tablet(s) PO Q4-6H as needed for back pain 03/28/2015 06/11/2015 Inactive Synthroid 50 mcg tablet RxNorm: 440165 1 Tablet(s) PO daily TAKE ONE TABLET BY MOUTH EVERY DAY 12/12/2014 12/11/2014 Inactive Synthroid 50 mcg tablet RxNorm: 963231 TAKE ONE TABLET BY MOUTH EVERY DAY 12/12/2014 12/20/2015 In active hydrocodone 7.5 mg-a cetaminophen 325 mg tablet RxNorm: 711323 1 Tablet(s) PO Q4-6H as needed for back pain 07/07/2014 09/04/2014 Inactive Synthroid 50 mcg tablet RxNorm: 278531 1 Tablet(s) PO daily TAKE ONE TABLET BY MOUTH EVERY DAY 07/07/2014 12/11/2014 Inactive Synthroid 50 mcg tablet RxNorm: 710392 TAKE ONE TABLET BY MOUTH EVERY DAY 06/06/2014 06/10/2014 In active Synthroid 50 mcg tablet RxNorm: 776966 TAKE ONE TABLET BY MOUTH EVERY DAY 06/06/2014 06/10/2014 In active Singulair 10 mg tablet RxNorm: 434109 Tablet(s) PO TAKE ONE TABLET BY MOUTH EV FCO DAY 03/03/2014 06/22/2015 Inactive hydrocodone 5 mg-kristofer taminophen 500 mg tablet RxNorm: 871992 Tablet(s) PO PRN 01/20/2014 07/06/2014 In active Synthroid 50 mcg tablet RxNorm: 731917 1 Tablet(s) PO daily name brand only 12/14/2013 12/13/2013 In active name brand only Synthroid 50 mcg tablet RxNorm: 373173 1 Tablet(s) PO daily name brand only 12/14/2013 06/05/2014 In active name brand only Januvia 50 mg tablet RxNorm: 698322 1 Tablet(s) PO daily 03/24/2013 05/25/2013 Inactive Singulair 10 mg tablet RxNorm: 035088 Tablet(s) PO TAKE ONE TABLET BY MOUTH EV FCO DAY 03/02/2013 03/02/2014 Inactive levothyroxine 50 mcg tablet RxNorm: 810486 1 Tablet(s) PO daily 02/03/2013 02/02/2013 Inactive levothyroxine 50 mcg tablet RxNorm: 711550 1 Tablet(s) PO daily 02/03/2013 10/18/2013 Inactive levothyroxine 25 mcg tablet RxNorm: 931493 1 1/2 Tablet(s) PO daily 01/29/2013 02/02/2013 Inactive one and one half tab daily (1 1/2)may zhang ve 90 day supply if cheaper levothyroxine 25 mcg tablet RxNorm: 799895 Tablet(s) PO TAKE 1 A ND 1/2 TABLETS ONCE DAILY 11/02/2012 05/25/2013 Inactive glipizide 5 mg tablet RxNorm: 419449 Tablet(s) PO TAKE ONE-HALF TABLET BY ADÁN TH EVERY DAY 10/19/2012 05/25/2013 Inactive metformin 500 mg tablet RxNorm: 856634 Tablet(s) PO TAKE ONE-HALF TABLET BY ADÁN TH TWICE A DAY 10/19/2012 05/25/2013 Inactive Voltaren 1 % Topical Gel RxNorm: 339315 4 Gram(s) TOP QID 10/01/2012 12/25/2015 Inactive levothyroxine 25 mcg tablet RxNorm: 220876 1 1/2 Tablet(s) PO daily 08/03/2012 01/28/2013 Inactive one and one half tab daily (11/18)may zhang ve 90 day supply if cheaper metformin 500 mg tablet RxNorm: 754024 1/2 Tablet(s) PO BID 03/03/2012 08/29/2012 Inactive glipizide 5 mg Tab RxNorm: 336822 1/2 Tablet(s) PO daily 03/03/2012 03/02/2012 Inactive metformin 500 mg Tab RxNorm: 903199 1/2 Tablet(s) PO BID 03/03/2012 03/02/2012 Inactive glipizide 5 mg tablet RxNorm: 027015 1/2 Tablet(s) PO daily 03/03/2012 08/29/2012 Inactive Singulair 10 mg tablet RxNorm: 750150 1 Tablet(s) PO daily 03/02/2012 03/01/2013 Inactive Bactrim DS 800 mg-16 0 mg Tab RxNorm: 347052 1 Tablet(s) PO BID 02/11/2012 02/20/2012 Inactive fluconazole 150 mg Tab RxNorm: 183041 1 Tablet(s) PO daily 02/11/2012 05/25/2013 Inactive levothyroxine 25 mcg tablet RxNorm: 632167 1 1/2 Tablet(s) PO daily 01/15/2012 07/12/2012 Inactive one and one half tab daily (11/18)may zhang ve 90 day supply if cheaper levothyroxine 100 mc g Tab RxNorm: 748424 1 Tablet(s) PO daily 09/04/2011 01/14/2012 Inactive Singulair 10 mg Tab RxNorm: 798580 1 Tablet(s) PO daily 09/04/2011 03/01/2012 Inactive zinc lozenges RxNorm: 1 PO QHS No Start Date Active Vitamin B-6 100 mg t ablet RxNorm: 221108 2 Tablet(s) PO QPM No Start Date Active Zinc Chelate 15 mg t ablet RxNorm: 1 Tablet(s) PO daily with 1 ,000 mg calcium No Start Date Active Vitamin D3 2,000 uni t tablet RxNorm: 591270 1 Tablet(s) PO QPM No Start Date Active Artificial Tears RxNorm: 166620 ophthalmic No Start Date Active pravastatin 20 mg ta blet RxNorm: 331356 1 Tablet(s) PO QHS No Start Date Active Nitrostat 0.4 mg Sub lingual Tab RxNorm: 018296 Tablet(s) SL PRN No Start Date Active Vitamin C 100 mg tablet RxNorm: 745936 1 Tablet(s) PO QHS No Start Date Active Fish Oil 360 mg-1,20 0 mg capsule RxNorm: 496724 1 Capsule(s) PO daily No Start Date Active latanoprost 0.005 % eye drops RxNorm: 539149 1 Drop(s) OPH each ey e QHS No Start Date Active Vitamin B-12 1,000 m cg tablet RxNorm: 389251 1 Tablet(s) PO daily No Start Date Active Standish Saline nasal RxNorm: 9863 nasal No Start Date Active Flintstones Complete oral RxNorm: oral No Start D ate Active aspirin 81 mg Tab, D elayed Release RxNorm: 650065 1 Tablet(s) PO daily No Start Date Active vitamin D3-[place] ne 7 Oral RxNorm: Oral No Start D ate 12/26/2015 Inactive vitamin B6-vitamin E -magnesium Tab RxNorm: 1 Tablet(s) PO daily No Start Date 12/26/2015 Inactive Zinc Chelate 15 mg t ablet RxNorm: 1 Tablet(s) PO daily with 4 00 mg Magnesium No Start Date 10/23/2016 Inactive pravastatin 20 mg ta blet RxNorm: 646939 1 Tablet(s) PO daily No Start Date 01/19/2014 Inactive Zocor 20 mg Tab RxNorm: 994396 1 Tablet(s) PO QHS No Start Date 05/25/2013 Inactive Plavix 75 mg tablet RxNorm: 676251 1 Tablet(s) PO daily No Start Date 03/28/2015 Inactive metoprolol succinate ER 100 mg tablet,extended release 24 hr RxNorm: 779876 1 Tablet(s) PO daily No Start Date 07/23/2016 Inactive Januvia 100 mg Tab RxNorm: 618997 1 Tablet(s) PO daily No Start Date 05/25/2013 Inactive tramadol 50 mg tablet RxNorm: 012791 1 Tablet(s) PO as needed No Start Date 08/20/2016 Inactive Flintstones Complete Oral RxNorm: Oral No Start D ate 12/26/2015 Inactive Plavix 75 mg Tab RxNorm: 976278 1 Tablet(s) PO every other day No Start Date 05/25/2013 Inactive Accu-Chek Compact Te st strips RxNorm: 1 test Miscellaneous BID No Start Date 10/22/2016 Inactive accu-chek compact plus Accu-Chek Softclix L ancets RxNorm: 1 test Miscellaneous daily No Start Date 10/22/2016 Inactive Fish Oil 1,000 mg Cap RxNorm: 1 Capsule(s) PO daily No Start Date 12/26/2015 Inactive Januvia 50 mg tablet RxNorm: 939660 Tablet(s) PO No Start Date 03/23/2013 Inactive hydrocodone 5 mg-kristofer taminophen 500 mg tablet RxNorm: 708726 Tablet(s) PO PRN No Start Date 01/19/2014 Inactive Synthroid 50 mcg tablet RxNorm: 518962 1 Tablet(s) PO daily name brand only No Start Date 12/13/2013 Inactive name brand only levothyroxine 25 mcg Tab RxNorm: 056715 1 Tablet(s) PO daily 1 tab q morning on empty stomach No Start Date 01/13/2012 Inactive metoprolol succinate ER 50 mg 24 hr Tab RxNorm: 394520 1 Tablet(s) PO daily No Start Date 12/25/2015 Inactive pravastatin 40 mg ta blet RxNorm: 712606 Tablet(s) PO No Start Date 12/25/2015 Inactive latanoprost Opht RxNorm: Ophthalmic No Start Date 12/26/2015 Inactive cranberry Oral RxNorm: Oral No Start Date 06/22/2015 Inactive Medication Administered Medication Codes Instruc tions Start Date Status Kenalog 40 mg/mL suspension for injection RxNorm: 7248926 Milliliter 09/03/2016 No longer Active Kenalog 40 mg/mL suspension for injection RxNorm: 3206248 1Milliliter 03/28/2015 N o longer Active Immunizations Vaccine Codes Date Status PPD Unknown 06/23/2015 completed Influenza CVX: 141 10/19 completed Assessments Condition Codes Effectiv e Dates Essential (primary) hypertension ICD -10: I10 ICD-9: [...] recurrent, 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 89 ICD-9: 477.8 08/08/2017 Myalgia ICD-10: M79.1 ICD-9: 729.1 07/10/2017 [...] Observation Code Item Item Code Result Date Comp Metabolic Wjq871 NA 138 mEq/L 02/24/2018 Comp Metabolic Lfw587 K 4.3 mEq/L 02/24/2018 Comp Metabolic Cvb433 CL 103 mEq/L 02/24/2018 Comp Metabolic Imi455 CO2 27.0 mEq/L 02/24/2018 Comp Metabolic Bhk403 AN ION GAP 12 02/24/2018 Comp Metabolic Fjb570 GL UCOSE 96 mg/dL 02/24/2018 Comp Metabolic Rdl447 Cr eat 0.7 mg/dL 02/24/2018 Comp Metabolic Xuc759 eG FR 86 ml/min/1.73m2 02/24 Comp Metabolic Byb593 BUN 17 mg/dL 02/24/2018 Comp Metabolic Cns544 B/ C Ratio 23.9 Ratio 02/24/2018 Comp Metabolic Uhv852 CA LCIUM 9.2 mg/dL 02/24/2018 Comp Metabolic Irm447 AL K PHOS 67 U/L 02/24/2018 Comp Metabolic Bro535 T(SGOT) 25 U/L 02/24/2018 Comp Metabolic Auk602 AL T(SGPT) 25 U/L 02/24/2018 Comp Metabolic Ocg122 BI LI T 0.3 mg/dL 02/24/2018 Comp Metabolic Ixj329 AL BUMIN 3.9 g/dL 02/24/2018 Comp Metabolic Mud864 TP RO 6.5 g/dL 02/24/2018 Comp Metabolic Xan612 GL OB 2.6 g/dL 02/24/2018 Comp Metabolic Pkv363 A/ G Ratio 1.5 Ratio 02/24/2018 Comp Metabolic Atj840 Os mo 277 mOsmo 02/24/2018 Free T4 Wrn464 FREE T4 0.71 ng/dL 02/24/2018 Tsh Ord6 TSH (3rd IS) 2.53 uIU/mL 02/24/2018 B12 Ain789 B12 360.00 pg/ml 02/24/2018 Cbc With Differential [...] 30.4 pg 02/24/2018 Cbc With Differential Ord2 [place]% 11.3 % 02/24/2018 Cbc With Differential Ord2 MCHC 33.2 pg 02/24/2018 Cbc With Differential Ord2 Eos% 2.7 % 02/24/2018 Cbc With Differential Ord2 Baso% 0.3 % 02/24/2018 Cbc With Differential Ord2 PLT 131 K/ul 02/24/2018 Cbc With Differential Ord2 Neut ABS# 3.81 K/ul 02/24/2018 Cbc With Differential Ord2 RDW 13.5 % 02/24/2018 Cbc With Differential Ord2 Lymph ABS# 2.18 K/ul 02/24/2018 Cbc With Differential Ord2 [place] ABS# 0.8 K/ul 02/24/2018 Cbc With Differential Ord2 Eos ABS# 0.2 K/ul 02/24/2018 Cbc With Differential Ord2 Baso ABS# 0.0 K/ul 02/24/2018 %Hba1C Xxd826 % HbA1c 40777-7 6.5 % 02/24/2018 %Hba1C Fhq489 Gluc Ave 140 mg/dL 02/24/2018 Tsh Ord6 hTSH II 3.98 uIU/mL 11/03/2017 Comp Metabolic Fis532 NA 139 mEq/L 11/03/2017 Comp Metabolic Gln699 K 4.1 mEq/L 11/03/2017 Comp Metabolic Bgh522 CL 102 mEq/L 11/03/2017 Comp Metabolic Iow678 CO2 28.0 mEq/L 11/03/2017 Comp Metabolic Keq757 AN ION GAP 13 11/03/2017 Comp Metabolic Nkc649 GL UCOSE 96 mg/dL 11/03/2017 Comp Metabolic Pwr330 Cr eat 0.8 mg/dL 11/03/2017 Comp Metabolic Piy537 eG FR 80 ml/min/1.73m2 11/03 Comp Metabolic Ehx481 BUN 16 mg/dL 11/03/2017 Comp Metabolic Nzk983 B/ C Ratio 21.3 Ratio 11/03/2017 Comp Metabolic Fmt812 CA LCIUM 9.5 mg/dL 11/03/2017 Comp Metabolic Amz731 AL K PHOS 73 U/L 11/03/2017 Comp Metabolic Qyq111 T(SGOT) 26 U/L 11/03/2017 Comp Metabolic Ppl108 AL T(SGPT) 22 U/L 11/03/2017 Comp Metabolic Mwk174 BI LI T 0.4 mg/dL 11/03/2017 Comp Metabolic Dwh917 AL BUMIN 4.1 g/dL 11/03/2017 Comp Metabolic Ixg032 TP RO 6.3 g/dL 11/03/2017 Comp Metabolic Acy857 GL OB 2.2 g/dL 11/03/2017 Comp Metabolic Oqk620 A/ G Ratio 1.9 Ratio 11/03/2017 Comp Metabolic Uua752 Os mo 279 mOsmo 11/03/2017 Cbc With Differential Ord2 WBC 6.55 K/ul 11/03/2017 Cbc With Differential Ord2 RBC 4.09 M/ul 11/03/2017 Cbc With Differential Ord2 HGB 12.2 g/dl 11/03/2017 Cbc With Differential Ord2 HCT 37.5 % 11/03/2017 Cbc With Differential Ord2 Neut% 54.0 % 11/03/2017 Cbc With Differential Ord2 Lymph% 33.3 % 11/03/2017 Cbc With Differential Ord2 MCV 91.7 fl 11/03/2017 Cbc With Differential Ord2 MCH 29.8 pg 11/03/2017 Cbc With Differential Ord2 [place]% 10.4 % 11/03/2017 Cbc With Differential Ord2 Eos% 2.0 % 11/03/2017 Cbc With Differential Ord2 MCHC 32.5 pg 11/03/2017 Cbc With Differential Ord2 PLT 228 K/ul 11/03/2017 Cbc With Differential Ord2 Baso% 0.3 % 11/03/2017 Cbc With Differential Ord2 Neut ABS# 3.54 K/ul 11/03/2017 Cbc With Differential Ord2 RDW 13.9 % 11/03/2017 Cbc With Differential Ord2 Lymph ABS# 2.18 K/ul 11/03/2017 Cbc With Differential Ord2 [place] ABS# 0.7 K/ul 11/03/2017 Cbc With Differential Ord2 Eos ABS# 0.1 K/ul 11/03/2017 Cbc With Differential Ord2 Baso ABS# 0.0 K/ul 11/03/2017 Free T4 Pod483 FREE T4 0.75 ng/dL 11/03/2017 %Hba1C Ows690 % HbA1c 73539-7 6.4 % 11/03/2017 %Hba1C Wpz005 Gluc Ave 137 mg/dL 11/03/2017 Tsh Ord6 hTSH II 1.77 uIU/mL 03/04/2017 Lipid Ord30 CHOL 125 mg/dL 03/04/2017 Lipid Ord30 HDL 38.0 mg/dl 03/04/2017 Lipid Ord30 TRIG 144 mg/dL 03/04/2017 Lipid Ord30 LDL 58 mg/dL 03/04/2017 Lipid Ord30 C/HDL 3.3 Ratio 03/04/2017 Microalbumin Ggd735 Micr oAlb <0.7 mg/dL 03/04/2017 Comp Metabolic Nln985 NA 139 mEq/L 03/04/2017 Comp Metabolic Xbu320 K 4.4 mEq/L 03/04/2017 Comp Metabolic Rri934 CL 104 mEq/L 03/04/2017 Comp Metabolic Bxw312 CO2 27.0 mEq/L 03/04/2017 Comp Metabolic Ped384 AN ION GAP 12 03/04/2017 Comp Metabolic Ada711 GL UCOSE 95 mg/dL 03/04/2017 Comp Metabolic Qht157 Cr eat 0.8 mg/dL 03/04/2017 Comp Metabolic Klk294 eG FR 79 ml/min/1.73m2 03/04 Comp Metabolic Gko802 BUN 13 mg/dL 03/04/2017 Comp Metabolic Tcf944 B/ C Ratio 17.1 Ratio 03/04/2017 Comp Metabolic Xzr726 CA LCIUM 9.2 mg/dL 03/04/2017 Comp Metabolic Rop329 AL K PHOS 62 U/L 03/04/2017 Comp Metabolic Igr794 T(SGOT) 22 U/L 03/04/2017 Comp Metabolic Jmy423 AL T(SGPT) 22 U/L 03/04/2017 Comp Metabolic Gps592 BI LI T 0.5 mg/dL 03/04/2017 Comp Metabolic Mer528 AL BUMIN 3.8 g/dL 03/04/2017 Comp Metabolic Lru603 TP RO 6.2 g/dL 03/04/2017 Comp Metabolic Mer186 GL OB 2.4 g/dL 03/04/2017 Comp Metabolic Wjn661 A/ G Ratio 1.6 Ratio 03/04/2017 Comp Metabolic Ojj236 Os mo 277 mOsmo 03/04/2017 %Hba1C Dkm676 % HbA1c 37900-7 6.2 % 03/04/2017 %Hba1C Gsn357 Gluc Ave 131 mg/dL 03/04/2017 Cbc With Differential Ord2 WBC 6.02 K/ul 03/04/2017 Cbc With Differential Ord2 RBC 4.15 M/ul 03/04/2017 Cbc With Differential Ord2 HGB 12.7 g/dl 03/04/2017 Cbc With Differential Ord2 HCT 38.5 % 03/04/2017 Cbc With Differential Ord2 Neut% 57.0 % 03/04/2017 Cbc With Differential Ord2 Lymph% 30.6 % 03/04/2017 Cbc With Differential Ord2 MCV 92.8 fl 03/04/2017 Cbc With Differential Ord2 MCH 30.6 pg 03/04/2017 Cbc With Differential Ord2 [place]% 9.6 % 03/04/2017 Cbc With Differential Ord2 Eos% 2.3 % 03/04/2017 Cbc With Differential Ord2 MCHC 33.0 pg 03/04/2017 Cbc With Differential Ord2 Baso% 0.5 % 03/04/2017 Cbc With Differential Ord2 PLT 262 K/ul 03/04/2017 Cbc With Differential Ord2 RDW 13.3 % 03/04/2017 Cbc With Differential Ord2 Neut ABS# 3.43 K/ul 03/04/2017 Cbc With Differential Ord2 Lymph ABS# 1.84 K/ul 03/04/2017 Cbc With Differential Ord2 [place] ABS# 0.6 K/ul 03/04/2017 Cbc With Differential Ord2 Eos ABS# 0.1 K/ul 03/04/2017 Cbc With Differential Ord2 Baso ABS# 0.0 K/ul 03/04/2017 B12 Wql165 B12 440.00 pg/ml 10/04/2016 Free T4 Xrf512 FREE T4 0.77 ng/dL 10/04/2016 Cbc With Differential Ord2 WBC 9.00 K/ul 10/04/2016 Cbc With Differential Ord2 RBC 4.18 M/ul 10/04/2016 Cbc With Differential Ord2 HGB 12.8 g/dl 10/04/2016 Cbc With Differential Ord2 HCT 38.5 % 10/04/2016 Cbc With Differential Ord2 Neut% 59.4 % 10/04/2016 Cbc With Differential Ord2 Lymph% 30.8 % 10/04/2016 Cbc With Differential Ord2 MCV 92.1 fl 10/04/2016 Cbc With Differential Ord2 [place]% 8.0 % 10/04/2016 Cbc With Differential Ord2 MCH 30.6 pg 10/04/2016 Cbc With Differential Ord2 Eos% 1.6 % 10/04/2016 Cbc With Differential Ord2 MCHC 33.2 pg 10/04/2016 Cbc With Differential Ord2 PLT 303 K/ul 10/04/2016 Cbc With Differential Ord2 Baso% 0.2 % 10/04/2016 Cbc With Differential Ord2 RDW 14.1 % 10/04/2016 Cbc With Differential Ord2 Neut ABS# 5.35 K/ul 10/04/2016 Cbc With Differential Ord2 Lymph ABS# 2.77 K/ul 10/04/2016 Cbc With Differential Ord2 [place] ABS# 0.7 K/ul 10/04/2016 Cbc With Differential Ord2 Eos ABS# 0.1 K/ul 10/04/2016 Cbc With Differential Ord2 Baso ABS# 0.0 K/ul 10/04/2016 Comp Metabolic Dpg396 NA 136 mEq/L 10/04/2016 Comp Metabolic Gld188 K 4.0 mEq/L 10/04/2016 Comp Metabolic Rws424 CL 100 mEq/L 10/04/2016 Comp Metabolic Rqh665 CO2 29.0 mEq/L 10/04/2016 Comp Metabolic Bed017 AN ION GAP 11 10/04/2016 Comp Metabolic Gav301 GL UCOSE 92 mg/dL 10/04/2016 Comp Metabolic Lio876 Cr eat 0.7 mg/dL 10/04/2016 Comp Metabolic Tbl042 eG FR 85 ml/min/1.73m2 10/04 Comp Metabolic Jgk599 BUN 17 mg/dL 10/04/2016 Comp Metabolic Jqs108 B/ C Ratio 23.6 Ratio 10/04/2016 Comp Metabolic Rhl843 CA LCIUM 9.7 mg/dL 10/04/2016 Comp Metabolic Ypu042 AL K PHOS 86 U/L 10/04/2016 Comp Metabolic Xcw993 T(SGOT) 23 U/L 10/04/2016 Comp Metabolic Wha682 AL T(SGPT) 27 U/L 10/04/2016 Comp Metabolic Kfu507 BI LI T 0.3 mg/dL 10/04/2016 Comp Metabolic Bhu305 AL BUMIN 4.3 g/dL 10/04/2016 Comp Metabolic Xpk794 TP RO 6.9 g/dL 10/04/2016 Comp Metabolic Zwr213 GL OB 2.6 g/dL 10/04/2016 Comp Metabolic Etd209 A/ G Ratio 1.6 Ratio 10/04/2016 Comp Metabolic Bwi692 Os mo 273 mOsmo 10/04/2016 Tsh Ord6 hTSH II 3.75 uIU/mL 10/04/2016 Free T4 Muk876 FREE T4 0.68 ng/dL 05/17/2016 Tsh Ord6 hTSH II 3.31 uIU/mL 05/17/2016 Alyssa Reflex Profile [id number] ALYSSA (MARCELLA) SCREEN NONE DETECTED 016 Tsh Ord6 hTSH II 6.78 uIU/mL 12/22/2015 C-Reactive Protein Qnt Crqnt CRP 0.2 mg/dl 12/22/2015 Sed Rate Ord21 ESR 15 mm/hr 12/22/2015 Free T4 Kne953 FREE T4 0.70 ng/dL 12/22/2015 Comp Metabolic Qga051 NA 138 mEq/L 12/22/2015 Comp Metabolic Lej661 K 4.3 mEq/L 12/22/2015 Comp Metabolic Rap972 CL 102 mEq/L 12/22/2015 Comp Metabolic Etg385 CO2 28.0 mEq/L 12/22/2015 Comp Metabolic Drc655 AN ION GAP 12 12/22/2015 Comp Metabolic Mpu423 GL UCOSE 114 mg/dL 12/22/2015 Comp Metabolic Lpe222 Cr eat 0.8 mg/dL 12/22/2015 Comp Metabolic Xxr557 eG FR 80 ml/min/1.73m2 12/22 Comp Metabolic Riv426 BUN 18 mg/dL 12/22/2015 Comp Metabolic Dwz443 B/ C Ratio 23.7 Ratio 12/22/2015 Comp Metabolic Qxf613 CA LCIUM 9.4 mg/dL 12/22/2015 Comp Metabolic Pjd032 AL K PHOS 75 U/L 12/22/2015 Comp Metabolic Wnl444 T(SGOT) 19 U/L 12/22/2015 Comp Metabolic Ooz217 AL T(SGPT) 20 U/L 12/22/2015 Comp Metabolic Hzr899 BI LI T 0.5 mg/dL 12/22/2015 Comp Metabolic Udq399 AL BUMIN 3.9 g/dL 12/22/2015 Comp Metabolic Uad360 TP RO 6.2 g/dL 12/22/2015 Comp Metabolic Rid968 GL OB 2.3 g/dL 12/22/2015 Comp Metabolic Bjl733 A/ G Ratio 1.7 Ratio 12/22/2015 Comp Metabolic Qkc917 Os mo 278 mOsmo 12/22/2015 Ra Factor Jga436 RA FACT OR <10 IU/ml 12/22/2015 Lipid Ord30 CHOL 150 mg/dL 12/22/2015 Lipid Ord30 HDL 49.0 mg/dl 12/22/2015 Lipid Ord30 TRIG 108 mg/dL 12/22/2015 Lipid Ord30 LDL 79 mg/dL 12/22/2015 Lipid Ord30 C/HDL 3.1 Ratio 12/22/2015 %Hba1C Eic454 % HbA1c 63263-1 6.2 % 12/22/2015 %Hba1C Lcl024 Gluc Ave 131 mg/dL 12/22/2015 Cbc With [...] 92.3 fl 12/22/2015 Cbc With Differential Ord2 [place]% 7.5 % 12/22/2015 Cbc With Differential Ord2 MCH 30.0 pg 12/22/2015 Cbc With Differential Ord2 MCHC 32.5 pg 12/22/2015 Cbc With Differential Ord2 Eos% 2.2 % 12/22/2015 Cbc With Differential Ord2 PLT 260 K/ul 12/22/2015 Cbc With Differential Ord2 Baso% 0.3 % 12/22/2015 Cbc With Differential Ord2 RDW 14.1 % 12/22/2015 Cbc With Differential Ord2 Neut ABS# 3.18 K/ul 12/22/2015 Cbc With Differential Ord2 Lymph ABS# 2.06 K/ul 12/22/2015 Cbc With Differential Ord2 [place] ABS# 0.4 K/ul 12/22/2015 Cbc With Differential [...] Ord2 RDW 14.2 % 06/21/2015 Comp Metabolic Ykz263 NA 135 mEq/L 06/21/2015 Comp Metabolic Zhf977 K 4.2 mEq/L 06/21/2015 Comp Metabolic Dks164 CL 99 mEq/L 06/21/2015 Comp Metabolic Rtp453 CO2 27.0 mEq/L 06/21/2015 Comp Metabolic Tok099 AN ION GAP 13 06/21/2015 Comp Metabolic Lwd585 GL UCOSE 94 mg/dL 06/21/2015 Comp Metabolic Jfo115 Cr eat 0.8 mg/dL 06/21/2015 Comp Metabolic Ttd693 eG FR 81 ml/min/1.73m2 06/21 Comp Metabolic Dth917 BUN 16 mg/dL 06/21/2015 Comp Metabolic Sow435 B/ C Ratio 21.3 Ratio 06/21/2015 Comp Metabolic Jpa926 CA LCIUM 9.4 mg/dL 06/21/2015 Comp Metabolic Vvq487 AL K PHOS 164 U/L 06/21/2015 Comp Metabolic Ipw455 T(SGOT) 22 U/L 06/21/2015 Comp Metabolic Zrg493 AL T(SGPT) 23 U/L 06/21/2015 Comp Metabolic Xqd802 BI LI T 0.4 mg/dL 06/21/2015 Comp Metabolic Yfc304 AL BUMIN 4.0 g/dL 06/21/2015 Comp Metabolic Zwg432 TP RO 6.6 g/dL 06/21/2015 Comp Metabolic Kgz431 GL OB 2.6 g/dL 06/21/2015 Comp Metabolic Xoo859 A/ G Ratio 1.5 Ratio 06/21/2015 Comp Metabolic Hig780 Os mo 271 mOsmo 06/21/2015 URINALYSIS NONAUTO W/O SCOPE 28667 Specific [place] 1.010 DateTime(Free Text in Apr) URINALYSIS NONAUTO W/O SCOPE 97754 PH 6.0 DateTime(Free [place] t in ) URINALYSIS NONAUTO W/O SCOPE 12984 GLUCOSE NEG DateTime(Free [place] t in ) URINALYSIS NONAUTO W/O SCOPE 69449 Protein NEG DateTime(Free [place] t in Apr) URINALYSIS NONAUTO W/O SCOPE 46844 Blood TRACE DateTime(Free T ext in ) URINALYSIS NONAUTO W/O SCOPE 38446 Bilirubin NEG DateTime(Free [place] t in Apr) URINALYSIS NONAUTO W/O SCOPE 42716 Ketones NEG DateTime(Free Te xt in Febima) URINALYSIS NONAUTO W/O SCOPE 90362 Urobilinogen NEG DateTime(Free Text in Aprima) URINALYSIS NONAUTO W/O SCOPE 23201 Nitrite NEG DateTime(Free [place] t in Aprima) URINALYSIS NONAUTO W/O SCOPE 40866 Leukocytes NEG DateTime(Free Text in Aprima) UA 57267 Specific [place] 1.020 DateTime(Free Text in Aprima ) UA 15761 PH 5.0 DateTime(Free Text in Apr ) UA 95748 Protein neg DateTime(Free Text in Aprima ) UA 94837 Blood neg DateTime(Free Text in Aprima ) UA 21875 Bilirubin neg DateTime(Free Text in Aprima ) UA 21852 Ketones neg DateTime(Free Text in Aprima ) UA 74890 Urobilinogen 0.2 DateTime(Free Text in Aprima ) UA 97195 Nitrite neg DateTime(Free Text in ) UA 54666 Leukocytes neg DateTime(Free Text in ) Review [...] tenderness 12/20/2013 None Full Exam - General 1995 Abdomen [...] masses 10/25/2013 None Full Exam - General 1995 Respiratory auscultation Overall: breath sounds clear bilaterally 10/25/2013 None Full Exam - General 1995 Respiratory respiratory effort/rhythm Overall: no retractions 10/25/2013 None Full Exam - General 1995 Respiratory respiratory effort/rhythm Overall: normal rate 10/25/2013 [...] rate 10/19/2013 None Full Exam - General 1995 Cardiovascular [...] unsteadiness 10/19/2013 None Full Exam - General 1994 [...] sounds 05/25/2013 None Full Exam - General 1995 Musculoskeletal spine, ribs and pelvis Overall: good posture 05/25/2013 None Full Exam - General 1995 Musculoskeletal spine, ribs and pelvis Palpation: a normal exam 05/25/2013 previous left inner thigh tenderness resolved. Full Exam - General 1994 Musculoskeletal head and neck Overall: head atraumatic 05/25/2013 None Full Exam - General 1994 Constitutional general appearance Overall: well developed 02/18/2013 None Full Exam - General 1995 Constitutional general appearance Overall: in no acute distress 02/18/2013 None Full Exam - General 1995 Constitutional general appearance Overall: well nourished 02/18/2013 [...] distress 10/01/2012 None Full Exam - General 1995 Constitutional general appearance Overall: well nourished 10/01/2012 None Full Exam - General 1994 Eyes pupils and irises Overall: pupils equal, round, reactive to light and accomodation 10/01/2012 None Full Exam - General 1995 [...] 09/03/2016 URINALYSIS NONAUTO W /O SCOPE CPT-4: 55412 06/23/2015 TRIAMCINOLONE ACET I [place] NOS CPT-4: J3301 03/28/2015 FOOT EXAM PERFORMED SNOMED CT: 97951560 CPT-4: 2028F 12/20/2013 PRESCRIP TRANSMIT A ERX SY CPT-4: G8553 10/25/2013 PRESCRIP TRANSMIT A ERX SY CPT-4: G8553 10/01/2012 URINALYSIS NONAUTO W /O SCOPE CPT-4: 02779 02/11/2012 PRESCRIP TRANSMIT A ERX SY CPT-4: G8553 02/11/2012 Vital Signs Date Vital 08/27/2018 Blood Pressure 1: 150/72 Code: 8480-6 BMI: 33.8 Code: 01333-3 Heart Rate 1: 77 bpm Height: 5'3" SpO2: 98% Weight: 191 lbs 02/24/2018 Blood Pressure 1: 140/72 Code: 8480-6 BMI: 33.5 Code: 59582-2 Heart Rate 1: 78 bpm Height: 5'3" SpO2: 98% Weight: 189 lbs 11/03/2017 Blood Pressure 1: 140/72 Code: 8480-6 BMI: 33.2 Code: 40267-9 Heart Rate 1: 71 bpm Height: 5'3" SpO2: 98% Weight: 187 lbs 8 oz 08/08/2017 Blood Pressure 1: 140/66 Code: 8480-6 BMI: 33.1 Code: 24025-8 Heart Rate 1: 73 bpm Height: 5'3" SpO2: 97% Weight: 187 lbs 07/10/2017 Blood Pressure 1: 144/74 Code: 8480-6 BMI: 33.5 Code: 04234-7 Heart Rate 1: 78 bpm Height: 5'3" SpO2: 94% Weight: 189 lbs 03/06/2017 Blood Pressure 1: 140/86 Code: 8480-6 BMI: 32.9 Code: 93287-6 Heart Rate 1: 68 bpm Height: 5'3" SpO2: 98% Weight: 186 lbs 03/04/2017 Blood Pressure 1: 136/82 Code: 8480-6 Heart Rate 1: 61 bpm Height: 5'3" SpO2: 97% Temperature: 36.6 (C ) / 97.8 (F) Weight: 11/04/2016 Blood Pressure 1: 146/76 Code: 8480-6 BMI: 34.7 Code: 07672-6 Heart Rate 1: 70 bpm Height: 5'3" SpO2: 97% Waist Measure (cm): 107 cm Weight: 196 lbs 10/23/2016 Blood Pressure 1: 148/78 Code: 8480-6 BMI: 34.7 Code: 64553-0 Heart Rate 1: 68 bpm Height: 5'3" SpO2: 97% Weight: 196 lbs 10/03/2016 Blood Pressure 1: 142/78 Code: 8480-6 BMI: 34.7 Code: 56430-1 Heart Rate 1: 72 bpm Height: 5'3" SpO2: 98% Weight: 196 lbs 09/03/2016 Blood Pressure 1: 128/88 Code: 8480-6 Heart Rate 1: 86 bpm SpO2: 96% 08/21/2016 Blood Pressure 1: 128/62 Code: 8480-6 BMI: 35.1 Code: 93433-2 Heart Rate 1: 80 bpm Height: 5'3" SpO2: 98% Weight: 198 lbs 07/24/2016 Blood Pressure 1: 150/86 Code: 8480-6 BMI: 34.4 Code: 49690-9 Heart Rate 1: 72 bpm Height: 5'3" SpO2: 97% Weight: 194 lbs 04/24/2016 Blood Pressure 1: 138/76 Code: 8480-6 BMI: 34.2 Code: 62892-3 Heart Rate 1: 71 bpm Height: 5'3" SpO2: 98% Weight: 193 lbs 01/18/2016 Blood Pressure 1: 140/72 Code: 8480-6 BMI: 33.4 Code: 00774-8 Heart Rate 1: 69 bpm Height: 5'3" SpO2: 98% Weight: 188 lbs 8 oz 12/21/2015 Blood Pressure 1: 158/78 Code: 8480-6 BMI: 33.3 Code: 78580-5 Heart Rate 1: 66 bpm Height: 5'3" SpO2: 98% Weight: 188 lbs 08/17/2015 Blood Pressure 1: 132/76 Code: 8480-6 BMI: 30.5 Code: 73742-4 Heart Rate 1: 66 bpm Height: 5'3" Respiratory Rate: 18 bpm SpO2: 97% Weight: 172 lbs 06/23/2015 Blood Pressure 1: 160/80 Code: 8480-6 Blood Pressure 2: 170/86 Code: 8480-6 BMI: 28.3 Code: 72184-9 Heart Rate 1: 96 bpm Height: 5'3" SpO2: 98% Temperature: 37.3 (C ) / 99.1 (F) Weight: 160 lbs 06/21/2015 Blood Pressure 1: 132/78 Code: 8480-6 Heart Rate 1: 106 bpm SpO2: 98% Temperature: 37.3 (C ) / 99.2 (F) Weight: 166 lbs 03/28/2015 Blood Pressure 1: 160/84 Code: 8480-6 Blood Pressure 2: 138/78 Code: 8480-6 BMI: 32.1 Code: 21958-8 Heart Rate 1: 86 bpm Height: 5'3" SpO2: 97% Weight: 181 lbs 07/07/2014 Blood Pressure 1: 138/82 Code: 8480-6 BMI: 32.6 Code: 69308-2 Heart Rate 1: 82 bpm Height: 5'3" SpO2: 96% Weight: 184 lbs 03/24/2014 Blood Pressure 1: 138/64 Code: 8480-6 BMI: 32.4 Code: 41669-2 Heart Rate 1: 72 bpm Height: 5'3" Weight: 183 lbs 01/20/2014 Blood Pressure 1: 149/69 Code: 8480-6 Blood Pressure 2: 170/82 Code: 8480-6 Heart Rate 1: 81 bpm Weight: 183 lbs 12/20/2013 Blood Pressure 1: 150/78 Code: 8480-6 BMI: 32.6 Code: 36512-7 Heart Rate 1: 76 bpm Height: 5'3" Weight: 184 lbs 10/25/2013 Blood Pressure 1: 167/80 Code: 8480-6 BMI: 33.3 Code: 66228-6 Heart Rate 1: 60 bpm Height: 5'3" Weight: 188 lbs 10/19/2013 Blood Pressure 1: 136/78 Code: 8480-6 BMI: 33.1 Code: 53374-4 Height: 5'3" Weight: 187 lbs 05/25/2013 Blood Pressure 1: 134/82 Code: 8480-6 BMI: 33.5 Code: 74477-0 Heart Rate 1: 80 bpm Height: 5'3" Weight: 189 lbs 02/18/2013 Blood Pressure 1: 158/88 Code: 8480-6 Blood Pressure 2: 158/90 Code: 8480-6 BMI: 33.7 Code: 15791-5 Heart Rate 1: 80 bpm Height: 5'3" Weight: 190 lbs 10/01/2012 Blood Pressure 1: 138/62 Code: 8480-6 Heart Rate 1: 76 bpm Weight: 184 lbs 05/18/2012 Blood Pressure 1: 150/82 Code: 8480-6 Blood Pressure 2: 136/84 Code: 8480-6 BMI: 32.1 Code: 63844-4 Heart Rate 1: 71 bpm Height: 5'3" SpO2: 98% Weight: 181 lbs 02/11/2012 Blood Pressure 1: 126/56 Code: 8480-6 Heart Rate 1: 68 bpm Respiratory Rate: 16 bpm Weight: 184 lbs 01/14/2012 Blood Pressure 1: 158/80 Code: 8480-6 BMI: 33.9 Code: 95895-7 Heart Rate 1: 60 bpm Height: 5'3" [...] 1 months ago 06/23/2015 since back surgery 7- edema Pertinent Findings back pain 06/23/2015 None [...] Pertinent Findings back pain 06/21/2015 surgery on 7- shortness of breath Pertinent Findings weight loss [...] 1 months ago 06/21/2015 since back surgery 7- edema Pertinent Findings back pain 06/21/2015 None [...] readings at home 02/11/2012 None hypothyroid Quality nurse intern miranda 02/11/2012 had a doseage change want [...] Encounters Encounter Performer Loca tion Codes Date ([id number]) 30343 EST. [facility] Diagnosis: Type 2 diabetes mellitus with diabetic polyneuropathy[ICD10: E11.42] Diagnosis: Pain in left leg[ICD10: M79.605] Diagnosis: Pain in right leg[ICD10: M79.604] Carmelina Ott MD, [facility] CPT-4: 73012 08/27/2018 ([id number]) Miscellaneou s no charge Diagnosis: Other fatigue[ICD10: R53.83] Carmelina Ott MD, [facility] CPT-4: 24566 06/17/2018 ([id number]) 43718 EST. P ATIENT, LEVEL IV Diagnosis: Essential (primary) hypertension[ICD10: I10] Diagnosis: Hypothyroidism, unspecified[ICD10: E03.9] Diagnosis: Type 2 diabetes mellitus without complications[ICD10: E11.9] Diagnosis: Chronic pain syndrome[ICD10: G89.4] Diagnosis: Vitamin B12 deficiency anemia, unspecified[ICD10: D51.9] Diagnosis: Unsteadiness on feet[ICD10: R26.81] Nicki Ott MD, [facility] CPT-4: 57501 02/24/2018 ([id number]) 96832 EST. P ATIENT, LEVEL IV Diagnosis: Type 2 diabetes mellitus without complications[ICD10: E11.9] Diagnosis: Hypothyroidism, unspecified[ICD10: E03.9] Diagnosis: Essential (primary) hypertension[ICD10: I10] Diagnosis: Pain in left shoulder[ICD10: M25.512] Nicki Ott MD, [facility] CPT-4: 05556 11/03/2017 ([id number]) 97191 EST. P ATIENT, LEVEL III Diagnosis: Essential (primary) hypertension[ICD10: I10] Diagnosis: Major depressive disorder, recurrent, mild[ICD10: F33.0] Diagnosis: Other allergic rhinitis[ICD10: J30.89] [facility] CPT-4: 86960 08/08/2017 ([id number]) 79020 EST. P ATIENT, LEVEL IV Diagnosis: Hypothyroidism, unspecified[ICD10: E03.9] Diagnosis: Major depressive disorder, recurrent, mild[ICD10: F33.0] Diagnosis: Myalgia[ICD10: M79.1] Diagnosis: Chronic pain syndrome[ICD10: G89.4] Diagnosis: Essential (primary) hypertension[ICD10: I10] Nicki Ott MD, [facility] CPT-4: 46429 07/10/2017 ([id number]) 63516 EST. P ATIENT, LEVEL IV Diagnosis: Essential (primary) hypertension[ICD10: I10] Diagnosis: Atrophy of thyroid (acquired)[ICD10: E03.4] Diagnosis: Sacroiliitis, not elsewhere classified[ICD10: M46.1] Diagnosis: Mixed hyperlipidemia[ICD10: E78.2] Carmelina Ott MD, [facility] CPT- 4: 75664 03/06/2017 ([id number]) 77277 EST. P ATIENT, LEVEL II Diagnosis: Rash and other nonspecific skin eruption[ICD10: R21] Nicki Ott MD, [facility] CPT-4: 25058 03/04/2017 ([id number]) 97151 EST. P ATIENT, LEVEL IV Diagnosis: Type 2 diabetes mellitus without complications[ICD10: E11.9] Diagnosis: Essential (primary) hypertension[ICD10: I10] Diagnosis: Atrophy of thyroid (acquired)[ICD10: E03.4] Carmelina Ott MD, [facility] CPT-4: 04227 10/23/2016 44270 EST. PATIENT, LEVEL III Diagnosis: Other specified hypothyroidism[ICD10: E03.8] Diagnosis: Other specified anemias[ICD10: D64.89] Diagnosis: Pain in thoracic spine[ICD10: M54.6] Luz Ott MD, [facility] CPT- 4: 14856 10/03/2016 45197 EST. PATIENT, LEVEL II Diagnosis: Insect bite (nonvenomous) of other part of head, initial encounter[ICD10: S00.86XA] Nicki Ott MD, [facility] CPT-4: 19038 09/03/2016 ([id number]) 33205 EST. P ATIENT, LEVEL IV Diagnosis: Type 2 diabetes mellitus without complications[ICD10: E11.9] Diagnosis: Hypothyroidism, unspecified[ICD10: E03.9] Diagnosis: Essential (primary) hypertension[ICD10: I10] Carmelina Ott MD, [facility] CPT-4: 35214 08/21/2016 ([id number]) 70785 EST. P ATIENT, LEVEL IV Diagnosis: Essential (primary) hypertension[ICD10: I10] Diagnosis: Supraventricular tachycardia[ICD10: I47.1] Diagnosis: Other fatigue[ICD10: R53.83] Carmelina Ott MD, [facility] CPT-4: 93896 07/24/2016 ([id number]) 27179 EST. P ATIENT, LEVEL IV Diagnosis: Type 2 diabetes mellitus without complications[ICD10: E11.9] Diagnosis: Essential (primary) hypertension[ICD10: I10] Diagnosis: Hypothyroidism, unspecified[ICD10: E03.9] Carmelina Ott MD, [facility] CPT-4: 19869 04/24/2016 ([id number]) 11297 EST. P ATIENT, LEVEL IV Diagnosis: Type 2 diabetes mellitus without complications[ICD10: E11.9] Diagnosis: Type 2 diabetes mellitus with diabetic polyneuropathy[ICD10: E11.42] Carmelina Ott MD, [facility] CPT-4: 66079 01/18/2016 ([id number]) 50323 EST. P ATIENT, LEVEL IV Diagnosis: Urticaria, unspecified[ICD10: L50.9] Diagnosis: Dermatographic urticaria[ICD10: L50.3] Diagnosis: Hypothyroidism, unspecified[ICD10: E03.9] Diagnosis: Type 2 diabetes mellitus without complications[ICD10: E11.9] Diagnosis: Mixed hyperlipidemia[ICD10: E78.2] Diagnosis: Myalgia[ICD10: M79.1] Diagnosis: Essential (primary) hypertension[ICD10: I10] Carmelina Ott MD, [facility] CPT-4: 11398 12/21/2015 ([id number]) 71236 EST. P ATIENT, LEVEL IV Diagnosis: Hypothyroidism, unspecified[ICD10: E03.9] Diagnosis: Essential (primary) hypertension[ICD10: I10] Diagnosis: Urticaria, unspecified[ICD10: L50.9] Carmelina Ott MD, [facility] CPT-4: 92154 08/17/2015 ([id number]) Miscellaneou s no charge Diagnosis: ESSENTIAL HYPERTENSION[ICD9: 401.9] Diagnosis: Elevated temperature[ICD9: 780.60] Diagnosis: EDEMA[ICD9: 782.3] Katja Ott MD, [facility] CPT-4: 49230 06/23/2015 ([id number]) 28270 EST. P ATIENT, LEVEL IV Diagnosis: ESSENTIAL HYPERTENSION[ICD9: 401.9] Diagnosis: TACHYCARDIA[ICD9: 785.0] Diagnosis: Dyspnea[ICD9: 786.09] Katja Ott MD, [facility] CPT-4: 01963 06/21/2015 ([id number]) 39665 EST. P ATIENT, LEVEL III Diagnosis: Sacroiliitis[ICD9: 720.2] Diagnosis: LUMBAGO[ICD9: 724.2] Nicki Ott MD, [facility] CPT-4: 13732 03/28/2015 ([id number]) 06327 EST. P ATIENT, LEVEL IV Diagnosis: HYPOTHYROIDISM[ICD9: 244.9] Diagnosis: ESSENTIAL HYPERTENSION[ICD9: 401.9] Diagnosis: DIABETES TYPE II[ICD9: 250.00] Diagnosis: HYPERLIPIDEMIA[ICD9: 272.4] Diagnosis: Muscle ache[ICD9: 729.1] Carmelina Ott MD, [facility] CPT-4: 50504 07/07/2014 ([id number]) 92573 EST. P ATIENT, LEVEL IV Diagnosis: DIABETES TYPE II[SNOMED: 751800443] Diagnosis: ESSENTIAL HYPERTENSION[SNOMED: 35469525] Diagnosis: HYPOTHYROIDISM[ICD9: 244.9] Carmelina Ott MD, [facility] CPT-4: 34347 03/24/2014 ([id number]) 72702 EST. P ATIENT, LEVEL III Diagnosis: DIABETES TYPE II[SNOMED: 967747772] Diagnosis: ESSENTIAL HYPERTENSION[SNOMED: 64528883] Carmelina Ott MD, [facility] CPT-4: 21901 01/20/2014 ([id number]) 08608 EST. P ATIENT, LEVEL IV Diagnosis: DIABETES TYPE II[SNOMED: 215416571] Diagnosis: ESSENTIAL HYPERTENSION[SNOMED: 87972479] Diagnosis: Peripheral neuropathy, idiopathic[ICD9: 356.9] Carmelina Ott MD, C CPT-4: 65017 12/20/2013 ([id number]) 24751 EST. P ATIENT, LEVEL IV Diagnosis: DIABETES TYPE II[SNOMED: 128692681] Diagnosis: ESSENTIAL HYPERTENSION[SNOMED: 51884980] Diagnosis: Dietary counseling and surveillance[ICD9: V65.3] Carmelina Ott MD, [facility] CPT-4: 87839 10/25/2013 ([id number]) 74453 EST. P ATIENT, LEVEL IV Diagnosis: DIABETES TYPE II[SNOMED: 528866724] Diagnosis: ESSENTIAL HYPERTENSION[SNOMED: 37656238] Diagnosis: HYPOTHYROIDISM[ICD9: 244.9] Carmelina Ott MD, [facility] CPT-4: 92208 10/19/2013 ([id number]) 90521 EST. P ATIENT, LEVEL IV Diagnosis: ESSENTIAL HYPERTENSION[SNOMED: 13065783] Diagnosis: DIABETES TYPE II[SNOMED: 076417878] Diagnosis: HYPOTHYROIDISM[ICD9: 244.9] Carmelina Ott MD, [facility] CPT-4: 00367 05/25/2013 ([id number]) 90915 EST. P ATIENT, LEVEL IV Diagnosis: DIABETES TYPE II[SNOMED: 550387190] Diagnosis: ESSENTIAL HYPERTENSION[SNOMED: 63072498] Diagnosis: HYPOTHYROIDISM[ICD9: 244.9] Carmelina Ott MD, [facility] CPT-4: 92912 02/18/2013 ([id number]) 53416 EST. P ATIENT, LEVEL III Diagnosis: ESSENTIAL HYPERTENSION[SNOMED: 89432317] Carmelina Ott MD, [facility] CPT-4: 89930 10/01/2012 ([id number]) 82508 EST. P ATIENT, LEVEL IV Diagnosis: DIABETES TYPE II[SNOMED: 399628199] Diagnosis: ESSENTIAL HYPERTENSION[SNOMED: 07802518] Carmelina Ott MD, [facility] CPT-4: 77945 05/18/2012 ([id number]) 05763 EST. P ATIENT, LEVEL IV Diagnosis: DIABETES TYPE II[SNOMED: 845774739] Diagnosis: HYPOTHYROIDISM[ICD9: 244.9] Diagnosis: UTI (lower urinary tract infection)[ICD9: 599.0] Diagnosis: Vaginal yeast infection[ICD9: 112.1] Diagnosis: Rectal lump[ICD9: 787.99] Diagnosis: Abdominal bloating[ICD9: 787.3] [facility] CPT-4: 89677 02/11/2012 [id number] 59539 EST. P ATIENT, LEVEL IV Diagnosis: ESSENTIAL HYPERTENSION[SNOMED: 18923697] Diagnosis: DIABETES TYPE II[SNOMED: 008673293] Diagnosis: HYPERLIPIDEMIA[ICD9: 272.4] Diagnosis: HYPOTHYROIDISM[ICD9: 244.9] [facility] CPT-4: 32727 01/14/2012 Plan of Care Planned Activity Notes C odes Status Date Patient Education: Patient Medication Summary Completed 12/21/2018 Care Plan: Comp Metabolic Pending 12/21/2018 Care Plan: Tsh Pending 12/21/2018 Care Plan: Cbc With Differential Pending 12/21/2018 Care Plan: Lipid Pending 12/21/2018 Care Plan: %Hba1C LOLACY C : 77799-2 Pending 12/21/2018 Care Plan: Free T4 Pending 12/21/2018 Visit Plan: Diabetes Mellitus - con [...] with Cymbalta. 08/27/2018 Appointment: Carmelina Ott WPtel: [address] [place], [place] [address] (15 min) Moderate 08/27/2018 Patient Education: Patient [...] Gait instabilty-patient going to do PT at [facility] 02/24/2018 Appointment: Nicki Cabral WPtel: [phone] [phone] (30 min) Complex 02/24/2018 Patient Education: [...] improved. 11/03/2017 [facility]ment[phone] (30 min) Complex 11/03/2017 Patient Education: Patient [...] spray in the nasal steroid allergy spray. Cusmmdnzmm-pcrkvfgm-wsobllwq cymbalta 08/08/2017 Appointment: Nicki Cabral WPtel: [phone] (30 min) Complex 08/08/2017 Patient Education: [...] this patient. 07/10/2017 Appointment: Carmelina Ott WPtel: [phone] [facility] (15 min) Moderate 07/10/2017 Appointment: Nicki Cabral WPtel: [phone] [phone] (30 min) Complex 07/10/2017 Patient Education: [...] recommended pt to continue with aleve, get Tavernier Freedom to use on your knee and hip [...] of control. 03/06/2017 Appointment: Carmelina Ott WPtel: [facility] (15 min) Moderate 03/06/2017 Patient Education: Patient Medication Summary Completed 03/06/2017 Patient Education: Obesity Completed 03/06/2017 Visit Plan: Rash-very faint-will cu lture the rash today- recommend emollient such as eucerin cream or cerave-call if rash does not resolve or if any worse. Patient verbalized understanding of plan. 03/04/2017 Appointment: Nicki Cabral WPtel: [phone] (15 min) Moderate 03/04/2017 Patient Education: Patient Medication Summary Completed 03/04/2017 Appointment: Carmelina Ott WPtel: [facility] (15 min) Moderate 02/19/2017 Visit Plan: Medicare [...] care surrogate. 11/04/2016 Appointment: Luz Latham [facility]el[phone] [facility] [facility] - Annual Wellness Visit 11/04/2016 [...] of control. 10/23/2016 App[facility]ment[phone] [facility] (15 min) Moderate 10/23/2016 Patient Education: Patient [...] of control. 10/03/2016 Appointment: Luz Latham [facility]Ptel[phone] [facility] (30 min) Complex 10/03/2016 Patient Education: Patient Medication Summary Completed 10/03/2016 Patient Education: Obesity Completed 10/03/2016 Visit Plan: Insect bite-right cheek -kenalog injection today in the office-use benadryl cream as needed for itching. Call for s/s of infection-increase redness, warmth, induration. Patient verbalized understanding of plan. 09/03/2016 Appointment: [facility] Cabral [facility]Ptel[phone] [phone] (15 min) Moderate 09/03/2016 Patient Education: [...] control. 08/21/2016 Appointment: Carmelina Ott WPtel: [phone] [facility] (15 min) Moderate 08/21/2016 Patient Education: Patient [...] of control. 04/24/2016 Appointment: [phone] [facility] (15 min) Moderate 04/24/2016 Patient Education: Patient [...] neuropathy. 01/18/2016 Appointment: Carmelina Ott WPtel: [phone] [facility] (15 min) Moderate 01/18/2016 Patient Education: Patient [...] today. 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 07/07/2014 Appointment: Carmelina Ott WPtel: [phone] [facility] Follow up 07/07/2014 Patient Education: Patient Medication [...] control. 03/24/2014 Appointment: Carmelina Ott WPtel: [phone] [facility] Follow up 03/24/2014 Patient Education: Patient Medication [...] controlled. 01/20/2014 Appointment: Carmelina Ott WPtel: [phone] [facility] [place] Follow up 01/20/2014 Patient Education: Patient Medication Summary Completed 01/20/2014 Patient Education: Hypertension Completed 01/20/2014 Appointment: Carmelina Ott WPtel: [phone] [facility] Follow up 01/17/2014 Visit Plan: Diabetes Mellitus [...] control. 12/20/2013 Appointment: Carmelina Ott WPtel: [phone] [facility] Other 12/20/2013 Patient Education: Patient Medication Summary [...] WEEK 10/25/2013 Appointment: Carmelina Ott WPtel: [phone] [facility] Diabetic education 10/25/2013 Patient Education: Patient Medication [...] of control. 10/19/2013 Appointment: Carmelina Ott WPtel: [facility] Follow up 10/19/2013 Patient Education: Patient Medication Summary Completed 10/19/2013 Patient Education: Hypertension Completed 10/19/2013 Appointment: Carmelina Ott WPtel: [facility] Follow up 09/23/2013 Visit Plan: Hypertension - [...] of control. 05/25/2013 Appointment: Carmelina Ott WPtel: [facility] Follow up 05/25/2013 Patient Education: Patient Medication Summary Completed 05/25/2013 Patient Education: Hypertension Completed 05/25/2013 Appointment: Carmelina Ott WPtel: [facility] Follow up 05/19/2013 Visit Plan: Diabetes Mellitus [...] months. 02/18/2013 Appointment: [facility]el[phone] [facility] Follow [facility] 02/18/2013 Patient Education: Patient Medication [...] and resolved. 10/01/2012 Appointment: Carmelina Ott WPtel: [facility] Other 10/01/2012 Patient Education: Patient Medication Summary [...] yeast 02/11/2012 Appointment: [facility]Ptel[phone] [facility] pt will comment on meaningful use (from [...] kegel exercises. 01/14/2012 Appointment: Carmelina Ott WPtel: [address] [place] [address] Other 01/14/2012 Patient Education: Patient Medication Summary Completed 01/14/2012 Patient Education: High Blood Pressure: Essential Hypertension Completed 01/14/2012 Referral: Andrew Madera Referral Relationship Referral: Ravi Gaston WPtel: [address] [place], [place] [phone] [place] Referral Relationship Referral: Ella Saldana Referral [...] ick to lip Chest X-Ray at [facility] today We will write referral order for [...] ick to lip Chest X-Ray at [facility] today We will write referral order for [...] spray in the nasal steroid allergy spray. Extyewbnus-gwmbbnbk-tlrtscri cymbalta CYMBALTA 30MG DAILY . Hypertension - [...] Gait instabilty-patient going to do PT at [facility] . 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
--- OUTSIDE RECORDS SUMMARY | 2020-05-26 12:23 | XMS REPORT | CCD ---
Author Author Aleyda Ott dc Organization Carmelina Ott MD, [facility] Address [facility] [place] [address] Phone Care Team Providers Care Activities Officer Name Role Phone PP Unavailable CCM Unavailable Summary Purpose Interface Exchange Insurance Providers Payer name Policy type / Coverage type Covered republican ID Effective Begin Date Effective End Date WPS Medicare Part B Medicare Part B [id number] 2013 Unknown [facility] icare Part B [id number] 2013 Unkno wn Family history Brother Diagnosis Age At Onset Heart disease Unknown Sister Diagnosis Age At Onset endometrial cancer Unknown Father Diagnosis Age At Onset Heart disease Unknown Mother Diagnosis Age At Onset Heart disease Unknown Social History Social History Element Codes Description Effective Dates Marital status Unknown W idowed 01/14/[address]: [id number] Nonsmoker 01/14/2012 Has the patient ever used illegal drugs? Unknown Has never used illegal drugs 012 Allergies, Adverse Reactions, Alerts Substance Reaction Codes Entered Date Inactivated Date Status * NO KNOWN FOOD CAROLA RGIES Unknown 01/14/2012 No Inactive Date Active * NO KNOWN DRUG CAROLA RGIES Unknown 01/14/2012 No Inactive Date Active Past Medical History Illness Codes Condition Status Onset Date Resolved Date Pain in left leg ICD-9: 729.5 ICD-10: M79.605 Active 08/27/2018 Unknown Pain in right leg ICD-9: 729.5 ICD-10: M79.604 Active 08/27/2018 Unknown 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 ICD-9: 250.60 ICD-10: E11.42 Active 01/17/2016 Unknown Other fatigue ICD-9: 780.79 ICD-10: R53.83 Active 07/23/2016 Unknown Chronic pain syndrome ICD-9: 338.4 ICD-10: G89.4 Active 07/10/2017 Unknown Essential (primary) hypertension ICD-9: 401.1 ICD-10: I10 Active 08/20/2016 Unknown Hypothyroidism, unsp ecified ICD-9: 244.9 ICD-10: E03.9 Active 07/07/2014 Unknown Type 2 diabetes moisés [...] ICD-9: 272.4 ICD-10: E78.2 Active 07/07/2014 Unknown Sacroiliitis, not el sewhere classified ICD-9: 720.2 ICD-10: M46.1 Active 03/06/2017 Unknown Rash and other nonsp ecific skin eruption ICD-9: 782.1 ICD-10: R21 Active 03/04/2017 Unknown Encounter for genera l adult medical examination with abnormal findings ICD-9: V70.0 ICD-10: Z00.01 Active 11/03/2016 Unknown Other specified anemias ICD-9: 285.8 ICD-10: D64.89 Active 10/02/2016 Unknown Other specified hypo thyroidism ICD-9: 244.8 [...] Condition Codes Effectiv e Dates Condition Status Pain in left leg ICD-9: 729.5 ICD-10: M79.605 08/27/2018 Active Pain in right leg ICD-9: 729.5 ICD-10: M79.604 08/27/2018 Active 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 ICD-9: 250.60 ICD-10: E11.42 01/17/2016 Active Other fatigue ICD-9: 780.79 ICD-10: R53.83 07/23/2016 Active Chronic pain syndrome ICD-9: 338.4 ICD-10: G89.4 07/10/2017 Active Essential (primary) hypertension ICD-9: 401.1 ICD-10: I10 08/20/2016 Active Hypothyroidism, unsp ecified ICD-9: 244.9 ICD-10: E03.9 07/07/2014 Active Type 2 diabetes moisés itus [...] hyperlipidemia ICD-9: 272.4 ICD-10: E78.2 07/07/2014 Active Sacroiliitis, not el sewhere classified ICD-9: 720.2 ICD-10: M46.1 03/06/2017 Active Rash and other nonsp ecific skin eruption ICD-9: 782.1 ICD-10: R21 03/04/2017 Active Encounter for genera l adult medical examination with abnormal findings ICD-9: V70.0 ICD-10: Z00.01 11/03/2016 Active Other specified anemias ICD-9: 285.8 ICD-10: D64.89 10/02/2016 Active Other specified hypo thyroidism ICD-9: 244.8 [...] Fill Instructions Synthroid 50 mcg tablet RxNorm: 247384 TAKE ONE TABLET BY MOUTH DAILY (DISCONTI NUE LEVOTHYROXINE) 12/14/2018 12/08/2019 Active metoprolol succinate ER 50 mg tablet,extended release 24 hr RxNorm: 348138 1 Tablet(s) PO QPM TAKE ONE TABLET BY MOUTH EVERY EVENING 10/20/2018 03/18/2019 Active metoprolol succinate ER 50 mg tablet,extended release 24 hr RxNorm: 647048 1 Tablet(s) PO QPM TAKE ONE TABLET BY MOUTH EVERY EVENING 05/08/2018 10/19/2018 Inactive Cymbalta 30 mg capsu le,delayed release RxNorm: 264359 TAKE ONE CAPSULE BY M OUTH DAILY 11/24/2017 11/18/2018 Inactive Synthroid 50 mcg tablet RxNorm: 957940 TAKE ONE TABLET BY MOUTH DAILY (DISCONTI NUE LEVOTHYROXINE) 11/24/2017 12/13/2018 Inactive Voltaren 1 % topical gel RxNorm: 913094 [facility] 11/03 No Stop Date Active metoprolol succinate ER 50 mg tablet,extended release 24 hr RxNorm: 732363 1 Tablet(s) PO QPM TAKE ONE TABLET BY MOUTH EVERY EVENING 10/06/2017 05/03/2018 Inactive Synthroid 50 mcg tablet RxNorm: 288770 TAKE ONE TABLET BY MOUTH DAILY (DISCONTI NUE LEVOTHYROXINE) 09/04/2017 11/23/2017 Inactive Cymbalta 30 mg capsu le,delayed release RxNorm: 154214 1 Capsule(s) PO daily 07/10/2017 10/07/2017 In active metoprolol succinate ER 50 mg tablet,extended release 24 hr RxNorm: 508755 TAKE ONE TABLET BY MOUTH EVERY EVENING 03/06/2017 10/01/2017 Inactive Kenalog 40 mg/mL marguerite pension for injection RxNorm: 5055431 Milliliter(s) Inj 09/03/2016 09/03/2016 In active tramadol 50 mg tablet RxNorm: 240243 1 Tablet(s) PO Q4-6H as needed 08/21/2016 No Stop Date Active Synthroid 50 mcg tablet RxNorm: 972504 1 Tablet(s) PO daily 08/21/2016 08/15/2017 Inactive DC levothyroxine metoprolol succinate ER 25 mg tablet,extended release 24 hr RxNorm: 658326 1 Tablet(s) PO QAM 07/24/2016 08/20/2016 Inactive metoprolol succinate ER 50 mg tablet,extended release 24 hr RxNorm: 522667 1 Tablet(s) PO QPM 07/24/2016 02/18/2017 Inactive Synthroid 50 mcg tablet RxNorm: 119077 1 Tablet(s) PO daily 06/10/2016 08/20/2016 Inactive DC levothyroxine Synthroid 50 mcg tablet RxNorm: 498008 1 Tablet(s) PO daily 05/16/2016 06/09/2016 Inactive hydrocortisone 2.5 % topical cream RxNorm: 875435 1 Application TOP TID 05/08/2016 08/05/2016 In active hydrocortisone 2.5 % topical cream RxNorm: 247045 1 Application TOP TID 05/08/2016 05/07/2016 In active betamethasone diprop ionate 0.05 % topical cream RxNorm: 886715 1 Application TOP BID as needed 04/24/2016 05/07/2016 Inactive betamethasone diprop ionate 0.05 % topical cream RxNorm: 593594 1 Application TOP BID as needed 04/24/2016 04/23/2016 Inactive loratadine 10 mg tablet RxNorm: 790952 1 Tablet(s) PO daily 01/18/2016 05/16/2016 Inactive loratadine 10 mg dis integrating tablet RxNorm: 564905 1 Tablet(s) PO daily 01/18/2016 01/17/2016 In active Synthroid 50 mcg tablet RxNorm: 639030 1 Tablet(s) PO daily 01/01/2016 04/29/2016 Inactive Synthroid 50 mcg tablet RxNorm: 989225 1 Tablet(s) PO daily 01/01/2016 12/31/2015 Inactive prednisone 20 mg tablet RxNorm: 978671 3 Tablet(s) PO daily 09/11/2015 09/15/2015 Inactive prednisone 20 mg tablet RxNorm: 822244 3 Tablet(s) PO daily 09/11/2015 09/10/2015 Inactive Abreva 10 % topical cream RxNorm: 587030 1 Application TOP 5x daily 06/23/2015 07/12/2015 Inactive Apply to lip lesions 5 times per day for 10 days prednisone 20 mg tablet RxNorm: 854310 2 Tablet(s) PO daily x3 06/12/2015 06/14/2015 Inactive prednisone 20 mg tablet RxNorm: 565918 2 Tablet(s) PO daily x3 06/12/2015 06/11/2015 Inactive Kenalog 40 mg/mL marguerite pension for injection RxNorm: 6125581 1 Milliliter(s) Inj 03/28/2015 03/28/2015 In active hydrocodone 7.5 mg-a cetaminophen 325 mg tablet RxNorm: 554300 1 Tablet(s) PO Q4-6H as needed for back pain 03/28/2015 06/11/2015 Inactive Synthroid 50 mcg tablet RxNorm: 053624 1 Tablet(s) PO daily TAKE ONE TABLET BY MOUTH EVERY DAY 12/12/2014 12/11/2014 Inactive Synthroid 50 mcg tablet RxNorm: 001835 TAKE ONE TABLET BY MOUTH EVERY DAY 12/12/2014 12/20/2015 In active hydrocodone 7.5 mg-a cetaminophen 325 mg tablet RxNorm: 498964 1 Tablet(s) PO Q4-6H as needed for back pain 07/07/2014 09/04/2014 Inactive Synthroid 50 mcg tablet RxNorm: 636402 1 Tablet(s) PO daily TAKE ONE TABLET BY MOUTH EVERY DAY 07/07/2014 12/11/2014 Inactive Synthroid 50 mcg tablet RxNorm: 962581 TAKE ONE TABLET BY MOUTH EVERY DAY 06/06/2014 06/10/2014 In active Synthroid 50 mcg tablet RxNorm: 513268 TAKE ONE TABLET BY MOUTH EVERY DAY 06/06/2014 06/10/2014 In active Singulair 10 mg tablet RxNorm: 342397 Tablet(s) PO TAKE ONE TABLET BY MOUTH EV FCO DAY 03/03/2014 06/22/2015 Inactive hydrocodone 5 mg-kristofer taminophen 500 mg tablet RxNorm: 024314 Tablet(s) PO PRN 01/20/2014 07/06/2014 In active Synthroid 50 mcg tablet RxNorm: 030668 1 Tablet(s) PO daily name brand only 12/14/2013 12/13/2013 In active name brand only Synthroid 50 mcg tablet RxNorm: 191296 1 Tablet(s) PO daily name brand only 12/14/2013 06/05/2014 In active name brand only Januvia 50 mg tablet RxNorm: 259168 1 Tablet(s) PO daily 03/24/2013 05/25/2013 Inactive Singulair 10 mg tablet RxNorm: 666345 Tablet(s) PO TAKE ONE TABLET BY MOUTH EV FCO DAY 03/02/2013 03/02/2014 Inactive levothyroxine 50 mcg tablet RxNorm: 363722 1 Tablet(s) PO daily 02/03/2013 02/02/2013 Inactive levothyroxine 50 mcg tablet RxNorm: 476776 1 Tablet(s) PO daily 02/03/2013 10/18/2013 Inactive levothyroxine 25 mcg tablet RxNorm: 064646 1 1/2 Tablet(s) PO daily 01/29/2013 02/02/2013 Inactive one and one half tab daily (1 1/2)may zhang ve 90 day supply if cheaper levothyroxine 25 mcg tablet RxNorm: 022163 Tablet(s) PO TAKE 1 A ND 1/2 TABLETS ONCE DAILY 11/02/2012 05/25/2013 Inactive glipizide 5 mg tablet RxNorm: 240186 Tablet(s) PO TAKE ONE-HALF TABLET BY ADÁN TH EVERY DAY 10/19/2012 05/25/2013 Inactive metformin 500 mg tablet RxNorm: 861128 Tablet(s) PO TAKE ONE-HALF TABLET BY ADÁN TH TWICE A DAY 10/19/2012 05/25/2013 Inactive Voltaren 1 % Topical Gel RxNorm: 070148 4 Gram(s) TOP QID 10/01/2012 12/25/2015 Inactive levothyroxine 25 mcg tablet RxNorm: 424385 1 1/2 Tablet(s) PO daily 08/03/2012 01/28/2013 Inactive one and one half tab daily (11/18)may zhang ve 90 day supply if cheaper metformin 500 mg tablet RxNorm: 505906 1/2 Tablet(s) PO BID 03/03/2012 08/29/2012 Inactive glipizide 5 mg Tab RxNorm: 026256 1/2 Tablet(s) PO daily 03/03/2012 03/02/2012 Inactive metformin 500 mg Tab RxNorm: 212273 1/2 Tablet(s) PO BID 03/03/2012 03/02/2012 Inactive glipizide 5 mg tablet RxNorm: 422866 1/2 Tablet(s) PO daily 03/03/2012 08/29/2012 Inactive Singulair 10 mg tablet RxNorm: 960281 1 Tablet(s) PO daily 03/02/2012 03/01/2013 Inactive Bactrim DS 800 mg-16 0 mg Tab RxNorm: 349562 1 Tablet(s) PO BID 02/11/2012 02/20/2012 Inactive fluconazole 150 mg Tab RxNorm: 064665 1 Tablet(s) PO daily 02/11/2012 05/25/2013 Inactive levothyroxine 25 mcg tablet RxNorm: 561816 1 1/2 Tablet(s) PO daily 01/15/2012 07/12/2012 Inactive one and one half tab daily (11/18)may zhang ve 90 day supply if cheaper levothyroxine 100 mc g Tab RxNorm: 631256 1 Tablet(s) PO daily 09/04/2011 01/14/2012 Inactive Singulair 10 mg Tab RxNorm: 406292 1 Tablet(s) PO daily 09/04/2011 03/01/2012 Inactive zinc lozenges RxNorm: 1 PO QHS No Start Date Active Vitamin B-6 100 mg t ablet RxNorm: 704218 2 Tablet(s) PO QPM No Start Date Active Zinc Chelate 15 mg t ablet RxNorm: 1 Tablet(s) PO daily with 1 ,000 mg calcium No Start Date Active Vitamin D3 2,000 uni t tablet RxNorm: 063936 1 Tablet(s) PO QPM No Start Date Active Artificial Tears RxNorm: 296707 ophthalmic No Start Date Active pravastatin 20 mg ta blet RxNorm: 152400 1 Tablet(s) PO QHS No Start Date Active Nitrostat 0.4 mg Sub lingual Tab RxNorm: 518479 Tablet(s) SL PRN No Start Date Active Vitamin C 100 mg tablet RxNorm: 044455 1 Tablet(s) PO QHS No Start Date Active Fish Oil 360 mg-1,20 0 mg capsule RxNorm: 368150 1 Capsule(s) PO daily No Start Date Active latanoprost 0.005 % eye drops RxNorm: 054326 1 Drop(s) OPH each ey e QHS No Start Date Active Vitamin B-12 1,000 m cg tablet RxNorm: 116378 1 Tablet(s) PO daily No Start Date Active Weiser Saline nasal RxNorm: 9863 nasal No Start Date Active Flintstones Complete oral RxNorm: oral No Start D ate Active aspirin 81 mg Tab, D elayed Release RxNorm: 512247 1 Tablet(s) PO daily No Start Date Active vitamin D3-menaquino ne 7 Oral RxNorm: Oral No Start D ate 12/26/2015 Inactive vitamin B6-vitamin E -magnesium Tab RxNorm: 1 Tablet(s) PO daily No Start Date 12/26/2015 Inactive Zinc Chelate 15 mg t ablet RxNorm: 1 Tablet(s) PO daily with 4 00 mg Magnesium No Start Date 10/23/2016 Inactive pravastatin 20 mg ta blet RxNorm: 160594 1 Tablet(s) PO daily No Start Date 01/19/2014 Inactive Zocor 20 mg Tab RxNorm: 388314 1 Tablet(s) PO QHS No Start Date 05/25/2013 Inactive Plavix 75 mg tablet RxNorm: 215493 1 Tablet(s) PO daily No Start Date 03/28/2015 Inactive metoprolol succinate ER 100 mg tablet,extended release 24 hr RxNorm: 077375 1 Tablet(s) PO daily No Start Date 07/23/2016 Inactive Januvia 100 mg Tab RxNorm: 665203 1 Tablet(s) PO daily No Start Date 05/25/2013 Inactive tramadol 50 mg tablet RxNorm: 352630 1 Tablet(s) PO as needed No Start Date 08/20/2016 Inactive Flintstones Complete Oral RxNorm: Oral No Start D ate 12/26/2015 Inactive Plavix 75 mg Tab RxNorm: 528815 1 Tablet(s) PO every other day No Start Date 05/25/2013 Inactive Accu-Chek Compact Te st strips RxNorm: 1 test Miscellaneous BID No Start Date 10/22/2016 Inactive accu-chek compact plus Accu-Chek Softclix L ancets RxNorm: 1 test Miscellaneous daily No Start Date 10/22/2016 Inactive Fish Oil 1,000 mg Cap RxNorm: 1 Capsule(s) PO daily No Start Date 12/26/2015 Inactive Januvia 50 mg tablet RxNorm: 117798 Tablet(s) PO No Start Date 03/23/2013 Inactive hydrocodone 5 mg-kristofer taminophen 500 mg tablet RxNorm: 046945 Tablet(s) PO PRN No Start Date 01/19/2014 Inactive Synthroid 50 mcg tablet RxNorm: 414080 1 Tablet(s) PO daily name brand only No Start Date 12/13/2013 Inactive name brand only levothyroxine 25 mcg Tab RxNorm: 835301 1 Tablet(s) PO daily 1 tab q morning on empty stomach No Start Date 01/13/2012 Inactive metoprolol succinate ER 50 mg 24 hr Tab RxNorm: 585162 1 Tablet(s) PO daily No Start Date 12/25/2015 Inactive pravastatin 40 mg ta blet RxNorm: 326962 Tablet(s) PO No Start Date 12/25/2015 Inactive latanoprost Opht RxNorm: Ophthalmic No Start Date 12/26/2015 Inactive cranberry Oral RxNorm: Oral No Start Date 06/22/2015 Inactive Medication Administered Medication Codes Instruc tions Start Date Status Kenalog 40 mg/mL suspension for injection RxNorm: 1357290 Milliliter 09/03/2016 No longer Active Kenalog 40 mg/mL suspension for injection RxNorm: 6640854 1Milliliter 03/28/2015 N o longer Active Immunizations Vaccine Codes Date Status PPD Unknown 06/23/2015 completed Influenza CVX: 141 10/19 completed Assessments Condition Codes Effectiv e Dates Pain in left leg ICD-10: M79.605 ICD-9: 729.5 08/27/2018 Pain in right leg ICD-10: M79.604 ICD-9: 729.5 08/27/2018 Type 2 diabetes mellitus with diabetic polyneuropathy ICD-10: E11.42 ICD-9: 250.60 08/27/2018 Other fatigue ICD-10: R53.83 ICD-9: 780.79 06/17/2018 Chronic pain syndrome ICD-10: G89.4 ICD-9: 338.4 02/24/2018 Hypothyroidism, unspecified ICD-10: E03.9 ICD-9: 244.9 02/24/2018 Essential (primary) hypertension ICD -10: I10 ICD-9: 401.1 02/24/2018 Vitamin B12 deficiency anemia, unspecified ICD-10: [...] (acquired) ICD-10 : E03.4 ICD-9: 244.8 03/06/2017 Mixed hyperlipidemia ICD-10: E78.2 ICD-9: 272.4 03/06/2017 Sacroiliitis, not elsewhere classified ICD-10: M46.1 ICD-9: 720.2 03/06/2017 Rash and other nonspecific skin eruption ICD-10: R21 ICD-9: 782.1 03/04/2017 Encounter for general adult medical exam ination with abnormal findings ICD-10: Z00.01 ICD-9: V70.0 11/04/2016 Other specified hypothyroidism ICD-1 0: E03.8 ICD-9: 244.8 10/03/2016 Other specified anemias ICD-10: D64. 89 ICD-9: 285.8 10/03/2016 Pain in thoracic spine ICD-10: M54.6 [...] Item Item Code Result Date Comp Metabolic Ypz570 NA 138 mEq/L 02/24/2018 Comp Metabolic Odi250 K 4.3 mEq/L 02/24/2018 Comp Metabolic Kkk311 CL 103 mEq/L 02/24/2018 Comp Metabolic Wgg081 CO2 27.0 mEq/L 02/24/2018 Comp Metabolic Gok646 AN ION GAP 12 02/24/2018 Comp Metabolic Rbb170 GL UCOSE 96 mg/dL 02/24/2018 Comp Metabolic Zxv511 Cr eat 0.7 mg/dL 02/24/2018 Comp Metabolic Rbn410 eG FR 86 ml/min/1.73m2 02/24 Comp Metabolic Iza619 BUN 17 mg/dL 02/24/2018 Comp Metabolic Wqi604 B/ C Ratio 23.9 Ratio 02/24/2018 Comp Metabolic Kih516 CA LCIUM 9.2 mg/dL 02/24/2018 Comp Metabolic Bib976 AL K PHOS 67 U/L 02/24/2018 Comp Metabolic Cvz832 T(SGOT) 25 U/L 02/24/2018 Comp Metabolic Eqb628 AL T(SGPT) 25 U/L 02/24/2018 Comp Metabolic Ttr659 BI LI T 0.3 mg/dL 02/24/2018 Comp Metabolic Wcn321 AL BUMIN 3.9 g/dL 02/24/2018 Comp Metabolic Fcn833 TP RO 6.5 g/dL 02/24/2018 Comp Metabolic Wiy823 GL OB 2.6 g/dL 02/24/2018 Comp Metabolic Qbt194 A/ G Ratio 1.5 Ratio 02/24/2018 Comp Metabolic Wrc692 Os mo 277 mOsmo 02/24/2018 Free T4 Oej837 FREE T4 0.71 ng/dL 02/24/2018 Tsh Ord6 TSH (3rd IS) 2.53 uIU/mL 02/24/2018 B12 Vin131 B12 360.00 pg/ml 02/24/2018 Cbc With Differential [...] 30.4 pg 02/24/2018 Cbc With Differential Ord2 [place]% 11.3 % 02/24/2018 Cbc With Differential Ord2 [...] 2.18 K/ul 02/24/2018 Cbc With Differential Ord2 [place] ABS# 0.8 K/ul 02/24/2018 Cbc With Differential Ord2 Eos ABS# 0.2 K/ul 02/24/2018 Cbc With Differential Ord2 Baso ABS# 0.0 K/ul 02/24/2018 %Hba1C Rec667 % HbA1c 77760-3 6.5 % 02/24/2018 %Hba1C Hdl886 Gluc Ave 140 mg/dL 02/24/2018 Tsh Ord6 hTSH II 3.98 uIU/mL 11/03/2017 Comp Metabolic Dsh740 NA 139 mEq/L 11/03/2017 Comp Metabolic Lvb217 K 4.1 mEq/L 11/03/2017 Comp Metabolic Pdb498 CL 102 mEq/L 11/03/2017 Comp Metabolic Pkv900 CO2 28.0 mEq/L 11/03/2017 Comp Metabolic Ukl306 AN ION GAP 13 11/03/2017 Comp Metabolic Usm779 GL UCOSE 96 mg/dL 11/03/2017 Comp Metabolic Atw973 Cr eat 0.8 mg/dL 11/03/2017 Comp Metabolic Mvf069 eG FR 80 ml/min/1.73m2 11/03 Comp Metabolic Oks101 BUN 16 mg/dL 11/03/2017 Comp Metabolic Ius926 B/ C Ratio 21.3 Ratio 11/03/2017 Comp Metabolic Wsk301 CA LCIUM 9.5 mg/dL 11/03/2017 Comp Metabolic Kti638 AL K PHOS 73 U/L 11/03/2017 Comp Metabolic Gek160 T(SGOT) 26 U/L 11/03/2017 Comp Metabolic Iej770 AL T(SGPT) 22 U/L 11/03/2017 Comp Metabolic Odh010 BI LI T 0.4 mg/dL 11/03/2017 Comp Metabolic Vas122 AL BUMIN 4.1 g/dL 11/03/2017 Comp Metabolic Mur807 TP RO 6.3 g/dL 11/03/2017 Comp Metabolic Zxb437 GL OB 2.2 g/dL 11/03/2017 Comp Metabolic Bjm846 A/ G Ratio 1.9 Ratio 11/03/2017 Comp Metabolic Fnb690 Os mo 279 mOsmo 11/03/2017 Cbc With [...] 29.8 pg 11/03/2017 Cbc With Differential Ord2 [place]% 10.4 % 11/03/2017 Cbc With Differential Ord2 [...] 2.18 K/ul 11/03/2017 Cbc With Differential Ord2 [place] ABS# 0.7 K/ul 11/03/2017 Cbc With Differential Ord2 Eos ABS# 0.1 K/ul 11/03/2017 Cbc With Differential Ord2 Baso ABS# 0.0 K/ul 11/03/2017 Free T4 Ees058 FREE T4 0.75 ng/dL 11/03/2017 %Hba1C Ydm791 % HbA1c 96874-4 6.4 % 11/03/2017 %Hba1C Ewr851 Gluc Ave 137 mg/dL 11/03/2017 Tsh Ord6 hTSH II 1.77 uIU/mL 03/04/2017 Lipid Ord30 CHOL 125 mg/dL 03/04/2017 Lipid Ord30 HDL 38.0 mg/dl 03/04/2017 Lipid Ord30 TRIG 144 mg/dL 03/04/2017 Lipid Ord30 LDL 58 mg/dL 03/04/2017 Lipid Ord30 C/HDL 3.3 Ratio 03/04/2017 Microalbumin Tyx166 Micr oAlb <0.7 mg/dL 03/04/2017 Comp Metabolic Eme296 NA 139 mEq/L 03/04/2017 Comp Metabolic Dsh676 K 4.4 mEq/L 03/04/2017 Comp Metabolic Pxh905 CL 104 mEq/L 03/04/2017 Comp Metabolic Zod574 CO2 27.0 mEq/L 03/04/2017 Comp Metabolic Dbq550 AN ION GAP 12 03/04/2017 Comp Metabolic Yqh829 GL UCOSE 95 mg/dL 03/04/2017 Comp Metabolic Wfn255 Cr eat 0.8 mg/dL 03/04/2017 Comp Metabolic Qri863 eG FR 79 ml/min/1.73m2 03/04 Comp Metabolic Llr907 BUN 13 mg/dL 03/04/2017 Comp Metabolic Nvl142 B/ C Ratio 17.1 Ratio 03/04/2017 Comp Metabolic Cqu623 CA LCIUM 9.2 mg/dL 03/04/2017 Comp Metabolic Wco282 AL K PHOS 62 U/L 03/04/2017 Comp Metabolic Roz407 T(SGOT) 22 U/L 03/04/2017 Comp Metabolic Tfg309 AL T(SGPT) 22 U/L 03/04/2017 Comp Metabolic Pok333 BI LI T 0.5 mg/dL 03/04/2017 Comp Metabolic Wxk301 AL BUMIN 3.8 g/dL 03/04/2017 Comp Metabolic Pot893 TP RO 6.2 g/dL 03/04/2017 Comp Metabolic Uaw269 GL OB 2.4 g/dL 03/04/2017 Comp Metabolic Ipq862 A/ G Ratio 1.6 Ratio 03/04/2017 Comp Metabolic Swq352 Os mo 277 mOsmo 03/04/2017 %Hba1C Uoj670 % HbA1c 05176-2 6.2 % 03/04/2017 %Hba1C Smw284 Gluc Ave 131 mg/dL 03/04/2017 Cbc With [...] 30.6 pg 03/04/2017 Cbc With Differential Ord2 [place]% 9.6 % 03/04/2017 Cbc With Differential Ord2 [...] 1.84 K/ul 03/04/2017 Cbc With Differential Ord2 [place] ABS# 0.6 K/ul 03/04/2017 Cbc With Differential Ord2 Eos ABS# 0.1 K/ul 03/04/2017 Cbc With Differential Ord2 Baso ABS# 0.0 K/ul 03/04/2017 B12 Ifs993 B12 440.00 pg/ml 10/04/2016 Free T4 Wom670 FREE T4 0.77 ng/dL 10/04/2016 Cbc With [...] 92.1 fl 10/04/2016 Cbc With Differential Ord2 [place]% 8.0 % 10/04/2016 Cbc With Differential Ord2 [...] 2.77 K/ul 10/04/2016 Cbc With Differential Ord2 [place] ABS# 0.7 K/ul 10/04/2016 Cbc With Differential Ord2 Eos ABS# 0.1 K/ul 10/04/2016 Cbc With Differential Ord2 Baso ABS# 0.0 K/ul 10/04/2016 Comp Metabolic Drb672 NA 136 mEq/L 10/04/2016 Comp Metabolic Vzq017 K 4.0 mEq/L 10/04/2016 Comp Metabolic Tvu363 CL 100 mEq/L 10/04/2016 Comp Metabolic Ysl904 CO2 29.0 mEq/L 10/04/2016 Comp Metabolic Jdx150 AN ION GAP 11 10/04/2016 Comp Metabolic Heg325 GL UCOSE 92 mg/dL 10/04/2016 Comp Metabolic Gsd937 Cr eat 0.7 mg/dL 10/04/2016 Comp Metabolic Vgz645 eG FR 85 ml/min/1.73m2 10/04 Comp Metabolic Nnx901 BUN 17 mg/dL 10/04/2016 Comp Metabolic Nnq967 B/ C Ratio 23.6 Ratio 10/04/2016 Comp Metabolic Usy313 CA LCIUM 9.7 mg/dL 10/04/2016 Comp Metabolic Zol482 AL K PHOS 86 U/L 10/04/2016 Comp Metabolic Pqu724 T(SGOT) 23 U/L 10/04/2016 Comp Metabolic Yrx997 AL T(SGPT) 27 U/L 10/04/2016 Comp Metabolic Xhr938 BI LI T 0.3 mg/dL 10/04/2016 Comp Metabolic Lrn298 AL BUMIN 4.3 g/dL 10/04/2016 Comp Metabolic Ygt105 TP RO 6.9 g/dL 10/04/2016 Comp Metabolic Rbt977 GL OB 2.6 g/dL 10/04/2016 Comp Metabolic Dox886 A/ G Ratio 1.6 Ratio 10/04/2016 Comp Metabolic Bfj904 Os mo 273 mOsmo 10/04/2016 Tsh Ord6 hTSH II 3.75 uIU/mL 10/04/2016 Free T4 Nkx024 FREE T4 0.68 ng/dL 05/17/2016 Tsh Ord6 hTSH II 3.31 uIU/mL 05/17/2016 Alyssa Reflex Profile [id number] ALYSSA (MARCELLA) SCREEN NONE DETECTED 016 Tsh Ord6 hTSH II 6.78 uIU/mL 12/22/2015 C-Reactive Protein Qnt Crqnt CRP 0.2 mg/dl 12/22/2015 Sed Rate Ord21 ESR 15 mm/hr 12/22/2015 Free T4 Xdm021 FREE T4 0.70 ng/dL 12/22/2015 Comp Metabolic Ifb335 NA 138 mEq/L 12/22/2015 Comp Metabolic Puo103 K 4.3 mEq/L 12/22/2015 Comp Metabolic Jja901 CL 102 mEq/L 12/22/2015 Comp Metabolic Jfc067 CO2 28.0 mEq/L 12/22/2015 Comp Metabolic Osl962 AN ION GAP 12 12/22/2015 Comp Metabolic Vxh328 GL UCOSE 114 mg/dL 12/22/2015 Comp Metabolic Ipx512 Cr eat 0.8 mg/dL 12/22/2015 Comp Metabolic Mqp638 eG FR 80 ml/min/1.73m2 12/22 Comp Metabolic Jcs699 BUN 18 mg/dL 12/22/2015 Comp Metabolic Efl385 B/ C Ratio 23.7 Ratio 12/22/2015 Comp Metabolic Tee947 CA LCIUM 9.4 mg/dL 12/22/2015 Comp Metabolic Kji168 AL K PHOS 75 U/L 12/22/2015 Comp Metabolic Uof634 T(SGOT) 19 U/L 12/22/2015 Comp Metabolic Aqy356 AL T(SGPT) 20 U/L 12/22/2015 Comp Metabolic Uow666 BI LI T 0.5 mg/dL 12/22/2015 Comp Metabolic Hrd039 AL BUMIN 3.9 g/dL 12/22/2015 Comp Metabolic Hcf522 TP RO 6.2 g/dL 12/22/2015 Comp Metabolic Mss851 GL OB 2.3 g/dL 12/22/2015 Comp Metabolic Qgq144 A/ G Ratio 1.7 Ratio 12/22/2015 Comp Metabolic Awz768 Os mo 278 mOsmo 12/22/2015 Ra Factor Dmk752 RA FACT OR <10 IU/ml 12/22/2015 Lipid Ord30 CHOL 150 mg/dL 12/22/2015 Lipid Ord30 HDL 49.0 mg/dl 12/22/2015 Lipid Ord30 TRIG 108 mg/dL 12/22/2015 Lipid Ord30 LDL 79 mg/dL 12/22/2015 Lipid Ord30 C/HDL 3.1 Ratio 12/22/2015 %Hba1C Xlt257 % HbA1c 29406-8 6.2 % 12/22/2015 %Hba1C Vex845 Gluc Ave 131 mg/dL 12/22/2015 Cbc With [...] 92.3 fl 12/22/2015 Cbc With Differential Ord2 [place]% 7.5 % 12/22/2015 Cbc With Differential Ord2 [...] 2.06 K/ul 12/22/2015 Cbc With Differential Ord2 [place] ABS# 0.4 K/ul 12/22/2015 Cbc With Differential [...] Ord2 RDW 14.2 % 06/21/2015 Comp Metabolic Mfa017 NA 135 mEq/L 06/21/2015 Comp Metabolic Quv559 K 4.2 mEq/L 06/21/2015 Comp Metabolic Eeh616 CL 99 mEq/L 06/21/2015 Comp Metabolic Dhm540 CO2 27.0 mEq/L 06/21/2015 Comp Metabolic Xew458 AN ION GAP 13 06/21/2015 Comp Metabolic Cuj682 GL UCOSE 94 mg/dL 06/21/2015 Comp Metabolic Rxk557 Cr eat 0.8 mg/dL 06/21/2015 Comp Metabolic Zkm053 eG FR 81 ml/min/1.73m2 06/21 Comp Metabolic Efg275 BUN 16 mg/dL 06/21/2015 Comp Metabolic Lcf889 B/ C Ratio 21.3 Ratio 06/21/2015 Comp Metabolic Puo378 CA LCIUM 9.4 mg/dL 06/21/2015 Comp Metabolic [id number] AL K PHOS 164 U/L 06/21/2015 Comp Metabolic Mcl165 T(SGOT) 22 U/L 06/21/2015 Comp Metabolic Yjt027 AL T(SGPT) 23 U/L 06/21/2015 Comp Metabolic Hwg821 BI LI T 0.4 mg/dL 06/21/2015 Comp Metabolic Hxc574 AL BUMIN 4.0 g/dL 06/21/2015 Comp Metabolic Hhk972 TP RO 6.6 g/dL 06/21/2015 Comp Metabolic Pit706 GL OB 2.6 g/dL 06/21/2015 Comp Metabolic Yse435 A/ G Ratio 1.5 Ratio 06/21/2015 Comp Metabolic Sju435 Os mo 271 mOsmo 06/21/2015 URINALYSIS NONAUTO W/O SCOPE 60404 Specific [place] 1.010 DateTime(Free Text in Apr) URINALYSIS NONAUTO W/O SCOPE 41552 PH 6.0 DateTime(Free [place] t in ) URINALYSIS NONAUTO W/O SCOPE 95946 GLUCOSE NEG DateTime(Free [place] t in ) URINALYSIS NONAUTO W/O SCOPE 78191 Protein NEG DateTime(Free [place] t in Apr) URINALYSIS NONAUTO W/O SCOPE 25042 Blood TRACE DateTime(Free T ext in ) URINALYSIS NONAUTO W/O SCOPE 96369 Bilirubin NEG DateTime(Free [place] t in Apr) URINALYSIS NONAUTO W/O SCOPE 46387 Ketones NEG DateTime(Free Te xt in Febima) URINALYSIS NONAUTO W/O SCOPE 02017 Urobilinogen NEG DateTime(Free Text in Aprima) URINALYSIS NONAUTO W/O SCOPE 37327 Nitrite NEG DateTime(Free [place] t in Aprima) URINALYSIS NONAUTO W/O SCOPE 86911 Leukocytes NEG DateTime(Free Text in Aprima) UA 06714 Specific [place] 1.020 DateTime(Free Text in Aprima ) UA 53432 PH 5.0 DateTime(Free Text in Apr ) UA 42040 Protein neg DateTime(Free Text in Aprima ) UA 31458 Blood neg DateTime(Free Text in Aprima ) UA 69364 Bilirubin neg DateTime(Free Text in Aprima ) UA 90799 Ketones neg DateTime(Free Text in Aprima ) UA 48544 Urobilinogen 0.2 DateTime(Free Text in Aprima ) UA 43939 Nitrite neg DateTime(Free Text in ) UA 72871 Leukocytes neg DateTime(Free Text in ) Review [...] 09/03/2016 URINALYSIS NONAUTO W /O SCOPE CPT-4: 22706 06/23/2015 TRIAMCINOLONE ACET I [place] NOS CPT-4: J3301 03/28/2015 FOOT EXAM PERFORMED SNOMED CT: 43495226 CPT-4: 2028F 12/20/2013 PRESCRIP TRANSMIT A ERX SY CPT-4: G8553 10/25/2013 PRESCRIP TRANSMIT A ERX SY CPT-4: G8553 10/01/2012 URINALYSIS NONAUTO W /O SCOPE CPT-4: 28907 02/11/2012 PRESCRIP TRANSMIT A ERX SY CPT-4: G8553 02/11/2012 Vital Signs Date Vital 08/27/2018 Blood Pressure 1: 150/72 Code: 8480-6 BMI: 33.8 Code: 37571-3 Heart Rate 1: 77 bpm Height: 5'3" SpO2: 98% Weight: 191 lbs 02/24/2018 Blood Pressure 1: 140/72 Code: 8480-6 BMI: 33.5 Code: 06270-6 Heart Rate 1: 78 bpm Height: 5'3" SpO2: 98% Weight: 189 lbs 11/03/2017 Blood Pressure 1: 140/72 Code: 8480-6 BMI: 33.2 Code: 54481-9 Heart Rate 1: 71 bpm Height: 5'3" SpO2: 98% Weight: 187 lbs 8 oz 08/08/2017 Blood Pressure 1: 140/66 Code: 8480-6 BMI: 33.1 Code: 72498-0 Heart Rate 1: 73 bpm Height: 5'3" SpO2: 97% Weight: 187 lbs 07/10/2017 Blood Pressure 1: 144/74 Code: 8480-6 BMI: 33.5 Code: 89721-0 Heart Rate 1: 78 bpm Height: 5'3" SpO2: 94% Weight: 189 lbs 03/06/2017 Blood Pressure 1: 140/86 Code: 8480-6 BMI: 32.9 Code: 66752-9 Heart Rate 1: 68 bpm Height: 5'3" SpO2: 98% Weight: 186 lbs 03/04/2017 Blood Pressure 1: 136/82 Code: 8480-6 Heart Rate 1: 61 bpm Height: 5'3" SpO2: 97% Temperature: 36.6 (C ) / 97.8 (F) Weight: 11/04/2016 Blood Pressure 1: 146/76 Code: 8480-6 BMI: 34.7 Code: 59678-5 Heart Rate 1: 70 bpm Height: 5'3" SpO2: 97% Waist Measure (cm): 107 cm Weight: 196 lbs 10/23/2016 Blood Pressure 1: 148/78 Code: 8480-6 BMI: 34.7 Code: 61112-9 Heart Rate 1: 68 bpm Height: 5'3" SpO2: 97% Weight: 196 lbs 10/03/2016 Blood Pressure 1: 142/78 Code: 8480-6 BMI: 34.7 Code: 32106-8 Heart Rate 1: 72 bpm Height: 5'3" SpO2: 98% Weight: 196 lbs 09/03/2016 Blood Pressure 1: 128/88 Code: 8480-6 Heart Rate 1: 86 bpm SpO2: 96% 08/21/2016 Blood Pressure 1: 128/62 Code: 8480-6 BMI: 35.1 Code: 83448-2 Heart Rate 1: 80 bpm Height: 5'3" SpO2: 98% Weight: 198 lbs 07/24/2016 Blood Pressure 1: 150/86 Code: 8480-6 BMI: 34.4 Code: 16675-5 Heart Rate 1: 72 bpm Height: 5'3" SpO2: 97% Weight: 194 lbs 04/24/2016 Blood Pressure 1: 138/76 Code: 8480-6 BMI: 34.2 Code: 94794-6 Heart Rate 1: 71 bpm Height: 5'3" SpO2: 98% Weight: 193 lbs 01/18/2016 Blood Pressure 1: 140/72 Code: 8480-6 BMI: 33.4 Code: 65806-6 Heart Rate 1: 69 bpm Height: 5'3" SpO2: 98% Weight: 188 lbs 8 oz 12/21/2015 Blood Pressure 1: 158/78 Code: 8480-6 BMI: 33.3 Code: 43123-1 Heart Rate 1: 66 bpm Height: 5'3" SpO2: 98% Weight: 188 lbs 08/17/2015 Blood Pressure 1: 132/76 Code: 8480-6 BMI: 30.5 Code: 96765-6 Heart Rate 1: 66 bpm Height: 5'3" Respiratory Rate: 18 bpm SpO2: 97% Weight: 172 lbs 06/23/2015 Blood Pressure 1: 160/80 Code: 8480-6 Blood Pressure 2: 170/86 Code: 8480-6 BMI: 28.3 Code: 32247-8 Heart Rate 1: 96 bpm Height: 5'3" SpO2: 98% Temperature: 37.3 (C ) / 99.1 (F) Weight: 160 lbs 06/21/2015 Blood Pressure 1: 132/78 Code: 8480-6 Heart Rate 1: 106 bpm SpO2: 98% Temperature: 37.3 (C ) / 99.2 (F) Weight: 166 lbs 03/28/2015 Blood Pressure 1: 160/84 Code: 8480-6 Blood Pressure 2: 138/78 Code: 8480-6 BMI: 32.1 Code: 65737-2 Heart Rate 1: 86 bpm Height: 5'3" SpO2: 97% Weight: 181 lbs 07/07/2014 Blood Pressure 1: 138/82 Code: 8480-6 BMI: 32.6 Code: 39608-8 Heart Rate 1: 82 bpm Height: 5'3" SpO2: 96% Weight: 184 lbs 03/24/2014 Blood Pressure 1: 138/64 Code: 8480-6 BMI: 32.4 Code: 96317-6 Heart Rate 1: 72 bpm Height: 5'3" Weight: 183 lbs 01/20/2014 Blood Pressure 1: 149/69 Code: 8480-6 Blood Pressure 2: 170/82 Code: 8480-6 Heart Rate 1: 81 bpm Weight: 183 lbs 12/20/2013 Blood Pressure 1: 150/78 Code: 8480-6 BMI: 32.6 Code: 64518-0 Heart Rate 1: 76 bpm Height: 5'3" Weight: 184 lbs 10/25/2013 Blood Pressure 1: 167/80 Code: 8480-6 BMI: 33.3 Code: 19426-1 Heart Rate 1: 60 bpm Height: 5'3" Weight: 188 lbs 10/19/2013 Blood Pressure 1: 136/78 Code: 8480-6 BMI: 33.1 Code: 92849-0 Height: 5'3" Weight: 187 lbs 05/25/2013 Blood Pressure 1: 134/82 Code: 8480-6 BMI: 33.5 Code: 14095-4 Heart Rate 1: 80 bpm Height: 5'3" Weight: 189 lbs 02/18/2013 Blood Pressure 1: 158/88 Code: 8480-6 Blood Pressure 2: 158/90 Code: 8480-6 BMI: 33.7 Code: 34043-3 Heart Rate 1: 80 bpm Height: 5'3" Weight: 190 lbs 10/01/2012 Blood Pressure 1: 138/62 Code: 8480-6 Heart Rate 1: 76 bpm Weight: 184 lbs 05/18/2012 Blood Pressure 1: 150/82 Code: 8480-6 Blood Pressure 2: 136/84 Code: 8480-6 BMI: 32.1 Code: 30592-9 Heart Rate 1: 71 bpm Height: 5'3" SpO2: 98% Weight: 181 lbs 02/11/2012 Blood Pressure 1: 126/56 Code: 8480-6 Heart Rate 1: 68 bpm Respiratory Rate: 16 bpm Weight: 184 lbs 01/14/2012 Blood Pressure 1: 158/80 Code: 8480-6 BMI: 33.9 Code: 24245-2 Heart Rate 1: 60 bpm Height: 5'3" [...] readings at home 02/11/2012 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 [facility] Diagnosis: Type 2 diabetes mellitus with diabetic polyneuropathy[ICD10: E11.42] Diagnosis: Pain in left leg[ICD10: M79.605] Diagnosis: Pain in right leg[ICD10: M79.604] Carmelina Ott MD, [facility] CPT-4: 68196 08/27/2018 ([id number]) Miscellaneou s no charge Diagnosis: Other fatigue[ICD10: R53.83] Carmelina Ott MD, [facility] CPT-4: 87078 06/17/2018 ([id number]) 46063 EST. P ATIENT, LEVEL IV Diagnosis: Essential (primary) hypertension[ICD10: I10] Diagnosis: Hypothyroidism, unspecified[ICD10: E03.9] Diagnosis: Type 2 diabetes mellitus without complications[ICD10: E11.9] Diagnosis: Chronic pain syndrome[ICD10: G89.4] Diagnosis: Vitamin B12 deficiency anemia, unspecified[ICD10: D51.9] Diagnosis: Unsteadiness on feet[ICD10: R26.81] Nicki Ott MD, [facility] CPT-4: 76698 02/24/2018 ([id number]) 60183 EST. P ATIENT, LEVEL IV Diagnosis: Type 2 diabetes mellitus without complications[ICD10: E11.9] Diagnosis: Hypothyroidism, unspecified[ICD10: E03.9] Diagnosis: Essential (primary) hypertension[ICD10: I10] Diagnosis: Pain in left shoulder[ICD10: M25.512] Nicki Ott MD, [facility] CPT-4: 05610 11/03/2017 ([id number]) 17022 EST. P ATIENT, LEVEL III Diagnosis: Essential (primary) hypertension[ICD10: I10] Diagnosis: Major depressive disorder, recurrent, mild[ICD10: F33.0] Diagnosis: Other allergic rhinitis[ICD10: J30.89] [facility] CPT-4: 03263 08/08/2017 ([id number]) 47732 EST. P ATIENT, LEVEL IV Diagnosis: Hypothyroidism, unspecified[ICD10: E03.9] Diagnosis: Major depressive disorder, recurrent, mild[ICD10: F33.0] Diagnosis: Myalgia[ICD10: M79.1] Diagnosis: Chronic pain syndrome[ICD10: G89.4] Diagnosis: Essential (primary) hypertension[ICD10: I10] Nicki Ott MD, [facility] CPT-4: 30749 07/10/2017 ([id number]) 23815 EST. P ATIENT, LEVEL IV Diagnosis: Essential (primary) hypertension[ICD10: I10] Diagnosis: Atrophy of thyroid (acquired)[ICD10: E03.4] Diagnosis: Sacroiliitis, not elsewhere classified[ICD10: M46.1] Diagnosis: Mixed hyperlipidemia[ICD10: E78.2] Carmelina Ott MD, [facility] CPT- 4: 99077 03/06/2017 ([id number]) 89902 EST. P ATIENT, LEVEL II Diagnosis: Rash and other nonspecific skin eruption[ICD10: R21] Nicki Ott MD, [facility] CPT-4: 24759 03/04/2017 ([id number]) 68527 EST. P ATIENT, LEVEL IV Diagnosis: Type 2 diabetes mellitus without complications[ICD10: E11.9] Diagnosis: Essential (primary) hypertension[ICD10: I10] Diagnosis: Atrophy of thyroid (acquired)[ICD10: E03.4] Carmelina Ott MD, [facility] CPT-4: 39704 10/23/2016 33712 EST. PATIENT, LEVEL III Diagnosis: Other specified hypothyroidism[ICD10: E03.8] Diagnosis: Other specified anemias[ICD10: D64.89] Diagnosis: Pain in thoracic spine[ICD10: M54.6] Luz Ott MD, [facility] CPT- 4: 15267 10/03/2016 37410 EST. PATIENT, LEVEL II Diagnosis: Insect bite (nonvenomous) of other part of head, initial encounter[ICD10: S00.86XA] Nicki Ott MD, [facility] CPT-4: 03179 09/03/2016 ([id number]) 63632 EST. P ATIENT, LEVEL IV Diagnosis: Type 2 diabetes mellitus without complications[ICD10: E11.9] Diagnosis: Hypothyroidism, unspecified[ICD10: E03.9] Diagnosis: Essential (primary) hypertension[ICD10: I10] Carmelina Ott MD, [facility] CPT-4: 78173 08/21/2016 ([id number]) 55957 EST. P ATIENT, LEVEL IV Diagnosis: Essential (primary) hypertension[ICD10: I10] Diagnosis: Supraventricular tachycardia[ICD10: I47.1] Diagnosis: Other fatigue[ICD10: R53.83] Carmelina Ott MD, [facility] CPT-4: 43080 07/24/2016 ([id number]) 13361 EST. P ATIENT, LEVEL IV Diagnosis: Type 2 diabetes mellitus without complications[ICD10: E11.9] Diagnosis: Essential (primary) hypertension[ICD10: I10] Diagnosis: Hypothyroidism, unspecified[ICD10: E03.9] Carmelina Ott MD, [facility] CPT-4: 30194 04/24/2016 ([id number]) 82727 EST. P ATIENT, LEVEL IV Diagnosis: Type 2 diabetes mellitus without complications[ICD10: E11.9] Diagnosis: Type 2 diabetes mellitus with diabetic polyneuropathy[ICD10: E11.42] Carmelina Ott MD, [facility] CPT-4: 37160 01/18/2016 ([id number]) 48852 EST. P ATIENT, LEVEL IV Diagnosis: Urticaria, unspecified[ICD10: L50.9] Diagnosis: Dermatographic urticaria[ICD10: L50.3] Diagnosis: Hypothyroidism, unspecified[ICD10: E03.9] Diagnosis: Type 2 diabetes mellitus without complications[ICD10: E11.9] Diagnosis: Mixed hyperlipidemia[ICD10: E78.2] Diagnosis: Myalgia[ICD10: M79.1] Diagnosis: Essential (primary) hypertension[ICD10: I10] Carmelina Ott MD, [facility] CPT-4: 23291 12/21/2015 ([id number]) 70037 EST. P ATIENT, LEVEL IV Diagnosis: Hypothyroidism, unspecified[ICD10: E03.9] Diagnosis: Essential (primary) hypertension[ICD10: I10] Diagnosis: Urticaria, unspecified[ICD10: L50.9] Carmelina Ott MD, [facility] CPT-4: 83995 08/17/2015 ([id number]) Miscellaneou s no charge Diagnosis: ESSENTIAL HYPERTENSION[ICD9: 401.9] Diagnosis: Elevated temperature[ICD9: 780.60] Diagnosis: EDEMA[ICD9: 782.3] Katja Ott MD, [facility] CPT-4: 18444 06/23/2015 ([id number]) 58034 EST. P ATIENT, LEVEL IV Diagnosis: ESSENTIAL HYPERTENSION[ICD9: 401.9] Diagnosis: TACHYCARDIA[ICD9: 785.0] Diagnosis: Dyspnea[ICD9: 786.09] Katja Ott MD, [facility] CPT-4: 86173 06/21/2015 ([id number]) 36246 EST. P ATIENT, LEVEL III Diagnosis: Sacroiliitis[ICD9: 720.2] Diagnosis: LUMBAGO[ICD9: 724.2] Nicki Ott MD, [facility] CPT-4: 92110 03/28/2015 ([id number]) 61759 EST. P ATIENT, LEVEL IV Diagnosis: HYPOTHYROIDISM[ICD9: 244.9] Diagnosis: ESSENTIAL HYPERTENSION[ICD9: 401.9] Diagnosis: DIABETES TYPE II[ICD9: 250.00] Diagnosis: HYPERLIPIDEMIA[ICD9: 272.4] Diagnosis: Muscle ache[ICD9: 729.1] Carmelina Ott MD, [facility] CPT-4: 76034 07/07/2014 ([id number]) 16294 EST. P ATIENT, LEVEL IV Diagnosis: DIABETES TYPE II[SNOMED: 030992132] Diagnosis: ESSENTIAL HYPERTENSION[SNOMED: 78108378] Diagnosis: HYPOTHYROIDISM[ICD9: 244.9] Carmelina Ott MD, [facility] CPT-4: 26328 03/24/2014 ([id number]) 31785 EST. P ATIENT, LEVEL III Diagnosis: DIABETES TYPE II[SNOMED: 092617803] Diagnosis: ESSENTIAL HYPERTENSION[SNOMED: 77442075] Carmelina Ott MD, [facility] CPT-4: 18378 01/20/2014 ([id number]) 37818 EST. P ATIENT, LEVEL IV Diagnosis: DIABETES TYPE II[SNOMED: 828648712] Diagnosis: ESSENTIAL HYPERTENSION[SNOMED: 77275890] Diagnosis: Peripheral neuropathy, idiopathic[ICD9: 356.9] Carmelina Ott MD, [facility] CPT-4: 30972 12/20/2013 ([id number]) 24733 EST. P ATIENT, LEVEL IV Diagnosis: DIABETES TYPE II[SNOMED: 225488326] Diagnosis: ESSENTIAL HYPERTENSION[SNOMED: 94768909] Diagnosis: Dietary counseling and surveillance[ICD9: V65.3] Carmelina Ott MD, [facility] CPT-4: 96058 10/25/2013 ([id number]) 73366 EST. P ATIENT, LEVEL IV Diagnosis: DIABETES TYPE II[SNOMED: 536598843] Diagnosis: ESSENTIAL HYPERTENSION[SNOMED: 67099117] Diagnosis: HYPOTHYROIDISM[ICD9: 244.9] Carmelina Ott MD, [facility] CPT-4: 42711 10/19/2013 ([id number]) 08064 EST. P ATIENT, LEVEL IV Diagnosis: ESSENTIAL HYPERTENSION[SNOMED: 23624094] Diagnosis: DIABETES TYPE II[SNOMED: 844645058] Diagnosis: HYPOTHYROIDISM[ICD9: 244.9] Carmelina Ott MD, [facility] CPT-4: 53947 05/25/2013 ([id number]) 78055 EST. P ATIENT, LEVEL IV Diagnosis: DIABETES TYPE II[SNOMED: 978681090] Diagnosis: ESSENTIAL HYPERTENSION[SNOMED: 89181968] Diagnosis: HYPOTHYROIDISM[ICD9: 244.9] Carmelina Ott MD, [facility] CPT-4: 39346 02/18/2013 ([id number]) 66336 EST. P ATIENT, LEVEL III Diagnosis: ESSENTIAL HYPERTENSION[SNOMED: 50333997] Carmelina Ott MD, [facility] CPT-4: 75898 10/01/2012 ([id number]) 56771 EST. P ATIENT, LEVEL IV Diagnosis: DIABETES TYPE II[SNOMED: 598239330] Diagnosis: ESSENTIAL HYPERTENSION[SNOMED: 90363682] Carmelina Ott MD, [facility] CPT-4: 02917 05/18/2012 ([id number]) 01840 EST. P ATIENT, LEVEL IV Diagnosis: DIABETES TYPE II[SNOMED: 470800120] Diagnosis: HYPOTHYROIDISM[ICD9: 244.9] Diagnosis: UTI (lower urinary tract infection)[ICD9: 599.0] Diagnosis: Vaginal yeast infection[ICD9: 112.1] Diagnosis: Rectal lump[ICD9: 787.99] Diagnosis: Abdominal bloating[ICD9: 787.3] [facility] CPT-4: 06753 02/11/2012 [id number]) 55922 EST. P ATIENT, LEVEL IV Diagnosis: ESSENTIAL HYPERTENSION[SNOMED: 38728424] Diagnosis: DIABETES TYPE II[SNOMED: 469980764] Diagnosis: HYPERLIPIDEMIA[ICD9: 272.4] Diagnosis: HYPOTHYROIDISM[ICD9: 244.9] [facility] CPT-4: 58358 01/14/2012 Plan of Care Planned Activity Notes C odes Status Date Visit Plan: Diabetes Mellitus - con hooded [...] with Cymbalta. 08/27/2018 Appointment: Carmelina Ott WPtel: [address] [place], [place] [address] (15 min) Moderate 08/27/2018 Patient Education: Patient Medication Summary Completed 08/27/2018 Appointment: Nurse Visit 06/17/2018 Patient Education: Patient Medication Summary Completed 06/17/2018 Visit Plan: Hypertension - well soraida vasquez - continue with current medications, continue [...] Gait instabilty-patient going to do PT at [facility] 02/24/2018 Appointment: Nicki Cabral WPtel: [phone] [facility] [place] [address] (30 min) Complex 02/24/2018 Patient Education: Patient [...] improved. 11/03/2017 Appointment: Nicki Cabral WPtel: [phone] [phone] (30 min) Complex 11/03/2017 Patient Education: [...] spray in the nasal steroid allergy spray. Pxvwsztoho-lwlpdjqe-hlhvlhzp cymbalta 08/08/2017 Appointment: Nicki Cabral WPtel: [phone] (30 min) Complex 08/08/2017 Patient Education: [...] this patient. 07/10/2017 Appointment: Carmelina Ott WPtel: [facility]7 [facility] (15 min) Moderate 07/10/2017 Appointment: Nicki Cabral WPtel: [phone] (30 min) Complex 07/10/2017 Patient Education: [...] recommended pt to continue with aleve, get [place] to use on your knee and hip [...] control. 03/06/2017 App[facility]ment: [phone] (15 min) Moderate 03/06/2017 Patient Education: Patient Medication Summary Completed 03/06/2017 Patient Education: Obesity Completed 03/06/2017 Visit Plan: Rash-very faint-will cu lture the rash today- recommend emollient such as eucerin cream or cerave-call if rash does not resolve or if any worse. Patient verbalized understanding of plan. 03/04/2017 [facility]ment[phone] [place] (15 min) Moderate 03/04/2017 Patient Education: Patient Medication Summary Completed 03/04/2017 Appointment: [phone] [place] (15 min) Moderate 02/19/2017 Visit Plan: Medicare [...] care surrogate. 11/04/2016 Appointment: Luz Latham [facility]el[phone] [facility] [facility] - Annual Wellness Visit 11/04/2016 Patient Education: Patient Medication Summary Completed 11/04/2016 Visit Plan: Hypertension - well con hooded [...] of control. 10/23/2016 Appointment: [phone] (15 min) Moderate 10/23/2016 Patient Education: Patient [...] of control. 10/03/2016 Appointment: Luz Latham [facility]el[phone] (30 min) Complex 10/03/2016 Patient Education: Patient Medication Summary Completed 10/03/2016 Patient Education: Obesity Completed 10/03/2016 Visit Plan: Insect bite-right cheek -kenalog injection today in the office-use benadryl cream as needed for itching. Call for s/s of infection-increase redness, warmth, induration. Patient verbalized understanding of plan. 09/03/2016 Appointment: Nicki Cabral WPtel: [phone] [phone] (15 min) Moderate 09/03/2016 Patient Education: Patient [...] control. 08/21/2016 Appointment: Carmelina Ott WPtel: [phone] [facility] (15 min) Moderate 08/21/2016 Patient Education: Patient [...] of control. 04/24/2016 Appointment: Carmelina Ott WPtel: [address] [place], [place] [address] (15 min) Moderate 04/24/2016 Patient Education: Patient [...] peripheral neuropathy. 01/18/2016 Appointment: [phone] (15 min) Moderate 01/18/2016 Patient Education: Patient [...] today. 12/21/2015 Appointment: Carmelina Ott WPtel: [phone] [facility] (15 min) Moderate 12/21/2015 Patient Education: Patient [...] month 08/17/2015 Appointment: [phone] (15 min) Moderate 08/17/2015 Patient Education: Patient [...] x 2weeks and to talk to her art therapist about potential permanent decrease in her medication if the two week trial of a lower dose has helped to improve her symptoms of muscle aches and joint pain. 07/07/2014 Appointment: [facility] Ott [facility]Ptel[phone] Follow up 07/07/2014 Patient Education: Patient Medication [...] of control. 03/24/2014 Appointment: Carmelina Ott WPtel: [facility] [place] Follow up 03/24/2014 Patient Education: Patient Medication [...] controlled. 01/20/2014 Appointment: [facility] Ott [facility]Ptel: [phone] [place] Follow up 01/20/2014 Patient Education: Patient Medication Summary Completed 01/20/2014 Patient Education: Hypertension Completed 01/20/2014 Appointment: Carmelina Ott WPtel: [facility] [place] Follow up 01/17/2014 Visit Plan: Diabetes [...] diabetic control. 12/20/2013 Appointment: Carmelina Ott WPtel: [facility]7 [facility] Other 12/20/2013 Patient Education: Patient Medication Summary [...] WEEK 10/25/2013 Appointment: Carmelina Ott WPtel: [phone] [facility] Diabetic education 10/25/2013 Patient Education: Patient Medication [...] of control. 10/19/2013 Appointment: Carmelina Ott WPtel: [facility] Follow up 10/19/2013 Patient Education: Patient Medication Summary Completed 10/19/2013 Patient Education: Hypertension Completed 10/19/2013 Appointment: [facility] Ott [phone] Follow up 09/23/2013 Visit Plan: Hypertension - [...] control. 05/25/2013 Appointment: [facility] Ott [facility]Pt[phone] Follow up 05/25/2013 Patient Education: Patient Medication Summary Completed 05/25/2013 Patient Education: Hypertension Completed 05/25/2013 Appointment: [facility] Ott [facility]Ptel[phone] Follow up 05/19/2013 Visit Plan: Diabetes Mellitus [...] months. 02/18/2013 Appointment: [facility] Ott [facility]Ptel[phone] Follow up 02/18/2013 Patient Education: Patient Medication [...] resolved. 10/01/2012 Appointment: [facility] Ott [facility]Ptel[phone] Other 10/01/2012 Patient Education: Patient Medication Summary [...] for yeast 02/11/2012 Appointment: Carmelina Ott WPtel: [address] [place], [place] [address] pt will comment on meaningful use (from [...] kegel exercises. 01/14/2012 Appointment: Carmelina Ott WPtel: [facility] [place] Other 01/14/2012 Patient Education: Patient Medication Summary Completed 01/14/2012 Patient Education: High Blood Pressure: Essential Hypertension Completed 01/14/2012 Referral: Andrew Madera Referral Relationship Referral: Ravi Gaston WPtel: [address] [id number] [place] Referral Relationship Referral: Ella Saldana Referral [...] Gait instabilty-patient going to do PT at [facility] . Rash-very faint-wi ll culture the rash [...] last few reports - check Lipids today. CYMBALTA 30MG DAILY . Hypertension - well [...] spray in the nasal steroid allergy spray. Fmhubjfhaj-qsjpwawk-sqvmhliw cymbalta . Hypertension - wel l controlled [...] - hold the pravastatin x 1 month DECREASE THE METOPRO LOL ER TO 50MG [...] in blood pressure readings at home. CALL FRIDAY IF MIMI N NOT BETTER, WE CAN SEND FOR XRAYS AND LABS . Sacroiliitis - back exercises discusse d with the patient, pt to continue with anti-inflammatories. Pt is to call if the symptoms do not improve or if they worsen. Kenalog injection today in the office. Refill hydrocodone Keep applying chapst ick to lip Chest X-Ray at [facility] today We will write referral order for [...] ick to lip Chest X-Ray at [facility] today We will write referral order for [...] surgery has led to peripheral neuropathy. . Hypertension - jesse cobian controlled - continue with current medications, continue with no added salt diet. Pt has been encouraged to exercise daily. The pt has been advised to call the office if there are any acute concerns about change in blood pressure readings at home. Lateral femoral nerve entrapment - controlled and resolved. . HTN and Tachycardi a - htn [...] x 2weeks and to talk to her art therapist about potential permanent decrease in her medication [...] x 2weeks and to talk to her art therapist about potential permanent decrease in her medication [...] to call if symptoms are not improved. Try to avoid salt in take Keep [...] recommended pt to continue with aleve, get [place] to use on your knee and hip [...] recommended pt to continue with aleve, get [place] to use on your knee and hip [...] thyroid function studies in 3 months. . Medicare Exam - to day we [...] the patient to continue with Cymbalta. . Diabetes Mellitus - controlled - per [...] diabetic shoes, need greater diabetic control. . Diabetes Mellitus - uncertain of [...] - rx for diflucan for yeast . Insect bite-right cheek-kenalog injection today in the office-use benadryl cream as needed for itching. Call for s/s of infection- increase redness, warmth, induration. Patient verbalized understanding of plan. . Hypertension - wel l controlled - [...]
--- OUTSIDE RECORDS SUMMARY | 2020-05-26 12:25 | XMS REPORT | CCD ---
Author Author Aleyda Ott oh Organization Carmelina Ott MD, [facility] Address [facility] [place] [address] Phone Care Team Providers Care Automotive Brake Specialist Name Role Phone PP Unavailable CCM Unavailable Summary Purpose Interface Exchange Insurance Providers Payer name Policy type / Coverage type Covered libertarian ID Effective Begin Date Effective End Date WPS Medicare Part B Medicare Part B [id number] 2013 Unknown [facility] icare Part B [id number] 2013 Unkno wn Family history Brother Diagnosis Age At Onset Heart disease Unknown Sister Diagnosis Age At Onset endometrial cancer Unknown Father Diagnosis Age At Onset Heart disease Unknown Mother Diagnosis Age At Onset Heart disease Unknown Social History Social History Element Codes Description Effective Dates Marital status Unknown W idowed 01/14/[address]: 005907915 Nonsmoker 01/14/2012 Has the patient ever used [...] Date Stop Date Sta tus Fill Instructions metoprolol succinate ER 50 mg tablet,extended release 24 hr RxNorm: 474097 1 Tablet(s) PO QPM TAKE ONE TABLET BY MOUTH EVERY EVENING 10/20/2018 03/18/2019 Active metoprolol succinate ER 50 mg tablet,extended release 24 hr RxNorm: 069396 1 Tablet(s) PO QPM TAKE ONE TABLET BY MOUTH EVERY EVENING 05/08/2018 10/19/2018 Inactive Cymbalta 30 mg capsu le,delayed release RxNorm: 245808 TAKE ONE CAPSULE BY M OUTH DAILY 11/24/2017 11/18/2018 Ac tive Synthroid 50 mcg tablet RxNorm: 992048 TAKE ONE TABLET BY MOUTH DAILY (DISCONTI NUE LEVOTHYROXINE) 11/24/2017 02/16/2019 Active Voltaren 1 % topical gel RxNorm: 188678 [facility] 11/03 No Stop Date Active metoprolol succinate ER 50 mg tablet,extended release 24 hr RxNorm: 466798 1 Tablet(s) PO QPM TAKE ONE TABLET BY MOUTH EVERY EVENING 10/06/2017 05/03/2018 Inactive Synthroid 50 mcg tablet RxNorm: 082686 TAKE ONE TABLET BY MOUTH DAILY (DISCONTI NUE LEVOTHYROXINE) 09/04/2017 11/23/2017 Inactive Cymbalta 30 mg capsu le,delayed release RxNorm: 398002 1 Capsule(s) PO daily 07/10/2017 10/07/2017 In active metoprolol succinate ER 50 mg tablet,extended release 24 hr RxNorm: 907615 TAKE ONE TABLET BY MOUTH EVERY EVENING 03/06/2017 10/01/2017 Inactive Kenalog 40 mg/mL marguerite pension for injection RxNorm: 9418926 Milliliter(s) Inj 09/03/2016 09/03/2016 In active tramadol 50 mg tablet RxNorm: 026302 1 Tablet(s) PO Q4-6H as needed 08/21/2016 No Stop Date Active Synthroid 50 mcg tablet RxNorm: 033348 1 Tablet(s) PO daily 08/21/2016 08/15/2017 Inactive DC levothyroxine metoprolol succinate ER 25 mg tablet,extended release 24 hr RxNorm: 070926 1 Tablet(s) PO QAM 07/24/2016 08/20/2016 Inactive metoprolol succinate ER 50 mg tablet,extended release 24 hr RxNorm: 542113 1 Tablet(s) PO QPM 07/24/2016 02/18/2017 Inactive Synthroid 50 mcg tablet RxNorm: 958855 1 Tablet(s) PO daily 06/10/2016 08/20/2016 Inactive DC levothyroxine Synthroid 50 mcg tablet RxNorm: 465469 1 Tablet(s) PO daily 05/16/2016 06/09/2016 Inactive hydrocortisone 2.5 % topical cream RxNorm: 332416 1 Application TOP TID 05/08/2016 08/05/2016 In active hydrocortisone 2.5 % topical cream RxNorm: 908649 1 Application TOP TID 05/08/2016 05/07/2016 In active betamethasone diprop ionate 0.05 % topical cream RxNorm: 335044 1 Application TOP BID as needed 04/24/2016 05/07/2016 Inactive betamethasone diprop ionate 0.05 % topical cream RxNorm: 437978 1 Application TOP BID as needed 04/24/2016 04/23/2016 Inactive loratadine 10 mg tablet RxNorm: 028841 1 Tablet(s) PO daily 01/18/2016 05/16/2016 Inactive loratadine 10 mg dis integrating tablet RxNorm: 325150 1 Tablet(s) PO daily 01/18/2016 01/17/2016 In active Synthroid 50 mcg tablet RxNorm: 038687 1 Tablet(s) PO daily 01/01/2016 04/29/2016 Inactive Synthroid 50 mcg tablet RxNorm: 666173 1 Tablet(s) PO daily 01/01/2016 12/31/2015 Inactive prednisone 20 mg tablet RxNorm: 678030 3 Tablet(s) PO daily 09/11/2015 09/15/2015 Inactive prednisone 20 mg tablet RxNorm: 167713 3 Tablet(s) PO daily 09/11/2015 09/10/2015 Inactive Abreva 10 % topical cream RxNorm: 558035 1 Application TOP 5x daily 06/23/2015 07/12/2015 Inactive Apply to lip lesions 5 times per day for 10 days prednisone 20 mg tablet RxNorm: 658698 2 Tablet(s) PO daily x3 06/12/2015 06/14/2015 Inactive prednisone 20 mg tablet RxNorm: 252505 2 Tablet(s) PO daily x3 06/12/2015 06/11/2015 Inactive Kenalog 40 mg/mL marguerite pension for injection RxNorm: 1469684 1 Milliliter(s) Inj 03/28/2015 03/28/2015 In active hydrocodone 7.5 mg-a cetaminophen 325 mg tablet RxNorm: 285455 1 Tablet(s) PO Q4-6H as needed for back pain 03/28/2015 06/11/2015 Inactive Synthroid 50 mcg tablet RxNorm: 776358 1 Tablet(s) PO daily TAKE ONE TABLET BY MOUTH EVERY DAY 12/12/2014 12/11/2014 Inactive Synthroid 50 mcg tablet RxNorm: 420418 TAKE ONE TABLET BY MOUTH EVERY DAY 12/12/2014 12/20/2015 In active hydrocodone 7.5 mg-a cetaminophen 325 mg tablet RxNorm: 598274 1 Tablet(s) PO Q4-6H as needed for back pain 07/07/2014 09/04/2014 Inactive Synthroid 50 mcg tablet RxNorm: 301881 1 Tablet(s) PO daily TAKE ONE TABLET BY MOUTH EVERY DAY 07/07/2014 12/11/2014 Inactive Synthroid 50 mcg tablet RxNorm: 085359 TAKE ONE TABLET BY MOUTH EVERY DAY 06/06/2014 06/10/2014 In active Synthroid 50 mcg tablet RxNorm: 658795 TAKE ONE TABLET BY MOUTH EVERY DAY 06/06/2014 06/10/2014 In active Singulair 10 mg tablet RxNorm: 769507 Tablet(s) PO TAKE ONE TABLET BY MOUTH 03/03/2014 06/22/2015 Inactive hydrocodone 5 mg-kristofer taminophen 500 mg tablet RxNorm: 272370 Tablet(s) PO PRN 01/20/2014 07/06/2014 In active Synthroid 50 mcg tablet RxNorm: 270840 1 Tablet(s) PO daily name brand only 12/14/2013 12/13/2013 In active name brand only Synthroid 50 mcg tablet RxNorm: 137587 1 Tablet(s) PO daily name brand only 12/14/2013 06/05/2014 In active name brand only Januvia 50 mg tablet RxNorm: 472793 1 Tablet(s) PO daily 03/24/2013 05/25/2013 Inactive Singulair 10 mg tablet RxNorm: 285957 Tablet(s) PO TAKE ONE TABLET BY MOUTH 03/02/2013 03/02/2014 Inactive levothyroxine 50 mcg tablet RxNorm: 666991 1 Tablet(s) PO daily 02/03/2013 02/02/2013 Inactive levothyroxine 50 mcg tablet RxNorm: 000536 1 Tablet(s) PO daily 02/03/2013 10/18/2013 Inactive levothyroxine 25 mcg tablet RxNorm: 373340 1 1/2 Tablet(s) PO daily 01/29/2013 02/02/2013 Inactive one and one half tab daily (1 11/18)may zhang ve 90 day supply if cheaper levothyroxine 25 mcg tablet RxNorm: 928138 Tablet(s) PO TAKE 1 A ND 1/2 TABLETS ONCE DAILY 11/02/2012 05/25/2013 Inactive glipizide 5 mg tablet RxNorm: 936741 Tablet(s) PO TAKE ONE-HALF TABLET BY ADÁN TH EVERY DAY 10/19/2012 05/25/2013 Inactive metformin 500 mg tablet RxNorm: 494993 Tablet(s) PO TAKE ONE-HALF TABLET BY ADÁN TH TWICE A DAY 10/19/2012 05/25/2013 Inactive Voltaren 1 % Topical Gel RxNorm: 026398 4 Gram(s) TOP QID 10/01/2012 12/25/2015 Inactive levothyroxine 25 mcg tablet RxNorm: 924379 1 1/2 Tablet(s) PO daily 08/03/2012 01/28/2013 Inactive one and one half tab daily (1 1/2)may zhang ve 90 day supply if cheaper metformin 500 mg tablet RxNorm: 218041 1/2 Tablet(s) PO BID 03/03/2012 08/29/2012 Inactive glipizide 5 mg Tab RxNorm: 744623 1/2 Tablet(s) PO daily 03/03/2012 03/02/2012 Inactive metformin 500 mg Tab RxNorm: 022803 1/2 Tablet(s) PO BID 03/03/2012 03/02/2012 Inactive glipizide 5 mg tablet RxNorm: 874693 1/2 Tablet(s) PO daily 03/03/2012 08/29/2012 Inactive Singulair 10 mg tablet RxNorm: 242902 1 Tablet(s) PO daily 03/02/2012 03/01/2013 Inactive Bactrim DS 800 mg-16 0 mg Tab RxNorm: 911410 1 Tablet(s) PO BID 02/11/2012 02/20/2012 Inactive fluconazole 150 mg Tab RxNorm: 053967 1 Tablet(s) PO daily 02/11/2012 05/25/2013 Inactive levothyroxine 25 mcg tablet RxNorm: 539778 1 1/2 Tablet(s) PO daily 01/15/2012 07/12/2012 Inactive one and one half tab daily (11/18)march zhang ve 90 day supply if cheaper levothyroxine 100 mc g Tab RxNorm: 104869 1 Tablet(s) PO daily 09/04/2011 01/14/2012 Inactive Singulair 10 mg Tab RxNorm: 894407 1 Tablet(s) PO daily 09/04/2011 03/01/2012 Inactive zinc lozenges RxNorm: 1 PO QHS No Start Date Active Vitamin B-6 100 mg t ablet RxNorm: 365237 2 Tablet(s) PO QPM No Start Date Active Zinc Chelate 15 mg t ablet RxNorm: 1 Tablet(s) PO daily with 1 ,000 mg calcium No Start Date Active Vitamin D3 2,000 uni t tablet RxNorm: 984037 1 Tablet(s) PO QPM No Start Date Active Artificial Tears RxNorm: 796931 ophthalmic No Start Date Active pravastatin 20 mg ta blet RxNorm: 004211 1 Tablet(s) PO QHS No Start Date Active Nitrostat 0.4 mg Sub lingual Tab RxNorm: 609480 Tablet(s) SL PRN No Start Date Active Vitamin C 100 mg tablet RxNorm: 526664 1 Tablet(s) PO QHS No Start Date Active Fish Oil 360 mg-1,20 0 mg capsule RxNorm: 662417 1 Capsule(s) PO daily No Start Date Active latanoprost 0.005 % eye drops RxNorm: 389097 1 Drop(s) OPH each ey e QHS No Start Date Active Vitamin B-12 1,000 m cg tablet RxNorm: 976488 1 Tablet(s) PO daily No Start Date Active Minto Saline nasal RxNorm: 9863 nasal No Start Date Active Flintstones Complete oral RxNorm: oral No Start D ate Active aspirin 81 mg Tab, D elayed Release RxNorm: 828541 1 Tablet(s) PO daily No Start Date Active vitamin D3-menaquino ne 7 Oral RxNorm: Oral No Start D ate 12/26/2015 Inactive vitamin B6-vitamin E -magnesium Tab RxNorm: 1 Tablet(s) PO daily No Start Date 12/26/2015 Inactive Zinc Chelate 15 mg t ablet RxNorm: 1 Tablet(s) PO daily with 4 00 mg Magnesium No Start Date 10/23/2016 Inactive pravastatin 20 mg ta blet RxNorm: 772180 1 Tablet(s) PO daily No Start Date 01/19/2014 Inactive Zocor 20 mg Tab RxNorm: 264472 1 Tablet(s) PO QHS No Start Date 05/25/2013 Inactive Plavix 75 mg tablet RxNorm: 281946 1 Tablet(s) PO daily No Start Date 03/28/2015 Inactive metoprolol succinate ER 100 mg tablet,extended release 24 hr RxNorm: 476336 1 Tablet(s) PO daily No Start Date 07/23/2016 Inactive Januvia 100 mg Tab RxNorm: 723737 1 Tablet(s) PO daily No Start Date 05/25/2013 Inactive tramadol 50 mg tablet RxNorm: 733126 1 Tablet(s) PO as needed No Start Date 08/20/2016 Inactive Flintstones Complete Oral RxNorm: Oral No Start D ate 12/26/2015 Inactive Plavix 75 mg Tab RxNorm: 689756 1 Tablet(s) PO every other day No Start Date 05/25/2013 Inactive Accu-Chek Compact Te st strips RxNorm: 1 test Miscellaneous BID No Start Date 10/22/2016 Inactive accu-chek compact plus Accu-Chek Softclix L ancets RxNorm: 1 test Miscellaneous daily No Start Date 10/22/2016 Inactive Fish Oil 1,000 mg Cap RxNorm: 1 Capsule(s) PO daily No Start Date 12/26/2015 Inactive Januvia 50 mg tablet RxNorm: 806253 Tablet(s) PO No Start Date 03/23/2013 Inactive hydrocodone 5 mg-kristofer taminophen 500 mg tablet RxNorm: 791810 Tablet(s) PO PRN No Start Date 01/19/2014 Inactive Synthroid 50 mcg tablet RxNorm: 507475 1 Tablet(s) PO daily name brand only No Start Date 12/13/2013 Inactive name brand only levothyroxine 25 mcg Tab RxNorm: 081197 1 Tablet(s) PO daily 1 tab q morning on empty stomach No Start Date 01/13/2012 Inactive metoprolol succinate ER 50 mg 24 hr Tab RxNorm: 751079 1 Tablet(s) PO daily No Start Date 12/25/2015 Inactive pravastatin 40 mg ta blet RxNorm: 560197 Tablet(s) PO No Start Date 12/25/2015 Inactive latanoprost Opht RxNorm: Ophthalmic No Start Date 12/26/2015 Inactive cranberry Oral RxNorm: Oral No Start Date 06/22/2015 Inactive Medication Administered Medication Codes Instruc tions Start Date Status Kenalog 40 mg/mL suspension for injection RxNorm: 9098351 Milliliter 09/03/2016 No longer Active Kenalog 40 mg/mL suspension for injection RxNorm: 5492298 1Milliliter 03/28/2015 N o longer Active Immunizations [...] Item Item Code Result Date Comp Metabolic Hme392 NA 138 mEq/L 02/24/2018 Comp Metabolic Zlu928 K 4.3 mEq/L 02/24/2018 Comp Metabolic Zqw888 CL 103 mEq/L 02/24/2018 Comp Metabolic Jag421 CO2 27.0 mEq/L 02/24/2018 Comp Metabolic Qbd924 AN ION GAP 12 02/24/2018 Comp Metabolic Tzr773 GL UCOSE 96 mg/dL 02/24/2018 Comp Metabolic Evv789 Cr eat 0.7 mg/dL 02/24/2018 Comp Metabolic Dpd756 eG FR 86 ml/min/1.73m2 02/24 Comp Metabolic Jgh792 BUN 17 mg/dL 02/24/2018 Comp Metabolic Pnh978 B/ C Ratio 23.9 Ratio 02/24/2018 Comp Metabolic Bge890 CA LCIUM 9.2 mg/dL 02/24/2018 Comp Metabolic Prr129 AL K PHOS 67 U/L 02/24/2018 Comp Metabolic Oqe423 T(SGOT) 25 U/L 02/24/2018 Comp Metabolic Oar126 AL T(SGPT) 25 U/L 02/24/2018 Comp Metabolic Efv426 BI LI T 0.3 mg/dL 02/24/2018 Comp Metabolic Kgd132 AL BUMIN 3.9 g/dL 02/24/2018 Comp Metabolic Lyo412 TP RO 6.5 g/dL 02/24/2018 Comp Metabolic Mlq340 GL OB 2.6 g/dL 02/24/2018 Comp Metabolic Upm726 A/ G Ratio 1.5 Ratio 02/24/2018 Comp Metabolic Hlv731 Os mo 277 mOsmo 02/24/2018 Free T4 Epa876 FREE T4 0.71 ng/dL 02/24/2018 Tsh Ord6 TSH (3rd IS) 2.53 uIU/mL 02/24/2018 B12 Ins572 B12 360.00 pg/ml 02/24/2018 Cbc With Differential [...] 30.4 pg 02/24/2018 Cbc With Differential Ord2 Imperial% 11.3 % 02/24/2018 Cbc With Differential Ord2 [...] 2.18 K/ul 02/24/2018 Cbc With Differential Ord2 Imperial ABS# 0.8 K/ul 02/24/2018 Cbc With Differential Ord2 Eos ABS# 0.2 K/ul 02/24/2018 Cbc With Differential Ord2 Baso ABS# 0.0 K/ul 02/24/2018 %Hba1C Tmr004 % HbA1c 05783-2 6.5 % 02/24/2018 %Hba1C Hxu459 Gluc Ave 140 mg/dL 02/24/2018 Tsh Ord6 hTSH II 3.98 uIU/mL 11/03/2017 Comp Metabolic Aem612 NA 139 mEq/L 11/03/2017 Comp Metabolic Pji874 K 4.1 mEq/L 11/03/2017 Comp Metabolic Ogw576 CL 102 mEq/L 11/03/2017 Comp Metabolic Ntq919 CO2 28.0 mEq/L 11/03/2017 Comp Metabolic Qpl717 AN ION GAP 13 11/03/2017 Comp Metabolic Mre679 GL UCOSE 96 mg/dL 11/03/2017 Comp Metabolic Bve438 Cr eat 0.8 mg/dL 11/03/2017 Comp Metabolic Vln753 eG FR 80 ml/min/1.73m2 11/03 Comp Metabolic Ovd431 BUN 16 mg/dL 11/03/2017 Comp Metabolic Typ713 B/ C Ratio 21.3 Ratio 11/03/2017 Comp Metabolic Iic691 CA LCIUM 9.5 mg/dL 11/03/2017 Comp Metabolic Dxu822 AL K PHOS 73 U/L 11/03/2017 Comp Metabolic Tuh245 T(SGOT) 26 U/L 11/03/2017 Comp Metabolic Gtx868 AL T(SGPT) 22 U/L 11/03/2017 Comp Metabolic Rqc714 BI LI T 0.4 mg/dL 11/03/2017 Comp Metabolic Dwt480 AL BUMIN 4.1 g/dL 11/03/2017 Comp Metabolic Kiu088 TP RO 6.3 g/dL 11/03/2017 Comp Metabolic Wxg059 GL OB 2.2 g/dL 11/03/2017 Comp Metabolic Wsk368 A/ G Ratio 1.9 Ratio 11/03/2017 Comp Metabolic Rqi031 Os mo 279 mOsmo 11/03/2017 Cbc With [...] 29.8 pg 11/03/2017 Cbc With Differential Ord2 Imperial% 10.4 % 11/03/2017 Cbc With Differential Ord2 [...] 2.18 K/ul 11/03/2017 Cbc With Differential Ord2 Imperial ABS# 0.7 K/ul 11/03/2017 Cbc With Differential Ord2 Eos ABS# 0.1 K/ul 11/03/2017 Cbc With Differential Ord2 Baso ABS# 0.0 K/ul 11/03/2017 Free T4 Mbx630 FREE T4 0.75 ng/dL 11/03/2017 %Hba1C Ith574 % HbA1c 36117-0 6.4 % 11/03/2017 %Hba1C Xdf908 Gluc Ave 137 mg/dL 11/03/2017 Tsh Ord6 hTSH II 1.77 uIU/mL 03/04/2017 Lipid Ord30 CHOL 125 mg/dL 03/04/2017 Lipid Ord30 HDL 38.0 mg/dl 03/04/2017 Lipid Ord30 TRIG 144 mg/dL 03/04/2017 Lipid Ord30 LDL 58 mg/dL 03/04/2017 Lipid Ord30 C/HDL 3.3 Ratio 03/04/2017 Microalbumin Xff401 Micr oAlb <0.7 mg/dL 03/04/2017 Comp Metabolic Asf641 NA 139 mEq/L 03/04/2017 Comp Metabolic Flo766 K 4.4 mEq/L 03/04/2017 Comp Metabolic Cze733 CL 104 mEq/L 03/04/2017 Comp Metabolic Fqf455 CO2 27.0 mEq/L 03/04/2017 Comp Metabolic Yon066 AN ION GAP 12 03/04/2017 Comp Metabolic Iac911 GL UCOSE 95 mg/dL 03/04/2017 Comp Metabolic Kfd377 Cr eat 0.8 mg/dL 03/04/2017 Comp Metabolic Zwi126 eG FR 79 ml/min/1.73m2 03/04 Comp Metabolic Vil769 BUN 13 mg/dL 03/04/2017 Comp Metabolic Bcj455 B/ C Ratio 17.1 Ratio 03/04/2017 Comp Metabolic Qad096 CA LCIUM 9.2 mg/dL 03/04/2017 Comp Metabolic Qce745 AL K PHOS 62 U/L 03/04/2017 Comp Metabolic Rig062 T(SGOT) 22 U/L 03/04/2017 Comp Metabolic Bjl610 AL T(SGPT) 22 U/L 03/04/2017 Comp Metabolic Mnm346 BI LI T 0.5 mg/dL 03/04/2017 Comp Metabolic Ddv580 AL BUMIN 3.8 g/dL 03/04/2017 Comp Metabolic Lvs601 TP RO 6.2 g/dL 03/04/2017 Comp Metabolic Ddy748 GL OB 2.4 g/dL 03/04/2017 Comp Metabolic Fad627 A/ G Ratio 1.6 Ratio 03/04/2017 Comp Metabolic Zfx570 Os mo 277 mOsmo 03/04/2017 %Hba1C Wgq391 % HbA1c 08402-2 6.2 % 03/04/2017 %Hba1C Cwf001 Gluc Ave 131 mg/dL 03/04/2017 Cbc With [...] 30.6 pg 03/04/2017 Cbc With Differential Ord2 Imperial% 9.6 % 03/04/2017 Cbc With Differential Ord2 [...] 1.84 K/ul 03/04/2017 Cbc With Differential Ord2 Imperial ABS# 0.6 K/ul 03/04/2017 Cbc With Differential Ord2 Eos ABS# 0.1 K/ul 03/04/2017 Cbc With Differential Ord2 Baso ABS# 0.0 K/ul 03/04/2017 B12 Jrj665 B12 440.00 pg/ml 10/04/2016 Free T4 Aji033 FREE T4 0.77 ng/dL 10/04/2016 Cbc With [...] 92.1 fl 10/04/2016 Cbc With Differential Ord2 Imperial% 8.0 % 10/04/2016 Cbc With Differential Ord2 [...] 2.77 K/ul 10/04/2016 Cbc With Differential Ord2 Imperial ABS# 0.7 K/ul 10/04/2016 Cbc With Differential Ord2 Eos ABS# 0.1 K/ul 10/04/2016 Cbc With Differential Ord2 Baso ABS# 0.0 K/ul 10/04/2016 Comp Metabolic Mfb367 NA 136 mEq/L 10/04/2016 Comp Metabolic Isj156 K 4.0 mEq/L 10/04/2016 Comp Metabolic Czc709 CL 100 mEq/L 10/04/2016 Comp Metabolic Jpr827 CO2 29.0 mEq/L 10/04/2016 Comp Metabolic Fgw744 AN ION GAP 11 10/04/2016 Comp Metabolic Ezg019 GL UCOSE 92 mg/dL 10/04/2016 Comp Metabolic Tep467 Cr eat 0.7 mg/dL 10/04/2016 Comp Metabolic Jet766 eG FR 85 ml/min/1.73m2 10/04 Comp Metabolic Ene189 BUN 17 mg/dL 10/04/2016 Comp Metabolic Pte422 B/ C Ratio 23.6 Ratio 10/04/2016 Comp Metabolic Okt375 CA LCIUM 9.7 mg/dL 10/04/2016 Comp Metabolic Qfp052 AL K PHOS 86 U/L 10/04/2016 Comp Metabolic Skd097 T(SGOT) 23 U/L 10/04/2016 Comp Metabolic Rtl392 AL T(SGPT) 27 U/L 10/04/2016 Comp Metabolic Wqo724 BI LI T 0.3 mg/dL 10/04/2016 Comp Metabolic Lmr301 AL BUMIN 4.3 g/dL 10/04/2016 Comp Metabolic Akk970 TP RO 6.9 g/dL 10/04/2016 Comp Metabolic Jqd386 GL OB 2.6 g/dL 10/04/2016 Comp Metabolic Kfa840 A/ G Ratio 1.6 Ratio 10/04/2016 Comp Metabolic Jtf996 Os mo 273 mOsmo 10/04/2016 Tsh Ord6 hTSH II 3.75 uIU/mL 10/04/2016 Free T4 Lau622 FREE T4 0.68 ng/dL 05/17/2016 Tsh Ord6 hTSH II 3.31 uIU/mL 05/17/2016 Alyssa Reflex Profile [id number] ALYSSA (MARCELLA) SCREEN NONE DETECTED 016 Tsh Ord6 hTSH II 6.78 uIU/mL 12/22/2015 C-Reactive Protein Qnt Crqnt CRP 0.2 mg/dl 12/22/2015 Sed Rate Ord21 ESR 15 mm/hr 12/22/2015 Free T4 Fbf443 FREE T4 0.70 ng/dL 12/22/2015 Comp Metabolic Dzx139 NA 138 mEq/L 12/22/2015 Comp Metabolic Bej336 K 4.3 mEq/L 12/22/2015 Comp Metabolic Lst918 CL 102 mEq/L 12/22/2015 Comp Metabolic Hzx223 CO2 28.0 mEq/L 12/22/2015 Comp Metabolic Qkn874 AN ION GAP 12 12/22/2015 Comp Metabolic Bbh875 GL UCOSE 114 mg/dL 12/22/2015 Comp Metabolic Sni895 Cr eat 0.8 mg/dL 12/22/2015 Comp Metabolic Fkt394 eG FR 80 ml/min/1.73m2 12/22 Comp Metabolic Rgp136 BUN 18 mg/dL 12/22/2015 Comp Metabolic Cue536 B/ C Ratio 23.7 Ratio 12/22/2015 Comp Metabolic Emz950 CA LCIUM 9.4 mg/dL 12/22/2015 Comp Metabolic Kai753 AL K PHOS 75 U/L 12/22/2015 Comp Metabolic Arr928 T(SGOT) 19 U/L 12/22/2015 Comp Metabolic Bqq033 AL T(SGPT) 20 U/L 12/22/2015 Comp Metabolic Xmg343 BI LI T 0.5 mg/dL 12/22/2015 Comp Metabolic Mff586 AL BUMIN 3.9 g/dL 12/22/2015 Comp Metabolic Msi371 TP RO 6.2 g/dL 12/22/2015 Comp Metabolic Tup253 GL OB 2.3 g/dL 12/22/2015 Comp Metabolic Ynb655 A/ G Ratio 1.7 Ratio 12/22/2015 Comp Metabolic Rnd380 Os mo 278 mOsmo 12/22/2015 Ra Factor Akw570 RA FACT OR <10 IU/ml 12/22/2015 Lipid Ord30 CHOL 150 mg/dL 12/22/2015 Lipid Ord30 HDL 49.0 mg/dl 12/22/2015 Lipid Ord30 TRIG 108 mg/dL 12/22/2015 Lipid Ord30 LDL 79 mg/dL 12/22/2015 Lipid Ord30 C/HDL 3.1 Ratio 12/22/2015 %Hba1C Kct826 % HbA1c 82027-0 6.2 % 12/22/2015 %Hba1C Fdl176 Gluc Ave 131 mg/dL 12/22/2015 Cbc With [...] 35.3 % 12/22/2015 Cbc With Differential Ord2 Imperial% 7.5 % 12/22/2015 Cbc With Differential Ord2 [...] 2.06 K/ul 12/22/2015 Cbc With Differential Ord2 Imperial ABS# 0.4 K/ul 12/22/2015 Cbc With Differential [...] Ord2 RDW 14.2 % 06/21/2015 Comp Metabolic Zpa862 NA 135 mEq/L 06/21/2015 Comp Metabolic Tms844 K 4.2 mEq/L 06/21/2015 Comp Metabolic Ioh396 CL 99 mEq/L 06/21/2015 Comp Metabolic Yii105 CO2 27.0 mEq/L 06/21/2015 Comp Metabolic Gnd117 AN ION GAP 13 06/21/2015 Comp Metabolic Exc567 GL UCOSE 94 mg/dL 06/21/2015 Comp Metabolic Zwm639 Cr eat 0.8 mg/dL 06/21/2015 Comp Metabolic Ddl815 eG FR 81 ml/min/1.73m2 06/21 Comp Metabolic Qqt040 BUN 16 mg/dL 06/21/2015 Comp Metabolic Anp453 B/ C Ratio 21.3 Ratio 06/21/2015 Comp Metabolic Hqj216 CA LCIUM 9.4 mg/dL 06/21/2015 Comp Metabolic Atd604 AL K PHOS 164 U/L 06/21/2015 Comp Metabolic Tca579 T(SGOT) 22 U/L 06/21/2015 Comp Metabolic Igw731 AL T(SGPT) 23 U/L 06/21/2015 Comp Metabolic Bnt147 BI LI T 0.4 mg/dL 06/21/2015 Comp Metabolic Hqi782 AL BUMIN 4.0 g/dL 06/21/2015 Comp Metabolic Ysl385 TP RO 6.6 g/dL 06/21/2015 Comp Metabolic Pwe679 GL OB 2.6 g/dL 06/21/2015 Comp Metabolic Fcm650 A/ G Ratio 1.5 Ratio 06/21/2015 Comp Metabolic Fvy833 Os mo 271 mOsmo 06/21/2015 URINALYSIS NONAUTO W/O SCOPE 84539 Specific [place] 1.010 DateTime(Free Text in Aprima) URINALYSIS NONAUTO W/O SCOPE 88221 PH 6.0 DateTime(Free [place] t in Aprima) URINALYSIS NONAUTO W/O SCOPE 03948 GLUCOSE NEG DateTime(Free [place] t in Aprima) URINALYSIS NONAUTO W/O SCOPE 96277 Protein NEG DateTime(Free [place] t in Aprima) URINALYSIS NONAUTO W/O SCOPE 23281 Blood TRACE DateTime(Free T ext in ) URINALYSIS NONAUTO W/O SCOPE 24967 Bilirubin NEG DateTime(Free [place] t in Aprima) URINALYSIS NONAUTO W/O SCOPE 40614 Ketones NEG DateTime(Free Te xt in Aprima) URINALYSIS NONAUTO W/O SCOPE 26577 Urobilinogen NEG DateTime(Free Text in Aprima) URINALYSIS NONAUTO W/O SCOPE 56428 Nitrite NEG DateTime(Free [place] t in Aprima) URINALYSIS NONAUTO W/O SCOPE 28176 Leukocytes NEG DateTime(Free Text in Aprima) UA 52936 Specific [place] 1.020 DateTime(Free Text in Aprima ) UA 41377 PH 5.0 DateTime(Free Text in Aprima ) UA 59128 Protein neg DateTime(Free Text in Aprima ) UA 02510 Blood neg DateTime(Free Text in Aprima ) UA 45772 Bilirubin neg DateTime(Free Text in Aprima ) UA 24736 Ketones neg DateTime(Free Text in Aprima ) UA 58231 Urobilinogen 0.2 DateTime(Free Text in Aprima ) UA 45888 Nitrite neg DateTime(Free Text in Aprima ) UA 66215 Leukocytes neg DateTime(Free Text in Aprima ) Review of Systems System Result Effective [...] bruits 10/19/2013 None Full Exam - General 1995 [...] masses 02/11/2012 None Full Exam - General 1995 Respiratory [...] 09/03/2016 URINALYSIS NONAUTO W /O SCOPE CPT-4: 16129 06/23/2015 TRIAMCINOLONE ACET I [place] NOS CPT-4: J3301 03/28/2015 FOOT EXAM PERFORMED SNOMED CT: 88451486 CPT-4: 2028F 12/20/2013 PRESCRIP TRANSMIT A ERX SY CPT-4: G8553 10/25/2013 PRESCRIP TRANSMIT A ERX SY CPT-4: G8553 10/01/2012 URINALYSIS NONAUTO W /O SCOPE CPT-4: 40246 02/11/2012 PRESCRIP TRANSMIT A ERX SY CPT-4: G8553 02/11/2012 Vital Signs Date Vital 08/27/2018 Blood Pressure 1: 150/72 Code: 8480-6 BMI: 33.8 Code: 51618-2 Heart Rate 1: 77 bpm Height: 5'3" SpO2: 98% Weight: 191 lbs 02/24/2018 Blood Pressure 1: 140/72 Code: 8480-6 BMI: 33.5 Code: 08499-6 Heart Rate 1: 78 bpm Height: 5'3" SpO2: 98% Weight: 189 lbs 11/03/2017 Blood Pressure 1: 140/72 Code: 8480-6 BMI: 33.2 Code: 57586-6 Heart Rate 1: 71 bpm Height: 5'3" SpO2: 98% Weight: 187 lbs 8 oz 08/08/2017 Blood Pressure 1: 140/66 Code: 8480-6 BMI: 33.1 Code: 95128-8 Heart Rate 1: 73 bpm Height: 5'3" SpO2: 97% Weight: 187 lbs 07/10/2017 Blood Pressure 1: 144/74 Code: 8480-6 BMI: 33.5 Code: 92292-8 Heart Rate 1: 78 bpm Height: 5'3" SpO2: 94% Weight: 189 lbs 03/06/2017 Blood Pressure 1: 140/86 Code: 8480-6 BMI: 32.9 Code: 83897-7 Heart Rate 1: 68 bpm Height: 5'3" SpO2: 98% Weight: 186 lbs 03/04/2017 Blood Pressure 1: 136/82 Code: 8480-6 Heart Rate 1: 61 bpm Height: 5'3" SpO2: 97% Temperature: 36.6 (C ) / 97.8 (F) Weight: 11/04/2016 Blood Pressure 1: 146/76 Code: 8480-6 BMI: 34.7 Code: 07814-9 Heart Rate 1: 70 bpm Height: 5'3" SpO2: 97% Waist Measure (cm): 107 cm Weight: 196 lbs 10/23/2016 Blood Pressure 1: 148/78 Code: 8480-6 BMI: 34.7 Code: 91595-4 Heart Rate 1: 68 bpm Height: 5'3" SpO2: 97% Weight: 196 lbs 10/03/2016 Blood Pressure 1: 142/78 Code: 8480-6 BMI: 34.7 Code: 80307-4 Heart Rate 1: 72 bpm Height: 5'3" SpO2: 98% Weight: 196 lbs 09/03/2016 Blood Pressure 1: 128/88 Code: 8480-6 Heart Rate 1: 86 bpm SpO2: 96% 08/21/2016 Blood Pressure 1: 128/62 Code: 8480-6 BMI: 35.1 Code: 69771-5 Heart Rate 1: 80 bpm Height: 5'3" SpO2: 98% Weight: 198 lbs 07/24/2016 Blood Pressure 1: 150/86 Code: 8480-6 BMI: 34.4 Code: 13389-6 Heart Rate 1: 72 bpm Height: 5'3" SpO2: 97% Weight: 194 lbs 04/24/2016 Blood Pressure 1: 138/76 Code: 8480-6 BMI: 34.2 Code: 27230-1 Heart Rate 1: 71 bpm Height: 5'3" SpO2: 98% Weight: 193 lbs 01/18/2016 Blood Pressure 1: 140/72 Code: 8480-6 BMI: 33.4 Code: 58613-7 Heart Rate 1: 69 bpm Height: 5'3" SpO2: 98% Weight: 188 lbs 8 oz 12/21/2015 Blood Pressure 1: 158/78 Code: 8480-6 BMI: 33.3 Code: 43444-2 Heart Rate 1: 66 bpm Height: 5'3" SpO2: 98% Weight: 188 lbs 08/17/2015 Blood Pressure 1: 132/76 Code: 8480-6 BMI: 30.5 Code: 83698-2 Heart Rate 1: 66 bpm Height: 5'3" Respiratory Rate: 18 bpm SpO2: 97% Weight: 172 lbs 06/23/2015 Blood Pressure 1: 160/80 Code: 8480-6 Blood Pressure 2: 170/86 Code: 8480-6 BMI: 28.3 Code: 52164-6 Heart Rate 1: 96 bpm Height: 5'3" SpO2: 98% Temperature: 37.3 (C ) / 99.1 (F) Weight: 160 lbs 06/21/2015 Blood Pressure 1: 132/78 Code: 8480-6 Heart Rate 1: 106 bpm SpO2: 98% Temperature: 37.3 (C ) / 99.2 (F) Weight: 166 lbs 03/28/2015 Blood Pressure 1: 160/84 Code: 8480-6 Blood Pressure 2: 138/78 Code: 8480-6 BMI: 32.1 Code: 45084-0 Heart Rate 1: 86 bpm Height: 5'3" SpO2: 97% Weight: 181 lbs 07/07/2014 Blood Pressure 1: 138/82 Code: 8480-6 BMI: 32.6 Code: 42867-4 Heart Rate 1: 82 bpm Height: 5'3" SpO2: 96% Weight: 184 lbs 03/24/2014 Blood Pressure 1: 138/64 Code: 8480-6 BMI: 32.4 Code: 35560-5 Heart Rate 1: 72 bpm Height: 5'3" Weight: 183 lbs 01/20/2014 Blood Pressure 1: 149/69 Code: 8480-6 Blood Pressure 2: 170/82 Code: 8480-6 Heart Rate 1: 81 bpm Weight: 183 lbs 12/20/2013 Blood Pressure 1: 150/78 Code: 8480-6 BMI: 32.6 Code: 68512-6 Heart Rate 1: 76 bpm Height: 5'3" Weight: 184 lbs 10/25/2013 Blood Pressure 1: 167/80 Code: 8480-6 BMI: 33.3 Code: 48142-8 Heart Rate 1: 60 bpm Height: 5'3" Weight: 188 lbs 10/19/2013 Blood Pressure 1: 136/78 Code: 8480-6 BMI: 33.1 Code: 79091-3 Height: 5'3" Weight: 187 lbs 05/25/2013 Blood Pressure 1: 134/82 Code: 8480-6 BMI: 33.5 Code: 85181-4 Heart Rate 1: 80 bpm Height: 5'3" Weight: 189 lbs 02/18/2013 Blood Pressure 1: 158/88 Code: 8480-6 Blood Pressure 2: 158/90 Code: 8480-6 BMI: 33.7 Code: 76815-4 Heart Rate 1: 80 bpm Height: 5'3" Weight: 190 lbs 10/01/2012 Blood Pressure 1: 138/62 Code: 8480-6 Heart Rate 1: 76 bpm Weight: 184 lbs 05/18/2012 Blood Pressure 1: 150/82 Code: 8480-6 Blood Pressure 2: 136/84 Code: 8480-6 BMI: 32.1 Code: 56496-7 Heart Rate 1: 71 bpm Height: 5'3" SpO2: 98% Weight: 181 lbs 02/11/2012 Blood Pressure 1: 126/56 Code: 8480-6 Heart Rate 1: 68 bpm Respiratory Rate: 16 bpm Weight: 184 lbs 01/14/2012 Blood Pressure 1: 158/80 Code: 8480-6 BMI: 33.9 Code: 59215-5 Heart Rate 1: 60 bpm Height: 5'3" [...] readings at home 02/11/2012 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 P ATIENT, LEVEL IV Diagnosis: Type 2 diabetes mellitus with diabetic polyneuropathy[ICD10: E11.42] Diagnosis: Pain in left leg[ICD10: M79.605] Diagnosis: Pain in right leg[ICD10: M79.604] [facility] CPT-4: 81767 08/27/2018 ([id number]) Miscellaneou s no charge Diagnosis: Other fatigue[ICD10: R53.83] Carmelina Ott MD, [facility] CPT-4: 72673 06/17/2018 ([id number]) 76611 EST. P ATIENT, LEVEL IV Diagnosis: Essential (primary) hypertension[ICD10: I10] Diagnosis: Hypothyroidism, unspecified[ICD10: E03.9] Diagnosis: Type 2 diabetes mellitus without complications[ICD10: E11.9] Diagnosis: Chronic pain syndrome[ICD10: G89.4] Diagnosis: Vitamin B12 deficiency anemia, unspecified[ICD10: D51.9] Diagnosis: Unsteadiness on feet[ICD10: R26.81] Nicki Ott MD, [facility] CPT-4: 65555 02/24/2018 ([id number]) 99648 EST. P ATIENT, LEVEL IV Diagnosis: Type 2 diabetes mellitus without complications[ICD10: E11.9] Diagnosis: Hypothyroidism, unspecified[ICD10: E03.9] Diagnosis: Essential (primary) hypertension[ICD10: I10] Diagnosis: Pain in left shoulder[ICD10: M25.512] Nicki Ott MD, [facility] CPT-4: 98170 11/03/2017 ([id number]) 01382 EST. P ATIENT, LEVEL III Diagnosis: Essential (primary) hypertension[ICD10: I10] Diagnosis: Major depressive disorder, recurrent, mild[ICD10: F33.0] Diagnosis: Other allergic rhinitis[ICD10: J30.89] Nicki Ott MD, [facility] CPT-4: 84556 08/08/2017 ([id number]) 60890 EST. P ATIENT, LEVEL IV Diagnosis: Hypothyroidism, unspecified[ICD10: E03.9] Diagnosis: Major depressive disorder, recurrent, mild[ICD10: F33.0] Diagnosis: Myalgia[ICD10: M79.1] Diagnosis: Chronic pain syndrome[ICD10: G89.4] Diagnosis: Essential (primary) hypertension[ICD10: I10] Nicki Ott MD, [facility] CPT-4: 03916 07/10/2017 ([id number]) 64887 EST. P ATIENT, LEVEL IV Diagnosis: Essential (primary) hypertension[ICD10: I10] Diagnosis: Atrophy of thyroid (acquired)[ICD10: E03.4] Diagnosis: Sacroiliitis, not elsewhere classified[ICD10: M46.1] Diagnosis: Mixed hyperlipidemia[ICD10: E78.2] Carmelina Ott MD, [facility] CPT- 4: 09670 03/06/2017 ([id number]) 42730 EST. P ATIENT, LEVEL II Diagnosis: Rash and other nonspecific skin eruption[ICD10: R21] Nicki Ott MD, [facility] CPT-4: 04315 03/04/2017 ([id number]) 38290 EST. P ATIENT, LEVEL IV Diagnosis: Type 2 diabetes mellitus without complications[ICD10: E11.9] Diagnosis: Essential (primary) hypertension[ICD10: I10] Diagnosis: Atrophy of thyroid (acquired)[ICD10: E03.4] Carmelina Ott MD, [facility] CPT-4: 10649 10/23/2016 75925 EST. PATIENT, LEVEL III Diagnosis: Other specified hypothyroidism[ICD10: E03.8] Diagnosis: Other specified anemias[ICD10: D64.89] Diagnosis: Pain in thoracic spine[ICD10: M54.6] Luz Ott MD, [facility] CPT- 4: 56261 10/03/2016 20704 EST. PATIENT, LEVEL II Diagnosis: Insect bite (nonvenomous) of other part of head, initial encounter[ICD10: S00.86XA] Nicki Ott MD, [facility] CPT-4: 32075 09/03/2016 ([id number]) 17174 EST. P ATIENT, LEVEL IV Diagnosis: Type 2 diabetes mellitus without complications[ICD10: E11.9] Diagnosis: Hypothyroidism, unspecified[ICD10: E03.9] Diagnosis: Essential (primary) hypertension[ICD10: I10] [facility] CPT-4: 66038 08/21/2016 ([id number]) 39218 EST. P ATIENT, LEVEL IV Diagnosis: Essential (primary) hypertension[ICD10: I10] Diagnosis: Supraventricular tachycardia[ICD10: I47.1] Diagnosis: Other fatigue[ICD10: R53.83] Carmelina Ott MD, [facility] CPT-4: 08155 07/24/2016 ([id number]) 74450 EST. P ATIENT, LEVEL IV Diagnosis: Type 2 diabetes mellitus without complications[ICD10: E11.9] Diagnosis: Essential (primary) hypertension[ICD10: I10] Diagnosis: Hypothyroidism, unspecified[ICD10: E03.9] [facility] CPT-4: 07460 04/24/2016 ([id number]) 93056 EST. P ATIENT, LEVEL IV Diagnosis: Type 2 diabetes mellitus without complications[ICD10: E11.9] Diagnosis: Type 2 diabetes mellitus with diabetic polyneuropathy[ICD10: E11.42] Carmelina Ott MD, [facility] CPT-4: 84188 01/18/2016 ([id number]) 70026 EST. P ATIENT, LEVEL IV Diagnosis: Urticaria, unspecified[ICD10: L50.9] Diagnosis: Dermatographic urticaria[ICD10: L50.3] Diagnosis: Hypothyroidism, unspecified[ICD10: E03.9] Diagnosis: Type 2 diabetes mellitus without complications[ICD10: E11.9] Diagnosis: Mixed hyperlipidemia[ICD10: E78.2] Diagnosis: Myalgia[ICD10: M79.1] Diagnosis: Essential (primary) hypertension[ICD10: I10] Carmelina Ott MD, [facility] CPT-4: 70664 12/21/2015 ([id number]) 36161 EST. P ATIENT, LEVEL IV Diagnosis: Hypothyroidism, unspecified[ICD10: E03.9] Diagnosis: Essential (primary) hypertension[ICD10: I10] Diagnosis: Urticaria, unspecified[ICD10: L50.9] Carmelina Ott MD, [facility] CPT-4: 00809 08/17/2015 ([id number]) Miscellaneou s no charge Diagnosis: ESSENTIAL HYPERTENSION[ICD9: 401.9] Diagnosis: Elevated temperature[ICD9: 780.60] Diagnosis: EDEMA[ICD9: 782.3] Katja Ott MD, [facility] CPT-4: 86989 06/23/2015 ([id number]) 28020 EST. P ATIENT, LEVEL IV Diagnosis: ESSENTIAL HYPERTENSION[ICD9: 401.9] Diagnosis: TACHYCARDIA[ICD9: 785.0] Diagnosis: Dyspnea[ICD9: 786.09] Katja Ott MD, [facility] CPT-4: 26880 06/21/2015 ([id number]) 44480 EST. P ATIENT, LEVEL III Diagnosis: Sacroiliitis[ICD9: 720.2] Diagnosis: LUMBAGO[ICD9: 724.2] Nicki Ott MD, [facility] CPT-4: 54528 03/28/2015 ([id number]) 62653 EST. P ATIENT, LEVEL IV Diagnosis: HYPOTHYROIDISM[ICD9: 244.9] Diagnosis: ESSENTIAL HYPERTENSION[ICD9: 401.9] Diagnosis: DIABETES TYPE II[ICD9: 250.00] Diagnosis: HYPERLIPIDEMIA[ICD9: 272.4] Diagnosis: Muscle ache[ICD9: 729.1] Carmelian Ott MD, [facility] CPT-4: 06007 07/07/2014 ([id number]) 41804 EST. P ATIENT, LEVEL IV Diagnosis: DIABETES TYPE II[SNOMED: 555724610] Diagnosis: ESSENTIAL HYPERTENSION[SNOMED: 31845569] Diagnosis: HYPOTHYROIDISM[ICD9: 244.9] Carmelina Ott MD, [facility] CPT-4: 29873 03/24/2014 ([id number]) 57214 EST. P ATIENT, LEVEL III Diagnosis: DIABETES TYPE II[SNOMED: 548073834] Diagnosis: ESSENTIAL HYPERTENSION[SNOMED: 79733085] [facility] CPT-4: 97656 01/20/2014 ([id number]) 50176 EST. P ATIENT, LEVEL IV Diagnosis: DIABETES TYPE II[SNOMED: 815382801] Diagnosis: ESSENTIAL HYPERTENSION[SNOMED: 21945814] Diagnosis: Peripheral neuropathy, idiopathic[ICD9: 356.9] [facility] CPT-4: 56775 12/20/2013 ([id number]) 11071 EST. P ATIENT, LEVEL IV Diagnosis: DIABETES TYPE II[SNOMED: 904438425] Diagnosis: ESSENTIAL HYPERTENSION[SNOMED: 06288729] Diagnosis: Dietary counseling and surveillance[ICD9: V65.3] [facility] CPT-4: 22432 10/25/2013 ([id number]) 13616 EST. P ATIENT, LEVEL IV Diagnosis: DIABETES TYPE II[SNOMED: 977395390] Diagnosis: ESSENTIAL HYPERTENSION[SNOMED: 56345069] Diagnosis: HYPOTHYROIDISM[ICD9: 244.9] Carmelina Ott MD [facility] CPT-4: 05514 10/19/2013 ([id number]) 91893 EST. P ATIENT, LEVEL IV Diagnosis: ESSENTIAL HYPERTENSION[SNOMED: 13541764] Diagnosis: DIABETES TYPE II[SNOMED: 927860760] Diagnosis: HYPOTHYROIDISM[ICD9: 244.9] Carmelina Ott MD [facility] CPT-4: 36144 05/25/2013 ([id number]) 24792 EST. P ATIENT, LEVEL IV Diagnosis: DIABETES TYPE II[SNOMED: 648691300] Diagnosis: ESSENTIAL HYPERTENSION[SNOMED: 51900495] Diagnosis: HYPOTHYROIDISM[ICD9: 244.9] Carmelina Ott MD [facility] CPT-4: 93467 02/18/2013 ([id number]) 11769 EST. P ATIENT, LEVEL III Diagnosis: ESSENTIAL HYPERTENSION[SNOMED: 30886033] Carmelina Ott MD, [facility] CPT-4: 83862 10/01/2012 ([id number]) 24277 EST. P ATIENT, LEVEL IV Diagnosis: DIABETES TYPE II[SNOMED: 266820976] Diagnosis: ESSENTIAL HYPERTENSION[SNOMED: 79724262] Carmelina Ott MD, [facility] CPT-4: 63885 05/18/2012 ([id number]) 77578 EST. P ATIENT, LEVEL IV Diagnosis: DIABETES TYPE II[SNOMED: 630868050] Diagnosis: HYPOTHYROIDISM[ICD9: 244.9] Diagnosis: UTI (lower urinary tract infection)[ICD9: 599.0] Diagnosis: Vaginal yeast infection[ICD9: 112.1] Diagnosis: Rectal lump[ICD9: 787.99] Diagnosis: Abdominal bloating[ICD9: 787.3] Carmelina Ott MD, [facility] CPT-4: 27970 02/11/2012 ([id number]) 34667 EST. [facility]: ESSENTIAL HYPERTENSION[SNOMED: 84152523] Diagnosis: DIABETES TYPE II[SNOMED: 673834974] Diagnosis: HYPERLIPIDEMIA[ICD9: 272.4] Diagnosis: HYPOTHYROIDISM[ICD9: 244.9] [facility] CPT-4: 55919 01/14/2012 Plan of Care Planned Activity Notes C odes Status Date Visit Plan: Diabetes Mellitus - soraida vasquez [...] with Cymbalta. 08/27/2018 Appointment: Carmelina Ott WPtel: [address] [place], [place] [phone] (15 min) Moderate 08/27/2018 Patient Education: Patient [...] Gait instabilty-patient going to do PT at [facility] 02/24/2018 Appointment: Nicki Cabral WPtel: [facility]5 [phone] (30 min) Complex 02/24/2018 Patient Education: Patient [...] improved. 11/03/2017 Appointment: Nicki Cabral WPtel: [facility]5 [phone] (30 min) Complex 11/03/2017 Patient Education: Patient [...] spray in the nasal steroid allergy spray. Fxaculplpp-ryolpcjk-eugfxqsf cymbalta 08/08/2017 Appointment: Nicki Cabral WPtel: [facility]5 [phone] (30 min) Complex 08/08/2017 Patient Education: Patient [...] patient. 07/10/2017 Appointment: Carmelina Ott WPtel: [facility]5 [facility]676[facility] (15 min) Moderate 07/10/2017 Appointment: Nicki Cabral WPtel: [address] [place], [place] [phone] (30 min) Complex 07/10/2017 Patient Education: Patient [...] recommended pt to continue with aleve, get Weston Sheffield to use on your knee and hip [...] control. 03/06/2017 Appointment: Carmelina Ott WPtel: [facility]8 [facility] (15 min) Moderate 03/06/2017 Patient Education: Patient Medication Summary Completed 03/06/2017 Patient Education: Obesity Completed 03/06/2017 Visit Plan: Rash-very faint-will cu lture the rash today- recommend emollient such as eucerin cream or cerave-call if rash does not resolve or if any worse. Patient verbalized understanding of plan. 03/04/2017 Appointment: Nicki Cabral WPtel: [address] [place], [place] [phone] (15 min) Moderate 03/04/2017 Patient Education: Patient Medication Summary Completed 03/04/2017 Appointment: Carmelina Ott WPtel: [address] [place], [place] [phone] (15 min) Moderate 02/19/2017 Visit Plan: Medicare [...] surrogate. 11/04/2016 Appointment: Luz Latham WPtel: [phone] [facility] [facility] - Annual Wellness Visit 11/04/2016 [...] of control. 10/23/2016 Appointment: Carmelina Ott WPtel: [phone] [facility] (15 min) Moderate 10/23/2016 Patient Education: Patient [...] control. 10/03/2016 [facility]ment[phone] (30 min) Complex 10/03/2016 Patient Education: Patient Medication Summary Completed 10/03/2016 Patient Education: Obesity Completed 10/03/2016 Visit Plan: Insect bite-right cheek -kenalog injection today in the office-use benadryl cream as needed for itching. Call for s/s of infection-increase redness, warmth, induration. Patient verbalized understanding of plan. 09/03/2016 Appointment: [phone] (15 min) Moderate 09/03/2016 Patient Education: [...] of control. 08/21/2016 [facility]ment[phone] (15 min) Moderate 08/21/2016 Patient Education: [...] of control. 04/24/2016 Appointment: Carmelina Ott WPtel: [address] [place], [place] [phone] (15 min) Moderate 04/24/2016 Patient Education: Patient [...] neuropathy. 01/18/2016 Appointment: Carmelina Ott WPtel: [facility] (15 min) Moderate 01/18/2016 Patient Education: Patient [...] Lipids today. 12/21/2015 Appointment: Carmelina Ott WPtel: [phone] [facility] (15 min) Moderate 12/21/2015 Patient Education: Patient [...] 1 month 08/17/2015 Appointment: [phone] (15 min) Moderate 08/17/2015 Patient Education: [...] x 2weeks and to talk to her outcomes specialist about potential permanent decrease in her medication if the two week trial of a lower dose has helped to improve her symptoms of muscle aches and joint pain. 07/07/2014 Appointment: Carmelina Ott WPtel: [address] [place], [place] [phone] Follow up 07/07/2014 Patient Education: Patient Medication [...] of control. 03/24/2014 Appointment: Carmelina Ott WPtel: [address] [place], [place] [phone] Follow up 03/24/2014 Patient Education: Patient Medication [...] less controlled. 01/20/2014 Appointment: Carmelina Ott WPtel: [facility]5 [facility] Follow up 01/20/2014 Patient Education: Patient Medication Summary Completed 01/20/2014 Patient Education: Hypertension Completed 01/20/2014 Appointment: Carmelina Ott WPtel: [address] [place], [place] [phone] Follow up 01/17/2014 Visit Plan: Diabetes Mellitus [...] control. 12/20/2013 Appointment: Carmelina Ott WPtel: [phone] [facility] Other 12/20/2013 Patient Education: Patient Medication Summary [...] 1 WEEK 10/25/2013 Appointment: [phone] Diabetic education 10/25/2013 Patient Education: Patient [...] control. 10/19/2013 Appointment: Carmelina Ott WPtel: [phone] [facility] Follow up 10/19/2013 Patient Education: Patient Medication Summary Completed 10/19/2013 Patient Education: Hypertension Completed 10/19/2013 Appointment: Carmelina Ott WPtel: [facility]5 [phone] Follow up 09/23/2013 Visit Plan: Hypertension - [...] of control. 05/25/2013 Appointment: [phone] [facility] Follow up 05/25/2013 Patient Education: Patient Medication Summary Completed 05/25/2013 Patient Education: Hypertension Completed 05/25/2013 Appointment: Carmelina Ott WPtel: [phone] [phone] Follow up 05/19/2013 Visit Plan: Diabetes Mellitus [...] 3 months. 02/18/2013 Appointment: Carmelina Ott WPtel: [facility]5 [facility] Follow up 02/18/2013 Patient Education: Patient Medication [...] resolved. 10/01/2012 Appointment: Carmelina Ott WPtel: [phone] [phone] Other 10/01/2012 Patient Education: Patient Medication Summary [...] for yeast 02/11/2012 Appointment: Carmelina Ott WPtel: [facility] pt will comment on meaningful use (from [...] kegel exercises. 01/14/2012 Appointment: Carmelina Ott WPtel: [address] [place], [place] [phone] Other 01/14/2012 Patient Education: Patient Medication Summary Completed 01/14/2012 Patient Education: High Blood Pressure: Essential Hypertension Completed 01/14/2012 Referral: Andrew Madera Referral Relationship Referral: Ravi Gaston WPtel: [address] [place], [place] [id number] Referral Relationship Referral: Ella Saldana Referral Relationship [...] spray in the nasal steroid allergy spray. Skskkrrlko-lpcfzenm-grtpslqq cymbalta . Hypertension - wel l controlled [...] ick to lip Chest X-Ray at [facility] today We will write referral order for [...] ick to lip Chest X-Ray at [facility] today We will write referral order for [...] led to peripheral neuropathy. . Hypertension - wel l controlled - [...] Gait instabilty-patient going to do PT at [facility] . Rash-very faint-wi ll culture the [...] x 2weeks and to talk to her outcomes specialist about potential permanent decrease in her medication [...] x 2weeks and to talk to her outcomes specialist about potential permanent decrease in her medication [...] recommended pt to continue with aleve, get Weston Sheffield to use on your knee and hip [...] recommended pt to continue with aleve, get Weston Sheffield to use on your knee and hip [...]
--- OUTSIDE RECORDS SUMMARY | 2020-05-26 12:26 | XMS REPORT | Continuity of Care Document ---
Author Organization Unknown Address Unknown Phone Unavailable Allergies Active Description Code Type Severity Reaction Onset Reported/Identified Relationship to Patient Clinical Status Yes Penicillins [id number] Drug Aller gy Unknown N/A 08/12/2007 Yes aliskiren hemifumarate [id number] Drug Allergy Unknown N/A 05/24/2020 Yes lisinopril [id number] Drug Allerg y Unknown cough 05/24/2020 Yes Penicillins [id number] Drug Aller gy Unknown HAS RECEIVED AN 05/24/2020 Medications There is no data. 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9 HYPERTENSION NOS 01/12/2014 CLARICE RUTH MD, FACC FACP CCDS Ot 414.01 CORONARY ATHEROSCLEROSIS OF [place] CORON 01/12/2014 CLARICE RUTH MD, FACC FACP CCDS Ot 414.02 CORON ATHEROSCLEROSIS AUTOLOG VEIN BYPAS 01/12/2014 FLORY FORD FACC, ALI FACP CCDS Ot 414.2 CHRONIC TOTAL OCCLUSION OF CORONARY [place] 01/12/2014 FLORY FORD FACC, ALI FACP CCDS Ot 729.1 MYALGIA AND MYOSITIS NOS 01/12/2014 FLORY FORD FACC, ALI FACP CCDS Ot 786.50 CHEST PAIN NOS 01/12/2014 FLORY FORD FACC, ALI FACP CCDS Ot 790.29 OTHER ABNORMAL GLUCOSE 01/12/2014 FLORY FORD FACC, ALI FACP CCDS Ot V45.81 AORTOCORONARY BYPASS 01/12/2014 FLORY FORD FACC, ALI FACP CCDS Ot V58.69 OT MED,LT,CURRENT USE 01/12/2014 FLORY FORD FACC, ALI FACP CCDS Ot V85.32 BODY MASS INDEX 32.0-32.9, ADULT 05/22/2014 FLORY FORD FACC, ALI FACP CCDS Ot V45.82 PERCUTANEOUS TRANSLUM CORON ANGIOPLASTY 05/22/2014 FLORY FORD FACC, ALI FACP CCDS Ot V57.89 REHABILITATION PROC NEC 03/13/2015 FLORY FORD FACC, ALI FACP CCDS Ot 250.00 03/13/2015 FLORY FORD FACC, ALI FACP CCDS Ot 272.4 03/13/2015 FLORY FORD FACC, ALI FACP CCDS Ot 300.00 03/13/2015 FLORY FORD FACC, ALI FACP CCDS Ot 401.9 03/13/2015 FLORY FORD FACC, ALI FACP CCDS Ot 414.9 03/13/2015 FLORY FORD FACC, ALI FACP CCDS Ot 715.90 03/13/2015 FLORY FORD FACC, ALI FACP CCDS Ot 729.1 03/13/2015 FLORY FORD FACC, ALI FACP CCDS Ot 780.4 03/13/2015 FLORY FORD FACC, ALI FACP CCDS Ot 786.09 03/13/2015 FLORY FORD FACC, ALI FACP CCDS Ot 786.50 04/16/2015 FLORY FORD FACC, ALI FACP CCDS Ot 250.00 04/16/2015 FLORY RAMIREZC, ALI FACP CCDS Ot 272.4 04/16/2015 FLORY FORD FACC, ALI FACP CCDS Ot 300.00 04/16/2015 FLORY FORD FACC, ALI FACP CCDS Ot 401.9 04/16/2015 FLORY FORD FACC, ALI FACP CCDS Ot 414.9 04/16/2015 FLORY FORD FACC, ALI FACP CCDS Ot 715.90 04/16/2015 FLORY FORD FACC, ALI FACP CCDS Ot 729.1 04/16/2015 FLORY FORD FACC, ALI FACP CCDS Ot 780.4 04/16/2015 FLORY FORD FACC, ALI FACP CCDS Ot 786.09 04/16/2015 FLORY FORD FACC, ALI FACP CCDS Ot 786.50 04/30/2015 YUNI EVANS MD Ot 244 .9 HYPOTHYROIDISM NOS 04/30/2015 YUNI EVANS MD Ot 250.00 DIAB BRETT WO COMPL, TYPE II OR UNSPEC TY 04/30/2015 YUNI EVANS MD Ot 401 .9 HYPERTENSION NOS 04/30/2015 YUNI EVANS MD Ot 724 .2 LUMBAGO 04/30/2015 YUNI EVANS MD Ot 724 .3 SCIATICA 04/30/2015 YUNI EVANS MD Ot 729 .1 MYALGIA AND MYOSITIS NOS 05/10/2015 MATILDE LAINEZ DO Ot 722.10 05/12/2015 MATILDE LAINEZ DO Ot 722.10 05/13/2015 FLORY RAMIREZC, ALI FACP CCDS Ot 250.00 05/13/2015 FLORY RAMIREZC, ALI FACP CCDS Ot 272.4 05/13/2015 FLORY RAMIREZC, ALI FACP CCDS Ot 300.00 05/13/2015 FLORY FORD FACC, ALI FACP CCDS Ot 401.9 05/13/2015 FLORY FORD FACC, ALI FACP CCDS Ot 414.9 05/13/2015 FLORY RAMIREZC, ALI FACP CCDS Ot 715.90 05/13/2015 FLORY FORD FACC, ALI FACP CCDS Ot 729.1 05/13/2015 FLORY RAMIREZC, ALI FACP CCDS Ot 780.4 05/13/2015 FLORY RAMIREZC, ALI FACP CCDS Ot 786.09 05/13/2015 FLORY RAMIREZC, ALI FACP CCDS Ot 786.50 05/17/2015 MATILDE LAINEZ DO Ot 724.00 05/17/2015 MATILDE LAINEZ DO Ot V72.63 05/17/2015 MATILDE LAINEZ DO Ot V72.81 05/17/2015 MATILDE LAINEZ DO Ot V74 .8 05/29/2015 Ot V45.82 05/29/2015 Ot V57.89 05/29/2015 Ot V45.82 05/29/2015 Ot V57.89 06/02/2015 MATILDE LAINEZ DO Ot 250.00 DIAB BRETT WO COMPL, TYPE II OR UNSPEC TY 06/02/2015 FATOU JOHNSON MATILDE Jolley Ot 311 DEPRESSIVE DISORDER NEC 06/02/2015 MATILDE LAINEZ DO Ot 724.03 SPINAL STENOSIS, LUMBAR REGION, W NEUROG 06/02/2015 FATOU JOHNSON MATILDE Jolley Ot 724 .4 LUMBOSACRAL NEURITIS NOS 06/02/2015 FATOU JOHNSON MATILDE Jolley Ot 733.00 OSTEOPOROSIS NOS 06/02/2015 MATILDE LAINEZ DO Ot V45.81 AORTOCORONARY BYPASS 06/02/2015 FATOU JOHNSON MATILDE Jolley Ot V45.82 PERCUTANEOUS TRANSLUM CORON ANGIOPLASTY 06/07/2015 ILIA FORD, CHEY E Ot 244.9 HYPOTHYROIDISM NOS 06/07/2015 ILIA FORD, CHEY E Ot 250.0 0 DIAB BRETT WO COMPL, TYPE II OR UNSPEC TY 06/07/2015 ILIA FORD, CHEY E Ot 311 DEPRESSIVE DISORDER NEC 06/07/2015 ILIA FORD, CHEY E Ot 365.9 GLAUCOMA NOS 06/07/2015 ILIA FORD, CHEY E Ot 401.9 HYPERTENSION NOS 06/07/2015 ILIA FORD, CHEY E Ot 414.0 0 CORON ATHEROSCLER NOS TYPE VESSEL, NATIV 06/07/2015 ILIA FORD, CHEY E Ot 729.1 MYALGIA AND MYOSITIS NOS 06/07/2015 ILIA FORD, CHEY E Ot V45.4 ARTHRODESIS STATUS 06/07/2015 ILIA FORD, CHEY E Ot V45.8 1 AORTOCORONARY BYPASS 06/07/2015 ILIA FORD CHEY E Ot V57.8 9 REHABILITATION PROC NEC 06/07/2015 ILIA FORD, CHEY E Ot V58.7 8 AFTERCARE POST SURGERY MUSCULOSKELETAL S 06/07/2015 FATOU DO MATILDE Shola Ot 724.00 06/07/2015 MATILDE LAINEZ DO Ot V72.63 06/07/2015 MATILDE LAINEZ DO Ot V72.81 06/07/2015 MATILDE LAINEZ DO Ot V74 .8 06/15/2015 MATILDE LAINEZ DO Ot 724.00 06/15/2015 MATILDE LAINEZ DO Ot V72.63 06/15/2015 MATILDE LAINEZ DO Ot V72.81 06/15/2015 MATILDE LAINEZ DO Ot V74 .8 07/14/2015 JOVANA GOODMAN RESEARCH ASSISTANT MEMBER Ot 785.0 07/14/2015 JOVANA GOODAMN RESEARCH ASSISTANT MEMBER Ot 786.05 07/17/2015 JOVANA GOODMAN RESEARCH ASSISTANT MEMBER Ot 780.60 07/17/2015 JOVANA GOOMDAN RESEARCH ASSISTANT MEMBER Ot 780.79 07/17/2015 JOVANA GOODMAN RESEARCH ASSISTANT MEMBER Ot V45.89 07/20/2015 JOVANA GOODMAN RESEARCH ASSISTANT MEMBER Ot 785.0 07/20/2015 JOVANA GOODMAN RESEARCH ASSISTANT MEMBER Ot 786.05 08/16/2015 TOM FORD, RADHA Menjivar Ot 285.9 02/08/2016 Ot V45.82 02/08/2016 Ot V57.89 02/08/2016 Ot 250.00 02/08/2016 Ot 729.1 02/08/2016 Ot V49.81 02/08/2016 Ot V76.12 02/08/2016 Ot V82.81 02/08/2016 Ot 285.9 02/08/2016 Ot 625.8 02/08/2016 Ot 627.1 02/08/2016 Ot V72.63 02/08/2016 Ot V72.81 02/08/2016 Ot V74.8 02/08/2016 Ot 787.3 02/08/2016 Ot 789.00 02/08/2016 Ot 793.82 02/08/2016 Ot V76.12 02/08/2016 Ot 611.72 02/08/2016 Ot 610.0 02/08/2016 Ot 610.8 02/08/2016 Ot V58.69 02/08/2016 Ot V58.83 02/08/2016 Ot 272.4 02/08/2016 Ot V58.69 02/08/2016 Ot V72.84 02/08/2016 Ot 578.1 02/08/2016 Ot V45.81 02/08/2016 Ot V58.63 02/08/2016 Ot V58.66 02/08/2016 Ot V58.69 02/08/2016 Ot 715.35 02/08/2016 Ot 719.45 02/08/2016 Ot 414.00 02/08/2016 Ot 786.59 02/08/2016 Ot V45.81 02/08/2016 MATILDE LAINEZ DO Ot 724.02 02/08/2016 TOM FORD, RADHA Menjivar Ot 610.0 02/08/2016 ROBERSAMEER Marta [place] DR[place] Ot 729.81 02/08/2016 MIHIRKACY SAMEER L [place] DRIVER Ot 924.9 02/08/2016 BAIKACY SAMEER L [place] DRIVER Ot E928.9 02/08/2016 Ot V45.82 02/08/2016 Ot V57.89 02/08/2016 FLORY FORD FACC, ALI FACP CCDS Ot 250.00 02/08/2016 FLORY FORD FACC, ALI FACP CCDS Ot 272.4 02/08/2016 FLORY FORD FACC, ALI FACP CCDS Ot 300.00 02/08/2016 FLORY FORD FACC, ALI FACP CCDS Ot 401.9 02/08/2016 FLORY FORD FACC, ALI FACP CCDS Ot 414.9 02/08/2016 FOLRY FORD FACC, ALI FACP CCDS Ot 715.90 02/08/2016 FLORY FORD FACC, ALI FACP CCDS Ot 729.1 02/08/2016 FLORY FORD FACC, ALI FACP CCDS Ot 780.4 02/08/2016 FLORY FORD FACC, ALI FACP CCDS Ot 786.09 02/08/2016 FLORY FORD FACC, ALI FACP CCDS Ot 786.50 02/08/2016 MATILDE LAINEZ DO Ot 722.10 02/08/2016 MATILDE LAINEZ DO Ot 724.00 02/08/2016 MATILDE LAINEZ DO Ot V72.63 02/08/2016 MATILDE LAINEZ DO Ot V72.81 02/08/2016 MATILDE LAINEZ DO Ot V74 .8 02/08/2016 JOVANA GOODMAN APRN Ot 785.0 02/08/2016 JOVANA GOODMAN RESEARCH ASSISTANT MEMBER Ot 786.05 02/08/2016 JOVANA GOODMAN RESEARCH ASSISTANT MEMBER Ot 780.60 02/08/2016 JOVANA GOODMAN RESEARCH ASSISTANT MEMBER Ot 780.79 02/08/2016 JOVANA GOODMAN RESEARCH ASSISTANT MEMBER Ot V45.89 02/08/2016 TOM FORD, RADHA Menjivar Ot 285.9 02/09/2016 BAIMA SAMEER L [place] DRIVER Ot I73.9 02/22/2016 BAIMA, SAMEER L [place] DRIVER Ot I73.9 02/23/2016 BAIMA, SAMEER L [place] DRIVER Ot I73.9 02/28/2016 BAIMA, SAMEER L [place] DRIVER Ot I73.9 03/06/2016 BAIMA, SAMEER L [place] DRIVER Ot I73.9 PERIPHERAL VASCULAR DISEASE, UNSPECIFIED 03/13/2016 BAIMA, SAMEER L [place] DRIVER Ot I73.9 PERIPHERAL VASCULAR DISEASE, UNSPECIFIED 03/21/2016 BAIMA, SAMEER L [place] DRIVER Ot I73.9 PERIPHERAL VASCULAR DISEASE, UNSPECIFIED 07/09/2016 NATHANIEL GRACE [place] DRIVER Ot Z12.31 ENCNTR SCREEN MAMMOGRAM FOR MALIGNANT NE 07/10/2016 NATHANIEL GRACE [place] DRIVER Ot Z12.31 ENCNTR SCREEN MAMMOGRAM FOR MALIGNANT NE 07/10/2016 NATHANIEL GRACE [place] DRIVER Ot Z12.31 ENCNTR SCREEN MAMMOGRAM FOR MALIGNANT NE 07/17/2016 Ot 285.9 ANEM IA NOS 07/17/2016 Ot 625.8 FEM GENITAL SYMPTOMS NEC 07/17/2016 Ot 627.1 POST MENOPAUSAL BLEEDING 07/17/2016 Ot V72.63 PRE -PROCEDURAL LABORATORY EXAMINATION 07/17/2016 Ot V72.81 BFIO-MPR-NFRXXMBEX CARDIOVASCULAR 07/17/2016 Ot V74.8 SCRE EN-BACTERIAL DIS NEC 07/17/2016 Ot 787.3 FLAT UL/ERUCTAT/GAS PAIN 07/17/2016 Ot 789.00 ABD OMINAL PAIN, UNSPECIFIED SITE 07/17/2016 Ot 793.82 INC ONCLUSIVE MAMMOGRAM 07/17/2016 Ot V76.12 OTH SCREEN MAMMO- MALIGN NEOPLASM OF [place] 07/17/2016 Ot 611.72 LUM P OR MASS IN BREAST 07/17/2016 Ot 610.0 ANA TARY CYST OF BREAST 07/17/2016 Ot 610.8 [place] GN MAMM DYSPLAS NEC 07/17/2016 Ot V58.69 OTH MED,LT,CURRENT USE 07/17/2016 Ot V58.83 ENC OUNTER FOR THERAPEUTIC DRUG MONITORIN 07/17/2016 Ot 272.4 HYPE RLIPIDEMIA NEC/NOS 07/17/2016 Ot V58.69 OTH MED,LT,CURRENT USE 07/17/2016 Ot V72.84 EXA M PRE- OPERATIVE NOS 07/17/2016 Ot 578.1 BLOO D IN STOOL 07/17/2016 Ot V45.81 AOR TOCORONARY BYPASS 07/17/2016 Ot V58.63 VANESSA G- TERM(CURRENT)USE OF ANTIPLATELET/AN 07/17/2016 Ot V58.66 VANESSA G-TERM (CURRENT) USE OF ASPIRIN 07/17/2016 Ot V58.69 OTH MED,LT,CURRENT USE 07/17/2016 Ot 715.35 LOC OSTEOARTH NOS-PELVIS 07/17/2016 Ot 719.45 KAREN NT PAIN-PELVIS 07/17/2016 Ot 414.00 COR ON ATHEROSCLER NOS TYPE VESSEL, NATIV 07/17/[address] PAIN NEC 07/17/2016 Ot V45.81 AOR TOCORONARY BYPASS 07/17/2016 MATILDE LAINEZ DO Ot 724.02 SPINAL STENOSIS, LUMBAR REG, W/OUT NEURO 07/17/2016 TOM FORD, RADHA Menjivar Ot 610.0 SOLITARY CYST OF BREAST 07/17/2016 SAMEER RICHTER [place] Ot 729.81 SWELLING OF LIMB 07/17/2016 SAMEER RICHTER [place] DRIVER Ot 924.9 CONTUSION NOS 07/17/2016 SAMEER RICHTER [place] DRIVER Ot E928.9 ACCIDENT NOS 07/17/2016 Ot V45.82 PER CUTANEOUS TRANSLUM CORON ANGIOPLASTY 07/17/2016 Ot V57.89 CINDY ABILITATION PROC NEC 07/17/2016 FLORY FORD FACC, ALI FACP CCDS Ot 250.00 DIAB BRETT WO COMPL, TYPE II OR UNSPEC TY 07/17/2016 FLORY FORD FACC, ALI FACP CCDS Ot 272.4 HYPERLIPIDEMIA NEC/NOS 07/17/2016 FLORY FORD FACC, ALI FACP CCDS Ot 300.00 ANXIETY STATE NOS 07/17/2016 FLORY FORD FACC, ALI FACP CCDS Ot 401.9 HYPERTENSION NOS 07/17/2016 FLORY FORD FACC, CLARICE FACP CCDS Ot 414.9 CHR ISCHEMIC HRT DIS NOS 07/17/2016 FLORY FORD FACC, CLARICE FACP CCDS Ot 715.90 OSTEOARTHROS NOS-UNSPEC 07/17/2016 FLORY FORD FACC, ALI FACP CCDS Ot 729.1 MYALGIA AND MYOSITIS NOS 07/17/2016 FLORY FORD FACC, CLARICE FACP CCDS Ot 780.4 DIZZINESS AND GIDDINESS 07/17/2016 FLORY FORD FACC, CLARICE FACP CCDS Ot 786.09 RESPIRATORY ABNORM NEC 07/17/2016 FLORY FORD FACC, CLARICE FACP CCDS Ot 786.50 CHEST PAIN NOS 07/17/2016 MATILDE LAINEZ DO Ot 722.10 LUMBAR DISC DISPLACEMENT 07/17/2016 MATILDE LAINEZ DO Ot 724.00 SPINAL STENOSIS NOS 07/17/2016 MATILDE LAINEZ DO Ot V72.63 PRE-PROCEDURAL LABORATORY EXAMINATION 07/17/2016 MATILDE LAINEZ DO Ot V72.81 [id number] CARDIOVASCULAR 07/17/2016 MATILDE LAINEZ DO Ot V74 .8 SCREEN-BACTERIAL DIS NEC 07/17/2016 JOVANA GOODMAN RESEARCH ASSISTANT MEMBER Ot 785.0 TACHYCARDIA NOS 07/17/2016 JOVANA GOODMAN RESEARCH ASSISTANT MEMBER Ot 786.05 SHORTNESS OF BREATH 07/17/2016 JOVANA GOODMAN RESEARCH ASSISTANT MEMBER Ot 780.60 FEVER, UNSPECIFIED 07/17/2016 JOVANA GOODMAN RESEARCH ASSISTANT MEMBER Ot 780.79 OTH MALAISE FATIGUE 07/17/2016 JOVANA GOODMAN RESEARCH ASSISTANT MEMBER Ot V45.89 POSTSURGICAL STATES NEC 07/17/2016 TOM FORD, RADHA Menjivar Ot 285.9 ANEMIA NOS 07/17/2016 SAMEER RICHTER [place] Ot I73.9 PERIPHERAL VASCULAR DISEASE, UNSPECIFIED 07/17/2016 SAMEER RICHTER [place] DRIVER Ot I73.9 PERIPHERAL VASCULAR DISEASE, UNSPECIFIED 07/17/2016 NATHANIEL GRACE Ot Z12.31 ENCNTR SCREEN MAMMOGRAM FOR MALIGNANT NE 08/02/2016 NATHANIEL GRACE [place] DR[place] Ot Z12.31 ENCNTR SCREEN MAMMOGRAM FOR MALIGNANT NE 09/04/2016 FLORY MD FACC, ALI FACP CCDS Ot E66.09 OTHER OBESITY DUE TO EXCESS CALORIES 09/04/2016 FLORY FORD FACC, ALI FACP CCDS Ot E78.4 OTHER HYPERLIPIDEMIA 09/04/2016 FLORY FORD FACC, ALI FACP CCDS Ot G47.30 SLEEP APNEA, UNSPECIFIED 09/04/2016 FLORY FORD FACC, ALI FACP CCDS Ot I10 ESSENTIAL (PRIMARY) HYPERTENSION 09/04/2016 FLORY FORD FACC, ALI FACP CCDS Ot I25.10 ATHSCL HEART DISEASE OF [place] CORONARY 09/04/2016 FLORY FORD FACC, ALI FACP CCDS Ot I65.23 OCCLUSION AND STENOSIS OF [place]AL [place] 09/04/2016 FLORY FORD FACC, ALI FACP CCDS Ot R06.02 SHORTNESS OF BREATH 09/05/2016 FLORY FORD FACC, ALI FACP CCDS Ot E66.09 OTHER OBESITY DUE TO EXCESS CALORIES 09/05/2016 FLORY FORD FACC, ALI FACP CCDS Ot E78.4 OTHER HYPERLIPIDEMIA 09/05/2016 FLORY FORD FAC, ALI FACP CCDS Ot I10 ESSENTIAL (PRIMARY) HYPERTENSION 09/05/2016 FLORY FORD FAC, ALI FACP CCDS Ot I25.10 ATHSCL HEART DISEASE OF [place] CORONARY 09/05/2016 FLORY FORD FAC, ALI FACP CCDS Ot I65.23 OCCLUSION AND STENOSIS OF [place]AL [place] 09/05/2016 FLORY FORD FAC, ALI FACP CCDS Ot R06.02 SHORTNESS OF BREATH 09/20/2016 Ot 285.9 ANEM IA NOS 09/20/2016 Ot 625.8 FEM GENITAL SYMPTOMS NEC 09/20/2016 Ot 627.1 POST MENOPAUSAL BLEEDING 09/20/2016 Ot V72.63 PRE -PROCEDURAL LABORATORY EXAMINATION 09/20/2016 Ot V72.81 [id number]-[id number]-ECALSFTWP CARDIOVASCULAR 09/20/2016 Ot V74.8 SCRE EN-BACTERIAL DIS NEC 09/20/2016 Ot 787.3 FLAT UL/ERUCTAT/GAS PAIN 09/20/2016 Ot 789.00 ABD OMINAL PAIN, UNSPECIFIED SITE 09/20/2016 Ot 793.82 INC ONCLUSIVE MAMMOGRAM 09/20/2016 Ot V76.12 OTH SCREEN MAMMO- MALIGN NEOPLASM OF [place] 09/20/2016 Ot 611.72 LUM P OR MASS IN BREAST 09/20/2016 Ot 610.0 ANA TARY CYST OF BREAST 09/20/2016 Ot 610.8 CHNA[place]RI[place] GN MAMM DYSPLAS NEC 09/20/2016 Ot V58.69 OTH MED,LT,CURRENT USE 09/20/2016 Ot V58.83 ENC OUNTER FOR THERAPEUTIC DRUG MONITORIN 09/20/2016 Ot 272.4 HYPE RLIPIDEMIA NEC/NOS 09/20/2016 Ot V58.69 OTH MED,LT,CURRENT USE 09/20/2016 Ot V72.84 EXA M PRE- OPERATIVE NOS 09/20/2016 Ot 578.1 BLOO D IN STOOL 09/20/2016 Ot V45.81 AOR TOCORONARY BYPASS 09/20/2016 Ot V58.63 VANESSA G- TERM(CURRENT)USE OF ANTIPLATELET/AN 09/20/2016 Ot V58.66 VANESSA G-TERM (CURRENT) USE OF ASPIRIN 09/20/2016 Ot V58.69 OTH MED,LT,CURRENT USE 09/20/2016 Ot 715.35 LOC OSTEOARTH NOS-PELVIS 09/20/2016 Ot 719.45 KAREN NT PAIN-PELVIS 09/20/2016 Ot 414.00 COR ON ATHEROSCLER NOS TYPE VESSEL, NATIV 09/20/[address] PAIN NEC 09/20/2016 Ot V45.81 AOR TOCORONARY BYPASS 09/20/2016 MATILDE LAINEZ DO Ot 724.02 SPINAL STENOSIS, LUMBAR REG, W/OUT NEURO 09/20/2016 TOM FORD, RADHA Menjivar Ot 610.0 SOLITARY CYST OF BREAST 09/20/2016 SAMEER RICHTER [place] Ot 729.81 SWELLING OF LIMB 09/20/2016 SAMEER RICHTER [place] DRIVER Ot 924.9 CONTUSION NOS 09/20/2016 SAMEER RICHTER [place] DRIVER Ot E928.9 ACCIDENT NOS 09/20/2016 Ot V45.82 PER CUTANEOUS TRANSLUM CORON ANGIOPLASTY 09/20/2016 Ot V57.89 CINDY ABILITATION PROC NEC 09/20/2016 FLORY FORD FACDerek, ALI FACP CCDS Ot 250.00 DIAB BRETT WO COMPL, TYPE II OR UNSPEC TY 09/20/2016 FLORY FORD FACC, CLARICE FACP CCDS Ot 272.4 HYPERLIPIDEMIA NEC/NOS 09/20/2016 FLORY FORD FACC, ALI FACP CCDS Ot 300.00 ANXIETY STATE NOS 09/20/2016 FLORY FORD FACC, ALI FACP CCDS Ot 401.9 HYPERTENSION NOS 09/20/2016 FLORY FORD FACC, ALI FACP CCDS Ot 414.9 CHR ISCHEMIC HRT DIS NOS 09/20/2016 FLORY FORD FACC, ALI FACP CCDS Ot 715.90 OSTEOARTHROS NOS-UNSPEC 09/20/2016 FLORY FORD FACC, ALI FACP CCDS Ot 729.1 MYALGIA AND MYOSITIS NOS 09/20/2016 FLORY FORD FACC, ALI FACP CCDS Ot 780.4 DIZZINESS AND GIDDINESS 09/20/2016 FLORY FORD FACC, ALI FACP CCDS Ot 786.09 RESPIRATORY ABNORM NEC 09/20/2016 FLORY FORD FACC, CLARICE FACP CCDS Ot 786.50 CHEST PAIN NOS 09/20/2016 MATILDE LAINEZ DO Ot 722.10 LUMBAR DISC DISPLACEMENT 09/20/2016 MATILDE LAINEZ DO Ot 724.00 SPINAL STENOSIS NOS 09/20/2016 MATILDE LAINEZ DO Ot V72.63 PRE-PROCEDURAL LABORATORY EXAMINATION 09/20/2016 MATILDE LAINEZ DO Ot V72.81 CTNN-[id number]-ICGHPDSLD CARDIOVASCULAR 09/20/2016 MATILDE LAINEZ DO Ot V74 .8 SCREEN-BACTERIAL DIS NEC 09/20/2016 JOVANA GOODMAN RESEARCH ASSISTANT MEMBER Ot 785.0 TACHYCARDIA NOS 09/20/2016 JOVANA GOODMAN RESEARCH ASSISTANT MEMBER Ot 786.05 SHORTNESS OF BREATH 09/20/2016 JOVANA GOODMAN RESEARCH ASSISTANT MEMBER Ot 780.60 FEVER, UNSPECIFIED 09/20/2016 JOVANA GOODMAN RESEARCH ASSISTANT MEMBER Ot 780.79 OTH MALAISE FATIGUE 09/20/2016 JOVANA GOODMAN RESEARCH ASSISTANT MEMBER Ot V45.89 POSTSURGICAL STATES NEC 09/20/2016 TOM FORD, RADHA Menjivar Ot 285.9 ANEMIA NOS 09/20/2016 SAMEER RICHTER [place] DRIVER Ot I73.9 PERIPHERAL VASCULAR DISEASE, UNSPECIFIED 09/20/2016 SAMEER RICHTER [place] DRIVER Ot I73.9 PERIPHERAL VASCULAR DISEASE, UNSPECIFIED 09/20/2016 NATHANIEL GRACE [place] DRIVER Ot Z12.31 ENCNTR SCREEN MAMMOGRAM FOR MALIGNANT NE 09/20/2016 FLORY FORD FACC, CLARICE FACP CCDS Ot E66.09 OTHER OBESITY DUE TO EXCESS CALORIES 09/20/2016 FLORY FORD FACC, ALI FACP CCDS Ot E78.4 OTHER HYPERLIPIDEMIA 09/20/2016 FLORY FORD FACC, ALI FACP CCDS Ot I10 ESSENTIAL (PRIMARY) HYPERTENSION 09/20/2016 FLORY FORD FACC, ALI FACP CCDS Ot I25.10 ATHSCL HEART DISEASE OF [place] CORONARY 09/20/2016 FLORY FORD FACC, ALI FACP CCDS Ot I65.23 OCCLUSION AND STENOSIS OF BILATERAL [place] 09/20/2016 FLORY FORD FACC, ALI FACP CCDS Ot R06.02 SHORTNESS OF BREATH 09/20/2016 FLORY FORD FACC, ALI FACP CCDS Ot E66.09 OTHER OBESITY DUE TO EXCESS CALORIES 09/20/2016 FLORY FORD FACC, ALI FACP CCDS Ot E78.4 OTHER HYPERLIPIDEMIA 09/20/2016 FLORY FORD FACC, ALI FACP CCDS Ot G47.30 SLEEP APNEA, UNSPECIFIED 09/20/2016 FLORY FORD FACC, ALI FACP CCDS Ot I10 ESSENTIAL (PRIMARY) HYPERTENSION 09/20/2016 FLORY FORD FACC, ALI FACP CCDS Ot I25.10 ATHSCL HEART DISEASE OF [place] CORONARY 09/20/2016 FLORY FORD FACC, ALI FACP CCDS Ot I65.23 OCCLUSION AND STENOSIS OF BILATERAL [place] 09/20/2016 FLORY FORD FACC, ALI FACP CCDS Ot R06.02 SHORTNESS OF BREATH 09/23/2016 FIONA GARCIA DO Ot E66. 09 OTHER OBESITY DUE TO EXCESS CALORIES 09/23/2016 FIONA GARCIA DO Ot E78. 4 OTHER HYPERLIPIDEMIA 09/23/2016 FIONA GARCIA DO Ot F41. 9 ANXIETY DISORDER, UNSPECIFIED 09/23/2016 FIONA GARCIA DO Ot R06. 02 SHORTNESS OF BREATH 09/24/2016 FLORY FORD FACC, ALI FACP CCDS Ot E66.09 OTHER OBESITY DUE TO EXCESS CALORIES 09/24/2016 FLORY FORD FACC, ALI FACP CCDS Ot E78.4 OTHER HYPERLIPIDEMIA 09/24/2016 FLORY FORD FACC, ALI FACP CCDS Ot G47.30 SLEEP APNEA, UNSPECIFIED 09/24/2016 FLORY FORD FACC, ALI FACP CCDS Ot I10 ESSENTIAL (PRIMARY) HYPERTENSION 09/24/2016 FLORY FORD FACC, ALI FACP CCDS Ot I25.10 ATHSCL HEART DISEASE OF [place] CORONARY 09/24/2016 FLORY FORD FACC, ALI FACP CCDS Ot I65.23 OCCLUSION AND STENOSIS OF BILATERAL [place] 09/24/2016 FLORY FORD FACC, ALI FACP CCDS Ot R06.02 SHORTNESS OF BREATH 09/24/2016 FIONA GARCIA DO M Ot G47. 33 OBSTRUCTIVE SLEEP APNEA (ADULT) (PEDIATR 09/25/2016 RADHA DO, FIONA M Ot G47. 33 OBSTRUCTIVE SLEEP APNEA (ADULT) (PEDIATR 09/26/2016 FLORY FORD FACC, ALI FACP CCDS Ot E66.09 OTHER OBESITY DUE TO EXCESS CALORIES 09/26/2016 FLORY RAMIREZC, ALI FACP CCDS Ot E78.4 OTHER HYPERLIPIDEMIA 09/26/2016 FLORY RAMIREZC, ALI FACP CCDS Ot I10 ESSENTIAL (PRIMARY) HYPERTENSION 09/26/2016 FLORY RAMIREZC, ALI FACP CCDS Ot I25.10 ATHSCL HEART DISEASE OF [place] CORONARY 09/26/2016 FLORY RAMIREZC, ALI FACP CCDS Ot I65.23 OCCLUSION AND STENOSIS OF [place] 09/26/2016 FLORY RAMIREZC, ALI FACP CCDS Ot R06.02 SHORTNESS OF BREATH 10/02/2016 FLORY RAMIREZC, ALI FACP CCDS Ot E66.09 OTHER OBESITY DUE TO EXCESS CALORIES 10/02/2016 FLORY FORD FACC, ALI FACP CCDS Ot E78.4 OTHER HYPERLIPIDEMIA 10/02/2016 FLORY RAMIREZC, ALI FACP CCDS Ot I10 ESSENTIAL (PRIMARY) HYPERTENSION 10/02/2016 FLORY RAMIREZC, ALI FACP CCDS Ot I25.10 ATHSCL HEART DISEASE OF [place] CORONARY 10/02/2016 FLORY FORD FACC, ALI FACP CCDS Ot I65.23 OCCLUSION AND STENOSIS OF [place] 10/02/2016 FLORY FORD FACC, ALI FACP CCDS Ot R06.02 SHORTNESS OF BREATH 10/02/2016 FLORY FORD FACC, ALI FACP CCDS Ot E66.09 OTHER OBESITY DUE TO EXCESS CALORIES 10/02/2016 FLORY FORD FACC, ALI FACP CCDS Ot E78.4 OTHER HYPERLIPIDEMIA 10/02/2016 FLORY FORD FACC, CLARICE FACP CCDS Ot G47.30 SLEEP APNEA, UNSPECIFIED 10/02/2016 FLORY FORD FACC, CLARICE FACP CCDS Ot I10 ESSENTIAL (PRIMARY) HYPERTENSION 10/02/2016 FLORY FORD FACC, ALI FACP CCDS Ot I25.10 ATHSCL HEART DISEASE OF [place] CORONARY 10/02/2016 FLORY FORD FACC, CLARICE FACP CCDS Ot I65.23 OCCLUSION AND STENOSIS OF [place] 10/02/2016 FLORY FORD FACC, CLARICE FACP CCDS Ot R06.02 SHORTNESS OF BREATH 10/15/2016 FIONA GARCIA DO Ot E66. 09 OTHER OBESITY DUE TO EXCESS CALORIES 10/15/2016 FIONA GARCIA DO Ot E78. 4 OTHER HYPERLIPIDEMIA 10/15/2016 FIONA GARCIA DO Ot F41. 9 ANXIETY DISORDER, UNSPECIFIED 10/15/2016 FIONA GARCIA DO Ot R06. 02 SHORTNESS OF BREATH 10/16/2016 FIONA GARCIA DO Ot E66. 09 OTHER OBESITY DUE TO EXCESS CALORIES 10/16/2016 FIONA GARCIA DO Ot E78. 4 OTHER HYPERLIPIDEMIA 10/16/2016 FIONA GARCIA DO Ot F41. 9 ANXIETY DISORDER, UNSPECIFIED 10/16/2016 FIONA GARCIA DO Ot R06. 02 SHORTNESS OF BREATH 06/27/2017 FLORY FORD FACC, CLARICE FACP CCDS Ot E03.9 HYPOTHYROIDISM, UNSPECIFIED 06/27/2017 FLORY FORD FACC, CLARICE FACP CCDS Ot E66.9 OBESITY, UNSPECIFIED 06/27/2017 FLORY FORD FACC, CLARICE FACP CCDS Ot E78.5 HYPERLIPIDEMIA, UNSPECIFIED 06/27/2017 FLORY FORD FACC, ALI FACP CCDS Ot F41.9 ANXIETY DISORDER, UNSPECIFIED 06/27/2017 FLORY FORD FACC, ALI FACP CCDS Ot G47.33 OBSTRUCTIVE SLEEP APNEA (ADULT) (PEDIATR 06/27/2017 FLORY FORD FACC, ALI FACP CCDS Ot I10 ESSENTIAL (PRIMARY) HYPERTENSION 06/27/2017 FLORY FORD FACC, CLARICE FACP CCDS Ot I25.10 ATHSCL HEART DISEASE OF [place] CORONARY 06/27/2017 FLORY FORD FACC, ALI FACP CCDS Ot R00.2 PALPITATIONS 06/27/2017 FLORY RAMIREZC, ALI FACP CCDS Ot R55 SYNCOPE AND COLLAPSE 06/27/2017 FLORY FORD FACC, ALI FACP CCDS Ot Z68.34 BODY MASS INDEX (BMI) 34.0-34.9, ADULT 06/27/2017 FLORY FORD FACC, ALI FACP CCDS Ot Z79.899 OTHER NURSING HOME (CURRENT) DRUG THERAPY 06/27/2017 FLORY FORD FACC, ALI FACP CCDS Ot Z95.1 PRESENCE OF AORTOCORONARY BYPASS GRAFT 07/16/2017 FLORY FORD FACC, ALI FACP CCDS Ot E03.9 HYPOTHYROIDISM, UNSPECIFIED 07/16/2017 FLORY FORD FACC, ALI FACP CCDS Ot E66.9 OBESITY, UNSPECIFIED 07/16/2017 FLORY FORD FACC, ALI FACP CCDS Ot E78.5 HYPERLIPIDEMIA, UNSPECIFIED 07/16/2017 FLORY RAMIREZC, ALI FACP CCDS Ot F41.9 ANXIETY DISORDER, UNSPECIFIED 07/16/2017 FLORY FORD FACC, ALI FACP CCDS Ot G47.33 OBSTRUCTIVE SLEEP APNEA (ADULT) (PEDIATR 07/16/2017 FLORY RAMIREZC, ALI FACP CCDS Ot I10 ESSENTIAL (PRIMARY) HYPERTENSION 07/16/2017 FLORY FORD FACC, ALI FACP CCDS Ot I25.10 ATHSCL HEART DISEASE OF [place] CORONARY 07/16/2017 FLORY FORD FACC, CLARICE FACP CCDS Ot R00.2 PALPITATIONS 07/16/2017 FLORY FORD FACC, ALI FACP CCDS Ot R55 SYNCOPE AND COLLAPSE 07/16/2017 FLORY FORD FACC, ALI FACP CCDS Ot Z68.34 BODY MASS INDEX (BMI) 34.0-34.9, ADULT 07/16/2017 FLORY FORD FACC, ALI FACP CCDS Ot Z79.899 OTHER RADIO ADJUSTER (CURRENT) DRUG THERAPY 07/16/2017 FLORY FORD FACC, ALI FACP CCDS Ot Z95.1 PRESENCE OF AORTOCORONARY BYPASS GRAFT 07/22/2017 FLORY FORD FACC, CLARICE FACP CCDS Ot E03.9 HYPOTHYROIDISM, UNSPECIFIED 07/22/2017 FLORY FORD FACC, ALI FACP CCDS Ot E66.9 OBESITY, UNSPECIFIED 07/22/2017 FLORY FORD FACC, ALI FACP CCDS Ot E78.5 HYPERLIPIDEMIA, UNSPECIFIED 07/22/2017 FLORY FORD FACC, ALI FACP CCDS Ot F41.9 ANXIETY DISORDER, UNSPECIFIED 07/22/2017 FLORY FORD FACC, ALI FACP CCDS Ot G47.33 OBSTRUCTIVE SLEEP APNEA (ADULT) (PEDIATR 07/22/2017 FLORY FORD FACC, ALI FACP CCDS Ot I10 ESSENTIAL (PRIMARY) HYPERTENSION 07/22/2017 FLORY FORD FACC, ALI FACP CCDS Ot I25.10 ATHSCL HEART DISEASE OF [place] CORONARY 07/22/2017 FLORY FORD FACC, ALI FACP CCDS Ot R00.2 PALPITATIONS 07/22/2017 FLORY FORD FACC, ALI FACP CCDS Ot R55 SYNCOPE AND COLLAPSE 07/22/2017 FLORY FORD FACC, ALI FACP CCDS Ot Z68.34 BODY MASS INDEX (BMI) 34.0-34.9, ADULT 07/22/2017 FLORY FORD FACC, ALI FACP CCDS Ot Z79.899 OTHER NURSING HOME (CURRENT) DRUG THERAPY 07/22/2017 FLORY FORD FACC, ALI FACP CCDS Ot Z95.1 PRESENCE OF AORTOCORONARY BYPASS GRAFT 03/06/2018 ASH FRIEND DO Ot M54.16 RADICULOPATHY, LUMBAR REGION 03/26/2018 ASH FRIEND DO Ot M54.16 RADICULOPATHY, LUMBAR REGION 04/01/2018 ASH FRIEND DO Ot M54.16 RADICULOPATHY, LUMBAR REGION 05/08/2018 ALEXANDER HENRIQUEZ Ot R26.9 UNSPECIFIED ABNORMALITIES OF GAIT AND MO 05/13/2018 ALEXANDER HENRIQUEZ Ot R26.9 UNSPECIFIED ABNORMALITIES OF GAIT AND MO 06/15/2018 ALEXANDER HENRIQUEZ Ot R26.9 UNSPECIFIED ABNORMALITIES OF GAIT AND MO 06/16/2018 ALEXANDER HENRIQUEZ Ot R26.9 UNSPECIFIED ABNORMALITIES OF GAIT AND MO 06/16/2018 ALEXANDER HENRIQUEZ Ot R26.9 UNSPECIFIED ABNORMALITIES OF GAIT AND MO 06/26/2018 ALEAXNDER HENRIQUEZ Ot E11.9 TYPE 2 DIABETES MELLITUS WITHOUT COMPLIC 06/26/2018 ALEXANDER HENRIQUEZ Ot F32.9 MAJOR DEPRESSIVE DISORDER, SINGLE EPISOD 06/26/2018 ALEXANDER HENRIQUEZ Ot M81.0 AGE-RELATED OSTEOPOROSIS W/O CURRENT PAT 06/26/2018 ALEXANDER HENRIQUEZ Ot R26.9 UNSPECIFIED ABNORMALITIES OF GAIT AND MO 06/26/2018 ALEXANDER HENRIQUEZ Ot R42 DIZZINESS AND GIDDINESS 06/26/2018 ALEXANDER HENRIQUEZ Ot Z98.1 ARTHRODESIS STATUS 12/30/2018 MATILDE LAINEZ DO Ot 724.02 SPINAL STENOSIS, LUMBAR REG, W/OUT NEURO 12/30/2018 TOM FORD, RADHA Menjivar Ot 610.0 SOLITARY CYST OF BREAST 12/30/2018 MIHIRSAMEER WOODRUFF [place] DR[place] Ot 729.81 SWELLING OF LIMB 12/30/2018 MIHIRKACY SAMEER L [place] DRIVER Ot 924.9 CONTUSION NOS 12/30/2018 MIHIRKACY SAMEER Marta [place] DR[place] Ot E928.9 ACCIDENT NOS 12/30/2018 Ot V45.82 PER CUTANEOUS TRANSLUM CORON ANGIOPLASTY 12/30/2018 Ot V57.89 CINDY ABILITATION PROC NEC 12/30/2018 FLORY FORD FACC, ALI FACP CCDS Ot 250.00 DIAB BRETT WO COMPL, TYPE II OR UNSPEC TY 12/30/2018 FLORY FORD FACC, ALI FACP CCDS Ot 272.4 HYPERLIPIDEMIA NEC/NOS 12/30/2018 FLORY FORD FACC, ALI FACP CCDS Ot 300.00 ANXIETY STATE NOS 12/30/2018 FLORY FORD FACC, ALI FACP CCDS Ot 401.9 HYPERTENSION NOS 12/30/2018 FLORY FORD FACC, ALI FACP CCDS Ot 414.9 CHR ISCHEMIC HRT DIS NOS 12/30/2018 FOLRY FORD FACC, ALI FACP CCDS Ot 715.90 OSTEOARTHROS NOS-UNSPEC 12/30/2018 FLORY FORD FACC, ALI FACP CCDS Ot 729.1 MYALGIA AND MYOSITIS NOS 12/30/2018 FLORY FORD FACC, ALI FACP CCDS Ot 780.4 DIZZINESS AND GIDDINESS 12/30/2018 FLORY FORD FACC, ALI FACP CCDS Ot 786.09 RESPIRATORY ABNORM NEC 12/30/2018 FLORY FORD FACC, ALI FACP CCDS Ot 786.50 CHEST PAIN NOS 12/30/2018 MATILDE LAINEZ DO Ot 722.10 LUMBAR DISC DISPLACEMENT 12/30/2018 MATILDE LAINEZ DO Ot 724.00 SPINAL STENOSIS NOS 12/30/2018 MATILDE LAINEZ DO Ot V72.63 PRE-PROCEDURAL LABORATORY EXAMINATION 12/30/2018 MATILDE LAINEZ DO Ot V72.81 [id number] CARDIOVASCULAR 12/30/2018 MATILDE LAINEZ DO Ot V74 .8 SCREEN-BACTERIAL DIS NEC 12/30/2018 MAXINE, JOVANA B RESEARCH ASSISTANT MEMBER Ot 785.0 TACHYCARDIA NOS 12/30/2018 JOVANA GOODMAN B RESEARCH ASSISTANT MEMBER Ot 786.05 SHORTNESS OF BREATH 12/30/2018 MAXINE JOVANA B RESEARCH ASSISTANT MEMBER Ot 780.60 FEVER, UNSPECIFIED 12/30/2018 MAXINE JOVANA B RESEARCH ASSISTANT MEMBER Ot 780.79 OTH MALAISE FATIGUE 12/30/2018 MAXINE JOVANA B RESEARCH ASSISTANT MEMBER Ot V45.89 POSTSURGICAL STATES NEC 12/30/2018 TOM FORD, RADHA Menjivar Ot 285.9 ANEMIA NOS 12/30/2018 SAMEER RICHTER [place] DR[place] Ot I73.9 PERIPHERAL VASCULAR DISEASE, UNSPECIFIED 12/30/2018 SAMEER RICHTER [place] DR[place] Ot I73.9 PERIPHERAL VASCULAR DISEASE, UNSPECIFIED 12/30/2018 NATHANIEL GRACE [place] DRIVER Ot Z12.31 ENCNTR SCREEN MAMMOGRAM FOR MALIGNANT NE 12/30/2018 FLORY FORD FACC, CLARICE FACP CCDS Ot E66.09 OTHER OBESITY DUE TO EXCESS CALORIES 12/30/2018 FLORY FORD FACC, CLARICE FACP CCDS Ot E78.4 OTHER HYPERLIPIDEMIA 12/30/2018 FLORY FORD FACC, CLARICE FACP CCDS Ot I10 ESSENTIAL (PRIMARY) HYPERTENSION 12/30/2018 FLORY FORD FACC, CLARICE FACP CCDS Ot I25.10 ATHSCL HEART DISEASE OF [place] CORONARY 12/30/2018 FLORY FORD FACC, CLARICE FACP CCDS Ot I65.23 OCCLUSION AND STENOSIS OF [place] 12/30/2018 FLORY FORD FACC, CLARICE FACP CCDS Ot R06.02 SHORTNESS OF BREATH 12/30/2018 FLORY FORD FACC, CLARICE FACP CCDS Ot E66.09 OTHER OBESITY DUE TO EXCESS CALORIES 12/30/2018 FLORY FORD FACC, CLARICE FACP CCDS Ot E78.4 OTHER HYPERLIPIDEMIA 12/30/2018 FLORY FORD FACC, ALI FACP CCDS Ot G47.30 SLEEP APNEA, UNSPECIFIED 12/30/2018 FLORY FORD FACC, ALI FACP CCDS Ot I10 ESSENTIAL (PRIMARY) HYPERTENSION 12/30/2018 FLORY FORD FACC, ALI FACP CCDS Ot I25.10 ATHSCL HEART DISEASE OF [place] CORONARY 12/30/2018 FLORY FORD FACC, ALI FACP CCDS Ot I65.23 OCCLUSION AND STENOSIS OF [place] 12/30/2018 FLORY FORD FACC, ALI FACP CCDS Ot R06.02 SHORTNESS OF BREATH 12/30/2018 FIONA GARCIA DO Ot E66. 09 OTHER OBESITY DUE TO EXCESS CALORIES 12/30/2018 FIONA GARCIA DO Ot E78. 4 OTHER HYPERLIPIDEMIA 12/30/2018 FIONA GARCIA DO Ot F41. 9 ANXIETY DISORDER, UNSPECIFIED 12/30/2018 FIONA GARCIA DO Ot R06. 02 SHORTNESS OF BREATH 12/30/2018 FLORY FORD FACC, CLARICE FACP CCDS Ot E03.9 HYPOTHYROIDISM, UNSPECIFIED 12/30/2018 FLORY FORD FACC, ALI FACP CCDS Ot E66.9 OBESITY, UNSPECIFIED 12/30/2018 FLORY FORD FACC, CLARICE FACP CCDS Ot E78.5 HYPERLIPIDEMIA, UNSPECIFIED 12/30/2018 FLORY FORD FACC, ALI FACP CCDS Ot F41.9 ANXIETY DISORDER, UNSPECIFIED 12/30/2018 FLORY FORD FACC, ALI FACP CCDS Ot G47.33 OBSTRUCTIVE SLEEP APNEA (ADULT) (PEDIATR 12/30/2018 FLORY FORD FACC, ALI FACP CCDS Ot I10 ESSENTIAL (PRIMARY) HYPERTENSION 12/30/2018 FLORY FORD FACC, ALI FACP CCDS Ot I25.10 ATHSCL HEART DISEASE OF [place] CORONARY 12/30/2018 FLORY FORD FACC, ALI FACP CCDS Ot R00.2 PALPITATIONS 12/30/2018 FLORY FORD FACC, ALI FACP CCDS Ot R55 SYNCOPE AND COLLAPSE 12/30/2018 FLORY FORD FACC, ALI FACP CCDS Ot Z68.34 BODY MASS INDEX (BMI) 34.0-34.9, ADULT 12/30/2018 FLORY FORD FACC, ALI FACP CCDS Ot Z79.899 OTHER NURSING HOME (CURRENT) DRUG THERAPY 12/30/2018 FLORY FORD FACC, ALI FACP CCDS Ot Z95.1 PRESENCE OF AORTOCORONARY BYPASS GRAFT 12/30/2018 ASH FRIEND DO Ot M54.16 RADICULOPATHY, LUMBAR REGION 12/30/2018 HAILEY TILLMAN RESEARCH ASSISTANT MEMBER Ot Z12.31 ENCNTR SCREEN MAMMOGRAM FOR MALIGNANT NE 12/30/2018 HAILEY TILLMAN RESEARCH ASSISTANT MEMBER Ot Z12.31 ENCNTR SCREEN MAMMOGRAM FOR MALIGNANT NE 01/19/2019 HAILEY TILLMAN RESEARCH ASSISTANT MEMBER Ot Z12.31 ENCNTR SCREEN MAMMOGRAM FOR MALIGNANT NE 11/08/2019 BAIMA, SAMEER L [place] DR[place] Ot E78.5 HYPERLIPIDEMIA, UNSPECIFIED 11/08/2019 BAIMA, SAMEER L [place] DR[place] Ot I07.1 RHEUMATIC TRICUSPID INSUFFICIENCY 11/08/2019 BAIMA, SAMEER L [place] DRIVER Ot I 10 ESSENTIAL (PRIMARY) HYPERTENSION 11/08/2019 BAIMA, SAMEER L [place] DR[place] Ot I25.10 ATHSCL HEART DISEASE OF [place] CORONARY 11/08/2019 BAIMA, SAMEER L [place] DR[place] Ot R06.09 OTHER FORMS OF DYSPNEA 11/08/2019 BAIMA, SAMEER L [place] DR[place] Ot R07.9 CHEST PAIN, UNSPECIFIED 11/26/2019 BAIMA, SAMEER L [place] DR[place] Ot E78.5 HYPERLIPIDEMIA, UNSPECIFIED 11/26/2019 BAIMA, SAMEER L [place] DR[place] Ot I07.1 RHEUMATIC TRICUSPID INSUFFICIENCY 11/26/2019 BAIMA, SAMEER L [place] DRIVER Ot I 10 ESSENTIAL (PRIMARY) HYPERTENSION 11/26/2019 BAIMA, SAMEER L [place] DRIVER Ot I25.10 ATHSCL HEART DISEASE OF [place] CORONARY 11/26/2019 BAIMA, SAMEER L [place] DRIVER Ot R06.09 OTHER FORMS OF DYSPNEA 11/26/2019 BAIMA, SAMEER L [place] DR[place] Ot R07.9 CHEST PAIN, UNSPECIFIED 12/14/2019 FLORY FORD FACC, ALI FACP CCDS Ot 250.00 DIAB BRETT WO COMPL, TYPE II OR UNSPEC TY 12/14/2019 FLORY FORD FACC, ALI FACP CCDS Ot 272.4 HYPERLIPIDEMIA NEC/NOS 12/14/2019 FLORY FORD FACC, ALI FACP CCDS Ot 300.00 ANXIETY STATE NOS 12/14/2019 FLORY FORD FACC, ALI FACP CCDS Ot 401.9 HYPERTENSION NOS 12/14/2019 FLORY FORD FACC, ALI FACP CCDS Ot 414.9 CHR ISCHEMIC HRT DIS NOS 12/14/2019 FLORY FORD FACC, ALI FACP CCDS Ot 715.90 OSTEOARTHROS NOS-UNSPEC 12/14/2019 FLORY FORD FACC, CLARICE FACP CCDS Ot 729.1 MYALGIA AND MYOSITIS NOS 12/14/2019 FLORY FORD FACC, ALI FACP CCDS Ot 780.4 DIZZINESS AND GIDDINESS 12/14/2019 FLORY FORD FACC, CLARICE FACP CCDS Ot 786.09 RESPIRATORY ABNORM NEC 12/14/2019 FLORY OFRD FACC, CLARICE FACP CCDS Ot 786.50 CHEST PAIN NOS 12/14/2019 MATILDE LAINEZ DO Ot 722.10 LUMBAR DISC DISPLACEMENT 12/14/2019 MATILDE LAINEZ DO Ot 724.00 SPINAL STENOSIS NOS 12/14/2019 MATILDE LAINEZ DO Ot V72.63 PRE-PROCEDURAL LABORATORY EXAMINATION 12/14/2019 MATILDE LAINEZ DO Ot V72.81 [id number] CARDIOVASCULAR 12/14/2019 MATILDE LAINEZ DO Ot V74 .8 SCREEN-BACTERIAL DIS NEC 12/14/2019 JOVANA GOODMAN RESEARCH ASSISTANT MEMBER Ot 785.0 TACHYCARDIA NOS 12/14/2019 JOVANA GOODMAN RESEARCH ASSISTANT MEMBER Ot 786.05 SHORTNESS OF BREATH 12/14/2019 JOVANA GOODMAN RESEARCH ASSISTANT MEMBER Ot 780.60 FEVER, UNSPECIFIED 12/14/2019 JOVANA GOODMAN RESEARCH ASSISTANT MEMBER Ot 780.79 OTH MALAISE FATIGUE 12/14/2019 JOVANA GOODMAN RESEARCH ASSISTANT MEMBER Ot V45.89 POSTSURGICAL STATES NEC 12/14/2019 RADHA SANTOS MD Ot 285.9 ANEMIA NOS 12/14/2019 SAMEER RICHTER [place] Ot I73.9 PERIPHERAL VASCULAR DISEASE, UNSPECIFIED 12/14/2019 SAMEER RICHTER [place] DR[place] Ot I73.9 PERIPHERAL VASCULAR DISEASE, UNSPECIFIED 12/14/2019 NATHANIEL GRACE [place] Ot Z12.31 ENCNTR SCREEN MAMMOGRAM FOR MALIGNANT NE 12/14/2019 FLORY FORD FACC, CLARICE FACP CCDS Ot E66.09 OTHER OBESITY DUE TO EXCESS CALORIES 12/14/2019 FLORY FORD FACC, CLARICE FACP CCDS Ot E78.4 OTHER HYPERLIPIDEMIA 12/14/2019 FLORY MD FACC, ALI FACP CCDS Ot I10 ESSENTIAL (PRIMARY) HYPERTENSION 12/14/2019 FLORY FACC, ALI FACP CCDS Ot I25.10 ATHSCL HEART DISEASE OF [place] CORONARY 12/14/2019 FLORY MD FACC, ALI FACP CCDS Ot I65.23 OCCLUSION AND STENOSIS OF [place] 12/14/2019 FLORY MD FACC, ALI FACP CCDS Ot R06.02 SHORTNESS OF BREATH 12/14/2019 [facility] CCDS Ot E66.09 OTHER OBESITY DUE TO EXCESS CALORIES 12/14/2019 [facility], ALI F[facility] CCDS Ot E78.4 OTHER HYPERLIPIDEMIA 12/14/2019 FLORY [facility], ALI FACP CCDS Ot G47.30 SLEEP APNEA, UNSPECIFIED 12/14/2019 FLORY FAC, ALI FACP CCDS Ot I10 ESSENTIAL (PRIMARY) HYPERTENSION 12/14/2019 FLORY [facility], ALI FACP CCDS Ot I25.10 ATHSCL HEART DISEASE OF [place] CORONARY 12/14/2019 [facility], ALI FACP CCDS Ot I65.23 OCCLUSION AND STENOSIS OF [place] 12/14/2019 [facility], ALI FACP CCDS Ot R06.02 SHORTNESS OF BREATH 12/14/2019 FIONA GARCIA DO Ot E66. 09 OTHER OBESITY DUE TO EXCESS CALORIES 12/14/2019 FIONA GARCIA DO Ot E78. 4 OTHER HYPERLIPIDEMIA 12/14/2019 FIONA GARCIA DO Ot F41. 9 ANXIETY DISORDER, UNSPECIFIED 12/14/2019 FIONA GARCIA DO Ot R06. 02 SHORTNESS OF BREATH 12/14/2019 FLORY [facility], ALI FACP CCDS Ot E03.9 HYPOTHYROIDISM, UNSPECIFIED 12/14/2019 [facility], ALI FACP CCDS Ot E66.9 OBESITY, UNSPECIFIED 12/14/2019 FLORY [facility], ALI FACP CCDS Ot E78.5 HYPERLIPIDEMIA, UNSPECIFIED 12/14/2019 [facility], ALI FACP CCDS Ot F41.9 ANXIETY DISORDER, UNSPECIFIED 12/14/2019 FLORY [facility], ALI FACP CCDS Ot G47.33 OBSTRUCTIVE SLEEP APNEA (ADULT) (PEDIATR 12/14/2019 FLORY FORD [facility], ALI FACP CCDS Ot I10 ESSENTIAL (PRIMARY) HYPERTENSION 12/14/2019 FLORY FORD [facility], ALI FACP CCDS Ot I25.10 ATHSCL HEART DISEASE OF [place] CORONARY 12/14/2019 FLORY FORD [facility], ALI FACP CCDS Ot R00.2 PALPITATIONS 12/14/2019 FLORY FORD [facility], ALI FACP CCDS Ot R55 SYNCOPE AND COLLAPSE 12/14/2019 FLORY FORD [facility], ALI FACP CCDS Ot Z68.34 BODY MASS INDEX (BMI) 34.0-34.9, ADULT 12/14/2019 FLORY FORD [facility], ALI FACP CCDS Ot Z79.899 OTHER NURSING HOME (CURRENT) DRUG THERAPY 12/14/2019 FLORY FORD [facility], ALI FACP CCDS Ot Z95.1 PRESENCE OF AORTOCORONARY BYPASS GRAFT 12/14/2019 ASH FRIEND DO Ot M54.16 RADICULOPATHY, LUMBAR REGION 12/14/2019 HAILEY TILLMAN APRN Ot Z12.31 ENCNTR SCREEN MAMMOGRAM FOR MALIGNANT NE 12/14/2019 BAIMA, SAMEER L [place] Ot E78.5 HYPERLIPIDEMIA, UNSPECIFIED 12/14/2019 BAIMA, SAMEER L [place] DR[place] Ot I07.1 RHEUMATIC TRICUSPID INSUFFICIENCY 12/14/2019 BAIMA, SAMEER L [place] DR[place] Ot I 10 ESSENTIAL (PRIMARY) HYPERTENSION 12/14/2019 BAIMA, SAMEER L [place] DR[place] Ot I25.10 ATHSCL HEART DISEASE OF [place] CORONARY 12/14/2019 BAIMA, SAMEER L [place] DR[place] Ot R06.09 OTHER FORMS OF DYSPNEA 12/14/2019 BAIMA, SAMEER L [place] DR[place] Ot R07.9 CHEST PAIN, UNSPECIFIED 12/15/2019 BAIMA, SAMEER L [place] DR[place] Ot E78.5 HYPERLIPIDEMIA, UNSPECIFIED 12/15/2019 BAIMA, SAMEER L [place] DRIVER Ot I 10 ESSENTIAL (PRIMARY) HYPERTENSION 12/15/2019 BAIMA, SAMEER L [place] DRIVER Ot I25.10 ATHSCL HEART DISEASE OF [place] CORONARY 12/15/2019 BAIMA, SAMEER L [place] DRIVER Ot R06.09 OTHER FORMS OF DYSPNEA 12/15/2019 BAIMA, SAMEER L [place] DR[place] Ot R07.89 OTHER CHEST PAIN 12/20/2019 BAIMA, SAMEER L [place] DR[place] Ot E78.5 HYPERLIPIDEMIA, UNSPECIFIED 12/20/2019 BAIMA, SAMEER L [place] DRIVER Ot I 10 ESSENTIAL (PRIMARY) HYPERTENSION 12/20/2019 BAIMA, SAMEER L [place] DRIVER Ot I25.10 ATHSCL HEART DISEASE OF [place] CORONARY 12/20/2019 BAIMA, SAMEER L [place] DRIVER Ot R06.09 OTHER FORMS OF DYSPNEA 12/20/2019 BAIMA, SAMEER L [place] DR[place] Ot R07.89 OTHER CHEST PAIN 01/11/2020 BAIMA, SAMEER L [place] DRIVER Ot E78.5 HYPERLIPIDEMIA, UNSPECIFIED 01/11/2020 BAIMA, SAEMER L [place] DRIVER Ot I 10 ESSENTIAL (PRIMARY) HYPERTENSION 01/11/2020 BAIMA, SAMEER L [place] DRIVER Ot I25.10 ATHSCL HEART DISEASE OF [place] CORONARY 01/11/2020 BAIMA, SAMEER L [place] DRIVER Ot R06.09 OTHER FORMS OF DYSPNEA 01/11/2020 BAIMA, SAMEER L [place] DR[place] Ot R07.89 OTHER CHEST PAIN 01/26/2020 BAIMA, SAMEER L [place] DR[place] Ot I70.213 [place]CL [place] ARTERIES OF EXTRM W INTRMT 01/27/2020 BAIMA, SAMEER L [place] DRIVER Ot I70.213 A[place] ARTERIES OF EXTRM W INTRMT 02/18/2020 BAIMA, SAMEER L [place] DR[place] Ot I70.213 A[place]CL [place] ARTERIES OF EXTRM W INTRMT 02/28/2020 W E03.4 Atro phy of thyroid (acquired) [facility] 02/28/2020 W E11.42 Typ e 2 diabetes mellitus with diabetic polyneuropathy [facility] 02/28/2020 W I10 Essent ial (primary) hypertension [facility] 04/07/2020 W R60.0 Loca lized edema Hailey Tillman 04/11/2020 W R60.0 Loca lized edema Hailey Tillman Procedures Code Description Performed By Per edil On 77.79 EXCI SE BONE FOR GFT NEC 05/29/2015 80.51 EXCI NERI INTERVERT DISC 05/29/2015 81.06 LUMB AR LUMBOSACRAL FUSION OF ANTERIOR 05/29/2015 81.07 LUMB AR LUMBOSACRAL FUSION OF POSTERIOR 05/29/2015 81.62 FUSI ON/REFUS OF 2-3 [place] 05/29/2015 84.51 INSE RTION OF INTERBODY SPINAL FUSION DEV 05/29/2015 Results Test Result Range Coronavirus SARS-CoV-2 SO 2018 - 0 08:40 Coronavirus Ab [Units/volume] in Serum Negative Negative Encounters ACCT No. Visit Date/Time Discharge Status Pt. Type Provider Facility Loc./Unit Complaint [id number] 08/07/2017 03:02:24 08/07/2017 23:59:5 9 CLS Outpatient 384 02/28/2020 10:43:00 Document Registration [id number] 05/23/2020 06:28:00 13:47:00 DIS Outpatient DEBBIE VIDAL MD [facility] PREOP CATARACT RIGHT EYE [id number] 01/27/2020 14:35:00 23:59:59 CLS Outpatient BAIMA, SAMEER L [place] DR[place] [facility] RAD ATHEROSCLEROSIS OF [place] ARTERIES [id number] 12/14/2019 07:33:00 23:59:59 CLS Outpatient BAIMA, SAMEER L [place] DR[place] [facility] CARD CAD [id number] 11/05/2019 13:58:00 23:59:59 CLS Outpatient BAIMA, SAMEER L [place] DR[place] [facility] CARD CAD, OTHER CHES T PAIN [id number] 10/11/2019 12:00:00 23:59:59 CLS Preadmit BAIMA, SAMEER L [place] [facility] CARD CAD, OTHER CHEST PAIN [id number] 12/30/2018 09:54:00 23:59:59 CLS Outpatient HAILEY TILLMAN APRN [facility] RAD SCREENING [id number] 06/16/2018 00:10:00 23:59:59 CLS Outpatient ALEXANDER HENRIQUEZ [facility] REHAB BALANCE AND GAIT DEFICI T [id number] 06/12/2018 14:25:00 00:01:00 DIS Outpatient ALEXANDER HENRIQUEZ [facility] REHAB BALANCE AND GAIT DEFICI T [id number] 03/05/2018 13:39:00 018 23:59:59 CLS Outpatient ASH FRIEND DO [facility] CARD M54.16 LUMBAR RADICULOPATHY [id number] 06/17/2017 08:35:00 017 23:59:59 CLS Outpatient FLORY FORD FACC, CLARICE RAMIREZP CC DS [facility] CATH DM2,HTN,HL [id number] 09/24/2016 14:00:00 14:52:00 DIS Outpatient FIONA GARCIA DO [facility] SLEEP SNORING, EDS, OBESITY, CAD, HPN [id number] 09/20/2016 14:57:00 23:59:59 CLS Outpatient FIONA GARCIA DO [facility] RT SOB,OBESITY,ANXIETY [id number] 09/04/2016 12:55:00 016 23:59:59 CLS Outpatient FLORY FORD FACC, CLARICE RAMIREZP CC DS [facility] CARD SOB,HLP,HTN ,CAD [id number] 09/03/2016 07:36:00 016 23:59:59 CLS Outpatient FLORY FORD FACC, CLARICE RAMIREZP CC DS [facility] CARD SOB,HLP,HTN ,CAD [id number] 07/09/2016 08:57:00 016 23:59:59 CLS Outpatient NATHANIEL GRACE [place] [facility] RAD SCREENING [id number] 02/22/2016 12:56:00 016 23:59:59 CLS Outpatient SAMEER RICHTER [place] [facility] RAD CLAUDICATION [id number] 02/08/2016 13:30:00 016 23:59:59 CLS Outpatient SAMEER RICHTER [place] [facility] RAD CLAUDICATION [id number] 07/27/2015 16:10:00 23:59:59 CLS Outpatient RADHA SANTOS MD [facility] HH LOW HEMOGLOBIN [id number] 06/23/2015 16:22:00 015 23:59:59 CLS Outpatient JOVANA GOODMAN RESEARCH ASSISTANT MEMBER [facility] LAB ELEVATED TEMP,FATIGUE, RECENT BACK SURGERY [id number] 06/21/2015 11:28:00 015 23:59:59 CLS Outpatient JOVANA GOODMAN RESEARCH ASSISTANT MEMBER [facility] RAD SOB,TACHYCARDIA [id number] 06/02/2015 10:05:00 015 13:10:00 DIS Inpatient CHEY MORILLO MD [facility] IRF STENOSIS [id number] 05/29/2015 07:54:00 015 10:05:00 DIS Inpatient MATILDE LAINEZ DO [facility] SURGICAL STENOSIS [id number] 05/15/2015 08:02:00 015 23:59:59 CLS Outpatient MATILDE LAINEZ DO [facility] PREOP STENOSIS [id number] 04/30/2015 09:03:00 015 10:38:00 DIS Emergency YUNI EVANS MD [facility] ER BACK PAIN [id number] 04/18/2015 13:18:00 015 23:59:59 CLS Outpatient MATILDE LAINEZ DO [facility] RAD LUMBAR RADICULOPATHY [id number] 03/10/2015 14:10:00 015 23:59:59 CLS Outpatient CLARICE RUTH MD, FACC, FACP DS [facility] RT CAD ANXIETY CHEST PAIN DIABETES DIZZINESS [id number] 04/22/2014 11:58:00 014 00:01:00 DIS Outpatient CLARICE RUTH MD, FACC, FACP CC DS [facility] CR STENT [id number] [id number] 05/10/2014 14:16:00 014 23:59:59 CLS Outpatient [id number] 01/21/2014 12:50:00 014 23:59:59 CLS Outpatient SAMEER RICHTER [facility] RAD LEG SWELLING AN D BRUISING [id number] 01/11/2014 09:44:00 014 12:00:00 DIS Outpatient FLORY FORD FACC, CLARICE FACP CC DS [facility] CATH CP,CAD,DIAB ETES, HLP [id number] 11/19/2013 10:06:00 014 23:59:59 CLS Outpatient RADHA SANTOS MD [facility] RAD BILATERAL BREAST PAIN, HX BREAST BX [id number] 11/11/2013 12:59:00 013 23:59:59 CLS Outpatient MATILDE LAINEZ DO [facility] RAD LUMBAR RADICULOPATHY [id number] 10/08/2013 11:15:00 013 15:15:00 DIS Outpatient MATILDE LAINEZ DO [facility] REHAB LUMBAR STENOSIS [id number] 06/02/2020 10:45:00 P EN Preadmit DEBBIE VIDAL MD [facility] CATARACT LEFT EYE [id number] 05/26/2020 10:15:00 P EN PreadDEBBIE Santana MD [facility] CATARACT RIGHT EYE [id number] 02/08/2016 13:30:00 Document Registration [id number] 05/23/2014 09:00:00 Document Registration [id number] 12/24/2012 07:58:00 Document Registration [id number] 10/01/2012 15:39:00 Document Registration [id number] 07/06/2012 08:06:00 Document Registration [id number] 07/03/2012 08:09:00 Document Registration [id number] 03/03/2012 08:18:00 Document Registration [id number] 03/02/2012 08:59:00 Document Registration [id number] 03/02/2012 08:38:00 Document Registration [id number] 02/25/2012 14:36:00 Document Registration [id number] 02/13/2012 10:09:00 Document Registration [id number] 05/27/2011 05:49:00 Document Registration [id number] 05/23/2011 11:55:00 Document Registration [id number] 12/14/2010 13:04:00 Document Registration [id number] 09/28/2010 11:32:00 Document Registration [id number] 09/14/2010 09:00:00 Document Registration [id number] 09/12/2010 11:41:00 Document Registration
--- NOTE | 2020-05-29 07:20 | Anesthesia-General Post-Op ---
MAC Significant Intra-Op Events Notes late entry 05/26/20 Patient Condition Mental Status/LOC: Same as Preop Cardiovascular: Satisfactory Nausea/Vomiting: Absent Respiratory: Satisfactory Pain: Controlled Complications: Absent Post Op Complications Complications None Follow Up Care/Instructions Patient Instructions None needed. Anesthesiology Discharge Order Discharge Order Patient is doing well, no complaints, stable vital signs, no apparent adverse anesthesia problems. No complications reported per nursing. TAMANNA LORENZANA CRNA May 29, 2020 07:20
== END 2020-05-26 09:55 | disposition home or self-care (01) ==
LOC: SDC 07:57
PROVIDERS: ATTEND Specialist
DX: H25.11 Age-related nuclear cataract, right eye (principal); E11.36 Type 2 diabetes mellitus with diabetic cataract; H40.9 Unspecified glaucoma; F41.9 Anxiety disorder, unspecified; E03.9 Hypothyroidism, unspecified; I11.9 Hypertensive heart disease without heart failure; M19.90 Unspecified osteoarthritis, unspecified site; Z79.899 Other long term (current) drug therapy; Z88.0 Allergy status to penicillin; Z88.8 Allergy status to other drugs, medicaments and biological substances; Z90.710 Acquired absence of both cervix and uterus; Z95.5 Presence of coronary angioplasty implant and graft
CPT/HCPCS: 66982; V2632

== ENCOUNTER 2020-05-30 05:45 | Outpatient (RCR) | payer MEDICARE, BC | END 2020-05-30 15:00 | disposition home or self-care (01) | LOC: PREOP 05:45 | PROVIDERS: ATTEND Specialist | DX: Z01.812 Encounter for preprocedural laboratory examination (principal); H26.9 Unspecified cataract; Z20.828 Contact with and (suspected) exposure to other viral communicable diseases | CPT/HCPCS: 87635 ==

== ENCOUNTER 2020-06-02 08:15 | Day surgery (SDC) | payer MEDICARE, BC ==
[~2020-06-02] VITALS: Ht 162.6 cm; Wt 85.0 kg
[2020-06-02 08:20] VITALS: BP 166/70
[2020-06-02] MEDS ORDERED: TIMOLOL MALEATE 0.5% 5 ML (TIMOPTIC) BTL OU PRN (08:30)
[2020-06-02] MEDS ORDERED: MOXIFLOXACIN OPHTH SOLN 5 MG/ML 0.3 ML SYRINGE OP ONE (08:30)
[2020-06-02] MEDS ORDERED: POVIDONE (BETADINE) OPHTH SOLN 5% 30 ML OP ONE (08:30)
[2020-06-02] MEDS ORDERED: LIDOCAINE PF 1% 2 ML VIAL IR PRN (08:30)
[2020-06-02] MEDS: TETRACAINE 0.5% OPHTH SOLN 4 ML BTL (SINGLE DOSE ONLY) OU PRN ×4 (08:34→08:53)
[2020-06-02] MEDS: PHENYLEPHRINE 10% OPHTH (NEO-SYN) 5 ML BTL OU SCH ×3 (08:40→08:53)
[2020-06-02] MEDS: CYCLOPENTOLATE 1% (CYCLOGYL) 2 ML DROPS OP SCH ×3 (08:40→08:53)
[2020-06-02] MEDS ORDERED: MIDAZOLAM 2 MG/2 ML (VERSED) VIAL ONE (08:45)
--- NOTE | 2020-06-02 09:23 | Ophthalmologist Pre-Op Note ---
Pre-Operative Progress Note H&P Reviewed The H&P was reviewed, patient examined and no changes noted. Date H&P Reviewed: Jun 02, 2020 Time H&P Reviewed: 09:23 Pre-Op Dx Cataract, Left Eye DEBBIE VIDAL MD Jun 02, 2020 09:23
--- NOTE | 2020-06-02 09:51 | Ophthalmology Operative Report ---
Cataract removal/placement IOL PREOPERATIVE DIAGNOSIS: Cataract Left Eye POSTOPERATIVE DIAGNOSIS: Cataract Left Eye PROCEDURE: Cataract removal and placement of posterior chamber implant, left eye SURGEON: Chuck Vidal ANESTHESIA: Topical with sedation COMPLICATIONS: None ESTIMATED BLOOD LOSS: Minimal DESCRIPTION OF PROCEDURE: After proper informed consent was obtained, the patient, a [id number] female, was taken to the Operating Room and the left eye was anesthetized with tetracaine. The left eye was then prepped and draped in the usual manner. A wire lid speculum was placed. A paracentesis was made at the left hand position. Preservative free lidocaine was injected into the anterior chamber followed by viscoelastic. A clear corneal incision was made in the temporal position. A capsulorrhexis was preformed and the central nuclear and cortical material were removed. The posterior capsule was polished and an Inder 22.0 AU00T0 was placed into the capsular bag. The residual viscoelastic was aspirated and balanced saline solution was injected into the anterior chamber. Moxifloxacin was injected into the anterior chamber. The wound was checked and found to be water tight. The patient tolerated the procedure well without complications. CHUCK VIDAL MD Jun 02, 2020 09:51
[2020-06-02] MEDS ORDERED: acetaZOLAMIDE ER 500 MG CAP (DIAMOX SEQUELS) PO ONE (10:00)
[2020-06-02 10:05] VITALS: BP 168/81
--- OUTSIDE RECORDS SUMMARY | 2020-06-02 10:28 | XMS REPORT | Continuity of Care Document ---
Author Organization Unknown Address Unknown Phone Unavailable Allergies Active Description Code Type Severity Reaction Onset Reported/Identified Relationship to Patient Clinical Status Yes Penicillins [id number] Drug Aller gy Unknown N/A 08/12/2007 Yes aliskiren hemifumarate [id number] Drug Allergy Unknown N/A 05/24/2020 Yes lisinopril [id number] Drug Allerg y Unknown cough 05/24/2020 Yes Penicillins [id number] Drug Aller gy Unknown HAS RECEIVED AN 05/24/2020 Medications There is no data. 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 05/28/2011 Ot 616.10 VAG INITIS NOS 05/28/2011 Ot 617.0 UTER INE ENDOMETRIOSIS 05/28/2011 Ot 618.1 UTER INE PROLAPSE 10/18/2013 MATILDE LAINEZ DO Ot 724.02 SPINAL STENOSIS, LUMBAR REG, W/OUT NEURO 10/18/2013 MATILDE LAINEZ DO Ot V57 .1 PHYSICAL THERAPY NEC 01/12/2014 FLORY FORD FACC, ALI FACP CCDS Ot 244.9 HYPOTHYROIDISM NOS 01/12/2014 FLORY FORD FACC, ALI FACP CCDS Ot 272.4 HYPERLIPIDEMIA NEC/NOS 01/12/2014 FLORY FORD FACC, ALI FACP CCDS Ot 278.00 OBESITY, NOS 01/12/2014 FLORY FORD FACC, ALI FACP CCDS Ot 300.00 ANXIETY STATE NOS 01/12/2014 FLORY FORD FACC, CLARICE FACP CCDS Ot 401.9 HYPERTENSION NOS 01/12/2014 FLORY FORD FACC, CLARICE FACP CCDS Ot 414.01 CORONARY ATHEROSCLEROSIS OF [place] CORON 01/12/2014 FLORY FORD FACC, ALI FACP CCDS Ot 414.02 CORON ATHEROSCLEROSIS AUTOLOG [...] V45.81 AORTOCORONARY BYPASS 01/12/2014 FLORY FORD FACC, CLARICE FACP CCDS Ot V58.69 OT MED,LT,CURRENT USE 01/12/2014 FLORY FORD FACC, ALI FACP CCDS Ot V85.32 BODY MASS INDEX 32.0-32.9, ADULT 05/22/2014 FLORY FORD FACC, CLARICE FACP CCDS Ot V45.82 PERCUTANEOUS TRANSLUM CORON [...] ALI FACP CCDS Ot 250.00 04/16/2015 FLORY FORD FACC, ALI FACP CCDS Ot 272.4 04/16/2015 FLORY [...] ALI FACP CCDS Ot 250.00 05/13/2015 FLORY RAMIREZ, CLARICE FACP CCDS Ot 272.4 05/13/2015 FLORY FORD FACC, ALI FACP CCDS Ot 300.00 05/13/2015 FLORY RAMIREZC, ALI FACP CCDS Ot 401.9 05/13/2015 FLORY FORD FACC, ALI FACP CCDS Ot 414.9 05/13/2015 FLORY FORD FACC, ALI FACP CCDS Ot 715.90 05/13/2015 FLORY FORD [facility] CCDS Ot 729.1 05/13/2015 FLORY FORD [facility] CCDS Ot 780.4 05/13/2015 FLORY FORD [facility] CCDS Ot 786.09 05/13/2015 FLORY FORD [facility] CCDS Ot 786.50 05/17/2015 MATILDE LAINEZ DO Ot 724.00 05/17/2015 FATOU JOHNSON MATILDE Jolley Ot V72.63 05/17/2015 MATILDE LAINEZ DO Ot V72.81 05/17/2015 MATILDE LAINEZ DO Ot V74 .8 05/29/2015 Ot V45.82 05/29/2015 Ot V57.89 05/29/2015 Ot V45.82 05/29/2015 Ot V57.89 06/02/2015 MATILDE LAINEZ DO Ot 250.00 DIAB BRETT WO COMPL, TYPE II OR UNSPEC TY 06/02/2015 FATOU DO MATILDE Jolley Ot 311 DEPRESSIVE DISORDER NEC 06/02/2015 FATOU JOHNSON MATILDE Jolley Ot 724.03 SPINAL STENOSIS, LUMBAR REGION, W NEUROG 06/02/2015 FATOU JOHNSON MATILDE Jolley Ot 724 .4 LUMBOSACRAL NEURITIS NOS 06/02/2015 FATOU JOHNSON MATILDE Jolley Ot 733.00 OSTEOPOROSIS NOS 06/02/2015 FATOU JOHNSON MATILDE Jolley Ot V45.81 AORTOCORONARY BYPASS 06/02/2015 FATOU DO MATILDE Jolley Ot V45.82 PERCUTANEOUS TRANSLUM CORON [...] CHEY E Ot V45.4 ARTHRODESIS STATUS 06/07/2015 CHEY MORILLO MD Ot V45.8 1 AORTOCORONARY BYPASS 06/07/2015 CHEY MORILLO MD Ot V57.8 9 REHABILITATION PROC NEC 06/07/2015 CHEY MORILLO MD Ot V58.7 8 AFTERCARE POST SURGERY MUSCULOSKELETAL S 06/07/2015 MATILDE LAINEZ DO Ot 724.00 06/07/2015 MATILDE LAINEZ DO Ot V72.63 06/07/2015 MATILDE LAINEZ DO Ot V72.81 06/07/2015 MATILDE LAINEZ DO Ot V74 .8 06/15/2015 MATILDE LAINEZ DO Ot 724.00 06/15/2015 MATILDE LAINEZ DO Ot V72.63 06/15/2015 FATOU MATILDE Jolley Ot V72.81 06/15/2015 FATOU JOHNSON MATILDE Jolley Ot V74 .8 07/14/2015 JOVANA GOODMAN APRN Ot 785.0 07/14/2015 JOVANA GOODMAN POTATO SPOTTER Ot 786.05 07/17/2015 JOVANA GOODMAN P[employer]ATO SPOTTER Ot 780.60 07/17/2015 JOVANA GOODMAN POTATO SPOTTER Ot 780.79 07/17/2015 JOVANA GOODMAN POTATO SPOTTER Ot V45.89 07/20/2015 JOVANA GOODMAN POTATO SPOTTER Ot 785.0 07/20/2015 JOVANA GOODMAN POTATO SPOTTER Ot 786.05 08/16/2015 TOM FORD, RADHA Menjivar [...] TOM FORD, RADHA Menjivar Ot 610.0 02/08/2016 SAMEER RICHTER SUPERVISOR CELL MAINTENANCE Ot 729.81 02/08/2016 SAMEER RICHTER SUPERVISOR CELL MAINTENANCE Ot 924.9 02/08/2016 BAISAMEER WOODRUFF SUPERVISOR CELL MAINTENANCE Ot E928.9 02/08/2016 Ot V45.82 02/08/2016 Ot V57.89 02/08/2016 FLORY FORD FACC, ALI FACP CCDS Ot 250.00 02/08/2016 FLORY FORD FACC, ALI FACP CCDS Ot 272.4 02/08/2016 FLORY FORD FACC, ALI FACP CCDS Ot 300.00 02/08/2016 FLORY FORD FACC, ALI FACP CCDS Ot 401.9 02/08/2016 FLORY FORD FACC, ALI FACP CCDS Ot 414.9 02/08/2016 FLORY FORD FACC, ALI FACP CCDS Ot 715.90 02/08/2016 FLORY FORD FACC, ALI FACP CCDS Ot 729.1 02/08/2016 FLORY RAMIREZC, ALI FACP CCDS Ot 780.4 02/08/2016 FLORY RAMIREZC, ALI FACP CCDS Ot 786.09 02/08/2016 FLORY FORD FACC, ALI FACP CCDS Ot 786.50 02/08/2016 MATILDE LAINEZ DO Ot 722.10 02/08/2016 MATILDE LAINEZ DO Ot 724.00 02/08/2016 MATILDE LAINEZ DO Ot V72.63 02/08/2016 MATILDE LAINEZ DO Ot V72.81 02/08/2016 MATILDE LAINEZ DO Ot V74 .8 02/08/2016 JOVANA GOODMAN POTATO SPOTTER Ot 785.0 02/08/2016 JOVANA GOODMAN POTATO SPOTTER Ot 786.05 02/08/2016 JOVANA GOODMAN POT[employer]O SPOTTER Ot 780.60 02/08/2016 JOVANA GOODMAN POTATO SPOTTER Ot 780.79 02/08/2016 JOVANA GOODMAN POTATO SPOTTER Ot V45.89 02/08/2016 TOM FORD, RADHA Menjivar Ot 285.9 02/09/2016 SAMEER RICHTER SUPERVISOR CELL MAINTENANCE Ot I73.9 02/22/2016 BAIMASAMEER SUPERVISOR CELL MAINTENANCE Ot I73.9 02/23/2016 BAIMASAMEER L SUPERVISOR CELL MAINTENANCE Ot I73.9 02/28/2016 BAIMA SAMEER L SUPERVISOR CELL MAINTENANCE Ot I73.9 03/06/2016 BAIMA SAMEER L SUPERVISOR CELL MAINTENANCE Ot I73.9 PERIPHERAL VASCULAR DISEASE, UNSPECIFIED 03/13/2016 BAIMA SAMEER L SUPERVISOR CELL MAINTENANCE Ot I73.9 PERIPHERAL VASCULAR DISEASE, UNSPECIFIED 03/21/2016 BAIMA SAMEER L SUPERVISOR CELL MAINTENANCE Ot I73.9 PERIPHERAL VASCULAR DISEASE, UNSPECIFIED 07/09/2016 NATHANIEL GRACE SUPERVISOR CELL MAINTENANCE Ot Z12.31 ENCNTR SCREEN MAMMOGRAM FOR MALIGNANT NE 07/10/2016 NATHANIEL GRACE SUPERVISOR CELL MAINTENANCE Ot Z12.31 ENCNTR SCREEN MAMMOGRAM FOR MALIGNANT NE 07/10/2016 NATHANIEL GRACE SUPERVISOR CELL MAINTENANCE Ot Z12.31 ENCNTR SCREEN MAMMOGRAM FOR MALIGNANT NE 07/17/2016 Ot 285.9 ANEM IA NOS 07/17/2016 Ot 625.8 FEM GENITAL SYMPTOMS NEC 07/17/2016 Ot 627.1 POST MENOPAUSAL BLEEDING 07/17/2016 Ot V72.63 PRE -PROCEDURAL LABORATORY EXAMINATION 07/17/2016 Ot V72.81 [id number] CARDIOVASCULAR 07/17/2016 Ot V74.8 SCRE EN-BACTERIAL DIS [...] SPINAL STENOSIS, LUMBAR REG, W/OUT NEURO 07/17/2016 TMO FORD, RADHA A Ot 610.0 SOLITARY CYST OF BREAST 07/17/2016 SAMEER RICHTER SUPERVISOR CELL MAINTENANCE Ot 729.81 SWELLING OF LIMB 07/17/2016 SAMEER RICHTER SUPERVISOR CELL MAINTENANCE Ot 924.9 CONTUSION NOS 07/17/2016 SAMEER RICHTER SUPERVISOR CELL MAINTENANCE Ot E928.9 ACCIDENT NOS 07/17/2016 Ot V45.82 PER CUTANEOUS TRANSLUM CORON ANGIOPLASTY 07/17/2016 Ot V57.89 CINDY ABILITATION PROC NEC 07/17/2016 FLORY FORD FACC, ALI FACP CCDS Ot 250.00 DIAB BRETT WO COMPL, TYPE II OR UNSPEC TY 07/17/2016 FLORY FORD FACC, ALI FACP CCDS Ot 272.4 HYPERLIPIDEMIA NEC/NOS 07/17/2016 FLORY RAMIREZ, ALI FACP CCDS Ot 300.00 ANXIETY STATE NOS 07/17/2016 FLORY FORD FACC, ALI FACP CCDS Ot 401.9 HYPERTENSION NOS 07/17/2016 FLORY FORD FACC, ALI FACP CCDS Ot 414.9 CHR ISCHEMIC HRT DIS NOS 07/17/2016 FLORY RAMIREZC, ALI FACP CCDS Ot 715.90 OSTEOARTHROS NOS-UNSPEC 07/17/2016 FLORY FORD FACC, ALI FACP CCDS Ot 729.1 MYALGIA AND MYOSITIS NOS 07/17/2016 FLORY FORD FACC, ALI FACP CCDS Ot 780.4 DIZZINESS AND GIDDINESS 07/17/2016 FLORY FORD FACC, ALI FACP CCDS Ot 786.09 RESPIRATORY ABNORM NEC 07/17/2016 FLORY FORD FACC, ALI FACP CCDS Ot 786.50 CHEST PAIN NOS 07/17/2016 MATILDE LAINEZ DO Ot 722.10 LUMBAR DISC DISPLACEMENT 07/17/2016 MATILDE LAINEZ DO Ot 724.00 SPINAL STENOSIS NOS 07/17/2016 MATILDE LAINEZ DO Ot V72.63 PRE-PROCEDURAL LABORATORY EXAMINATION 07/17/2016 MATILDE LAINEZ DO Ot V72.81 [id number] CARDIOVASCULAR 07/17/2016 MATILDE LAINEZ DO Ot V74 .8 SCREEN-BACTERIAL DIS NEC 07/17/2016 JOVANA GOODMAN POTATO SPOTTER Ot 785.0 TACHYCARDIA NOS 07/17/2016 JOVANA GOODMAN POTATO SPOTTER Ot 786.05 SHORTNESS OF BREATH 07/17/2016 JOVANA GOODMAN POTAT[employer] SPOTTER Ot 780.60 FEVER, UNSPECIFIED 07/17/2016 JOVANA GOODMAN POTATO SPOTTER Ot 780.79 OTH MALAISE FATIGUE 07/17/2016 JOVANA GOODMAN POTATO SPOTTER Ot V45.89 POSTSURGICAL STATES NEC 07/17/2016 TOM FORD, RADHA Menjivar Ot 285.9 ANEMIA NOS 07/17/2016 SAMEER RICHTER SUPERVISOR CELL MAINTENANCE Ot I73.9 PERIPHERAL VASCULAR DISEASE, UNSPECIFIED 07/17/2016 SAMEER RICHTER SUPERVISOR CELL MAINTENANCE Ot I73.9 PERIPHERAL VASCULAR DISEASE, UNSPECIFIED 07/17/2016 NATHANIEL GRACE SUPERVISOR CELL MAINTENANCE Ot Z12.31 ENCNTR SCREEN MAMMOGRAM FOR MALIGNANT NE 08/02/2016 NATHANIEL GRACE SUPERVISOR CELL MAINTENANCE Ot Z12.31 ENCNTR SCREEN MAMMOGRAM FOR MALIGNANT NE 09/04/2016 FLORY FORD FACDerek, ALI FACP CCDS Ot E66.09 OTHER OBESITY DUE TO EXCESS CALORIES 09/04/2016 FLORY FORD FACC, ALI FACP CCDS Ot E78.4 OTHER HYPERLIPIDEMIA 09/04/2016 FLORY FORD FACC, ALI FACP CCDS Ot G47.30 SLEEP APNEA, UNSPECIFIED 09/04/2016 FLORY FORD FACC, ALI FACP CCDS Ot I10 ESSENTIAL (PRIMARY) HYPERTENSION 09/04/2016 FLORY FORD FACC, ALI FACP CCDS Ot I25.10 ATHSCL HEART DISEASE OF [place] CORONARY 09/04/2016 FLORY FORD FACC, ALI FACP CCDS Ot I65.23 OCCLUSION AND STENOSIS OF [place] 09/04/2016 FLORY FORD FACDerek, ALI FACP CCDS Ot R06.02 SHORTNESS OF BREATH 09/05/2016 FLORY FORD FACDerek, ALI FACP CCDS Ot E66.09 OTHER OBESITY DUE TO EXCESS CALORIES 09/05/2016 FLORY FORD FACDerek, ALI FACP CCDS Ot E78.4 OTHER HYPERLIPIDEMIA 09/05/2016 FLORY FORD FAC, ALI FACP CCDS Ot I10 ESSENTIAL (PRIMARY) HYPERTENSION 09/05/2016 FLORY FORD FACC, ALI FACP CCDS Ot I25.10 ATHSCL HEART DISEASE OF [place] CORONARY 09/05/2016 FLORY RAMIREZ, ALI FACP CCDS Ot I65.23 OCCLUSION AND STENOSIS OF [place] 09/05/2016 FLORY RAMIREZ, ALI FACP CCDS Ot R06.02 SHORTNESS OF BREATH 09/20/2016 Ot 285.9 ANEM IA NOS 09/20/2016 Ot 625.8 FEM GENITAL SYMPTOMS NEC 09/20/2016 Ot 627.1 POST MENOPAUSAL BLEEDING 09/20/2016 Ot V72.63 PRE -PROCEDURAL LABORATORY EXAMINATION 09/20/2016 Ot V72.81 [id number] CARDIOVASCULAR 09/20/2016 Ot V74.8 SCRE EN-BACTERIAL DIS NEC 09/20/2016 Ot 787.3 FLAT UL/ERUCTAT/GAS PAIN 09/20/2016 Ot 789.00 ABD OMINAL PAIN, UNSPECIFIED SITE 09/20/2016 Ot 793.82 INC ONCLUSIVE MAMMOGRAM 09/20/2016 Ot V76.12 OTH SCREEN MAMMO- MALIGN NEOPLASM OF [place] 09/20/2016 Ot 611.72 LUM P OR MASS IN BREAST 09/20/2016 Ot 610.0 ANA TARY CYST OF BREAST 09/20/2016 Ot 610.8 [place] GN MAMM DYSPLAS NEC 09/20/2016 Ot V58.69 [...] SOLITARY CYST OF BREAST 09/20/2016 SAMEER RICHTER SUPERVISOR CELL MAINTENANCE Ot 729.81 SWELLING OF LIMB 09/20/2016 SAMEER RICHTER SUPERVISOR CELL MAINTENANCE Ot 924.9 CONTUSION NOS 09/20/2016 SAMEER RICHTER SUPERVISOR CELL MAINTENANCE Ot E928.9 ACCIDENT NOS 09/20/2016 Ot V45.82 PER CUTANEOUS TRANSLUM CORON ANGIOPLASTY 09/20/2016 Ot V57.89 CINDY ABILITATION PROC NEC 09/20/2016 FLORY FORD FACC, ALI FACP CCDS Ot 250.00 DIAB BRETT WO COMPL, TYPE II OR UNSPEC TY 09/20/2016 FLORY FORD FACC, ALI FACP CCDS Ot 272.4 HYPERLIPIDEMIA NEC/NOS 09/20/2016 [...] RESPIRATORY ABNORM NEC 09/20/2016 FLORY FORD FACC, ALI FACP CCDS Ot 786.50 CHEST PAIN NOS 09/20/2016 MATILDE LAINEZ DO Ot 722.10 LUMBAR DISC DISPLACEMENT 09/20/2016 MATILDE LAINEZ DO Ot 724.00 SPINAL STENOSIS NOS 09/20/2016 MATILDE LAINEZ DO Ot V72.63 PRE-PROCEDURAL LABORATORY EXAMINATION 09/20/2016 MATILDE LAINEZ DO Ot V72.81 [id number] CARDIOVASCULAR 09/20/2016 MATILDE LAINEZ DO Ot V74 .8 SCREEN-BACTERIAL DIS NEC 09/20/2016 JOVANA GOODMAN POTATO SPOTTER Ot 785.0 TACHYCARDIA NOS 09/20/2016 JOVANA GOODMAN POTATO SPOTTER Ot 786.05 SHORTNESS OF BREATH 09/20/2016 JOVANA GOODMAN POTATO SPOTTER Ot 780.60 FEVER, UNSPECIFIED 09/20/2016 JOVANA GOODMAN POTATO SPOTTER Ot 780.79 OTH MALAISE FATIGUE 09/20/2016 JOVANA GOODMAN POTATO SPOTTER Ot V45.89 POSTSURGICAL STATES NEC 09/20/2016 TOM FORD, RADHA Menjivar Ot 285.9 ANEMIA NOS 09/20/2016 BAIMA, SAMEER L SUPERVISOR CELL MAINTENANCE Ot I73.9 PERIPHERAL VASCULAR DISEASE, UNSPECIFIED 09/20/2016 ROBER SAMEER Lozano SUPERVISOR CELL MAINTENANCE Ot I73.9 PERIPHERAL VASCULAR DISEASE, UNSPECIFIED 09/20/2016 NATHANIEL GRACE SUPERVISOR CELL MAINTENANCE Ot Z12.31 ENCNTR SCREEN MAMMOGRAM FOR MALIGNANT NE 09/20/2016 FLORY FORD FACC, ALI FACP CCDS Ot E66.09 OTHER OBESITY DUE TO EXCESS CALORIES 09/20/2016 FLORY FORD FACC, ALI FACP CCDS Ot E78.4 OTHER HYPERLIPIDEMIA 09/20/2016 FLORY FORD FACC, ALI FACP CCDS Ot I10 ESSENTIAL (PRIMARY) HYPERTENSION 09/20/2016 FLORY FORD FACC, ALI FACP CCDS Ot I25.10 ATHSCL HEART DISEASE OF [place] CORONARY 09/20/2016 FLORY FORD FACC, ALI FACP [...] CCDS Ot I25.10 ATHSCL HEART DISEASE OF [place] CORONARY 09/20/2016 FLORY FORD FACC, ALI FACP [...] CCDS Ot I25.10 ATHSCL HEART DISEASE OF [place] CORONARY 09/24/2016 FLORY FORD FACC, ALI FACP CCDS Ot I65.23 OCCLUSION AND STENOSIS OF [place] 09/24/2016 FLORY FORD FACC, ALI FACP CCDS Ot R06.02 SHORTNESS OF BREATH 09/24/2016 FIONA GARCIA DO Ot G47. 33 OBSTRUCTIVE SLEEP APNEA (ADULT) (PEDIATR 09/25/2016 FIONA GARCIA DO Ot G47. 33 OBSTRUCTIVE SLEEP APNEA (ADULT) (PEDIATR 09/26/2016 FLORY FORD FACC, ALI FACP CCDS Ot E66.09 OTHER OBESITY DUE TO EXCESS CALORIES 09/26/2016 FLORY FORD FACC, ALI FACP CCDS Ot E78.4 OTHER HYPERLIPIDEMIA 09/26/2016 FLORY FORD FACC, ALI FACP CCDS Ot I10 ESSENTIAL (PRIMARY) HYPERTENSION 09/26/2016 FLORY FORD FACC, ALI FACP CCDS Ot I25.10 ATHSCL HEART DISEASE OF [place] CORONARY 09/26/2016 FLORY FORD FACC, ALI FACP CCDS Ot I65.23 OCCLUSION AND STENOSIS OF [place] 09/26/2016 FLORY FORD FACC, ALI FACP CCDS Ot R06.02 SHORTNESS OF BREATH 10/02/2016 FLORY FORD FACC, ALI FACP CCDS Ot E66.09 OTHER OBESITY DUE TO EXCESS CALORIES 10/02/2016 FLORY FORD FACC, ALI FACP CCDS Ot E78.4 OTHER HYPERLIPIDEMIA 10/02/2016 FLORY FORD FACC, ALI FACP CCDS Ot I10 ESSENTIAL (PRIMARY) HYPERTENSION 10/02/2016 FLORY FORD FACC, ALI FACP CCDS Ot I25.10 ATHSCL HEART DISEASE OF [place] CORONARY 10/02/2016 FLORY FORD FACC, ALI FACP CCDS Ot I65.23 OCCLUSION AND STENOSIS OF [place] 10/02/2016 FLORY FORD FACC, CLARICE FACP CCDS Ot R06.02 SHORTNESS OF BREATH 10/02/2016 FLORY FORD FACC, ALI FACP CCDS Ot E66.09 OTHER OBESITY DUE TO EXCESS CALORIES 10/02/2016 FLORY FORD FACC, ALI FACP CCDS Ot E78.4 OTHER HYPERLIPIDEMIA 10/02/2016 FLORY FORD FACC, ALI FACP CCDS Ot G47.30 SLEEP APNEA, UNSPECIFIED 10/02/2016 FLORY FORD FACC, ALI FACP CCDS Ot I10 ESSENTIAL (PRIMARY) HYPERTENSION 10/02/2016 FLORY FORD FACC, ALI FACP CCDS Ot I25.10 ATHSCL HEART DISEASE OF [place] CORONARY 10/02/2016 FLORY FORD FACC, CLARICE FACP [...] E03.9 HYPOTHYROIDISM, UNSPECIFIED 06/27/2017 FLORY FORD FACC, ALI FACP CCDS Ot E66.9 OBESITY, UNSPECIFIED 06/27/2017 FLORY FORD FACC, ALI FACP CCDS Ot E78.5 HYPERLIPIDEMIA, UNSPECIFIED 06/27/2017 FLORY FORD FACC, ALI FACP CCDS Ot F41.9 ANXIETY DISORDER, UNSPECIFIED 06/27/2017 FLORY FORD FACC, ALI FACP CCDS Ot G47.33 OBSTRUCTIVE SLEEP APNEA (ADULT) (PEDIATR 06/27/2017 FLORY FORD FACC, ALI FACP CCDS Ot I10 ESSENTIAL (PRIMARY) HYPERTENSION 06/27/2017 FLORY FORD [facility], ALI FACP CCDS Ot I25.10 ATHSCL HEART DISEASE OF [place] CORONARY 06/27/2017 FLORY FORD FACC, ALI FACP CCDS Ot R00.2 PALPITATIONS 06/27/2017 FLORY FORD FACC, ALI FACP CCDS Ot R55 SYNCOPE AND COLLAPSE 06/27/2017 FLORY FORD [facility], ALI FACP CCDS Ot Z68.34 BODY MASS INDEX (BMI) 34.0-34.9, ADULT 06/27/2017 FLORY FORD FACC, ALI FACP CCDS Ot Z79.899 OTHER ASSISTED (CURRENT) DRUG THERAPY 06/27/2017 FLORY FORD [facility], ALI FACP CCDS Ot Z95.1 PRESENCE OF AORTOCORONARY BYPASS GRAFT 07/16/2017 FLORY FORD FACC, CLARICE FACP CCDS Ot E03.9 HYPOTHYROIDISM, UNSPECIFIED 07/16/2017 FLORY RAMIREZ, ALI FACP CCDS Ot E66.9 OBESITY, UNSPECIFIED 07/16/2017 FLORY FORD [facility], ALI FACP CCDS Ot E78.5 HYPERLIPIDEMIA, UNSPECIFIED 07/16/2017 FLORY FORD [facility], ALI FACP CCDS Ot F41.9 ANXIETY DISORDER, UNSPECIFIED 07/16/2017 FLORY FORD [facility], ALI FACP CCDS Ot G47.33 OBSTRUCTIVE SLEEP APNEA (ADULT) (PEDIATR 07/16/2017 FLORY FORD [facility], ALI FACP CCDS Ot I10 ESSENTIAL (PRIMARY) HYPERTENSION 07/16/2017 FLORY FORD [facility], ALI FACP CCDS Ot I25.10 ATHSCL HEART DISEASE OF [place] CORONARY 07/16/2017 FLORY FORD [facility], ALI FACP CCDS Ot R00.2 PALPITATIONS 07/16/2017 FLORY RAMIREZ, ALI FACP CCDS Ot R55 SYNCOPE AND COLLAPSE 07/16/2017 FLORY FORD [facility], ALI FACP CCDS Ot Z68.34 BODY MASS INDEX (BMI) 34.0-34.9, ADULT 07/16/2017 FLORY RAMIREZC, ALI FACP CCDS Ot Z79.899 OTHER IMPORT CLERK (CURRENT) DRUG THERAPY 07/16/2017 FLORY FORD FACC, ALI FACP CCDS Ot Z95.1 PRESENCE OF AORTOCORONARY BYPASS GRAFT 07/22/2017 FLORY FORD FACC, ALI FACP CCDS Ot E03.9 HYPOTHYROIDISM, UNSPECIFIED 07/22/2017 [...] CCDS Ot I25.10 ATHSCL HEART DISEASE OF [place] CORONARY 07/22/2017 FLORY FORD FACC, ALI FACP CCDS Ot R00.2 PALPITATIONS 07/22/2017 FLORY FORD FACC, ALI FACP CCDS Ot R55 SYNCOPE AND COLLAPSE 07/22/2017 FLORY FORD FACC, ALI FACP CCDS Ot Z68.34 BODY MASS INDEX (BMI) 34.0-34.9, ADULT 07/22/2017 FLORY FORD FACC, ALI FACP CCDS Ot Z79.899 OTHER ASSISTED (CURRENT) DRUG THERAPY 07/22/2017 FLORY FORD FACC, [...] GAIT AND MO 06/26/2018 ALEXANDER HENRIQUEZ Ot E11.9 TYPE 2 DIABETES MELLITUS [...] Ot 610.0 SOLITARY CYST OF BREAST 12/30/2018 SAMEER RICHTER SUPERVISOR CELL MAINTENANCE Ot 729.81 SWELLING OF LIMB 12/30/2018 SAMEER RICHTER SUPERVISOR CELL MAINTENANCE Ot 924.9 CONTUSION NOS 12/30/2018 SAMEER RICHTER SUPERVISOR CELL MAINTENANCE Ot E928.9 ACCIDENT NOS 12/30/2018 Ot V45.82 [...] 414.9 CHR ISCHEMIC HRT DIS NOS 12/30/2018 FLORY FORD FACC, ALI FACP CCDS Ot 715.90 OSTEOARTHROS NOS-UNSPEC 12/30/2018 FLORY FORD FACC, ALI FACP CCDS Ot 729.1 MYALGIA AND MYOSITIS NOS 12/30/2018 FLORY FORD FACC, ALI FACP CCDS Ot 780.4 DIZZINESS AND GIDDINESS 12/30/2018 FLORY FORD FACC, CLARICE RAMIREZP CCDS Ot 786.09 RESPIRATORY ABNORM NEC 12/30/2018 FLORY FORD FACC, CLARICE FACP CCDS Ot 786.50 CHEST PAIN NOS 12/30/2018 MATILDE LAINEZ DO Ot 722.10 LUMBAR DISC DISPLACEMENT 12/30/2018 MATILDE LAINEZ DO Ot 724.00 SPINAL STENOSIS NOS 12/30/2018 MATILDE LAINEZ DO Ot V72.63 PRE-PROCEDURAL LABORATORY EXAMINATION 12/30/2018 MATILDE LAINEZ DO Ot V72.81 [id number] CARDIOVASCULAR 12/30/2018 MATILDE LAINEZ DO Ot V74 .8 SCREEN-BACTERIAL DIS NEC 12/30/2018 JOVANA GOODMAN POTATO SPOTTER Ot 785.0 TACHYCARDIA NOS 12/30/2018 JOVANA GOODMAN POTATO SPOTTER Ot 786.05 SHORTNESS OF BREATH 12/30/2018 JOVANA GOODMAN POTATO SPOTTER Ot 780.60 FEVER, UNSPECIFIED 12/30/2018 JOVANA GOODMAN POTATO SPOTTER Ot 780.79 OTH MALAISE FATIGUE 12/30/2018 JOVANA GOODMAN POTATO SPOTTER Ot V45.89 POSTSURGICAL STATES NEC 12/30/2018 TOM FORD, RADHA Menjivar Ot 285.9 ANEMIA NOS 12/30/2018 SAMEER RICHTER SUPERVISOR CELL MAINTENANCE Ot I73.9 PERIPHERAL VASCULAR DISEASE, UNSPECIFIED 12/30/2018 SAMEER RICHTER SUPERVISOR CELL MAINTENANCE Ot I73.9 PERIPHERAL VASCULAR DISEASE, UNSPECIFIED 12/30/2018 NATHANIEL GRACE SUPERVISOR CELL MAINTENANCE Ot Z12.31 ENCNTR SCREEN MAMMOGRAM FOR MALIGNANT NE 12/30/2018 FLORY FORD FACC, CLARICE FACP CCDS Ot E66.09 OTHER OBESITY DUE TO EXCESS CALORIES 12/30/2018 FLORY FORD FACC, CLARICE FACP CCDS Ot E78.4 OTHER HYPERLIPIDEMIA 12/30/2018 FLORY FORD FACC, CLARICE FACP CCDS Ot I10 ESSENTIAL (PRIMARY) HYPERTENSION 12/30/2018 FLORY FORD FACC, CLARICE FACP CCDS Ot I25.10 ATHSCL HEART DISEASE OF [place] CORONARY 12/30/2018 FLORY FORD FACC, CLARICE FACP CCDS Ot I65.23 OCCLUSION AND STENOSIS OF BILATERAL [place] 12/30/2018 FLORY FORD FACC, CLARICE FACP CCDS Ot R06.02 SHORTNESS OF BREATH 12/30/2018 FLORY RAMIREZC, ALI FACP CCDS Ot E66.09 OTHER OBESITY DUE TO EXCESS CALORIES 12/30/2018 FLORY FORD FACC, ALI FACP CCDS Ot E78.4 OTHER HYPERLIPIDEMIA 12/30/2018 FLORY FORD FACC, ALI FACP CCDS Ot G47.30 SLEEP APNEA, UNSPECIFIED 12/30/2018 FLORY FORD FACC, ALI FACP CCDS Ot I10 ESSENTIAL (PRIMARY) HYPERTENSION 12/30/2018 FLORY FORD FACC, ALI FACP CCDS Ot I25.10 ATHSCL HEART DISEASE OF [place] CORONARY 12/30/2018 FLORY FORD FACC, ALI FACP [...] SHORTNESS OF BREATH 12/30/2018 FLORY FORD FACC, ALI FACP CCDS Ot E03.9 HYPOTHYROIDISM, UNSPECIFIED 12/30/2018 FLORY FORD FACC, ALI FACP CCDS Ot E66.9 OBESITY, UNSPECIFIED 12/30/2018 FLORY FORD FACC, ALI FACP CCDS Ot E78.5 HYPERLIPIDEMIA, UNSPECIFIED 12/30/2018 FLORY FORD FACC, ALI FACP CCDS Ot F41.9 ANXIETY DISORDER, UNSPECIFIED 12/30/2018 FLORY FORD FACC, ALI FACP CCDS Ot G47.33 OBSTRUCTIVE SLEEP APNEA (ADULT) (PEDIATR 12/30/2018 FLORY FORD FACC, ALI FACP CCDS Ot I10 ESSENTIAL (PRIMARY) HYPERTENSION 12/30/2018 FLORY FORD FACC, ALI FACP CCDS Ot I25.10 ATHSCL HEART DISEASE OF [place] CORONARY 12/30/2018 FLORY FORD FACC, ALI FACP CCDS Ot R00.2 PALPITATIONS 12/30/2018 FLORY FORD FACC, ALI FACP CCDS Ot R55 SYNCOPE AND COLLAPSE 12/30/2018 FLORY FORD FACC, CLARICE MARTINEZ CCDS Ot Z68.34 BODY MASS INDEX (BMI) 34.0-34.9, ADULT 12/30/2018 FLORY FORD FACC, CLARICE [facility] CCD[facility] Ot Z79.899 OTHER IMPORT CLERK (CURRENT) DRUG THERAPY 12/30/2018 FLORY FORD FACC, CLARICE [facility] Ot Z95.1 PRESENCE OF AORTOCORONARY BYPASS GRAFT 12/30/2018 ASH FRIEND DO Marta Ot M54.16 RADICULOPATHY, LUMBAR REGION 12/30/2018 HAILEY TILLMAN POTATO SPOTTER Ot Z12.31 ENCNTR SCREEN MAMMOGRAM FOR MALIGNANT NE 12/30/2018 HAILEY TILLMAN POTATO SPOTTER Ot Z12.31 ENCNTR SCREEN MAMMOGRAM FOR MALIGNANT NE 01/19/2019 HAILEY TILLMAN POTATO SPOTTER Ot Z12.31 ENCNTR SCREEN MAMMOGRAM FOR MALIGNANT NE 11/08/2019 BAIKACY, SAMEER L SUPERVISOR CELL MAINTENANCE Ot E78.5 HYPERLIPIDEMIA, UNSPECIFIED 11/08/2019 BAIMA, SAMEER L SUPERVISOR CELL MAINTENANCE Ot I07.1 RHEUMATIC TRICUSPID INSUFFICIENCY 11/08/2019 BAIMA, SAMEER L SUPERVISOR CELL MAINTENANCE Ot I 10 ESSENTIAL (PRIMARY) HYPERTENSION 11/08/2019 BAIMA, SAMEER L SUPERVISOR CELL MAINTENANCE Ot I25.10 ATHSCL HEART DISEASE OF [place] CORONARY 11/08/2019 BAIMA, SAMEER L SUPERVISOR CELL MAINTENANCE Ot R06.09 OTHER FORMS OF DYSPNEA 11/08/2019 BAIMA, SAMEER L SUPERVISOR CELL MAINTENANCE Ot R07.9 CHEST PAIN, UNSPECIFIED 11/26/2019 BAIMA, SAMEER L SUPERVISOR CELL MAINTENANCE Ot E78.5 HYPERLIPIDEMIA, UNSPECIFIED 11/26/2019 BAIMA, SAMEER L SUPERVISOR CELL MAINTENANCE Ot I07.1 RHEUMATIC TRICUSPID INSUFFICIENCY 11/26/2019 BAIMA, SAMEER L SUPERVISOR CELL MAINTENANCE Ot I 10 ESSENTIAL (PRIMARY) HYPERTENSION 11/26/2019 BAIMA, SAMEER L SUPERVISOR CELL MAINTENANCE Ot I25.10 ATHSCL HEART DISEASE OF [place] CORONARY 11/26/2019 BAIMA, SAMEER L SUPERVISOR CELL MAINTENANCE Ot R06.09 OTHER FORMS OF DYSPNEA 11/26/2019 BAIMA, SAMEER L SUPERVISOR CELL MAINTENANCE Ot R07.9 CHEST PAIN, UNSPECIFIED 12/14/2019 FLORY FORD FACC, CLARICE RAMIREZP CCDS Ot 250.00 DIAB BRETT WO COMPL, TYPE II OR UNSPEC TY 12/14/2019 FLORY FORD [facility], ALI FACP CCDS Ot 272.4 HYPERLIPIDEMIA NEC/NOS 12/14/2019 FLORY FORD [facility], ALI FACP CCDS Ot 300.00 ANXIETY STATE NOS 12/14/2019 FLORY FORD [facility], ALI FACP CCDS Ot 401.9 HYPERTENSION NOS 12/14/2019 FLORY FORD [facility], ALI FACP CCDS Ot 414.9 CHR ISCHEMIC HRT DIS NOS 12/14/2019 FLORY FORD [facility], ALI FACP CCDS Ot 715.90 OSTEOARTHROS NOS-UNSPEC 12/14/2019 FLORY FORD [facility], ALI FACP CCDS Ot 729.1 MYALGIA AND MYOSITIS NOS 12/14/2019 FLORY FORD [facility], ALI FACP CCDS Ot 780.4 DIZZINESS AND GIDDINESS 12/14/2019 FLORY FORD [facility], ALI FACP CCDS Ot 786.09 RESPIRATORY ABNORM NEC 12/14/2019 FLORY FORD [facility], ALI FACP CCDS Ot 786.50 CHEST PAIN NOS 12/14/2019 MATILDE LAINEZ DO Ot 722.10 LUMBAR DISC DISPLACEMENT 12/14/2019 MATILDE LAINEZ DO Ot 724.00 SPINAL STENOSIS NOS 12/14/2019 MATILDE LAINEZ DO Ot V72.63 PRE-PROCEDURAL LABORATORY EXAMINATION 12/14/2019 MATILDE LAINEZ DO Ot V72.81 QFLR-EAS-SCCFCHZLI CARDIOVASCULAR 12/14/2019 MATILDE LAINEZ DO Ot V74 .8 SCREEN-BACTERIAL DIS NEC 12/14/2019 JOVANA GOODMAN [employer] Ot 785.0 TACHYCARDIA NOS 12/14/2019 JOVANA GOODMAN [employer] Ot 786.05 SHORTNESS OF BREATH 12/14/2019 JOVANA GOODMAN [employer] Ot 780.60 FEVER, UNSPECIFIED 12/14/2019 JOVANA GOODMAN [employer] Ot 780.79 OTH MALAISE FATIGUE 12/14/2019 JOVANA GOODMAN [employer]TER Ot V45.89 POSTSURGICAL STATES NEC 12/14/2019 TOM FORD, RADHA Menjivar Ot 285.9 ANEMIA NOS 12/14/2019 SAMEER RICHTER SUPERVISOR CELL MAINTENANCE Ot I73.9 PERIPHERAL VASCULAR DISEASE, UNSPECIFIED 12/14/2019 SAMEER RICHTER SUPERVISOR CELL MAINTENANCE Ot I73.9 PERIPHERAL VASCULAR DISEASE, UNSPECIFIED 12/14/2019 REENA GRACEIE M SUPERVISOR CELL MAINTENANCE Ot Z12.31 ENCNTR SCREEN MAMMOGRAM FOR MALIGNANT NE 12/14/2019 FLORY MD [facility], ALI FACP CCDS Ot E66.09 OTHER OBESITY DUE TO EXCESS CALORIES 12/14/2019 FLORY [facility], ALI FACP CCDS Ot E78.4 OTHER HYPERLIPIDEMIA 12/14/2019 FLORY MD [facility], ALI FACP CCDS Ot I10 ESSENTIAL (PRIMARY) HYPERTENSION 12/14/2019 FLORY [facility], ALI FACP CCDS Ot I25.10 ATHSCL HEART DISEASE OF [place] CORONARY 12/14/2019 FLORY [facility], ALI FACP CCDS Ot I65.23 OCCLUSION AND STENOSIS OF BILATERAL [place] 12/14/2019 [facility], ALI FACP CCDS Ot R06.02 SHORTNESS OF BREATH 12/14/2019 FLORY FORD [facility], ALI FACP CCDS Ot E66.09 OTHER OBESITY DUE TO EXCESS CALORIES 12/14/2019 FLORY [facility], ALI FACP CCDS Ot E78.4 OTHER HYPERLIPIDEMIA 12/14/2019 FLORY FORD [facility], ALI FACP CCDS Ot G47.30 SLEEP APNEA, UNSPECIFIED 12/14/2019 FLORY [facility], [place]I FACP CCDS Ot I10 ESSENTIAL (PRIMARY) HYPERTENSION 12/14/2019 [facility], ALI FACP CCDS Ot I25.10 ATHSCL HEART DISEASE OF [place] CORONARY 12/14/2019 FLORY FORD [facility], [place]I FACP CCDS Ot I65.23 OCCLUSION AND STENOSIS OF BILATERAL [place] 12/14/2019 [facility], [place] FACP CCDS Ot R06.02 SHORTNESS OF BREATH 12/14/2019 FIONA GARCIA DO Ot E66. 09 OTHER OBESITY DUE TO EXCESS CALORIES 12/14/2019 FIONA GARCIA DO Ot E78. 4 OTHER HYPERLIPIDEMIA 12/14/2019 FIONA GARCIA DO Ot F41. 9 ANXIETY DISORDER, UNSPECIFIED 12/14/2019 FIONA GARCIA DO Ot R06. 02 SHORTNESS OF BREATH 12/14/2019 FLORY FORD [facility], ALI FACP CCDS Ot E03.9 HYPOTHYROIDISM, UNSPECIFIED 12/14/2019 FLORY FORD [facility], [place]I FACP CCDS Ot E66.9 OBESITY, UNSPECIFIED 12/14/2019 FLORY FORD [facility], [facility] FACP CCDS Ot E78.5 HYPERLIPIDEMIA, UNSPECIFIED 12/14/2019 FLORY [facility], [place] FACP CCDS Ot F41.9 ANXIETY DISORDER, UNSPECIFIED 12/14/2019 [facility], [place] FACP CCDS Ot G47.33 OBSTRUCTIVE SLEEP APNEA (ADULT) (PEDIATR 12/14/2019 FLORY [facility], [place] FACP CCDS Ot I10 ESSENTIAL (PRIMARY) HYPERTENSION 12/14/2019 [facility], [place] FACP CCDS Ot I25.10 ATHSCL HEART DISEASE OF [place] CORONARY 12/14/2019 [facility] [place] FACP CCDS Ot R00.2 PALPITATIONS 12/14/2019 FLORY [facility], [place] FACP CCDS Ot R55 SYNCOPE AND COLLAPSE 12/14/2019 [facility], [place] FACP CCDS Ot Z68.34 BODY MASS INDEX (BMI) 34.0-34.9, ADULT 12/14/2019 FLORY MD [facility], [place] FACP CCDS Ot Z79.899 OTHER IMPORT CLERK (CURRENT) DRUG THERAPY 12/14/2019 [facility] [place] FACP CCDS Ot Z95.1 PRESENCE OF AORTOCORONARY BYPASS GRAFT 12/14/2019 ASH FRIEND DO Ot M54.16 RADICULOPATHY, LUMBAR REGION 12/14/2019 HAILEY TILLMAN APRN Ot Z12.31 ENCNTR SCREEN MAMMOGRAM FOR MALIGNANT NE 12/14/2019 BAIMA, SAMEER L SUPERVISOR CELL MAINTENANCE Ot E78.5 HYPERLIPIDEMIA, UNSPECIFIED 12/14/2019 BAIMA, SAMEER L SUPERVISOR CELL MAINTENANCE Ot I07.1 RHEUMATIC TRICUSPID INSUFFICIENCY 12/14/2019 BAIMA, SAMEER L SUPERVISOR CELL MAINTENANCE Ot I 10 ESSENTIAL (PRIMARY) HYPERTENSION 12/14/2019 BAIMA, SAMEER L SUPERVISOR CELL MAINTENANCE Ot I25.10 ATHSCL HEART DISEASE OF [place] CORONARY 12/14/2019 BAIMA, SAMEER L SUPERVISOR CELL MAINTENANCE Ot R06.09 OTHER FORMS OF DYSPNEA 12/14/2019 BAIMA, SAMEER L SUPERVISOR CELL MAINTENANCE Ot R07.9 CHEST PAIN, UNSPECIFIED 12/15/2019 BAIMA, SAMEER L SUPERVISOR CELL MAINTENANCE Ot E78.5 HYPERLIPIDEMIA, UNSPECIFIED 12/15/2019 BAIMA, SAMEER L SUPERVISOR CELL MAINTENANCE Ot I 10 ESSENTIAL (PRIMARY) HYPERTENSION 12/15/2019 BAIMA, SAMEER L SUPERVISOR CELL MAINTENANCE Ot I25.10 ATHSCL HEART DISEASE OF [place] CORONARY 12/15/2019 BAIMA, SAMEER L SUPERVISOR CELL MAINTENANCE Ot R06.09 OTHER FORMS OF DYSPNEA 12/15/2019 BAIMA, SAMEER L SUPERVISOR CELL MAINTENANCE Ot R07.89 OTHER CHEST PAIN 12/20/2019 BAIMA, SAMEER L SUPERVISOR CELL MAINTENANCE Ot E78.5 HYPERLIPIDEMIA, UNSPECIFIED 12/20/2019 BAIMA, SAMEER L SUPERVISOR CELL MAINTENANCE Ot I 10 ESSENTIAL (PRIMARY) HYPERTENSION 12/20/2019 BAIMA, SAMEER L SUPERVISOR CELL MAINTENANCE Ot I25.10 ATHSCL HEART DISEASE OF [place] CORONARY 12/20/2019 BAIMA, SAMEER L SUPERVISOR CELL MAINTENANCE Ot R06.09 OTHER FORMS OF DYSPNEA 12/20/2019 BAIMA, SAMEER L SUPERVISOR CELL MAINTENANCE Ot R07.89 OTHER CHEST PAIN 01/11/2020 BAIMA, SAMEER L SUPERVISOR CELL MAINTENANCE Ot E78.5 HYPERLIPIDEMIA, UNSPECIFIED 01/11/2020 BAIMA, SAMEER L SUPERVISOR CELL MAINTENANCE Ot I 10 ESSENTIAL (PRIMARY) HYPERTENSION 01/11/2020 BAIMA, SAMEER L SUPERVISOR CELL MAINTENANCE Ot I25.10 ATHSCL HEART DISEASE OF [place] CORONARY 01/11/2020 BAIMA, SAMEER L SUPERVISOR CELL MAINTENANCE Ot R06.09 OTHER FORMS OF DYSPNEA 01/11/2020 BAIMA, SAMEER L SUPERVISOR CELL MAINTENANCE Ot R07.89 OTHER CHEST PAIN 01/26/2020 BAIMA, SAMEER L SUPERVISOR CELL MAINTENANCE Ot I70.213 ATHSCL [place] ARTERIES OF EXTRM W [facility] 01/27/2020 BAIMA, SAMEER L SUPERVISOR CELL MAINTENANCE Ot I70.213 ATHSCL [place] ARTERIES OF EXTRM W [facility] 02/18/2020 BAIMA, SAMEER L SUPERVISOR CELL MAINTENANCE Ot I70.213 ATHSCL [place] ARTERIES OF EXTRM [facility] 02/28/2020 W E03.4 Atro phy of thyroid (acquired) [facility] 02/28/2020 W E11.42 Typ e 2 diabetes mellitus with diabetic polyneuropathy [facility] 02/28/2020 W I10 Essent ial (primary) hypertension [facility] 04/07/2020 W R60.0 Loca lized edema Hailey Tillman 04/11/2020 W R60.0 Loca lized edema Hailey Tillman 05/26/2020 DEBBIE VIDAL MD L Ot H26 .9 UNSPECIFIED CATARACT 05/31/2020 MARCY FORD, DEBBIE Lozano Ot E03 .9 HYPOTHYROIDISM, UNSPECIFIED 05/31/2020 MARCY FORD, DEBBIE Lozano Ot E11.36 TYPE 2 DIABETES MELLITUS WITH DIABETIC C 05/31/2020 MARCY FORD, DEBBIE Lozano Ot F41 .9 ANXIETY DISORDER, UNSPECIFIED 05/31/2020 DEBBIE VIDAL MD Ot H25.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, RIGHT EYE 05/31/2020 DEBBIE VIDAL MD Ot H40 .9 UNSPECIFIED GLAUCOMA 05/31/2020 MARCY FORD, DEBBIE Lozano Ot I11 .9 HYPERTENSIVE HEART DISEASE WITHOUT HEART 05/31/2020 DEBBIE VIDAL MD Ot M19.90 UNSPECIFIED OSTEOARTHRITIS, UNSPECIFIED 05/31/2020 DEBBIE VIDAL MD Ot Z79.899 OTHER IMPORT CLERK (CURRENT) DRUG THERAPY 05/31/2020 DEBBIE VIDAL MD Ot Z88 .0 ALLERGY STATUS TO PENICILLIN 05/31/2020 DEBBIE VIDAL MD Ot Z88 .8 ALLERGY STATUS TO OTH DRUG/MEDS/BIOL SUB 05/31/2020 DEBBIE VIDAL MD Ot Z90.710 ACQUIRED ABSENCE OF BOTH CERVIX AND UTER 05/31/2020 DEBBIE VIDAL MD Ot Z95 .5 PRESENCE OF CORONARY ANGIOPLASTY IMPLANT Procedures Code Description Performed By Per formed On 77.79 EXCI SE BONE FOR GFT NEC 05/29/2015 80.51 EXCI NERI INTERVERT DISC 05/29/2015 81.06 LUMB AR LUMBOSACRAL FUSION OF ANTERIOR 05/29/2015 81.07 LUMB AR LUMBOSACRAL FUSION OF POSTERIOR 05/29/2015 81.62 FUSI ON/REFUS OF 2-3 VERTEBRAE 05/29/2015 84.51 INSE RTION OF INTERBODY SPINAL FUSION DEV 05/29/2015 Results Test Result Range Coronavirus SARS-CoV-2 SO 2019 - 0 08:40 Coronavirus Ab [Units/volume] in Serum Negative Negative Encounters ACCT No. Visit Date/Time Discharge Status Pt. Type Provider Facility Loc./Unit Complaint [id number] 08/07/2017 03:02:24 08/07/2017 23:59:5 9 CLS Outpatient [id number] 02/28/2020 10:43:00 Document Registration [id number] 05/30/2020 05:45:00 15:00:00 DIS Outpatient DEBIBE VIDAL MD [facility] PREOP CATARACT LEFT EYE [id number] 05/26/2020 07:57:00 23:59:59 CLS Outpatient DEBBIE VIDAL MD [facility] SDC CATARACT RIGHT EYE [id number] 05/23/2020 06:28:00 13:47:00 DIS Outpatient DEBBIE VIDAL MD [facility] PREOP CATARACT RIGHT EYE [id number] 01/27/2020 14:35:00 23:59:59 CLS Outpatient BAIMA SAMEER L SUPERVISOR CELL MAINTENANCE [facility] RAD ATHEROSCLEROSIS OF [place] ARTERIES [id number] 12/14/2019 07:33:00 23:59:59 CLS Outpatient BAIMA, SAMEER L SUPERVISOR CELL MAINTENANCE [facility] CARD CAD [id number] 11/05/2019 13:58:00 23:59:59 CLS Outpatient BAIMA, SAMEER L SUPERVISOR CELL MAINTENANCE [facility] CARD CAD, OTHER CHES T PAIN [id number] 10/11/2019 12:00:00 019 23:59:59 CLS Preadmit BAIMA, SAMEER L SUPERVISOR CELL MAINTENANCE [facility] CARD CAD, OTHER CHEST PAIN [id number] 12/30/2018 09:54:00 019 23:59:59 CLS Outpatient HAILEY TILLMAN APRN [facility] RAD SCREENING [id number] 06/16/2018 00:10:00 018 23:59:59 CLS Outpatient ALEXANDER HENRIQUEZ [facility] REHAB BALANCE AND GAIT DEFICI T [id number] 06/12/2018 14:25:00 018 00:01:00 DIS Outpatient ALEXANDER HENRIQUEZ [facility] REHAB BALANCE AND GAIT DEFICI T [id number] 03/05/2018 13:39:00 018 23:59:59 CLS Outpatient ASH FRIEND DO [facility] CARD M54.16 LUMBAR RADICULOPATHY [id number] 06/17/2017 08:35:00 017 23:59:59 CLS Outpatient FLORY FORD FACC, CLARICE MARTINEZ CC DS [facility] CATH DM2,HTN,HL [id number] 09/24/2016 14:00:00 016 14:52:00 DIS Outpatient FIONA GARCIA DO [facility] SLEEP SNORING, EDS, OBESITY, CAD, HPN [id number] 09/20/2016 14:57:00 23:59:59 CLS Outpatient FIONA GARCIA DO [facility] RT SOB,OBESITY,ANXIETY [id number] 09/04/2016 12:55:00 016 23:59:59 CLS Outpatient FLORY FORD FACC, CLARICE RAMIREZP CC DS [facility] CARD SOB,HLP,HTN ,CAD [id number] 09/03/2016 07:36:00 016 23:59:59 CLS Outpatient FLORY FORD FACC, CLARICE MARTINEZ CC DS [facility] CARD SOB,HLP,HTN ,CAD [id number] 07/09/2016 08:57:00 016 23:59:59 CLS Outpatient NATHANIEL GRACE SUPERVISOR CELL MAINTENANCE [facility] RAD SCREENING [id number] 02/22/2016 12:56:00 016 23:59:59 CLS Outpatient SAMEER RICHTER SUPERVISOR CELL MAINTENANCE [facility] RAD CLAUDICATION [id number] 02/08/2016 13:30:00 016 23:59:59 CLS Outpatient SAMEER RICHTER SUPERVISOR CELL MAINTENANCE [facility] RAD CLAUDICATION [id number] 07/27/2015 16:10:00 015 23:59:59 CLS Outpatient RADHA SANTOS MD [facility] HH LOW HEMOGLOBIN [id number] 06/23/2015 16:22:00 015 23:59:59 CLS Outpatient JOVANA GOODMAN P[employer]AT[employer]TER [facility] LAB ELEVATED TEMP,FATIGUE, RECENT BACK SURGERY [id number] 06/21/2015 11:28:00 015 23:59:59 CLS Outpatient JOVANA GOODMAN [employer]TER [facility] RAD SOB,TACHYCARDIA [id number] 06/02/2015 10:05:00 015 13:10:00 DIS Inpatient CHEY MORILLO MD [facility] IRF STENOSIS [id number] 05/29/2015 07:54:00 015 10:05:00 DIS Inpatient MATILDE LAINEZ DO [facility] SURGICAL STENOSIS [id number] 05/15/2015 08:02:00 015 23:59:59 CLS Outpatient MATILDE LAINEZ DO [facility] PREOP STENOSIS [id number] 04/30/2015 09:03:00 015 10:38:00 DIS Emergency YUNI EVANS MD [facility] ER BACK PAIN [id number] 04/18/2015 13:18:00 015 23:59:59 CLS Outpatient MATILDE LAINEZ DO [facility] RAD LUMBAR RADICULOPATHY [id number] 03/10/2015 14:10:00 015 23:59:59 CLS Outpatient CLARICE RUTH MD, FACC, FACP CC DS [facility] RT CAD ANXIETY CHEST PAIN DIABETES DIZZINESS [id number] 04/22/2014 11:58:00 014 00:01:00 DIS Outpatient CLARICE RUTH MD, FACC, FACP CC DS [facility] CR STENT [id number] 05/10/2014 14:16:00 014 23:59:59 CLS Outpatient [id number] 01/21/2014 12:50:00 014 23:59:59 CLS Outpatient SAMEER RICHTER [facility] RAD LEG SWELLING AN D BRUISING [id number] 01/11/2014 09:44:00 014 12:00:00 DIS Outpatient FLORY FORD FACC, CLARICE RAMIREZP CC DS [facility] CATH CP,CAD,DIAB ETES, HLP [id number] 11/19/2013 10:06:00 014 23:59:59 CLS Outpatient RADHA SANTOS MD [facility] RAD BILATERAL BREAST PAIN, HX BREAST BX [id number] 11/11/2013 12:59:00 013 23:59:59 CLS Outpatient MATILDE LAINEZ DO [facility] RAD LUMBAR RADICULOPATHY [id number] 10/08/2013 11:15:00 013 15:15:00 DIS Outpatient MATILDE LAINEZ DO [facility] REHAB LUMBAR STENOSIS [id number] 06/02/2020 10:45:00 P EN Preadmit DEBBIE VIDAL MD [facility] SDC CATARACT LEFT EYE [id number] 02/08/2016 13:30:00 Document Registration [id number] 05/23/2014 09:00:00 Document Registration [id number] 12/24/2012 07:58:00 Document Registration [id number] 10/01/2012 15:39:00 Document Registration [id number] 07/06/2012 08:06:00 Document Registration [id number] 07/03/2012 08:09:00 Document Registration [id number] 03/03/2012 08:18:00 Document Registration [id number] 03/02/2012 08:59:00 Document Registration [id number] 03/02/2012 08:38:00 Document Registration [id number] 02/25/2012 14:36:00 Document Registration [id number] 02/13/2012 10:09:00 Document Registration [id number] 05/27/2011 05:49:00 Document Registration [id number] 05/23/2011 11:55:00 Document Registration [id number] 12/14/2010 13:04:00 Document Registration [id number] 09/28/2010 11:32:00 Document Registration [id number] 09/14/2010 09:00:00 Document Registration [id number] 09/12/2010 11:41:00 Document Registration
--- NOTE | 2020-06-06 07:15 | Anesthesia-General Post-Op ---
MAC Patient Condition Mental Status/LOC: Same as Preop Cardiovascular: Satisfactory Nausea/Vomiting: Absent Respiratory: Satisfactory Pain: Controlled Complications: Absent Post Op Complications Complications None Follow Up Care/Instructions Patient Instructions None needed. Anesthesiology Discharge Order Discharge Order Patient is doing well, no complaints, stable vital signs, no apparent adverse anesthesia problems. No complications reported per nursing. JAZMIN FRAZIER CRNA Jun 06, 2020 07:15
== END 2020-06-02 10:05 | disposition home or self-care (01) ==
LOC: SDC 08:15
PROVIDERS: ATTEND Specialist
DX: E11.36 Type 2 diabetes mellitus with diabetic cataract (principal); H25.12 Age-related nuclear cataract, left eye; I11.9 Hypertensive heart disease without heart failure; F41.9 Anxiety disorder, unspecified; E03.9 Hypothyroidism, unspecified; Z95.5 Presence of coronary angioplasty implant and graft; E78.5 Hyperlipidemia, unspecified; M06.9 Rheumatoid arthritis, unspecified; I25.10 Atherosclerotic heart disease of native coronary artery without angina pectoris; Z79.82 Long term (current) use of aspirin; Z79.899 Other long term (current) drug therapy; Z79.890 Hormone replacement therapy; Z88.0 Allergy status to penicillin; Z79.01 Long term (current) use of anticoagulants
CPT/HCPCS: 66984; V2632

== ENCOUNTER → 2022-03-12 | Outpatient (CLI) | payer MEDICARE, BC ==
[~2022-03-12] VITALS: Ht 165 cm; Wt 85.0 kg
[~2022-03-12] MED LIST changes: +CYAN2000 PO; +REGADENOSON 0.4 MG/5 ML SYR (LEXISCAN) IV ONE; -[UNRECOGNIZED DRUG - CODE] PO
[2022-03-12] MEDS: CATHETER FLUSH 10 ML SYR IVP PRN ×2 (11:45→13:04)
[2022-03-12 13:03] VITALS: BP 188/82
--- NOTE | 2022-03-13 15:40 | STRESS TEST ---
DATE OF SERVICE: 03/12/2022 RESTING AND POST REGADENOSON TECHNETIUM-99M TETROFOSMIN SPECT CT IMAGING ORDERING PHYSICIAN: Nataly Goodwin APRN. PRIMARY PHYSICIAN: Dr. Ott. CLINICAL DIAGNOSIS: Chest discomfort. Baseline images were carried out after injection of 10.68 mCi of technetium-99m Tetrofosmin. This was followed by 0.4 mg Regadenoson and 32 mCi of technetium-99m Tetrofosmin for stress imaging. The electrocardiogram showed sinus rhythm at baseline. It did not change significantly with the Regadenoson infusion. Review of images at rest and following stress indicates a minimal anterolateral perfusion defect that appears transient. Gated images show normal global left ventricular systolic function with normal regional wall motion. Left ventricular ejection fraction is calculated to be 75%. CONCLUSIONS: 1. This study is indicative of a minimal amount of anterolateral ischemia. 2. Normal regional wall motion. 3. Normal global left ventricular systolic function with a calculated ejection fraction of 75%. Job ID: [id number] DocumentID: [id number] Dictated Date: 03/13/2022 13:16:16 [employer] Date: 03/13/2022 15:40:21 Dictated By: CLARICE RUTH MD, MA, FACP, FACC,
== END ==
LOC: CARD 11:30
PROVIDERS: ATTEND Nurse Practitioner Family
DX: R07.89 Other chest pain (principal); R06.09 Other forms of dyspnea
CPT/HCPCS: 78452; 93017; 93306; A9502

== ENCOUNTER → 2022-07-17 | Outpatient (RCR) | payer MEDICARE, BC ==
[~2022-07-17] MED LIST changes: -REGADENOSON 0.4 MG/5 ML SYR (LEXISCAN) IV ONE
== END | disposition home or self-care (01) ==
PROVIDERS: ATTEND Nurse Practitioner Family
DX: R53.1 Weakness (principal); R26.81 Unsteadiness on feet

== ENCOUNTER 2022-08-14 13:30 | Outpatient (RCR) | payer MEDICARE, BC | END 2022-08-16 | disposition home or self-care (01) | PROVIDERS: ATTEND Nurse Practitioner Family | DX: R53.1 Weakness (principal); R26.81 Unsteadiness on feet; E11.9 Type 2 diabetes mellitus without complications; E03.9 Hypothyroidism, unspecified; Z95.5 Presence of coronary angioplasty implant and graft; Z95.1 Presence of aortocoronary bypass graft ==

== ENCOUNTER 2022-08-21 11:15 | Outpatient (RCR) | payer MEDICARE, BC | END 2022-08-21 14:15 | disposition home or self-care (01) | PROVIDERS: ATTEND Nurse Practitioner Family | DX: R53.1 Weakness (principal); R26.81 Unsteadiness on feet; E11.9 Type 2 diabetes mellitus without complications; E03.9 Hypothyroidism, unspecified ==

== ENCOUNTER → 2023-02-19 | Outpatient (CLI) | payer MEDICARE, BC ==
--- NOTE | 2023-02-19 19:16 | Diagnostic Imaging Report ---
INDICATION: Bilateral breast pain. COMPARISON: Prior mammograms 12/30/2018 and 07/09/2016. EXAMINATION: 2D and 3D bilateral diagnostic mammography was performed with CAD. The current study was also evaluated with a Computer Aided Detection (CAD) system. FINDINGS: Both breasts are primarily involutional. There are scattered benign calcifications in both breasts. No dominant mass or malignant-appearing microcalcifications are seen. Monitoring device overlies the left breast. Axillae are unremarkable. IMPRESSION: No mammographic features suspicious for malignancy are identified. ACR BI-RADS Category 2: Benign findings. Result letter will be mailed to the patient. Note: At least 10% of breast cancer is not imaged by mammography. Dictated by: Dictated on workstation # [id number]
== END ==
LOC: RAD 13:45
PROVIDERS: ATTEND Family Medicine
DX: N64.9 Disorder of breast, unspecified (principal)
CPT/HCPCS: 77066; G0279; 77062

== ENCOUNTER 2023-08-27 16:25 | Emergency (ER) | payer MEDICARE, BC ==
[2023-08-27 16:32] VITALS: BP 148/86
[2023-08-27] MEDS ORDERED: ASPIRIN 81 MG CHEWABLE TABLET PO ONE (16:45)
[2023-08-27 16:56] LABS: BASOPHILS % (AUTO) 0 % (0-10); EOSINOPHILS # (AUTO) 0.1 10^3/uL (0.0-0.3); EOSINOPHILS % (AUTO) 2 % (0-10); HEMATOCRIT 36 % (35-52); HEMOGLOBIN 11.7 g/dL (11.5-16.0); LYMPHOCYTES # (AUTO) 2.4 10^3/uL (1.0-4.0); LYMPHOCYTES % (AUTO) 31 % (12-44); MEAN CORPUSCULAR HEMOGLOBIN 29 pg (25-34); MEAN CORPUSCULAR HGB CONC 33 g/dL (32-36); MEAN CORPUSCULAR VOLUME 89 fL (80-99); MEAN PLATELET VOLUME 9.7 fL (9.0-12.2); MONOCYTES # (AUTO) 0.7 10^3/uL (0.0-1.0); MONOCYTES % (AUTO) 9 % (0-12); NEUTROPHILS # (AUTO) 4.3 10^3/uL (1.8-7.8); NEUTROPHILS % (AUTO) 57 % (42-75); PLATELET COUNT 279 10^3/uL (130-400); WHITE BLOOD COUNT 7.6 10^3/uL (4.3-11.0)
--- NOTE | 2023-08-27 17:00 | ED Chest Pain ---
General Chief Complaint: Chest Pain Stated Complaint: CHEST PAIN AND PAIN IN BOTH UPPER ARMS Nursing Triage Note: PT AMB TO [facility] 8 WITH C/O CP ONGOING FOR 6 WEEKS, WORSENING PAIN TODAY. PT ALSO STATES SHE FELL LAST FRIDAY Source: patient Exam Limitations: no limitations (MIKAYLA COLE) History of Present Illness Date Seen by Provider: Aug 27, 2023 Time Seen by Provider: 16:58 Initial Comments Patient is a 78-year-old female with a history of coronary artery disease, hypertension, diabetes who presents to ED with chest pain. Chest pain is loc ated to the left and right side of chest. Has been ongoing intermittently over the past 2 months. Seems to be worse with exertion. She reports feeling short of breath. Increased fatigue. She states when she goes to get groceries she feels winded and tired when she returns home. She denies any nausea vomiting or diarrhea. She does take Xarelto. Denies of any lower leg swelling or bruising or redness. No recent travels or surgeries. She does report some mild nasal congestion and cough but does have a history of allergies. She denies fever, chills, bodyaches, headache, dizziness. No current pain at this time while resting. Patient does follow Dr. Cisse (MIKAYLA COLE) Allergies and Home Medications Allergies Coded Allergies: Penicillins (Verified Allergy, Unknown, HAS RECEIVED ANCEF W/O PROBLEMS, 05/24/20) aliskiren hemifumarate (Verified Allergy, Unknown, 05/24/20) lisinopril (Verified Adverse Reaction, Unknown, cough, 05/24/20) Patient Home Medication List Home Medication List Reviewed: Yes (MIKAYLA COLE) Apixaban (Eliquis) 5 Mg Tablet, 5 MG PO BID, (Reported) Entered as Reported by: JEANIE JETER on 05/24/20 1334 Aspirin (Aspir 81) 81 Mg Tablet., 81 MG PO DAILY, (Reported) Entered as Reported by: JEANIE JETER on 05/24/20 1334 Atorvastatin Calcium (Atorvastatin Calcium) 10 Mg Tablet, 10 MG PO HS, (Reported) Entered as Reported by: JEANIE JETER on 05/24/20 1334 Calcium Carb/D3/Magnesium/Zinc (Carlos Mag Zinc + D3 Tablet) 1 Each Tablet, 1 EACH PO DAILY, (Reported) Entered as Reported by: JEANIE JETER on 05/24/20 133 Cholecalciferol (Vitamin D3) (Vitamin D3) 50 Mcg Capsule, 50 MCG PO DAILY, (Reported) Entered as Reported by: JEANIE JETER on 05/24/20 133 Cyanocobalamin (Vitamin B-12) (Vitamin B-12) 2,000 Mcg Tablet.er, 2,000 MCG PO DAILY, (Reported) Entered as Reported by: JEANIE JETER on 05/24/20 133 Fish Oil/Dha/Epa (Fish Oil 1,200 mg Fish Oil) 1 Each Capsule, 1 EACH PO DAILY, (Reported) Entered as Reported by: JEANIE JETER on 05/24/201333 Latanoprost (Latanoprost) 2.5 Ml Drops, 2.5 ML OP BID, (Reported) Entered as Reported by: JEANIE JETER on 05/24/20 133 Levothyroxine Sodium (Synthroid) 75 Mcg Tablet, 75 MCG PO DAILY, (Reported) Entered as Reported by: JEANIE JETER on 05/24/20 133 Loratadine (Claritin) 10 Mg Capsule, 10 MG PO DAILY, (Reported) Entered as Reported by: JEANIE JETER on 05/24/201333 Metoprolol Succinate (Metoprolol Succinate) 50 Mg Tab.er.24h, 50 MG PO DAILY, (Reported) Entered as Reported by: JEANIE JETER on 05/24/20 133 Nitroglycerin (Nitroglycerin) 0.4 Mg Tab.subl, 0.4 MG SL UD PRN for CHEST PAIN, (Reported) Entered as Reported by: JEANIE JETER on 05/24/20 133 Pediatric Multivit Comb No.76 (Flintstones Complete) 1 Each Tab.chew, 1 EACH PO DAILY, (Reported) Entered as Reported by: JEANIE JETER on 05/24/20 133 Polyvinyl Alcohol/Povidone (Artificial Tears Drops) 15 Ml Drops, 15 ML OP PRN, (Reported) Entered as Reported by: JEANIE JETER on 05/24/20 1334 Pyridoxine HCl (Vitamin B-6) 100 Mg Tablet, 200 MG PO DAILY, (Reported) Entered as Reported by: JEANIE JETER on 05/24/204 Review of Systems Review of Systems Constitutional: No chills, No diaphoresis, No malaise, No weakness EENTM: No Double Vision, No Eye Pain Respiratory: Denies Cough, Denies Orthopnea; Shortness of Air Cardiovascular: Chest Pain Gastrointestinal: Denies Abdominal Pain Musculoskeletal: No back pain, No joint pain Skin: No change in color, No change in hair/nails (MIKAYLA COLE) All Other Systems Reviewed Negative Unless Noted: Yes (MIKAYLA COLE) Past Ncmmjrs-Qjrnps-Uwmmar Hx Patient Social History Tobacco Use?: No Use of E-Cig and/or Vaping dev: No Substance use?: No Alcohol Use?: Yes Alcohol Frequency: Rarely (MIKAYLA COLE) Immunizations Up To Date Tetanus Booster (TDap): Unknown Influenza Vaccine Up-to-Date: No; Not Current (MIKAYLA COLE) Past Medical History Surgery/Hospitalization HX: HTN, DM CABG, STENTS, BACK SURGERY, IVETTE Gallbladder, Hysterectomy Hypertension Reproductive Disorders: No Fibromyalgia, Chronic Back Pain Hypothyroidsim, Diabetes, Non-Insulin dep Glaucoma Depression (MIKAYLA COLE) Family Medical History Arthritis 19 FATHER 19 MOTHER G8 BROTHER G8 SISTER Cardiovascular disease 19 MOTHER G8 BROTHER Colon cancer G8 SISTER Completed stroke 19 MOTHER Hypertension 19 MOTHER G8 BROTHER Parkinson's disease G8 SISTER Thyroid disease G8 SISTER No Family History of: AIDS Alcoholism Alzheimer's disease Asthma Dementia Diabetes mellitus Drug abuse Kidney disease Myocardial infarction Prostate cancer Psychosocial problem Respiratory disorder Seizure disorder Severe allergy Tuberculosis Physical Exam Vital Signs Vital Signs - First Documented 08/27/23 16:32 Temp 36.7 Pulse 85 Resp 12 B/P (MAP) 148/86 (106) Pulse Ox 98 O2 Delivery Room Air (AFTAB HEMPHILL MD) Vital Signs Capillary Refill : (MIKAYLA COLE) Height, Weight, BMI Height: 5'3.00" Weight: 189lbs. 0.0oz. [id number]; 31.22 BMI Method:Estimated General Appearance: No Apparent Distress, WD/WN HEENT: PERRL/EOMI, TMs Normal, Normal ENT Inspection, Pharynx Normal Neck: Full Range of Motion, Normal Inspection, Non Tender, Supple Cardiovascular: Regular Rate, Rhythm, No Edema, No Gallop, No JVD, No Murmur Gastrointestinal: Normal Bowel Sounds, No Organomegaly, No Pulsatile Mass, Non Tender Extremity: Normal Capillary Refill, Normal Inspection, Normal Range of Motion, Non Tender Neurologic/Psychiatric: Alert, Oriented x3, No Motor/Sensory Deficits, Normal Mood/Affect, vision specialist II-XII Norm as Tested Skin: Normal Color, Warm/Dry (MIKAYLA COLE) Progress/Results/Core Measures Results/Orders Lab Results Laboratory Tests Test 08/27/23 16:43 08/27/23 19:32 Range/Units White Blood Count 7.6 4.3-11.0 10^3/uL Red Blood Count 4.00 3.80-5.11 10^6/uL Hemoglobin 11.7 11.5-16.0 g/dL Hematocrit 36 35-52 % Mean Corpuscular Volume 89 80-99 fL Mean Corpuscular Hemoglobin 29 25-34 pg Mean Corpuscular Hemoglobin Concent 33 32-36 g/dL Red Cell Distribution Width 12.9 10.0-14.5 % Platelet Count 279 130-400 10^3/uL Mean Platelet Volume 9.7 9.0-12.2 fL Immature Granulocyte % (Auto) 0 % Neutrophils (%) (Auto) 57 42-75 % Lymphocytes (%) (Auto) 31 12-44 % Monocytes (%) (Auto) 9 0-12 % Eosinophils (%) (Auto) 2 0-10 % Basophils (%) (Auto) 0 0-10 % Neutrophils # (Auto) 4.3 1.8-7.8 10^3/uL Lymphocytes # (Auto) 2.4 1.0-4.0 10^3/uL Monocytes # (Auto) 0.7 0.0-1.0 10^3/uL Eosinophils # (Auto) 0.1 0.0-0.3 10^3/uL Basophils # (Auto) 0.0 0.0-0.1 10^3/uL Immature Granulocyte # (Auto) 0.0 0.0-0.1 10^3/uL Prothrombin Time 13.1 12.2-14.7 SEC INR Comment 1.0 0.8-1.4 Activated Partial Thromboplast Time 32 24-35 SEC Sodium Level 138 135-145 MMOL/L Potassium Level 4.0 3.6-5.0 MMOL/L Chloride Level 105 98-107 MMOL/L Carbon Dioxide Level 22 21-32 MMOL/L Anion Gap 11 5-14 MMOL/L Blood Urea Nitrogen 14 7-18 MG/DL Creatinine 0.80 0.60-1.30 MG/DL Estimat Glomerular Filtration Rate 75 BUN/Creatinine Ratio 18 Glucose Level 110 H 70-105 MG/DL Calcium Level 9.7 8.5-10.1 MG/DL Corrected Calcium 9.6 8.5-10.1 MG/DL Magnesium Level 2.1 1.6-2.4 MG/DL Total Bilirubin 0.4 0.1-1.0 MG/DL Aspartate Amino Transf (AST/SGOT) 20 5-34 U/L Alanine Aminotransferase (ALT/SGPT) 17 0-55 U/L Alkaline Phosphatase 81 40-136 U/L Myoglobin 39.2 10.0-92.0 NG/ML Troponin I < 0.028 < 0.028 <0.028 NG/ML B-Type Natriuretic Peptide 43.4 <100.0 PG/ML Total Protein 7.3 6.4-8.2 GM/DL Albumin 4.1 3.2-4.5 GM/DL Lipase 20 8-78 U/L (AFTAB HEMPHILL MD) My Orders Orders - AFTAB HEMPHILL MD Ekg Tracing (08/27/23 16:31) (AFTAB HEMPHILL MD) Vital Signs/I&O 08/27/23 16:32 Temp 36.7 Pulse 85 Resp 12 B/P (MAP) 148/86 (106) Pulse Ox 98 O2 Delivery Room Air (AFTAB HEMPHILL MD) Blood Pressure Mean: 106 Comment Sinus rhythm, possible left atrial large man, possible right ventricular conduct ion delay, possible left ventricular hypertrophy, 77 bpm, QRS duration 86 MS, QTc 397 MS (MIKAYLA OCLE) Departure Communication (PCP) Reviewed previous ER visits, H&P, lab testing. Chest pain over the past 2 months. Pain located to the right sided chest seems to occur with exertion. Pain also on the left side of chest over the past few weeks. Currently asymptomatic. Very anxious. Cardiac history. History of hypertension, diabetes. Cardiac work-up was initiated. She did receive a full aspirin. Nothing for pain as she is currently asymptomatic. Heart score 4. She is not tachycardic or hypoxic. Currently on Xarelto. No appreciation of lower leg swelling redness bruising. EKG showed sinus rhythm without evidence of ST elevation or depression or arrhythmia. CBC, CMP grossly unremarkable. Normal troponin and BNP. Chest x-ray was negative for pneumonia, pneumothorax. She remained asymptomatic here. After her lab work returned contacted her rail assembler Dr. Saldana. Discussed admission versus outpatient follow-up. Would be more than happy to see the patient inpatient or outpatient. Discussed inpatient for cardiac work-up with patient. She did not seem interested for admission. Discussed with patient that I am concerned that this could potentially be cardiac especially with the chest pain with exertion relieved when she sits. She states she has things to do tomorrow and a birthday alliance party. Discussed a 3-hour troponin and she would rather proceed with this plan. She remained asymptomatic during her stay. 3-hour troponin was negative. She states she has a follow-up with Dr. Cam next week. Suggest following up in the next 1 to 2 days by calling their office. If any worsening symptoms such as chest pain or shortness of breath return back to ED. (MIKAYLA COLE) Impression Primary Impression: Chest pain Disposition: 01 HOME, SELF-CARE Condition: Stable Departure-Patient Inst. Decision time for Depature: 20:02 (MIKAYLA COLE) Referrals: RADHA SANTOS MD (PCP/Family) Primary Care Physician CLARICE SALDANA MD FACP FACC CCDS Patient Instructions: Chest Pain (DC) Add. Discharge Instructions: At this time recommend following up with your rail assembler for further evaluation. If any worsening symptoms return back to ED. All discharge instructions reviewed with patient and/or family. Voiced understanding. ATTENDING PHYSICIAN NOTE: I was physically present as attending physician in the emergency department during the care of this patient, but I was not directly involved in the decision making or delivery of care for this patient. (AFTAB HEMPHILL MD) MIKAYLA COLE Aug 27, 2023 17:00 AFTAB HEMPHILL MD Aug 28, 2023 17:25
[2023-08-27 17:07] LABS: ALBUMIN 4.1 GM/DL (3.2-4.5); PROTHROMBIN TIME PATIENT 13.1 SEC (12.2-14.7)
[2023-08-27 17:08] LABS: CHLORIDE 105 MMOL/L (98-107); SODIUM 138 MMOL/L (135-145)
[2023-08-27 17:09] LABS: CALCIUM 9.7 MG/DL (8.5-10.1)
[2023-08-27 17:10] LABS: GLUCOSE 110 MG/DL (70-105); TOTAL PROTEIN 7.3 GM/DL (6.4-8.2)
[2023-08-27 17:11] LABS: CARBON DIOXIDE 22 MMOL/L (21-32)
[2023-08-27 17:12] LABS: BILIRUBIN,TOTAL 0.4 MG/DL (0.1-1.0)
[2023-08-27 17:13] LABS: ALKALINE PHOSPHATASE 81 U/L (40-136); GFR ESTIMATED 75
[2023-08-27 17:14] LABS: BUN/CREATININE RATIO 18
[2023-08-27 17:16] LABS: ALANINE AMINOTRANSFERASE 17 U/L (0-55); MAGNESIUM 2.1 MG/DL (1.6-2.4)
[2023-08-27 17:17] LABS: LIPASE 20 U/L (8-78)
--- NOTE | 2023-08-27 17:20 | Diagnostic Imaging Report ---
EXAMINATION: Chest 1 view HISTORY: Chest pain COMPARISON: None available. FINDINGS: The lungs are clear without edema or pneumonia. No pleural effusion or pneumothorax. Heart size is normal. There are median sternotomy wires. Loop recorder is present. IMPRESSION: 1. Clear lungs. Dictated by: Dictated on workstation # [id number]
== END 2023-08-27 20:08 | disposition home or self-care (01) ==
LOC: EDUNIT# 16:25 → ER 16:28
DX: R07.89 Other chest pain (principal); Z79.01 Long term (current) use of anticoagulants
CPT/HCPCS: 36415; 71045; 80053; 83690; 83735; 83874; 83880; 84484; 85025; 85610; 85730; 93005; 93041